=== PATIENT | male | born 1950 | race Caucasian/White ===

== ENCOUNTER → 2024-02-01 09:13 | Outpatient (REF) | payer MEDICARE, SELFPAY | LOC: HWRAD 09:13 | PROVIDERS: ATTENDING PHYSICIAN Family Medicine | DX: Z87.891 Personal history of nicotine dependence (principal) | CPT/HCPCS: 71271 ==

== ENCOUNTER → 2024-06-01 12:09 | Outpatient (REF) | payer MEDICARE, SELFPAY | LOC: HWRAD 12:09 | PROVIDERS: ATTENDING PHYSICIAN Family Medicine | DX: J44.1 Chronic obstructive pulmonary disease with (acute) exacerbation (principal) | CPT/HCPCS: 71046 ==

== ENCOUNTER 2024-06-11 03:51 | Inpatient (IN) | payer MEDICARE, SELFPAY ==
[2024-06-11] VITALS (13 sets, daily range): BP systolic 109–156; BP diastolic 60–97; BMI 32.6; BMI 30.9
--- NOTE | 2024-06-11 02:11 | ED.GENMED ---
History of Present Illness
<Aki Matthew, DO - Last Filed: 06/11/24 03:00>
General
Chief Complaint: Breathing Problem
Source: patient
Exam Limitations: none
Time Seen by Provider: 06/11/24 02:15
Nursing documentation reviewed up to this point in time: agreed with
History of Present Illness
History of Present Illness:
73-year-old male presents with dyspnea and swelling that has been present for the last week to week and a half. Patient states he has been very short of breath. Patient does have a history of COPD and emphysema. He is an everyday smoker though he
is trying to quit. He is down to 5 to 10 cigarettes/day. He also drinks alcohol having 3-6 beers per evening. Patient states that he is on Lasix. He has had leg swelling but reports that this leg swelling is more intense. Denies fever, chills,
chest pain, or shortness of breath..
Patient is not on home oxygen
Vital signs are stable. Patient was hypoxic on room air. O2 sats were 81 to 88%
Nursing note reviewed. I agree with nursing documentation up to this point in time.
Home Meds and allergies reviewed.
NUMBER AND COMPLEXITY OF PROBLEMS ADDRESSED AT THE ENCOUNTER
� Chronic conditions affecting care: Emphysema/COPD, hypertension, hyperlipidemia, CHF, chronic tobacco use, chronic alcohol use
� Acute Exacerbation and/or Progression of Chronic Illness: COPD/CHF
� Differential Diagnosis includes: COPD exacerbation, CHF exacerbation, pneumonia, bronchitis
AMOUNT AND/OR COMPLEXITY OF DATA TO BE REVIEWED AND ANALYZED
I performed an independent evaluation of the following and my interpretation is:
EKG: EKG shows sinus rhythm with PVCs present. Rate of 76. Normal intervals, normal axis. No evidence of acute ischemia present.
CT:
X-rays:
Ultrasound:
Laboratory Studies:
Other:
Review of other/old records: Discharge summary from 08/12/2023, primary care provider visit from January 14, 2023
Clinical information was obtained by an independent historian:
Prescriptions/Medications Considered but not given:
Further testing considered but not performed:
RISK OF COMPLICATIONS AND/OR MORBIDITY OR MORTALITY OF PATIENT MANAGEMENT
Social determinants of health affecting care: Good Social Support
Discussion with other providers: Hospitalist for admission
Escalation of care including admission/observation vs risk of discharge considered: Patient is hypoxic on room air. He will be brought into the hospital
CRITICAL CARE NOTE:
Critical care statement: A total of 30 minutes of critical care time was provided for this patient. This time is separate from time utilized to perform the aforementioned documented procedures. Aggregate critical care time includes only time
during which I was engaged in work directly related to the patient's care, as described above, whether at the bedside or elsewhere in the Emergency Department.
Total Time (exclusive of procedures): 30
Update:
Past History
<Margarette Triana MD, Resident - Last Filed: >
Past History
ED Past Medical History: COPD, HTN, Hypercholesterolemia, NIDDM, IL, Other (agre with documented pmhx and add: COPD.) and Other (TIA, diabetes mellitus type 2, hyperlipidemia, COPD, CAD, IL with CABG, hypertension, sleep apnea, hepatitis C)
ED Past Surgical History: Appendectomy, Cardiac (stents. Has had several stents. Last heart surgery 1997.), Orthopedic and Tonsilectomy
Social History
Tobacco: Smoker
Alcohol: Occasional
Drug: Marijuana
Personal:
Living: with family
Employment: Disabled
Family History
Family History: CAD
Review of Systems
<DO Leyla Floyd Last Filed: 06/11/24 03:00>
Review of Systems
Allergies reviewed?: Yes
All Other Systems: ROS reviewed and negative except as documented in HPI and ROS
Musculoskeletal: Reports edema
Psychiatric: Reports anxiety
Phy Exam
<DO Leyla Floyd Filed: 06/11/24 03:00>
General Physical Exam
General Presentation: moderate distress
General age: appears older than age
General Skin: warm and cyanotic
General Habitus: debilitated
General Mental: alert
General Hydration: appears well hydrated
ENT Exam
ENT Exam: EOMI, pharynx normal, neck supple and normocephalic
Eye Exam
Eye Exam: PERRL, cornea clear and conjunctiva normal
Cardiovascular Exam
Cardiovascular Exam: regular rate/rhythm
Pulmonary Exam
Pulmonary Exam: generalized wheezing
Respirations: mild increase in effort
Breath Sounds: Wheeze: generalized
Gastrointestinal Exam
Gastrointestinal Exam: normal bowel sounds, non tender, soft, no organomegaly, no pulsatile mass and non distended
Neurological Exam
Neurological Exam: alert and oriented x3
Musculoskeletal Exam
Musculoskeletal Exam: full ROM and no edema
Skin Exam
Skin Exam: cyanosis and mottled
Psychiatric Exam
Psychiatric Exam: normal mood/affect
Scores
<Aki Matthew, DO - Last Filed: 06/11/24 03:00>
Heart Failure Risk
Heart Failure Risk Score: Yes
History of Stroke or TIA: Yes
History of intubation for respiratory distress: No
Heart rate on ED arrival >/= 110: No
SaO2 <90% on arrival on room air: Yes
HR >/=110 during 3min walk test (or too ill to perform test): Yes
ECG has acute ischemic changes: Yes
Urea >/=12mmol/L (BUN 33.6mg/dL): No
Serum CO2>/=35mmol/L: Yes
Troponin I or T elevated to [place] Level (0.4mg/dL): No
NT-proBNP >/=5,000ng/L (5,000pg/ml): Yes
HF Risk Score: 9
Admission Status: VERY HIGH RISK 89% Consider admission to hospital
Course
<Aki Matthew, DO - Last Filed: 06/11/24 03:00>
Orders/Labs/Results
Orders:
Orders
06/11/24 02:13
ECG [Electrocardiogram (*1)] Urgent
Reason for Study: Shortness of Breath
EKG- Treatment ONCE
06/11/24 02:15
Furosemide [Lasix] 80 mg IV NOW STA
Pulse Ox/cont/shift [RESP] Stat
Quantity: 4
06/11/24 02:16
CR Chest - 2 Views Urgent
Comment:
Reason For Exam: dyspnea
06/11/24 02:19
Complete Blood Count/With Diff Urgent
Comprehensive Metabolic Panel Urgent
Magnesium Urgent
NT-proBNP Urgent
PTT Urgent
Prothrombin Time Urgent
TSH Urgent
Troponin I Urgent
Abnormal Lab Results
06/11/24
02:19
WBC 11.8 H 10^3/uL
(4.8-10.8)
RBC 6.22 H 10^6/uL
(4.70-6.10)
Hct 54.1 H %
(39.0-52.0)
MCHC 31.1 L g/dL
(33.0-37.0)
RDW 17.7 H %
(11.5-14.5)
Potassium 5.2 H mmol/L
(3.5-5.1)
Carbon Dioxide 37 H mmol/L
(22-30)
BUN 23 H mg/dl
(9-20)
Glucose 141 H mg/dl
(70-99)
Troponin I 0.073 H* ng/ml
06/11/24 02:19
06/11/24 02:19
Vital Signs
Initial and Last Documented VS:
Initial Vital Signs
Temp Pulse Resp BP Pulse Ox
97.8 F 84 30 154/88 86
06/11/24 02:06 06/11/24 02:06 06/11/24 02:06 06/11/24 02:06 06/11/24 02:06
Last Documented Vital Signs
Temp Pulse Resp BP Pulse Ox
97.8 F 77 30 156/87 95
06/11/24 02:06 06/11/24 02:20 06/11/24 02:06 06/11/24 02:20 06/11/24 02:17
<Margarette Triana MD, Resident - Last Filed: >
Orders/Labs/Results
Orders:
Orders
06/11/24 02:13
ECG [Electrocardiogram (*1)] Urgent
Reason for Study: Shortness of Breath
EKG- Treatment ONCE
06/11/24 02:15
Furosemide [Lasix] 80 mg IV NOW STA
Pulse Ox/cont/shift [RESP] Stat
Quantity: 4
06/11/24 02:16
CR Chest - 2 Views Urgent
Comment:
Reason For Exam: dyspnea
06/11/24 02:19
Complete Blood Count/With Diff Urgent
Comprehensive Metabolic Panel Urgent
Magnesium Urgent
NT-proBNP Urgent
PTT Urgent
Prothrombin Time Urgent
TSH Urgent
Troponin I Urgent
Abnormal Lab Results
06/11/24
02:19
WBC 11.8 H 10^3/uL
(4.8-10.8)
RBC 6.22 H 10^6/uL
(4.70-6.10)
Hct 54.1 H %
(39.0-52.0)
MCHC 31.1 L g/dL
(33.0-37.0)
RDW 17.7 H %
(11.5-14.5)
Potassium 5.2 H mmol/L
(3.5-5.1)
Carbon Dioxide 37 H mmol/L
(22-30)
BUN 23 H mg/dl
(9-20)
Glucose 141 H mg/dl
(70-99)
Troponin I 0.073 H* ng/ml
06/11/24 02:19
06/11/24 02:19
Vital Signs
Initial and Last Documented VS:
Initial Vital Signs
Temp Pulse Resp BP Pulse Ox
97.8 F 84 30 154/88 86
06/11/24 02:06 06/11/24 02:06 06/11/24 02:06 06/11/24 02:06 06/11/24 02:06
Last Documented Vital Signs
Temp Pulse Resp BP Pulse Ox
97.8 F 77 30 156/87 95
06/11/24 02:06 06/11/24 02:20 06/11/24 02:06 06/11/24 02:20 06/11/24 02:17
<Aki Matthew DO - Last Filed: 06/11/24 03:00>
*Critical Care Note
Total Time (30-74mins, 75-104mins- exclusive of procedures): 30
comment:
Critical care statement: A total of 30 minutes of critical care time was provided for this patient. This time is separate from time utilized to perform the aforementioned documented procedures. Aggregate critical care time includes only time
during which I was engaged in work directly related to the patient's care, as described above, whether at the bedside or elsewhere in the Emergency Department.
ED Attending Note
<Margarette Triana MD, Resident - Last Filed: >
-
Portions of this chart may have been created with voice recognition software.� Occasional wrong word or��sound alike� substitutions may have occurred due to the inherent limitations of voice recognition software.
Discharge Plan
Departure
Patient Disposition: Admit
Date of Disposition: 06/11/24
Time of Disposition: 02:59
Admit to: Telemetry
Presentation/result/management discussed w/ accepting MD/DO: Hospitalist
Discharge Problem:
Acute exacerbation of CHF (congestive heart failure), Smoker, COPD with exacerbation
Prescriptions:
No Action
isosorbide mononitrate 60 mg Tablet Extended Release 24 Hr
60 mg PO DAILY
nitroglycerin 0.4 MG tablet, sublingual
0.4 mg sublingual [id number] PRN (Reason: chest pain)
albuterol sulfate [ProAir HFA] 90 mcg/actuation Hfa Aerosol Inhaler
2 puff INHALATION R QIDPRN PRN (Reason: sob)
metoprolol tartrate 25 MG tablet
50 mg PO BID
clopidogrel [Plavix] 75 mg Tablet
75 mg PO DAILY
aspirin 81 mg Tablet,Delayed Release (Dr/Ec)
81 mg PO DAILY
furosemide [Lasix] 20 mg Tablet
20 mg PO DAILY
Trelegy Ellipta 100-62.5-25 mcg Blister With Device
1 inh INHALATION R DAILY@1999
atorvastatin 80 mg Tablet
80 mg PO HS
acetaminophen 325 mg Tablet
650 mg PO Q4HPRN PRN (Reason: mild pain or temp > 100.4 F) Qty: 1 0RF
metformin 500 mg Tablet
500 mg PO DAILY@0800 Qty: 0 0RF
Rx Instructions:
Hold after Wednesday dose
lisinopril 40 mg Tablet
40 mg PO DAILY Qty: 0 0RF
Rx Instructions:
hold on the day of surgery
Referrals:
Modesta Turner DO [Family Provider] -
Interventions
Interventions:
*Risk Screen - Suicide Last Done: 06/11/24 02:06
*General Assessment Last Done: 06/11/24 02:15
*Neglect/Abuse Screening Last Done: 06/11/24 02:06
ED- Fall Risk Assessment Last Done: 06/11/24 02:17
ED- Cardiac Assessment Last Done: 06/11/24 02:17
ED- Pulmonary Assessment Last Done: 06/11/24 02:17
Discharge Date and Time
Print Language: PASHTO
[2024-06-11] MEDS: LASIX 80 MG IV (02:20)
[2024-06-11 02:33] LABS: Hematocrit 54.1 % (39.0-52.0); Hemoglobin 16.8 g/dL (13.0-18.0); Mean Corp Hgb Conc. 31.1 g/dL (33.0-37.0); Mean Platelet Volume 10.3 fL (7.4-10.4); Platelet Count 331 10^3/uL (130-400); Red Blood Cell Count 6.22 10^6/uL (4.70-6.10); Red Cell Dist. Width 17.7 % (11.5-14.5); White Blood Cell Count 11.8 10^3/uL (4.8-10.8)
[2024-06-11 02:38] LABS: INR 0.98; PT 12.8 Sec (11.4-14.6)
[2024-06-11 02:45] LABS: ALT (SGPT) 30 U/L (0-50); AST (SGOT) 42 U/L (17-59); Alkaline Phosphatase 95 U/L (38-126); Blood Urea Nitrogen 23 mg/dl (9-20); Calcium 9.8 mg/dl (8.4-10.2); Carbon Dioxide 37 mmol/L (22-30); Chloride 98 mmol/L (98-107); Estimated Creatinine Clearance 88 ml/min; Glucose 141 mg/dl (70-99); Potassium 5.2 mmol/L (3.5-5.1); Sodium 140 mmol/L (135-145); Total Bilirubin 0.9 mg/dl (0.2-1.3); Total Protein 6.7 g/dl (6.3-8.2); eGFR > 60.00
[2024-06-11 02:57] LABS: NT-proBNP 12300 pg/ml; Troponin I 0.073 ng/ml
[2024-06-11 03:00] LABS: % Basophils 0.3 % (0-2); % Eosinophils 1.1 % (0-6); % Immature Granulocytes 0.3 % (0-0.5); % Lymphocytes 14.6 % (20.5-51.1); % Neutrophils 73.7 % (42.2-75.2); Absolute Eosinophils 0.1 10^3/uL (0-0.7); Absolute Lymphocytes 1.7 10^3/uL (1.2-3.4); Absolute Monocytes 1.2 10^3/uL (0.1-0.6); Absolute Neutrophils 8.7 10^3/uL (1.4-6.5); Anisocytosis 1+; Hypersegmented Neutrophil Occasional; Normal RBC Morphology No; Nucleated Red Blood Cells % 0.2 % (-); Target Cells 1+
[2024-06-11 03:01] LABS: Ovalocytes Occasional; Stomatocytes 1+
[2024-06-11 03:18] LABS: TSH 3.43 uIU/ml (0.47-4.68)
--- NOTE | 2024-06-11 03:21 | HPS.HSE ---
Family Physician
-
Family Physician: Modesta Turner
Chief Complaint
-
SoB , Leg and abdomen swelling
History of Present Illness
72M current smoker, ETOH use disorder HX COPD, HTN, HLD, GERD, hep C, diabetes on metformin seen at ER for evalaution of abdominal swelling and Leg sweeling assocaied with Dyspnic at rest.
- noted 20 lbs wt gain over 10 months
- associated with Dyspneic at rest and tachypneic at ER
- denied CP and plapitation
Medical History
Past Medical History
Past Medical History: Reports Other
Additional Past Medical History:
COPD
Hypertension
Hyperlipidemia
Diabetes
MRI
TIA
Coronary artery disease
Sleep apnea
Hepatitis C
Past Surgical History: Reports Other
Additional Past Surgical History:
Appendectomy
cardiac stent
Tonsillectomy
Social History
Tobacco: Smoker (1 pack a day)
Alcohol: Occasional
Drug: Other (Occasional pot smoker)
Family History
Family History: Not pertinent
Allergies / Home Medications
Allergies reflects when Allergies were last updated in [facility].
Home Medications with original date entered in [facility]
Allergy/Medication List:
Allergies
Allergy/AdvReac Type Severity Reaction Status Date / Time
Sulfa (Sulfonamide Allergy hives,itchi Verified 07/26/23 16:07
Antibiotics) ng
Home Medications
albuterol sulfate 90 mcg/actuation aerosol inhaler (ProAir HFA) 2 puff inhalation R QIDPRN PRN sob 02/26/11
isosorbide mononitrate 60 mg tablet,extended release 24 hr 60 mg PO DAILY 02/26/11
lisinopril 40 mg tablet 40 mg PO DAILY 02/26/11
metformin 500 mg tablet 500 mg PO DAILY@0800 02/26/11
metoprolol tartrate 25 mg tablet 25 mg PO BID 02/26/11
nitroglycerin 0.4 mg sublingual tablet 0.4 mg sublingual [id number] PRN chest pain 02/26/11
aspirin 81 mg tablet,delayed release 81 mg PO DAILY 07/25/23
cephalexin 500 mg capsule 500 mg PO QID 10 days #40 caps 07/25/23
clopidogrel 75 mg tablet (Plavix) 75 mg PO DAILY 07/25/23
fluticasone fur. 100 mcg-umeclid 62.5 mcg-vilant 25 mcg inhalat.powder (Trelegy Ellipta) 1 inh inhalation R DAILY 07/25/23
furosemide 20 mg tablet (Lasix) 20 mg PO DAILY 07/25/23
amoxicillin 875 mg-potassium clavulanate 125 mg tablet 1 tab PO BID #20 tabs 07/26/23
Review of Systems
-
Constitutional: Reports No Symptoms
EENT: Reports No Symptoms
Respiratory: Reports See HPI and Trouble Breathing
Cardiac: Reports See HPI
Abdomen/GI: Reports Other (ant abdo wall edema )
: Reports No Symptoms
Musculoskeletal: Reports Edema (both legs )
Skin: Reports No Symptoms
Neurological: Reports No Symptoms
Endocrine: Reports No Symptoms
Hematologic/Lymphatic: Reports No Symptoms
Psych: Reports No Symptoms
Physical Exam
Vital Signs
Vital Signs
Temp Pulse Resp BP Pulse Ox
97.8 F 79 16 137/97 98
06/11/24 02:06 06/11/24 03:00 06/11/24 03:00 06/11/24 03:00 06/11/24 02:21
Physical Exam
General: No Apparent Distress, Comfortable and Conversant
HEENT: NormoCephalic and Anicteric
Respiratory: Wheezes (exp wheeze )
Cardiac: S1/S2 and Regular Rhythm; No Murmur
GI: Soft, Non Tender and Distended
Skin: Warm and Dry
Neuro: AO x 3
Laboratory Results
-
06/11/24 02:19
06/11/24 02:19
Laboratory Results
PT 12.8 Sec (11.4-14.6) 06/11/24 02:19
INR 0.98 06/11/24 02:19
APTT 24.0 Sec (23.4-35.0) 06/11/24 02:19
Total Bilirubin 0.9 mg/dl (0.2-1.3) 06/11/24 02:19
AST 42 U/L (17-59) 06/11/24 02:19
ALT 30 U/L (0-50) 06/11/24 02:19
Alkaline Phosphatase 95 U/L (38-126) 06/11/24 02:19
Troponin I 0.073 ng/ml H* 06/11/24 02:19
Data Reviewed
-
Diagnostic Radiology: Image Personally Visualized and interpreted
Medical Tests (Nuc Med, Echo, EKG etc): Report Reviewed by me
Lab Data: Labs Reviewed by me
Old Records: Reviewed
Impression/Plan
-
WT 90.8 kg(08/05/23 ) ---> 100 kg ( 06/11/24 ): Gained 9.2 kg = 20.2 lb
Data
WCC 11.8
K 5.2
CO2 37
BUN 23
nl Cr nl eGFR
TPNI 0.073
pro BNP 10342 - 687 on 07/29/23
EKG
SINUS RHYTHM WITH OCCASIONAL PREMATURE VENTRICULAR COMPLEXES
NONSPECIFIC T WAVE ABNORMALITY
ABNORMAL ECG
WHEN COMPARED WITH ECG OF 04-AUG-2023 07:03,
PREMATURE VENTRICULAR COMPLEXES ARE NOW PRESENT
CRITERIA FOR INFERIOR INFARCT ARE NO LONGER PRESENT
NONSPECIFIC T WAVE ABNORMALITY NOW EVIDENT IN INFERIOR LEADS
T WAVE INVERSION NOW EVIDENT IN ANTERIOR LEADS
NONSPECIFIC T WAVE ABNORMALITY, IMPROVED IN LATERAL LEADS
CXR pending report
07/28/23 TTE
LVEF 51%
Stage I diastolic dysfunction
Basal to mid inferior wall severe hypokinesis
Normal right ventricular size and function.
No significant valvular disease.
Last hospitalist admission: 07/26/23 - 07/30/23
Primary diagnosis:
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
Bilateral peripheral arterial disease
Mild exacerbation of chronic obstructive pulmonary disease
ASSESSMENT & PLAN
Pending Rx reconciliation
Acute on chr CHF suspect underlying Chr HFmEF
Significant volume overload ( Gained 20 lbs over last 10 months) ? ETOH related liver dz
- cont. IV Lasix 40 BID
- cont> Lisinopril , IMN and Metoprolol
- held Metformin due to acute on chr CHF
- To consider GDMT
- O2 support to keep Pox > 94
- ECHO
- Daily Wt and IOs
- daily BMP
- DCA card consult
Elevated TPNI suspect NIMI
- Trend TPNI till peak
- on ASA and Plavix, BB and Imdur
Distended abdomen ? Free fluid
- US complete abdomen to eval for ascites
Daily ETOH reports 2 -3 cans of Beer only use disorder
- MSAS low risk protocol
HX COPD
- DuoNeb PRN
-Trelegy continued
HX CAD
-Status post cardiac stent
- cont. ASA, Plavix and
Essential hypertension
-BP stable
- on lisinopril, metoprolol and Imdur, Lasix continued
Hyperlipidemia
- cont. statin
T2DM
- add ISS low
- hold metformin due to acute CHF
DVT Px: LMWH
Code: Full
IMU
[2024-06-11] MEDS: ProAIR HFA INHALER 2 PUFF INH ×2 (05:50→19:53)
--- NOTE | 2024-06-11 06:32 | PTCARENOTE ---
Pt arrived from ED to IMU approx 0500. Transferred self from stretcher to room bed without incidence. Complete CHG bath provided. Pt is AAO3, poor historian with medical hx. Pt denies pain. Lung sounds are decreased/crackles throughout w exp wheeze,
+tachypneic, +SCHULTE, pt reports oc moist productive cough w sung/brown sputum, pox 97% on 4L O2 nasal cannula. Telemetry rhythm reveals SR w oc PVCs, HR 70's, +2 lower extremity edema noted, palpable peripheral pulses present. +BS, abdomen round
distended. Pt received IV Lasix in ED, frequent urinal use upon arrival to unit. R AC int flushed and patent, capped. Call liu within reach, safe environment maintained. Will monitor.
[2024-06-11 06:42] LABS: Blood Urea Nitrogen 21 mg/dl (9-20); Chloride 94 mmol/L (98-107); Estimated Creatinine Clearance 96 ml/min; GGTP 18 U/L (15-73); Glucose 119 mg/dl (70-99); INR 0.98; PT 12.8 Sec (11.4-14.6); Potassium 4.3 mmol/L (3.5-5.1); Sodium 140 mmol/L (135-145); eGFR > 60.00
[2024-06-11 06:53] LABS: Carbon Dioxide 36 mmol/L (22-30)
[2024-06-11 06:54] LABS: Troponin I 0.071 ng/ml
[2024-06-11] MEDS: NOVOLOG FLEXPEN-LOW RESISTANCE SC ×2 (07:39→17:30)
[2024-06-11] MEDS: PLAVIX 75 MG PO (07:39)
[2024-06-11] MEDS: ASPIR LOW (ENTERIC COATED) 81 MG PO (07:39)
[2024-06-11] MEDS: ZESTRIL 40 MG PO (07:39)
[2024-06-11] MEDS: FOLVITE 1 MG PO (07:40)
[2024-06-11] MEDS: THIAMINE INJECTION 200 MG IV ×2 (07:40→19:27)
[2024-06-11] MEDS: LASIX 40 MG PO (07:40)
[2024-06-11 07:51] LABS: Glucose - Point of Care 120 mg/dl (70-99)
[2024-06-11] MEDS: SPIRIVA RESPIMAT 2.5 MCG 2 PUFF INH (08:00)
[2024-06-11] MEDS: SYMBICORT 80/4.5 MCG INHALER 2 PUFF INH ×2 (08:01→19:53)
[2024-06-11 08:59] LABS: Glycohemoglobin (HgbA1c) 7.9 % (4.0-5.6)
--- NOTE | 2024-06-11 09:31 | W.PN.HOSP.TC ---
Today's Communication/Plan
-
IV Lasix.
Assessment / Plan
Assessment / Plan
Physical exam:
General: Acutely ill
HEENT: Normocephalic, Atraumatic and Moist Mucous Membranes
Respiratory: Bilateral coarse crackles at the bases; Negative Wheezes, Rales or Rhonchi
Cardiac: Regular Rhythm and S1/S2
GI: Soft, Nontender and Distended
Musculoskeletal: Bilateral lower extremity edema. No Clubbing, No Cyanosis
Neuro: Awake, Alert and Oriented
Psych: Calm
A/P:
Acute on chronic systolic CHF:
IV diuretics, Lasix 40 mg twice a day (switched oral to IV when I saw him)
BNP upon admission, 12,300
Monitor strict I/O
Monitor daily weight
Monitor renal function and electrolytes
Reviewed latest echocardiogram on our system
Continue guideline-directed medical therapy for heart failure (GDMT)
Fluid restriction
Salt restriction
Heart failure education
Follow up clinical response
Cardiology consult
Plan to repeat echocardiogram
Elevated troponin- elevated troponin due to non-ischemic myocardial injury:
Continue to trend troponin
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
Cardiology on board
CAD/peripheral vascular disease:
Continue dual antiplatelet therapy
Continue high-dose statin
COPD:
Continue Spiriva
Continue Symbicort
Add bronchodilators as needed
Hypertension:
Continue SANTIAGO inhibitor
Monitor blood pressure and adjust medications according
Hyperlipidemia:
Continue high-dose statin, atorvastatin 80 mg nightly
Diabetes mellitus type 2:
Insulin sliding scale
Agree holding metformin
Hemoglobin A1c 7.9
Alcohol use disorder:
On MSA protocol
Continue to monitor closely
DVT prophylaxis:
Lovenox
CODE STATUS:
Full code
Anticipated Discharge: > 48 hours
Subjective/Interval History
-
Date of Service: June 11, 2024
Patient continues to have significant peripheral edema. He also has shortness of breath. He denies chest pain. Afebrile
Objective Data
-
Labs:
Laboratory Results
06/11/24 06/11/24
02:19 05:55
WBC 11.8 H
Hgb 16.8
Hct 54.1 H
Plt Count 331
PT 12.8 12.8
INR 0.98 0.98
APTT 24.0
Sodium 140 140
Potassium 5.2 H 4.3
Chloride 98 94 L
Carbon Dioxide 37 H 36 H
BUN 23 H 21 H
Creatinine 0.9 0.8
Glucose 141 H 119 H
Calcium 9.8 9.0
Total Bilirubin 0.9
AST 42
ALT 30
Alkaline Phosphatase 95
Vital Signs:
Vital Signs
Temp Pulse Resp BP Pulse Ox
98.1 F 84 22 156/83 94
06/11/24 07:15 06/11/24 08:00 06/11/24 08:00 06/11/24 07:39 06/11/24 08:31
I&O
06/10/24 06/11/24 06/12/24
06:59 06:59 06:59
Intake Total 480 / 480 40 / 40
Output Total 2800 / 2800 1365 / 1365
Balance -2320 / -2320 -1325 / -1325
--- NOTE | 2024-06-11 09:58 | CON.CAR ---
Consultation
Consultation Request
Date/Time Consultation Requested: June 11, 2024
Date/Time Consultation Performed: June 11, 2024
Requesting Provider: Hospitalist service
Performing Provider: Dr. Ross Rice
Reason for Consultation: Acute congestive heart failure
Medical History
-
Chief Complaint: Shortness of breath and significant weight gain
History of Present Illness:
He presents to [facility] emergency department on June 11, 2024 with increasing dyspnea on exertion and 20 pound weight gain over the course of several months. Accelerated SCHULTE X 2 1 week.
No chest pain.
He is found to be in acute congestive heart failure with marked volume overload.
- proBNP is 12,300
- Chest x-ray with prominent vascular markings consistent with vascular congestion
- Troponin is 0.073 and 0.071
- Electrocardiogram finds sinus rhythm with PVCs, T wave inversions in the anterior leads and nonspecific ST and T wave abnormalities in the inferior leads (T wave abnormalities and ST and T wave abnormalities are new compared to EKG August 04
2022).
Recent cardiac testing:
- Echocardiogram July 28, 2023 finds normal LV size and function with LVEF in the low normal range estimated at 51% with basal to mid inferior wall severe hypokinesis. No significant valvular disease.
- Dobutamine nuclear stress test July 29, 2023 finds large inferior and basal inferior septal infarct without stephanie-infarct ischemia. Baseline LVEF 43%
PMH:
Poor medical compliance
CAD s/p remote CABG at [facility] and PCI at [facility]
History of CVA 2010
PVD, right femoral endarterectomy with saphenous vein angioplasty and right femoral to PT bypass August 04, 2023, Dr. Riley
Osteomyelitis toe
COPD
HTN
HLD
DM2
Ongoing tobacco use
Social History
Tobacco: Smoker
Alcohol: Occasional
Drug: None
Personal: Single
Living: With Family (nephew)
Employment: Retired
Family History
Family History: Reviewed & Not Pertinent
Allergies / Home Medications
Allergy/AdvReac Type Severity Reaction Status Date / Time
Sulfa (Sulfonamide Allergy hives,itchi Verified 06/11/24 02:08
Antibiotics) ng
�Medication �Instructions �Recorded �Confirmed �Type
albuterol sulfate 90 mcg/actuation 2 puff inhalation R QIDPRN PRN sob 02/26/11 06/11/24 History
aerosol inhaler (ProAir HFA)
isosorbide mononitrate 60 mg 60 mg PO DAILY Arrhythmia 02/26/11 06/11/24 History
tablet,extended release 24 hr
metoprolol tartrate 25 mg tablet 50 mg PO BID Heart 02/26/11 06/11/24 History
Disease/Condition
nitroglycerin 0.4 mg sublingual 0.4 mg sublingual [id number] PRN 02/26/11 06/11/24 History
tablet chest pain
aspirin 81 mg tablet,delayed 81 mg PO DAILY Blood Clot 07/25/23 06/11/24 History
release Prevention/Tx
clopidogrel 75 mg tablet (Plavix) 75 mg PO DAILY Blood Clot 07/25/23 06/11/24 History
Prevention/Tx
fluticasone fur. 100 mcg-umeclid 1 inh inhalation R DAILY@199907/25/23 06/11/24 History
62.5 mcg-vilant 25 mcg Lung/Breathing Issues
inhalat.powder (Trelegy Ellipta)
furosemide 20 mg tablet (Lasix) 20 mg PO DAILY Fluid 07/25/23 06/11/24 History
Retention/Swelling
atorvastatin 80 mg tablet 80 mg PO HS High Cholesterol 07/26/23 06/11/24 History
acetaminophen 325 mg tablet 650 mg (2 x 325 mg) PO Q4HPRN PRN 07/30/23 06/11/24 Rx
mild pain or temp > 100.4 F #1 tab
lisinopril 40 mg tablet 40 mg PO DAILY #0 tabs 07/30/23 06/11/24 Rx
metformin 500 mg tablet 500 mg PO DAILY@0800 #0 tabs 07/30/23 06/11/24 Rx
Review of Systems
-
History Source: Patient
All other systems: Negative unless noted
Constitutional: Weight Gain and Fatigue
EENT: No Symptoms
Respiratory: Trouble Breathing
Cardiac: Other (Dyspnea on exertion, orthopnea, lower extremity edema)
Abdomen/GI: Other (Increased abdominal girth)
: No Symptoms
Skin: No Symptoms
Neurological: No Symptoms
Endocrine: No Symptoms
Hematologic/Lymphatic: No Symptoms
Physical Exam
Vital Signs
Temp Pulse Resp BP Pulse Ox
98.1 F 84 22 156/83 94
06/11/24 07:15 06/11/24 08:00 06/11/24 08:00 06/11/24 07:39 06/11/24 08:31
Lab Results
06/11/24 02:19
06/11/24 05:55
Troponin I 0.071 ng/ml H* 06/11/24 05:55
Tdh-T-Smvzcpmiilu Pept 79496 pg/ml 06/11/24 02:19
Physical Exam
General: Well Developed, Well Nourished and Comfortable
HEENT: Normocephalic, Anicteric and Moist Mucous Membranes
Respiratory: Wheezes (Clear to auscultation except for wheezes at the left base, currently without crackles)
Cardiac: S1/S2, Regular Rhythm and Other (Normal S1 and S2, no S3 no S4 degree 1/6 apical holosystolic murmur and 1/6 basal systolic ejection murmur, there are no rubs. PMI is laterally and inferiorly displaced)
Breast: Deferred by me
GI: Soft, Non Tender and Normal Bowel Sounds
Rectal: Deferred by Provider
Musculoskeletal: No Clubbing, No Cyanosis and Edema (There is +2 pitting edema bilateral lower extremities to the knees)
Skin: Warm and Dry
Neuro: Awake, Alert and Oriented
Psych: Calm
Impression / Plan
-
Assessment:
Acute congestive heart failure likely heart failure with reduced ejection fraction
Abnormal EKG and mildly elevated troponin
Poor medical compliance
CAD s/p remote CABG at [facility] and PCI at [facility]
History of CVA 2010
PVD, right femoral endarterectomy with saphenous vein angioplasty and right femoral to PT bypass August 04, 2023, Dr. Riley
Osteomyelitis toe
COPD
HTN
HLD
DM2
Ongoing tobacco use
Recent cardiac testing:
- Echocardiogram July 28, 2023 finds normal LV size and function with LVEF in the low normal range estimated at 51% with basal to mid inferior wall severe hypokinesis. No significant valvular disease.
- Dobutamine nuclear stress test July 29, 2023 finds large inferior and basal inferior septal infarct without stephanie-infarct ischemia. Baseline LVEF 43%
Recommendations:
- Continue IV Lasix diuresis with 40 mg of Lasix IV twice daily and reassess diuretic response, renal function and electrolytes in the morning
- Continue to trend troponin
- Echocardiogram
- Aggressive treatment of his COPD, diabetes and peripheral arterial disease
- Continue high dose statin for dyslipidemia
- Heart failure teaching
Total time spent today was 75 minutes in preparing to see the patient, seeing the patient and coordination of care. This included review of recent laboratory evaluations, testing, imaging studies, hospital records, as well as personally interviewing
and examining the patient, which included discussion of their tests, review/ordering medications and also treatment planning as well as counseling.
Data Reviewed
-
EKG: Tracing Personally Visualized and interpreted and Discussed with Patient
Radiology: Image Personally Visualized and interpreted and Discussed with Patient
Medical Tests (Nuc Med, Echo etc): Report Reviewed by me and Discussed with Patient
Labs: Discussed with Patient
Old Records: Reviewed
--- NOTE | 2024-06-11 10:51 | PTCARENOTE ---
Pt received from architectural representative RN. States his breathing is still somewhat labored but much improved from last night. Ox3 and forgetful. Started to go over heart failure education, pt is stubborn and will require a lot of follow up. NSR with BBB. +
pulses, + 2 pitting LE edema. Dyspneic on exertion, 93% on 2L NC. Breath sounds with crackles at the bases and some ex wheezing throughout. Pt with a smokers cough bringing up the occasional brown sputum. Pt stands at bedside to use urinal. + BS, pt
does not complain of any nausea or ABD pain. Complains of some pain in his legs that began when he noticed the swelling getting worse. Call liu within reach.
[2024-06-11 12:11] LABS: Glucose - Point of Care 160 mg/dl (70-99)
[2024-06-11 12:23] LABS: Troponin I 0.065 ng/ml
--- NOTE | 2024-06-11 12:43 | CM ---
Patient with Hx Etoh Use DO with Dx CHF. O2 2L. Receiving IV Lasix. MSAS 0.
Met with patient who resides with his nephew Thaddeus Hurley in a 2nd floor apartment with 6 + 6 outside stairs.
The patient has been independent in ADLs and ambulation without using an assistive device.
Patient denies any insecurities re; food/housing/utilities/transportation.
His only DME is a [employer].
He had prior VN and is unsure which agency.
Prior [facility].
PCP - Modesta Turner
Pharmacy - [facility]
CM Consult: Advanced Directive
Explained and offered - patient declined.
CM Consult: Substance Abuse
Patient states he no longer drinks hard alcohol and drinks 2-3 beers/week.
He does not feel he needs to speak with [facility] or needs any outpatient Etoh resources/programs.
Offered VN for heart failure education and patient declined, saying he did that years ago. CM suggested need for ongoing HF Education however patient still declined.
Plan watch for any home O2 needs.
Plan home.
[2024-06-11 13:15] LABS: Hepatitis C Antibody Reactive (Negative)
[2024-06-11] MEDS: NOVOLOG FLEXPEN-LOW RESISTANCE 1 UNITS SC (13:26)
[2024-06-11] MEDS: LASIX 40 MG IV (15:57)
[2024-06-11 17:30] LABS: Glucose - Point of Care 134 mg/dl (70-99)
[2024-06-11] MEDS: LOVENOX 40 MG SC (18:35)
[2024-06-11] MEDS: FLUSH (NSS) 2 FLUSH IV (19:27)
[2024-06-11 20:16] LABS: Troponin I 0.069 ng/ml
[2024-06-11] MEDS: LIPITOR 80 MG PO (21:52)
[2024-06-11 22:17] LABS: Glucose - Point of Care 80 mg/dl (70-99)
--- NOTE | 2024-06-11 22:19 | PTCARENOTE ---
Report received from previous shift RN [id number]. Pt in chair, AAO3, denies pain. Lung sounds with exp wheeze throughout and fine crackles in b/l base, +tachypnea, +SCHULTE, oc moist productive cough (pt reports sung sputum). Pox 93-96% on 2L O2 nasal
cannula. Telemetry rhythm reveals SR w BBB, HR 70's, +2 pitting edema noted in b/l lower extremities, palpable peripheral pulses present. +BS, abdomen distended and round, nontender, tolerating ordered diet, reports good appetite, denies abdominal
pain/nausea. Pt assist x1 to stand/walk into bathroom for voiding. Skin dry, intact. R AC int flushed and patent, capped. Safe environment maintained, call liu within reach. Will monitor closely.
[2024-06-12] VITALS (11 sets, daily range): BP systolic 123–156; BP diastolic 60–93; PULSE 85–87; O2SAT 92; BMI 29.6
[2024-06-12 04:29] LABS: Hematocrit 50.5 % (39.0-52.0); Hemoglobin 15.7 g/dL (13.0-18.0); Mean Corp Hgb Conc. 31.1 g/dL (33.0-37.0); Mean Corpuscular Hgb 27.1 pg (27.0-31.0); Mean Corpuscular Volume 87.1 fL (80.0-94.0); Mean Platelet Volume 10.4 fL (7.4-10.4); Platelet Count 310 10^3/uL (130-400); Red Cell Dist. Width 16.5 % (11.5-14.5); White Blood Cell Count 11.8 10^3/uL (4.8-10.8)
[2024-06-12 04:48] LABS: Blood Urea Nitrogen 18 mg/dl (9-20); Calcium 9.2 mg/dl (8.4-10.2); Chloride 89 mmol/L (98-107); Estimated Creatinine Clearance 110 ml/min; Glucose 116 mg/dl (70-99); Magnesium 1.6 mg/dl (1.6-2.3); Potassium 4.2 mmol/L (3.5-5.1); Sodium 137 mmol/L (135-145); eGFR > 60.00
[2024-06-12 05:01] LABS: Carbon Dioxide 42 mmol/L (22-30)
[2024-06-12] MEDS: SYMBICORT 80/4.5 MCG INHALER 2 PUFF INH ×2 (08:03→19:45)
[2024-06-12] MEDS: SPIRIVA RESPIMAT 2.5 MCG 2 PUFF INH (08:03)
--- NOTE | 2024-06-12 08:16 | W.PN.HOSP.TC ---
Addendum entered and electronically signed by Bacilio Bell MD 06/12/24 15:17:
Updated daughter. Will have vascular surgery eval
Original Note:
Today's Communication/Plan
-
IV Lasix. Echocardiogram.
Assessment / Plan
Assessment / Plan
Physical exam:
General: Acutely ill
HEENT: Normocephalic, Atraumatic and Moist Mucous Membranes
Respiratory: Bilateral coarse crackles at the bases; Few scattered wheezes, No Rales or Rhonchi
Cardiac: Regular Rhythm and S1/S2
GI: Soft, Nontender and Distended
Musculoskeletal: Bilateral lower extremity edema. No Clubbing, No Cyanosis
Neuro: Awake, Alert and Oriented
Psych: Calm
A/P:
Acute on chronic systolic CHF:
IV diuretics, Lasix 40 mg twice a day
Weight coming down 100kg-->95-->91 kg today
BNP upon admission, 12,300
Monitor strict I/O
Monitor daily weight
Monitor renal function and electrolytes
Reviewed latest echocardiogram on our system
Continue guideline-directed medical therapy for heart failure (GDMT)
Fluid restriction
Salt restriction
Heart failure education
Follow up clinical response
Cardiology consult
Plan to repeat echocardiogram during this hospital stay
Transfer to telemetry
PT OT eval
Elevated troponin- elevated troponin due to non-ischemic myocardial injury:
Continue to trend troponin
residential monitor
Cardiology on board
CAD/peripheral vascular disease:
Continue dual antiplatelet therapy
Continue high-dose statin
COPD:
Continue Spiriva
Continue Symbicort
Add bronchodilators as needed
Hypertension:
Continue SANTIAGO inhibitor
Monitor blood pressure and adjust medications according
Hyperlipidemia:
Continue high-dose statin, atorvastatin 80 mg nightly
Diabetes mellitus type 2:
Insulin sliding scale
Agree holding metformin
Hemoglobin A1c 7.9
Alcohol use disorder:
On MSA protocol
Continue to monitor closely
Active smoker/nicotine use disorder:
Strongly advised quit smoking
Start nicotine patch
DVT prophylaxis:
Lovenox
CODE STATUS:
Full code
Total time spent on today's encounter was 52 minutes which included time spent in counseling the patient/family regarding diagnosis and treatment plan as listed above, goals of care, and symptom management. Case was discussed with nursing staff,
specialists, and care coordinators/case management. All labs and imaging personally reviewed by me. Remainder the time spent in detailed review of previous records, lab data, imaging, and other medical provider documentation.
Anticipated Discharge: 24 - 48 hours
Subjective/Interval History
-
Date of Service: June 12, 2024
Patient feels less short of breath overall. Less peripheral edema. No chest pain. Afebrile
Objective Data
-
Labs:
Laboratory Results
06/12/24
04:03
WBC 11.8 H
Hgb 15.7
Hct 50.5
Plt Count 310
Sodium 137
Potassium 4.2
Chloride 89 L
Carbon Dioxide 42 H
BUN 18
Creatinine 0.7
Glucose 116 H
Calcium 9.2
Vital Signs:
Vital Signs
Temp Pulse Resp BP Pulse Ox
98.5 F 84 22 147/66 93
06/12/24 03:20 06/12/24 08:06 06/12/24 08:06 06/12/24 06:00 06/12/24 08:06
I&O
06/11/24 06/12/24 06/13/24
06:59 06:59 06:59
Intake Total 480 / 480 1000 / 1000
Output Total 2800 / 2800 4060 / 4060 275 / 275
Balance -2320 / -2320 -3060 / -3060 -275 / -275
[2024-06-12] MEDS: THIAMINE INJECTION 200 MG IV ×2 (08:19→20:29)
[2024-06-12] MEDS: ASPIR LOW (ENTERIC COATED) 81 MG PO (08:20)
[2024-06-12] MEDS: ZESTRIL 40 MG PO (08:20)
[2024-06-12] MEDS: NOVOLOG FLEXPEN-LOW RESISTANCE SC (08:20)
[2024-06-12] MEDS: FOLVITE 1 MG PO (08:20)
[2024-06-12] MEDS: PLAVIX 75 MG PO (08:20)
[2024-06-12] MEDS: LASIX 40 MG IV ×2 (08:30→16:40)
[2024-06-12 08:34] LABS: Glucose - Point of Care 129 mg/dl (70-99)
[2024-06-12] MEDS: NICODERM TRANSDERMAL 14 MG TRANSDERM (10:14)
--- NOTE | 2024-06-12 11:31 | W.PN.CARDCBS ---
Today's Communication / Plan
-
Continue IV Lasix
Check echo
Impression / Plan
-
Assessment:
Acute congestive heart failure likely heart failure with reduced ejection fraction
Abnormal EKG and mildly elevated troponin
Poor medical compliance
CAD s/p remote CABG at [facility] [place] and PCI at [place]
History of CVA 2010
PVD, right femoral endarterectomy with saphenous vein angioplasty and right femoral to PT bypass August 04, 2023, Dr. Riley
Osteomyelitis toe
COPD
HTN
HLD
DM2
Ongoing tobacco use
Recent cardiac testing:
- Echocardiogram July 28, 2023 finds normal LV size and function with LVEF in the low normal range estimated at 51% with basal to mid inferior wall severe hypokinesis. No significant valvular disease.
- Dobutamine nuclear stress test July 29, 2023 finds large inferior and basal inferior septal infarct without stephanie-infarct ischemia. Baseline LVEF 43%
Recommendations:
He continues with signs of CHF with edema and hypoxia.
He remains on 2 L of oxygen
Weights may not be accurate. He was 220 pounds on admission then 209 pounds 3 hours later and likely first week was a bed scale. Weight is down 9 pounds in the past 24 hours but unclear if that is accurate as well as first standing scale weight
was 200 pounds. Other weights were on bed scale
Will continue IV Lasix
Check echocardiogram
Progress Note - Building Construction Estimator
Subjective
Date of Service: June 12, 2024
He feels okay. No chest pain or shortness of breath
Objective
Labs:
06/12/24 04:03
06/12/24 04:03
Labs
Hgb 15.7 g/dL (13.0-18.0) 06/12/24 04:03
Hct 50.5 % (39.0-52.0) 06/12/24 04:03
Plt Count 310 10^3/uL (130-400) 06/12/24 04:03
PT 12.8 Sec (11.4-14.6) 06/11/24 05:55
INR 0.98 06/11/24 05:55
APTT 24.0 Sec (23.4-35.0) 06/11/24 02:19
Sodium 137 mmol/L (135-145) 06/12/24 04:03
Potassium 4.2 mmol/L (3.5-5.1) 06/12/24 04:03
BUN 18 mg/dl (9-20) 06/12/24 04:03
Creatinine 0.7 mg/dL (0.7-1.3) 06/12/24 04:03
Glucose 116 mg/dl (70-99) H 06/12/24 04:03
Troponins
06/11/24 06/11/24 06/11/24
02:19 05:55 11:47
Troponin I 0.073 H* 0.071 H* 0.065 H*
06/11/24
19:32
Troponin I 0.069 H*
Vital Signs and I&O:
Vital Signs
Temp Pulse Resp BP Pulse Ox
98.2 F 84 18 123/73 93
06/12/24 11:15 06/12/24 11:15 06/12/24 11:15 06/12/24 11:15 06/12/24 11:15
Vital Signs
Temp Pulse Resp BP Pulse Ox
98.2 F 84 18 123/73 93
06/12/24 11:15 06/12/24 11:15 06/12/24 11:15 06/12/24 11:15 06/12/24 11:15
Intake & Output
06/10/24 06/11/24 06/12/24 06/13/24
06:59 06:59 06:59 06:59
Intake Total 480 / 480 1000 / 1000 240 / 240
Output Total 2800 / 2800 4060 / 4060 1575 / 1575
Balance -2320 / -2320 -3060 / -3060 -1335 / -1335
Physical Exam
Physical Exam
General: Well developed, well nourished in NAD.
Neck: Supple, no JVD, HJR, carotids +2 B/L, no bruits bilaterally.
Heart: Non displaced PMI, RRR, no murmurs, No S3, S4, no rubs.
Lungs: Crackles at the bases bilaterally
Abdomen: Normal bowel sounds, soft, non-tender, non-distended.
Extremities: Mild edema bilaterally.
Neuro: Grossly nonfocal, awake, alert and oriented x3.
[2024-06-12] MEDS: MAG-TAB SR 84 MG PO ×2 (12:14→20:29)
[2024-06-12 12:18] LABS: Glucose - Point of Care 151 mg/dl (70-99)
[2024-06-12] MEDS: NOVOLOG FLEXPEN-LOW RESISTANCE 1 UNITS SC ×2 (12:22→17:02)
[2024-06-12 16:53] LABS: Glucose - Point of Care 175 mg/dl (70-99)
[2024-06-12] MEDS: LOVENOX 40 MG SC (17:01)
[2024-06-12 19:09] LABS: Phosphorus 3.3 mg/dl (2.5-4.5)
[2024-06-12] MEDS: DUONEB 3 ML INH (19:45)
[2024-06-12] MEDS: LIPITOR 80 MG PO (20:29)
[2024-06-12 21:48] LABS: Glucose - Point of Care 120 mg/dl (70-99)
[2024-06-13] MEDS: DUONEB 3 ML INH ×2 (03:21→20:50)
[2024-06-13 03:38] VITALS: BP 131/72
[2024-06-13 06:00] VITALS: BMI 28.6
[2024-06-13 07:00] VITALS: BP 145/83
[2024-06-13 07:13] LABS: Blood Urea Nitrogen 15 mg/dl (9-20); Calcium 9.7 mg/dl (8.4-10.2); Chloride 85 mmol/L (98-107); Estimated Creatinine Clearance 97 ml/min; Glucose 127 mg/dl (70-99); Phosphorus 2.9 mg/dl (2.5-4.5); Potassium 4.2 mmol/L (3.5-5.1); Sodium 135 mmol/L (135-145); eGFR > 60.00
[2024-06-13 07:24] LABS: Carbon Dioxide 41 mmol/L (22-30)
[2024-06-13] MEDS: SYMBICORT 80/4.5 MCG INHALER INH (08:01)
[2024-06-13] MEDS: SPIRIVA RESPIMAT 2.5 MCG INH (08:01)
--- NOTE | 2024-06-13 08:23 | CON.VAS ---
Addendum entered and electronically signed by Cl Riley MD 06/13/24 09:10:
Seen and examined with BRITTNEY Pitts. Agree with findings as noted below. 73-year-old male known to me status post right lower extremity femoral endarterectomy and femoral to posterior tibial artery bypass 08/04/2023. Was due for follow-up in the
office however had not followed up. Here with exacerbation of CHF. Weight gain. Swelling in the legs. No wounds or complaints of pain in the legs. On exam his prior right lower extremity incisions are fully healed. There is no isolated
hematoma in the thigh or calf. Bilateral calf moderate edema noted. His feet are both pink and warm with no rubor, no ulcerations bilaterally. Right sided 2+ PT pulse palpable on the foot. Plan/as discussed and noted below. Based on exam, he
has good graft function. Would obtain lower extremity arterial duplex imaging since he is due for follow-up while he is here.
Original Note:
Medical History
-
Chief Complaint: SOB, weight gain
History of Present Illness:
73M current smoker, ETOH use disorder HX COPD, HTN, HLD, GERD, hep C, diabetes on metformin seen at ER for evalaution of abdominal swelling and Leg sweeling assocaied with Dyspnic at rest.
- noted 20 lbs wt gain over 10 months
- associated with Dyspneic at rest and tachypneic at ER
- denied CP and plapitation
Vascular procedures:
08/04/2023: right femoral endarterectomy with saphenous vein angioplasty with right femoral to PT bypass
Past Medical History
Past Medical History: Other (PAD, CAD, COPD, hypertension, hypercholesterolemia, diabetes, TIA, sleep apnea, hepatitis C, appendectomy, CABG, cardiac catheterizations with PCI and tonsillectomy, current smoker.)
Past Surgical History: Other
Social History
Tobacco: Smoker
Alcohol: Occasional
Drug: Marijuana
Family History
Family History: Reviewed & Not Pertinent
Allergies / Home Medications
Allergy/AdvReac Type Severity Reaction Status Date / Time
Sulfa (Sulfonamide Allergy hives,itchi Verified 06/11/24 02:08
Antibiotics) ng
�Medication �Instructions �Recorded �Confirmed �Type
albuterol sulfate 90 mcg/actuation 2 puff inhalation R QIDPRN PRN sob 02/26/11 06/11/24 History
aerosol inhaler (ProAir HFA)
isosorbide mononitrate 60 mg 60 mg PO DAILY Arrhythmia 02/26/11 06/11/24 History
tablet,extended release 24 hr
metoprolol tartrate 25 mg tablet 50 mg PO BID Heart 02/26/11 06/11/24 History
Disease/Condition
nitroglycerin 0.4 mg sublingual 0.4 mg sublingual [id number] PRN 02/26/11 06/11/24 History
tablet chest pain
aspirin 81 mg tablet,delayed 81 mg PO DAILY Blood Clot 07/25/23 06/11/24 History
release Prevention/Tx
clopidogrel 75 mg tablet (Plavix) 75 mg PO DAILY Blood Clot 07/25/23 06/11/24 History
Prevention/Tx
fluticasone fur. 100 mcg-umeclid 1 inh inhalation R DAILY@199907/25/23 06/11/24 History
62.5 mcg-vilant 25 mcg Lung/Breathing Issues
inhalat.powder (Trelegy Ellipta)
furosemide 20 mg tablet (Lasix) 20 mg PO DAILY Fluid 07/25/23 06/11/24 History
Retention/Swelling
atorvastatin 80 mg tablet 80 mg PO HS High Cholesterol 07/26/23 06/11/24 History
acetaminophen 325 mg tablet 650 mg (2 x 325 mg) PO Q4HPRN PRN 07/30/23 06/11/24 Rx
mild pain or temp > 100.4 F #1 tab
lisinopril 40 mg tablet 40 mg PO DAILY #0 tabs 07/30/23 06/11/24 Rx
metformin 500 mg tablet 500 mg PO DAILY@0800 #0 tabs 07/30/23 06/11/24 Rx
Review of Systems
-
History Source: Patient
Constitutional: Reports Weight Gain and Fatigue
EENT: Reports No Symptoms
Respiratory: Reports Trouble Breathing
Cardiac: Reports No Symptoms
Vascular: Denies Leg Pain / Claudication, Numbness or Tingling
Abdomen/GI: Reports No Symptoms
: Reports No Symptoms
Musculoskeletal: Reports Edema
Skin: Reports No Symptoms
Neurological: Reports No Symptoms
Endocrine: Reports No Symptoms
Physical Exam
Vital Signs
Temp Pulse Resp BP Pulse Ox
98.4 F 92 18 145/83 94
06/13/24 07:00 06/13/24 07:00 06/13/24 07:00 06/13/24 07:00 06/13/24 07:00
Lab Results
06/12/24 04:03
06/13/24 05:33
Troponin I 0.069 ng/ml H* 06/11/24 19:32
Wup-X-Poekrmajuzz Pept 23332 pg/ml 06/11/24 02:19
Physical Exam
General: No Apparent Distress
HEENT: Normocephalic and Atraumatic
Respiratory: Non Labored Respirations
Cardiac: Negative JVD
GI: Soft and Non Tender
Musculoskeletal: No Clubbing, No Cyanosis and Edema (Bilateral lower extremities)
Skin: Warm and Dry
Neuro: Awake, Alert and Oriented
Psych: Calm
Pulses: Bilateral Femoral: +2 and Right Posterior Tibial: +1
Assessment / Plan
-
73-year-old male admitted for CHF workup, swelling
Plan:
-New arterial ultrasounds today
-Venous ultrasound to rule out DVT
-Palpable right PT pulse
-No open wounds, swelling likely due to CHF
-Seen and assessed with Dr. Riley
Data Reviewed
-
Labs: Labs Reviewed by me
--- NOTE | 2024-06-13 08:27 | W.PN.HOSP.TC ---
Today's Communication/Plan
-
IV Lasix. Doppler LE
Assessment / Plan
Assessment / Plan
Physical exam:
General: Acutely ill
HEENT: Normocephalic, Atraumatic and Moist Mucous Membranes
Respiratory: Bilateral coarse crackles at the bases; Few scattered wheezes, No Rales or Rhonchi
Cardiac: Regular Rhythm and S1/S2
GI: Soft, Nontender and Distended
Musculoskeletal: Bilateral lower extremity edema. No Clubbing, No Cyanosis
Neuro: Awake, Alert and Oriented
Psych: Calm
A/P:
Acute on chronic systolic CHF:
IV diuretics, Lasix 40 mg twice a day
Weight coming down 100kg-->95-->91-->87.6 kg today
BNP upon admission, 12,300
Monitor strict I/O
Monitor daily weight
Monitor renal function and electrolytes
Reviewed latest echocardiogram on our system
Continue guideline-directed medical therapy for heart failure (GDMT)
Fluid restriction
Salt restriction
Heart failure education
Follow up clinical response
Cardiology consult appreciated
Plan to repeat echocardiogram during this hospital stay--> EF 50% and no significant changes from prior echo
Updated daughter yesterday
PT OT eval
Hypoxia:
Wean oxygen
Home oxygen needs assessment tomorrow
Elevated troponin- elevated troponin due to non-ischemic myocardial injury:
Continue to trend troponin
vehicle monitor technician
Cardiology on board
CAD:
Continue dual antiplatelet therapy
Continue high-dose statin
PVD:
Continue antiplatelets and statin
status post right lower extremity femoral endarterectomy and femoral to posterior tibial artery bypass 08/04/2023
Vascular surgery evaluation for bilateral lower extremity- patient and family request
Plan for arterial duplex of lower extremities today
Bedbug:
Implement sanitary measures and infection control.
COPD:
Continue Spiriva
Continue Symbicort
Bronchodilators as needed
Hypertension:
Continue SANTIAGO inhibitor
Monitor blood pressure and adjust medications according
Hyperlipidemia:
Continue high-dose statin, atorvastatin 80 mg nightly
Diabetes mellitus type 2:
Insulin sliding scale
Agree holding metformin-can either restart or check for SGLT-2 inhibitor upon discharge
Hemoglobin A1c 7.9
Alcohol use disorder:
On MSA protocol
Continue to monitor closely
Active smoker/nicotine use disorder:
Strongly advised quit smoking
Start nicotine patch
DVT prophylaxis:
Lovenox
CODE STATUS:
Full code
Anticipated Discharge: 24 - 48 hours
Subjective/Interval History
-
Date of Service: June 13, 2024
Patient feels less short of breath. No chest pain. Less swelling in his legs. Still requiring oxygen.
Objective Data
-
Labs:
Laboratory Results
06/13/24
05:33
Sodium 135
Potassium 4.2
Chloride 85 L
Carbon Dioxide 41 H
BUN 15
Creatinine 0.7
Glucose 127 H
Calcium 9.7
Vital Signs:
Vital Signs
Temp Pulse Resp BP Pulse Ox
98.4 F 92 18 145/83 94
06/13/24 07:00 06/13/24 07:00 06/13/24 07:00 06/13/24 07:00 06/13/24 07:00
I&O
06/12/24 06/13/24 06/14/24
06:59 06:59 06:59
Intake Total 1000 / 1000 960 / 960
Output Total 4060 / 4060 1575 / 1575
Balance -3060 / -3060 -615 / -615
[2024-06-13] MEDS: FOLVITE 1 MG PO (09:42)
[2024-06-13] MEDS: PLAVIX 75 MG PO (09:42)
[2024-06-13] MEDS: NICODERM TRANSDERMAL 14 MG TRANSDERM (09:42)
[2024-06-13] MEDS: THIAMINE INJECTION 200 MG IV ×2 (09:42→20:54)
[2024-06-13] MEDS: NOVOLOG FLEXPEN-LOW RESISTANCE 1 UNITS SC ×2 (09:42→12:35)
[2024-06-13] MEDS: ZESTRIL 40 MG PO (09:42)
[2024-06-13] MEDS: LASIX 40 MG IV ×2 (09:42→16:07)
[2024-06-13] MEDS: MAG-TAB SR 84 MG PO ×2 (09:42→20:53)
[2024-06-13] MEDS: ASPIR LOW (ENTERIC COATED) 81 MG PO (09:42)
[2024-06-13 09:44] LABS: Glucose - Point of Care 185 mg/dl (70-99)
--- NOTE | 2024-06-13 10:30 | PTCARENOTE ---
Pt down to ultrasound this morning, staff there reported finding a bed bug on pt during testing. Questionable bite abreu on b/l LE - pt reports abreu are from legs weeping upon admission to hospital. Pt showered and linens changed upon return to
room.
[2024-06-13 11:00] VITALS: BP 119/69
[2024-06-13 11:50] LABS: Glucose - Point of Care 157 mg/dl (70-99)
--- NOTE | 2024-06-13 12:07 | W.PN.CARDCBS ---
Addendum entered and electronically signed by Shadi Riggs MD 06/13/24 12:39:
I saw and examined the patient.
The BATTERY PLATE REMOVER or PA's note was reviewed and I agree with the note.
Comment: General: Well developed, well nourished in NAD.
Neck: Supple, no JVD, HJR, carotids +2 B/L, no bruits bilaterally.
Heart: Non displaced PMI, RRR, no murmurs, No S3, S4, no rubs.
Lungs: Scattered rhonchi
Extremities: No clubbing, cyanosis or edema bilaterally.
Neuro: Grossly nonfocal, awake, alert and oriented x3.
Seems to be improving. Continue IV Lasix. Consider changing to oral Lasix in next 24 to 48 hours. Resume Lopressor at lower dose. Consider outpatient stress test.
Original Note:
Today's Communication / Plan
-
continue IV lasix diuresis
resume OP lopressor at lower dose
Impression / Plan
-
Assessment:
Acute congestive heart failure likely heart failure with reduced ejection fraction
Abnormal EKG and mildly elevated troponin
Poor medical compliance
CAD s/p remote CABG at [facility] and PCI at [place]
History of CVA 2010
PVD, right femoral endarterectomy with saphenous vein angioplasty and right femoral to PT bypass August 04, 2023, Dr. Riley
Osteomyelitis toe
COPD
HTN
HLD
DM2
Ongoing tobacco use
Recent cardiac testing:
- Echocardiogram July 28, 2023 finds normal LV size and function with LVEF in the low normal range estimated at 51% with basal to mid inferior wall severe hypokinesis. No significant valvular disease.
- Dobutamine nuclear stress test July 29, 2023 finds large inferior and basal inferior septal infarct without stephanie-infarct ischemia. Baseline LVEF 43%
Echo 06/12/2024: EF 50%, basal inferior wall hypokinetic on parasternal short axis views, RV mildly dilated, mildly dilated RA, no significant valvular disease noted
Recommendations:
-He continues to improve and weight trending down if accurate
-Continue IV Lasix. Wean supplemental oxygen as able
-Creatinine stable
-CHF education
-Echo with results as above, EF preserved
-Given history of PVD and osteomyelitis, not good candidate for SGLT2 inhibitor
-Outpatient Lopressor and Imdur currently on hold. in SR with 1 brief Atach episode overnight by review of tele. Will resume Lopressor at lower dose of 25 mg twice daily. Continue lisinopril.
-Continue aspirin, Plavix, statin
-trop peaked at 0.073. no CP. consider for OP ischemic evaluation
-Continue precautions for suspected bedbugs
-smoking cessation
Progress Note - Broadband Engineer
Subjective
Date of Service: June 13, 2024
reports breathing improving
Objective
Labs:
06/12/24 04:03
06/13/24 05:33
Labs
Hgb 15.7 g/dL (13.0-18.0) 06/12/24 04:03
Hct 50.5 % (39.0-52.0) 06/12/24 04:03
Plt Count 310 10^3/uL (130-400) 06/12/24 04:03
PT 12.8 Sec (11.4-14.6) 06/11/24 05:55
INR 0.98 06/11/24 05:55
APTT 24.0 Sec (23.4-35.0) 06/11/24 02:19
Sodium 135 mmol/L (135-145) 06/13/24 05:33
Potassium 4.2 mmol/L (3.5-5.1) 06/13/24 05:33
BUN 15 mg/dl (9-20) 06/13/24 05:33
Creatinine 0.7 mg/dL (0.7-1.3) 06/13/24 05:33
Glucose 127 mg/dl (70-99) H 06/13/24 05:33
Troponins
06/11/24 06/11/24 06/11/24
02:19 05:55 11:47
Troponin I 0.073 H* 0.071 H* 0.065 H*
06/11/24
19:32
Troponin I 0.069 H*
Vital Signs and I&O:
Vital Signs
Temp Pulse Resp BP Pulse Ox
98.2 F 88 18 119/69 94
06/13/24 11:00 06/13/24 11:00 06/13/24 11:00 06/13/24 11:00 06/13/24 11:00
Vital Signs
Temp Pulse Resp BP Pulse Ox
98.2 F 88 18 119/69 94
06/13/24 11:00 06/13/24 11:00 06/13/24 11:00 06/13/24 11:00 06/13/24 11:00
Intake & Output
06/11/24 06/12/24 06/13/24 06/14/24
07:59 07:59 07:59 07:59
Intake Total 480 / 480 1000 / 1000 960 / 960
Output Total 3250 / 3250 3885 / 3885 1300 / 1300
Balance -2770 / -2770 -2885 / -2885 -340 / -340
[2024-06-13 15:00] VITALS: BP 136/78
--- NOTE | 2024-06-13 16:21 | CM ---
Case management following for discharge planning
Chart reviewed
Diuresing, Doppler LE
Found to have bed bugs
Remains on oxygen - weaning
Home oxygen eval tomorrow - watch for needs
Plan - anticipate home - monitor O2 needs
[2024-06-13 16:44] LABS: Glucose - Point of Care 123 mg/dl (70-99)
[2024-06-13] MEDS: NOVOLOG FLEXPEN-LOW RESISTANCE SC (17:00)
[2024-06-13] MEDS: LOVENOX 40 MG SC (17:18)
[2024-06-13] MEDS: AYR SALINE NASAL GEL 1 APPLIC NASAL (18:12)
[2024-06-13 19:46] VITALS: BP 155/85
[2024-06-13] MEDS: SYMBICORT 80/4.5 MCG INHALER 2 PUFF INH (20:45)
[2024-06-13] MEDS: LOPRESSOR 25 MG PO (20:54)
[2024-06-13] MEDS: LIPITOR 80 MG PO (20:54)
[2024-06-13 21:35] LABS: Glucose - Point of Care 292 mg/dl (70-99)
[2024-06-13 23:49] VITALS: BP 136/79
[2024-06-14 04:01] VITALS: BP 140/79
--- NOTE | 2024-06-14 05:07 | DOWNTIME ---
There was a [employer] Client [employer] Manager Downtime on 06/14/2024 from 0100 to 06/14/2024 at 0252. Downtime documentation of patient's care, including medication administrations, has been reconciled in the electronic record per guidelines. Refer to the
patient's paper chart under the miscellaneous tab to see printed paper medication records and downtime forms.
[2024-06-14] MEDS: MAG-TAB SR 84 MG PO (07:27)
[2024-06-14] MEDS: FOLVITE 1 MG PO (07:27)
[2024-06-14] MEDS: PLAVIX 75 MG PO (07:27)
[2024-06-14] MEDS: ASPIR LOW (ENTERIC COATED) 81 MG PO (07:27)
[2024-06-14] MEDS: NICODERM TRANSDERMAL 14 MG TRANSDERM (07:27)
[2024-06-14] MEDS: VITAMIN B1 100 MG PO (07:27)
[2024-06-14 07:36] LABS: Glucose - Point of Care 132 mg/dl (70-99)
[2024-06-14] MEDS: LOPRESSOR 25 MG PO (07:39)
[2024-06-14] MEDS: ZESTRIL 40 MG PO (07:40)
[2024-06-14] MEDS: NOVOLOG FLEXPEN-LOW RESISTANCE SC ×2 (07:40→11:59)
[2024-06-14] MEDS: LASIX 40 MG IV (07:40)
[2024-06-14 07:49] VITALS: BP 125/66
[2024-06-14] MEDS: SYMBICORT 80/4.5 MCG INHALER 2 PUFF INH (07:51)
[2024-06-14 08:07] LABS: Blood Urea Nitrogen 17 mg/dl (9-20); Calcium 9.8 mg/dl (8.4-10.2); Chloride 89 mmol/L (98-107); Estimated Creatinine Clearance 97 ml/min; Glucose 133 mg/dl (70-99); Potassium 4.4 mmol/L (3.5-5.1); Sodium 134 mmol/L (135-145); eGFR > 60.00
[2024-06-14 08:30] LABS: Carbon Dioxide 36 mmol/L (22-30)
--- NOTE | 2024-06-14 09:26 | W.PN.CARDCBS ---
Addendum entered and electronically signed by Cesar Hopkins DO 06/14/24 13:28:
.
General: No acute distress, AAOX3
Neck: Negative JVD
Heart: Regular, Negative S3 positive S1/S2, Negative S4, No murmur
Lungs: CTA b/l, negative wheezes/rales/rhonchi
Abd: Positive BS, NT/ND, neg rebound/rigidity/guarding
Ext: Negative cyanosis/clubbing/edema
Neuro: nonfocal
Addendum entered and electronically signed by Cesar Hopkins DO 06/14/24 12:40:
I saw and examined the patient.
The Catalyst Recovery Operator's note was reviewed and I agree with the note.
Comment:
Plan:
Transtion to PO lasix.
Increase Lopressor back to 50 mg BID
Resume Imdur
Echo stable.
BMP in 1 week.
Consider outpt monitoring at time of follow up visit.
Will arrange outpt cardiac follow up.
Original Note:
Today's Communication / Plan
-
Consider transition to p.o. Lasix
Increase Lopressor back to 50 mg twice daily
Resume outpatient Imdur
Will arrange outpatient cardiac follow-up
BMP in 1 week upon discharge
Consider for outpatient cardiac monitoring
Impression / Plan
-
Assessment:
Acute congestive heart failure likely heart failure with reduced ejection fraction
Abnormal EKG and mildly elevated troponin
Poor medical compliance
CAD s/p remote CABG at [facility] and PCI at [place]
History of CVA 2010
PVD, right femoral endarterectomy with saphenous vein angioplasty and right femoral to PT bypass August 04, 2023, Dr. Riley
Osteomyelitis toe
COPD
HTN
HLD
DM2
Ongoing tobacco use
Recent cardiac testing:
- Echocardiogram July 28, 2023 finds normal LV size and function with LVEF in the low normal range estimated at 51% with basal to mid inferior wall severe hypokinesis. No significant valvular disease.
- Dobutamine nuclear stress test July 29, 2023 finds large inferior and basal inferior septal infarct without stephanie-infarct ischemia. Baseline LVEF 43%
Echo 06/12/2024: EF 50%, basal inferior wall hypokinetic on parasternal short axis views, RV mildly dilated, mildly dilated RA, no significant valvular disease noted
Recommendations:
-He reports he is feeling well and is eager for discharge. Reports continued good urine output with IV Lasix
-Consider transition to p.o. Is listed as taking 20 mg p.o. Lasix daily prior to admission. Would plan for at least 40 mg daily upon discharge, but perhaps even twice daily
-Will need BMP in 1 week
-CHF education
-Echo with results as above, EF stable at 50% with known basal inferior hypokinesis
-Remains in sinus rhythm with 1 brief episode of A. tach overnight as well as with PVCs and possible 9 beat run of NSVT versus aberrant conduction. K/mag stable. Will increase Lopressor dose back to outpatient dosing of 50 mg twice daily. Consider
outpatient cardiac monitoring
-continue outpatient lisinopril. Will resume outpatient Imdur
-Given history of PVD and osteomyelitis, not good candidate for SGLT2 inhibitor
-Continue aspirin, Plavix, statin
-trop peaked at 0.073. no CP. consider for OP ischemic evaluation
-Continue precautions for suspected bedbugs
-smoking cessation
-Will arrange outpatient cardiac follow-up
-for possible DC in next 24 hours
Progress Note - Delivery Driver Assistant
Subjective
Date of Service: June 14, 2024
Feeling well. Eager for discharge. Denies shortness of breath. Reports good urine output
Objective
Labs:
06/12/24 04:03
06/14/24 07:33
Labs
Hgb 15.7 g/dL (13.0-18.0) 06/12/24 04:03
Hct 50.5 % (39.0-52.0) 06/12/24 04:03
Plt Count 310 10^3/uL (130-400) 06/12/24 04:03
PT 12.8 Sec (11.4-14.6) 06/11/24 05:55
INR 0.98 06/11/24 05:55
APTT 24.0 Sec (23.4-35.0) 06/11/24 02:19
Sodium 134 mmol/L (135-145) L 06/14/24 07:33
Potassium 4.4 mmol/L (3.5-5.1) 06/14/24 07:33
BUN 17 mg/dl (9-20) 06/14/24 07:33
Creatinine 0.7 mg/dL (0.7-1.3) 06/14/24 07:33
Glucose 133 mg/dl (70-99) H 06/14/24 07:33
Troponins
06/11/24 06/11/24
11:47 19:32
Troponin I 0.065 H* 0.069 H*
Vital Signs and I&O:
Vital Signs
Temp Pulse Resp BP Pulse Ox
98 F 88 16 125/66 93
06/14/24 07:49 06/14/24 08:01 06/14/24 08:01 06/14/24 07:49 06/14/24 08:57
Vital Signs
Temp Pulse Resp BP Pulse Ox
98 F 88 16 125/66 93
06/14/24 07:49 06/14/24 08:01 06/14/24 08:01 06/14/24 07:49 06/14/24 08:57
Intake & Output
06/12/24 06/13/24 06/14/24 06/15/24
07:59 07:59 07:59 07:59
Intake Total 1000 / 1000 960 / 960 480 / 480
Output Total 3885 / 3885 1300 / 1300
Balance -2885 / -2885 -340 / -340 480 / 480
[2024-06-14 09:51] VITALS: O2SAT 85; O2SAT 93
--- NOTE | 2024-06-14 09:54 | RESPNOTE ---
Respiratory: Pulse oximetery done to for home oxygen: SpO2 86% on room air, 85% walking. Maintained SpO2 93 on 3 LPM nasal cannula with walk. Tolerated well.
[2024-06-14] MEDS: IMDUR (EXTENDED RELEASE) 60 MG PO (11:45)
[2024-06-14 11:51] LABS: Glucose - Point of Care 130 mg/dl (70-99)
[2024-06-14 12:01] VITALS: BP 105/88
--- NOTE | 2024-06-14 13:03 | W.PN.HOSP.TC ---
Addendum entered and electronically signed by Oscar Hutchins DO 06/14/24 14:14:
COPD without exacerbation
Original Note:
Today's Communication/Plan
-
Discharge
Assessment / Plan
Assessment / Plan
General: Acutely ill
HEENT: Normocephalic, Atraumatic and Moist Mucous Membranes
Respiratory: Bilateral coarse crackles at the bases; Few scattered wheezes, No Rales or Rhonchi
Cardiac: Regular Rhythm and S1/S2
GI: Soft, Nontender and Distended
Musculoskeletal: Bilateral lower extremity edema. No Clubbing, No Cyanosis
Neuro: Awake, Alert and Oriented
Psych: Calm
Acute on chronic systolic CHF: Clinically improving on IV Lasix. Can change to oral today as per cardiology. Outpatient follow-up.
Weight coming down 100kg-->95-->91-->87.6 kg today
BNP upon admission, 12,300
Monitor strict I/O
Monitor daily weight
Monitor renal function and electrolytes
Reviewed latest echocardiogram on our system
Continue guideline-directed medical therapy for heart failure (GDMT)
Fluid restriction
Salt restriction
Heart failure education
Follow up clinical response
Cardiology consult appreciated
Plan to repeat echocardiogram during this hospital stay--> EF 50% and no significant changes from prior echo
Updated daughter yesterday
PT OT eval
Acute hypoxic respiratory insufficiency -arrange for home oxygen. Case management aware.
Patient is in need of oxygen at 3 liters/minute via nasal cannula continuously due to pulse oximetry of 86% on room air at rest. Oxygen will help to improve hypoxemia. Patient is mobile within the home. DuoNeb therapy has been tried and is
ineffective in treating hypoxemia related symptoms. Oxygen is needed to improve symptoms.
Elevated troponin- elevated troponin due to non-ischemic myocardial injury:
Continue to trend troponin
case monitor
Cardiology on board
CAD:
Continue dual antiplatelet therapy
Continue high-dose statin
PVD:
Continue antiplatelets and statin
status post right lower extremity femoral endarterectomy and femoral to posterior tibial artery bypass 08/04/2023
Vascular surgery evaluation for bilateral lower extremity- patient and family request
Plan for arterial duplex of lower extremities today
Bedbug:
Implement sanitary measures and infection control.
COPD:
Continue Spiriva
Continue Symbicort
Bronchodilators as needed
Hypertension:
Continue SANTIAGO inhibitor
Monitor blood pressure and adjust medications according
Hyperlipidemia:
Continue high-dose statin, atorvastatin 80 mg nightly
Diabetes mellitus type 2:
Insulin sliding scale
Agree holding metformin-can either restart or check for SGLT-2 inhibitor upon discharge
Hemoglobin A1c 7.9
Alcohol use disorder:
On MSA protocol
Continue to monitor closely
Active smoker/nicotine use disorder:
Strongly advised quit smoking
Start nicotine patch
DVT prophylaxis:
Lovenox
Full code
Dispo - medically stable for discharge. Outpatient follow-up.
33 minutes spent in discharge process.
Anticipated Discharge: Today
Subjective/Interval History
-
Date of Service: June 14, 2024
Patient seen and examined. Denies shortness of breath. Feels better. No complaints. Eager to go home.
Objective Data
-
Labs:
Laboratory Results
06/14/24
07:33
Sodium 134 L
Potassium 4.4
Chloride 89 L
Carbon Dioxide 36 H
BUN 17
Creatinine 0.7
Glucose 133 H
Calcium 9.8
Vital Signs:
Vital Signs
Temp Pulse Resp BP Pulse Ox
98.5 F 77 18 105/88 93
06/14/24 12:01 06/14/24 12:01 06/14/24 12:01 06/14/24 12:01 06/14/24 12:01
I&O
06/13/24 06/14/24 06/15/24
06:59 06:59 06:59
Intake Total 960 / 960 480 / 480
Output Total 1575 / 1575
Balance -615 / -615 480 / 480
Review of Systems
-
History Source: Patient
All other systems: Reviewed and negative
--- NOTE | 2024-06-14 13:12 | PN.CDI ---
CDI
- -
CDI:
Physician Documentation Request
Admit Date: 06/11/24 03:51
Dear Doctor Cuong,
Please review the following and provide your response in the progress notes.
Clinical Indicators:
The diagnosis of COPD with exacerbation was documented on 06/11 in ED note but is not consistently noted in subsequent documentation.
Please clarify the following:
____ - COPD exacerbation was present on admission.
____ - COPD was ruled out
____ - Other
Use of terms such as suspected, likely, concern for, or probable (associated with a specific diagnosis that is being evaluated, monitored, or treated as if it exists) are acceptable and can be coded in the inpatient setting, when documented at the
time of discharge.
Thank you,
Kelli Whitley RN, BSN
CDI Specialist
tiger text
Please use your independent medical judgment in providing your response.
--- NOTE | 2024-06-14 13:25 | W.DS.TRANS ---
DC Summary - Admissions Assistant
-
Discharge Instructions:
Sleep Apnea Risk High
Discharge Diagnosis/Procedures Acute heart failure exacerbation
Diet 2 Gram Sodium,Restrict fluids to 48 oz
Activity As tolerated
Driving Restrictions As prior to admission
Bathing Restrictions None
Blood Work BMP in 1 week
Specialty Instructions Weigh Daily
Instructions: *PCP/Other Vacuum Pan Operator Heart Failure Instructions
Stand-Alone Forms:
Changes to Home Medications: No
Discharge Medications:
DC Medications w/original date entered in [employer]
albuterol sulfate 90 mcg/actuation aerosol inhaler (ProAir HFA) 2 puff inhalation R [id number] PRN sob 02/26/11
isosorbide mononitrate 60 mg tablet,extended release 24 hr 60 mg PO DAILY Heart Disease/Condition 02/26/11
nitroglycerin 0.4 mg sublingual tablet 0.4 mg sublingual [id number] PRN chest pain 02/26/11
aspirin 81 mg tablet,delayed release 81 mg PO DAILY Blood Clot Prevention/Tx 07/25/23
clopidogrel 75 mg tablet (Plavix) 75 mg PO DAILY Blood Clot Prevention/Tx 07/25/23
fluticasone fur. 100 mcg-umeclid 62.5 mcg-vilant 25 mcg inhalat.powder (Trelegy Ellipta) 1 inh inhalation R DAILY@2000 Lung/Breathing Issues 07/25/23
atorvastatin 80 mg tablet 80 mg PO HS High Cholesterol 07/26/23
lisinopril 40 mg tablet 40 mg PO DAILY #0 tabs 07/30/23
folic acid 1 mg tablet 1 mg PO DAILY #30 tabs 06/14/24
furosemide 40 mg tablet 40 mg PO DAILY #30 tabs 06/14/24
metoprolol tartrate 50 mg tablet 50 mg PO BID #60 tabs 06/14/24
nicotine 14 mg/24 hr daily transdermal patch 14 mg transdermal DAILY #0 ea 06/14/24
thiamine HCl (vitamin B1) 100 mg tablet 100 mg PO BID #60 tabs 06/14/24
Home Medication Changes
Pending Results: No
--- NOTE | 2024-06-14 13:30 | CM ---
Addendum entered by Magui Flores 06/14/24 16:28:
Received massage from Nano at [facility]
Pt refused delivery of Home O2 at his home. Informed delivery architect he wants to speak to his own doctor.
[facility] rep reports will reach out to patient in AM
DR Hutchins made aware
Called pt to discuss need for oxygen - pt reported he did not need oxygen and does not want it
Reviewed home oxygen assessment with pt - continued to state he does not need oxygen
Instructed to call [facility] if he changes his mind or to return O2 tank - pt acknowledged he would contact [facility]
Original Note:
Pt requiring Home O2 - home O2 assessment completed
Spoke with Nano at [facility] [phone]
Clinicals faxed to [phone]
[place] O2 brought to bedside - Pt will be contacted for home delivery
Discussed poss bed bugs at home - need to have home assessed and cleaned - pt insisting there are no bed bugs at home. Pt lives with his nephew - he is aware.
Pt reports he has transport home
Discussed IMM
Plan - home with Oxygen - delivered to bedside
== END 2024-06-14 14:53 | disposition home or self-care (01) | DRG 291 ==
LOC: 3 WEST ACU 03:51
PROVIDERS: Hospitalist; ADMITTING PHYSICIAN Internal Medicine; ATTENDING PHYSICIAN Hospitalist; CONSULT PHYSICIAN Internal Medicine Cardiovascular Disease; CONSULT PHYSICIAN Surgery Vascular Surgery; EMERGENCY PHYSICIAN Student in an Organized Health Care Education/Training Program; FAMILY PHYSICIAN Family Medicine
DX: I11.0 Hypertensive heart disease with heart failure (principal); I50.23 Acute on chronic systolic (congestive) heart failure; J44.9 Chronic obstructive pulmonary disease, unspecified; J43.9 Emphysema, unspecified; I5A Non-ischemic myocardial injury (non-traumatic); E11.51 Type 2 diabetes mellitus with diabetic peripheral angiopathy without gangrene; E78.00 Pure hypercholesterolemia, unspecified; K21.9 Gastro-esophageal reflux disease without esophagitis; G47.30 Sleep apnea, unspecified; I25.10 Atherosclerotic heart disease of native coronary artery without angina pectoris; R09.02 Hypoxemia; B88.8 Other specified infestations; F17.210 Nicotine dependence, cigarettes, uncomplicated; I25.2 Old myocardial infarction; Z86.73 Personal history of transient ischemic attack (TIA), and cerebral infarction without residual deficits; Z95.820 Peripheral vascular angioplasty status with implants and grafts; Z95.5 Presence of coronary angioplasty implant and graft; Z88.2 Allergy status to sulfonamides; Z95.1 Presence of aortocoronary bypass graft; Z79.899 Other long term (current) drug therapy; Z79.84 Long term (current) use of oral hypoglycemic drugs; Z79.02 Long term (current) use of antithrombotics/antiplatelets; Z79.82 Long term (current) use of aspirin
CPT/HCPCS: 71046; 76705; 80048; 80053; 82962; 82977; 83036; 83735; 83880; 84100; 84443; 84484; 85025; 85027; 85610; 85730; 86803; 93005; 93306; 93922; 93925; 94640; 94761; 96374; 97163; 97166; 99291; 99406

== ENCOUNTER 2024-07-16 13:16 | Inpatient (IN) | payer MEDICARE, SELFPAY ==
[2024-07-16] VITALS (10 sets, daily range): BP systolic 121–160; BP diastolic 60–131; BMI 32.6; BMI 33.0
[2024-07-16 10:15] LABS: % Basophils 0.6 % (0-2); % Eosinophils 0.7 % (0-6); % Immature Granulocytes 0.3 % (0-0.5); % Lymphocytes 7.7 % (20.5-51.1); % Monocytes 8.8 % (1.7-9.3); % Neutrophils 81.9 % (42.2-75.2); Absolute Basophils 0.1 10^3/uL (0-0.2); Absolute Eosinophils 0.1 10^3/uL (0-0.7); Absolute Lymphocytes 0.8 10^3/uL (1.2-3.4); Absolute Neutrophils 8.9 10^3/uL (1.4-6.5); Hematocrit 49.6 % (39.0-52.0); Hemoglobin 14.9 g/dL (13.0-18.0); Mean Corpuscular Hgb 26.2 pg (27.0-31.0); Mean Corpuscular Volume 87.3 fL (80.0-94.0); Mean Platelet Volume 9.6 fL (7.4-10.4); Nucleated Red Blood Cells % 0.2 % (-); Platelet Count 350 10^3/uL (130-400); Red Blood Cell Count 5.68 10^6/uL (4.70-6.10); Red Cell Dist. Width 18.6 % (11.5-14.5); White Blood Cell Count 10.9 10^3/uL (4.8-10.8)
[2024-07-16 10:32] LABS: ALT (SGPT) 20 U/L (0-50); AST (SGOT) 31 U/L (17-59); Albumin 3.6 g/dl (3.5-5.0); Alkaline Phosphatase 98 U/L (38-126); Blood Urea Nitrogen 23 mg/dl (9-20); Calcium 9.7 mg/dl (8.4-10.2); Carbon Dioxide 33 mmol/L (22-30); Chloride 95 mmol/L (98-107); Glucose 108 mg/dl (70-99); Potassium 5.2 mmol/L (3.5-5.1); Sodium 138 mmol/L (135-145); Total Bilirubin 0.7 mg/dl (0.2-1.3); Total Protein 6.1 g/dl (6.3-8.2); eGFR > 60.00
[2024-07-16 10:40] LABS: NT-proBNP 12000 pg/ml
--- NOTE | 2024-07-16 11:24 | ED.GENMED ---
History of Present Illness
General
Chief Complaint: Skin Problem
Source: patient
Exam Limitations: none
Time Seen by Provider: 07/16/24 09:04
History of Present Illness
History of Present Illness:
73-year-old male with history of CHF, hepatitis C, peripheral vascular disease, coronary disease who presents with concerns about his skin on his lower extremities. He states they are flaking off left. Of note, patient does still smoke. He does
have a history of right femoral bypass. Patient notes that he was sent oxygen last time he was here but when it arrived to his home he felt he did not need it and declined. The patient admits that he made a mistake and he should have brought it.
He does feel short of breath. No fevers.
Past History
Past History
ED Past Medical History: COPD, HTN, Hypercholesterolemia, NIDDM, MO, Other (agre with documented pmhx and add: COPD.) and Other (TIA, diabetes mellitus type 2, hyperlipidemia, COPD, CAD, MO with CABG, hypertension, sleep apnea, hepatitis C)
ED Past Surgical History: Appendectomy, Cardiac (stents. Has had several stents. Last heart surgery 1997.), Orthopedic and Tonsilectomy
Social History
Tobacco: Smoker
Alcohol: Occasional
Drug: Marijuana
Personal:
Living: with family
Employment: Disabled
Family History
Family History: CAD
Phy Exam
Physical Exam
Physical Exam:
CONSTITUTIONAL Patient alert and oriented to person, place and time. Vital signs reviewed.
HEAD atraumatic, normocephalic.
EYES eyelids normal to inspection, Extraocular muscles intact, Conjunctiva normal, Sclera normal.
NECK normal range of motion, Trachea midline, no jugular venous distention.
RESPIRATORY CHEST No respiratory distress noted, Chest expansion equal, poor air movement, diminished at bilateral bases
CARDIOVASCULAR regular rate and rhythm, Heart sounds normal.
BACK normal inspection, no obvious deformities
UPPER EXTREMITY range of motion normal, Motor strength normal, no cyanosis, no edema.
LOWER EXTREMITY marked edema to bilateral lower extremities to his hips. Pulses are difficult to feel the right lower extremity. Does have history of bypass in that area. Denies any pain. He does have some scaling of the skin to bilateral lower
extremities. He has tense edema with weeping left greater than right.
NEURO Speech normal, No focal motor deficits, Sahra coma scale 15, Memory normal, Cranial Nerves intact to screening exam.
SKIN skin warm, dry, and normal in color.
PSYCHIATRIC patient oriented to person place and time, Normal affect.
Course
Orders/Labs/Results
Orders:
Orders
07/16/24 09:37
CR Chest - 2 Views Urgent
Comment:
Reason For Exam: LE edema, sob
07/16/24 10:00
Complete Blood Count/With Diff Urgent
Comprehensive Metabolic Panel Urgent
NT-proBNP Urgent
07/16/24 11:23
Furosemide [Lasix] 40 mg IV NOW STA
07/16/24 11:52
Electrocardiogram (*1) Urgent
Reason for Study: Shortness of Breath
EKG- Treatment ONCE
07/16/24 12:27
Admit/Transfer Patient As Directed
Co-Sign Provider:
Level of Care: Inpatient admission
Assign to:: Telemetry
Physician / Group: charly
Diagnosis: chf exacerbation
Reason for Telemetry: Arrhythmia
Date to Stop Telemetry: 07/19/24
Time to Stop Telemetry: 11:00
Reason for Hospitalization: chf exacerbation
Expected length of stay greater than two midnights?: Yes
ELOS- Estimated Length of Stay in days: 2
I certify the patient meets the requirements for IP care: Yes
Code Status As Directed
Resuscitation Status: Do not resuscitate
Reached after discussion with pt or family/Healthcare POA: Yes
DNR Bracelet Application ONCE
PRN Pain Medication Management As Directed
May give lesser potent ordered pain med per pt: Yes
preference::
Protocol:: Medication orders for pain may be administered in a
manner that supports deferring to patient preference
when the pt is:
- Requesting an ordered lesser potent pain medication.
Least to most potent pain medications are defined
as: acetaminophen < NSAID < tramadol < opioids
(morphine, oxycodone, hydromorphone).
- Requesting a lesser dose of the same medication IF
ORDERED.
- Requesting a less intrusive route of administration
if both routes are prescribed by the provider (PO <
IV).
07/19/24 11:00
DC Protocol for Telemetry ONCE
Abnormal Lab Results
07/16/24
10:00
WBC 10.9 H 10^3/uL
(4.8-10.8)
MCH 26.2 L pg
(27.0-31.0)
MCHC 30.0 L g/dL
(33.0-37.0)
RDW 18.6 H %
(11.5-14.5)
Absolute Neuts (auto) 8.9 H 10^3/uL
(1.4-6.5)
Absolute Lymphs (auto) 0.8 L 10^3/uL
(1.2-3.4)
Absolute Monos (auto) 1.0 H 10^3/uL
(0.1-0.6)
Neutrophils % 81.9 H %
(42.2-75.2)
Lymphocytes % 7.7 L %
(20.5-51.1)
Potassium 5.2 H mmol/L
(3.5-5.1)
Chloride 95 L mmol/L
(98-107)
Carbon Dioxide 33 H mmol/L
(22-30)
BUN 23 H mg/dl
(9-20)
Glucose 108 H mg/dl
(70-99)
Total Protein 6.1 L g/dl
(6.3-8.2)
07/16/24 10:00
07/16/24 10:00
Vital Signs
Initial and Last Documented VS:
Initial Vital Signs
Temp Pulse Resp BP Pulse Ox
97.7 F 71 18 159/131 92
07/16/24 08:41 07/16/24 08:41 07/16/24 08:41 07/16/24 08:41 07/16/24 08:41
Last Documented Vital Signs
Temp Pulse Resp BP Pulse Ox
97.7 F 73 27 125/60 98
07/16/24 08:41 07/16/24 12:15 07/16/24 12:15 07/16/24 12:00 07/16/24 12:15
MDM/Problems Addressed
MDM/Problems Addressed:
Chronic tobacco abuse, congestive heart failure, cor pulmonale, RV failure, peripheral vascular disease
*Radiology
Radiology exam reviewed: radiology read reviewed and all reviewed NAD by ED Provider
*Pulse Oximetry
Patient hypoxic: yes
*Critical Care Note
Total Time (30-74mins, 75-104mins- exclusive of procedures): Not Applicable
Data Reviewed
Review of Other/Old Records Reveals: Progress Notes (Vascular surgery notes reviewed from July 2023) and Discharge Summary (Discharge summary from May reviewed)
Prescriptions/Medications Considered But Not Given:
Consider antibiotics but do not suspect cellulitis.
Patient Management
Discussion with other providers: Hospitalist and Piper Helper (Case discussed with Dr. Riley. Recommends ultrasound evaluation versus CT with runoff. Will discuss with hospitalist)
Escalation/DeEscalation of care consider admission/obs:
73-year-old male who again is at 100 kg clearly volume overloaded. on recent discharge, his weight was down to 87.6 kg. He does have concerning findings on his exam his lower extremities worrying about perfusion that I suspect is somewhat
chronic. Likely could benefit from vascular evaluation. For now we will add diuresis and admit. Do not suspect cellulitis. Patient canceled his home oxygen. Presented with 86% on room air.
ED Attending Note
-
Portions of this chart may have been created with voice recognition software.� Occasional wrong word or��sound alike� substitutions may have occurred due to the inherent limitations of voice recognition software.
Discharge Plan
Departure
Patient Disposition: Admit
Date of Disposition: 07/16/24
Time of Disposition: 11:29
Admit to: Telemetry
Presentation/result/management discussed w/ accepting MD/DO: Hospitalist
Discharge Problem:
RVF (right ventricular failure), CHF (congestive heart failure), Peripheral vascular disease
Prescriptions:
No Action
isosorbide mononitrate 60 mg Tablet Extended Release 24 Hr
60 mg PO DAILY
clopidogrel [Plavix] 75 mg Tablet
75 mg PO DAILY
aspirin 81 mg Tablet,Delayed Release (Dr/Ec)
81 mg PO DAILY
Trelegy Ellipta 100-62.5-25 mcg Blister With Device
1 inh INHALATION R DAILY@1999
atorvastatin 80 mg Tablet
80 mg PO HS
lisinopril 40 mg Tablet
40 mg PO DAILY Qty: 0 0RF
Rx Instructions:
hold on the day of surgery
folic acid 1 mg Tablet
1 mg PO DAILY Qty: 30 0RF
metoprolol tartrate 50 mg Tablet
50 mg PO BID Qty: 60 0RF
furosemide 40 mg tablet
40 mg PO DAILY Qty: 30 0RF
albuterol sulfate 90 mcg/actuation HFA aerosol inhaler
2 puff INHALATION R QIDPRN PRN (Reason: sob)
Referrals:
Modesta Turner DO [Family Provider] -
Interventions
Interventions:
*Risk Screen - Suicide Last Done: 07/16/24 08:41
*General Assessment Last Done: 07/16/24 08:41
*Neglect/Abuse Screening Last Done: 07/16/24 08:41
*ED COVID-19 Vaccine History Last Done: 07/16/24 08:41
Discharge Date and Time
Print Language: DANISH
--- NOTE | 2024-07-16 12:32 | HPS.HSE ---
Family Physician
-
Family Physician: Modesta Turner
Chief Complaint
-
swelling legs
History of Present Illness
73-year-old male past medical history of PAD status post right femoral bypass last year, hepatitis C, CAD status post CABG, CHF, COPD, hypertension, diabetes, obstructive sleep apnea, hyperlipidemia, presenting with increased swelling of his left
lower extremity over the past few weeks. He has swelling of his left lower extremity with redness. He has pain of the left heel. He also reports soreness and cramping of the left calf with ambulation.
He reports that his right leg where he previously had bypass feels okay.
He reports increasing shortness of breath with exertion. He has chronic cough which is at baseline. He denies fevers or chills. He has increased abdominal distention and thinks he has gained a lot of weight although he does not check.
Patient was recently admitted last month for CHF exacerbation. He refused home oxygen at that time which he regrets at this time.
When asked about his hepatitis C history patient is not sure if he has had a history of this.
He smokes less than a half a pack of cigarettes a day. Drinks a beer occasionally.
Medical History
Past Medical History
Past Medical History: Reports Other (PAD status post right femoral bypass last year, hepatitis C, CAD status post CABG, CHF, COPD, hypertension, diabetes, obstructive sleep apnea, hyperlipidemia)
Past Surgical History: Reports Other (Appendectomy, Cardiac (stents. Has had several stents. Last heart surgery 1997.), Orthopedic and Tonsilectomy)
Social History
Tobacco: Smoker
Alcohol: Occasional
Drug: None
Family History
Family History: Not pertinent
Allergies / Home Medications
Allergies reflects when Allergies were last updated in [facility] [employer].
Home Medications with original date entered in [facility] [employer]
Allergy/Medication List:
Allergies
Allergy/AdvReac Type Severity Reaction Status Date / Time
Sulfa (Sulfonamide Allergy hives,itchi Verified 07/16/24 08:45
Antibiotics) ng
Home Medications
isosorbide mononitrate 60 mg tablet,extended release 24 hr 60 mg PO DAILY Heart Disease/Condition 02/26/11
aspirin 81 mg tablet,delayed release 81 mg PO DAILY Blood Clot Prevention/Tx 07/25/23
clopidogrel 75 mg tablet (Plavix) 75 mg PO DAILY Blood Clot Prevention/Tx 07/25/23
fluticasone fur. 100 mcg-umeclid 62.5 mcg-vilant 25 mcg inhalat.powder (Trelegy Ellipta) 1 inh inhalation R DAILY@2000 Lung/Breathing Issues 07/25/23
atorvastatin 80 mg tablet 80 mg PO HS High Cholesterol 07/26/23
lisinopril 40 mg tablet 40 mg PO DAILY #0 tabs 07/30/23
folic acid 1 mg tablet 1 mg PO DAILY #30 tabs 06/14/24
furosemide 40 mg tablet 40 mg PO DAILY #30 tabs 06/14/24
metoprolol tartrate 50 mg tablet 50 mg PO BID #60 tabs 06/14/24
albuterol sulfate 90 mcg/actuation aerosol inhaler 2 puff inhalation R QIDPRN PRN sob 07/16/24
Review of Systems
-
History Source: Patient
A 12 point ROS was completed and negative except as noted: Yes
Constitutional: Reports No Symptoms
EENT: Reports No Symptoms
Respiratory: Reports See HPI
Cardiac: Reports See HPI
Abdomen/GI: Reports See HPI
: Reports No Symptoms
Musculoskeletal: Reports No Symptoms
Skin: Reports See HPI
Neurological: Reports No Symptoms
Endocrine: Reports No Symptoms
Hematologic/Lymphatic: Reports No Symptoms
Psych: Reports No Symptoms
Physical Exam
Vital Signs
Vital Signs
Temp Pulse Resp BP Pulse Ox
97.7 F 71 18 128/64 92
07/16/24 08:41 07/16/24 08:41 07/16/24 08:41 07/16/24 11:00 07/16/24 08:41
Physical Exam
General: Well Developed, Well Nourished and No Apparent Distress
HEENT: NormoCephalic, Moist mucous membranes and Atraumatic
Respiratory: Clear
Cardiac: S1/S2, Regular Rhythm and Peripheral Edema; No Murmur or Rub
GI: Soft, Non Tender, Non Distended and Normal Bowel Sounds; No Organomegaly
Rectal: Deferred by Provider
Musculoskeletal: No Clubbing, No Cyanosis and No Edema
Skin: Other (left lower extremity erythema, swelling ); No Rash
Neuro: Nonfocal/grossly intact
Laboratory Results
-
07/16/24 10:00
07/16/24 10:00
Laboratory Results
Total Bilirubin 0.7 mg/dl (0.2-1.3) 07/16/24 10:00
AST 31 U/L (17-59) 07/16/24 10:00
ALT 20 U/L (0-50) 07/16/24 10:00
Alkaline Phosphatase 98 U/L (38-126) 07/16/24 10:00
Data Reviewed
-
Lab Data: Labs Reviewed by me
Old Records: Reviewed
Impression/Plan
-
IMPRESSION:
PLAN:
# Acute on chronic HFrEF exacerbation
-Cardiac BNP of 12,000
-Chest x-ray clear
-Check I's and O's, daily weights
-40 IV Lasix twice daily
-Echo from last month shows EF of 50%, hypokinetic inferior wall
-Cardiology consulted
# Likely chronic ischemia of left lower extremity
# PAD status post right femoral bypass
-Diminished Doppler pulses of right lower extremity although there is edema
-No concern for acute ischemia
-Vascular surgery consulted and recommended CTA of aorta with runoff
# Mild hyperkalemia secondary to lisinopril
-Monitor with diuresis
CAD status post CABG
-Continue aspirin, Plavix and statin
-Continue metoprolol
-Continue isosorbide mononitrate
COPD
-Continue albuterol
-Continue Trelegy Ellipta
Active smoker
-Nicotine patch
Obstructive sleep apnea
-Does not use CPAP
Essential hypertension
-Continue lisinopril
History of hepatitis C
-Patient unsure about history
-Check hepatitis C antibody to confirm presence/eradication
Type 2 diabetes
Hyperlipidemia
DNR/DNI
DVT prophylaxis�heparin
Cardiac diet
[2024-07-16] MEDS: LASIX 40 MG IV ×2 (13:56→17:32)
--- NOTE | 2024-07-16 17:25 | PTCARENOTE ---
Admitted to room 415-1. AOx3. NSR w/ BBBC and prolonged QT on telemetry, HR 70s. Plan of care discussed. Encouraged to make needs known.
[2024-07-16] MEDS: SYMBICORT 80/4.5 MCG INHALER 2 PUFF INH (20:10)
[2024-07-16] MEDS: DESENEX/MITRAZOL/ZEASORB 1 APPLIC TOPICAL (20:22)
[2024-07-16] MEDS: HEPARIN 5000 UNITS SC (20:23)
[2024-07-16] MEDS: LOPRESSOR 50 MG PO (20:28)
[2024-07-16] MEDS: LIPITOR 80 MG PO (20:29)
[2024-07-17 03:20] VITALS: BP 110/69
[2024-07-17 06:00] VITALS: BMI 32.4
--- NOTE | 2024-07-17 07:17 | CON.CAR ---
Addendum entered and electronically signed by Cesar Hopkins DO 07/17/24 12:29:
I saw and examined the patient.
The Door Attendant's note was reviewed and I agree with the note.
Comment:
Plan:
Acute heart failure likely heart failure with mildly reduced ejection fraction
CAD s/p remote CABG at [facility] and PCI at [place]
History of CVA 2010
NSVT
PAD, right femoral endarterectomy with saphenous vein angioplasty and right femoral to PT bypass August 04, 2023, Dr. Riley
Poor medical compliance
Osteomyelitis toe
COPD
HTN
HLD
DM2
Ongoing tobacco use
h/o bedbugs 06/17 admission
Recent cardiac testing:
- Echo 06/12/2024: EF 50%, basal inferior wall hypokinetic on parasternal short axis views, RV mildly dilated, mildly dilated RA, no significant valvular disease noted
- Echocardiogram July 28, 2023 finds normal LV size and function with LVEF in the low normal range estimated at 51% with basal to mid inferior wall severe hypokinesis. No significant valvular disease.
- Dobutamine nuclear stress test July 29, 2023 finds large inferior and basal inferior septal infarct without stephanie-infarct ischemia. Baseline LVEF 43%
LE ABIs 07/16/24:
L KEREN 0.54
R KEREN 0.91
Left common femoral artery is occluded, as is the proximal and midportion of the left SFA.
Abd CTA 07/16/24
1. Patent right femoral to posterior tibial arterial bypass graft.
2. Chronic complete occlusion of the entire right superficial femoral artery with reconstitution at the level of the popliteal artery.
3. Chronic occlusion of the left superficial femoral artery at its origin with some reconstitution of flow at the level of the severely stenotic distal left SFA and popliteal artery.
4. Patent stent in the left common femoral artery/profunda femoris.
5. Severe aortobiiliac calcified atherosclerosis.
6. Infrarenal abdominal aortic aneurysm measuring 3.6 cm diameter.
7. Mild abdominopelvic ascites.
8. Chronic findings.
Plan:
Cont IV diuresis. Wt is over 20 lbs up from last admit. Dry weight 193 lbs 06/13/24. Wt 07/16/24 223 lbs.
Monitor Is and Os and daily wts
HF teaching
He has little insight into the gravity of his disease processess
Discussed fluid and sodium restriction and alcohol cessation.
NSVT on monitor, check and trend troponin, may consider limited repeat echo to eval EF pending troponin.
Dobutamine stress test 08/16: large inferior and basal inferior septal infarct without ischemia, EF 43%
Agree with vascular eval
Skin/wound care as per primary service
Would consider own room given hx of bedbugs
Smoking cessation is a must, with COPD needs pulm followup
Discussed with nursing.
Original Note:
Consultation
Consultation Request
Date/Time Consultation Requested: 07/16/2024, 2314
Date/Time Consultation Performed: 07/17/2024, 07 35
Requesting Provider: Dr Brittni Lopes
Performing Provider: JUAN Barber for Dr Olivarez
Reason for Consultation: heart failure
Medical History
-
Chief Complaint: Shortness of breath and significant weight gain
History of Present Illness:
Ross Nelson is a 73 year old male with chronic HFrEF, CAD s/p CABG and PCI, PAD s/p R femoral endarterectomy with saphenous vein angioplasty and R femoral to PT bypass 08/16, COPD, DM, HTN, hyperlipidemia, remote CVA who presented to [facility] emergency department on 07/16/2024 with increasing dyspnea on exertion, abdominal distention, LE edema, weight gain (weight up 27 pounds from discharge weight from previous admission for heart failure 06/13/2024, does not weigh himself at
home) and L heel pain, found to be in acute decompensated HF with reduced EF. BNP was 12,000, chest x-ray was clear. He was started on Lasix 40 mg IV twice daily. Weight is down to 4 pounds overnight.
He had a previous admission to 06/11/24-06/14/24 for acute heart failure exacerbation. An echocardiogram on 06/12/2024 showed an EF of 50%,, basal inferior wall hypokinesis, mildly dilated RV. There was no significant change compared to prior
echocardiogram from 08/16. He was discharged on Lasix and continued on his usual lisinopril, metoprolol tartrate, isosorbide. He was not considered a good candidate for an SGLT2 inhibitor given his history of PAD and osteomyelitis. His troponin
peaked at 0.073. He had no chest pain. There is consideration for outpatient ischemic evaluation.
The patient reports worsening LE edema and L heel pain over the past week. No PND, orthopnea, no fevers, chills, cough. Denies missing med doses.
Reports drinking two 20 oz coffees daily and 2 beers daily.
PMH:
heart failure mildly reduced EF
Poor medical compliance
CAD s/p remote CABG at [facility] and PCI at [place]
History of CVA 2010
PAD, right femoral endarterectomy with saphenous vein angioplasty and right femoral to PT bypass August 04, 2023, Dr. Riley
Osteomyelitis toe
COPD
HTN
HLD
DM2
Ongoing tobacco use
Past Medical History
Past Medical History: Other
Social History
Tobacco: Smoker
Alcohol: Occasional
Drug: None
Personal: Single
Living: With Family (nephew)
Employment: Retired
Family History
Family History: Reviewed & Not Pertinent
Allergies / Home Medications
Allergy/AdvReac Type Severity Reaction Status Date / Time
Sulfa (Sulfonamide Allergy hives,itchi Verified 07/16/24 08:45
Antibiotics) ng
�Medication �Instructions �Recorded �Confirmed �Type
isosorbide mononitrate 60 mg 60 mg PO DAILY Heart 02/26/11 07/16/24 History
tablet,extended release 24 hr Disease/Condition
aspirin 81 mg tablet,delayed 81 mg PO DAILY Blood Clot 07/25/23 07/16/24 History
release Prevention/Tx
clopidogrel 75 mg tablet (Plavix) 75 mg PO DAILY Blood Clot 07/25/23 07/16/24 History
Prevention/Tx
fluticasone fur. 100 mcg-umeclid 1 inh inhalation R DAILY@199907/25/23 07/16/24 History
62.5 mcg-vilant 25 mcg Lung/Breathing Issues
inhalat.powder (Trelegy Ellipta)
atorvastatin 80 mg tablet 80 mg PO HS High Cholesterol 07/26/23 07/16/24 History
albuterol sulfate 90 mcg/actuation 2 puff inhalation R QIDPRN PRN sob 07/16/24 07/16/24 History
aerosol inhaler
folic acid 1 mg tablet 1 mg PO DAILY Supplement 07/16/24 07/16/24 History
furosemide 40 mg tablet 40 mg PO DAILY Fluid 07/16/24 07/16/24 History
Retention/Swelling
lisinopril 40 mg tablet 40 mg PO DAILY Blood Pressure 07/16/24 07/16/24 History
metoprolol tartrate 50 mg tablet 50 mg PO BID Blood Pressure 07/16/24 07/16/24 History
Review of Systems
-
History Source: Patient
All other systems: Negative unless noted
Physical Exam
Vital Signs
Temp Pulse Resp BP Pulse Ox
97.7 F 71 18 110/69 96
07/17/24 03:20 07/17/24 03:20 07/17/24 03:20 07/17/24 03:20 07/17/24 03:20
Lab Results
Exj-J-Mgjasnrmayp Pept [id number] pg/ml 07/16/24 10:00
GEN: No distress, awake, Ox3
HEENT: supple, anicteric, mmm
LUNGS: scattered rhonchi throughout all lung patton, exp wheezing
CV: Reg, S1/S2, no murmur
ABD: + distended, BS+, nontender
EXT: +2 pitting edema B/L to thighs, LEs erythematous
NEURO: Gross non-focal
SKIN: warm, dry, LEs erythematous and flaky
Impression / Plan
-
Assessment:
Acute heart failure likely heart failure with mildly reduced ejection fraction
CAD s/p remote CABG at [facility] and PCI at [place]
History of CVA 2010
NSVT
PAD, right femoral endarterectomy with saphenous vein angioplasty and right femoral to PT bypass August 04, 2023, Dr. Riley
Poor medical compliance
Osteomyelitis toe
COPD
HTN
HLD
DM2
Ongoing tobacco use
h/o bedbugs 06/17 admission
Recent cardiac testing:
- Echo 06/12/2024: EF 50%, basal inferior wall hypokinetic on parasternal short axis views, RV mildly dilated, mildly dilated RA, no significant valvular disease noted
- Echocardiogram July 28, 2023 finds normal LV size and function with LVEF in the low normal range estimated at 51% with basal to mid inferior wall severe hypokinesis. No significant valvular disease.
- Dobutamine nuclear stress test July 29, 2023 finds large inferior and basal inferior septal infarct without stephanie-infarct ischemia. Baseline LVEF 43%
LE ABIs 07/16/24:
L KEREN 0.54
R KEREN 0.91
Left common femoral artery is occluded, as is the proximal and midportion of the left SFA.
Abd CTA 07/16/24
1. Patent right femoral to posterior tibial arterial bypass graft.
2. Chronic complete occlusion of the entire right superficial femoral artery with reconstitution at the level of the popliteal artery.
3. Chronic occlusion of the left superficial femoral artery at its origin with some reconstitution of flow at the level of the severely stenotic distal left SFA and popliteal artery.
4. Patent stent in the left common femoral artery/profunda femoris.
5. Severe aortobiiliac calcified atherosclerosis.
6. Infrarenal abdominal aortic aneurysm measuring 3.6 cm diameter.
7. Mild abdominopelvic ascites.
8. Chronic findings.
Recommendations:
1. decompensated HFmrEF:
-continue IV diuresis with Lasix 40 mg IV BID as weight >20 lbs over baseline dry weight from previous admission. Dry weight 193 lbs 06/13/24. Wt 07/16/24 223 lbs.
-renal function and electrolytes daily
-I/O, daily wts
-heart failure teaching
-Given history of PAD and osteomyelitis, not good candidate for SGLT2 inhibitor
2. 18 beat NSVT on telemetry
-adding on Magnesium level
-adding on troponin
-daily K and Mag
-consider ischemic eval with nuclear stress test if continued ventricular ectopy.
-cont Metoprolol 50 mg bid
3. h/o PAD with LE edema/erythema-
-vascular has been consulted
-consider treating for cellulitis - care per primary team
4. h/o CAD
-DAPT, high intensity statin, beta du,nitrate for h/o CAD
-no anginal symptoms but checking troponin in setting of NSVT
-EKG personally reviewed: NSR nonspecific T wave abnormality, no change compared to 06/11/24 EKGs
-smoking cessation
-Dobutamine stress test 08/16: large inferior and basal inferior septal infarct without ischemia, EF 43%
5. h/o COPD
-previously followed with pulmonary at [place] but hasn't been seen in years. Uses daily inhalers- trelegy and albuterol
-continue aggressive treatment
6. h/o bed bugs - move to private room
Data Reviewed
-
EKG: Tracing Personally Visualized and interpreted
Radiology: Report Reviewed by me
CT Scan: Report Reviewed by me
Medical Tests (Nuc Med, Echo etc): Report Reviewed by me
Labs: Labs Reviewed by me
[2024-07-17 07:30] VITALS: BP 121/61
[2024-07-17] MEDS: SYMBICORT 80/4.5 MCG INHALER 2 PUFF INH ×2 (07:57→20:15)
[2024-07-17] MEDS: SPIRIVA RESPIMAT 2.5 MCG 2 PUFF INH (07:57)
[2024-07-17 08:08] LABS: % Basophils 0.7 % (0-2); % Eosinophils 0.7 % (0-6); % Immature Granulocytes 0.6 % (0-0.5); % Lymphocytes 10.4 % (20.5-51.1); % Monocytes 8.6 % (1.7-9.3); Absolute Basophils 0.1 10^3/uL (0-0.2); Absolute Eosinophils 0.1 10^3/uL (0-0.7); Absolute Immature Granulocytes 0.1 10^3/uL (0-0.05); Absolute Lymphocytes 1.1 10^3/uL (1.2-3.4); Absolute Monocytes 0.9 10^3/uL (0.1-0.6); Absolute Neutrophils 8.3 10^3/uL (1.4-6.5); Hematocrit 52.6 % (39.0-52.0); Hemoglobin 15.5 g/dL (13.0-18.0); Mean Corp Hgb Conc. 29.5 g/dL (33.0-37.0); Mean Corpuscular Volume 88.3 fL (80.0-94.0); Mean Platelet Volume 9.9 fL (7.4-10.4); Nucleated Red Blood Cells % 0.3 % (-); Platelet Count 363 10^3/uL (130-400); Red Blood Cell Count 5.96 10^6/uL (4.70-6.10); Red Cell Dist. Width 18.7 % (11.5-14.5); White Blood Cell Count 10.5 10^3/uL (4.8-10.8)
--- NOTE | 2024-07-17 08:18 | CON.VAS ---
Consultation
Consultation Request
Performing Provider: JUAN Pitts
Reason for Consultation: Lower extremity skin itching
Medical History
-
Chief Complaint: Shortness of breath
History of Present Illness:
73-year-old male with with past medical history of DM, CAD (status post CABG), active smoker status post right FEA and femoral to PT artery bypass in July 2023. Presented to the ER overnight for CHF exacerbation. Patient was recently admitted
last month for the same diagnosis. At discharge patient was prescribed home oxygen therapy which he refused upon delivery. Patient is still smoking. He complains that his legs are peeling and itchy at this time. Vascular consult for difficulty
finding distal pulses.
Patient seen at bedside this a.m. He reports some itching to his bilateral lower extremities. His legs appear pink, +3 edema, very dry. Excellent doppler signals at bilateral PT and DP's. Bilateral feet warm, skin is intact. Patient educated to
not scratch legs, could introduce infection. Patient is having a hard time moving around due to his edema.
Vascular procedure history:
08/04/2023: Right femoral endarterectomy (common femoral artery, profunda femoris artery) with saphenous vein patch angioplasty and profundoplasty. Right femoral to posterior tibial artery bypass with ipsilateral non-reversed greater saphenous vein
conduit.
Past Medical History
Past Medical History: CAD, COPD, HTN, Hypercholesterolemia, NIDDM and Other (TIA, sleep apnea, hepatitis C)
Past Surgical History: Appendectomy, Cardiac (CABG, cardiac catheterization with PCI) and Tonsilectomy
Social History
Tobacco: Smoker
Alcohol: Occasional
Personal: Single
Family History
Family History: Reviewed & Not Pertinent
Allergies / Home Medications
Allergy/AdvReac Type Severity Reaction Status Date / Time
Sulfa (Sulfonamide Allergy hives,itchi Verified 07/16/24 08:45
Antibiotics) ng
�Medication �Instructions �Recorded �Confirmed �Type
isosorbide mononitrate 60 mg 60 mg PO DAILY Heart 02/26/11 07/16/24 History
tablet,extended release 24 hr Disease/Condition
aspirin 81 mg tablet,delayed 81 mg PO DAILY Blood Clot 07/25/23 07/16/24 History
release Prevention/Tx
clopidogrel 75 mg tablet (Plavix) 75 mg PO DAILY Blood Clot 07/25/23 07/16/24 History
Prevention/Tx
fluticasone fur. 100 mcg-umeclid 1 inh inhalation R DAILY@199907/25/23 07/16/24 History
62.5 mcg-vilant 25 mcg Lung/Breathing Issues
inhalat.powder (Trelegy Ellipta)
atorvastatin 80 mg tablet 80 mg PO HS High Cholesterol 07/26/23 07/16/24 History
albuterol sulfate 90 mcg/actuation 2 puff inhalation R QIDPRN PRN sob 07/16/24 07/16/24 History
aerosol inhaler
folic acid 1 mg tablet 1 mg PO DAILY Supplement 07/16/24 07/16/24 History
furosemide 40 mg tablet 40 mg PO DAILY Fluid 07/16/24 07/16/24 History
Retention/Swelling
lisinopril 40 mg tablet 40 mg PO DAILY Blood Pressure 07/16/24 07/16/24 History
metoprolol tartrate 50 mg tablet 50 mg PO BID Blood Pressure 07/16/24 07/16/24 History
Review of Systems
-
History Source: Patient
All other systems: Negative unless noted
Constitutional: Reports Fatigue
EENT: Reports No Symptoms
Respiratory: Reports Trouble Breathing
Cardiac: Reports No Symptoms
Vascular: Reports Leg Pain / Claudication
Abdomen/GI: Reports No Symptoms
: Reports No Symptoms
Musculoskeletal: Reports Edema
Skin: Reports Other (Dry)
Neurological: Reports No Symptoms
Endocrine: Reports No Symptoms
Physical Exam
Vital Signs
Temp Pulse Resp BP Pulse Ox
97.7 F 65 14 110/69 89
07/17/24 03:20 07/17/24 08:04 07/17/24 08:04 07/17/24 03:20 07/17/24 08:04
Lab Results
07/17/24 07:35
Iae-Y-Qzeqxkitgwf Pept 13282 pg/ml 07/16/24 10:00
Physical Exam
General: No Apparent Distress
HEENT: Normocephalic and Atraumatic
Respiratory: Non Labored Respirations
Cardiac: Negative JVD
GI: Soft and Non Tender
Musculoskeletal: No Clubbing, No Cyanosis and Edema (+3 bilateral lower extremities)
Skin: Warm, Dry and Other (Intact)
Neuro: Awake, Alert and Oriented
Psych: Calm
Pulses: Bilateral Dorsalis Pedis: Doppler and Bilateral Posterior Tibial: Doppler
Assessment / Plan
-
73-year-old male with extensive past medical history here for CHF exacerbation
Plan:
-CTA suggests patent right lower extremity bypass, patent left common/profunda stent, chronically occluded bilateral SFA (unchanged)-excellent doppler signals
-Patient appears volume overloaded, his skin itching to the lower extremities is likely due to to the stretch of the skin from his volume status. Skin is intact at this time, no wounds noted.
-Recommend smoking cessation, diuresis, adherence to diet/prescribed medications/O2
Data Reviewed
-
CT Scan: Discussed with Physician
Labs: Labs Reviewed by me
[2024-07-17] MEDS: PLAVIX 75 MG PO (08:41)
[2024-07-17] MEDS: LOPRESSOR 50 MG PO ×2 (08:41→21:56)
[2024-07-17] MEDS: NICODERM TRANSDERMAL 7 MG TRANSDERM ×2 (08:41→22:57)
[2024-07-17] MEDS: ZESTRIL 40 MG PO (08:41)
[2024-07-17] MEDS: HEPARIN 5000 UNITS SC ×2 (08:42→21:57)
[2024-07-17] MEDS: ASPIR LOW (ENTERIC COATED) 81 MG PO (08:42)
[2024-07-17] MEDS: FOLVITE 1 MG PO (08:42)
[2024-07-17] MEDS: LASIX 40 MG IV ×2 (08:42→16:51)
[2024-07-17] MEDS: DESENEX/MITRAZOL/ZEASORB 1 APPLIC TOPICAL ×2 (08:42→21:58)
[2024-07-17] MEDS: IMDUR (EXTENDED RELEASE) 60 MG PO (08:42)
[2024-07-17 09:04] LABS: ALT (SGPT) 21 U/L (0-50); AST (SGOT) 31 U/L (17-59); Albumin 3.8 g/dl (3.5-5.0); Alkaline Phosphatase 92 U/L (38-126); Blood Urea Nitrogen 21 mg/dl (9-20); Calcium 9.8 mg/dl (8.4-10.2); Carbon Dioxide 34 mmol/L (22-30); Chloride 94 mmol/L (98-107); Estimated Creatinine Clearance 87 ml/min; Glucose 117 mg/dl (70-99); Magnesium 1.8 mg/dl (1.6-2.3); Potassium 5.1 mmol/L (3.5-5.1); Sodium 140 mmol/L (135-145); Total Bilirubin 0.8 mg/dl (0.2-1.3); Total Protein 6.5 g/dl (6.3-8.2); eGFR > 60.00
--- NOTE | 2024-07-17 10:44 | CM ---
Addendum entered by Araceli Bustos 07/17/24 10:58:
Per patient, current address is [address], [place] [address].
Original Note:
Patient seen bedside.
IA completed.
Patient lives with nephew in a 1 floor apartment with 1 flight to enter.
Patient reports no difficulty with stairs.
Patient agreeable to home oxygen, [employer]. (had been ordered last admission and he refused on delivery)
Patient will require a home oxygen assessment.
patient is a smoker and stated he could go outside to smoke.
Patient reports no assistive devices.
Had [facility] in the past.
Patient agreeable to VN in the home. Referral to [facility] via [facility].
Patient can drive.
PCP:Dr Turner
Pharmacy: [facility]
Plan: home with probable Vn and Oxyegn needs.
[2024-07-17 10:49] LABS: Troponin I 0.106 ng/ml
[2024-07-17 11:30] VITALS: BP 101/54
--- NOTE | 2024-07-17 11:37 | VNURNOTE ---
Home Health Liaison met with patient at bedside to discuss [facility] nurse/therapy, visits, schedule and homebound status. Patient is agreeable and understands that visits at home will be 2-3 x per week to assess and teach medical management. Watch for
home 02 needs. Patient confirms he has a scale at home. [facility] brochure provided with contact information. Patient is aware that [facility] will contact them for start of care in 1-2 days after discharge from . [facility] referral completed in [facility].
--- NOTE | 2024-07-17 15:03 | WOUNDNOTE ---
L LATERAL LOWER LEG AND HEEL
--- NOTE | 2024-07-17 15:05 | WOUNDNOTE ---
ALEJANDRO RN note: Patient admitted with CHF.
See H&P for complete history.
PMH: CHF,HEP C, PVD,CAD, NIDDM, CABG, R femoral bypass 2022, cardiac stents,current smoker, obesity.
Wound Location and type/assessment: Patient admitted with: L leg cellulitis, lateral lower leg with old venous ulcer now dry and scabbed. L lateral heel fissure, skin very dry on both legs. R heel intact. Reviewed TECHNICAL INSTRUCTOR COURSE DEVELOPER Hong's note- stents are
patent, chronic occluded b/l SFA, + pp with Doppler, 3+ edema. Sacrum is intact.
Appetite: Good.
Pressure redistribution devices in place: Accumax, is ad carmel, legs elevated.
Plan: applied A&D ointment today, will order mineral oil to start tomorrow. Skin prep and adhesive foam to L heel. Recommend leg elevation, weight loss and smoking cessation.
Will confirm orders with hospitalist and update nurse.
Updated care plan and will follow as needed.
Note to case management of equipment requested for discharge: None.
Recommend follow up at wound care center upon discharge.
--- NOTE | 2024-07-17 15:23 | W.PN.UPDATE ---
Update Note
Progress Note Update
Seen and examined. Did not understand how heart failure could cause swelling and pain in his legs. This was explained to them. States worse left leg than right leg. Rest at the heel.
NAD, resting comfortably in bed
Scleral anicteric
Moist mucous membranes
HJR noted
Bibasilar cracklesl
Normal S1-S2 no murmurs
Soft nontender nondistended bowel sounds active
2+ pitting edema bilateral lower extremities, left lower extremity with some erythema when compared to right. Left foot heel tenderness over the setting area with noted black area. Unsure if this is necrotic tissue. Will have podiatry evaluate
Moves extremities spontaneously
AAOx3
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
-IV diuretics
-Daily weights
-Follow renal function
-Monitor urinary output
-Keep K greater than 4
-Keep magnesium greater than 2
-SGLT2 inhibitor
-Cardiology following
PAD being followed by vascular surgery Doppler pulses
CAD s/p CABG continue DAPT statin and beta-du isosorbide mononitrate
COPD continue MDIs, without evidence of acute bronchospasm, maintain SpO2 greater than 88%
Active smoker NRT
MARIJA noncompliant CPAP
[2024-07-17 15:30] VITALS: BP 125/62
--- NOTE | 2024-07-17 16:01 | W.PN.HOSP.TC ---
Addendum entered and electronically signed by Roman Tolbert MD 07/17/24 17:23:
Seen and examined. Did not understand how heart failure could cause swelling and pain in his legs. This was explained to them. States worse left leg than right leg. Rest at the heel.
NAD, resting comfortably in bed
Scleral anicteric
Moist mucous membranes
HJR noted
Bibasilar cracklesl
Normal S1-S2 no murmurs
Soft nontender nondistended bowel sounds active
2+ pitting edema bilateral lower extremities, left lower extremity with some erythema when compared to right. Left foot heel tenderness over the setting area with noted black area. Unsure if this is necrotic tissue. Will have podiatry evaluate
Moves extremities spontaneously
AAOx3
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
-IV diuretics
-Daily weights
-Follow renal function
-Monitor urinary output
-Keep K greater than 4
-Keep magnesium greater than 2
-SGLT2 inhibitor
-Cardiology following
PAD being followed by vascular surgery Doppler pulses
CAD s/p CABG continue DAPT statin and beta-du isosorbide mononitrate
COPD continue MDIs, without evidence of acute bronchospasm, maintain SpO2 greater than 88%
Active smoker NRT
MARIJA noncompliant CPAP
Original Note:
Today's Communication/Plan
-
Patient continues to appear to be volume overloaded. We will continue to diurese the patient in hopes of his edematous state reducing. Continue to follow renal function and ensure that potassium remains greater than 4 and magnesium remains greater
than 2. X-ray of the left heel ordered due to uncertain black maximo on posterior aspect of left heel. Wound consult and podiatry consulted as well in regards to the black maximo on the patient's heel.
Assessment / Plan
Assessment / Plan
HPI: Patient is a 73-year-old male with a past medical history of peripheral artery disease s/p right femoral bypass last year, hepatitis C, CAD s/p CABG, CHF, COPD, hypertension, diabetes, obstructive sleep apnea, hyperlipidemia who presented with
increased swelling of his left lower extremity for the past few weeks. He has had swelling of his left lower extremity with redness. He had marked pain of the left heel and a black marking/wound seen on the posterior aspect of his left heel. He
also reported soreness and cramping of the left calf with ambulation. He also reported that he was having increased shortness of breath with exertion. He has a chronic cough which was at baseline on his arrival. He has increased abdominal
distention and thinks that he gained a lot of weight although he did not weigh himself recently. He was recently admitted last month for CHF exacerbation. He smokes less than a half a pack of cigarettes a day and drinks beer occasionally.
-Acute on chronic HFmrEF exacerbation, NYHA class III-IV
Ejection fraction at 50% on echo from last month. Hypokinetic inferior wall
Cardiology consulted -continues to follow
Continue IV diuretics as the patient appears to be volume overloaded resulting in excessive stretching of his skin -patient's weight is over 20 pounds increased when compared to his last admission. Dry weight was 193 pounds on 06/13/2024. Weight
on 07/16/2024 was 223 pounds.
Check and I's and O's with daily weights
Most recent chest x-ray had no pertinent findings
Cardiac BNP at 12,000 on admission
Troponin 0.106 on admission, continue to trend until it starts to go downwards
Monitor BUN and creatinine
Keep potassium >4
Keep magnesium >2
Due to the patient's past history of peripheral artery disease and osteomyelitis, the patient is not a good candidate for an SGLT2 inhibitor
-Chronic ischemia of the left lower extremity
-Left heel pain with noted black area
-Peripheral artery disease s/p right femoral bypass
Wound care consult ordered
X-ray of left heel ordered
Continue statin and beta-du with isosorbide mononitrate
Podiatry consult appreciated. By their assessment they believe the patient is appropriate to be followed in the outpatient setting.
Prior bilateral arterial study conducted on 06/13/2024 showed left common femoral artery occlusion, profunda femoris artery was patent, heavily calcified plaque within the left popliteal artery, and low velocity flow measuring 13 cm/s.
Infrapopliteal disease may also have been present.
-History of COPD:
Patient used to be followed by pulmonology at [facility] but he has not been seen in many years.
He continues to use Trelegy and albuterol
Continue current treatment
- Obstructive sleep apnea:
Patient noncompliant with CPAP
-Nicotine dependence:
Patient is an active smoker, but he admits to greatly reducing the amount he smokes over the years
-History of bedbugs:
No tracking bite abreu noted
Moved to private room to ensure therapeutic milieu for all
DVT prophylaxis: Heparin subcu
DNR status
Anticipated Discharge: 24 - 48 hours
Subjective/Interval History
-
Date of Service: July 17, 2024
Met with patient at the bedside. He continues to complain of left leg swelling, itchiness, heel pain, and a difficulty in putting pressure on his heel. Patient does not understand why his leg swelling has anything to do with his heart and he is
hoping that the designer writer can call his daughter and explain his ongoing condition. He offers no other complaints aside from his lower limb discomfort.
Objective Data
-
Labs:
Laboratory Results
07/17/24
07:35
WBC 10.5
Hgb 15.5
Hct 52.6 H
Plt Count 363
Sodium 140
Potassium 5.1
Chloride 94 L
Carbon Dioxide 34 H
BUN 21 H
Creatinine 0.9
Glucose 117 H
Calcium 9.8
Total Bilirubin 0.8
AST 31
ALT 21
Alkaline Phosphatase 92
Vital Signs:
Vital Signs
Temp Pulse Resp BP Pulse Ox
97.6 F 77 18 101/54 95
07/17/24 11:30 07/17/24 11:30 07/17/24 11:30 07/17/24 11:30 07/17/24 11:35
I&O
07/16/24 07/17/24 07/18/24
06:59 06:59 06:59
Intake Total 360 / 360
Output Total 1725 / 1725 1950 / 1950
Balance -1725 / -1725 -1590 / -1590
Review of Systems
-
History Source: Patient
Constitutional: Reports Other (Bilateral lower limb itchiness)
EENT: Reports No Symptoms Reported
Respiratory: Reports No Symptoms
Cardiac: Reports No Symptoms
Abdomen/GI: Reports No Symptoms
Breast: Reports No Symptoms
Genitourinary: Reports No Symptoms
Musculoskeletal: Reports Edema (Swelling and itchiness bilaterally) and Other
Skin: Reports Itching and Other
Neuro: Reports No Symptoms
Endocrine: Reports No Symptoms
Hematologic / Lymphatic: Reports No Symptoms
Allergy / Immunology: Reports No Symptoms
Physical Exam
-
General: Well Developed, Well Nourished and No Apparent Distress
HEENT: Normocephalic, Atraumatic and Moist Mucous Membranes
Respiratory: Decreased Breath Sounds (Decreased breath sounds at the bases bilaterally)
Cardiac: Regular Rhythm and S1/S2
GI: Soft, Nontender, Nondistended and Normal Bowel Sounds
Musculoskeletal: Edema, Right Lower Extrem, Edema, Left Lower Extrem and Other (Bilateral 2+ pitting edema, Left lower extremity has marginally more erythema when compared to the right side, marked left heel tenderness with a black marking/wound on
the posterior aspect of the heel.)
Skin: Other (marked left heel tenderness with a black marking/wound on the posterior aspect of the heel, yellowish dry and flaky skin bilaterally, serous fluid expressed during palpation)
Neuro: Awake, Alert, Oriented and AO x 3
Psych: Calm
[2024-07-17 17:43] LABS: Troponin I 0.093 ng/ml
[2024-07-17 19:30] VITALS: BP 116/62
[2024-07-17 20:31] LABS: Hepatitis C Antibody Reactive (Negative)
[2024-07-17 21:46] LABS: Troponin I 0.098 ng/ml
[2024-07-17] MEDS: LIPITOR 80 MG PO (21:56)
[2024-07-17 23:47] VITALS: BP 121/74
[2024-07-18] MEDS: ProAIR HFA INHALER 2 PUFF INH (01:37)
[2024-07-18 03:42] VITALS: BP 110/72
[2024-07-18 06:00] VITALS: BMI 31.5
[2024-07-18 07:00] VITALS: BP 148/83
[2024-07-18 07:16] LABS: Hematocrit 48.9 % (39.0-52.0); Hemoglobin 14.4 g/dL (13.0-18.0); Mean Corp Hgb Conc. 29.4 g/dL (33.0-37.0); Mean Corpuscular Hgb 26.9 pg (27.0-31.0); Mean Corpuscular Volume 91.2 fL (80.0-94.0); Mean Platelet Volume 9.8 fL (7.4-10.4); Platelet Count 319 10^3/uL (130-400); Red Blood Cell Count 5.36 10^6/uL (4.70-6.10); Red Cell Dist. Width 18.1 % (11.5-14.5); White Blood Cell Count 10.2 10^3/uL (4.8-10.8)
[2024-07-18] MEDS: SPIRIVA RESPIMAT 2.5 MCG 2 PUFF INH (07:18)
[2024-07-18] MEDS: SYMBICORT 80/4.5 MCG INHALER 2 PUFF INH ×2 (07:18→20:09)
--- NOTE | 2024-07-18 07:40 | W.PN.HOSP.TC ---
Addendum entered and electronically signed by Roman Tolbert MD 07/18/24 13:44:
Seen and examined. Did not understand how heart failure could cause swelling and pain in his legs. This was explained to them. States worse left leg than right leg. Rest at the heel.
NAD, resting comfortably in bed
Scleral anicteric
Moist mucous membranes
HJR noted
Bibasilar cracklesl
Normal S1-S2 no murmurs
Soft nontender nondistended bowel sounds active
2+ pitting edema bilateral lower extremities, both lower extremity with some erythema when compared to right. Left foot heel tenderness over the setting area with noted black area. Unsure if this is necrotic tissue. Will have podiatry evaluate
Moves extremities spontaneously
AAOx3
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
-IV diuretics
-Daily weights
-Follow renal function
-Monitor urinary output
-Keep K greater than 4
-Keep magnesium greater than 2
-SGLT2 inhibitor unable to provide due to PAD
-Cardiology following
Low clinical suspicion for cellulitis, strange to be in both LE, also, without white count and afebrile. SUspect this is from HF. WIll continue to monitor.
PAD being followed by vascular surgery Doppler pulses
CAD s/p CABG continue DAPT statin and beta-du isosorbide mononitrate
COPD continue MDIs, without evidence of acute bronchospasm, maintain SpO2 greater than 88%
Active smoker NRT
MARIJA noncompliant CPAP
Original Note:
Today's Communication/Plan
-
Continue diuresis as the patient remains volume overloaded. Will discontinue diuretics as patient approaches euvolemia. Continue to monitor I's and O's. Repleted magnesium as it was 1.6 this morning.
Assessment / Plan
Assessment / Plan
HPI: Patient is a 73-year-old male with a past medical history of peripheral artery disease s/p right femoral bypass last year, hepatitis C, CAD s/p CABG, CHF, COPD, hypertension, diabetes, obstructive sleep apnea, hyperlipidemia who presented with
increased swelling of his left lower extremity for the past few weeks. He has had swelling of his left lower extremity with redness. He had marked pain of the left heel and a black marking/wound seen on the posterior aspect of his left heel. He
also reported soreness and cramping of the left calf with ambulation. He also reported that he was having increased shortness of breath with exertion. He has a chronic cough which was at baseline on his arrival. He has increased abdominal
distention and thinks that he gained a lot of weight although he did not weigh himself recently. He was recently admitted last month for CHF exacerbation. He smokes less than a half a pack of cigarettes a day and drinks beer occasionally.
Assessment/Plan:
-Acute on chronic HFmrEF exacerbation, NYHA class III-IV
Ejection fraction at 50% on echo from last month. Hypokinetic inferior wall
Cardiology consulted -continues to follow
Continue IV diuretics as the patient appears to be volume overloaded resulting in excessive stretching of his skin -patient's weight is over 20 pounds increased when compared to his last admission. Dry weight was 193 pounds on 06/13/2024. Weight
on 07/16/2024 was 223 pounds. Weight on 07/18/2024 is 213.25 pounds
May consider switching to acetazolamide if serum bicarbonate exceeds 40-42 for additional diuresis.
Check and I's and O's with daily weights
Most recent chest x-ray had no pertinent findings
Cardiac BNP at 12,000 on admission
Troponin 0.106 on admission -troponins currently at 0.090 trending downwards on 07/18/2024
Monitor BUN and creatinine
Keep potassium >4
Keep magnesium >2, magnesium found to be 1.6 on 07/18/2024 -repleted
Due to the patient's past history of peripheral artery disease and osteomyelitis, the patient is not a good candidate for an SGLT2 inhibitor
-Chronic ischemia of the left lower extremity
-Left heel pain with noted black area
-Peripheral artery disease s/p right femoral bypass
Wound care consult ordered
X-ray of left heel ordered
Continue statin and beta-du with isosorbide mononitrate
Podiatry consult appreciated. By their assessment they believe the patient is appropriate to be followed in the outpatient setting.
Prior bilateral arterial study conducted on 06/13/2024 showed left common femoral artery occlusion, profunda femoris artery was patent, heavily calcified plaque within the left popliteal artery, and low velocity flow measuring 13 cm/s.
Infrapopliteal disease may also have been present.
-History of COPD:
Patient used to be followed by pulmonology at [facility] but he has not been seen in many years.
He continues to use Trelegy and albuterol
Continue current treatment
- Obstructive sleep apnea:
Patient noncompliant with CPAP
-Nicotine dependence:
Patient is an active smoker, but he admits to greatly reducing the amount he smokes over the years
-History of bedbugs:
No tracking bite abreu noted
Moved to private room to ensure therapeutic milieu for all
DVT prophylaxis: Heparin subcu
DNR status
Data:
- Chest x-ray conducted on 07/16/2024:
The lungs appear clear. Cardiac silhouette size is top normal with no evidence for pulmonary edema or pleural effusion.
- Abdominal CT conducted on 07/16/2024:
1. Patent right femoral to posterior tibial arterial bypass graft.
2. Chronic complete occlusion of the entire right superficial femoral artery with reconstitution at the level of the popliteal artery.
3. Chronic occlusion of the left superficial femoral artery at its origin with some reconstitution of flow at the level of the severely stenotic distal left SFA and popliteal artery.
4. Patent stent in the left common femoral artery/profunda femoris.
5. Severe aortobiiliac calcified atherosclerosis.
6. Infrarenal abdominal aortic aneurysm measuring 3.6 cm diameter.
7. Mild abdominopelvic ascites.
8. Chronic findings, as detailed above.
-Left heel x-ray conducted on 07/17/2024:
No plain film evidence of osteomyelitis. Small calcaneal osteophytes.
Anticipated Discharge: 24 - 48 hours
Subjective/Interval History
-
Date of Service: July 18, 2024
Met with patient at the bedside. He continues to complain of left heel pain and left leg itchiness. He states that it is marginally improved compared to yesterday.
Objective Data
-
Labs:
Laboratory Results
07/18/24
06:24
WBC 10.2
Hgb 14.4
Hct 48.9
Plt Count 319
Sodium Pending
Potassium Pending
Chloride Pending
Carbon Dioxide Pending
BUN Pending
Creatinine Pending
Glucose Pending
Calcium Pending
Total Bilirubin Pending
AST Pending
ALT Pending
Alkaline Phosphatase Pending
Vital Signs:
Vital Signs
Temp Pulse Resp BP Pulse Ox
98.1 F 77 14 110/72 95
07/18/24 03:42 07/18/24 07:23 07/18/24 07:23 07/18/24 03:42 07/18/24 07:23
I&O
07/17/24 07/18/24 07/19/24
06:59 06:59 06:59
Intake Total 1540 / 1540
Output Total 1725 / 1725 3850 / 3850
Balance -1725 / -1725 -2310 / -2310
Review of Systems
-
History Source: Patient
Constitutional: Reports No Symptoms
EENT: Reports No Symptoms Reported
Respiratory: Reports No Symptoms
Cardiac: Reports No Symptoms
Abdomen/GI: Reports No Symptoms
Breast: Reports No Symptoms
Genitourinary: Reports No Symptoms
Musculoskeletal: Reports No Symptoms
Skin: Reports Itching
Neuro: Reports No Symptoms
Endocrine: Reports No Symptoms
Hematologic / Lymphatic: Reports No Symptoms
Allergy / Immunology: Reports No Symptoms
Physical Exam
-
General: Well Developed, Well Nourished and No Apparent Distress
HEENT: Normocephalic, Atraumatic and Moist Mucous Membranes
Respiratory: Decreased Breath Sounds (Decreased breath sounds at the bases bilaterally)
Cardiac: Regular Rhythm and S1/S2
GI: Soft, Nontender and Nondistended
Rectal: Deferred by Provider
Genito-urinary: Deferred by me
Musculoskeletal: Edema, Right Lower Extrem and Edema, Left Lower Extrem
Skin: Other (marked left heel tenderness with a black marking/wound on the posterior aspect of the heel, yellowish dry and flaky skin bilaterally, serous fluid expressed during palpation on left leg)
Neuro: Awake, Alert, Oriented and AO x 3
Psych: Calm
[2024-07-18 07:43] LABS: ALT (SGPT) 20 U/L (0-50); AST (SGOT) 31 U/L (17-59); Albumin 3.3 g/dl (3.5-5.0); Alkaline Phosphatase 89 U/L (38-126); Blood Urea Nitrogen 19 mg/dl (9-20); Chloride 91 mmol/L (98-107); Estimated Creatinine Clearance 97 ml/min; Glucose 125 mg/dl (70-99); Magnesium 1.6 mg/dl (1.6-2.3); Potassium 4.3 mmol/L (3.5-5.1); Sodium 141 mmol/L (135-145); Total Bilirubin 0.7 mg/dl (0.2-1.3); Total Protein 5.8 g/dl (6.3-8.2); eGFR > 60.00
[2024-07-18] MEDS: HEPARIN 5000 UNITS SC ×2 (07:52→20:53)
[2024-07-18] MEDS: FOLVITE 1 MG PO (07:52)
[2024-07-18] MEDS: LOPRESSOR 50 MG PO ×2 (07:52→20:54)
[2024-07-18] MEDS: ASPIR LOW (ENTERIC COATED) 81 MG PO (07:52)
[2024-07-18] MEDS: PLAVIX 75 MG PO (07:52)
[2024-07-18] MEDS: LASIX 40 MG IV ×2 (07:52→16:36)
[2024-07-18] MEDS: ZESTRIL 40 MG PO (07:52)
[2024-07-18] MEDS: IMDUR (EXTENDED RELEASE) 60 MG PO (07:52)
[2024-07-18] MEDS: NICODERM TRANSDERMAL 7 MG TRANSDERM (07:53)
[2024-07-18] MEDS: HYDROPHOR 1 APPLIC TOPICAL (07:53)
[2024-07-18] MEDS: DESENEX/MITRAZOL/ZEASORB 1 APPLIC TOPICAL ×2 (07:54→20:53)
[2024-07-18 08:10] LABS: Carbon Dioxide 36 mmol/L (22-30)
[2024-07-18] MEDS: MAGONATE 86 MG PO (08:12)
[2024-07-18 11:00] VITALS: BP 120/60
--- NOTE | 2024-07-18 12:09 | W.PN.CARDCBS ---
Addendum entered and electronically signed by Mariel Lucas PA-C 07/18/24 15:11:
called and discussed with patient's daughter, Patricia via telephone for 9:09.
Addendum entered and electronically signed by Shadi Riggs MD 07/18/24 13:18:
I saw and examined the patient.
The BLACKSMITH HAMMER OPERATOR or PA's note was reviewed and I agree with the note.
Comment: General: Well developed, well nourished in NAD.
Neck: Supple, no JVD, HJR, carotids +2 B/L, no bruits bilaterally.
Heart: Non displaced PMI, RRR, no murmurs, No S3, S4, no rubs.
Lungs: Scattered rhonchi
Extremities: Severe edema with erythema over lower extremities bilaterally
Neuro: Grossly nonfocal, awake, alert and oriented x3.
He continues with CHF. Will continue IV Lasix. Eventually transition Lopressor to Toprol. May need antibiotics for possible cellulitis of lower extremities.
Original Note:
Today's Communication / Plan
-
continue IV lasix
wean supp O2
CHF education
consider transition lopressor to toprol
Impression / Plan
-
Assessment:
Acute heart failure likely heart failure with mildly reduced ejection fraction
CAD s/p remote CABG at [facility] and PCI at [place]
History of CVA 2010
NSVT
PAD, right femoral endarterectomy with saphenous vein angioplasty and right femoral to PT bypass August 04, 2023, Dr. Riley
Poor medical compliance
Osteomyelitis toe
COPD
HTN
HLD
DM2
Ongoing tobacco use
h/o bedbugs 06/17 admission
Recent cardiac testing:
- Echo 06/12/2024: EF 50%, basal inferior wall hypokinetic on parasternal short axis views, RV mildly dilated, mildly dilated RA, no significant valvular disease noted
- Echocardiogram July 28, 2023 finds normal LV size and function with LVEF in the low normal range estimated at 51% with basal to mid inferior wall severe hypokinesis. No significant valvular disease.
- Dobutamine nuclear stress test July 29, 2023 finds large inferior and basal inferior septal infarct without stephanie-infarct ischemia. Baseline LVEF 43%
Recommendations:
-He presented with 25 pound weight gain and evidence of acute on chronic heart failure
-Continue IV Lasix diuresis. Creatinine stable. Dry weight last admission 193 pounds
-Wean supplemental oxygen as able
-CHF education. Discussed 48 ounce fluid restriction and 2 g sodium restriction with patient today
-Will consider transition from Lopressor to Toprol given low normal EF. Continue lisinopril, Imdur.
-Not felt to be candidate for SGLT2 inhibitor given history of PAD and osteomyelitis
-No further VT noted on telemetry overnight, in SR with PVCs
-continue LE wound care. vascular following. consider for treatment of cellulitis.
-recent echo 05/2024 with results as above
-trops flat at 0.09 range, suspected nonischemic myocardial injury. no CP. consider eventual ischemic evaluation - last was dobutamine stress test 08/16: large inferior and basal inferior septal infarct without ischemia, EF 43%. continue asa,
plavix, statin
-smoking cessation
-consider moving to private room given history of bed bugs
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
Subjective
Date of Service: July 18, 2024
denies SOB, CP.
Objective
Labs:
07/18/24 06:24
07/18/24 06:24
Labs
Hgb 14.4 g/dL (13.0-18.0) 07/18/24 06:24
Hct 48.9 % (39.0-52.0) 07/18/24 06:24
Plt Count 319 10^3/uL (130-400) 07/18/24 06:24
Sodium 141 mmol/L (135-145) 07/18/24 06:24
Potassium 4.3 mmol/L (3.5-5.1) 07/18/24 06:24
BUN 19 mg/dl (9-20) 07/18/24 06:24
Creatinine 0.8 mg/dL (0.7-1.3) 07/18/24 06:24
Glucose 125 mg/dl (70-99) H 07/18/24 06:24
Troponins
07/17/24 07/17/24 07/17/24
09:42 10:09 16:59
Troponin I Cancelled 0.106 H* 0.093 H*
07/17/24 07/18/24
20:56 06:24
Troponin I 0.098 H* 0.090 H*
Vital Signs and I&O:
Vital Signs
Temp Pulse Resp BP Pulse Ox
98.2 F 71 18 120/60 96
07/18/24 11:00 07/18/24 11:00 07/18/24 11:00 07/18/24 11:00 07/18/24 11:00
Vital Signs
Temp Pulse Resp BP Pulse Ox
98.2 F 71 18 120/60 96
07/18/24 11:00 07/18/24 11:00 07/18/24 11:00 07/18/24 11:00 07/18/24 11:00
Intake & Output
07/16/24 07/17/24 07/18/24 07/19/24
07:59 07:59 07:59 07:59
Intake Total 360 / 360 1180 / 1180
Output Total 3675 / 3675 1900 / 1900
Balance -3315 / -3315 -720 / -720
Physical Exam
Physical Exam
GEN: No distress, awake, alert, oriented x3. on supp O2
HEENT: supple, anicteric, mmm, eomi
LUNGS: no audible wheezes
CV: Reg rhythm on tele
ABD: distended
EXT: No cyanosis, clubbing. 4+ edema of B/L LE with erythema B/L
NEURO: Gross non-focal
SKIN: Warm, pink, dry. No rash
[2024-07-18 15:00] VITALS: BP 115/63
--- NOTE | 2024-07-18 15:12 | CM ---
Patient seen bedside.
Patient continues with LE redness and swelling.
Patient will need home oxygen assessment prior to d/c.
PLan home with [facility] and home oxygen.
[2024-07-18 19:22] VITALS: BP 138/72
[2024-07-18] MEDS: LIPITOR 80 MG PO (20:54)
[2024-07-18 23:04] VITALS: BP 138/71
[2024-07-19] VITALS (7 sets, daily range): BP systolic 115–144; BP diastolic 58–79; BMI 31.7
--- NOTE | 2024-07-19 01:30 | PTCARENOTE ---
Pt tele alarming tachy. Pt rhythm Atrial Flutter, which is new. Pt appears comfortable, no chest pain. [facility] Del [facility]en [facility] notified. EKG done, labs drawn. Will continue with current plan.
[2024-07-19 02:00] LABS: Hematocrit 46.8 % (39.0-52.0); Mean Corp Hgb Conc. 29.9 g/dL (33.0-37.0); Mean Corpuscular Hgb 26.4 pg (27.0-31.0); Mean Corpuscular Volume 88.1 fL (80.0-94.0); Mean Platelet Volume 9.3 fL (7.4-10.4); Platelet Count 295 10^3/uL (130-400); Red Blood Cell Count 5.31 10^6/uL (4.70-6.10); Red Cell Dist. Width 17.6 % (11.5-14.5); White Blood Cell Count 10.4 10^3/uL (4.8-10.8)
[2024-07-19 02:13] LABS: Blood Urea Nitrogen 17 mg/dl (9-20); Calcium 8.8 mg/dl (8.4-10.2); Chloride 88 mmol/L (98-107); Estimated Creatinine Clearance 111 ml/min; Glucose 123 mg/dl (70-99); Magnesium 1.6 mg/dl (1.6-2.3); Potassium 4.2 mmol/L (3.5-5.1); Sodium 140 mmol/L (135-145); eGFR > 60.00
[2024-07-19 02:34] LABS: Carbon Dioxide 41 mmol/L (22-30)
[2024-07-19] MEDS: MAGNESIUM SULFATE 102 GRAMS IV (03:18)
--- NOTE | 2024-07-19 05:12 | W.PN.UPDATE ---
Update Note
Progress Note Update
RN notified FINISHED CARPET INSPECTOR, noted rhythm change, EKG advised, EKG Aflutter with variable AV block. labs ordered K 4.2, Troponin 0.080, Mag 1.5, mag rider 2g IV order. Advise to give AM cardiac meds early. Patient is not in any apparent distress.
Repeat EKG AM
--- NOTE | 2024-07-19 07:06 | W.PN.HOSP.TC ---
Addendum entered and electronically signed by Roman Tolbert MD 07/19/24 15:01:
Seen and examined. Did not understand how heart failure could cause swelling and pain in his legs. This was explained to them. States worse left leg than right leg. Rest at the heel.
NAD, resting comfortably in bed
Scleral anicteric
Moist mucous membranes
HJR noted
Bibasilar cracklesl
Normal S1-S2 no murmurs
Soft nontender nondistended bowel sounds active
2+ pitting edema bilateral lower extremities, both lower extremity with some erythema when compared to right. Left foot heel tenderness over the setting area with noted black area. Unsure if this is necrotic tissue. Will have podiatry evaluate
Moves extremities spontaneously
AAOx3
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
-IV diuretics, increase dose 80mg BID, if poor output then will trial bumex followed by metalozone
-Daily weights
-Follow renal function
-Monitor urinary output
-Keep K greater than 4
-Keep magnesium greater than 2
-SGLT2 inhibitor unable to provide due to PAD
-Cardiology following
Low clinical suspicion for cellulitis, strange to be in both LE, also, without white count and afebrile. SUspect this is from HF. WIll continue to monitor.
PAD being followed by vascular surgery Doppler pulses
CAD s/p CABG continue DAPT statin and beta-du isosorbide mononitrate
COPD continue MDIs, without evidence of acute bronchospasm, maintain SpO2 greater than 88%
Active smoker NRT
MARIJA noncompliant CPAP
Original Note:
Today's Communication/Plan
-
IV Lasix increased to 80 mg twice daily. Continue to try to wean oxygen as able. CHF education with education on the importance of fluid restriction. Continue lower extremity wound care. Continue to follow I's and O's.
Assessment / Plan
Assessment / Plan
HPI: Patient is a 73-year-old male with a past medical history of peripheral artery disease s/p right femoral bypass last year, hepatitis C, CAD s/p CABG, CHF, COPD, hypertension, diabetes, obstructive sleep apnea, hyperlipidemia who presented with
increased swelling of his left lower extremity for the past few weeks. He has had swelling of his left lower extremity with redness. He had marked pain of the left heel and a black marking/wound seen on the posterior aspect of his left heel. He
also reported soreness and cramping of the left calf with ambulation. He also reported that he was having increased shortness of breath with exertion. He has a chronic cough which was at baseline on his arrival. He has increased abdominal
distention and thinks that he gained a lot of weight although he did not weigh himself recently. He was recently admitted last month for CHF exacerbation. He smokes less than a half a pack of cigarettes a day and drinks beer occasionally.
Assessment/Plan:
-Acute on chronic HFmrEF exacerbation, NYHA class III-IV, [id number] score of 8
Ejection fraction at 50% on echo from last month. Hypokinetic inferior wall
Cardiology consulted -continues to follow
IV Lasix increased to mid 80 mg twice daily as the patient appears to be volume overloaded -patient's weight is over 20 pounds increased when compared to his last admission. Dry weight was 193 pounds on 06/13/2024. Weight on 07/16/2024 was 223
pounds. Weight on 07/18/2024 is 213.25 pounds. Weight on 07/19/2024 is 214.19 pounds.
May consider switching to acetazolamide if serum bicarbonate exceeds 40-42 for additional diuresis.
Check and I's and O's with daily weights
Most recent chest x-ray had no pertinent findings
Cardiac BNP at 12,000 on admission
Troponin 0.106 on admission -troponins currently at 0.090 trending downwards on 07/18/2024 - stable
Monitor BUN and creatinine
Keep potassium >4
Keep magnesium >2, magnesium found to be 1.6 on 07/18/2024 -repleted -given another additional IV dose of magnesium
Due to the patient's past history of peripheral artery disease and osteomyelitis, the patient is not a good candidate for an SGLT2 inhibitor
On 5 AM of 07/19/2024 the patient was noted to have a rhythm change -an EKG was conducted showing atrial flutter with variable AV block. Repeat EKG in the morning showed that the patient converted back to sinus rhythm.
Cardiology has transitioned from Lopressor to Toprol at a higher dose given PAF/NSVT
Eliquis 5 mg twice daily started and aspirin discontinued. Lovenox continued.
Tubigrip or Mayur wrap for compression of legs to assist pushing fluid back into the intravascular space for diuresis
Recommend outpatient follow-up for chronic limb ischemia after discharge.
-Chronic ischemia of the left lower extremity
-Left heel pain with noted black area
-Peripheral artery disease s/p right femoral bypass
Wound care consult ordered
X-ray of left heel ordered
Continue statin and beta-du with isosorbide mononitrate
Podiatry consult appreciated. By their assessment they believe the patient is appropriate to be followed in the outpatient setting.
Prior bilateral arterial study conducted on 06/13/2024 showed left common femoral artery occlusion, profunda femoris artery was patent, heavily calcified plaque within the left popliteal artery, and low velocity flow measuring 13 cm/s.
Infrapopliteal disease may also have been present.
-History of COPD:
Patient used to be followed by pulmonology at [facility] but he has not been seen in many years.
He continues to use Trelegy and albuterol
Continue current treatment
Patient currently saturating at 93% on 4 L of oxygen
- Obstructive sleep apnea:
Patient noncompliant with CPAP
-Nicotine dependence:
Patient is an active smoker, but he admits to greatly reducing the amount he smokes over the years
-History of bedbugs:
No tracking bite abreu noted
Considering moving to private room to ensure therapeutic milieu for all
DVT prophylaxis: Eliquis
DNR status
Data:
- Chest x-ray conducted on 07/16/2024:
The lungs appear clear. Cardiac silhouette size is top normal with no evidence for pulmonary edema or pleural effusion.
- Abdominal CT conducted on 07/16/2024:
1. Patent right femoral to posterior tibial arterial bypass graft.
2. Chronic complete occlusion of the entire right superficial femoral artery with reconstitution at the level of the popliteal artery.
3. Chronic occlusion of the left superficial femoral artery at its origin with some reconstitution of flow at the level of the severely stenotic distal left SFA and popliteal artery.
4. Patent stent in the left common femoral artery/profunda femoris.
5. Severe aortobiiliac calcified atherosclerosis.
6. Infrarenal abdominal aortic aneurysm measuring 3.6 cm diameter.
7. Mild abdominopelvic ascites.
8. Chronic findings, as detailed above.
-Left heel x-ray conducted on 07/17/2024:
No plain film evidence of osteomyelitis. Small calcaneal osteophytes.
Anticipated Discharge: > 48 hours
Subjective/Interval History
-
Date of Service: July 19, 2024
Met with patient at the bedside. He states that the swelling has slightly improved but still complains about left heel pain. He hopes that the remainder of the fluid in his legs will be able to be reduced.
Objective Data
-
Labs:
Laboratory Results
07/19/24 07/19/24 07/19/24
01:49 01:50 06:00
WBC 10.4 Pending
Hgb 14.0 Pending
Hct 46.8 Pending
Plt Count 295 Pending
Sodium 140 Pending
Potassium 4.2 Pending
Chloride 88 L Pending
Carbon Dioxide 41 H Pending
BUN 17 Pending
Creatinine 0.7 Pending
Glucose 123 H Pending
Calcium 8.8 Pending
Vital Signs:
Vital Signs
Temp Pulse Resp BP Pulse Ox
98.7 F 80 16 144/77 97
07/19/24 03:12 07/19/24 03:12 07/19/24 03:12 07/19/24 03:12 07/19/24 03:12
I&O
07/18/24 07/19/24 07/20/24
06:59 06:59 06:59
Intake Total 1540 / 1540 1302 / 1302
Output Total 3850 / 3850 1400 / 1400
Balance -2310 / -2310 -98 / -98
Review of Systems
-
History Source: Patient
Constitutional: Reports No Symptoms
EENT: Reports No Symptoms Reported
Respiratory: Reports No Symptoms
Cardiac: Reports No Symptoms
Abdomen/GI: Reports No Symptoms
Breast: Reports No Symptoms
Genitourinary: Reports No Symptoms
Musculoskeletal: Reports Other (Left leg pain)
Skin: Reports Itching
Neuro: Reports No Symptoms
Endocrine: Reports No Symptoms
Hematologic / Lymphatic: Reports No Symptoms
Physical Exam
-
General: Well Developed, Well Nourished and No Apparent Distress
HEENT: Normocephalic, Atraumatic and Moist Mucous Membranes
Respiratory: Decreased Breath Sounds (Diminished breath sounds bilaterally at the bases)
Cardiac: Regular Rhythm and S1/S2
Breast: Deferred by me
GI: Soft, Nontender and Nondistended
Musculoskeletal: No Clubbing, No Cyanosis and No Edema
Skin: Warm and Dry
Neuro: Awake, Alert, Oriented and AO x 3
[2024-07-19] MEDS: ASPIR LOW (ENTERIC COATED) 81 MG PO (07:58)
[2024-07-19] MEDS: FOLVITE 1 MG PO (07:58)
[2024-07-19] MEDS: PLAVIX 75 MG PO (07:59)
[2024-07-19] MEDS: IMDUR (EXTENDED RELEASE) 60 MG PO (07:59)
[2024-07-19] MEDS: HEPARIN 5000 UNITS SC (07:59)
[2024-07-19] MEDS: DESENEX/MITRAZOL/ZEASORB 1 APPLIC TOPICAL ×2 (07:59→19:36)
[2024-07-19] MEDS: HYDROPHOR 1 APPLIC TOPICAL (08:00)
[2024-07-19 08:11] LABS: Hematocrit 47.8 % (39.0-52.0); Mean Corp Hgb Conc. 29.3 g/dL (33.0-37.0); Mean Corpuscular Volume 88.8 fL (80.0-94.0); Mean Platelet Volume 9.5 fL (7.4-10.4); Platelet Count 326 10^3/uL (130-400); Red Blood Cell Count 5.38 10^6/uL (4.70-6.10); Red Cell Dist. Width 18.1 % (11.5-14.5); White Blood Cell Count 11.1 10^3/uL (4.8-10.8)
[2024-07-19] MEDS: SPIRIVA RESPIMAT 2.5 MCG 2 PUFF INH (08:24)
[2024-07-19] MEDS: SYMBICORT 80/4.5 MCG INHALER 2 PUFF INH ×2 (08:24→19:47)
[2024-07-19 08:43] LABS: Blood Urea Nitrogen 15 mg/dl (9-20); Calcium 9.2 mg/dl (8.4-10.2); Chloride 87 mmol/L (98-107); Estimated Creatinine Clearance 111 ml/min; Glucose 132 mg/dl (70-99); Magnesium 1.9 mg/dl (1.6-2.3); Potassium 4.3 mmol/L (3.5-5.1); Sodium 138 mmol/L (135-145); eGFR > 60.00
[2024-07-19] MEDS: ZESTRIL 40 MG PO (08:43)
[2024-07-19] MEDS: NICODERM TRANSDERMAL 7 MG TRANSDERM (08:43)
[2024-07-19] MEDS: LASIX 40 MG IV (08:44)
[2024-07-19] MEDS: LOPRESSOR 50 MG PO (08:44)
[2024-07-19 09:16] LABS: Carbon Dioxide 36 mmol/L (22-30)
--- NOTE | 2024-07-19 11:44 | CM ---
Addendum entered by Araceli Bustos 07/19/24 13:39:
TC to [facility], spoke with Gayatri re medication costs.
Eliquis 5 mg PO BID is a covered medication with a copay of $11.20, coupon placed on patients chart.
Original Note:
Pt seen ay bedside, states he still has some pain. He is agreeing to oxygen @ d/c via [employer].
Pt states he lives with nephew who will assist him at home. Declines transportation needs. Nephew will transport pt home.
Smoking was discussed, pt wants to stop smoking, currently has patch.
Plan: D/c home with VN and oxygen
--- NOTE | 2024-07-19 12:06 | W.PN.CARDCBS ---
Addendum entered and electronically signed by Donnell Faye MD 07/19/24 19:04:
I saw and examined the patient.
The Tire Maker's note was reviewed and I agree with the note.
Comment: Briefly, 73-year-old man past medical history of heart failure with mildly reduced ejection fraction, CAD with prior CABG and PCI, remote CVA who presented in decompensated heart failure
He is significantly volume overloaded on exam
Will need to continue aggressive IV diuresis
Wean oxygen as able
Counseled on daily weights and salt restriction
May need to involve wound care for erythema and blistering of lower extremities related to his edema
Episode of atrial flutter overnight recorded on twelve-lead ECG
Recommend oral anticoagulation for cardioembolic prophylaxis common given prior history of stroke [id number] score is significantly elevated
Rest per Mariel Lucas
Original Note:
Today's Communication / Plan
-
IV lasix increased
lopressor transitioned to toprol at higher dose given PAF/NSVT
start eliquis. stop asa
tubigrips
eventual ischemic evaluation needed
Impression / Plan
-
Assessment:
Acute heart failure likely heart failure with mildly reduced ejection fraction
CAD s/p remote CABG at [facility] and PCI at [place]
History of CVA 2010
NSVT
Paroxysmal atrial fibrillation/flutter
PAD, right femoral endarterectomy with saphenous vein angioplasty and right femoral to PT bypass August 04, 2023, Dr. Riley
Poor medical compliance
Osteomyelitis toe
COPD
HTN
HLD
DM2
Ongoing tobacco use
h/o bedbugs 06/17 admission
Recent cardiac testing:
- Echo 06/12/2024: EF 50%, basal inferior wall hypokinetic on parasternal short axis views, RV mildly dilated, mildly dilated RA, no significant valvular disease noted
- Echocardiogram July 28, 2023 finds normal LV size and function with LVEF in the low normal range estimated at 51% with basal to mid inferior wall severe hypokinesis. No significant valvular disease.
- Dobutamine nuclear stress test July 29, 2023 finds large inferior and basal inferior septal infarct without stephanie-infarct ischemia. Baseline LVEF 43%
Recommendations:
-He presented with 25 pound weight gain and evidence of acute on chronic heart failure. It is unclear he was taking the Lasix prescribed last admission, appears forgetful? CM consult for assistance at home upon DC
-Continue IV Lasix diuresis, agree with dose increase to 80mg BID today. Creatinine stable. Dry weight last admission 193 pounds
-Wean supplemental oxygen as able
-CHF education. Discussed 48 ounce fluid restriction and 2 g sodium restriction with patient
-noted to have paroxysmal afib/aflutter as well as NSVT up to 9 beats on review of tele overnight. will transition lopressor to toprol. K/mag stable. if continues with paroxysms, consider for AAD therapy
-[id number] score of 8. will initiate eliquis 5mg BID, continue plavix, and stop asa. hgb stable at 14.
-EF 50%. Continue lisinopril, Imdur.
-Not felt to be candidate for SGLT2 inhibitor given history of PAD and osteomyelitis
-continue LE wound care. vascular following. consider for treatment of cellulitis. tubigrips ordered
-recent echo 05/2024 with results as above
-trops flat at 0.09 range, suspected nonischemic myocardial injury. no CP. consider eventual ischemic evaluation prior to DC vs as OP - last was dobutamine stress test 08/16: large inferior and basal inferior septal infarct without ischemia, EF 43%.
continue asa, plavix, statin
-smoking cessation
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
Subjective
Date of Service: July 19, 2024
continued LE edema, abd bloating. no CP
Objective
Labs:
07/19/24 07:39
07/19/24 07:39
Labs
Hgb 14.0 g/dL (13.0-18.0) 07/19/24 07:39
Hct 47.8 % (39.0-52.0) 07/19/24 07:39
Plt Count 326 10^3/uL (130-400) 07/19/24 07:39
Sodium 138 mmol/L (135-145) 07/19/24 07:39
Potassium 4.3 mmol/L (3.5-5.1) 07/19/24 07:39
BUN 15 mg/dl (9-20) 07/19/24 07:39
Creatinine 0.7 mg/dL (0.7-1.3) 07/19/24 07:39
Glucose 132 mg/dl (70-99) H 07/19/24 07:39
Troponins
07/17/24 07/17/24 07/17/24
09:42 10:09 16:59
Troponin I Cancelled 0.106 H* 0.093 H*
07/17/24 07/18/24 07/19/24
20:56 06:24 01:50
Troponin I 0.098 H* 0.090 H* 0.080 H*
Vital Signs and I&O:
Vital Signs
Temp Pulse Resp BP Pulse Ox
98.8 F 74 24 115/58 93
07/19/24 11:42 07/19/24 11:42 07/19/24 11:42 07/19/24 11:42 07/19/24 11:42
Vital Signs
Temp Pulse Resp BP Pulse Ox
98.8 F 74 24 115/58 93
07/19/24 11:42 07/19/24 11:42 07/19/24 11:42 07/19/24 11:42 07/19/24 11:42
Intake & Output
07/17/24 07/18/24 07/19/24 07/20/24
07:59 07:59 07:59 07:59
Intake Total 360 / 360 1180 / 1180 1302 / 1302
Output Total 3675 / 3675 1900 / 1900 1400 / 1400
Balance -3315 / -3315 -720 / -720 -98 / -98
Physical Exam
Physical Exam
GEN: No distress, awake, alert, oriented x3. on supp O2
HEENT: supple, anicteric, mmm, eomi
LUNGS: CTA anterolaterally, no wheezes
CV: Reg rhythm, S1/S2
ABD: distended, +BS
EXT: No cyanosis, clubbing. 4+ edema of B/L LE with erythema B/L to thigh
NEURO: Gross non-focal
SKIN: Warm, pink, dry. No rash
[2024-07-19] MEDS: LASIX 80 MG IV (16:27)
[2024-07-19] MEDS: ELIQUIS 5 MG PO (19:36)
[2024-07-19] MEDS: TOPROL XL 50 MG PO (19:36)
[2024-07-19] MEDS: LIPITOR 80 MG PO (19:48)
[2024-07-19] MEDS: ProAIR HFA INHALER 2 PUFF INH (19:49)
[2024-07-20] VITALS (7 sets, daily range): BP systolic 103–155; BP diastolic 55–81; BMI 30.9
--- NOTE | 2024-07-20 07:10 | W.PN.HOSP.TC ---
Addendum entered and electronically signed by Roman Tolbert MD 07/20/24 13:22:
Seen and examined. Did not understand how heart failure could cause swelling and pain in his legs. This was explained to them. States worse left leg than right leg. Rest at the heel.
NAD, resting comfortably in bed
Scleral anicteric
Moist mucous membranes
HJR noted
Bibasilar cracklesl
Normal S1-S2 no murmurs
Soft nontender nondistended bowel sounds active
2+ pitting edema bilateral lower extremities, both lower extremity with some erythema when compared to right. Left foot heel tenderness over the setting area with noted black area. Unsure if this is necrotic tissue. Will have podiatry evaluate
Moves extremities spontaneously
AAOx3
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
-IV increase dose 80mg BID,
-Daily weights
-Follow renal function
-Monitor urinary output
-Keep K greater than 4
-Keep magnesium greater than 2
-SGLT2 inhibitor unable to provide due to PAD
-Cardiology following
Metabolic alkalosis likely contraction developing, will give dose of diamox. Repeat BMP in the AM. If HCO3 still increasing then will stop diuretics and provide 250mg-500mg bicarb BID
Low clinical suspicion for cellulitis, strange to be in both LE, also, without white count and afebrile. SUspect this is from HF. WIll continue to monitor.
PAD being followed by vascular surgery Doppler pulses
CAD s/p CABG continue DAPT statin and beta-du isosorbide mononitrate
COPD continue MDIs, without evidence of acute bronchospasm, maintain SpO2 greater than 88%
Active smoker NRT
MARIJA noncompliant CPAP
Original Note:
Today's Communication/Plan
-
Patient continues to be diuresed and is now down to 209.19 pounds. His prior discharge showed that he was around 200 pounds at time of discharge. He is slowly approaching his baseline. 500 mg acetazolamide added for avoidance of possible
metabolic alkalosis and rising serum bicarbonate levels.
Assessment / Plan
Assessment / Plan
HPI: Patient is a 73-year-old male with a past medical history of peripheral artery disease s/p right femoral bypass last year, hepatitis C, CAD s/p CABG, CHF, COPD, hypertension, diabetes, obstructive sleep apnea, hyperlipidemia who presented with
increased swelling of his left lower extremity for the past few weeks. He has had swelling of his left lower extremity with redness. He had marked pain of the left heel and a black marking/wound seen on the posterior aspect of his left heel. He
also reported soreness and cramping of the left calf with ambulation. He also reported that he was having increased shortness of breath with exertion. He has a chronic cough which was at baseline on his arrival. He has increased abdominal
distention and thinks that he gained a lot of weight although he did not weigh himself recently. He was recently admitted last month for CHF exacerbation. He smokes less than a half a pack of cigarettes a day and drinks beer occasionally.
Assessment/Plan:
-Acute on chronic HFmrEF exacerbation, NYHA class III-IV, [id number] score of 8
Ejection fraction at 50% on echo from last month. Hypokinetic inferior wall
Cardiology consulted -continues to follow
IV Lasix increased to mid 80 mg twice daily as the patient appears to be volume overloaded -patient's weight is over 20 pounds increased when compared to his last admission. Dry weight was 193 pounds on 06/13/2024. Weight on 07/16/2024 was 223
pounds. Weight on 07/18/2024 is 213.25 pounds. Weight on 07/19/2024 is 214.19 pounds. Weight on 07/20/2024 is 209.19 pounds.
500 mg p.o. acetazolamide added for patient diuresis and to ensure the patient does not become metabolically alkalotic
Check and I's and O's with daily weights
Most recent chest x-ray had no pertinent findings
Cardiac BNP at 12,000 on admission
Troponin 0.106 on admission -troponins currently at 0.090 trending downwards on 07/18/2024 - stable
Monitor BUN and creatinine
Keep potassium >4
Keep magnesium >2, magnesium found to be 1.6 on 07/18/2024 -repleted -given another additional IV dose of magnesium
Due to the patient's past history of peripheral artery disease and osteomyelitis, the patient is not a good candidate for an SGLT2 inhibitor
On 5 AM of 07/19/2024 the patient was noted to have a rhythm change -an EKG was conducted showing atrial flutter with variable AV block. Repeat EKG in the morning showed that the patient converted back to sinus rhythm.
Cardiology has transitioned from Lopressor to Toprol at a higher dose given PAF/NSVT
Eliquis 5 mg twice daily started and aspirin discontinued. Lovenox continued.
Tubigrip or Mayur wrap for compression of legs to assist pushing fluid back into the intravascular space for diuresis
Recommend outpatient follow-up for chronic limb ischemia after discharge.
-Chronic ischemia of the left lower extremity
-Left heel pain with noted black area
-Peripheral artery disease s/p right femoral bypass
Wound care consult ordered
X-ray of left heel ordered
Continue statin and beta-du with isosorbide mononitrate
Podiatry consult appreciated. By their assessment they believe the patient is appropriate to be followed in the outpatient setting.
Prior bilateral arterial study conducted on 06/13/2024 showed left common femoral artery occlusion, profunda femoris artery was patent, heavily calcified plaque within the left popliteal artery, and low velocity flow measuring 13 cm/s.
Infrapopliteal disease may also have been present.
-History of COPD:
Patient used to be followed by pulmonology at [facility] but he has not been seen in many years.
He continues to use Trelegy and albuterol
Continue current treatment
Patient currently saturating at 93% on 4 L of oxygen
- Obstructive sleep apnea:
Patient noncompliant with CPAP
-Nicotine dependence:
Patient is an active smoker, but he admits to greatly reducing the amount he smokes over the years
-History of bedbugs:
No tracking bite abreu noted
Considering moving to private room to ensure therapeutic milieu for all
DVT prophylaxis: Eliquis
DNR status
Data:
- Chest x-ray conducted on 07/16/2024:
The lungs appear clear. Cardiac silhouette size is top normal with no evidence for pulmonary edema or pleural effusion.
- Abdominal CT conducted on 07/16/2024:
1. Patent right femoral to posterior tibial arterial bypass graft.
2. Chronic complete occlusion of the entire right superficial femoral artery with reconstitution at the level of the popliteal artery.
3. Chronic occlusion of the left superficial femoral artery at its origin with some reconstitution of flow at the level of the severely stenotic distal left SFA and popliteal artery.
4. Patent stent in the left common femoral artery/profunda femoris.
5. Severe aortobiiliac calcified atherosclerosis.
6. Infrarenal abdominal aortic aneurysm measuring 3.6 cm diameter.
7. Mild abdominopelvic ascites.
8. Chronic findings, as detailed above.
-Left heel x-ray conducted on 07/17/2024:
No plain film evidence of osteomyelitis. Small calcaneal osteophytes.
Anticipated Discharge: 24 - 48 hours
Subjective/Interval History
-
Date of Service: July 20, 2024
Met with patient at the bedside. Overall he is doing much better and states that his leg pain is almost completely gone. His right leg is back to normal from what he says and his only complaints about his left leg is ongoing itchiness near a
venous stasis ulcer located near the heel. He states that he has been going to the bathroom quite often but understands why he is going to the bathroom.
Objective Data
-
Labs:
Laboratory Results
07/20/24
07:07
WBC Pending
Hgb Pending
Hct Pending
Plt Count Pending
Sodium Pending
Potassium Pending
Chloride Pending
Carbon Dioxide Pending
BUN Pending
Creatinine Pending
Glucose Pending
Calcium Pending
Total Bilirubin Pending
AST Pending
ALT Pending
Alkaline Phosphatase Pending
Vital Signs:
Vital Signs
Temp Pulse Resp BP Pulse Ox
98.5 F 82 20 129/62 94
07/20/24 02:56 07/20/24 02:56 07/20/24 02:56 07/20/24 02:56 07/20/24 02:56
I&O
07/19/24 07/20/24 07/21/24
06:59 06:59 06:59
Intake Total 1302 / 1302 720 / 720
Output Total 1400 / 1400 1650 / 1650
Balance -98 / -98 -930 / -930
Review of Systems
-
History Source: Patient
All other systems: Reviewed and negative
Constitutional: Reports No Symptoms
EENT: Reports No Symptoms Reported
Respiratory: Reports No Symptoms
Cardiac: Reports No Symptoms
Abdomen/GI: Reports No Symptoms
Breast: Reports No Symptoms
Genitourinary: Reports No Symptoms
Musculoskeletal: Reports Edema (Edema on his left leg)
Skin: Reports Itching (Itchy skin predominantly on his lower left leg.)
Neuro: Reports No Symptoms
Endocrine: Reports No Symptoms
Hematologic / Lymphatic: Reports No Symptoms
Physical Exam
-
General: Well Developed, Well Nourished, No Apparent Distress and Comfortable
HEENT: Normocephalic, Atraumatic and Moist Mucous Membranes
Respiratory: Crackles (Bibasilar crackles noted) and Decreased Breath Sounds (Decreased breath sounds bilaterally throughout)
Cardiac: Regular Rhythm and S1/S2
Breast: Deferred by me
GI: Soft, Nontender, Nondistended and Normal Bowel Sounds
Rectal: Deferred by Provider
Genito-urinary: Clear Urine and Deferred by me
Musculoskeletal: No Clubbing, No Cyanosis and No Edema
Neuro: Awake, Alert, Oriented and AO x 3
[2024-07-20] MEDS: SPIRIVA RESPIMAT 2.5 MCG 2 PUFF INH (07:21)
[2024-07-20] MEDS: SYMBICORT 80/4.5 MCG INHALER 2 PUFF INH ×2 (07:21→19:50)
[2024-07-20] MEDS: ProAIR HFA INHALER 2 PUFF INH (07:28)
[2024-07-20] MEDS: HYDROPHOR 1 APPLIC TOPICAL (07:58)
[2024-07-20] MEDS: DESENEX/MITRAZOL/ZEASORB 1 APPLIC TOPICAL ×2 (07:58→20:06)
[2024-07-20] MEDS: IMDUR (EXTENDED RELEASE) 60 MG PO (07:59)
[2024-07-20] MEDS: PLAVIX 75 MG PO (07:59)
[2024-07-20] MEDS: TOPROL XL 50 MG PO ×2 (08:00→20:05)
[2024-07-20] MEDS: ELIQUIS 5 MG PO ×2 (08:00→20:05)
[2024-07-20] MEDS: ZESTRIL 40 MG PO (08:00)
[2024-07-20] MEDS: LASIX 80 MG IV ×2 (08:00→15:58)
[2024-07-20] MEDS: NICODERM TRANSDERMAL 7 MG TRANSDERM (08:00)
[2024-07-20] MEDS: FOLVITE 1 MG PO (08:00)
[2024-07-20 08:03] LABS: Hemoglobin 14.6 g/dL (13.0-18.0); Mean Corp Hgb Conc. 29.8 g/dL (33.0-37.0); Mean Corpuscular Hgb 26.7 pg (27.0-31.0); Mean Corpuscular Volume 89.7 fL (80.0-94.0); Mean Platelet Volume 9.7 fL (7.4-10.4); Platelet Count 325 10^3/uL (130-400); Red Blood Cell Count 5.46 10^6/uL (4.70-6.10); Red Cell Dist. Width 17.9 % (11.5-14.5); White Blood Cell Count 10.9 10^3/uL (4.8-10.8)
--- NOTE | 2024-07-20 08:25 | PTCARENOTE ---
07/20- Patient rhythm sustaining in AFlutter with HR in 120s-150s. Patient AAOX3, denies any CP/SOB/Lightheadedness or any other S/S at this time. Notified Cardiology. AM meds including PO Metoprolol, Eliquis, Plavix and Lisinopril administered as
ordered ~20minutes ago. Will continue to monitor.
[2024-07-20 08:46] LABS: ALT (SGPT) 20 U/L (0-50); AST (SGOT) 34 U/L (17-59); Albumin 3.5 g/dl (3.5-5.0); Alkaline Phosphatase 79 U/L (38-126); Blood Urea Nitrogen 15 mg/dl (9-20); Calcium 9.3 mg/dl (8.4-10.2); Chloride 85 mmol/L (98-107); Estimated Creatinine Clearance 110 ml/min; Glucose 117 mg/dl (70-99); Magnesium 1.8 mg/dl (1.6-2.3); Potassium 4.3 mmol/L (3.5-5.1); Sodium 137 mmol/L (135-145); Total Bilirubin 0.8 mg/dl (0.2-1.3); Total Protein 6.2 g/dl (6.3-8.2); eGFR > 60.00
[2024-07-20 09:14] LABS: Carbon Dioxide 42 mmol/L (22-30)
[2024-07-20 09:42] LABS: Venous Blood Gas B.E. 22.7 mmol/L (-4 to +4); Venous Blood Gas HCO3 52.4 mmol/L (22-27); Venous Blood Gas O2 Sat % 91.5 %; Venous Blood Gas pH 7.43 (7.32-7.43); Venous Blood Gas pO2 59 mmHg (30-50)
[2024-07-20 09:48] LABS: Venous Blood Gas pCO2 79 mmHg (35-48)
[2024-07-20] MEDS: DIAMOX 500 MG PO (12:23)
--- NOTE | 2024-07-20 15:05 | CM ---
Patient seen bedside.
Remains on oxygen 3 liters.
patient with compression stockings.
Per patient legs still red and swollen.
Will need home oxygen assessment prior to d/c.
Plan: remains home with [facility] and home oxygen.
--- NOTE | 2024-07-20 15:26 | W.PN.CARDCBS ---
Addendum entered and electronically signed by Edward Moya MD 07/20/24 16:21:
I saw and examined the patient.
The Secretary To Board Of Commissioners's note was reviewed and I agree with the note.
Comment:
GEN: No distress, awake, Ox3
HEENT: supple, anicteric, mmm
LUNGS: Bilateral rhonchi
CV: Irreg, S1/S2, 1/6 syst LSB, no gallop
ABD: soft, BS+, NT/ND
EXT: No edema
NEURO: Gross non-focal
SKIN: No rash
Plan:
Back in A-fib today. Will try adding amiodarone 200 mg p.o. 3 times daily to try to maintain sinus rhythm. Continue Eliquis and Plavix.
Remains somewhat volume overloaded with elevated bicarb. Agree with plan to try Diamox.
Continue Lasix 80 mg IV twice daily.
Continue amiodarone, lisinopril, isosorbide, and atorvastatin for CAD.
Echo from May 2024 has EF of 50%.
Continue Spiriva and Symbicort
Original Note:
Today's Communication / Plan
-
continue diuresis
start diamox
wean supp O2
consider aad therapy
continue eliquis, plavix
Impression / Plan
-
Assessment:
Acute heart failure likely heart failure with mildly reduced ejection fraction
CAD s/p remote CABG at [facility] and PCI at [place]
History of CVA 2010
NSVT
Paroxysmal atrial fibrillation/flutter
PAD, right femoral endarterectomy with saphenous vein angioplasty and right femoral to PT bypass August 04, 2023, Dr. Riley
Poor medical compliance
Osteomyelitis toe
COPD
HTN
HLD
DM2
Ongoing tobacco use
h/o bedbugs 06/17 admission
Recent cardiac testing:
- Echo 06/12/2024: EF 50%, basal inferior wall hypokinetic on parasternal short axis views, RV mildly dilated, mildly dilated RA, no significant valvular disease noted
- Echocardiogram July 28, 2023 finds normal LV size and function with LVEF in the low normal range estimated at 51% with basal to mid inferior wall severe hypokinesis. No significant valvular disease.
- Dobutamine nuclear stress test July 29, 2023 finds large inferior and basal inferior septal infarct without stephanie-infarct ischemia. Baseline LVEF 43%
Recommendations:
-appears to be improving from volume standpoint, however still with overload on exam today. continue IV lasix 80mg BID. Cr stable. dry weight 193 pounds
-due to worsening CO2, diamox added
-Wean supplemental oxygen as able
-CHF education. Discussed 48 ounce fluid restriction and 2 g sodium restriction with patient
-lopressor transitioned to toprol. remains with paroxysms of afib/aflutter with RVR, patient asymptomatic. consider addition of AAD therapy
-[id number] score of 7. continue plavix, eliquis. hgb 14.6
-EF 50%. Continue lisinopril, Imdur.
-Not felt to be candidate for SGLT2 inhibitor given history of PAD and osteomyelitis
-continue LE wound care. vascular following. tubigrips ordered
-recent echo 05/2024 with results as above
-trops flat at 0.09 range, suspected nonischemic myocardial injury. no CP. consider eventual ischemic evaluation prior to DC vs as OP - last was dobutamine stress test 08/16: large inferior and basal inferior septal infarct without ischemia, EF 43%.
continue plavix, statin
-smoking cessation
Progress Note - Firer Kiln
Subjective
Date of Service: July 20, 2024
reports LE edema improving
Objective
Labs:
07/20/24 07:16
07/20/24 07:16
Labs
Hgb 14.6 g/dL (13.0-18.0) 07/20/24 07:16
Hct 49.0 % (39.0-52.0) 07/20/24 07:16
Plt Count 325 10^3/uL (130-400) 07/20/24 07:16
Sodium 137 mmol/L (135-145) 07/20/24 07:16
Potassium 4.3 mmol/L (3.5-5.1) 07/20/24 07:16
BUN 15 mg/dl (9-20) 07/20/24 07:16
Creatinine 0.7 mg/dL (0.7-1.3) 07/20/24 07:16
Glucose 117 mg/dl (70-99) H 07/20/24 07:16
Troponins
07/17/24 07/17/24 07/18/24
16:59 20:56 06:24
Troponin I 0.093 H* 0.098 H* 0.090 H*
07/19/24
01:50
Troponin I 0.080 H*
Vital Signs and I&O:
Vital Signs
Temp Pulse Resp BP Pulse Ox
98.3 F 79 24 117/55 86
07/20/24 11:00 07/20/24 11:00 07/20/24 11:00 07/20/24 11:00 07/20/24 11:23
Vital Signs
Temp Pulse Resp BP Pulse Ox
98.3 F 79 24 117/55 86
07/20/24 11:00 07/20/24 11:00 07/20/24 11:00 07/20/24 11:00 07/20/24 11:23
Intake & Output
07/18/24 07/19/24 07/20/24 07/21/24
07:59 07:59 07:59 07:59
Intake Total 1180 / 1180 1302 / 1302 720 / 720
Output Total 1900 / 1900 1400 / 1400 1650 / 1650
Balance -720 / -720 -98 / -98 -930 / -930
Physical Exam
Physical Exam
GEN: No distress, awake, alert, oriented x3. on supp O2
HEENT: supple, anicteric, mmm, eomi
LUNGS: CTA B/L, no wheezes/rales
CV: Irreg, S1/S2, no murmur
ABD: soft, BS+, NT/ND
EXT: No cyanosis, clubbing. 2+ edema with tubigrips in place
NEURO: Gross non-focal
SKIN: Warm, pink, dry. No rash
[2024-07-20] MEDS: PACERONE 200 MG PO ×2 (15:57→21:57)
[2024-07-20] MEDS: LIPITOR 80 MG PO (21:57)
[2024-07-21] VITALS (8 sets, daily range): BP systolic 97–136; BP diastolic 54–72; O2SAT 85–94; BMI 29.8
[2024-07-21] MEDS: AFRIN NASAL SPRAY 2 SPRAYS NASAL (04:46)
--- NOTE | 2024-07-21 05:00 | PTCARENOTE ---
Pt reports having a nosebleed from his right nostril for the past several hours without stopping. 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 Afrin nasal spray and
ice pack provided to pt, will monitor for further signs of bleeding.
--- NOTE | 2024-07-21 06:33 | W.PN.UPDATE ---
Addendum entered and electronically signed by JUAN Melgar 07/21/24 06:51:
discussed with ENT about packing nostril due to epistaxis. Updated by nursing that bleeding has all but stopped so will cancel consult to ENT.
Original Note:
Update Note
Progress Note Update
Epistaxis overnight. Afrin, ice pack, manual pressure. Eliquis held and ENT consult for packing placed.
[2024-07-21 06:39] LABS: Hematocrit 46.4 % (39.0-52.0); Mean Corp Hgb Conc. 30.2 g/dL (33.0-37.0); Mean Corpuscular Hgb 26.4 pg (27.0-31.0); Mean Corpuscular Volume 87.5 fL (80.0-94.0); Mean Platelet Volume 9.5 fL (7.4-10.4); Platelet Count 310 10^3/uL (130-400); Red Cell Dist. Width 17.9 % (11.5-14.5); White Blood Cell Count 10.7 10^3/uL (4.8-10.8)
[2024-07-21 07:01] LABS: ALT (SGPT) 22 U/L (0-50); AST (SGOT) 37 U/L (17-59); Albumin 3.6 g/dl (3.5-5.0); Alkaline Phosphatase 93 U/L (38-126); Blood Urea Nitrogen 19 mg/dl (9-20); Calcium 9.5 mg/dl (8.4-10.2); Chloride 87 mmol/L (98-107); Estimated Creatinine Clearance 68 ml/min; Glucose 135 mg/dl (70-99); Potassium 3.9 mmol/L (3.5-5.1); Sodium 137 mmol/L (135-145); Total Bilirubin 0.8 mg/dl (0.2-1.3); Total Protein 6.2 g/dl (6.3-8.2); eGFR > 60.00
[2024-07-21 07:12] LABS: Carbon Dioxide 34 mmol/L (22-30)
[2024-07-21] MEDS: SYMBICORT 80/4.5 MCG INHALER 2 PUFF INH ×2 (07:51→19:57)
[2024-07-21] MEDS: SPIRIVA RESPIMAT 2.5 MCG 2 PUFF INH (07:51)
[2024-07-21] MEDS: LASIX 80 MG IV ×2 (08:50→15:59)
[2024-07-21] MEDS: DESENEX/MITRAZOL/ZEASORB 1 APPLIC TOPICAL ×2 (08:50→20:23)
[2024-07-21] MEDS: IMDUR (EXTENDED RELEASE) 60 MG PO (08:50)
[2024-07-21] MEDS: PACERONE 200 MG PO ×3 (08:50→22:27)
[2024-07-21] MEDS: PLAVIX 75 MG PO (08:50)
[2024-07-21] MEDS: ZESTRIL 40 MG PO (08:50)
[2024-07-21] MEDS: FOLVITE 1 MG PO (08:50)
[2024-07-21] MEDS: NICODERM TRANSDERMAL 7 MG TRANSDERM (08:50)
[2024-07-21] MEDS: HYDROPHOR 1 APPLIC TOPICAL (08:50)
[2024-07-21] MEDS: TOPROL XL 50 MG PO ×2 (08:50→20:18)
--- NOTE | 2024-07-21 08:50 | PTCARENOTE ---
07/21- Patient's Epistaxis is intermittent but persistent. Educated patient on applying pressure to nasal bridge consistently for at least 10minutes to achieve coagulation, and educated patient on applying ice packs to achieve coagulation as well.
He verbalized understanding. Also applied Humidifier to O2 to avoid Oxygen further drying out nares. Notified Physician. Will continue to monitor.
--- NOTE | 2024-07-21 09:30 | PTCARENOTE ---
07/21- Patient continues to have epistaxis. This RN came into room with ice pack and towel to the side of his bed and not applying pressure to nasal bridge or wearing nasal cannula. Advised he must comply with self-care to resolve this epistaxis.
He verbalized understanding but states, 'I'm not just going to sit here gripping my nose all day. I can't breathe, and I have COPD.' Validated his feelings but educated on self-care and resolving epistaxis so that he will comply with wearing his O2
since he cannot be optimally saturated on RA. POX on RA=87%, HR=83; but POX=94% on 2L and HR=85. Will continue to monitor.
--- NOTE | 2024-07-21 10:00 | PTCARENOTE ---
07/21- Patient continues epistaxis and continues to not comply with self-care or wearing O2. Applied petroleum-covered gauze into BL nares as 2nd attempt to resolve Epistaxis in the absence of self-care compliance. Will continue to monitor.
--- NOTE | 2024-07-21 10:49 | W.PN.CARDCBS ---
Today's Communication / Plan
-
Cont Amio/Toprol/Eliquis
Having nosebleeds. Hold Plavix. Consider ENT eval.
Cont IV Lasix for another 24 hours. Weight is down
Did respond well to Diamox
Creat normal. PCO2 improving
Impression / Plan
-
Assessment:
Acute heart failure likely heart failure with mildly reduced ejection fraction
CAD s/p remote CABG at [facility] and PCI at [place]
History of CVA 2010
NSVT
Paroxysmal atrial fibrillation/flutter
PAD, right femoral endarterectomy with saphenous vein angioplasty and right femoral to PT bypass August 04, 2023, Dr. Riley
Poor medical compliance
Osteomyelitis toe
COPD
HTN
HLD
DM2
Ongoing tobacco use
h/o bedbugs 06/17 admission
Recent cardiac testing:
- Echo 06/12/2024: EF 50%, basal inferior wall hypokinetic on parasternal short axis views, RV mildly dilated, mildly dilated RA, no significant valvular disease noted
- Echocardiogram July 28, 2023 finds normal LV size and function with LVEF in the low normal range estimated at 51% with basal to mid inferior wall severe hypokinesis. No significant valvular disease.
- Dobutamine nuclear stress test July 29, 2023 finds large inferior and basal inferior septal infarct without stephanie-infarct ischemia. Baseline LVEF 43%
Recommendations:
-weight down to 201. Cont IV lasix. did respond nicely to Diamox. Creat normal. PCO2 now 34.
-Wean supplemental oxygen as able
-CHF education. Discussed 48 ounce fluid restriction and 2 g sodium restriction with patient
-Back in sinus rhythm. Cont Amio 200mg po tid and Toprol
-[id number] score of 7.
-having nosebleeds. Cont Eliquis. Hold Plavix for now. Hg stable. Consider ENT eval
-EF 50%. Continue lisinopril, Imdur.
-Not felt to be candidate for SGLT2 inhibitor given history of PAD and osteomyelitis
-continue LE wound care. vascular following. tubigrips ordered
-recent echo 05/2024 with results as above
-trops flat at 0.09 range, suspected nonischemic myocardial injury. no CP. consider eventual ischemic evaluation prior to DC vs as OP - last was dobutamine stress test 08/16: large inferior and basal inferior septal infarct without ischemia, EF 43%.
continue plavix, statin
-smoking cessation
Progress Note - [employer] Oven Tender
Subjective
Date of Service: July 21, 2024
weight is down and back in sinus. having nosebleeds.
Objective
Labs:
07/21/24 06:10
07/21/24 06:10
Labs
Hgb 14.0 g/dL (13.0-18.0) 07/21/24 06:10
Hct 46.4 % (39.0-52.0) 07/21/24 06:10
Plt Count 310 10^3/uL (130-400) 07/21/24 06:10
Sodium 137 mmol/L (135-145) 07/21/24 06:10
Potassium 3.9 mmol/L (3.5-5.1) 07/21/24 06:10
BUN 19 mg/dl (9-20) 07/21/24 06:10
Creatinine 1.0 mg/dL (0.7-1.3) 07/21/24 06:10
Glucose 135 mg/dl (70-99) H 07/21/24 06:10
Troponins
07/19/24
01:50
Troponin I 0.080 H*
Vital Signs and I&O:
Vital Signs
Temp Pulse Resp BP Pulse Ox
98.3 F 76 20 121/72 94
07/21/24 07:00 07/21/24 07:00 07/21/24 07:00 07/21/24 07:00 07/21/24 08:50
Vital Signs
Temp Pulse Resp BP Pulse Ox
98.3 F 76 20 121/72 94
07/21/24 07:00 07/21/24 07:00 07/21/24 07:00 07/21/24 07:00 07/21/24 08:50
Intake & Output
07/19/24 07/20/24 07/21/24 07/22/24
06:59 06:59 06:59 06:59
Intake Total 1302 / 1302 720 / 720 1560 / 1560
Output Total 1400 / 1400 1650 / 1650 4025 / 4025
Balance -98 / -98 -930 / -930 -2465 / -2465
Physical Exam
Physical Exam
GEN: No distress, awake, Ox3
HEENT: supple, anicteric, mmm, nosebleed
LUNGS: scatt rhonchi
CV: Reg, S1/S2, 1/6 syst LSB, no gallop
ABD: soft, BS+, NT/ND
EXT: No edema
NEURO: Gross non-focal
SKIN: No rash
--- NOTE | 2024-07-21 10:57 | W.PN.HOSP.TC ---
Addendum entered and electronically signed by Roman Tolbert MD 07/21/24 16:42:
epistaxis due to o2, humidify air, bleedign exacterbated by eliquis and plavix being on aboard.
Addendum entered and electronically signed by Roman Tolbert MD 07/21/24 15:14:
Seen and examined. Did not understand how heart failure could cause swelling and pain in his legs. This was explained to them. States worse left leg than right leg. Rest at the heel.
NAD, resting comfortably in bed
Scleral anicteric
Moist mucous membranes
HJR noted
Bibasilar cracklesl
Normal S1-S2 no murmurs
Soft nontender nondistended bowel sounds active
2+ pitting edema bilateral lower extremities, both lower extremity with some erythema when compared to right. Left foot heel tenderness over the setting area with noted black area. Unsure if this is necrotic tissue. Will have podiatry evaluate
Moves extremities spontaneously
AAOx3
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
-IV increase dose 80mg BID,
-Daily weights
-Follow renal function
-Monitor urinary output
-Keep K greater than 4
-Keep magnesium greater than 2
-SGLT2 inhibitor unable to provide due to PAD
-Cardiology following
Metabolic alkalosis likely contraction developing, will give dose of diamox. Repeat BMP in the AM. If HCO3 still increasing then will stop diuretics and provide 250mg-500mg bicarb BID
-Improved after Diamox
-Will continue to monitor nicola as still needing IV diuretics
-Repeat VBG in the AM
Epistaxis
-Due to o2, ask nursing to humidifiy air
-Hold rpressure
-Cotton ball iwth vaseline
-Consult ENT for NPL to r/o posterior bleed and place rhinorocket
Low clinical suspicion for cellulitis, strange to be in both LE, also, without white count and afebrile. SUspect this is from HF. WIll continue to monitor.
PAD being followed by vascular surgery Doppler pulses
CAD s/p CABG continue DAPT statin and beta-du isosorbide mononitrate
COPD continue MDIs, without evidence of acute bronchospasm, maintain SpO2 greater than 88%
Active smoker NRT
MARIJA noncompliant CPAP
Original Note:
Today's Communication/Plan
-
Patient had an episode of epistaxis this morning likely due to the nasal cannula oxygen drying his mucous membranes of the nose. Humidified oxygen given. Patient's left lower extremity continues to show steady improvement. He continues to have a
high urine output and we will continue to diurese him as his creatinine is only 1 and has more fluid to shed. Continue to monitor bicarb. VBG ordered for tomorrow.
Assessment / Plan
Assessment / Plan
HPI: Patient is a 73-year-old male with a past medical history of peripheral artery disease s/p right femoral bypass last year, hepatitis C, CAD s/p CABG, CHF, COPD, hypertension, diabetes, obstructive sleep apnea, hyperlipidemia who presented with
increased swelling of his left lower extremity for the past few weeks. He has had swelling of his left lower extremity with redness. He had marked pain of the left heel and a black marking/wound seen on the posterior aspect of his left heel. He
also reported soreness and cramping of the left calf with ambulation. He also reported that he was having increased shortness of breath with exertion. He has a chronic cough which was at baseline on his arrival. He has increased abdominal
distention and thinks that he gained a lot of weight although he did not weigh himself recently. He was recently admitted last month for CHF exacerbation. He smokes less than a half a pack of cigarettes a day and drinks beer occasionally.
Assessment/Plan:
-Acute on chronic HFmrEF exacerbation, NYHA class III-IV, [id number] score of 8
Ejection fraction at 50% on echo from last month. Hypokinetic inferior wall
Cardiology consulted -continues to follow
IV Lasix increased to mid 80 mg twice daily as the patient appears to be volume overloaded -patient's weight is over 20 pounds increased when compared to his last admission. Dry weight was 193 pounds on 06/13/2024. Weight on 07/16/2024 was 223
pounds. Weight on 07/18/2024 is 213.25 pounds. Weight on 07/19/2024 is 214.19 pounds. Weight on 07/20/2024 is 209.19 pounds.
500 mg p.o. acetazolamide continued for patient diuresis and to ensure the patient does not become metabolically alkalotic. If bicarb continues to increase then we will stop diuretics and provide 250 mg to 500 mg of bicarb twice daily.
Check and I's and O's with daily weights
Most recent chest x-ray had no pertinent findings
Cardiac BNP at 12,000 on admission
Troponin 0.106 on admission -troponins currently at 0.090 trending downwards on 07/18/2024 - stable
Monitor BUN and creatinine
Keep potassium >4 -potassium found to be 3.9 on 07/21/2024�repleted
Keep magnesium >2, magnesium found to be 1.6 on 07/18/2024 -repleted -given another additional IV dose of magnesium
Due to the patient's past history of peripheral artery disease and osteomyelitis, the patient is not a good candidate for an SGLT2 inhibitor
On 5 AM of 07/19/2024 the patient was noted to have a rhythm change -an EKG was conducted showing atrial flutter with variable AV block. Repeat EKG in the morning showed that the patient converted back to sinus rhythm.
Cardiology has transitioned from Lopressor to Toprol at a higher dose given PAF/NSVT
Eliquis 5 mg twice daily started and aspirin discontinued. Lovenox continued.
Tubigrip or Mayur wrap for compression of legs to assist pushing fluid back into the intravascular space for diuresis
Recommend outpatient follow-up for chronic limb ischemia after discharge.
-Epistaxis:
Patient had an episode of epistaxis early in the morning on 07/21/2024 likely due to mucous drying from nasal cannula oxygen
Humidified oxygen started
Eliquis and Plavix held
-Chronic ischemia of the left lower extremity
-Left heel pain with noted black area
-Peripheral artery disease s/p right femoral bypass
Wound care consult ordered
X-ray of left heel ordered
Continue statin and beta-du with isosorbide mononitrate
Podiatry consult appreciated. By their assessment they believe the patient is appropriate to be followed in the outpatient setting.
Prior bilateral arterial study conducted on 06/13/2024 showed left common femoral artery occlusion, profunda femoris artery was patent, heavily calcified plaque within the left popliteal artery, and low velocity flow measuring 13 cm/s.
Infrapopliteal disease may also have been present.
-History of COPD:
Patient used to be followed by pulmonology at [place] but he has not been seen in many years.
He continues to use Trelegy and albuterol
Continue current treatment
Patient currently saturating at 93% on 2 L of oxygen
VBG ordered
- Obstructive sleep apnea:
Patient noncompliant with CPAP
-Nicotine dependence:
Patient is an active smoker, but he admits to greatly reducing the amount he smokes over the years
-History of bedbugs:
No tracking bite abreu noted
Considering moving to private room to ensure therapeutic milieu for all
DVT prophylaxis: Eliquis
DNR status
Data:
- Chest x-ray conducted on 07/16/2024:
The lungs appear clear. Cardiac silhouette size is top normal with no evidence for pulmonary edema or pleural effusion.
- Abdominal CT conducted on 07/16/2024:
1. Patent right femoral to posterior tibial arterial bypass graft.
2. Chronic complete occlusion of the entire right superficial femoral artery with reconstitution at the level of the popliteal artery.
3. Chronic occlusion of the left superficial femoral artery at its origin with some reconstitution of flow at the level of the severely stenotic distal left SFA and popliteal artery.
4. Patent stent in the left common femoral artery/profunda femoris.
5. Severe aortobiiliac calcified atherosclerosis.
6. Infrarenal abdominal aortic aneurysm measuring 3.6 cm diameter.
7. Mild abdominopelvic ascites.
8. Chronic findings, as detailed above.
-Left heel x-ray conducted on 07/17/2024:
No plain film evidence of osteomyelitis. Small calcaneal osteophytes.
Anticipated Discharge: > 48 hours
Subjective/Interval History
-
Date of Service: July 21, 2024
Met with patient at the bedside. He states that he is happy that he is losing the extra fluid but is bothered by his large epistaxis that recently started today. Patient mostly wiping away the blood from his nose instead of applying pressure.
Patient advised to apply pressure to stop the bleed. Humidified oxygen started.
Objective Data
-
Labs:
Laboratory Results
07/21/24
06:10
WBC 10.7
Hgb 14.0
Hct 46.4
Plt Count 310
Sodium 137
Potassium 3.9
Chloride 87 L
Carbon Dioxide 34 H
BUN 19
Creatinine 1.0
Glucose 135 H
Calcium 9.5
Total Bilirubin 0.8
AST 37
ALT 22
Alkaline Phosphatase 93
Vital Signs:
Vital Signs
Temp Pulse Resp BP Pulse Ox
98.3 F 76 20 121/72 94
07/21/24 07:00 07/21/24 07:00 07/21/24 07:00 07/21/24 07:00 07/21/24 08:50
I&O
07/20/24 07/21/24 07/22/24
06:59 06:59 06:59
Intake Total 720 / 720 1560 / 1560
Output Total 1650 / 1650 4025 / 4025
Balance -930 / -930 -2465 / -2465
Review of Systems
-
History Source: Patient
Constitutional: Reports No Symptoms
EENT: Reports Bloody Nose (Epistaxis)
Respiratory: Reports No Symptoms
Cardiac: Reports No Symptoms
Abdomen/GI: Reports No Symptoms
Breast: Reports No Symptoms
Genitourinary: Reports No Symptoms
Musculoskeletal: Reports Other (Left leg itching)
Skin: Reports Itching (Itchiness of the skin on the left lower limb)
Neuro: Reports No Symptoms
Endocrine: Reports No Symptoms
Hematologic / Lymphatic: Reports Bleeding (Epistaxis)
Physical Exam
-
General: Well Developed, Well Nourished and No Apparent Distress
HEENT: Normocephalic, Oxygen (2 L nasal cannula) and Other (Epistaxis)
Respiratory: Crackles (Bibasilar crackles) and Decreased Breath Sounds (Diminished breath sounds in the lower lung patton bilaterally)
Cardiac: Regular Rhythm and S1/S2
Breast: Deferred by me
GI: Soft, Nontender, Nondistended and Normal Bowel Sounds
Genito-urinary: Deferred by me
Musculoskeletal: Edema, Right Lower Extrem (1+) and Edema, Left Lower Extrem (2+ edema)
Skin: Warm, Dry and Other (Flaky skin bilaterally of the lower limbs)
Neuro: Awake, Alert, Oriented and AO x 3
Psych: Calm
[2024-07-21] MEDS: KCL 20 MEQ PO (12:04)
--- NOTE | 2024-07-21 14:29 | CM ---
Pt seen at bedside. IMM reviewed and signed.
Pt will need home oxygen assessment prior to d/c. Set up through [facility], will need new referral.
Plan: Home with oxygen and [facility]
--- NOTE | 2024-07-21 15:31 | PN.CDI ---
CDI
- -
CDI:
Physician Documentation Request
Admit Date: 07/16/24 13:16
Dear Vinicio Lanier,
Clinical Indicators:
07/21 (08:50) RN note, '07/21- Patient's Epistaxis is intermittent but persistent'
07/21 Cardiology PN, 'Having nosebleeds. Hold Plavix. Consider ENT eval.'
07/21 PN,'-Epistaxis: Patient had an episode of epistaxis early in the morning on 07/21/2024 likely due to mucous drying from nasal cannula oxygen...Eliquis and Plavix held.'
Please clarify the likely relationship between the epistaxis and Eliquis/Plavix use:
Yes, epistaxis is related to/associated with/exacerbated by Eliquis/Plavix use
No, epistaxis is not related to/associated with/exacerbated by Eliquis/Plavix use but it is due to mucous drying from nasal cannula only.
Unable to determine
Use of terms such as suspected, likely, concern for, or probable (associated with a specific diagnosis that is being evaluated, monitored, or treated as if it exists) are acceptable and can be coded in the inpatient setting, when documented at the
time of discharge.
Thank you,
Kimmy Urbina RN BSN
CDI Specialist
available via tiger text
Please use your independent medical judgment in providing your response.
[2024-07-21 16:58] LABS: Glucose - Point of Care 225 mg/dl (70-99)
[2024-07-21] MEDS: AFRIN NASAL SPRAY NASAL (20:23)
--- NOTE | 2024-07-21 22:18 | PTCARENOTE ---
Pt's nicotine patch fell off; pt refused to have patch placed back on, stating 'it doesn't look like there's anything left'. Will pass along to day shift RN.
[2024-07-21] MEDS: LIPITOR 80 MG PO (22:27)
[2024-07-22 03:36] VITALS: BP 126/64
[2024-07-22 05:56] LABS: Venous Blood Gas B.E. 15.3 mmol/L (-4 to +4); Venous Blood Gas HCO3 44.2 mmol/L (22-27); Venous Blood Gas O2 Sat % 99.9 %; Venous Blood Gas pH 7.39 (7.32-7.43); Venous Blood Gas pO2 114 mmHg (30-50)
[2024-07-22 06:00] VITALS: BMI 28.7
[2024-07-22 06:00] LABS: Venous Blood Gas pCO2 73 mmHg (35-48)
[2024-07-22 06:11] LABS: Hematocrit 45.9 % (39.0-52.0); Mean Corp Hgb Conc. 30.5 g/dL (33.0-37.0); Mean Corpuscular Hgb 26.7 pg (27.0-31.0); Mean Corpuscular Volume 87.6 fL (80.0-94.0); Platelet Count 304 10^3/uL (130-400); Red Blood Cell Count 5.24 10^6/uL (4.70-6.10); Red Cell Dist. Width 17.9 % (11.5-14.5); White Blood Cell Count 9.4 10^3/uL (4.8-10.8)
[2024-07-22 06:38] LABS: ALT (SGPT) 24 U/L (0-50); AST (SGOT) 37 U/L (17-59); Albumin 3.5 g/dl (3.5-5.0); Alkaline Phosphatase 92 U/L (38-126); Blood Urea Nitrogen 21 mg/dl (9-20); Calcium 9.6 mg/dl (8.4-10.2); Carbon Dioxide 38 mmol/L (22-30); Chloride 93 mmol/L (98-107); Estimated Creatinine Clearance 75 ml/min; Glucose 139 mg/dl (70-99); Potassium 3.9 mmol/L (3.5-5.1); Sodium 138 mmol/L (135-145); Total Bilirubin 0.7 mg/dl (0.2-1.3); Total Protein 6.1 g/dl (6.3-8.2); eGFR > 60.00
[2024-07-22 07:02] VITALS: BP 133/75
[2024-07-22] MEDS: SYMBICORT 80/4.5 MCG INHALER INH (07:58)
[2024-07-22] MEDS: SPIRIVA RESPIMAT 2.5 MCG INH (07:58)
--- NOTE | 2024-07-22 08:28 | W.PN.HOSP.TC ---
Addendum entered and electronically signed by Roman Tolbert MD 07/22/24 14:27:
Seen and examined. Did not understand how heart failure could cause swelling and pain in his legs. This was explained to them. States worse left leg than right leg. Rest at the heel.
NAD, resting comfortably in bed
Scleral anicteric
Moist mucous membranes, dried blood in nares
no jvd
mild b/l wheezing
Normal S1-S2 no murmurs
Soft nontender nondistended bowel sounds active
trace tp 1+
Moves extremities spontaneously
AAOx3
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
-IV increase dose 80mg BID, likely able to transition to PO in the next 24-48hrs unless cardiology recs to transition today
-Daily weights
-Follow renal function
-Monitor urinary output
-Keep K greater than 4
-Keep magnesium greater than 2
-SGLT2 inhibitor unable to provide due to PAD
-Cardiology following
Metabolic alkalosis likely contraction developing, will give dose of diamox. Repeat BMP in the AM. If HCO3 still increasing then will stop diuretics and provide 250mg-500mg bicarb BID
-s/p Diamox 500mg IV x1
-continue to monitor with repeat bmp tomorrow
Epistaxis
-Due to o2, ask nursing to humidifiy air, augmented blow related to OAC and antiplt
-Resolved
-Resume eliquis today, then resume plavix tomorrow if no further occurance
Low clinical suspicion for cellulitis, strange to be in both LE, also, without white count and afebrile. SUspect this is from HF. WIll continue to monitor.
PAD being followed by vascular surgery Doppler pulses
CAD s/p CABG continue DAPT statin and beta-du isosorbide mononitrate
COPD continue MDIs, without evidence of acute bronchospasm, maintain SpO2 greater than 88%
Active smoker NRT
MARIJA noncompliant CPAP
Consult PT/OT to assess ambulation as he has been deconditioned and critically ill.
Likely will need SNF
If PT/OT rec home then will check/assess for home o2 needs
Original Note:
Today's Communication/Plan
-
We will continue to diurese the patient as there is more fluid to get off of him. We will continue to monitor his kidney function for rising creatinine. Ensure that potassium stays greater than 4 and magnesium greater than 2. Patient education
provided about home oxygen.
Assessment / Plan
Assessment / Plan
HPI: Patient is a 73-year-old male with a past medical history of peripheral artery disease s/p right femoral bypass last year, hepatitis C, CAD s/p CABG, CHF, COPD, hypertension, diabetes, obstructive sleep apnea, hyperlipidemia who presented with
increased swelling of his left lower extremity for the past few weeks. He has had swelling of his left lower extremity with redness. He had marked pain of the left heel and a black marking/wound seen on the posterior aspect of his left heel. He
also reported soreness and cramping of the left calf with ambulation. He also reported that he was having increased shortness of breath with exertion. He has a chronic cough which was at baseline on his arrival. He has increased abdominal
distention and thinks that he gained a lot of weight although he did not weigh himself recently. He was recently admitted last month for CHF exacerbation. He smokes less than a half a pack of cigarettes a day and drinks beer occasionally.
Assessment/Plan:
-Acute on chronic HFmrEF exacerbation, NYHA class III-IV, [id number] score of 8
Ejection fraction at 50% on echo from last month. Hypokinetic inferior wall
Cardiology consulted -continues to follow
IV Lasix increased to mid 80 mg twice daily as the patient appears to be volume overloaded -patient's weight is over 20 pounds increased when compared to his last admission. Dry weight was 193 pounds on 06/13/2024. Weight on 07/16/2024 was 223
pounds. Weight on 07/18/2024 is 213.25 pounds. Weight on 07/19/2024 is 214.19 pounds. Weight on 07/20/2024 is 209.19 pounds.
Check and I's and O's with daily weights
Most recent chest x-ray had no pertinent findings
Cardiac BNP at 12,000 on admission
Troponin 0.106 on admission -troponins currently at 0.090 trending downwards on 07/18/2024 - stable
Monitor BUN and creatinine
Keep potassium >4 -potassium found to be 3.9 on 07/22/2024�repleted
Keep magnesium >2, magnesium found to be 1.6 on 07/18/2024 -repleted -given another additional IV dose of magnesium
Due to the patient's past history of peripheral artery disease and osteomyelitis, the patient is not a good candidate for an SGLT2 inhibitor
On 5 AM of 07/19/2024 the patient was noted to have a rhythm change -an EKG was conducted showing atrial flutter with variable AV block. Repeat EKG in the morning showed that the patient converted back to sinus rhythm.
Cardiology has transitioned from Lopressor to Toprol at a higher dose given PAF/NSVT
Eliquis 5 mg twice daily started and aspirin discontinued. Lovenox continued.
Tubigrip or Mayur wrap for compression of legs to assist pushing fluid back into the intravascular space for diuresis
Recommend outpatient follow-up for chronic limb ischemia after discharge.
-Epistaxis: Resolved
Patient had an episode of epistaxis early in the morning on 07/21/2024 likely due to mucous drying from nasal cannula oxygen
Humidified oxygen started
Plavix continues to be held
Eliquis restarted
-Chronic ischemia of the left lower extremity
-Left heel pain with noted black area
-Peripheral artery disease s/p right femoral bypass
Wound care consult ordered
X-ray of left heel ordered
Continue statin and beta-du with isosorbide mononitrate
Podiatry consult appreciated. By their assessment they believe the patient is appropriate to be followed in the outpatient setting.
Prior bilateral arterial study conducted on 06/13/2024 showed left common femoral artery occlusion, profunda femoris artery was patent, heavily calcified plaque within the left popliteal artery, and low velocity flow measuring 13 cm/s.
Infrapopliteal disease may also have been present.
-History of COPD:
Patient used to be followed by pulmonology at [place] but he has not been seen in many years.
He continues to use Trelegy and albuterol
Continue current treatment
Patient currently saturating at 93% on 2 L of oxygen -will possibly need home O2
VBG ordered -results from 07/22/2024 show a VBG pH of 7.39, VBG pCO2 73, VBG pO2 of 114, VBG bicarb of 44.2, VBG O2 saturation of 99.9, and VBG base excess of 15.3
- Obstructive sleep apnea:
Patient noncompliant with CPAP
-Nicotine dependence:
Patient is an active smoker, but he admits to greatly reducing the amount he smokes over the years
-History of bedbugs:
No tracking bite abreu noted
Considering moving to private room to ensure therapeutic milieu for all
DVT prophylaxis: Eliquis
DNR status
Data:
- Chest x-ray conducted on 07/16/2024:
The lungs appear clear. Cardiac silhouette size is top normal with no evidence for pulmonary edema or pleural effusion.
- Abdominal CT conducted on 07/16/2024:
1. Patent right femoral to posterior tibial arterial bypass graft.
2. Chronic complete occlusion of the entire right superficial femoral artery with reconstitution at the level of the popliteal artery.
3. Chronic occlusion of the left superficial femoral artery at its origin with some reconstitution of flow at the level of the severely stenotic distal left SFA and popliteal artery.
4. Patent stent in the left common femoral artery/profunda femoris.
5. Severe aortobiiliac calcified atherosclerosis.
6. Infrarenal abdominal aortic aneurysm measuring 3.6 cm diameter.
7. Mild abdominopelvic ascites.
8. Chronic findings, as detailed above.
-Left heel x-ray conducted on 07/17/2024:
No plain film evidence of osteomyelitis. Small calcaneal osteophytes.
Anticipated Discharge: > 48 hours
Subjective/Interval History
-
Date of Service: July 22, 2024
Met with patient at the bedside. He believes that he is doing better and was seen in his room standing without difficulty. The swelling in his left leg is greatly reduced and the skin is not nearly as tense. Had a discussion with the patient
about the need for home oxygen following discharge and safety measures he must take if he is unable to quit smoking while using his oxygen. Patient appears unhappy that he may need home oxygen but appears to understand that for the time being it is
for the best.
Objective Data
-
Labs:
Laboratory Results
07/22/24
05:46
WBC 9.4
Hgb 14.0
Hct 45.9
Plt Count 304
Sodium 138
Potassium 3.9
Chloride 93 L
Carbon Dioxide 38 H
BUN 21 H
Creatinine 0.9
Glucose 139 H
Calcium 9.6
Total Bilirubin 0.7
AST 37
ALT 24
Alkaline Phosphatase 92
Vital Signs:
Vital Signs
Temp Pulse Resp BP Pulse Ox
98.8 F 63 18 133/75 98
07/22/24 07:02 07/22/24 07:02 07/22/24 07:02 07/22/24 07:02 07/22/24 07:02
I&O
07/21/24 07/22/24 07/23/24
06:59 06:59 06:59
Intake Total 1560 / 1560 1440 / 1440
Output Total 4025 / 4025 2825 / 2825
Balance -2465 / -2465 -1385 / -1385
Review of Systems
-
History Source: Patient
All other systems: Reviewed and negative
Constitutional: Reports No Symptoms
Respiratory: Reports Cough and Wheezing
Cardiac: Reports No Symptoms
Abdomen/GI: Reports No Symptoms
Breast: Reports No Symptoms
Genitourinary: Reports No Symptoms
Musculoskeletal: Reports Edema (Left lower leg edema)
Skin: Reports No Symptoms
Neuro: Reports Other (Mentioned ongoing issues with forgetfulness and short attention span)
Endocrine: Reports No Symptoms
Hematologic / Lymphatic: Reports No Symptoms
Psych: Reports Other (Patient was briefly sad after explaining the need for home oxygen upon discharge. Upon further counseling he returned to his calm baseline.)
Physical Exam
-
General: Well Developed, Well Nourished, No Apparent Distress and Comfortable
HEENT: Normocephalic, Atraumatic and Moist Mucous Membranes
Respiratory: Crackles and Decreased Breath Sounds (Decreased breath sounds in the lower lung patton bilaterally.)
Cardiac: Regular Rhythm and S1/S2
Breast: Deferred by me
GI: Soft, Nontender, Nondistended and Normal Bowel Sounds
Rectal: Deferred by Provider
Genito-urinary: Deferred by me
Musculoskeletal: Edema, Left Lower Extrem (1.5+)
Skin: Warm, Dry and Ulcers (Venous stasis ulcer of the left lower limb near the heel posteriorly.)
Neuro: Awake, Alert, Oriented and AO x 3
Psych: Other (Forgetful)
[2024-07-22] MEDS: DESENEX/MITRAZOL/ZEASORB 1 APPLIC TOPICAL ×2 (09:51→20:25)
[2024-07-22] MEDS: HYDROPHOR 1 APPLIC TOPICAL (09:52)
[2024-07-22] MEDS: FOLVITE 1 MG PO (09:53)
[2024-07-22] MEDS: PACERONE 200 MG PO ×3 (09:53→21:48)
[2024-07-22] MEDS: IMDUR (EXTENDED RELEASE) 60 MG PO (09:53)
[2024-07-22] MEDS: ZESTRIL 40 MG PO (09:53)
[2024-07-22] MEDS: NICODERM TRANSDERMAL 7 MG TRANSDERM (09:54)
[2024-07-22] MEDS: TOPROL XL 50 MG PO ×2 (09:54→20:27)
[2024-07-22] MEDS: LASIX 80 MG IV (09:56)
[2024-07-22] MEDS: AFRIN NASAL SPRAY NASAL ×2 (10:02→20:26)
[2024-07-22 11:42] VITALS: BP 128/61
--- NOTE | 2024-07-22 13:54 | W.PN.CARDCBS ---
Today's Communication / Plan
-
Remains in sinus rhythm. Continue amiodarone. Will decrease to 200 mg p.o. twice daily.
Continue Toprol. Continue Eliquis.
Nosebleeds have resolved. If no further nosebleeds in a.m. would restart Plavix. Continue Eliquis.
He has diuresed very well. Would switch over to Lasix 40 mg p.o. twice daily.
Impression / Plan
-
Assessment:
Acute heart failure likely heart failure with mildly reduced ejection fraction
CAD s/p remote CABG at [facility] and PCI at [place]
History of CVA 2010
NSVT
Paroxysmal atrial fibrillation/flutter
PAD, right femoral endarterectomy with saphenous vein angioplasty and right femoral to PT bypass August 04, 2023, Dr. Riley
Poor medical compliance
Osteomyelitis toe
COPD
HTN
HLD
DM2
Ongoing tobacco use
h/o bedbugs 06/17 admission
Recent cardiac testing:
- Echo 06/12/2024: EF 50%, basal inferior wall hypokinetic on parasternal short axis views, RV mildly dilated, mildly dilated RA, no significant valvular disease noted
- Echocardiogram July 28, 2023 finds normal LV size and function with LVEF in the low normal range estimated at 51% with basal to mid inferior wall severe hypokinesis. No significant valvular disease.
- Dobutamine nuclear stress test July 29, 2023 finds large inferior and basal inferior septal infarct without stephanie-infarct ischemia. Baseline LVEF 43%
Recommendations:
-weight down to 194. Would switch IV Lasix to 40 mg p.o. twice daily. Creatinine remained stable at 0.9.
-CHF education. Discussed 48 ounce fluid restriction and 2 g sodium restriction with patient
-Remains in sinus rhythm. Cont Amio 200mg po tid and Toprol
-[id number] score of 7.
-Nosebleeds have resolved. Continue Eliquis. Okay to restart Plavix in the next 24 to 48 hours if no further nosebleeds.
-EF 50%. Continue lisinopril, Imdur.
-Not felt to be candidate for SGLT2 inhibitor given history of PAD and osteomyelitis
-continue LE wound care. vascular following. tubigrips ordered
-recent echo 05/2024 with results as above
-trops flat at 0.09 range, suspected nonischemic myocardial injury. no CP. consider eventual ischemic evaluation prior to DC vs as OP - last was dobutamine stress test 08/16: large inferior and basal inferior septal infarct without ischemia, EF 43%.
continue statin
-smoking cessation
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
Subjective
Date of Service: July 22, 2024
no new nosebleeds. Breathing has improved. He has diuresed well.
Objective
Labs:
07/22/24 05:46
07/22/24 05:46
Labs
Hgb 14.0 g/dL (13.0-18.0) 07/22/24 05:46
Hct 45.9 % (39.0-52.0) 07/22/24 05:46
Plt Count 304 10^3/uL (130-400) 07/22/24 05:46
Sodium 138 mmol/L (135-145) 07/22/24 05:46
Potassium 3.9 mmol/L (3.5-5.1) 07/22/24 05:46
BUN 21 mg/dl (9-20) H 07/22/24 05:46
Creatinine 0.9 mg/dL (0.7-1.3) 07/22/24 05:46
Glucose 139 mg/dl (70-99) H 07/22/24 05:46
Vital Signs and I&O:
Vital Signs
Temp Pulse Resp BP Pulse Ox
97.6 F 63 18 128/61 94
07/22/24 11:42 07/22/24 11:42 07/22/24 11:42 07/22/24 11:42 07/22/24 11:42
Vital Signs
Temp Pulse Resp BP Pulse Ox
97.6 F 63 18 128/61 94
07/22/24 11:42 07/22/24 11:42 07/22/24 11:42 07/22/24 11:42 07/22/24 11:42
Intake & Output
07/20/24 07/21/24 07/22/24 07/23/24
06:59 06:59 06:59 06:59
Intake Total 720 / 720 1560 / 1560 1440 / 1440
Output Total 1650 / 1650 4025 / 4025 2825 / 2825
Balance -930 / -930 -2465 / -2465 -1385 / -1385
Physical Exam
Physical Exam
GEN: No distress, awake, Ox3
HEENT: supple, anicteric, mmm
LUNGS: Scattered rhonchi
CV: Reg, S1/S2, 1/6 syst LSB, no gallop
ABD: soft, BS+, NT/ND
EXT: No edema
NEURO: Gross non-focal
SKIN: No rash
[2024-07-22] MEDS: KLOR-CON 20 MEQ PO (14:02)
[2024-07-22 15:47] VITALS: BP 109/52
[2024-07-22] MEDS: LASIX 40 MG PO (17:11)
[2024-07-22 17:35] LABS: Magnesium 1.8 mg/dl (1.6-2.3)
--- NOTE | 2024-07-22 18:00 | PTCARENOTE ---
1600 Noted on heart monitor, pt had brief episode increase heart rhythm. Checked pt, pt alert watching T.V., denies chest pain.
[place]el[place] text Dr Kurtz and Dr Diya Tolbert. Mag level ordered, continue to monitor pt closely.
[2024-07-22] MEDS: MAGNESIUM SULFATE 50 IV (18:33)
[2024-07-22 19:00] VITALS: BP 108/56
[2024-07-22] MEDS: SYMBICORT 80/4.5 MCG INHALER 2 PUFF INH (19:42)
[2024-07-22] MEDS: ELIQUIS 5 MG PO (20:26)
[2024-07-22] MEDS: LIPITOR 80 MG PO (21:52)
[2024-07-22 23:11] VITALS: BP 128/61
[2024-07-23 03:13] VITALS: BP 120/53
--- NOTE | 2024-07-23 07:06 | W.PN.HOSP.TC ---
Addendum entered and electronically signed by Roman Tolbert MD 07/23/24 13:10:
Seen and examined. No new complaints. no acute overnight events
NAD, resting comfortably in bed
Scleral anicteric
Moist mucous membranes, dried blood in nares
no jvd
mild b/l wheezing
Normal S1-S2 no murmurs
Soft nontender nondistended bowel sounds active
No pitting edema, LLE over healing ulcer red, without tenderness nor warmth
Moves extremities spontaneously
AAOx3
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
-IV increase dose 80mg BID, likely able to transition to PO in the next 24-48hrs unless cardiology recs to transition today
-Daily weights
-Follow renal function
-Monitor urinary output
-Keep K greater than 4
-Keep magnesium greater than 2
-SGLT2 inhibitor unable to provide due to PAD
-Cardiology following
Metabolic alkalosis likely contraction developing, will give dose of diamox. Repeat BMP in the AM. If HCO3 still increasing then will stop diuretics and provide 250mg-500mg bicarb BID
-s/p Diamox 500mg IV x1
-continue to monitor with repeat bmp tomorrow
Epistaxis
-Due to o2, ask nursing to humidifiy air, augmented blow related to OAC and antiplt
-Resolved
-Resume eliquis today, then resume plavix tomorrow if no further occurance
Chronic venous stasis
-Compression stocking
-Local wound care
Low clinical suspicion for cellulitis, strange to be in both LE, also, without white count and afebrile. SUspect this is from HF. WIll continue to monitor.
PAD being followed by vascular surgery Doppler pulses
CAD s/p CABG continue DAPT statin and beta-du isosorbide mononitrate
COPD continue MDIs, without evidence of acute bronchospasm, maintain SpO2 greater than 88%
Active smoker NRT
MARIJA noncompliant CPAP
Consult PT/OT to assess ambulation as he has been deconditioned and critically ill.
Likely will need SNF
If PT/OT rec home then will check/assess for home o2 needs
Original Note:
Today's Communication/Plan
-
Patient has remained in sinus rhythm all day. Patient is approaching his normal dry weight. Continue to monitor creatinine as we are likely approaching the end of diuresis. Patient will likely be sent home on home O2 and will need a referral for
his supply. PT OT eval will be prepared prior to discharge.
Assessment / Plan
Assessment / Plan
HPI: Patient is a 73-year-old male with a past medical history of peripheral artery disease s/p right femoral bypass last year, hepatitis C, CAD s/p CABG, CHF, COPD, hypertension, diabetes, obstructive sleep apnea, hyperlipidemia who presented with
increased swelling of his left lower extremity for the past few weeks. He has had swelling of his left lower extremity with redness. He had marked pain of the left heel and a black marking/wound seen on the posterior aspect of his left heel. He
also reported soreness and cramping of the left calf with ambulation. He also reported that he was having increased shortness of breath with exertion. He has a chronic cough which was at baseline on his arrival. He has increased abdominal
distention and thinks that he gained a lot of weight although he did not weigh himself recently. He was recently admitted last month for CHF exacerbation. He smokes less than a half a pack of cigarettes a day and drinks beer occasionally.
Assessment/Plan:
-Acute on chronic HFmrEF exacerbation, NYHA class III-IV, [id number] score of 8
Ejection fraction at 50% on echo from last month. Hypokinetic inferior wall
Cardiology consulted -continues to follow
Cardiology has reduced the patient's amiodarone to 200 mg
IV Lasix has been replaced with 40 mg Lasix p.o. twice daily. -patient's weight was over 20 pounds increased when compared to his last admission. Dry weight was 193 pounds on 06/13/2024. Weight on 07/16/2024 was 223 pounds. Weight on 07/18/2024 is
213.25 pounds. Weight on 07/19/2024 is 214.19 pounds. Weight on 07/20/2024 is 209.19 pounds. Weight on 07/23/2024 is 194.3 pounds. Patient appears to be nearing his baseline dry weight.
Check and I's and O's with daily weights
Most recent chest x-ray had no pertinent findings
Cardiac BNP at 12,000 on admission
Troponin 0.106 on admission -troponins currently at 0.090 trending downwards on 07/18/2024 - stable
Monitor BUN and creatinine
Keep potassium >4 -potassium found to be 3.9 on 07/22/2024epleted -potassium is 4.3 on 07/23/2024 within normal limits
Keep magnesium >2, magnesium found to be 1.6 on 07/18/2024 -repleted -given another additional IV dose of magnesium -magnesium is 2 on 07/23/2024 returning it back within normal limits
Due to the patient's past history of peripheral artery disease and osteomyelitis, the patient is not a good candidate for an SGLT2 inhibitor
On 5 AM of 07/19/2024 the patient was noted to have a rhythm change -an EKG was conducted showing atrial flutter with variable AV block. Repeat EKG in the morning showed that the patient converted back to sinus rhythm.
Cardiology has transitioned from Lopressor to Toprol at a higher dose given PAF/NSVT
Eliquis 5 mg twice daily started and aspirin discontinued. Lovenox continued.
Tubigrip or Mayur wrap for compression of legs to assist pushing fluid back into the intravascular space for diuresis
Recommend outpatient follow-up for chronic limb ischemia after discharge.
-Epistaxis: Resolved
Patient had an episode of epistaxis early in the morning on 07/21/2024 likely due to mucous drying from nasal cannula oxygen
Humidified oxygen started
Plavix Plavix restarted
Continue Eliquis
-Chronic ischemia of the left lower extremity
-Left heel pain with noted black area
-Peripheral artery disease s/p right femoral bypass
Wound care consult ordered
X-ray of left heel ordered
Continue statin and beta-du with isosorbide mononitrate
Podiatry consult appreciated. By their assessment they believe the patient is appropriate to be followed in the outpatient setting.
Prior bilateral arterial study conducted on 06/13/2024 showed left common femoral artery occlusion, profunda femoris artery was patent, heavily calcified plaque within the left popliteal artery, and low velocity flow measuring 13 cm/s.
Infrapopliteal disease may also have been present.
-History of COPD:
Patient used to be followed by pulmonology at [place] but he has not been seen in many years.
He continues to use Trelegy and albuterol
Continue current treatment
Patient currently saturating at 93% on 2 L of oxygen -will possibly need home O2
VBG ordered -results from 07/22/2024 show a VBG pH of 7.39, VBG pCO2 73, VBG pO2 of 114, VBG bicarb of 44.2, VBG O2 saturation of 99.9, and VBG base excess of 15.3
- Obstructive sleep apnea:
Patient noncompliant with CPAP
-Nicotine dependence:
Patient is an active smoker, but he admits to greatly reducing the amount he smokes over the years
-History of bedbugs:
No tracking bite abreu noted
Considering moving to private room to ensure therapeutic milieu for all
DVT prophylaxis: Eliquis
DNR status
Data:
- Chest x-ray conducted on 07/16/2024:
The lungs appear clear. Cardiac silhouette size is top normal with no evidence for pulmonary edema or pleural effusion.
- Abdominal CT conducted on 07/16/2024:
1. Patent right femoral to posterior tibial arterial bypass graft.
2. Chronic complete occlusion of the entire right superficial femoral artery with reconstitution at the level of the popliteal artery.
3. Chronic occlusion of the left superficial femoral artery at its origin with some reconstitution of flow at the level of the severely stenotic distal left SFA and popliteal artery.
4. Patent stent in the left common femoral artery/profunda femoris.
5. Severe aortobiiliac calcified atherosclerosis.
6. Infrarenal abdominal aortic aneurysm measuring 3.6 cm diameter.
7. Mild abdominopelvic ascites.
8. Chronic findings, as detailed above.
-Left heel x-ray conducted on 07/17/2024:
No plain film evidence of osteomyelitis. Small calcaneal osteophytes.
Anticipated Discharge: 24 - 48 hours
Subjective/Interval History
-
Date of Service: July 23, 2024
Met with patient at the bedside. He continues to make steady progress. He complains of additional itching near the venous stasis ulcer on his left lower limb. Markedly reduced swelling and can walk on his feet. Had a discussion with the patient
about the possible need for discharge to custodial facility for rehab. He did not have any nosebleeds today.
Objective Data
-
Labs:
Laboratory Results
07/23/24
05:33
WBC Pending
Hgb Pending
Hct Pending
Plt Count Pending
Sodium Pending
Potassium Pending
Chloride Pending
Carbon Dioxide Pending
BUN Pending
Creatinine Pending
Glucose Pending
Calcium Pending
Total Bilirubin Pending
AST Pending
ALT Pending
Alkaline Phosphatase Pending
Vital Signs:
Vital Signs
Temp Pulse Resp BP Pulse Ox
97.9 F 66 16 120/53 98
07/23/24 03:13 07/23/24 03:13 07/23/24 03:13 07/23/24 03:13 07/23/24 03:13
I&O
07/22/24 07/23/24 07/24/24
06:59 06:59 06:59
Intake Total 1440 / 1440 1130 / 1130
Output Total 2825 / 2825 3450 / 3450
Balance -1385 / -1385 -2320 / -2320
Review of Systems
-
History Source: Patient
Constitutional: Reports No Symptoms
EENT: Reports No Symptoms Reported
Respiratory: Reports Cough
Cardiac: Reports No Symptoms
Abdomen/GI: Reports No Symptoms
Breast: Reports No Symptoms
Genitourinary: Reports No Symptoms
Skin: Reports Itching (Itching and soreness on the left lower limb near a venous stasis ulcer on the posterior side of his foot near the heel.)
Psych: Reports Other (Forgetful)
Physical Exam
-
General: Well Developed, Well Nourished, No Apparent Distress and Comfortable
HEENT: Normocephalic, Atraumatic and Moist Mucous Membranes
Respiratory: Crackles (Bilaterally in the mid to lower lung field) and Decreased Breath Sounds (Decreased breath sounds near the lung bases.)
Cardiac: Regular Rhythm and S1/S2
Breast: Deferred by me
GI: Soft, Nontender, Nondistended and Normal Bowel Sounds
Skin: Warm, Dry and Ulcers (Venous stasis ulcer located on the left lower limb near the posterior side of the foot posterior and lateral to the heel.)
Neuro: Awake, Alert, Oriented and AO x 3
Psych: Calm and Other (Often needs reminders and appears to be forgetful)
[2024-07-23 07:23] LABS: Hematocrit 47.4 % (39.0-52.0); Hemoglobin 14.2 g/dL (13.0-18.0); Mean Corpuscular Hgb 26.1 pg (27.0-31.0); Mean Platelet Volume 10.3 fL (7.4-10.4); Platelet Count 348 10^3/uL (130-400); Red Blood Cell Count 5.45 10^6/uL (4.70-6.10); Red Cell Dist. Width 18.4 % (11.5-14.5); White Blood Cell Count 9.3 10^3/uL (4.8-10.8)
[2024-07-23] MEDS: SPIRIVA RESPIMAT 2.5 MCG INH (07:37)
[2024-07-23] MEDS: SYMBICORT 80/4.5 MCG INHALER INH ×2 (07:37→19:53)
[2024-07-23 07:57] VITALS: BP 126/60
[2024-07-23 08:01] LABS: ALT (SGPT) 27 U/L (0-50); AST (SGOT) 36 U/L (17-59); Albumin 3.8 g/dl (3.5-5.0); Alkaline Phosphatase 96 U/L (38-126); Blood Urea Nitrogen 21 mg/dl (9-20); Calcium 9.7 mg/dl (8.4-10.2); Carbon Dioxide 37 mmol/L (22-30); Chloride 93 mmol/L (98-107); Estimated Creatinine Clearance 68 ml/min; Glucose 146 mg/dl (70-99); Potassium 4.3 mmol/L (3.5-5.1); Sodium 139 mmol/L (135-145); Total Bilirubin 0.6 mg/dl (0.2-1.3); Total Protein 6.4 g/dl (6.3-8.2); eGFR > 60.00
[2024-07-23] MEDS: IMDUR (EXTENDED RELEASE) 60 MG PO (08:13)
[2024-07-23] MEDS: ZESTRIL 40 MG PO (08:13)
[2024-07-23] MEDS: TOPROL XL 50 MG PO ×2 (08:14→19:55)
[2024-07-23] MEDS: ELIQUIS 5 MG PO ×2 (08:14→19:55)
[2024-07-23] MEDS: FOLVITE 1 MG PO (08:14)
[2024-07-23] MEDS: NICODERM TRANSDERMAL 7 MG TRANSDERM (08:14)
[2024-07-23] MEDS: PACERONE 200 MG PO (08:14)
[2024-07-23] MEDS: LASIX 40 MG PO ×2 (08:14→16:27)
[2024-07-23] MEDS: HYDROPHOR 1 APPLIC TOPICAL (08:15)
[2024-07-23] MEDS: DESENEX/MITRAZOL/ZEASORB 1 APPLIC TOPICAL ×2 (08:15→19:54)
[2024-07-23] MEDS: AFRIN NASAL SPRAY 30 SPRAYS NASAL (08:15)
--- NOTE | 2024-07-23 08:47 | W.PN.CARDCBS ---
Today's Communication / Plan
-
Appears euvolemic and wt is stable and down to 194 on Jul 22
Cont oral lasix 40 mg BID. Cr has been stable
Cont HF education. We have again discussed 48 ounce fluid restriction and 2 g sodium restriction with patient
-Compliance is a very big issue
Remains sinus.
-Cont Amiodarone but reduce to 200 mg po daily after having received TID starting Jul 20.
-Cont Toprol.
-Cont Eliquis for [id number] score of 7.
Nosebleeds have resolved. Continue Eliquis and resume Plavix in the next 24 hours if no further nosebleeds.
Outpt cardiac follow up
Please recall if needed
Impression / Plan
-
.
Parts Person: Dr Riggs
Impression:
Acute heart failure likely heart failure with mildly reduced ejection fraction
CAD s/p remote CABG at [facility] and PCI at [place]
History of CVA 2010
NSVT
Paroxysmal atrial fibrillation/flutter
PAD, right femoral endarterectomy with saphenous vein angioplasty and right femoral to PT bypass August 04, 2023, Dr. Riley
Poor medical compliance
Osteomyelitis toe
COPD
HTN
HLD
DM2
Ongoing tobacco use
Hx [facility] 06/17 admission
Recent cardiac testing:
- Echo 06/12/2024: EF 50%, basal inferior wall hypokinetic on parasternal short axis views, RV mildly dilated, mildly dilated RA, no significant valvular disease noted
- Echocardiogram July 28, 2023 finds normal LV size and function with LVEF in the low normal range estimated at 51% with basal to mid inferior wall severe hypokinesis. No significant valvular disease.
- Dobutamine nuclear stress test July 29, 2023 finds large inferior and basal inferior septal infarct without stephanie-infarct ischemia. Baseline LVEF 43%
Plan:
Appears euvolemic and wt is stable and down to 194 on Jul 22
Cont oral lasix 40 mg BID. Cr has been stable
Cont HF education. We have again discussed 48 ounce fluid restriction and 2 g sodium restriction with patient
-Compliance is a very big issue
Remains sinus.
-Cont Amiodarone but reduce to 200 mg po daily after having received TID starting Jul 20.
-Cont Toprol.
-Cont Eliquis for [id number] score of 7.
Nosebleeds have resolved. Continue Eliquis and resume Plavix in the next 24 hours if no further nosebleeds.
EF is preserved at 50%.
-Continue lisinopril, Imdur.
-Not felt to be candidate for SGLT2 inhibitor given history of PAD and osteomyelitis
Continue LE wound care.
-Vascular evaluated.
-tubigrips as tolerated
Cont medical therapy for nonischemic myocardial injury. no CP. Could consider eventual ischemic evaluation as oupt,
-last was dobutamine stress test 08/16: large inferior and basal inferior septal infarct without ischemia, EF 43%.
-cont statin
Smoking cessation is a must
Will arrange outpt cardiac follow up Please recall if needed.
Progress Note - Parts Person
Subjective
Date of Service: July 23, 2024
Pt seen and examined. No complaints. No chest pain or shortness of breath.
Objective
Labs:
07/23/24 05:33
07/23/24 05:33
Labs
Hgb 14.2 g/dL (13.0-18.0) 07/23/24 05:33
Hct 47.4 % (39.0-52.0) 07/23/24 05:33
Plt Count 348 10^3/uL (130-400) 07/23/24 05:33
Sodium 139 mmol/L (135-145) 07/23/24 05:33
Potassium 4.3 mmol/L (3.5-5.1) 07/23/24 05:33
BUN 21 mg/dl (9-20) H 07/23/24 05:33
Creatinine 1.0 mg/dL (0.7-1.3) 07/23/24 05:33
Glucose 146 mg/dl (70-99) H 07/23/24 05:33
Vital Signs and I&O:
Vital Signs
Temp Pulse Resp BP Pulse Ox
98.5 F 68 18 126/60 99
07/23/24 07:57 07/23/24 07:57 07/23/24 07:57 07/23/24 07:57 07/23/24 07:57
Vital Signs
Temp Pulse Resp BP Pulse Ox
98.5 F 68 18 126/60 99
07/23/24 07:57 07/23/24 07:57 07/23/24 07:57 07/23/24 07:57 07/23/24 07:57
Intake & Output
07/21/24 07/22/24 07/23/24 07/24/24
06:59 06:59 06:59 06:59
Intake Total 1560 / 1560 1440 / 1440 1130 / 1130
Output Total 4025 / 4025 2825 / 2825 3450 / 3450
Balance -2465 / -2465 -1385 / -1385 -2320 / -2320
Physical Exam
Physical Exam
General: No acute distress, AAOX3
Neck: Negative JVD
Heart: Regular, Negative S3 positive S1/S2, Negative S4, No murmur
Lungs: CTA b/l, negative wheezes/rales/rhonchi
Abd: Positive BS, NT/ND, neg rebound/rigidity/guarding
Ext: Negative cyanosis/clubbing/edema
Skin: venous stasis skin changes with some erthemia
Neuro: nonfocal
[2024-07-23 11:12] VITALS: BP 122/61
[2024-07-23 15:05] VITALS: BP 105/55
[2024-07-23 19:10] VITALS: BP 109/66
[2024-07-23] MEDS: AFRIN NASAL SPRAY 2 SPRAYS NASAL (19:54)
[2024-07-23] MEDS: LIPITOR 80 MG PO (19:55)
[2024-07-23 22:47] VITALS: BP 138/73
[2024-07-24 06:00] VITALS: BMI 27.4
--- NOTE | 2024-07-24 07:26 | W.PN.HOSP.TC ---
Addendum entered and electronically signed by Rachid Shea MD 07/25/24 00:55:
Attending Addendum:
I saw and evaluated the patient. I reviewed the resident�s note and agree with findings and plan as documented in the resident�s note. Sub: 'I dont need to wear this o2 all the time. I jut want to go home and do what i want.' Full 12 point ROS
reviewed and negative except as documented Exam: Vitals reviewed in chart GEN-nad heart RRR lungs clear abd soft LE no edema
AE HFprEF
-Daily weights
-Follow renal function
-Monitor urinary output
-Keep K greater than 4
-Keep magnesium greater than 2
-SGLT2 inhibitor unable to provide due to PAD
-Cardiology rec continue lasix PO BID on DC - stable for DC
Chronic Hypoxemic Respiratory Failure-
- home code
- home o2 ordered
H/O Non compliance
- poor prognosis
- high risk readmission
- counseled re compliance
Atrial Fibrillation
- cont amiodarone at tapered dose
- cont eliquis metoprolol
Metabolic alkalosis/Respiratory Acidosis
-multifactorial
-s/p Diamox 500mg IV x1
-stable
- wean o2 for sats 88-92
- f/u as OP
Epistaxis
resolved
-Due to o2, ask nursing to humidifiy air, augmented blow related to OAC and antiplt
-Resolved
-Resume eliquis resume plavix tomorrow
Chronic venous stasis
-Compression stocking
-Local wound care
PAD- right fem bypass
CAD s/p CABG continue plavix statin and beta-du isosorbide mononitrate
COPD continue MDIs, without evidence of acute bronchospasm, maintain SpO2 88-92%
tobacco abuse- advised to quit NRT
MARIJA noncompliant CPAP
Dispo- DC home with HC refusing to go to facility
Time spent coordinating care, DC planning, review of DC plan of care with resident, transition of care, review of records, med rec/scripts sent electronically, consults, notes, d/w consultants, nursing, and CM� 36 mins
Original Note:
Today's Communication/Plan
-
Patient appears to be at his baseline and is euvolemic. Lungs sound much clearer with diminished sounds at the lung bases consistent with COPD. Plan to discharge home with O2 following home O2 evaluation and clearance from cardiology. Patient
should be provided education on the importance of fluid restriction, salt reduction, and smoking cessation. He will continue cardiology medications that were recommended by cardiology.
Assessment / Plan
Assessment / Plan
HPI: Patient is a 73-year-old male with a past medical history of peripheral artery disease s/p right femoral bypass last year, hepatitis C, CAD s/p CABG, CHF, COPD, hypertension, diabetes, obstructive sleep apnea, hyperlipidemia who presented with
increased swelling of his left lower extremity for the past few weeks. He has had swelling of his left lower extremity with redness. He had marked pain of the left heel and a black marking/wound seen on the posterior aspect of his left heel. He
also reported soreness and cramping of the left calf with ambulation. He also reported that he was having increased shortness of breath with exertion. He has a chronic cough which was at baseline on his arrival. He has increased abdominal
distention and thinks that he gained a lot of weight although he did not weigh himself recently. He was recently admitted last month for CHF exacerbation. He smokes less than a half a pack of cigarettes a day and drinks beer occasionally.
Assessment/Plan:
-Acute on chronic HFmrEF exacerbation, NYHA class III-IV, [id number] score of 8:
Ejection fraction at 50% on echo from last month. Hypokinetic inferior wall
Cardiology consulted -continues to follow
Continue amiodarone 200 mg
IV Lasix has been replaced with 40 mg Lasix p.o. twice daily. -patient's weight was over 20 pounds increased when compared to his last admission. Dry weight was 193 pounds on 06/13/2024. Weight on 07/16/2024 was 223 pounds. Weight on 07/18/2024 is
213.25 pounds. Weight on 07/19/2024 is 214.19 pounds. Weight on 07/20/2024 is 209.19 pounds. Weight on 07/23/2024 is 194.3 pounds. Weight on 07/24/2024 is 185.19lbs. Patient appears to be euvolemic.
Continue to check and I's and O's with daily weights
Most recent chest x-ray had no pertinent findings
Cardiac BNP at 12,000 on admission
Troponin 0.106 on admission -troponins currently at 0.090 trending downwards on 07/18/2024 - stable
Monitor BUN and creatinine
Keep potassium >4 -potassium found to be 3.9 on 07/22/2024epleted -potassium is 4.4 on 07/24/2024 within normal limits
Keep magnesium >2, magnesium found to be 1.6 on 07/18/2024 -repleted -given another additional IV dose of magnesium -magnesium is 1.8 on 07/24/2024 and was repleted with magonate
Due to the patient's past history of peripheral artery disease and osteomyelitis, the patient is not a good candidate for an SGLT2 inhibitor
On 5 AM of 07/19/2024 the patient was noted to have a rhythm change -an EKG was conducted showing atrial flutter with variable AV block. Repeat EKG in the morning showed that the patient converted back to sinus rhythm.
Continue Toprol at a higher dose given PAF/NSVT
Eliquis 5 mg twice daily started and aspirin discontinued. Lovenox continued.
Tubigrip or Mayur wrap for compression of legs to assist pushing fluid back into the intravascular space for diuresis
Recommend outpatient follow-up for chronic limb ischemia after discharge.
-Epistaxis: Resolved
Patient had an episode of epistaxis early in the morning on 07/21/2024 likely due to mucous drying from nasal cannula oxygen
Humidified oxygen started
Continue Plavix
Continue Eliquis
-Chronic ischemia of the left lower extremity
-Left heel pain with noted black area
-Peripheral artery disease s/p right femoral bypass
Wound care consult ordered
X-ray of left heel ordered
Continue statin and beta-du with isosorbide mononitrate
Podiatry consult appreciated. By their assessment they believe the patient is appropriate to be followed in the outpatient setting.
Prior bilateral arterial study conducted on 06/13/2024 showed left common femoral artery occlusion, profunda femoris artery was patent, heavily calcified plaque within the left popliteal artery, and low velocity flow measuring 13 cm/s.
Infrapopliteal disease may also have been present.
Lower limb swelling has greatly reduced bilaterally. The patient appears to be at his baseline on 07/24/2024
-History of COPD:
Patient used to be followed by pulmonology at [facility] but he has not been seen in many years.
He continues to use Trelegy and albuterol
Continue home medications
Patient currently saturating at 96% on 2 L of oxygen -will possibly need home O2 -Home O2 eval order put in on 07/24/2024
VBG ordered -results from 07/22/2024 show a VBG pH of 7.39, VBG pCO2 73, VBG pO2 of 114, VBG bicarb of 44.2, VBG O2 saturation of 99.9, and VBG base excess of 15.3
- Obstructive sleep apnea:
Patient noncompliant with CPAP
-Nicotine dependence:
Patient is an active smoker, but he admits to greatly reducing the amount he smokes over the years
-History of bedbugs:
No tracking bite abreu noted
Considering moving to private room to ensure therapeutic milieu for all
DVT prophylaxis: Eliquis
DNR status
Data:
- Chest x-ray conducted on 07/16/2024:
The lungs appear clear. Cardiac silhouette size is top normal with no evidence for pulmonary edema or pleural effusion.
- Abdominal CT conducted on 07/16/2024:
1. Patent right femoral to posterior tibial arterial bypass graft.
2. Chronic complete occlusion of the entire right superficial femoral artery with reconstitution at the level of the popliteal artery.
3. Chronic occlusion of the left superficial femoral artery at its origin with some reconstitution of flow at the level of the severely stenotic distal left SFA and popliteal artery.
4. Patent stent in the left common femoral artery/profunda femoris.
5. Severe aortobiiliac calcified atherosclerosis.
6. Infrarenal abdominal aortic aneurysm measuring 3.6 cm diameter.
7. Mild abdominopelvic ascites.
8. Chronic findings, as detailed above.
-Left heel x-ray conducted on 07/17/2024:
No plain film evidence of osteomyelitis. Small calcaneal osteophytes.
Anticipated Discharge: Within 24 hours
Subjective/Interval History
-
Date of Service: July 24, 2024
Met with patient at the bedside. He states that he is doing great and anticipates being discharged soon. He believes that he is at his baseline and is very happy with how his leg swelling has reduced. Patient given education on the importance of
fluid restriction with salt reduction. Patient also counseled on the importance of cessation of smoking.
Objective Data
-
Labs:
Laboratory Results
07/24/24
06:00
WBC Pending
Hgb Pending
Hct Pending
Plt Count Pending
Sodium Pending
Potassium Pending
Chloride Pending
Carbon Dioxide Pending
BUN Pending
Creatinine Pending
Glucose Pending
Calcium Pending
Total Bilirubin Pending
AST Pending
ALT Pending
Alkaline Phosphatase Pending
Vital Signs:
Vital Signs
Temp Pulse Resp BP Pulse Ox
98.0 F 69 18 138/73 93
07/23/24 22:47 07/23/24 22:47 07/23/24 22:47 07/23/24 22:47 07/23/24 22:47
I&O
07/23/24 07/24/24 07/25/24
06:59 06:59 06:59
Intake Total 1130 / 1130 1919 / 1919
Output Total 3450 / 3450 3725 / 3725
Balance -2320 / -2320 -1805 / -1805
Review of Systems
-
History Source: Patient
All other systems: Reviewed and negative
Physical Exam
-
General: Well Developed, Well Nourished, No Apparent Distress and Comfortable
HEENT: Normocephalic, Atraumatic and Moist Mucous Membranes
Respiratory: Clear to Auscultation and Decreased Breath Sounds (Bilaterally at the lung bases)
Cardiac: Regular Rhythm and S1/S2
Breast: Deferred by me
GI: Soft, Nontender, Nondistended and Normal Bowel Sounds
Musculoskeletal: No Clubbing, No Cyanosis and No Edema
Skin: Warm, Dry, Ulcers (Venous stasis ulcer located on the left lower extremity near the posterior lateral aspect above the heel) and Other (Skin of the foot is red and markedly improved from prior presentations. )
Neuro: Awake, Alert, Oriented and AO x 3
Psych: Calm and Other (Forgetful)
[2024-07-24 07:27] VITALS: BP 143/82
[2024-07-24] MEDS: SPIRIVA RESPIMAT 2.5 MCG 2 PUFF INH (07:48)
[2024-07-24] MEDS: SYMBICORT 80/4.5 MCG INHALER 2 PUFF INH (07:48)
[2024-07-24 07:58] LABS: Hematocrit 46.7 % (39.0-52.0); Hemoglobin 13.8 g/dL (13.0-18.0); Mean Corp Hgb Conc. 29.6 g/dL (33.0-37.0); Mean Corpuscular Hgb 25.7 pg (27.0-31.0); Mean Corpuscular Volume 86.8 fL (80.0-94.0); Mean Platelet Volume 9.8 fL (7.4-10.4); Platelet Count 358 10^3/uL (130-400); Red Blood Cell Count 5.38 10^6/uL (4.70-6.10); Red Cell Dist. Width 18.5 % (11.5-14.5); White Blood Cell Count 9.9 10^3/uL (4.8-10.8)
[2024-07-24 08:27] LABS: ALT (SGPT) 29 U/L (0-50); AST (SGOT) 38 U/L (17-59); Albumin 3.7 g/dl (3.5-5.0); Alkaline Phosphatase 77 U/L (38-126); Blood Urea Nitrogen 18 mg/dl (9-20); Calcium 9.9 mg/dl (8.4-10.2); Carbon Dioxide 39 mmol/L (22-30); Chloride 93 mmol/L (98-107); Estimated Creatinine Clearance 85 ml/min; Glucose 139 mg/dl (70-99); Magnesium 1.8 mg/dl (1.6-2.3); Potassium 4.4 mmol/L (3.5-5.1); Sodium 138 mmol/L (135-145); Total Bilirubin 0.7 mg/dl (0.2-1.3); Total Protein 6.4 g/dl (6.3-8.2); eGFR > 60.00
[2024-07-24] MEDS: IMDUR (EXTENDED RELEASE) 60 MG PO (09:00)
[2024-07-24] MEDS: NICODERM TRANSDERMAL 7 MG TRANSDERM (09:00)
[2024-07-24] MEDS: PACERONE 200 MG PO (09:00)
[2024-07-24] MEDS: ZESTRIL 40 MG PO (09:00)
[2024-07-24] MEDS: LASIX 40 MG PO ×2 (09:00→15:07)
[2024-07-24] MEDS: FOLVITE 1 MG PO (09:00)
[2024-07-24] MEDS: ELIQUIS 5 MG PO (09:00)
[2024-07-24] MEDS: DESENEX/MITRAZOL/ZEASORB 1 APPLIC TOPICAL (09:00)
[2024-07-24] MEDS: AFRIN NASAL SPRAY 30 SPRAYS NASAL (09:00)
[2024-07-24] MEDS: PLAVIX 75 MG PO (09:00)
[2024-07-24] MEDS: TOPROL XL 50 MG PO (09:00)
[2024-07-24] MEDS: HYDROPHOR 1 APPLIC TOPICAL (09:00)
--- NOTE | 2024-07-24 10:58 | CM ---
Patient seen bedside.
Possible d/c later today.
Oxygen via [facility].
Home oxygen assessment pending.
IMM completed.
Plan home with [facility], possible home oxygen needs.
[2024-07-24] MEDS: MAGONATE 86 MG PO (12:02)
[2024-07-24 12:55] VITALS: O2SAT 97
--- NOTE | 2024-07-24 15:07 | VNURNOTE ---
Patient qualified for home 02, reviewed with patient no smoking with 02. Patient verbalized understanding and seems motivated to continue to wear nicotine patch. Clinicals sent to [facility] at [facility]. Nano confirmed she delivered portable tank to
bedside. Patient aware to call DME co when DC home.
[2024-07-24 15:31] VITALS: BP 106/55
--- NOTE | 2024-07-24 17:22 | W.DCSUMMARY ---
Addendum entered and electronically signed by Rachid Shea MD 07/25/24 00:58:
Read, reviewed, and agree. See same day progress note for additional details. Patient was to DC aspirin on DC. Eliquis and Lovenox were not continued together.
Jas Shea MD
Original Note:
Documented by User: Leonie Lanier MD, Resident 07/24/24 17:52
Discharge Summary
Discharge Data
Date of Admission: 07/16/24
Date of Discharge: 07/24/24
-
Pending Results: No
Hospital Course
Patient is a 73-year-old male with a past medical history of peripheral artery disease s/p right femoral bypass last year, hepatitis C, CAD s/p CABG, CHF, COPD, hypertension, diabetes, obstructive sleep apnea, hyperlipidemia who presented with
increased swelling of his left lower extremity for the past few weeks. He has had swelling of his left lower extremity with redness. He had marked pain of the left heel and a black marking/wound seen on the posterior aspect of his left heel. He
also reported soreness and cramping of the left calf with ambulation. He also reported that he was having increased shortness of breath with exertion. He has a chronic cough which was at baseline on his arrival. He has increased abdominal
distention and thinks that he gained a lot of weight although he did not weigh himself recently. He was recently admitted last month for CHF exacerbation. He smokes less than a half a pack of cigarettes a day and drinks beer occasionally. Patient
was admitted to [facility] for acute on chronic HFpEF exacerbation with an ejection fraction of 50% and NYHA class III-IV categorization.
Upon determination that the patient was suffering from acute on chronic HFpEF exacerbation due to fluid overload, we immediately started IV Lasix in order to diurese the patient and shed fluid. Cardiology was consulted. During diuresis compression
stockings were used to help assist pushing fluid from the legs back into the intravascular space. As the patient was diuresed labs were drawn every day in order to ensure potassium levels were greater than 4 and magnesium levels were greater than
2. If potassium was less than 4 magnesium was less than 2 they were immediately repleted. There was a venous stasis ulcer seen on the left lower limb near the posterior lateral aspect of the foot above the heel. Wound care assessed the wound and
treated it during the patient's admission. The patient's weight on admission was greater than 20 pounds when compared to the discharge weight of the patient on his last hospital admission. His weight on the date of admission was 223 pounds. His
weight rapidly reduced over the course of course of a week and the patient upon completion of diuresis was weighed at 185.19 pounds. This weight appears to be his euvolemic weight. As the patient approaches euvolemia his bilateral lower limb
swelling improved and his left lower limb stopped hurting and itching. Both legs return to equal size with no edema. Due to the patient's past history of peripheral artery disease and osteomyelitis this patient was not a good candidate for an
SGLT2 inhibitor and medications of this class should be avoided. Cardiology recommended switching the patient over from metoprolol succinate to metoprolol tartrate. Patient was started on 5 mg Eliquis twice daily and continued on Lovenox. He had
1 day where he had an episode of epistaxis likely due to dry mucous membranes in the nose from his oxygen cannula. His apixaban and Lovenox was held and humidified air through the nasal cannula was added. After resolution of epistaxis the patient
resumed his Eliquis and Lovenox with no further issues. There was a brief episode of atrial flutter but this quickly resolved and the patient remained in sinus rhythm. Cardiology recommended following up in the outpatient setting. The patient
required 2 L of oxygen nasal cannula in order to maintain proper oxygenation during his hospital stay. Multiple attempts were made to wean the patient down to room air but each time he would desaturate. On ambulation test the patient desaturated
to 88%. Patient is in need of oxygen on exertion due to a pulse oximetry of 95% at rest on room air and 88% during ambulation on room air. Patient continues to smoke half a pack of cigarettes a day and states that he will find it hard to quit and
is unsure if he will be able to do so. Education provided on the importance of nicotine cessation and that he may need home oxygen. He has been specifically instructed to avoid having fire near his oxygen canister. Patient was also advised to
utilize CPAP therapy as he suffers from obstructive sleep apnea. Unfortunately he is not compliant with CPAP therapy.
The patient has reached maximal benefit from this hospital admission and is appropriate for discharge at the present time. He is medically stable and there are no barriers that would impede him from being safely discharged. The patient believes
that he is at baseline and would like to be discharged. It is recommended that the patient follow-up with outpatient cardiology for his chronic HFpEF. Patient is appropriate for follow-up in the outpatient setting with his primary care provider 1
to 2 weeks following discharge.
Discharge Plan
-
Patient Disposition: Home (Routine Discharge)
Discharge Diagnosis/Procedures: Acute CHF Exacerbation
Condition: Good
Diet: Low Sodium and Restrict fluids to 48 oz
Activity: No restrictions
Driving Restrictions: As prior to admission
Bathing Restrictions: None
Activity Restrictions/Additional Instructions:
Wound Care Instructions
moisturize legs with mineral oil daily after bathing.
*If leg starts to drain apply dry dressing, change daily and prn drainage.
leg elevation when sitting
smoking cessation and weight management plan
Follow up at wound care center call for an appointment.
Instructions: *[facility] Heart Failure Instructions
Referrals:
Hanna Zavaleta PA-C [Specified Professional Personl] - 08/08/24 1:30 pm (Vascular follow up)
Heriberto Olivarez MD [Active] - in two to three weeks
Modesta Turner DO [Family Provider] - in one to two weeks
Prescriptions:
New
Eliquis 5 mg Tablet
5 mg PO BID 30 Days Qty: 60 0RF
furosemide 40 mg Tablet
40 mg PO BID AT 0800,1600 30 Days Qty: 60 0RF
amiodarone 200 mg Tablet
200 mg PO DAILY 30 Days Qty: 30 0RF
aspirin 81 mg tablet,delayed release (DR/EC)
81 mg PO DAILY 30 Days Qty: 30 0RF
Continued
isosorbide mononitrate 60 mg Tablet Extended Release 24 Hr
60 mg PO DAILY
clopidogrel [Plavix] 75 mg Tablet
75 mg PO DAILY
Trelegy Ellipta 100-62.5-25 mcg Blister With Device
1 inh INHALATION R DAILY@1999
atorvastatin 80 mg Tablet
80 mg PO HS
albuterol sulfate 90 mcg/actuation HFA aerosol inhaler
2 puff INHALATION R QIDPRN PRN (Reason: sob)
folic acid 1 mg tablet
1 mg PO DAILY
lisinopril 40 mg tablet
40 mg PO DAILY
Rx Instructions:
hold on the day of surgery
metoprolol tartrate 50 mg tablet
50 mg PO BID 30 Days Qty: 60 0RF
Discontinued
aspirin 81 mg Tablet,Delayed Release (Dr/Ec)
81 mg PO DAILY
furosemide 40 mg tablet
40 mg PO DAILY
Discharge Orders:
Discharge Patient (As Directed); Ordered 07/24/24
Ordered By: Leonie Lanier
Discharge Date and Time
Discharge Date/Time: 07/24/24 18:26
Print Language: PERSIAN

Documented by User: Rachid Shea MD 07/25/24 00:45
Discharge Summary
Discharge Data
Date of Admission: 07/16/24
Date of Discharge: 07/25/24
Discharge Plan
-
Patient Disposition: Home (Routine Discharge)
Discharge Diagnosis/Procedures: Acute CHF Exacerbation
Condition: Good
Diet: Low Sodium and Restrict fluids to 48 oz
Activity: No restrictions
Driving Restrictions: As prior to admission
Bathing Restrictions: None
Activity Restrictions/Additional Instructions:
Wound Care Instructions
moisturize legs with mineral oil daily after bathing.
*If leg starts to drain apply dry dressing, change daily and prn drainage.
leg elevation when sitting
smoking cessation and weight management plan
Follow up at wound care center call for an appointment.
Instructions: *[facility] Heart Failure Instructions
Referrals:
Hanna Zavaleta PA-C [Specified Professional Personl] - 08/08/24 1:30 pm (Vascular follow up)
Heriberto Olivarez MD [Active] - in two to three weeks
Modesta Turner DO [Family Provider] - in one to two weeks
Prescriptions:
New
Eliquis 5 mg Tablet
5 mg PO BID 30 Days Qty: 60 0RF
furosemide 40 mg Tablet
40 mg PO BID AT 0800,1600 30 Days Qty: 60 0RF
amiodarone 200 mg Tablet
200 mg PO DAILY 30 Days Qty: 30 0RF
aspirin 81 mg tablet,delayed release (DR/EC)
81 mg PO DAILY 30 Days Qty: 30 0RF
Continued
isosorbide mononitrate 60 mg Tablet Extended Release 24 Hr
60 mg PO DAILY
clopidogrel [Plavix] 75 mg Tablet
75 mg PO DAILY
Trelegy Ellipta 100-62.5-25 mcg Blister With Device
1 inh INHALATION R DAILY@1999
atorvastatin 80 mg Tablet
80 mg PO HS
albuterol sulfate 90 mcg/actuation HFA aerosol inhaler
2 puff INHALATION R QIDPRN PRN (Reason: sob)
folic acid 1 mg tablet
1 mg PO DAILY
lisinopril 40 mg tablet
40 mg PO DAILY
Rx Instructions:
hold on the day of surgery
metoprolol tartrate 50 mg tablet
50 mg PO BID 30 Days Qty: 60 0RF
Discontinued
aspirin 81 mg Tablet,Delayed Release (Dr/Ec)
81 mg PO DAILY
furosemide 40 mg tablet
40 mg PO DAILY
Discharge Orders:
Discharge Patient (As Directed); Ordered 07/24/24
Ordered By: Leonie Lanier
Discharge Date and Time
Discharge Date/Time: 07/24/24 18:26
Print Language: PERSIAN
== END 2024-07-24 18:26 | disposition home health service (06) | DRG 291 ==
LOC: 4 WEST ACU 13:16
PROVIDERS: Hospitalist; Nurse Practitioner; Nurse Practitioner Gerontology; ADMITTING PHYSICIAN Hospitalist; ATTENDING PHYSICIAN Family Medicine; EMERGENCY PHYSICIAN Emergency Medicine; FAMILY PHYSICIAN Family Medicine; OTHER PHYSICIAN Nuclear Medicine Nuclear Cardiology
DX: I11.0 Hypertensive heart disease with heart failure (principal); I50.23 Acute on chronic systolic (congestive) heart failure; D68.32 Hemorrhagic disorder due to extrinsic circulating anticoagulants; I47.20 Ventricular tachycardia, unspecified; I48.92 Unspecified atrial flutter; E87.3 Alkalosis; M86.9 Osteomyelitis, unspecified; Z66 Do not resuscitate; I5A Non-ischemic myocardial injury (non-traumatic); J44.9 Chronic obstructive pulmonary disease, unspecified; E11.51 Type 2 diabetes mellitus with diabetic peripheral angiopathy without gangrene; E11.69 Type 2 diabetes mellitus with other specified complication; E78.00 Pure hypercholesterolemia, unspecified; I25.10 Atherosclerotic heart disease of native coronary artery without angina pectoris; G47.33 Obstructive sleep apnea (adult) (pediatric); Z95.820 Peripheral vascular angioplasty status with implants and grafts; B19.20 Unspecified viral hepatitis C without hepatic coma; F17.210 Nicotine dependence, cigarettes, uncomplicated; E87.5 Hyperkalemia; T46.4X5A Adverse effect of angiotensin-converting-enzyme inhibitors, initial encounter; T45.515A Adverse effect of anticoagulants, initial encounter; I71.43 Infrarenal abdominal aortic aneurysm, without rupture; I70.203 Unspecified atherosclerosis of native arteries of extremities, bilateral legs; R04.0 Epistaxis; I48.0 Paroxysmal atrial fibrillation; I87.8 Other specified disorders of veins; I25.2 Old myocardial infarction; Z86.73 Personal history of transient ischemic attack (TIA), and cerebral infarction without residual deficits; Z95.1 Presence of aortocoronary bypass graft; Z91.199 Patient's noncompliance with other medical treatment and regimen due to unspecified reason; Z95.5 Presence of coronary angioplasty implant and graft; Z88.2 Allergy status to sulfonamides; Z79.82 Long term (current) use of aspirin; Z79.02 Long term (current) use of antithrombotics/antiplatelets; Z79.51 Long term (current) use of inhaled steroids; Z79.899 Other long term (current) drug therapy
CPT/HCPCS: 71046; 73650; 75635; 80048; 80053; 82805; 82962; 83735; 83880; 84484; 85025; 85027; 86803; 93005; 94640; 97161; 99285; 99406; Q9967

== ENCOUNTER 2024-08-18 16:42 | Inpatient (IN) | payer MEDICARE, SELFPAY ==
[2024-08-18] VITALS (10 sets, daily range): BP systolic 138–172; BP diastolic 71–97; BMI 33.3
--- NOTE | 2024-08-18 13:18 | ED.GENMED ---
History of Present Illness
General
Chief Complaint: Swelling
Source: patient
Exam Limitations: none
Time Seen by Provider: 08/18/24 12:54
History of Present Illness
History of Present Illness:
See MDM
Past History
Past History
ED Past Medical History: COPD, HTN, Hypercholesterolemia, NIDDM, NH, Other (agre with documented pmhx and add: COPD.) and Other (TIA, diabetes mellitus type 2, hyperlipidemia, COPD, CAD, NH with CABG, hypertension, sleep apnea, hepatitis C)
ED Past Surgical History: Appendectomy, Cardiac (stents. Has had several stents. Last heart surgery 1997.), Orthopedic and Tonsilectomy
Social History
Tobacco: Smoker
Alcohol: Occasional
Drug: Marijuana
Personal:
Living: with family
Employment: Disabled
Family History
Family History: CAD
Phy Exam
Physical Exam
Physical Exam:
See MDM
Scores
Heart Failure Risk
Heart Failure Risk Score: Yes
History of Stroke or TIA: No
History of intubation for respiratory distress: No
Heart rate on ED arrival >/= 110: No
SaO2 <90% on arrival on room air: Yes
HR >/=110 during 3min walk test (or too ill to perform test): Yes
ECG has acute ischemic changes: No
Urea >/=12mmol/L (BUN 33.6mg/dL): No
Serum CO2>/=35mmol/L: Yes
Troponin I or T elevated to NH Level (0.4mg/dL): No
NT-proBNP >/=5,000ng/L (5,000pg/ml): Yes
HF Risk Score: 6
Admission Status: VERY HIGH RISK 55.3% Consider admission to hospital
Course
Orders/Labs/Results
Orders:
Orders
08/18/24 13:15
Electrocardiogram (*1) Urgent
Reason for Study: Shortness of Breath
EKG- Treatment ONCE
US Abdomen Limited Urgent
Comment:
Reason For Exam: ascites evaluation, abd distention
08/18/24 13:16
CR Chest - 2 Views Urgent
Comment:
Reason For Exam: SOB, hx CHF
08/18/24 13:30
Complete Blood Count/With Diff Urgent
Comprehensive Metabolic Panel Urgent
NT-proBNP Urgent
PTT Urgent
Prothrombin Time Urgent
Troponin I Urgent
08/18/24 13:52
Case Management Consult ONCE
Case Management Consult: Discharge Planning
Abnormal Lab Results
08/18/24
13:30
WBC 12.0 H 10^3/uL
(4.8-10.8)
RBC 4.66 L 10^6/uL
(4.70-6.10)
Hgb 12.4 L g/dL
(13.0-18.0)
MCH 26.6 L pg
(27.0-31.0)
MCHC 30.2 L g/dL
(33.0-37.0)
RDW 18.8 H %
(11.5-14.5)
Abs Immat Gran (auto) 0.1 H 10^3/uL
(0-0.05)
Absolute Neuts (auto) 10.0 H 10^3/uL
(1.4-6.5)
Absolute Lymphs (auto) 0.8 L 10^3/uL
(1.2-3.4)
Absolute Monos (auto) 1.0 H 10^3/uL
(0.1-0.6)
Neutrophils % 82.9 H %
(42.2-75.2)
Lymphocytes % 7.0 L %
(20.5-51.1)
PT 15.4 H Sec
(11.4-14.6)
Chloride 92 L mmol/L
(98-107)
Carbon Dioxide 37 H mmol/L
(22-30)
BUN 23 H mg/dl
(9-20)
Glucose 129 H mg/dl
(70-99)
Troponin I 0.054 H* ng/ml
08/18/24 13:30
08/18/24 13:30
Vital Signs
Initial and Last Documented VS:
Initial Vital Signs
Temp Pulse Resp BP Pulse Ox
98.1 F 95 22 166/88 86
08/18/24 12:05 08/18/24 12:05 08/18/24 12:05 08/18/24 12:05 08/18/24 12:05
Last Documented Vital Signs
Temp Pulse Resp BP Pulse Ox
98.1 F 83 28 157/82 95
08/18/24 12:05 08/18/24 13:30 08/18/24 13:30 08/18/24 13:26 08/18/24 13:31
MDM/Problems Addressed
Differential Diagnosis Includes:
HPI and MDM Narrative:
73-year-old male presenting for worsening shortness of breath and leg swelling. Patient was admitted last month for CHF exacerbation with preserved ejection fraction. He was started on oxygen for hypoxia. However, patient states he lives with his
nephew and his nephew does not like oxygen in the house because the nephew smokes. Because of this, patient has not been using his oxygen. His daughter at bedside noticed that his abdomen is more distended and fluid-filled. Patient claims
compliance with his medications.
Patient found to be expectedly hypoxic on room air and requiring 2 L nasal cannula. Given the concern for ascites, will obtain abdominal ultrasound. Will obtain chest x-ray and ultimately start IV Lasix and admit. Will hold off on IV Lasix until
potassium returns
Physical exam
General: Well appearing and non-toxic
HEENT: protecting airway
Neck: appears supple
CV: No evidence of cyanosis. Regular rate and rhythm
Resp: No accessory muscle use. Mild crackles at bases
Abd: Distended and fluid-filled but nontender
Extremities: +3 pitting edema bilateral lower extremities with erythema noted to left leg. Patient states this is somewhat chronic
Neuro: alert
Psych: Normal affect
Skin: Intact
Problems Addressed including Acute and Chronic Conditions affecting care:
1. [CHF exacerbation
Acuity: acute
Prognosis: stable
Details: Will start IV Lasix after potassium level returns
2. Abdominal ascites
Acuity: acute
Prognosis: stable
Details: Will obtain abdominal ultrasound and patient will likely require drainage at some point during this admission
Updates
Chest x-ray confirms pleural effusions and edema. BNP and troponin are elevated. Patient likely has heart strain. He is already on Eliquis. Will start IV Lasix and admit
Differential Diagnosis (but not limited to): Ascites, congestive heart failure, pneumonia
Testing considered: D-dimer but he is on blood thinners
Drug therapy (if applicable): OTC meds, please see d/c instruction regarding Rx drugs
Amount and/or Complexity of Data Reviewed
Clinical info obtained from: Patient
External data reviewed: Recent admission for congestive heart failure where he was started on oxygen and Eliquis
Labs I independently reviewed (but not limited to): BNP and troponin elevated
Radiology: X-ray independently reviewed: Chest x-ray consistent with pleural effusions
Pulse Ox: hypoxic
EKG independently reviewed: Sinus rhythm, normal axis, no STEMI
Dental Equipment Repairer: Sinus rhythm
Critical Care: The high probability of a clinically significant, sudden or life threatening deterioration of the cardiopulmonary system(s) required my full and direct attention, intervention and personal management. The aggregate critical care time
was 33 minutes. This time is in addition to time spent performing reported procedures but includes the following:
[x] Data Review and interpretation
[x] Patient assessment and monitoring of vital signs
[x] Documentation
[x] Medication orders and management
Risk of Complication:
Social Determinants of health: Good social support
Discussed with other providers: Hospitalist
Escalation of Care includes Admit/Obs: Given the worsening congestive failure requiring IV Lasix, will admit
Occasional wrong word or 'sound a like' substitutions may have occurred due to the inherent limitations of voice recognition software. Read the chart carefully and recognize, using context, where substitutions have occurred.
*Critical Care Note
Total Time (30-74mins, 75-104mins- exclusive of procedures): 33 min
ED Attending Note
-
Portions of this chart may have been created with voice recognition software.� Occasional wrong word or��sound alike� substitutions may have occurred due to the inherent limitations of voice recognition software.
Discharge Plan
Departure
Patient Disposition: Admit
Date of Disposition: 08/18/24
Time of Disposition: 14:52
Admit to: Telemetry
Presentation/result/management discussed w/ accepting MD/DO: Hospitalist
Discharge Problem:
Pleural effusion, Hypoxia, Acute exacerbation of CHF (congestive heart failure)
Prescriptions:
No Action
isosorbide mononitrate 60 mg Tablet Extended Release 24 Hr
60 mg PO DAILY
clopidogrel [Plavix] 75 mg Tablet
75 mg PO DAILY
Trelegy Ellipta 100-62.5-25 mcg Blister With Device
1 inh INHALATION R QPM
atorvastatin 80 mg Tablet
80 mg PO HS
albuterol sulfate 90 mcg/actuation HFA aerosol inhaler
2 puff INHALATION R QIDPRN PRN (Reason: sob)
folic acid 1 mg tablet
1 mg PO DAILY
lisinopril 40 mg tablet
40 mg PO DAILY
Eliquis 5 mg Tablet
5 mg PO BID 30 Days Qty: 60 0RF
furosemide 40 mg Tablet
40 mg PO BID AT 0800,1600 30 Days Qty: 60 0RF
amiodarone 200 mg Tablet
200 mg PO DAILY 30 Days Qty: 30 0RF
metoprolol tartrate 50 mg tablet
50 mg PO BID 30 Days Qty: 60 0RF
aspirin 81 mg tablet,delayed release (DR/EC)
81 mg PO DAILY 30 Days Qty: 30 0RF
metformin 500 mg Tablet
500 mg PO DAILY
thiamine HCl (vitamin B1) 100 mg Tablet
100 mg PO DAILY
Referrals:
Modesta Turner DO [Family Provider] -
Interventions
Interventions:
*Risk Screen - Suicide Last Done: 08/18/24 12:05
*General Assessment Last Done: 08/18/24 12:05
*Neglect/Abuse Screening Last Done: 08/18/24 12:05
*ED COVID-19 Vaccine History Last Done: 08/18/24 13:31
ED- Cardiac Assessment Last Done: 08/18/24 13:31
ED- Pulmonary Assessment Last Done: 08/18/24 13:31
ED-Skin Assessment Last Done: 08/18/24 13:37
Discharge Date and Time
Print Language: KISWAHILI
[2024-08-18 13:52] LABS: % Basophils 0.7 % (0-2); % Eosinophils 0.2 % (0-6); % Immature Granulocytes 0.5 % (0-0.5); % Monocytes 8.7 % (1.7-9.3); % Neutrophils 82.9 % (42.2-75.2); Absolute Basophils 0.1 10^3/uL (0-0.2); Absolute Immature Granulocytes 0.1 10^3/uL (0-0.05); Absolute Lymphocytes 0.8 10^3/uL (1.2-3.4); Hematocrit 41.1 % (39.0-52.0); Hemoglobin 12.4 g/dL (13.0-18.0); Mean Corp Hgb Conc. 30.2 g/dL (33.0-37.0); Mean Corpuscular Hgb 26.6 pg (27.0-31.0); Mean Corpuscular Volume 88.2 fL (80.0-94.0); Mean Platelet Volume 10.1 fL (7.4-10.4); Nucleated Red Blood Cells % 0.3 % (-); Platelet Count 389 10^3/uL (130-400); Red Blood Cell Count 4.66 10^6/uL (4.70-6.10); Red Cell Dist. Width 18.8 % (11.5-14.5)
[2024-08-18 13:55] LABS: ALT (SGPT) 18 U/L (0-50); AST (SGOT) 25 U/L (17-59); Albumin 3.6 g/dl (3.5-5.0); Alkaline Phosphatase 92 U/L (38-126); Blood Urea Nitrogen 23 mg/dl (9-20); Calcium 9.6 mg/dl (8.4-10.2); Chloride 92 mmol/L (98-107); Estimated Creatinine Clearance 89 ml/min; Glucose 129 mg/dl (70-99); Potassium 4.4 mmol/L (3.5-5.1); Sodium 139 mmol/L (135-145); Total Bilirubin 0.7 mg/dl (0.2-1.3); Total Protein 6.4 g/dl (6.3-8.2); eGFR > 60.00
[2024-08-18 14:00] LABS: INR 1.24; PT 15.4 Sec (11.4-14.6)
[2024-08-18 14:09] LABS: NT-proBNP 12300 pg/ml; Troponin I 0.054 ng/ml
[2024-08-18 14:17] LABS: Carbon Dioxide 37 mmol/L (22-30)
--- NOTE | 2024-08-18 15:05 | HPS.HSE ---
Family Physician
-
Family Physician: Modesta Turner
Chief Complaint
-
Swelling
History of Present Illness
Patient is a 73-year-old male with past medical history significant for HFpEF, peripheral artery disease s/p right femoral bypass (2022), hepatitis C, CAD s/p CABG, CHF, COPD, hypertension, diabetes, obstructive sleep apnea, hyperlipidemia who
presented to [facility] ED today for evaluation of persistent swelling in abdomen an bilateral lower extremities for at least a week. On arrival to emergency room patient was hypoxic on room air and placed on O2 via NC with 3 liters and now
maintaining g>95%. Patient denies having home oxygen, states he wishes he did and will often buy canned air at [facility] and use when having shortness of breath. Patient states he has chronic moist cough and is no worse than his baseline at home. He
denies fever, chills, nausea, vomiting, chest pain, constipation, diarrhea, and any urinary symptoms.
Medical History
Past Medical History
Past Medical History: Reports Other
Additional Past Medical History:
CHF
peripheral artery disease s/p right femoral bypass (2022)
hepatitis C
CAD s/p CABG
COPD
hypertension
diabetes
obstructive sleep apnea
hyperlipidemia
Past Surgical History: Reports Other
Additional Past Surgical History:
peripheral artery disease s/p right femoral bypass (2022)
CAD s/p CABG
Social History
Tobacco: Smoker (0.25 pack per day/13 pack year history)
Alcohol: Occasional (last beer last night)
Drug: Marijuana (smokes daily)
Personal: Single
Living: With Family (lives with nephew)
Employment: Not Employed
Family History
Family History: Not pertinent
Allergies / Home Medications
Allergies reflects when Allergies were last updated in [employer].
Home Medications with original date entered in [employer]
Allergy/Medication List:
Allergies
Allergy/AdvReac Type Severity Reaction Status Date / Time
Sulfa (Sulfonamide Allergy hives,itchi Verified 07/16/24 08:45
Antibiotics) ng
Home Medications
isosorbide mononitrate 60 mg tablet,extended release 24 hr 60 mg PO DAILY Heart Disease/Condition 02/26/11
clopidogrel 75 mg tablet (Plavix) 75 mg PO DAILY Blood Clot Prevention/Tx 07/25/23
fluticasone fur. 100 mcg-umeclid 62.5 mcg-vilant 25 mcg inhalat.powder (Trelegy Ellipta) 1 inh inhalation R QPM Lung/Breathing Issues 07/25/23
atorvastatin 80 mg tablet 80 mg PO HS High Cholesterol 07/26/23
albuterol sulfate 90 mcg/actuation aerosol inhaler 2 puff inhalation R QIDPRN PRN sob 07/16/24
folic acid 1 mg tablet 1 mg PO DAILY Supplement 07/16/24
lisinopril 40 mg tablet 40 mg PO DAILY Blood Pressure 07/16/24
amiodarone 200 mg tablet 200 mg PO DAILY Arrhythmia 30 days #30 tabs 07/24/24
apixaban 5 mg tablet (Eliquis) 5 mg PO BID Blood clot prevention/tx 30 days #60 tabs 07/24/24
aspirin 81 mg tablet,delayed release 81 mg PO DAILY 30 days #30 tabs 07/24/24
furosemide 40 mg tablet 40 mg PO BID AT 0800,1600 30 days #60 tabs 07/24/24
metoprolol tartrate 50 mg tablet 50 mg PO BID Blood Pressure 30 days #60 tabs 07/24/24
metformin 500 mg tablet 500 mg PO DAILY 08/18/24
thiamine HCl (vitamin B1) 100 mg tablet 100 mg PO DAILY 08/18/24
Review of Systems
-
History Source: Patient
Constitutional: Reports No Symptoms
EENT: Reports No Symptoms
Respiratory: Reports Cough and Trouble Breathing (dyspnea with exertion)
Cardiac: Reports No Symptoms
Abdomen/GI: Reports Other (abdomen distended)
: Reports No Symptoms
Musculoskeletal: Reports Edema (bilateral lower extremity )
Skin: Reports No Symptoms
Neurological: Reports No Symptoms
Endocrine: Reports No Symptoms
Hematologic/Lymphatic: Reports No Symptoms
Psych: Reports No Symptoms
Physical Exam
Vital Signs
Vital Signs
Temp Pulse Resp BP Pulse Ox
98.1 F 83 28 157/82 95
08/18/24 12:05 08/18/24 13:30 08/18/24 13:30 08/18/24 13:26 08/18/24 13:31
Physical Exam
General: Well Developed, No Apparent Distress and Conversant
HEENT: NormoCephalic, Moist mucous membranes, Atraumatic, PERRLA, [place] Conjunctivae, Nose Appears Normal and Ears Appear Normal
Respiratory: Clear, Wheezes, Rhonchi and Crackles
Cardiac: S1/S2 and Regular Rhythm; No Murmur, Rub or Gallop
Breast: Deferred by me
GI: Soft, Non Tender and Normal Bowel Sounds; No Organomegaly
Rectal: Deferred by Provider
Genito-urinary: Deferred by me
Musculoskeletal: No Clubbing, No Cyanosis, Edema, Left Lower Extremity and Edema, Right Lower Extremity
Skin: Warm, IV/Catheter Site and Other (healed wound to Left lateral ankle, wound to left heel); No Rash
Neuro: Awake, Alert, AO x 3, Nonfocal/grossly intact and Cranial Nerves Intact
Hematologic/Lymphatic: No Lymphadenopathy
Psych: Calm
Laboratory Results
-
08/18/24 13:30
08/18/24 13:30
Laboratory Results
PT 15.4 Sec (11.4-14.6) H 08/18/24 13:30
INR 1.24 08/18/24 13:30
APTT 29.0 Sec (23.4-35.0) 08/18/24 13:30
Total Bilirubin 0.7 mg/dl (0.2-1.3) 08/18/24 13:30
AST 25 U/L (17-59) 08/18/24 13:30
ALT 18 U/L (0-50) 08/18/24 13:30
Alkaline Phosphatase 92 U/L (38-126) 08/18/24 13:30
Troponin I 0.054 ng/ml H* 08/18/24 13:30
Data Reviewed
-
Diagnostic Radiology: Report Reviewed by me (CXR: 1.Mod acute interstitial & alveolar cardiogenic pulmonary edema. 2.New small to mod-sized right pleural effusion w/ adjacent compressive atelectasis in the right lower and middle lobes. 3.Mild to
mode cardiomegaly. 4.Previous CABG surgery. 5.Multiple chronic healed bilateral lower rib fractures)
Medical Tests (Nuc Med, Echo, EKG etc): Report Reviewed by me (EKG: NORMAL SINUS RHYTHM, POSSIBLE LEFT ATRIAL ENLARGEMENT T WAVE ABNORMALITY, CONSIDER ANTERIOR ISCHEMIA)
Lab Data: Labs Reviewed by me (WBC 12.0, Neut 82.9, BNP 63235, Trop 0.054)
Impression/Plan
-
IMPRESSION/PLAN:
#Acute on Chronic HFrEF
- Echo: (05/2024) Normal left ventricular chamber size. The visually estimated ejection fraction is 50%. The basal inferior wall is hypokinetic in the parasternal short axis.
- BNP 15072
- CXR: 1. Moderate acute interstitial and alveolar cardiogenic pulmonary edema.
2. New small to moderate-sized right pleural effusion with adjacent compressive atelectasis in the right lower and middle lobes.
3. Mild to moderate cardiomegaly.
4. Previous CABG surgery.
5. Multiple chronic healed bilateral lower rib fractures.
- IV Lasix 40mg BID
- Consult Cardiology
- Monitor I&Os and Daily weights
#CAD s/p CABG
#peripheral artery disease s/p right femoral bypass (2022)
#Hyperlipidemia
- continue aspirin, plavix and atorvastatin
- continue metoprolol, isosorbide
#COPD
- continue albuterol, and trelegy
#Hypertension
- continue lisinopril
#DM2
- hold metformin
- accuchecks AC & HS with SSI
#Obstructive sleep apnea
- does not use CPAP
#Nicotine dependency
- Nicotine patch
- encourage cessation
Full Code
DVT Prophylaxis: Eliquis
--- NOTE | 2024-08-18 15:05 | CM ---
Addendum entered by Nano Garcia RN 08/18/24 16:07:
DANIKA spoke with Tawanna at [facility] with concerns regarding patient not having oxygen in the home.
Addendum entered by Nano Garcia RN 08/18/24 15:10:
Patient's physical address:
[address]
[facility] [address]
Original Note:
CM reviewed medical records. CM met with patient and daughter in room. Patient stated that he lives with his nephew who at this time is preventing any oxygen to be in the home. Patient was ordered oxygen on last admission from [facility]. Patient states
that the tank is still in the home. There is no concentrator in the home as well.
CM expressed concern that patient will have to find an environment that is friendly to patient having oxygen. CM provided daughter with resources for housing and aging services in [facility] and [facility]. Daughter understands that
patient will have to be discharged to another home where he can have oxygen in the home. She will work with family to come up with a solution.
CM will call protective services as patient has not have oxygen for several weeks due to nephew's resistance to having oxygen in the home.
--- NOTE | 2024-08-18 16:00 | W.PN.UPDATE ---
Update Note
Progress Note Update
This note serves as an addendum to the H&P by senior electrical engineer LYNDON Mikayla Munoz
HPI
73M current smoker, HX PAD status post right femoral bypass last year, hepatitis C, CAD status post CABG, CHF, COPD, hypertension, diabetes, obstructive sleep apnea, hyperlipidemia, presenting with increased swelling of his left lower extremity
over the past few weeks, wt gain and SoB
Not on PO2 at home
Reports wt gain about 5 lbs since last admission
Vital Signs
Temp Pulse Resp BP Pulse Ox
98.1 F 85 20 144/76 96
08/18/24 12:05 08/18/24 15:45 08/18/24 15:45 08/18/24 15:29 08/18/24 15:45
PE
Gen: wearing NC O2 3 L
HEENT: anicteric
Neck: supple
Lungs: symmetric AE. Ronchi and both lower filed.
Cor: RRR S1 S2
Abdomen: distended and soft
PET TECHNOLOGIST: AAO3
MS: b/l 3 plus Lyubov pitting edema
Psych: nl affect and nl mood
Laboratory Tests
07/16/24 07/19/24 07/24/24
10:00 01:50 07:36
WBC 9.9
Hgb 13.8
Potassium
Chloride
Carbon Dioxide
BUN
Creatinine
eGFR
Troponin I 0.080 H*
Zno-T-Tspscjdeuls Pept [id number]
08/18/24
13:30
WBC 12.0 H
Hgb 12.4 L
Potassium 4.4
Chloride 92 L
Carbon Dioxide 37 H
BUN 23 H
Creatinine 0.9
eGFR > 60.00
Troponin I 0.054 H*
Ofd-X-Vfsxxrayjly Pept [id number]
CXR
1. Moderate acute interstitial and alveolar cardiogenic pulmonary edema.
2. New small to moderate-sized right pleural effusion with adjacent compressive atelectasis in the right lower and middle lobes.
3. Mild to moderate cardiomegaly.
4. Previous CABG surgery.
5. Multiple chronic healed bilateral lower rib fractur
06/12/24 TTE
1. Left ventricle: Normal size. Low normal to mildly reduced LVEF visually estimated at 50%. The basal inferior wall is hypokinetic on the parasternal short axis views.
2. Right ventricle: Mildly dilated
3. Atria: Normal left atrial size with mildly dilated right atrium
4. Mitral valve: No mitral regurgitation
5. Aortic valve: Trileaflet. No aortic stenosis or aortic insufficiency
6. Tricuspid valve: No tricuspid regurgitation
7. When compared to the prior echocardiogram from 07/28/2023 there has been no significant change.
Last hospitalist admission:
Date of Admission: 07/16/24 - Date of Discharge: 07/24/24
Discharge Diagnosis/Procedures: Acute CHF Exacerbation
ASSESSMENT & PLAN
Acute on chronic HFrEF flare plus or minus decompensated RHF
- -Echo from last month shows EF of 50%, hypokinetic inferior wall
-Cardiac BNP of 12,300
- POS CXR for Moderate acute interstitial and alveolar cardiogenic pulmonary edema.
- IV lasix 40 BID
- f/i I's and O's, daily weights
- 40 IV Lasix twice daily
- DCA Cardiology consulted
HX chronic ischemia of left lower extremity
PAD status post right femoral bypass HX
- No concern for acute ischemia
- Vascular surgery consulted on last amission
CAD status post CABG
- c/w aspirin, Plavix and statin
- c/w metoprolol
- c/w isosorbide mononitrate
COPD HX
- c/w albuterol
- c/w Trelegy Ellipta
Current smoker
- Nicotine patch
MARIJA
- non compliance with CPAP
Essential hypertension
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
Type 2 diabetes
- add ISS low
Hyperlipidemia
HX hepatitis C
DVT prophylaxis�SQH
Full code
IP TLM
--- NOTE | 2024-08-18 16:23 | CON.CAR ---
Addendum entered and electronically signed by Edward Moya MD 08/18/24 18:34:
I saw and examined the patient.
The Sports Commentator's note was reviewed and I agree with the note.
Comment:
GEN: No distress, awake, Ox3
HEENT: supple, anicteric, mmm
LUNGS: dec Bs at bases
CV: Reg, S1/S2, / syst LSB, S4+
ABD: soft, BS+, NT/+ distended
EXT: ++ edema
NEURO: Gross non-focal
SKIN: No rash
Plan:
He has a past medical history of chronic heart failure with mildly reduced ejection fraction, CAD status post CABG/PCI, PAD, COPD, diabetes, hypertension, CVA and hyperlipidemia who presents with another acute on chronic heart failure with mild
reduced ejection fraction exacerbation. Compliance continues to be an issue with him. He has had several hospitalizations 1 in May and 1 in June. He mitts to being noncompliant with his medication, follow-up, low-sodium diet, and fluid
restriction. His weight is up 40 pounds from his last discharge.
CHF education. Start Lasix 60 mg IV twice daily. Follow creatinine.
Switch Lopressor to long-acting Toprol with heart failure and mildly reduced ejection fraction. Continue lisinopril.
Will need to evaluate for Jardiance/Farxiga.
His troponin is mildly abnormal. EKG is overall stable with sinus rhythm with nonspecific T wave abnormalities. Would strongly encourage compliance before pursuing another ischemic evaluation.
Continue amiodarone, Eliquis/Plavix.
Original Note:
Consultation
Consultation Request
Date/Time Consultation Requested: 08/18/241619
Date/Time Consultation Performed: 08/18/241623
Requesting Provider: JUAN Munoz
Performing Provider: JUAN Barber for Dr Moya
Reason for Consultation: heart failure
Medical History
-
Chief Complaint: Shortness of breath and significant weight gain
History of Present Illness:
Ross Nelson is a 73 year old male with chronic HFrEF, CAD s/p CABG and PCI, PAD s/p R femoral endarterectomy with saphenous vein angioplasty and R femoral to PT bypass 08/16, COPD, DM, HTN, hyperlipidemia, remote CVA who presented to [facility] emergency department on 08/18/2024 with shortness of breath, abdominal distension and worsening LE edema over 2 weeks duration. Had 2 prior admissions for CHF in last 2 months, one in 05/2024, and one in 06/2024. He has not been seen in
office since last hospitalization. Compliance felt to be significant issue. Noted to be hypoxic in ER today, improved on 3L NC. Not on home O2. ProBNP 99288. CXR with evidence of pulm edema and small to mod R effusion. Cardiology consulted for
evaluation.
Weight up 40 lbs from discharge wt of last admission (wt 185 lbs on 07/24/24).
poor compliance with low sodium diet
PMH:
heart failure mildly reduced EF
Poor medical compliance
CAD s/p remote CABG at [facility] and PCI at [facility]
History of CVA 2010
PAD, right femoral endarterectomy with saphenous vein angioplasty and right femoral to PT bypass August 04, 2023, Dr. Riley
Osteomyelitis toe
COPD
HTN
HLD
DM2
Ongoing tobacco use
Past Medical History
Past Medical History: Other
Social History
Tobacco: Smoker
Alcohol: Occasional
Drug: None
Personal: Single
Living: With Family (nephew)
Employment: Retired
Family History
Family History: Reviewed & Not Pertinent
Allergies / Home Medications
Allergy/AdvReac Type Severity Reaction Status Date / Time
Sulfa (Sulfonamide Allergy hives,itchi Verified 07/16/24 08:45
Antibiotics) ng
�Medication �Instructions �Recorded �Confirmed �Type
isosorbide mononitrate 60 mg 60 mg PO DAILY Heart 02/26/11 08/18/24 History
tablet,extended release 24 hr Disease/Condition
clopidogrel 75 mg tablet (Plavix) 75 mg PO DAILY Blood Clot 07/25/23 08/18/24 History
Prevention/Tx
fluticasone fur. 100 mcg-umeclid 1 inh inhalation R QPM 07/25/23 08/18/24 History
62.5 mcg-vilant 25 mcg Lung/Breathing Issues
inhalat.powder (Trelegy Ellipta)
atorvastatin 80 mg tablet 80 mg PO HS High Cholesterol 07/26/23 08/18/24 History
albuterol sulfate 90 mcg/actuation 2 puff inhalation R QIDPRN PRN sob 07/16/24 08/18/24 History
aerosol inhaler
folic acid 1 mg tablet 1 mg PO DAILY Supplement 07/16/24 08/18/24 History
lisinopril 40 mg tablet 40 mg PO DAILY Blood Pressure 07/16/24 08/18/24 History
amiodarone 200 mg tablet 200 mg PO DAILY Arrhythmia 30 days 07/24/24 08/18/24 Rx
#30 tabs
apixaban 5 mg tablet (Eliquis) 5 mg PO BID Blood clot 07/24/24 08/18/24 Rx
prevention/tx 30 days #60 tabs
aspirin 81 mg tablet,delayed 81 mg PO DAILY 30 days #30 tabs 07/24/24 08/18/24 Rx
release
furosemide 40 mg tablet 40 mg PO BID AT 0800,1600 30 days 07/24/24 08/18/24 Rx
#60 tabs
metoprolol tartrate 50 mg tablet 50 mg PO BID Blood Pressure 30 07/24/24 08/18/24 Rx
days #60 tabs
metformin 500 mg tablet 500 mg PO DAILY 08/18/24 08/18/24 History
thiamine HCl (vitamin B1) 100 mg 100 mg PO DAILY 08/18/24 08/18/24 History
tablet
Review of Systems
-
History Source: Patient
All other systems: Negative unless noted
Physical Exam
Vital Signs
GEN: No distress, awake, Ox3
HEENT: supple, anicteric, mmm
LUNGS: rhonchorous BS t/o, rales L 1/3 up
CV: Reg, S1/S2, 1/6 syst LSB, no murmur
ABD: +ascites
EXT: 3+ B/L LE edema to thighs
NEURO: Gross non-focal
SKIN: dry skin, flaky
Temp Pulse Resp BP Pulse Ox
98.1 F 85 20 144/76 96
08/18/24 12:05 08/18/24 15:45 08/18/24 15:45 08/18/24 15:29 08/18/24 15:45
Lab Results
08/18/24 13:30
08/18/24 13:30
Troponin I 0.054 ng/ml H* 08/18/24 13:30
Pqv-O-Ccwafdklalh Pept 79506 pg/ml 08/18/24 13:30
Impression / Plan
-
.
Support Service Tech: Dr Riggs
Impression:
Presentation with abd and LE edema
Acute hypoxic respiratory insufficiency
Acute heart failure likely heart failure with mildly reduced ejection fraction
Small to mod R pleural effusion by CXR
Elevated troponin, suspected nonischemic myocardial injury
CAD s/p remote CABG at [facility] and PCI at [facility]
History of CVA 2010
NSVT
Paroxysmal atrial fibrillation/flutter
PAD, right femoral endarterectomy with saphenous vein angioplasty and right femoral to PT bypass August 04, 2023, Dr. Riley
Poor medical compliance
Osteomyelitis toe
COPD
HTN
HLD
DM2
Ongoing tobacco use
Hx bedbugs 06/17 admission
Recent cardiac testing:
- Echo 06/12/2024: EF 50%, basal inferior wall hypokinetic on parasternal short axis views, RV mildly dilated, mildly dilated RA, no significant valvular disease noted
- Echocardiogram July 28, 2023 finds normal LV size and function with LVEF in the low normal range estimated at 51% with basal to mid inferior wall severe hypokinesis. No significant valvular disease.
- Dobutamine nuclear stress test July 29, 2023 finds large inferior and basal inferior septal infarct without stephanie-infarct ischemia. Baseline LVEF 43%
Plan:
-Ross Nelson is a 73 year old male with chronic HFrEF, CAD s/p CABG and PCI, PAD s/p R femoral endarterectomy with saphenous vein angioplasty and R femoral to PT bypass 08/16, COPD, DM, HTN, hyperlipidemia, remote CVA who presented to [place] [facility] emergency department on 08/18/2024 with abdominal and LE edema. Had 2 prior admissions for CHF in last 2 months, one in 05/2024, and one in 06/2024. He has not been seen in office since last hospitalization. Compliance felt to be significant
issue. Noted to be hypoxic in ER today, improved on 3L NC. Not on home O2. ProBNP 27452. CXR with evidence of pulm edema and small to mod R effusion. Cardiology consulted for evaluation.
-diuresis with IV lasix. Cr stable at 0.9
-continue supp O2. wean as able. will need eval for home O2 prior to DC
-CHF education
-trop 0.054. EKG appears stable compared to prior. suspected nonischemic myocardial injury. trend trops to peak
-in SR. continue amiodarone. he had been on toprol last admission however appears to currently be listed on lopressor. with mild EF reduction would favor toprol
-continue eliquis. also on plavix for history of CVA and PAD with prior RLE bypass in 07/2023
-continue lisinopril, imdur. not felt to be candidate for SGLT2 inhibitor due to noncompliance and PAD/osteomyelitis
Data Reviewed
-
EKG: Tracing Personally Visualized and interpreted
Radiology: Report Reviewed by me
Medical Tests (Nuc Med, Echo etc): Report Reviewed by me
Labs: Labs Reviewed by me
Old Records: Reviewed
[2024-08-18] MEDS: NOVOLOG FLEXPEN-LOW RESISTANCE SC (17:57)
[2024-08-18] MEDS: LASIX 40 MG IV (17:59)
[2024-08-18] MEDS: NICODERM TRANSDERMAL 14 MG TRANSDERM (18:00)
[2024-08-18 18:03] LABS: Glucose - Point of Care 100 mg/dl (70-99)
--- NOTE | 2024-08-18 19:16 | PTCARENOTE ---
Arrived to unit From ED and ambulated to bed with stand by assistance. Oriented to room. Call liu and urinal within reach.
[2024-08-18] MEDS: SYMBICORT 80/4.5 MCG INHALER 2 PUFF INH (19:36)
[2024-08-18] MEDS: LIPITOR 80 MG PO (20:43)
[2024-08-18] MEDS: LOPRESSOR 50 MG PO (20:43)
[2024-08-18] MEDS: ELIQUIS 5 MG PO (20:43)
[2024-08-18 21:13] LABS: Glucose - Point of Care 166 mg/dl (70-99)
[2024-08-18] MEDS: TYLENOL 1000 MG PO (21:23)
[2024-08-19] VITALS (9 sets, daily range): BP systolic 98–149; BP diastolic 50–79; PULSE 61–63; O2SAT 95; BMI 30.9
[2024-08-19 02:01] LABS: Troponin I 0.066 ng/ml
[2024-08-19 06:43] LABS: Hematocrit 39.9 % (39.0-52.0); Hemoglobin 12.1 g/dL (13.0-18.0); Mean Corp Hgb Conc. 30.3 g/dL (33.0-37.0); Mean Corpuscular Hgb 25.8 pg (27.0-31.0); Mean Corpuscular Volume 85.1 fL (80.0-94.0); Mean Platelet Volume 9.6 fL (7.4-10.4); Platelet Count 393 10^3/uL (130-400); Red Blood Cell Count 4.69 10^6/uL (4.70-6.10); Red Cell Dist. Width 18.6 % (11.5-14.5); White Blood Cell Count 10.6 10^3/uL (4.8-10.8)
[2024-08-19 07:02] LABS: Blood Urea Nitrogen 21 mg/dl (9-20); Calcium 9.3 mg/dl (8.4-10.2); Carbon Dioxide 39 mmol/L (22-30); Chloride 93 mmol/L (98-107); Estimated Creatinine Clearance 96 ml/min; Glucose 114 mg/dl (70-99); Magnesium 1.8 mg/dl (1.6-2.3); Potassium 4.5 mmol/L (3.5-5.1); Sodium 138 mmol/L (135-145); eGFR > 60.00
[2024-08-19 07:04] LABS: Troponin I 0.055 ng/ml
[2024-08-19 08:04] LABS: Glucose - Point of Care 102 mg/dl (70-99)
[2024-08-19] MEDS: NOVOLOG FLEXPEN-LOW RESISTANCE SC ×2 (08:11→16:48)
[2024-08-19] MEDS: LOPRESSOR 50 MG PO ×2 (08:14→20:00)
[2024-08-19] MEDS: IMDUR (EXTENDED RELEASE) 60 MG PO (08:14)
[2024-08-19] MEDS: PACERONE 200 MG PO (08:15)
[2024-08-19] MEDS: FOLVITE 1 MG PO (08:15)
[2024-08-19] MEDS: ZESTRIL 40 MG PO (08:15)
[2024-08-19] MEDS: ASPIR LOW (ENTERIC COATED) 81 MG PO (08:15)
[2024-08-19] MEDS: VITAMIN B1 100 MG PO (08:15)
[2024-08-19] MEDS: ELIQUIS 5 MG PO ×2 (08:19→20:00)
[2024-08-19] MEDS: LASIX 40 MG IV ×2 (08:19→17:01)
[2024-08-19] MEDS: PLAVIX 75 MG PO (08:19)
[2024-08-19] MEDS: NICODERM TRANSDERMAL 14 MG TRANSDERM (08:20)
[2024-08-19] MEDS: SPIRIVA RESPIMAT 2.5 MCG 2 PUFF INH (08:28)
[2024-08-19] MEDS: SYMBICORT 80/4.5 MCG INHALER 2 PUFF INH ×2 (08:28→19:32)
--- NOTE | 2024-08-19 09:01 | W.PN.HOSP.TC ---
Today's Communication/Plan
-
IV Lasix. Oxygen. GDMT.
Assessment / Plan
Assessment / Plan
Physical exam:
General: Acutely ill
HEENT: Normocephalic, Atraumatic and Moist Mucous Membranes
Respiratory: Coarse crackles in the bases; Negative Wheezes, or Rhonchi
Cardiac: Regular Rhythm and S1/S2, systolic murmur, S4 gallop
GI: Soft, Nontender and Nondistended
Musculoskeletal: No Clubbing, No Cyanosis and bilateral edema
Neuro: Awake, Alert and Oriented
Psych: Calm
A/P:
Acute hypoxic respiratory insufficiency:
Related to heart failure and unclear if COPD contributing
Oxygen supplementation as needed
Will need to assess home oxygen needs
Acute on chronic HFrEF:
IV diuretics, IV Lasix 40 mg twice a day
BNP upon admission 12,300
Monitor strict I/O
Monitor daily weight
Monitor renal function and electrolytes
Reviewed latest echocardiogram on our system
Continue guideline-directed medical therapy for heart failure (GDMT)--> continue current regimen but defer to cardiology for changes. Continue SANTIAGO inhibitor and consider change to Entresto, continue metoprolol tartrate but consider change to to
metoprolol succinate. Poor candidate for SGLT2 inhibitor in the past.
Fluid restriction
Salt restriction
Heart failure education
Follow up clinical response
Cardiology consult appreciated
Elevated troponin:
Elevated troponin due to non-ischemic myocardial injury
CAD:
Continue dual antiplatelet therapy, Eliquis, nitrates, beta-blockers, SANTIAGO inhibitor.
Paroxysmal A-fib:
Continue rate control agents, B-Blockers
Continue antiarrhythmic agents, amiodarone
Continue anticoagulation, DOAC
Continue cardiac monitoring
PVD:
Continue Plavix and Eliquis and statins
Hypertension:
Continue home antihypertensives.
Monitor blood pressure and adjust medications accordingly.
Hyperlipidemia:
Continue home statins, atorvastatin 80 mg p.o. nightly
Diabetes mellitus type 2:
Continue insulin sliding scale
Hemoglobin A1c 7.5
Monitor blood sugar adjust medications according
COPD:
Continue Spiriva
Continue Symbicort
Albuterol as needed
Nicotine addiction:
Continue nicotine patch
DVT prophylaxis:
Continue Eliquis
CODE STATUS:
Full code
Total time spent on today's encounter was 52 minutes which included time spent in counseling the patient/family regarding diagnosis and treatment plan as listed above, goals of care, and symptom management. Case was discussed with nursing staff,
specialists, and care coordinators/case management. All labs and imaging personally reviewed by me. Remainder the time spent in detailed review of previous records, lab data, imaging, and other medical provider documentation.
Anticipated Discharge: > 48 hours
Subjective/Interval History
-
Date of Service: August 19, 2024
Objective Data
-
Labs:
Laboratory Results
08/19/24
06:32
WBC 10.6
Hgb 12.1 L
Hct 39.9
Plt Count 393
Sodium 138
Potassium 4.5
Chloride 93 L
Carbon Dioxide 39 H
BUN 21 H
Creatinine 0.8
Glucose 114 H
Calcium 9.3
Vital Signs:
Vital Signs
Temp Pulse Resp BP Pulse Ox
98.2 F 89 20 147/78 97
08/19/24 07:41 08/19/24 08:33 08/19/24 08:33 08/19/24 08:14 08/19/24 08:33
I&O
08/18/24 08/19/24 08/20/24
06:59 06:59 06:59
Output Total 2200 / 2200
Balance -2200 / -2200
[2024-08-19 10:22] LABS: Glycohemoglobin (HgbA1c) 7.5 % (4.0-5.6)
--- NOTE | 2024-08-19 10:38 | W.PN.CARDCBS ---
Today's Communication / Plan
-
Continue diuresis
Needs to continuing heart failure education
Impression / Plan
-
.
Dermatology Nurse: Dr Riggs
Impression:
Presentation with abd and LE edema
Acute hypoxic respiratory insufficiency
Acute heart failure likely heart failure with mildly reduced ejection fraction
Small to mod R pleural effusion by CXR
Elevated troponin, suspected nonischemic myocardial injury
CAD s/p remote CABG at [facility] and PCI at [place]
History of CVA 2010
NSVT
Paroxysmal atrial fibrillation/flutter
PAD, right femoral endarterectomy with saphenous vein angioplasty and right femoral to PT bypass August 04, 2023, Dr. Riley
Poor medical compliance
Osteomyelitis toe
COPD
HTN
HLD
DM2
Ongoing tobacco use
[facility] 06/17 admission
Recent cardiac testing:
- Echo 06/12/2024: EF 50%, basal inferior wall hypokinetic on parasternal short axis views, RV mildly dilated, mildly dilated RA, no significant valvular disease noted
- Echocardiogram July 28, 2023 finds normal LV size and function with LVEF in the low normal range estimated at 51% with basal to mid inferior wall severe hypokinesis. No significant valvular disease.
- Dobutamine nuclear stress test July 29, 2023 finds large inferior and basal inferior septal infarct without stephanie-infarct ischemia. Baseline LVEF 43%
Plan:
Ross Nelson is a 73 year old male with chronic HFrEF, CAD s/p CABG and PCI, PAD s/p R femoral endarterectomy with saphenous vein angioplasty and R femoral to PT bypass 08/16, COPD, DM, HTN, hyperlipidemia, remote CVA who presented to [place]
[facility] emergency department on 08/18/2024 with abdominal and LE edema. Had 2 prior admissions for CHF in last 2 months, one in 05/2024, and one in 06/2024. He has not been seen in office since last hospitalization. Compliance felt to be significant
issue. Noted to be hypoxic in ER today, improved on 3L NC. Not on home O2. ProBNP 07881. CXR with evidence of pulm edema and small to mod R effusion. Cardiology consulted for evaluation.
He presents with decompensated heart failure with mildly reduced ejection fraction. There is been no significant change in troponin (0.054, 0.066, 0.055)
- With IV Lasix weight is down (16 lbs? not accurate) and fluid balance is -2 L, renal function stable
Continue IV Lasix 40 mg IV twice daily (was on 40 mg orally once daily as an outpatient)
Keep potassium between 4 and 5 and magnesium between 2 and 3
- Continue SANTIAGO inhibitor, metoprolol tartrate has been changed to metoprolol succinate
- He has been felt to be a poor candidate for SGLT2 inhibitor (noncompliance, peripheral vascular disease)
- Continue with heart failure education, managing compliance issues will be critical. He reports to me that it will be very difficult for him to maintain dietary compliance.
Has history of atrial fibrillation and has been on amiodarone as an outpatient, currently maintaining sinus rhythm.
- Maintain amiodarone
- Continue Eliquis for atrial fibrillation related thromboembolic risk reduction
Has known severe peripheral vascular disease and underwent prior right lower extremity bypass July 2023
- He has been maintained on Plavix (also on Eliquis for AF related thromboembolic risk reduction)
Total time 55 min
Progress Note - Dermatology Nurse
Subjective
Date of Service: August 19, 2024
He reports that he does feel slightly less short of breath today. No chest pain palpitations or dizziness
Objective
Labs:
08/19/24 06:32
08/19/24 06:32
Labs
Hgb 12.1 g/dL (13.0-18.0) L 08/19/24 06:32
Hct 39.9 % (39.0-52.0) 08/19/24 06:32
Plt Count 393 10^3/uL (130-400) 08/19/24 06:32
PT 15.4 Sec (11.4-14.6) H 08/18/24 13:30
INR 1.24 08/18/24 13:30
APTT 29.0 Sec (23.4-35.0) 08/18/24 13:30
Sodium 138 mmol/L (135-145) 08/19/24 06:32
Potassium 4.5 mmol/L (3.5-5.1) 08/19/24 06:32
BUN 21 mg/dl (9-20) H 08/19/24 06:32
Creatinine 0.8 mg/dL (0.7-1.3) 08/19/24 06:32
Glucose 114 mg/dl (70-99) H 08/19/24 06:32
Troponins
08/18/24 08/19/24 08/19/24
13:30 01:06 06:32
Troponin I 0.054 H* 0.066 H* 0.055 H*
Vital Signs and I&O:
Vital Signs
Temp Pulse Resp BP Pulse Ox
98.2 F 89 20 147/78 97
08/19/24 07:41 08/19/24 08:33 08/19/24 08:33 08/19/24 08:14 08/19/24 08:33
Vital Signs
Temp Pulse Resp BP Pulse Ox
98.2 F 89 20 147/78 97
08/19/24 07:41 08/19/24 08:33 08/19/24 08:33 08/19/24 08:14 08/19/24 08:33
Intake & Output
08/17/24 08/18/24 08/19/24 08/20/24
06:59 06:59 06:59 06:59
Output Total 2200 / 2200
Balance -2200 / -2200
Physical Exam
Physical Exam
Appears mildly short of breath standing.
Elevated JVD
Regular rate and rhythm with normal S1 and S2, no S3, there is an S4, grade 2/6 apical holosystolic murmur and no rubs.
Lungs decreased breath sounds at both bases, poor inspiratory effort no wheezes or rales or rhonchi
Abdomen distended soft nontender, positive bowel sounds
Extremities +2 pitting edema bilateral lower extremities from the foot to the knees
[2024-08-19 12:18] LABS: Glucose - Point of Care 159 mg/dl (70-99)
[2024-08-19] MEDS: NOVOLOG FLEXPEN-LOW RESISTANCE 1 UNITS SC (13:49)
[2024-08-19 14:37] LABS: Troponin I 0.045 ng/ml
[2024-08-19 16:40] LABS: Glucose - Point of Care 126 mg/dl (70-99)
--- NOTE | 2024-08-19 17:12 | CM ---
Patient seen at bedside
IA completed
DX: heart failure
Patient lives with nephew in a 1 floor apartment with 1 flight to enter.
PLOF: Independent, no AD
DME: [employer]
States he was ordered home 02 last hospitalization and states nephew does not want 02 in apt.
Discussed the need for 02.
Had [facility] in past, [facility] in past.
PT recommends HH
Will discuss options with patient
PLAN: home, with visiting nurse
[2024-08-19] MEDS: LIPITOR 80 MG PO (20:00)
[2024-08-19 21:30] LABS: Glucose - Point of Care 142 mg/dl (70-99)
[2024-08-20 03:47] VITALS: BP 118/58
[2024-08-20 06:00] VITALS: BMI 30.5
[2024-08-20 07:36] LABS: Hematocrit 42.7 % (39.0-52.0); Hemoglobin 12.6 g/dL (13.0-18.0); Mean Corp Hgb Conc. 29.5 g/dL (33.0-37.0); Mean Corpuscular Hgb 26.1 pg (27.0-31.0); Mean Corpuscular Volume 88.4 fL (80.0-94.0); Mean Platelet Volume 9.9 fL (7.4-10.4); Platelet Count 373 10^3/uL (130-400); Red Blood Cell Count 4.83 10^6/uL (4.70-6.10); Red Cell Dist. Width 18.3 % (11.5-14.5); White Blood Cell Count 10.8 10^3/uL (4.8-10.8)
[2024-08-20 07:45] VITALS: BP 135/69
[2024-08-20 07:53] LABS: Glucose - Point of Care 121 mg/dl (70-99)
[2024-08-20 08:02] LABS: Blood Urea Nitrogen 24 mg/dl (9-20); Calcium 9.4 mg/dl (8.4-10.2); Chloride 89 mmol/L (98-107); Estimated Creatinine Clearance 85 ml/min; Glucose 111 mg/dl (70-99); Potassium 4.4 mmol/L (3.5-5.1); Sodium 138 mmol/L (135-145); eGFR > 60.00
[2024-08-20 08:21] LABS: Carbon Dioxide 35 mmol/L (22-30)
[2024-08-20] MEDS: SPIRIVA RESPIMAT 2.5 MCG 2 PUFF INH (08:26)
[2024-08-20] MEDS: SYMBICORT 80/4.5 MCG INHALER 2 PUFF INH ×2 (08:27→19:35)
[2024-08-20] MEDS: NOVOLOG FLEXPEN-LOW RESISTANCE SC ×2 (08:29→16:50)
[2024-08-20] MEDS: PACERONE 200 MG PO (08:31)
[2024-08-20] MEDS: FOLVITE 1 MG PO (08:31)
[2024-08-20] MEDS: ASPIR LOW (ENTERIC COATED) 81 MG PO (08:31)
[2024-08-20] MEDS: LOPRESSOR 50 MG PO ×2 (08:31→19:55)
[2024-08-20] MEDS: VITAMIN B1 100 MG PO (08:31)
[2024-08-20] MEDS: PLAVIX 75 MG PO (08:32)
[2024-08-20] MEDS: ELIQUIS 5 MG PO ×2 (08:32→19:55)
[2024-08-20] MEDS: ZESTRIL 40 MG PO (08:32)
[2024-08-20] MEDS: LASIX 40 MG IV ×2 (08:33→16:54)
[2024-08-20] MEDS: IMDUR (EXTENDED RELEASE) 60 MG PO (08:33)
[2024-08-20] MEDS: NICODERM TRANSDERMAL 14 MG TRANSDERM (08:33)
[2024-08-20] MEDS: ProAIR HFA INHALER 2 PUFF INH ×2 (08:49→19:34)
--- NOTE | 2024-08-20 09:23 | W.PN.HOSP.TC ---
Today's Communication/Plan
-
IV Lasix. IV antibiotic. Pulmonary eval
Assessment / Plan
Assessment / Plan
Physical exam:
General: Acutely ill
HEENT: Normocephalic, Atraumatic and Moist Mucous Membranes
Respiratory: Coarse crackles in the bases; bilateral wheezes, no Rhonchi
Cardiac: Regular Rhythm and S1/S2, systolic murmur, S4 gallop
GI: Soft, Nontender and Nondistended
Musculoskeletal: No Clubbing, No Cyanosis and bilateral edema. He also has prior scars from pvd in the right lower extremity. He also has erythema warmth and tenderness in the left lower extremity.
Neuro: Awake, Alert and Oriented
Psych: Calm
A/P:
Acute hypoxic respiratory insufficiency:
Related to heart failure and probably COPD contributing
Remains on 3 to 4 L of oxygen
Oxygen supplementation as needed
Will need to assess home oxygen needs
Discussed with cardiology who recommends to have pulmonary on board
Pulmonary consulted-discussed with pulmonary via [place] text today.
Acute on chronic HFrEF:
IV diuretics, IV Lasix 40 mg twice a day
BNP upon admission 12,300
Monitor strict I/O
Monitor daily weight
Monitor renal function and electrolytes
Reviewed latest echocardiogram on our system
Continue guideline-directed medical therapy for heart failure (GDMT)--> continue current regimen but defer to cardiology for changes. Continue SANTIAGO inhibitor and consider change to Entresto, continue metoprolol tartrate but consider change to to
metoprolol succinate. Poor candidate for SGLT2 inhibitor in the past.
Fluid restriction
Salt restriction
Heart failure education
Follow up clinical response
Cardiology consult appreciated
Left lower extremity cellulitis:
Start IV cefazolin today
Monitor for improvement
Elevated troponin:
Elevated troponin due to non-ischemic myocardial injury
CAD:
Continue dual antiplatelet therapy, Eliquis, nitrates, beta-blockers, SANTIAGO inhibitor.
Paroxysmal A-fib:
Continue rate control agents, B-Blockers
Continue antiarrhythmic agents, amiodarone
Continue anticoagulation, DOAC
Continue cardiac monitoring
PVD:
Continue Plavix and Eliquis and statins
Hypertension:
Continue home antihypertensives.
Monitor blood pressure and adjust medications accordingly.
Hyperlipidemia:
Continue home statins, atorvastatin 80 mg p.o. nightly
Diabetes mellitus type 2:
Continue insulin sliding scale
Hemoglobin A1c 7.5
Monitor blood sugar adjust medications according
COPD:
Continue Spiriva
Continue Symbicort
Albuterol as needed
Nicotine addiction:
Continue nicotine patch
DVT prophylaxis:
Continue Eliquis
CODE STATUS:
Full code
Total time spent on today's encounter was 52 minutes which included time spent in counseling the patient/family regarding diagnosis and treatment plan as listed above, goals of care, and symptom management. Case was discussed with nursing staff,
specialists, and care coordinators/case management. All labs and imaging personally reviewed by me. Remainder the time spent in detailed review of previous records, lab data, imaging, and other medical provider documentation.
Anticipated Discharge: > 48 hours
Subjective/Interval History
-
Date of Service: August 20, 2024
Patient still having shortness of breath and now having wheezing as well. He also has erythema left lower extremity and small ulceration on the back of his leg. Afebrile. No chest pain
Objective Data
-
Labs:
Laboratory Results
08/20/24 08/20/24
06:11 06:12
WBC 10.8
Hgb 12.6 L
Hct 42.7
Plt Count 373
Sodium 138
Potassium 4.4
Chloride 89 L
Carbon Dioxide 35 H
BUN 24 H
Creatinine 0.9
Glucose 111 H
Calcium 9.4
Vital Signs:
Vital Signs
Temp Pulse Resp BP Pulse Ox
98.2 F 101 18 135/69 94
08/20/24 07:45 08/20/24 09:02 08/20/24 09:02 08/20/24 08:31 08/20/24 09:02
I&O
08/19/24 08/20/24 08/21/24
06:59 06:59 06:59
Intake Total 620 / 620
Output Total 2200 / 2200 250 / 250
Balance -2200 / -2200 370 / 370
[2024-08-20 11:22] VITALS: BP 105/56
[2024-08-20 11:41] LABS: Glucose - Point of Care 233 mg/dl (70-99)
--- NOTE | 2024-08-20 11:45 | W.PN.CARDCBS ---
Today's Communication / Plan
-
Continue IV Lasix
Eval/treat concerning COPD
Impression / Plan
-
.
Crowning Inspector: Dr Riggs
Impression:
Presentation with abd and LE edema
Acute hypoxic respiratory insufficiency
Acute heart failure likely heart failure with mildly reduced ejection fraction
Small to mod R pleural effusion by CXR
Elevated troponin, suspected nonischemic myocardial injury
CAD s/p remote CABG at [facility] and PCI at [place]
History of CVA 2010
NSVT
Paroxysmal atrial fibrillation/flutter
PAD, right femoral endarterectomy with saphenous vein angioplasty and right femoral to PT bypass August 04, 2023, Dr. Riley
Poor medical compliance
Osteomyelitis toe
COPD
HTN
HLD
DM2
Ongoing tobacco use
[facility] 06/17 admission
Recent cardiac testing:
- Echo 06/12/2024: EF 50%, basal inferior wall hypokinetic on parasternal short axis views, RV mildly dilated, mildly dilated RA, no significant valvular disease noted
- Echocardiogram July 28, 2023 finds normal LV size and function with LVEF in the low normal range estimated at 51% with basal to mid inferior wall severe hypokinesis. No significant valvular disease.
- Dobutamine nuclear stress test July 29, 2023 finds large inferior and basal inferior septal infarct without stephanie-infarct ischemia. Baseline LVEF 43%
Plan:
Ross Nelson is a 73 year old male with chronic HFrEF, CAD s/p CABG and PCI, PAD s/p R femoral endarterectomy with saphenous vein angioplasty and R femoral to PT bypass 08/16, COPD, DM, HTN, hyperlipidemia, remote CVA who presented to [place]
[facility] emergency department on 08/18/2024 with abdominal and LE edema. Had 2 prior admissions for CHF in last 2 months, one in 05/2024, and one in 06/2024. He has not been seen in office since last hospitalization. Compliance felt to be significant
issue. Noted to be hypoxic in ER today, improved on 3L NC. Not on home O2. ProBNP 80107. CXR with evidence of pulm edema and small to mod R effusion. Cardiology consulted for evaluation.
He presents with decompensated heart failure with mildly reduced ejection fraction. There is been no significant change in troponin (0.054, 0.066, 0.055, 0.045)
- With IV Lasix weight is down 3 additional lbs overnight but fluid bal + (? accuracy), BUN/Creat rising
Clinically still volume overloaded, Continue IV lasix , follow renal function/lytes, keep potassium between 4 and 5 and magnesium between 2 and 3
- Continue SANTIAGO inhibitor, metoprolol tartrate has been changed to metoprolol succinate
- He has been felt to be a poor candidate for SGLT2 inhibitor (noncompliance, peripheral vascular disease)
- Continue with heart failure education, managing compliance issues will be critical. He reports to me that it will be very difficult for him to maintain dietary compliance.
He is wheezing this AM. He has h/o COPD
- Consider more aggressive eval/treatment of his underlying lung disease (communicated to primary service)
Has history of atrial fibrillation and has been on amiodarone as an outpatient, currently maintaining sinus rhythm.
- Maintain amiodarone
- Continue Eliquis for atrial fibrillation related thromboembolic risk reduction
Has known severe peripheral vascular disease and underwent prior right lower extremity bypass July 2023
- He has been maintained on Plavix (also on Eliquis for AF related thromboembolic risk reduction)
Total time 52 min
Progress Note - Crowning Inspector
Subjective
Date of Service: August 20, 2024
No CP, feels his breathing 'is tight'
Objective
Labs:
08/20/24 06:11
08/20/24 06:12
Labs
Hgb 12.6 g/dL (13.0-18.0) L 08/20/24 06:11
Hct 42.7 % (39.0-52.0) 08/20/24 06:11
Plt Count 373 10^3/uL (130-400) 08/20/24 06:11
PT 15.4 Sec (11.4-14.6) H 08/18/24 13:30
INR 1.24 08/18/24 13:30
APTT 29.0 Sec (23.4-35.0) 08/18/24 13:30
Sodium 138 mmol/L (135-145) 08/20/24 06:12
Potassium 4.4 mmol/L (3.5-5.1) 08/20/24 06:12
BUN 24 mg/dl (9-20) H 08/20/24 06:12
Creatinine 0.9 mg/dL (0.7-1.3) 08/20/24 06:12
Glucose 111 mg/dl (70-99) H 08/20/24 06:12
Troponins
08/18/24 08/19/24 08/19/24
13:30 01:06 06:32
Troponin I 0.054 H* 0.066 H* 0.055 H*
08/19/24
13:49
Troponin I 0.045 H*
Vital Signs and I&O:
Vital Signs
Temp Pulse Resp BP Pulse Ox
98.4 F 64 20 105/56 99
08/20/24 11:22 08/20/24 11:22 08/20/24 11:22 08/20/24 11:22 08/20/24 11:22
Vital Signs
Temp Pulse Resp BP Pulse Ox
98.4 F 64 20 105/56 99
08/20/24 11:22 08/20/24 11:22 08/20/24 11:22 08/20/24 11:22 08/20/24 11:22
Intake & Output
08/18/24 08/19/24 08/20/24 08/21/24
06:59 06:59 06:59 06:59
Intake Total 620 / 620
Output Total 2199 / 2199 250 / 250
Balance -0 / -2199 370 / 370
Physical Exam
Physical Exam
Appears mildly short of breath standing.
Elevated JVD
Regular rate and rhythm with normal S1 and S2, no S3, there is an S4, grade 2/6 apical holosystolic murmur and no rubs.
Lungs decreased breath sounds at both bases, poor inspiratory effort + wheezes today
Abdomen distended soft nontender, positive bowel sounds
Extremities +2 pitting edema bilateral lower extremities from the foot to the knees
--- NOTE | 2024-08-20 12:33 | CON.PUL ---
Consultation
Consultation Request
Date/Time Consultation Requested: 08/20/20241157
Date/Time Consultation Performed: 08/20/2024 - 1231
Requesting Provider: Dr. Bell
Performing Provider: Dr. Sheets
Reason for Consultation: Suspected COPD
Medical History
-
Chief Complaint: Worsening SOB + lower extremity/abdominal swelling
History of Present Illness:
73-year-old male active tobacco smoker with a past medical history of hyperlipidemia, hypertension, CAD, PAD s/p right femoral endarterectomy with femoral bypass and chronic HFpEF who presents with worsening SOB X 2 weeks with lower
extremity/abdominal swelling. In the ER he was afebrile to 98.1 �F, pulse rate 95, breathing at 22 breaths/min, BP 166/88 and saturating 86% on room air. Saturations improved to 95% with 3 L/min. Labs showed mild leukocytosis to 12, Hb 12.4, BUN
23, serum bicarbonate level 37, troponin 0.054, and proBNP 12,300. CXR showed moderate acute interstitial/alveolar cardiogenic pulmonary edema with a small left moderate size right-sided pleural effusion. He was started on IV diuretics, as well as
Symbicort/Spiriva (takes Trelegy at home), nicotine patch ordered and he was admitted to telemetry for further management. He has been wheezing and due to him having history of COPD, pulmonary service now consulted for additional
management/recommendations.
When I saw the patient he was resting in bed on 4 L/min breathing hallway. He does not use home O2. He carries a history of COPD but does not follow with a medical officer. He is prescribed Trelegy 100mcg and albuterol MDI prn. He uses albuterol
daily multiple times a day which helps him minimally feel better with his breathing. He reports being compliant with his inhalers. He normally brings up phlegm every day throughout the day and it is yellow in color and not worse during the morning
or any other time. He says that he is normally short of breath with intermittent wheezing and that he has been like that for months�years. He currently denies chest pain, KENNY, abdominal pain, nausea, fevers or chills.
PMHx: Hyperlipidemia, hypertension, CAD s/p CABG, history of hepatitis C, MARIJA, angina pectoris, PAD with history of right femoral endarterectomy with femoral bypass, chronic HFpEF, A-fib, reported history of COPD, NSVT, DM type II, history of
bedbugs (05/2024 admission), history of CVA (2010)
PSHx: Right femoral endarterectomy with femoral bypass, right greater toe debridement, CABG
Past Medical History
Past Medical History: Other (Above as per HPI)
Past Surgical History: Other (Above as per HPI)
Social History
Tobacco: Smoker (Hx of 1-1.5 PPD, now smoking <0.25PPD, and has been smoking since 20 years old)
Alcohol: Occasional
Drug: None
Personal: Single
Living: With Family (nephew)
Employment: Retired
Family History
Family History: CAD (Father: of a heart attack)
Allergies / Home Medications
Allergies
Allergy/AdvReac Type Severity Reaction Status Date / Time
Sulfa (Sulfonamide Allergy hives,itchi Verified 07/16/24 08:45
Antibiotics) ng
Home Medications
�Medication �Instructions �Recorded �Confirmed �Last Taken �Type
isosorbide mononitrate 60 mg 60 mg PO DAILY Heart 02/26/11 08/18/24 08/18/24 History
tablet,extended release 24 hr Disease/Condition
clopidogrel 75 mg tablet (Plavix) 75 mg PO DAILY Blood Clot 07/25/23 08/18/24 08/18/24 History
Prevention/Tx
fluticasone fur. 100 mcg-umeclid 1 inh inhalation R QPM 07/25/23 08/18/24 08/17/24 History
62.5 mcg-vilant 25 mcg Lung/Breathing Issues
inhalat.powder (Trelegy Ellipta)
atorvastatin 80 mg tablet 80 mg PO HS High Cholesterol 07/26/23 08/18/24 08/17/24 History
albuterol sulfate 90 mcg/actuation 2 puff inhalation R QIDPRN PRN sob 07/16/24 08/18/24 08/18/24 History
aerosol inhaler
folic acid 1 mg tablet 1 mg PO DAILY Supplement 07/16/24 08/18/24 08/18/24 History
lisinopril 40 mg tablet 40 mg PO DAILY Blood Pressure 07/16/24 08/18/24 08/18/24 History
amiodarone 200 mg tablet 200 mg PO DAILY Arrhythmia 30 days 07/24/24 08/18/24 08/18/24 Rx
#30 tabs
apixaban 5 mg tablet (Eliquis) 5 mg PO BID Blood clot 07/24/24 08/18/24 08/18/24 Rx
prevention/tx 30 days #60 tabs
aspirin 81 mg tablet,delayed 81 mg PO DAILY 30 days #30 tabs 07/24/24 08/18/24 08/18/24 Rx
release
furosemide 40 mg tablet 40 mg PO BID AT 0800,1600 30 days 07/24/24 08/18/24 08/18/24 Rx
#60 tabs
metoprolol tartrate 50 mg tablet 50 mg PO BID Blood Pressure 30 07/24/24 08/18/24 08/18/24 Rx
days #60 tabs
metformin 500 mg tablet 500 mg PO DAILY Diabetes 08/18/24 08/18/24 08/18/24 History
thiamine HCl (vitamin B1) 100 mg 100 mg PO DAILY Supplement 08/18/24 08/18/24 08/18/24 History
tablet
Review of Systems
-
History Source: Patient
All other systems: Negative unless noted
Vitals / Labs / Diagnostic Testing
Vital Signs
Temp Pulse Resp BP Pulse Ox
98 F 76 16 115/64 94
08/20/24 15:04 08/20/24 19:39 08/20/24 19:39 08/20/24 16:54 08/20/24 19:39
Lab Data
08/20/24 06:11
08/20/24 06:12
Diagnostic Testing:
Physical Exam
-
HEENT: Normocephalic and Anicteric
Cardiovascular: S1/S2, Rub (negative) and Peripheral Edema (+2 left lower extremity pitting edema; trace on RLE)
Respiratory: Wheeze (heard bilaterally upon expiration), Rales (bibasilar), Rhonchi (posterior RUL) and Non-Labored Respirations
GI: Soft, Non Distended, Non Tender and Normal Bowel Sounds
Neurology: AO x 3 and Tremors (negative)
Skin: Warm, Dry and Other (Left lower extremity distal erythema, warmth, tenderness to palpation)
General: Respiratory Distress (negative), Comfortable, Fever (negative), Chills (negative) and Sweats (negative)
Assessment
-
Assessment: 73-year-old male active tobacco smoker with a past medical history of hyperlipidemia, hypertension, CAD, PAD s/p right femoral endarterectomy with femoral bypass and chronic HFpEF who presents with worsening SOB X 2 weeks with lower
extremity/abdominal swelling. In the ER he was afebrile to 98.1 �F, pulse rate 95, breathing at 22 breaths/min, BP 166/88 and saturating 86% on room air. Saturations improved to 95% with 3 L/min. Labs showed mild leukocytosis to 12, Hb 12.4, BUN
23, serum bicarbonate level 37, troponin 0.054, and proBNP 12,300. CXR showed moderate acute interstitial/alveolar cardiogenic pulmonary edema with a small left moderate size right-sided pleural effusion. He was started on IV diuretics, as well as
Symbicort/Spiriva (takes Trelegy at home), nicotine patch ordered and he was admitted to telemetry for further management. He has been wheezing and due to him having history of COPD, pulmonary service now consulted for additional
management/recommendations.
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
history of bedbugs (05/2024 admission), history of CVA (2010)
Impression:
#Acute decompensated heart failure/acute on chronic HFpEF with interstitial/alveolar edema + small�moderate right-sided pleural effusion
#Acute respiratory failure with hypoxia on supplemental oxygen due to above
#Acute anemia (baseline Hb 14�15.5g/dL)
#Elevated serum bicarbonate level due to metabolic alkalosis likely due to chronic hypercapnia (blood gas from June 2024 showed compensated hypercapnia with pH 7.39, pCO2 73)
#Elevated troponin (0.066 on 08/19/2024)
#Left lower extremity distal erythema with warmth, edema and pain consistent with nonpurulent cellulitis
#Active tobacco smoker
#Suspected COPD due to tobacco use not in an acute exacerbation - of note, I do not see much emphysema on last LDCT Chest from 02/01/2024
#Paroxysmal A-fib/flutter on Eliquis
#CAD s/p CABG
#PAD with Hx of right femoral endarterectomy and femoral bypass
#DM type II (HbA1C: 7.5 on 08/19/2024)
Plan:
- Although patient has a history of COPD, I have no spirometry/PFTs to review to confirm this. He does not use oxygen at home and is currently on 4 L/min. Also he has a chronic cough and is chronically short of breath, both of which are at baseline
- Outpatient follow-up is recommended for full PFTs to confirm presence of COPD
- He reportedly takes Trelegy as an outpatient with prn albuterol, and these should be continued during current hospitalization
- Maintain SpO2 88-95% with supplemental O2 and wean down as tolerated
- Check ambulatory pulse oximetry prior to discharge
- Incentive spirometer encouraged
- Nicotine patch --> strongly urged him to stop smoking cigarettes immediately given risk of cancer, heart disease, cerebrovascular disease, AAA, heart failure and
- Although he is wheezing, this is likely a cardiac wheeze from acute pulmonary edema. He says that his phlegm production is at baseline and his degree of shortness of breath is also where it usually is. He says that wheezing is common for him.
- Continue with Symbicort + Spiriva with prn nebulized albuterol as stated above
- If hypoxia does not improve with diuresis then will start systemic steroids
- Continue with IV lasix to maintain net negative fluid balance
- Consider repeating echo
- Cardiology on board
- For his PAD, continue plavix + ASA; high intensity statin; follow up with vascular surgery in office
- His serum HCO3 level is elevated and he has a Hx of chronic hypercapnea. Check VBG tomorrow AM to assess stability of pH and pCO2
- His sHCO3 level is around his baseline, hence I do not expect him to have much of an acute component of hypercapnia currently
- Would start antibiotics to cover left lower extremity cellulitis
- Ancef started - would complete 5-7 days worth assuming erythema is improving
- Check LLE duplex to rule out DVT
- Continue amiodarone + Eliquis
- Replete electrolytes with K>4, Mg>2
- Maintain euglycemia with goal BG >100 and <180
- DVT ppx: Eliquis
Pulmonary service will continue to follow along. Of note, he already has an appointment with our pulmonary office on 08/30/2024 at 9:15 AM with Shirley MARTINEZ. I advised him to keep this appointment. If for some reason he is still
hospitalized at that time then we will reschedule.
Data:
CXR 08/18/2024:
1. Moderate acute interstitial and alveolar cardiogenic pulmonary edema.
2. New small to moderate-sized right pleural effusion with adjacent compressive atelectasis in the right lower and middle lobes.
3. Mild to moderate cardiomegaly.
4. Previous CABG surgery.
5. Multiple chronic healed bilateral lower rib fractures.
Prior cardiac studies:
Transthoracic echocardiogram 06/12/2024:
1. Left ventricle: Normal size. Low normal to mildly reduced LVEF visually
estimated at 50%. The basal inferior wall is hypokinetic on the parasternal
short axis views.
2. Right ventricle: Mildly dilated
3. Atria: Normal left atrial size with mildly dilated right atrium
4. Mitral valve: No mitral regurgitation
5. Aortic valve: Trileaflet. No aortic stenosis or aortic insufficiency
6. Tricuspid valve: No tricuspid regurgitation
7. When compared to the prior echocardiogram from 07/28/2023 there has been no
significant change.
Total time spent today was 59 minutes for this encounter. Time includes reviewing laboratory test/imaging results, reviewing pertinent medical records, obtaining and reviewing medical history, performing an appropriate exam, ordering medications,
tests and procedures. Time also includes documentation of this encounter, coordinating patient care and communicating with other healthcare professionals. Total time does not include separately billed tests performed on this date of service.
[2024-08-20] MEDS: NOVOLOG FLEXPEN-LOW RESISTANCE 2 UNITS SC (13:42)
[2024-08-20 15:04] VITALS: BP 106/52
[2024-08-20 16:41] LABS: Glucose - Point of Care 128 mg/dl (70-99)
[2024-08-20] MEDS: ANCEF 10 IV ×2 (16:54→23:52)
[2024-08-20 19:51] VITALS: BP 115/68
[2024-08-20] MEDS: LIPITOR 80 MG PO (19:55)
[2024-08-20 21:30] LABS: Glucose - Point of Care 136 mg/dl (70-99)
[2024-08-20] MEDS: MELATONIN 5 MG PO (23:51)
[2024-08-20 23:52] VITALS: BP 125/69
[2024-08-20] MEDS: TYLENOL 650 MG PO (23:52)
[2024-08-20] MEDS: FLUSH (NSS) 1 FLUSH IV (23:53)
[2024-08-21] VITALS (7 sets, daily range): BP systolic 109–141; BP diastolic 54–70; O2SAT 94; BMI 30.2
[2024-08-21] MEDS: SPIRIVA RESPIMAT 2.5 MCG 2 PUFF INH (07:22)
[2024-08-21] MEDS: ProAIR HFA INHALER 2 PUFF INH (07:22)
[2024-08-21] MEDS: SYMBICORT 80/4.5 MCG INHALER 2 PUFF INH ×2 (07:22→19:29)
[2024-08-21 07:42] LABS: Venous Blood Gas HCO3 49.3 mmol/L (22-27); Venous Blood Gas O2 Sat % 54.1 %; Venous Blood Gas pH 7.31 (7.32-7.43); Venous Blood Gas pO2 34 mmHg (30-50)
[2024-08-21 07:50] LABS: Venous Blood Gas pCO2 98 mmHg (35-48)
[2024-08-21 08:07] LABS: Glucose - Point of Care 131 mg/dl (70-99)
[2024-08-21 08:13] LABS: NT-proBNP 5140 pg/ml
[2024-08-21 08:24] LABS: % Basophils 0.7 % (0-2); % Eosinophils 0.9 % (0-6); % Immature Granulocytes 0.3 % (0-0.5); % Lymphocytes 10.4 % (20.5-51.1); % Monocytes 10.7 % (1.7-9.3); Absolute Basophils 0.1 10^3/uL (0-0.2); Absolute Eosinophils 0.1 10^3/uL (0-0.7); Absolute Lymphocytes 1.1 10^3/uL (1.2-3.4); Absolute Monocytes 1.1 10^3/uL (0.1-0.6); Absolute Neutrophils 8.1 10^3/uL (1.4-6.5); Hematocrit 44.6 % (39.0-52.0); Hemoglobin 12.8 g/dL (13.0-18.0); Mean Corp Hgb Conc. 28.7 g/dL (33.0-37.0); Mean Corpuscular Hgb 26.1 pg (27.0-31.0); Mean Corpuscular Volume 90.8 fL (80.0-94.0); Mean Platelet Volume 9.7 fL (7.4-10.4); Nucleated Red Blood Cells % 0.4 % (-); Platelet Count 383 10^3/uL (130-400); Red Blood Cell Count 4.91 10^6/uL (4.70-6.10); Red Cell Dist. Width 18.3 % (11.5-14.5); White Blood Cell Count 10.5 10^3/uL (4.8-10.8)
[2024-08-21] MEDS: NOVOLOG FLEXPEN-LOW RESISTANCE SC ×2 (08:42→17:03)
[2024-08-21 08:44] LABS: Blood Urea Nitrogen 24 mg/dl (9-20); Calcium 9.4 mg/dl (8.4-10.2); Chloride 86 mmol/L (98-107); Estimated Creatinine Clearance 85 ml/min; Glucose 121 mg/dl (70-99); Magnesium 1.8 mg/dl (1.6-2.3); Phosphorus 3.7 mg/dl (2.5-4.5); Potassium 4.3 mmol/L (3.5-5.1); Sodium 139 mmol/L (135-145); eGFR > 60.00
[2024-08-21 09:14] LABS: Carbon Dioxide 37 mmol/L (22-30)
[2024-08-21] MEDS: ANCEF 10 IV ×3 (09:22→23:25)
[2024-08-21] MEDS: ZESTRIL 40 MG PO (09:23)
[2024-08-21] MEDS: VITAMIN B1 100 MG PO (09:23)
[2024-08-21] MEDS: PACERONE 200 MG PO (09:23)
[2024-08-21] MEDS: LOPRESSOR 50 MG PO ×2 (09:23→20:29)
[2024-08-21] MEDS: ELIQUIS 5 MG PO ×2 (09:23→20:30)
[2024-08-21] MEDS: ASPIR LOW (ENTERIC COATED) 81 MG PO (09:24)
[2024-08-21] MEDS: LASIX 40 MG IV ×2 (09:24→17:04)
[2024-08-21] MEDS: NICODERM TRANSDERMAL 14 MG TRANSDERM (09:24)
[2024-08-21] MEDS: IMDUR (EXTENDED RELEASE) 60 MG PO (09:24)
[2024-08-21] MEDS: FOLVITE 1 MG PO (09:24)
[2024-08-21] MEDS: PLAVIX 75 MG PO (09:25)
--- NOTE | 2024-08-21 09:33 | W.PN.PUL3 ---
Today's Communication / Plan
-
Slow progress on SOB, will add oral prednisone taper
Diuresis ongoing per cards, noncompliance an issue
O2 eval eventually, he notes that his nephew will 'not allow' O2 at home due to use of scented candles in the home
CM consult for set up if needed/social issues at home
Pulmonary OP FU already arranged
PT/OT evals ongoing
Assessment
-
73-year-old male active tobacco smoker with a past medical history of hyperlipidemia, hypertension, CAD, PAD s/p right femoral endarterectomy with femoral bypass and chronic HFpEF who presents with worsening SOB X 2 weeks with lower
extremity/abdominal swelling. In the ER he was afebrile to 98.1 �F, pulse rate 95, breathing at 22 breaths/min, BP 166/88 and saturating 86% on room air. Saturations improved to 95% with 3 L/min. Labs showed mild leukocytosis to 12, Hb 12.4, BUN
23, serum bicarbonate level 37, troponin 0.054, and proBNP 12,300. CXR showed moderate acute interstitial/alveolar cardiogenic pulmonary edema with a small left moderate size right-sided pleural effusion. He was started on IV diuretics, as well as
Symbicort/Spiriva (takes Trelegy at home), nicotine patch ordered and he was admitted to telemetry for further management. He has been wheezing and due to him having history of COPD, pulmonary service now consulted for additional
management/recommendations.
Impression:
#Acute decompensated heart failure/acute on chronic HFpEF with interstitial/alveolar edema + small�moderate right-sided pleural effusion
#Acute respiratory failure with hypoxia on supplemental oxygen due to above
#Acute anemia (baseline Hb 14�15.5g/dL)
#Elevated serum bicarbonate level due to metabolic alkalosis likely due to chronic hypercapnia (blood gas from June 2024 showed compensated hypercapnia with pH 7.39, pCO2 73)
#Elevated troponin (0.066 on 08/19/2024)
#Left lower extremity distal erythema with warmth, edema and pain consistent with nonpurulent cellulitis
#Active tobacco smoker
#Severe COPD due to tobacco use not in an acute exacerbation
PFT 2022 - 1.43L 46%
#Paroxysmal A-fib/flutter on Eliquis
#CAD s/p CABG
#PAD with Hx of right femoral endarterectomy and femoral bypass
#DM type II (HbA1C: 7.5 on 08/19/2024)
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
history of bedbugs (05/2024 admission), history of CVA (2010)
Plan:
Severe COPD history, FEV1 1.43L 46% on hazel 2022
He does not use oxygen at home and is currently on 4 L/min.
Also he has a chronic cough and is chronically short of breath, both of which are at baseline
Outpatient follow-up is recommended for full PFTs to follow COPD
He reportedly takes Trelegy as an outpatient with prn albuterol, and these should be continued during current hospitalization
Maintain SpO2 88-95% with supplemental O2 and wean down as tolerated
Check ambulatory pulse oximetry prior to discharge
Incentive spirometer encouraged
Current ongoing smoker
Smoking cessation discussed >10 mins
Nicotine patch --> strongly urged him to stop smoking cigarettes immediately given risk of cancer, heart disease, cerebrovascular disease, AAA, heart failure and
Although he is wheezing, this is likely a cardiac wheeze from acute pulmonary edema.
He says that his phlegm production is at baseline and his degree of shortness of breath is also where it usually is. He says that wheezing is common for him.
Continue with Symbicort + Spiriva with prn nebulized albuterol as stated above
Does not feel significantly better, will start prednisone taper
Continue with IV lasix to maintain net negative fluid balance
- Consider repeating echo
- Cardiology on board
For his PAD, continue plavix + ASA; high intensity statin; follow up with vascular surgery in office
His serum HCO3 level is elevated and he has a Hx of chronic hypercapnea.
Check VBG tomorrow AM to assess stability of pH and pCO2--7.31/98/34/49.3
Chronic hypercarbia/Co2 retention is noted
Would start antibiotics to cover left lower extremity cellulitis
Ancef started - would complete 5-7 days worth assuming erythema is improving
LLE duplex to rule out DVT--negative
Continue amiodarone + Eliquis
- Replete electrolytes with K>4, Mg>2
- Maintain euglycemia with goal BG >100 and <180
- DVT ppx: Eliquis
Pulmonary service will continue to follow along. Of note, he already has an appointment with our pulmonary office on 08/30/2024 at 9:15 AM with Shirley MARTINEZ. I advised him to keep this appointment. If for some reason he is still
hospitalized at that time then we will reschedule.
Diagnostic Data
CXR 08/18/2024:
1. Moderate acute interstitial and alveolar cardiogenic pulmonary edema.
2. New small to moderate-sized right pleural effusion with adjacent compressive atelectasis in the right lower and middle lobes.
3. Mild to moderate cardiomegaly.
4. Previous CABG surgery.
5. Multiple chronic healed bilateral lower rib fractures.
Prior cardiac studies:
Transthoracic echocardiogram 06/12/2024:
1. Left ventricle: Normal size. Low normal to mildly reduced LVEF visually estimated at 50%. The basal inferior wall is hypokinetic on the parasternal short axis views.
2. Right ventricle: Mildly dilated
3. Atria: Normal left atrial size with mildly dilated right atrium
4. Mitral valve: No mitral regurgitation
5. Aortic valve: Trileaflet. No aortic stenosis or aortic insufficiency
6. Tricuspid valve: No tricuspid regurgitation
7. When compared to the prior echocardiogram from 07/28/2023 there has been no significant change.
Duplex 08/21/24: No evidence of left lower extremity deep venous thrombosis from the common femoral through the upper calf veins.
PFT 07/30/23: [place] 1.43L 46%, FVC 2.8L 67%, ratio 51 (severe obstruction)
-----
Total time spent today was 52 minutes for this encounter. Time includes reviewing laboratory test/imaging results, reviewing pertinent medical records, obtaining and reviewing medical history, performing an appropriate exam, ordering medications,
tests and procedures. Time also includes documentation of this encounter, coordinating patient care and communicating with other healthcare professionals. Total time does not include separately billed tests performed on this date of service.
Subjective Data
-
Date of Service:
Date of Service: August 21, 2024
Chief Complaint: Pulmonary Follow Up
Subjective:
Remains on o2, feels his breathing is steadily improving
no new complaints
Objective Data
Data Reviewed
Vital Signs / I&O / Oxygen:
Vital Signs
Temp Pulse Resp BP Pulse Ox
97.7 F 72 20 135/69 93
08/21/24 06:58 08/21/24 09:23 08/21/24 07:30 08/21/24 09:23 08/21/24 08:34
Intake and Output
08/20/24 08/21/24 08/22/24
06:59 06:59 06:59
Intake Total 620 / 620 1380 / 1380
Output Total 250 / 250 1875 / 1875
Balance 370 / 370 -495 / -495
SaO2 93
Nasal Cannula flow liters per 3
minute
Physical Exam
General: Comfortable and Other (NAD)
HEENT: Normocephalic, Anicteric and Moist Mucous Membranes
Cardiovascular: S1-S2, Regular Rhythm and Peripheral Edema
Respiratory: Crackles and Non-Labored Respirations
GI: Soft, Non Distended and Non Tender
Neurology: Awake, Alert, Oriented and No Motor Deficits
Skin: Warm, Dry and Good Color
Labs/Micro/Reports
Lab Data
08/21/24 07:21
08/21/24 07:20
--- NOTE | 2024-08-21 09:35 | W.PN.CARDCBS ---
Addendum entered and electronically signed by Cesar Hopkins DO 08/21/24 12:23:
I saw and examined the patient.
The Cna Per Diem's note was reviewed and I agree with the note.
Comment:
Plan:
Cont IV diuresis
He has long hx of noncompliance with meds and recommendations and appears to have little insight into the gravity of his disease.
Wt continues to come down.
pBNP coming down.
Cont HF teaching
Remains in sinus on amiodarone and Eliquis.
Outpt cardiac follow up to be arranged.
Pt may benefit from SNF but defer to primary service
Discussed with nursing.
Original Note:
Today's Communication / Plan
-
-continue IV diuretics
Impression / Plan
-
.
Scrap Charger: Dr Riggs
Impression:
Presentation with abd and LE edema
Acute hypoxic respiratory insufficiency
Acute heart failure likely heart failure with mildly reduced ejection fraction
Small to mod R pleural effusion by CXR
Elevated troponin, suspected nonischemic myocardial injury
CAD s/p remote CABG at [facility] and PCI at [place]
History of CVA 2010
NSVT
Paroxysmal atrial fibrillation/flutter
PAD, right femoral endarterectomy with saphenous vein angioplasty and right femoral to PT bypass August 04, 2023, Dr. Riley
Poor medical compliance
Osteomyelitis toe
COPD
HTN
HLD
DM2
Ongoing tobacco use
Hx bedbugs 06/17 admission
Recent cardiac testing:
- Echo 06/12/2024: EF 50%, basal inferior wall hypokinetic on parasternal short axis views, RV mildly dilated, mildly dilated RA, no significant valvular disease noted
- Echocardiogram July 28, 2023 finds normal LV size and function with LVEF in the low normal range estimated at 51% with basal to mid inferior wall severe hypokinesis. No significant valvular disease.
- Dobutamine nuclear stress test July 29, 2023 finds large inferior and basal inferior septal infarct without stephanie-infarct ischemia. Baseline LVEF 43%
Plan:
Ross Nelson is a 73 year old male with chronic HFrEF, CAD s/p CABG and PCI, PAD s/p R femoral endarterectomy with saphenous vein angioplasty and R femoral to PT bypass 08/16, COPD, DM, HTN, hyperlipidemia, remote CVA who presented to [facility] emergency department on 08/18/2024 with abdominal and LE edema. Had 2 prior admissions for CHF in last 2 months, one in 05/2024, and one in 06/2024. He has not been seen in office since last hospitalization. Compliance felt to be significant
issue. Noted to be hypoxic in ER today, improved on 3L NC. Not on home O2. ProBNP 02804. CXR with evidence of pulm edema and small to mod R effusion. Cardiology consulted for evaluation.
1. HF mildly reduced EF
-There is been no significant change in troponin (0.054, 0.066, 0.055, 0.045)
- With IV Lasix weight is down 2 additional lbs overnight, wt down 21 lbs since admission. Dry wt 185 lbs at time of last discharge on 07/24/23 for acute on chronic HFmildlyreduced EF. BUN/Creat/K stable
Clinically still volume overloaded, Continue IV lasix , follow renal function/lytes, keep potassium between 4 and 5 and magnesium between 2 and 3
-BNP down from admission. 08/18/24 12,300, 08/21/24 5140
- Continue SANTIAGO inhibitor, metoprolol tartrate has been changed to metoprolol succinate
-t/c addition of Spironolactone
- He has been felt to be a poor candidate for SGLT2 inhibitor (noncompliance, peripheral vascular disease)
- Continue with heart failure education, managing compliance issues will be critical. He reports to me that it will be very difficult for him to maintain dietary compliance. This is his 3rd admission in 3 months for decompensated HF.
2. COPD
- pulmonary consulted: wheezing thought to be due to acute pulm edema. If hypoxia doesn't improve with diuresis, plan to start systemic steroids. Check outpt PFTs. He has f/u apptmt with pulmonary scheduled. Continue Symbicort and Spiriva.
-remains on 3L O2
3. Has history of atrial fibrillation and has been on amiodarone as an outpatient.
-telemetry reviewed: NSR HR 60-70s.
- Maintain amiodarone
- Continue Eliquis for atrial fibrillation related thromboembolic risk reduction
4. PAD s/p right lower extremity bypass July 2023
- He has been maintained on Plavix (also on Eliquis for AF related thromboembolic risk reduction)
-started abx for cellulitis
Total time 42 min
Progress Note - Scrap Charger
Subjective
Date of Service: August 21, 2024
-LE edema gradually improving
-wt down 2 lbs overnight
Objective
Labs:
08/21/24 07:21
08/21/24 07:20
Labs
Hgb 12.8 g/dL (13.0-18.0) L 08/21/24 07:21
Hct 44.6 % (39.0-52.0) 08/21/24 07:21
Plt Count 383 10^3/uL (130-400) 08/21/24 07:21
PT 15.4 Sec (11.4-14.6) H 08/18/24 13:30
INR 1.24 08/18/24 13:30
APTT 29.0 Sec (23.4-35.0) 08/18/24 13:30
Sodium 139 mmol/L (135-145) 08/21/24 07:20
Potassium 4.3 mmol/L (3.5-5.1) 08/21/24 07:20
BUN 24 mg/dl (9-20) H 08/21/24 07:20
Creatinine 0.9 mg/dL (0.7-1.3) 08/21/24 07:20
Glucose 121 mg/dl (70-99) H 08/21/24 07:20
Troponins
08/18/24 08/19/24 08/19/24
13:30 01:06 06:32
Troponin I 0.054 H* 0.066 H* 0.055 H*
08/19/24
13:49
Troponin I 0.045 H*
Vital Signs and I&O:
Vital Signs
Temp Pulse Resp BP Pulse Ox
97.7 F 72 20 135/69 93
08/21/24 06:58 08/21/24 09:23 08/21/24 07:30 08/21/24 09:23 08/21/24 08:34
Vital Signs
Temp Pulse Resp BP Pulse Ox
97.7 F 72 20 135/69 93
08/21/24 06:58 08/21/24 09:23 08/21/24 07:30 08/21/24 09:23 08/21/24 08:34
Intake & Output
08/19/24 08/20/24 08/21/24 08/22/24
06:59 06:59 06:59 06:59
Intake Total 620 / 620 1380 / 1380
Output Total 2200 / 2200 250 / 250 1875 / 1875
Balance -2200 / -2200 370 / 370 -495 / -495
Physical Exam
Physical Exam
GEN: No distress, awake, Ox3
HEENT: supple, anicteric, mmm
LUNGS: + exp wheezing
CV: Reg, S1/S2, no murmur
ABD: soft, BS+, NT/ND
EXT: 2+ LLE edema, 1+ RLE edema
NEURO: Gross non-focal
SKIN: No rash
--- NOTE | 2024-08-21 10:04 | W.PN.HOSP.TC ---
Today's Communication/Plan
-
c/w IV Lasix
Empiric IV ABx, change to oral
follow with pulmonary recommendations, home O2 evaluation, PFT
Assessment / Plan
Assessment / Plan
Physical exam:
General: Chronically ill looking, no respiratory distress.
HEENT: Normocephalic, Atraumatic and Moist Mucous Membranes
Respiratory: No loud wheezes, chronic rhonchi.
Cardiac: Regular Rhythm and S1/S2, systolic murmur, S4 gallop
GI: Soft, Nontender and Nondistended
Musculoskeletal: No Clubbing, No Cyanosis and bilateral edema. He also has prior scars from pvd in the right lower extremity. He also has erythema warmth and tenderness in the left lower extremity.
Neuro: Awake, Alert and Oriented
Psych: Calm
A/P:
Acute hypoxic respiratory failure, SaO2 at 86 % on RA with respiratory distress on admission.
Related to heart failure and COPD with continued smoking.
Remains on 3 to 4 L of oxygen
Oxygen supplementation as needed
Will need to assess home oxygen needs
Suspect underlying chronic hypoxia that is not treated as pt continues to smoke ( he reports his house setting not suitable for oxygen)
Pulmonary is following
Acute on chronic HFrEF:
IV diuretics, IV Lasix 40 mg twice a day
BNP upon admission 12,300
Monitor strict I/O
Monitor daily weight
Monitor renal function and electrolytes
Reviewed latest echocardiogram on our system
Continue guideline-directed medical therapy for heart failure (GDMT)--> continue current regimen but defer to cardiology for changes. Continue SANTIAGO inhibitor and consider change to Entresto, continue metoprolol tartrate but consider change to to
metoprolol succinate. Poor candidate for SGLT2 inhibitor in the past.
Fluid restriction
Salt restriction
Heart failure education
Follow up clinical response
Cardiology consult appreciated
Left lower extremity cellulitis:
Start IV cefazolin today
Monitor for improvement
Elevated troponin:
Elevated troponin due to non-ischemic myocardial injury
CAD:
Continue dual antiplatelet therapy, Eliquis, nitrates, beta-blockers, SANTIAGO inhibitor.
Paroxysmal A-fib:
Continue rate control agents, B-Blockers
Continue antiarrhythmic agents, amiodarone
Continue anticoagulation, DOAC
Continue cardiac monitoring
PVD:
Continue Plavix and Eliquis and statins
Hypertension:
Continue home antihypertensives.
Monitor blood pressure and adjust medications accordingly.
Hyperlipidemia:
Continue home statins, atorvastatin 80 mg p.o. nightly
Diabetes mellitus type 2:
Continue insulin sliding scale
Hemoglobin A1c 7.5
Monitor blood sugar adjust medications according
COPD:
Continue Spiriva
Continue Symbicort
Albuterol as needed
Nicotine addiction:
Continue nicotine patch
DVT prophylaxis:
Continue Eliquis
CODE STATUS:
Full code
Total time spent to see the patient, examine the patient, review data and lab results, discuss treatment plan with patient, records management manager, nursing staff around 55 minutes
Anticipated Discharge: 24 - 48 hours
Subjective/Interval History
-
Date of Service: August 21, 2024
No pain in chest or abdomen
Objective Data
-
Labs:
Laboratory Results
08/21/24 08/21/24
07:20 07:21
WBC 10.5
Hgb 12.8 L
Hct 44.6
Plt Count 383
Sodium 139
Potassium 4.3
Chloride 86 L
Carbon Dioxide 37 H
BUN 24 H
Creatinine 0.9
Glucose 121 H
Calcium 9.4
Vital Signs:
Vital Signs
Temp Pulse Resp BP Pulse Ox
97.7 F 72 20 135/69 93
08/21/24 06:58 08/21/24 09:23 08/21/24 07:30 08/21/24 09:23 08/21/24 08:34
I&O
08/20/24 08/21/24 08/22/24
06:59 06:59 06:59
Intake Total 620 / 620 1380 / 1380
Output Total 250 / 250 1875 / 1875
Balance 370 / 370 -495 / -495
[2024-08-21 10:11] LABS: Normal RBC Morphology No
[2024-08-21 10:12] LABS: Acanthocytes 1+; Anisocytosis 1+; Hypochromasia 2+; Ovalocytes 1+; Polychromasia 1+; Target Cells 1+
[2024-08-21 12:17] LABS: Glucose - Point of Care 175 mg/dl (70-99)
--- NOTE | 2024-08-21 13:10 | PN.CDI ---
Addendum entered and electronically signed by Rosy Rahman MD 08/21/24 13:27:
pt reportedly has hypoxia at home but never documented as he refuses home O2 evaluation or the idea of having oxygen at home because he still smokes. Let me know by john vargas if you recommend something different..
Julia
Original Note:
CDI
- -
CDI:
Physician Documentation Request
Admit Date: 08/18/24 16:42
Dear Doctor Lacey,
Please review the following and provide your response in the progress notes.
Clinical Indicators:
- 08/18 ER Physician COPD - patient started on O2 for hypoxia however not using oxygen due to smoking
- 86% on room on admission - placed on 3L O2, 95%
- 08/21 PN 'Acute hypoxic respiratory failure, SaO2 at 86 % on RA with respiratory distress on admission'
Please clarify a diagnosis associated with the need for continuous use of home O2:
Chronic hypoxic respiratory failure requiring continuous use home O2
Hypoxia requiring intermittent home O2 use
Other (please specify)
Additional information for Respiratory Failure:
Recognized criteria for Respiratory Failure (Source: [facility] Hospitalist Aug 2013)
ABGs: (1 or more) Symptoms Please indicate type if known
1. p)2 <60 or RA SPO2 <91% on RA 1. Tachypnea, SOB, dyspnea Hypoxic
2. pCO2 50 and pH <7.35 2. Use of accessory muscles Hypercapnic
3. pO2 decrease of pCO2 increase by 3. Pallor or cyanosis Hypoxic and Hypercapnic
10 mmHg from baseline if known 4. Anxiety or restlessness Unable to determine
5. Unable to speak in full sentences
Supplemental O2 of > 40% (5LPM) Intubation is not required
Use of terms such as suspected, likely, concern for, or probable (associated with a specific diagnosis that is being evaluated, monitored, or treated as if it exists) are acceptable and can be coded in the inpatient setting, when documented at the
time of discharge.
Thank you,
Ashley Bray RN
CDI Specialist
Please use your independent medical judgment in providing your response.
[2024-08-21] MEDS: NOVOLOG FLEXPEN-LOW RESISTANCE 1 UNITS SC (13:32)
[2024-08-21] MEDS: DELTASONE 40 MG PO (15:27)
--- NOTE | 2024-08-21 16:11 | WOUNDNOTE ---
WON RN note: Patient admitted with CHF, Pleural effusion and hypoxia.
See H&P for complete history. Lives with nephew.
PMH: CHF,HEP C, PVD,CAD, NIDDM, CABG, R femoral bypass 2022, cardiac stents,current smoker, obesity.
Wound Location and type/assessment: Patient known to service for same venous leg ulcer and cellulitis of L leg. admitted with: L leg cellulitis and posterior lateral venous ulcer, yellow slough at base, scant drainage. Heels very dry and cracked,
legs dry. + pp audible with Doppler, 1-2+ edema. Sacrum is intact per nurse Shivam.
Appetite: Good.
Pressure redistribution devices in place: Accumax, is ad carmel, legs elevated.
Plan: applied A&D ointment today, will order mineral oil to start tomorrow. L leg honey gel, adaptic, silicone foam change daily, edi wrap knee high. Recommend leg elevation, weight loss, diabetes management and smoking cessation. Teaching done with
patient and sister who lives in [place] via speaker phone as requested by patient. Discussed reason for wound and what needs to be done for healing.
Will confirm orders with hospitalist and updated nurse. Updated care plan and will follow as needed.
Note to case management of equipment requested for discharge: VN for wound care. Smoking cessation programs. Recommend follow up at wound care center upon discharge.
[2024-08-21 16:46] LABS: Glucose - Point of Care 121 mg/dl (70-99)
--- NOTE | 2024-08-21 16:55 | CM ---
CM following for discharge; Ross would benefit from oxygen therapy at home and it is in the home already, however his nephew, with whom he lives is not agreeable to pt using it since there are candles and smoking in the home. Pt's daughter to
determine a plan for discharge to a safe environment where Ross will be able to utilize the O2. VM left for daughter requesting a call to discuss further.
CM to follow for discharge plan, await response from Ross's daughter.
[2024-08-21] MEDS: LIPITOR 80 MG PO (20:34)
[2024-08-21 21:45] LABS: Glucose - Point of Care 248 mg/dl (70-99)
[2024-08-21] MEDS: MELATONIN 5 MG PO (22:37)
[2024-08-22] VITALS (7 sets, daily range): BP systolic 118–151; BP diastolic 61–78; PULSE 72; O2SAT 98; BMI 30.4
[2024-08-22] MEDS: SYMBICORT 80/4.5 MCG INHALER 2 PUFF INH ×2 (07:29→19:41)
[2024-08-22] MEDS: SPIRIVA RESPIMAT 2.5 MCG 2 PUFF INH (07:29)
[2024-08-22 07:50] LABS: Glucose - Point of Care 136 mg/dl (70-99)
[2024-08-22] MEDS: NOVOLOG FLEXPEN-LOW RESISTANCE SC ×2 (08:12→12:15)
[2024-08-22] MEDS: NICODERM TRANSDERMAL 14 MG TRANSDERM (08:50)
[2024-08-22] MEDS: ANCEF 10 IV (08:51)
[2024-08-22] MEDS: LASIX 40 MG IV (08:51)
[2024-08-22] MEDS: FOLVITE 1 MG PO (08:52)
[2024-08-22] MEDS: ZESTRIL 40 MG PO (08:52)
[2024-08-22] MEDS: DELTASONE 40 MG PO (08:52)
[2024-08-22] MEDS: VITAMIN B1 100 MG PO (08:52)
[2024-08-22] MEDS: ASPIR LOW (ENTERIC COATED) 81 MG PO (08:52)
[2024-08-22] MEDS: PACERONE 200 MG PO (08:52)
[2024-08-22] MEDS: IMDUR (EXTENDED RELEASE) 60 MG PO (08:52)
[2024-08-22] MEDS: PLAVIX 75 MG PO (08:52)
[2024-08-22] MEDS: LOPRESSOR 50 MG PO (08:53)
[2024-08-22] MEDS: HYDROPHOR 1 APPLIC TOPICAL (09:03)
[2024-08-22] MEDS: ELIQUIS 5 MG PO ×2 (09:03→20:26)
--- NOTE | 2024-08-22 09:31 | W.PN.PUL3 ---
Today's Communication / Plan
-
Doing well, can continue taper at discharge
Home O2 eval
On IV diuresis per cards
Will arrange outpatient sleep study
Outpatient FU to be kept if can make it
Assessment
-
73-year-old male active tobacco smoker with a past medical history of hyperlipidemia, hypertension, CAD, PAD s/p right femoral endarterectomy with femoral bypass and chronic HFpEF who presents with worsening SOB X 2 weeks with lower
extremity/abdominal swelling. In the ER he was afebrile to 98.1 �F, pulse rate 95, breathing at 22 breaths/min, BP 166/88 and saturating 86% on room air. Saturations improved to 95% with 3 L/min. Labs showed mild leukocytosis to 12, Hb 12.4, BUN
23, serum bicarbonate level 37, troponin 0.054, and proBNP 12,300. CXR showed moderate acute interstitial/alveolar cardiogenic pulmonary edema with a small left moderate size right-sided pleural effusion. He was started on IV diuretics, as well as
Symbicort/Spiriva (takes Trelegy at home), nicotine patch ordered and he was admitted to telemetry for further management. He has been wheezing and due to him having history of COPD, pulmonary service now consulted for additional
management/recommendations.
Impression:
#Acute decompensated heart failure/acute on chronic HFpEF with interstitial/alveolar edema + small�moderate right-sided pleural effusion
#Acute respiratory failure with hypoxia on supplemental oxygen due to above
#Acute anemia (baseline Hb 14�15.5g/dL)
#Elevated serum bicarbonate level due to metabolic alkalosis likely due to chronic hypercapnia (blood gas from June 2024 showed compensated hypercapnia with pH 7.39, pCO2 73)
#Elevated troponin (0.066 on 08/19/2024)
#Left lower extremity distal erythema with warmth, edema and pain consistent with nonpurulent cellulitis
#Active tobacco smoker
#Severe COPD due to tobacco use not in an acute exacerbation
PFT 2022 - 1.43L 46%
#Paroxysmal A-fib/flutter on Eliquis
#CAD s/p CABG
#PAD with Hx of right femoral endarterectomy and femoral bypass
#DM type II (HbA1C: 7.5 on 08/19/2024)
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
history of bedbugs (05/2024 admission), history of CVA (2010)
Plan:
Severe COPD history, FEV1 1.43L 46% on 2022
He does not use oxygen at home and is currently on 3 L/min, 98%
Also he has a chronic cough and is chronically short of breath, both of which are at baseline
Outpatient follow-up is recommended for full PFTs to follow COPD
He reportedly takes Trelegy as an outpatient with prn albuterol, and these should be continued during current hospitalization
Maintain SpO2 88-95% with supplemental O2 and wean down as tolerated
Check ambulatory pulse oximetry prior to discharge
Incentive spirometer encouraged
Current ongoing smoker
Smoking cessation discussed >10 mins
Nicotine patch --> strongly urged him to stop smoking cigarettes immediately given risk of cancer, heart disease, cerebrovascular disease, AAA, heart failure and
Although he is wheezing, this is likely a cardiac wheeze from acute pulmonary edema.
He says that his phlegm production is at baseline and his degree of shortness of breath is also where it usually is. He says that wheezing is common for him.
Continue with Symbicort + Spiriva with prn nebulized albuterol as stated above
Does not feel significantly better, will start prednisone taper
Continue with IV lasix to maintain net negative fluid balance
Consider repeating echo
Cardiology on board
For his PAD, continue plavix + ASA; high intensity statin; follow up with vascular surgery in office
His serum HCO3 level is elevated and he has a Hx of chronic hypercapnea.
VBG reviewed--7.31/98/34/49.3
Chronic hypercarbia/Co2 retention is noted
Will need outpatient sleep study, we will arrange while inpatient
Would start antibiotics to cover left lower extremity cellulitis
Ancef started - would complete 5-7 days worth assuming erythema is improving
LLE duplex to rule out DVT--negative
Continue amiodarone + Eliquis
- Replete electrolytes with K>4, Mg>2
- Maintain euglycemia with goal BG >100 and <180
- DVT ppx: Eliquis
Pulmonary service will continue to follow along. Of note, he already has an appointment with our pulmonary office on 08/30/2024 at 9:15 AM with Shirley MARTINEZ. I advised him to keep this appointment. If for some reason he is still
hospitalized at that time then we will reschedule.
Diagnostic Data
CXR 08/18/2024:
1. Moderate acute interstitial and alveolar cardiogenic pulmonary edema.
2. New small to moderate-sized right pleural effusion with adjacent compressive atelectasis in the right lower and middle lobes.
3. Mild to moderate cardiomegaly.
4. Previous CABG surgery.
5. Multiple chronic healed bilateral lower rib fractures.
Prior cardiac studies:
Transthoracic echocardiogram 06/12/2024:
1. Left ventricle: Normal size. Low normal to mildly reduced LVEF visually estimated at 50%. The basal inferior wall is hypokinetic on the parasternal short axis views.
2. Right ventricle: Mildly dilated
3. Atria: Normal left atrial size with mildly dilated right atrium
4. Mitral valve: No mitral regurgitation
5. Aortic valve: Trileaflet. No aortic stenosis or aortic insufficiency
6. Tricuspid valve: No tricuspid regurgitation
7. When compared to the prior echocardiogram from 07/28/2023 there has been no significant change.
Duplex 08/21/24: No evidence of left lower extremity deep venous thrombosis from the common femoral through the upper calf veins.
PFT 07/30/23: Asher 1.43L 46%, FVC 2.8L 67%, ratio 51 (severe obstruction)
-----
Total time spent today was 52 minutes for this encounter. Time includes reviewing laboratory test/imaging results, reviewing pertinent medical records, obtaining and reviewing medical history, performing an appropriate exam, ordering medications,
tests and procedures. Time also includes documentation of this encounter, coordinating patient care and communicating with other healthcare professionals. Total time does not include separately billed tests performed on this date of service.
Subjective Data
-
Date of Service:
Date of Service: August 22, 2024
Chief Complaint: Pulmonary Follow Up
Subjective:
Better today, in better spirits as well
Not out of bed much, sparingly
Feels he did not sleep well overnight
Objective Data
Data Reviewed
Vital Signs / I&O / Oxygen:
Vital Signs
Temp Pulse Resp BP Pulse Ox
97.6 F 69 18 151/78 89
08/22/24 06:53 08/22/24 08:51 08/22/24 07:34 08/22/24 08:51 08/22/24 07:34
Intake and Output
08/21/24 08/22/24 08/23/24
06:59 06:59 06:59
Intake Total 1380 / 1380 1080 / 1080
Output Total 1875 / 1875 600 / 600
Balance -495 / -495 480 / 480
SaO2 89
Nasal Cannula flow liters per 3
minute
Physical Exam
General: Comfortable and Other (NAD)
HEENT: Normocephalic, Anicteric and Moist Mucous Membranes
Cardiovascular: S1-S2, Regular Rhythm and Peripheral Edema
Respiratory: Crackles and Non-Labored Respirations
GI: Soft, Non Distended and Non Tender
Neurology: Awake, Alert, Oriented and No Motor Deficits
Skin: Warm, Dry and Good Color
Labs/Micro/Reports
Lab Data
08/21/24 07:21
08/21/24 07:20
--- NOTE | 2024-08-22 10:30 | W.PN.HOSP.TC ---
Today's Communication/Plan
-
Treat restless leg syndrome, check ferritin and low dose ropinirole
taper oral prednisone slowly
Home O2, will need it at home
Change to oral Keflex
Change to oral Diuretics
DC likely in am
Assessment / Plan
Assessment / Plan
Physical exam:
General: Chronically ill looking, no respiratory distress.
HEENT: Normocephalic, Atraumatic and Moist Mucous Membranes
Respiratory: No loud wheezes, chronic rhonchi.
Cardiac: Regular Rhythm and S1/S2, systolic murmur, S4 gallop
GI: Soft, Nontender and Nondistended
Musculoskeletal: No Clubbing, No Cyanosis and bilateral edema. He also has prior scars from pvd in the right lower extremity. He also has erythema warmth and tenderness in the left lower extremity.
Neuro: Awake, Alert and Oriented
Psych: Calm
A/P:
# Restless leg syndrome
He can not sleep at night due to urge to move legs
Check iron/ ferritin level
Mg at 1.8
will do low dose ropinirole
# Acute on chronic hypoxic and hypercapnic respiratory failure, SaO2 at 70 % on RA today while sitting w/o nasal O2.
Related to heart failure and COPD with continued smoking.
Remains on 3 to 4 L of oxygen
Oxygen supplementation as needed
Will need to assess home oxygen needs
Suspect underlying chronic hypoxia that is not treated as pt continues to smoke ( he reports his house setting not suitable for oxygen)
Pulmonary is following
# Acute on chronic HFrEF:
IV diuretics, IV Lasix 40 mg twice a day
BNP upon admission 12,300
Monitor strict I/O
Monitor daily weight
Monitor renal function and electrolytes
Reviewed latest echocardiogram on our system
Continue guideline-directed medical therapy for heart failure (GDMT)--> continue current regimen. Continue SANTIAGO inhibitor and consider change to Entresto, continue metoprolol tartrate but consider change to to metoprolol succinate. Poor candidate
for SGLT2 inhibitor in the past.
Fluid restriction
Salt restriction
Heart failure education
Follow up clinical response
Cardiology consult appreciated
# Acute on Chronic hypercarbia/Co2 retention
c/w Trelegy
#Left lower extremity cellulitis:
Started IV cefazolin, change to oral Keflex.
Monitored for improvement
Elevated troponin:
Elevated troponin due to non-ischemic myocardial injury
CAD:
No chest pain
Continue dual antiplatelet therapy, Eliquis, nitrates, beta-blockers, SANTIAGO inhibitor.
Paroxysmal A-fib:
Continue rate control agents, B-Blockers
Continue antiarrhythmic agents, amiodarone
Continue anticoagulation, DOAC
Continue cardiac monitoring
PVD:
Continue Plavix and Eliquis and statins
Hypertension:
Continue home antihypertensives.
Monitor blood pressure and adjust medications accordingly.
Hyperlipidemia:
Continue home statins, atorvastatin 80 mg p.o. nightly
Diabetes mellitus type 2:
Continue insulin sliding scale
Hemoglobin A1c 7.5
Monitor blood sugar adjust medications according
COPD:
Continue Spiriva
Continue Symbicort
Albuterol as needed
Nicotine addiction:
Continue nicotine patch
DVT prophylaxis:
Continue Eliquis
CODE STATUS:
Full code
Total time spent to see the patient, examine the patient, review data and lab results, discuss treatment plan with patient, housing case manager, nursing staff around 57 minutes
Anticipated Discharge: Within 24 hours
Subjective/Interval History
-
Date of Service: August 22, 2024
Less sob
Could not sleep due to restless leg syndrome
Objective Data
-
Vital Signs:
Vital Signs
Temp Pulse Resp BP Pulse Ox
97.6 F 69 18 151/78 98
08/22/24 06:53 08/22/24 08:51 08/22/24 07:34 08/22/24 08:51 08/22/24 08:35
I&O
08/21/24 08/22/24 08/23/24
06:59 06:59 06:59
Intake Total 1380 / 1380 1080 / 1080
Output Total 1875 / 1875 600 / 600
Balance -495 / -495 480 / 480
--- NOTE | 2024-08-22 11:19 | W.PN.CARDCBS ---
Addendum entered and electronically signed by Shadi Riggs MD 08/22/24 11:50:
I saw and examined the patient.
The CLASSIFICATION CLERK or PA's note was reviewed and I agree with the note.
Comment: General: Well developed, well nourished in NAD.
Neck: Supple, no JVD, HJR, carotids +2 B/L, no bruits bilaterally.
Heart: Non displaced PMI, RRR, no murmurs, No S3, S4, no rubs.
Lungs: Scattered rhonchi and wheezes
Extremities: No clubbing, cyanosis or edema bilaterally.
Neuro: Grossly nonfocal, awake, alert and oriented x3.
Remains with CHF. Will increase Lasix 80 mg IV twice daily. Lopressor transition to Toprol. Will add Aldactone. Unfortunate compliance has been an issue as an outpatient. May need long-term placement
Original Note:
Today's Communication / Plan
-
increase IV lasix to 80mg BID
transitioned lopressor to toprol
add aldactone 12.5mg daily
BMPs ordered
wean supp O2
CM following. compliance necessary, unclear if able to live independently given recurrent admissions
Impression / Plan
-
.
Stem Roller Operator: Dr Riggs
Impression:
Presentation with abd and LE edema
Acute hypoxic respiratory insufficiency
Acute heart failure likely heart failure with mildly reduced ejection fraction
Small to mod R pleural effusion by CXR
Elevated troponin, suspected nonischemic myocardial injury
CAD s/p remote CABG at [facility] and PCI at [facility]
History of CVA 2010
NSVT
Paroxysmal atrial fibrillation/flutter
PAD, right femoral endarterectomy with saphenous vein angioplasty and right femoral to PT bypass August 04, 2023, Dr. Riley
Poor medical compliance
Osteomyelitis toe
COPD
HTN
HLD
DM2
Ongoing tobacco use
Hx bedbugs 06/17 admission
Recent cardiac testing:
- Echo 06/12/2024: EF 50%, basal inferior wall hypokinetic on parasternal short axis views, RV mildly dilated, mildly dilated RA, no significant valvular disease noted
- Echocardiogram July 28, 2023 finds normal LV size and function with LVEF in the low normal range estimated at 51% with basal to mid inferior wall severe hypokinesis. No significant valvular disease.
- Dobutamine nuclear stress test July 29, 2023 finds large inferior and basal inferior septal infarct without stephanie-infarct ischemia. Baseline LVEF 43%
Plan:
-3rd admission in 3 months for acute CHF. suspected medication and diet noncompliance
-remains grossly volume overloaded on exam. increase IV lasix to 80mg BID. Cr stable as of 08/21. ordered BMP
-transition lopressor to toprol given mild EF reduction. continue lisinopril. add aldactone 12.5mg daily. He has been felt to be a poor candidate for SGLT2 inhibitor (noncompliance, peripheral vascular disease)
-CHF education
-wean supp O2 as able. also with COPD, treatment per primary service
-trops mildly elevated and flat. no CP. suspected nonischemic myocardial injury
-remains in SR with PVCs upon review of tele. continue amiodarone, eliquis
-also on plavix given history of RLE bypass 07/2023
-CM following. suspect may need SNF upon DC if qualifies. unclear if able to take care of himself at home. compliance necessary
PREADMIT DATA:
Ross Nelson is a 73 year old male with chronic HFrEF, CAD s/p CABG and PCI, PAD s/p R femoral endarterectomy with saphenous vein angioplasty and R femoral to PT bypass 08/16, COPD, DM, HTN, hyperlipidemia, remote CVA who presented to [facility] emergency department on 08/18/2024 with abdominal and LE edema. Had 2 prior admissions for CHF in last 2 months, one in 05/2024, and one in 06/2024. He has not been seen in office since last hospitalization. Compliance felt to be significant
issue. Noted to be hypoxic in ER today, improved on 3L NC. Not on home O2. ProBNP [id number]. CXR with evidence of pulm edema and small to mod R effusion. Cardiology consulted for evaluation.
Progress Note - Stem Roller Operator
Subjective
Date of Service: August 22, 2024
resting comfortably
Objective
Labs:
08/21/24 07:21
08/21/24 07:20
Labs
Hgb 12.8 g/dL (13.0-18.0) L 08/21/24 07:21
Hct 44.6 % (39.0-52.0) 08/21/24 07:21
Plt Count 383 10^3/uL (130-400) 08/21/24 07:21
PT 15.4 Sec (11.4-14.6) H 08/18/24 13:30
INR 1.24 08/18/24 13:30
APTT 29.0 Sec (23.4-35.0) 08/18/24 13:30
Sodium 139 mmol/L (135-145) 08/21/24 07:20
Potassium 4.3 mmol/L (3.5-5.1) 08/21/24 07:20
BUN 24 mg/dl (9-20) H 08/21/24 07:20
Creatinine 0.9 mg/dL (0.7-1.3) 08/21/24 07:20
Glucose 121 mg/dl (70-99) H 08/21/24 07:20
Troponins
08/19/24
13:49
Troponin I 0.045 H*
Vital Signs and I&O:
Vital Signs
Temp Pulse Resp BP Pulse Ox
97.6 F 69 18 151/78 98
08/22/24 06:53 08/22/24 08:51 08/22/24 07:34 08/22/24 08:51 08/22/24 08:35
Vital Signs
Temp Pulse Resp BP Pulse Ox
97.6 F 69 18 151/78 98
08/22/24 06:53 08/22/24 08:51 08/22/24 07:34 08/22/24 08:51 08/22/24 08:35
Intake & Output
08/20/24 08/21/24 08/22/24 08/23/24
07:59 07:59 07:59 07:59
Intake Total 620 / 620 1380 / 1380 1080 / 1080
Output Total 250 / 250 1875 / 1875 600 / 600
Balance 370 / 370 -495 / -495 480 / 480
Physical Exam
Physical Exam
GEN: No distress, resting comfortably
HEENT: supple, mmm
LUNGS: mild exp wheezes B/L
CV: Reg, S1/S2, no murmur
ABD: soft, BS+, NT/ND
EXT: No cyanosis, clubbing. 4+ edema to level of thigh B/L
NEURO: Gross non-focal
SKIN: Warm, pink, dry. No rash. bypass scars of RLE
[2024-08-22] MEDS: KEFLEX 500 MG PO ×3 (12:00→22:23)
[2024-08-22 12:11] LABS: Blood Urea Nitrogen 24 mg/dl (9-20); Calcium 9.9 mg/dl (8.4-10.2); Chloride 84 mmol/L (98-107); Estimated Creatinine Clearance 95 ml/min; Glucose 169 mg/dl (70-99); Iron 32 ug/dl (49-181); Potassium 4.1 mmol/L (3.5-5.1); Sodium 138 mmol/L (135-145); eGFR > 60.00
[2024-08-22 12:12] LABS: Glucose - Point of Care 134 mg/dl (70-99)
[2024-08-22 12:47] LABS: Ferritin 47.3 ng/ml (17.9-464.0)
[2024-08-22 13:09] LABS: Carbon Dioxide 42 mmol/L (22-30)
[2024-08-22 17:11] LABS: Glucose - Point of Care 191 mg/dl (70-99)
[2024-08-22] MEDS: LASIX 80 MG IV (17:17)
[2024-08-22] MEDS: NOVOLOG FLEXPEN-LOW RESISTANCE 1 UNITS SC (17:20)
[2024-08-22] MEDS: TOPROL XL 50 MG PO (20:26)
[2024-08-22 21:25] LABS: Glucose - Point of Care 220 mg/dl (70-99)
[2024-08-22] MEDS: MELATONIN 5 MG PO (22:23)
[2024-08-22] MEDS: REQUIP 0.25 MG PO (22:23)
[2024-08-22] MEDS: LIPITOR 80 MG PO (22:23)
[2024-08-22] MEDS: TYLENOL 650 MG PO (23:13)
[2024-08-23] MEDS: MELATONIN 3 MG PO (02:31)
[2024-08-23 03:38] VITALS: BP 149/82
[2024-08-23] MEDS: TYLENOL 650 MG PO (05:19)
[2024-08-23 06:00] VITALS: BMI 29.6
[2024-08-23] MEDS: SPIRIVA RESPIMAT 2.5 MCG 2 PUFF INH (07:26)
[2024-08-23] MEDS: SYMBICORT 80/4.5 MCG INHALER 2 PUFF INH (07:26)
[2024-08-23 08:00] VITALS: BP 121/70
[2024-08-23 08:05] LABS: Glucose - Point of Care 186 mg/dl (70-99)
[2024-08-23] MEDS: NICODERM TRANSDERMAL 14 MG TRANSDERM (09:01)
[2024-08-23] MEDS: PACERONE 200 MG PO (09:02)
[2024-08-23] MEDS: TOPROL XL 50 MG PO (09:02)
[2024-08-23] MEDS: DELTASONE 40 MG PO (09:02)
[2024-08-23] MEDS: ASPIR LOW (ENTERIC COATED) 81 MG PO (09:02)
[2024-08-23] MEDS: KEFLEX 500 MG PO ×2 (09:03→12:37)
[2024-08-23] MEDS: FOLVITE 1 MG PO (09:03)
[2024-08-23] MEDS: VITAMIN B1 100 MG PO (09:03)
[2024-08-23] MEDS: LASIX 80 MG IV (09:03)
[2024-08-23] MEDS: PLAVIX 75 MG PO (09:03)
[2024-08-23] MEDS: IMDUR (EXTENDED RELEASE) 60 MG PO (09:03)
[2024-08-23] MEDS: ELIQUIS 5 MG PO (09:03)
[2024-08-23] MEDS: ZESTRIL 40 MG PO (09:03)
[2024-08-23] MEDS: HYDROPHOR 1 APPLIC TOPICAL (09:04)
[2024-08-23] MEDS: NOVOLOG FLEXPEN-LOW RESISTANCE 1 UNITS SC ×2 (09:04→12:36)
[2024-08-23 09:10] LABS: Blood Urea Nitrogen 29 mg/dl (9-20); Chloride 82 mmol/L (98-107); Estimated Creatinine Clearance 85 ml/min; Glucose 109 mg/dl (70-99); Potassium 4.3 mmol/L (3.5-5.1); Sodium 141 mmol/L (135-145); eGFR > 60.00
[2024-08-23 09:32] LABS: Carbon Dioxide 42 mmol/L (22-30)
--- NOTE | 2024-08-23 09:45 | W.PN.HOSP.TC ---
Today's Communication/Plan
-
Discharge
Assessment / Plan
Assessment / Plan
Physical exam:
General: Chronically ill looking, no respiratory distress.
HEENT: Normocephalic, Atraumatic and Moist Mucous Membranes
Respiratory: No loud wheezes, chronic rhonchi.
Cardiac: Regular Rhythm and S1/S2, systolic murmur, S4 gallop
GI: Soft, Nontender and Nondistended
Musculoskeletal: No Clubbing, No Cyanosis and bilateral edema. He also has prior scars from pvd in the right lower extremity. He also has erythema warmth and tenderness in the left lower extremity.
Neuro: Awake, Alert and Oriented
Psych: Calm
A/P:
# Restless leg syndrome
He can not sleep at night due to urge to move legs
low iron/ ferritin level less than 75ng/ml, will do oral iron.
Mg at 1.8
He would like to c/w ropinirole but try higher dose
# Acute on chronic hypoxic and hypercapnic respiratory failure, seems to resolve
Related to heart failure and COPD with continued smoking.
Will need to assess home oxygen before discharge
Suspect underlying chronic hypoxia that is not treated as pt continues to smoke ( he reports his house setting not suitable for oxygen)
Pulmonary is following
# Acute on chronic HFrEF:
IV diuretics, IV Lasix 40 mg twice a day
BNP upon admission 12,300
Monitored daily weight
Monitored renal function and electrolytes
Reviewed latest echocardiogram on our system
Continue guideline-directed medical therapy for heart failure (GDMT)--> continue current regimen. Continue SANTIAGO inhibitor and consider change to Entresto, continue metoprolol tartrate but consider change to to metoprolol succinate. Poor candidate
for SGLT2 inhibitor in the past.
Heart failure education was provided.
Cardiology consult appreciated
# Acute on Chronic hypercarbia/Co2 retention
c/w Trelegy
#Left lower extremity cellulitis:
Started IV cefazolin, changed to oral Keflex for total 7 days course.
Monitored for improvement
Elevated troponin:
Elevated troponin due to non-ischemic myocardial injury
CAD:
No chest pain
Continue dual antiplatelet therapy, Eliquis, nitrates, beta-blockers, SANTIAGO inhibitor.
Paroxysmal A-fib:
Continue rate control agents, B-Blockers
Continue antiarrhythmic agents, amiodarone
Continue anticoagulation, DOAC
Continue cardiac monitoring
PVD:
Continue Plavix, Eliquis and statins
Essential Hypertension:
Continue home antihypertensives.
Monitor blood pressure and adjust medications accordingly.
Hyperlipidemia:
Continue home statins, atorvastatin 80 mg p.o. nightly
Diabetes mellitus type 2:
Continue insulin sliding scale
Hemoglobin A1c 7.5
Monitor blood sugar adjust medications according
COPD:
Continue Spiriva
Continue Symbicort
Albuterol as needed
Nicotine addiction:
Continue nicotine patch
DVT prophylaxis:
Continue Eliquis
CODE STATUS:
Full code
Total discharge time spent to see the patient, examine the patient, review data and lab results, discuss discharge plan with patient, correctional counselor/case manager, nursing staff around 67 minutes
Anticipated Discharge: Today
Subjective/Interval History
-
Date of Service: August 23, 2024
Doing well
Would like to go home
testing for home O2
Objective Data
-
Labs:
Laboratory Results
08/23/24
07:02
Sodium 141
Potassium 4.3
Chloride 82 L
Carbon Dioxide 42 H
BUN 29 H
Creatinine 0.8
Glucose 109 H
Calcium 10.0
Vital Signs:
Vital Signs
Temp Pulse Resp BP Pulse Ox
98.4 F 86 22 121/70 93
08/23/24 08:00 08/23/24 09:02 08/23/24 08:00 08/23/24 09:02 08/23/24 08:00
I&O
08/22/24 08/23/24 08/24/24
06:59 06:59 06:59
Intake Total 1080 / 1080 720 / 720
Output Total 600 / 600
Balance 480 / 480 720 / 720
[2024-08-23 11:37] LABS: Glucose - Point of Care 162 mg/dl (70-99)
[2024-08-23 11:50] VITALS: BP 133/60
--- NOTE | 2024-08-23 11:52 | W.PN.PUL3 ---
Today's Communication / Plan
-
Home O2 eval showing need for o2 with ambulation, will likely need home O2 set up
IV diuresis per cards ongoing
Otherwise, can eval for discharge once cleared by cards
We discussed OP follow up, set up for sleep study
Encouraged otherwise OOB/ambulation
Assessment
-
73-year-old male active tobacco smoker with a past medical history of hyperlipidemia, hypertension, CAD, PAD s/p right femoral endarterectomy with femoral bypass and chronic HFpEF who presents with worsening SOB X 2 weeks with lower
extremity/abdominal swelling. In the ER he was afebrile to 98.1 �F, pulse rate 95, breathing at 22 breaths/min, BP 166/88 and saturating 86% on room air. Saturations improved to 95% with 3 L/min. Labs showed mild leukocytosis to 12, Hb 12.4, BUN
23, serum bicarbonate level 37, troponin 0.054, and proBNP 12,300. CXR showed moderate acute interstitial/alveolar cardiogenic pulmonary edema with a small left moderate size right-sided pleural effusion. He was started on IV diuretics, as well as
Symbicort/Spiriva (takes Trelegy at home), nicotine patch ordered and he was admitted to telemetry for further management. He has been wheezing and due to him having history of COPD, pulmonary service now consulted for additional
management/recommendations.
Impression:
#Acute decompensated heart failure/acute on chronic HFpEF with interstitial/alveolar edema + small�moderate right-sided pleural effusion
#Acute respiratory failure with hypoxia on supplemental oxygen due to above
#Acute anemia (baseline Hb 14�15.5g/dL)
#Elevated serum bicarbonate level due to metabolic alkalosis likely due to chronic hypercapnia (blood gas from June 2024 showed compensated hypercapnia with pH 7.39, pCO2 73)
#Elevated troponin (0.066 on 08/19/2024)
#Left lower extremity distal erythema with warmth, edema and pain consistent with nonpurulent cellulitis
#Active tobacco smoker
#Severe COPD due to tobacco use not in an acute exacerbation
PFT 2023 - 1.43L 46%
#Paroxysmal A-fib/flutter on Eliquis
#CAD s/p CABG
#PAD with Hx of right femoral endarterectomy and femoral bypass
#DM type II (HbA1C: 7.5 on 08/19/2024)
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
history of bedbugs (05/2024 admission), history of CVA (2010)
Plan:
Severe COPD history, FEV1 1.43L 46% on hazel 2022
Also he has a chronic cough and is chronically short of breath, both of which are at baseline
Outpatient follow-up is recommended for full PFTs to follow COPD
He reportedly takes Trelegy as an outpatient with prn albuterol, and these should be continued during current hospitalization
He does not use oxygen at home and is currently on 2 L/min, 98%
Maintain SpO2 88-95% with supplemental O2 and wean down as tolerated
Check ambulatory pulse oximetry prior to discharge--needs 2L with ambulation, no O2 needed at rest
Incentive spirometer encouraged
Current ongoing smoker
Smoking cessation discussed >10 mins
Nicotine patch --> strongly urged him to stop smoking cigarettes immediately given risk of cancer, heart disease, cerebrovascular disease, AAA, heart failure and
Although he is wheezing, this is likely a cardiac wheeze from acute pulmonary edema.
He says that his phlegm production is at baseline and his degree of shortness of breath is also where it usually is. He says that wheezing is common for him.
Continue with Symbicort + Spiriva with prn nebulized albuterol as stated above
Does not feel significantly better, will start prednisone taper
Continue with IV lasix to maintain net negative fluid balance
Consider repeating echo
Cardiology on board
For his PAD, continue plavix + ASA; high intensity statin; follow up with vascular surgery in office
His serum HCO3 level is elevated and he has a Hx of chronic hypercapnea.
VBG reviewed--7.31/98/34/49.3
Chronic hypercarbia/Co2 retention is noted
Will need outpatient sleep study, we will arrange while inpatient
Would start antibiotics to cover left lower extremity cellulitis
Ancef started - would complete 5-7 days worth assuming erythema is improving
LLE duplex to rule out DVT--negative
Continue amiodarone + Eliquis
- Replete electrolytes with K>4, Mg>2
- Maintain euglycemia with goal BG >100 and <180
- DVT ppx: Eliquis
Pulmonary service will continue to follow along. Of note, he already has an appointment with our pulmonary office on 08/30/2024 at 9:15 AM with Shirley MARTINEZ. I advised him to keep this appointment. If for some reason he is still
hospitalized at that time then we will reschedule.
Diagnostic Data
CXR 08/18/2024:
1. Moderate acute interstitial and alveolar cardiogenic pulmonary edema.
2. New small to moderate-sized right pleural effusion with adjacent compressive atelectasis in the right lower and middle lobes.
3. Mild to moderate cardiomegaly.
4. Previous CABG surgery.
5. Multiple chronic healed bilateral lower rib fractures.
Prior cardiac studies:
Transthoracic echocardiogram 06/12/2024:
1. Left ventricle: Normal size. Low normal to mildly reduced LVEF visually estimated at 50%. The basal inferior wall is hypokinetic on the parasternal short axis views.
2. Right ventricle: Mildly dilated
3. Atria: Normal left atrial size with mildly dilated right atrium
4. Mitral valve: No mitral regurgitation
5. Aortic valve: Trileaflet. No aortic stenosis or aortic insufficiency
6. Tricuspid valve: No tricuspid regurgitation
7. When compared to the prior echocardiogram from 07/28/2023 there has been no significant change.
Duplex 08/21/24: No evidence of left lower extremity deep venous thrombosis from the common femoral through the upper calf veins.
PFT 07/30/23: Hazel 1.43L 46%, FVC 2.8L 67%, ratio 51 (severe obstruction)
-----
Total time spent today was 52 minutes for this encounter. Time includes reviewing laboratory test/imaging results, reviewing pertinent medical records, obtaining and reviewing medical history, performing an appropriate exam, ordering medications,
tests and procedures. Time also includes documentation of this encounter, coordinating patient care and communicating with other healthcare professionals. Total time does not include separately billed tests performed on this date of service.
Subjective Data
-
Date of Service:
Date of Service: August 23, 2024
Chief Complaint: Pulmonary Follow Up
Subjective:
no new events ON, remains on 2L NC
no new complaints
Objective Data
Data Reviewed
Vital Signs / I&O / Oxygen:
Vital Signs
Temp Pulse Resp BP Pulse Ox
97.9 F 70 20 133/60 93
08/23/24 11:50 08/23/24 11:50 08/23/24 11:50 08/23/24 11:50 08/23/24 08:50
Intake and Output
08/22/24 08/23/24 08/24/24
06:59 06:59 06:59
Intake Total 1080 / 1080 720 / 720
Output Total 600 / 600
Balance 480 / 480 720 / 720
SaO2 93
Nasal Cannula flow liters per 2
minute
Physical Exam
General: Comfortable and Other (NAD)
HEENT: Normocephalic, Anicteric and Moist Mucous Membranes
Cardiovascular: S1-S2, Regular Rhythm and Peripheral Edema
Respiratory: Crackles and Non-Labored Respirations
GI: Soft, Non Distended and Non Tender
Neurology: Awake, Alert, Oriented and No Motor Deficits
Skin: Warm, Dry and Good Color
Labs/Micro/Reports
Lab Data
08/21/24 07:21
08/23/24 07:02
--- NOTE | 2024-08-23 12:58 | CM ---
Addendum entered by Shaina Virgen 08/23/24 14:05:
DANIKA met with Ross and RN to discuss discharge. Ross is agreeable to discharge with [facility] and home O2. [facility] has provided previously and I contacted them to arrange for O2 delivery to the hospital and concentrator delivery to the home.
DANIKA and RN discussed asking his nephew to go outside to smoke which Ross felt was a good plan, but later stated that his nephew may not be willing to do so. They are both on the lease and share the rent cost; Ross advised that his nephew
wouldn't be able to afford to pay for rent on his onw, so he is hopeful that his nephew will go outside to smoke.
Original Note:
DANIKA met with Lakihsa Lan, [employer] Protective Service Appeals Referee, this afternoon. She met with Ross prior to meeting with me. She did not provide information about her plan, but was advised that he was being discharged today.
Call placed to Lakisha Castro and left requesting return call, as Ross is stating that he is not being discharged today.
Await return call and will speak further with Ross.
--- NOTE | 2024-08-23 13:49 | VNURNOTE ---
Home Health Liaison met with patient at bedside to discuss [facility] nurse/therapy, visits, schedule and homebound status. Earlier in month, patient signed onto to [facility] for one visit and then refused further visits. Discussed expectations of visits at
home 2-3 x per week to assess and teach medical management and wound care. Patient now agreeable to visits throughout the week and states he will not refuse after one. He confirms he has a scale at home. Home 02 set up through DANIKA Saavedra
arranging. [facility] brochure provided with contact information. Patient is aware that [facility] will contact them for start of care in 1-2 days after discharge from . [facility] referral completed in [facility].
--- NOTE | 2024-08-23 14:36 | CM ---
Addendum entered by Shaina Virgen 08/23/24 15:16:
DANIKA spoke with Ross's nephew, Thaddeus, to determine transport plans. Thaddeus was going to wait at home for the O2 delivery, however when he realized the O2 would not be delivered until Ross is home, he advised that he would come to pick Ross up
between 4pm/4:30pm.
Original Note:
DANIKA met with Ross along with RNMD and [facility] Track Mechanic to discuss discharge to home with O2 concentrator and portable O2. Ross is agreeable to discharge; is aware that candles and smoking are not safe with the O2 in the home.
DANIKA spoke with Ross earlier regarding asking his nephew to only smoke outside. At that time he felt that his nephew would be willing to agree to this.
Plan: Pt has agreed to [facility] to deliver O2 concentrator to home today. Portable O2 is in Ross's room at this time for him to go home. His nephew is to provide transport home.
--- NOTE | 2024-08-23 14:37 | W.PN.CARDCBS ---
Addendum entered and electronically signed by Donnell Faye MD 08/23/24 15:48:
I saw and examined the patient.
The Correction Officer Head's note was reviewed and I agree with the note.
Comment: Briefly, 73-year-old man presenting with worsening lower extremity edema found to be hypoxic concerning for combination of decompensated heart failure with reduced ejection fraction as well as COPD exacerbation
Still requiring supplemental oxygen today, tentative plan for him to be discharged on home O2
Plan to increase Lasix dose to 60 mg p.o. twice daily
Continue prior cardiac meds�Eliquis/Plavix, amiodarone, metoprolol, lisinopril
Would likely benefit from addition of Aldactone in the future
Outpatient cardiology follow-up arranged
Original Note:
Today's Communication / Plan
-
po lasix 60mg BID
home O2
eliquis, plavix, amiodarone, toprol, lisinopril. consider addition of aldactone as OP if compliant with follow up
OP cardiac follow up arranged
Impression / Plan
-
.
Executive Meeting Manager: Dr Riggs
Impression:
Presentation with abd and LE edema
Acute hypoxic respiratory insufficiency
Acute heart failure likely heart failure with mildly reduced ejection fraction
Small to mod R pleural effusion by CXR
Elevated troponin, suspected nonischemic myocardial injury
CAD s/p remote CABG at [facility] and PCI at [place]
History of CVA 2010
NSVT
Paroxysmal atrial fibrillation/flutter
PAD, right femoral endarterectomy with saphenous vein angioplasty and right femoral to PT bypass August 04, 2023, Dr. Riley
Poor medical compliance
Osteomyelitis toe
COPD
HTN
HLD
DM2
Ongoing tobacco use
Hx bedbugs 06/17 admission
Recent cardiac testing:
- Echo 06/12/2024: EF 50%, basal inferior wall hypokinetic on parasternal short axis views, RV mildly dilated, mildly dilated RA, no significant valvular disease noted
- Echocardiogram July 28, 2023 finds normal LV size and function with LVEF in the low normal range estimated at 51% with basal to mid inferior wall severe hypokinesis. No significant valvular disease.
- Dobutamine nuclear stress test July 29, 2023 finds large inferior and basal inferior septal infarct without stephanie-infarct ischemia. Baseline LVEF 43%
Plan:
-3rd admission in 3 months for acute CHF. suspected medication and diet noncompliance
-d/w hospitalist. plan for DC. would discharge on higher dose po lasix 60mg BID (was on po lasix 40mg BID)
-continue toprol, lisinopril. consider addition of aldactone. He has been felt to be a poor candidate for SGLT2 inhibitor (noncompliance, peripheral vascular disease)
-CHF education, compliance remains major issue to his care
-wean supp O2 as able. for home O2. also with COPD, treatment per primary service
-trops mildly elevated and flat. no CP. suspected nonischemic myocardial injury
-continue amiodarone, eliquis. also on plavix given history of RLE bypass 07/2023. no asa
-CM following. plan for home with VN
-OP cardiac follow up arranged
PREADMIT DATA:
Ross Nelson is a 73 year old male with chronic HFrEF, CAD s/p CABG and PCI, PAD s/p R femoral endarterectomy with saphenous vein angioplasty and R femoral to PT bypass 08/16, COPD, DM, HTN, hyperlipidemia, remote CVA who presented to [facility] emergency department on 08/18/2024 with abdominal and LE edema. Had 2 prior admissions for CHF in last 2 months, one in 05/2024, and one in 06/2024. He has not been seen in office since last hospitalization. Compliance felt to be significant
issue. Noted to be hypoxic in ER today, improved on 3L NC. Not on home O2. ProBNP 72467. CXR with evidence of pulm edema and small to mod R effusion. Cardiology consulted for evaluation.
Progress Note - Executive Meeting Manager
Subjective
Date of Service: August 23, 2024
for DC today
Objective
Labs:
08/21/24 07:21
08/23/24 07:02
Labs
Hgb 12.8 g/dL (13.0-18.0) L 08/21/24 07:21
Hct 44.6 % (39.0-52.0) 08/21/24 07:21
Plt Count 383 10^3/uL (130-400) 08/21/24 07:21
PT 15.4 Sec (11.4-14.6) H 08/18/24 13:30
INR 1.24 08/18/24 13:30
APTT 29.0 Sec (23.4-35.0) 08/18/24 13:30
Sodium 141 mmol/L (135-145) 08/23/24 07:02
Potassium 4.3 mmol/L (3.5-5.1) 08/23/24 07:02
BUN 29 mg/dl (9-20) H 08/23/24 07:02
Creatinine 0.8 mg/dL (0.7-1.3) 08/23/24 07:02
Glucose 109 mg/dl (70-99) H 08/23/24 07:02
Vital Signs and I&O:
Vital Signs
Temp Pulse Resp BP Pulse Ox
97.9 F 70 20 133/60 93
08/23/24 11:50 08/23/24 11:50 08/23/24 11:50 08/23/24 11:50 08/23/24 08:50
Vital Signs
Temp Pulse Resp BP Pulse Ox
97.9 F 70 20 133/60 93
08/23/24 11:50 08/23/24 11:50 08/23/24 11:50 08/23/24 11:50 08/23/24 08:50
Intake & Output
08/21/24 08/22/24 08/23/24/31/24
07:59 07:59 07:59 07:59
Intake Total 1380 / 1380 1080 / 1080 720 / 720
Output Total 1874 / 187 600 / 600
Balance -495 / -495 480 / 480 720 / 720
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
[2024-08-23 15:00] VITALS: BP 139/67
--- NOTE | 2024-08-24 06:33 | W.DCSUMMARY ---
Discharge Summary
Discharge Data
Date of Admission: 08/18/24
Date of Discharge: 08/23/24
-
Pending Results: No
Hospital Course
73 years old male With history of recurrent CHF and respiratory failure admitted to the hospital with shortness of breath and worsening peripheral edema. Patient has history of heart failure and advanced COPD. He was not using home oxygen.
Patient did not have fever, he had mild leukocytosis with sodium bicarbonate level 37, proBNP 37076, troponin 0.054. Patient needed 4 to 6 L of oxygen on arrival to stabilize his oxygenation. Patient has history of advanced COPD but was not
following with fire pilot. He was using Trelegy with albuterol as needed. Patient was diagnosed with acute on chronic hypoxic respiratory failure with acute on chronic heart failure with a preserved ejection fraction. Patient received
treatment for heart failure with intravenous diuretics. Patient was given nicotine patch. Smoking cessation counseling was provided and patient verbalized understanding. He had mild left lower leg cellulitis was given antibiotic. Patient was
followed by sorting grapple operator and pulmonary doctors. He started to improve with no respiratory distress. He ambulated independently. He complained of restless leg syndrome was given low-dose of ropinirole. His ferritin was around 40 and was started
on oral iron. Patient was advised to follow-up with his a primary care doctor for further treatment of restless leg syndrome. Patient was given instructions to follow-up with sorting grapple operator and fire pilot in the outpatient setting. Home oxygen
set up was ordered for the patient and he was counseled strongly to use oxygen at home, avoid smoking and to take his medications as instructed. manager language was involved in discharge planning in order to provide a safe discharge planning. Case
supply chain project manager arrange for follow-up by [facility]. Patient remained hemodynamically stable. He was discharged with home oxygen in a stable condition.
Discharge Plan
-
Patient Disposition: Home with Home Care
Discharge Diagnosis/Procedures: Acute decompensated heart failure/acute on chronic HFpEF with interstitial/alveolar edema, small�moderate right-sided pleural effusion
Severe COPD history
Acute respiratory failure with hypoxia on supplemental oxygen due to above
Diet: As tolerated
Specialty Instructions: Weigh Daily- Call MD for wt gain/loss 3 lbs overnight/5 lbs in 1 week
Activity Restrictions/Additional Instructions:
Wound Care Instructions
Can shower wash with soap and water
moisturize Legs and feet daily- Aquaphor or equivalent
L leg: clean with soap and water, smear of honey gel, adaptic and dry dressing change q other day.
edi wrap(until can obtain compression stockings) knee high during the day remove at bedtime.
Compression stockings 20-30mmhg ([facility]) can get appropriate size. *Activa brand recommended.
Leg elevation when sitting
control blood sugars, weight and smoking cessation
Follow up at wound care center if wound not healing, call for an appointment.
Instructions: *[facility] Heart Failure Instructions
Referrals:
Paige Mendes PA-C [Specified Professional Personl] - 08/29/24 1:20 pm (You have a cardiology follow-up appointment at the [place] office, [address]. Please call with questions)
Shirley Bush CRNP [Specified Professional Personl] - in one to two weeks (Appointment for 08/30/2024 at 9:15 AM with Shirley MARTINEZ)
Modesta Turner DO [Family Provider] -
Prescriptions:
New
nicotine 14 mg/24 hr Patch 24 Hour
14 mg transdermal DAILY Qty: 28 0RF
metoprolol succinate 50 mg Tablet Extended Release 24 Hr
50 mg PO BID Qty: 60 0RF
cephalexin 500 mg Capsule
500 mg PO QID Qty: 6 0RF
prednisone 10 mg tablet
40 mg PO DAILY Qty: 20 0RF
Rx Instructions:
40 mg X 2 days then 30 mg X 2 days then 20 mg X 2 days then 10 mg X 2 days.
furosemide [Lasix] 20 mg tablet
60 mg PO BID Qty: 180 0RF
ferrous sulfate 325 mg (65 mg iron) tablet
325 mg PO DAILY Qty: 30 0RF
ropinirole 0.5 mg tablet
0.5 mg PO HS Qty: 30 0RF
Continued
isosorbide mononitrate 60 mg Tablet Extended Release 24 Hr
60 mg PO DAILY
clopidogrel [Plavix] 75 mg Tablet
75 mg PO DAILY
Trelegy Ellipta 100-62.5-25 mcg Blister With Device
1 inh INHALATION R QPM
atorvastatin 80 mg Tablet
80 mg PO HS
albuterol sulfate 90 mcg/actuation HFA aerosol inhaler
2 puff INHALATION R QIDPRN PRN (Reason: sob)
folic acid 1 mg tablet
1 mg PO DAILY
lisinopril 40 mg tablet
40 mg PO DAILY
Eliquis 5 mg Tablet
5 mg PO BID 30 Days Qty: 60 0RF
amiodarone 200 mg Tablet
200 mg PO DAILY 30 Days Qty: 30 0RF
metformin 500 mg Tablet
500 mg PO DAILY
thiamine HCl (vitamin B1) 100 mg Tablet
100 mg PO DAILY
Discontinued
furosemide 40 mg Tablet
40 mg PO BID AT 0800,1600 30 Days Qty: 60 0RF
metoprolol tartrate 50 mg tablet
50 mg PO BID 30 Days Qty: 60 0RF
aspirin 81 mg tablet,delayed release (DR/EC)
81 mg PO DAILY 30 Days Qty: 30 0RF
Discharge Orders:
Discharge Patient (As Directed); Ordered 08/23/24
Ordered By: Rosy Rahman
Discharge Date and Time
Discharge Date/Time: 08/23/24 17:05
Print Language: KHMER
== END 2024-08-23 17:05 | disposition home health service (06) | DRG 291 ==
LOC: 4 EAST ACU 16:42
PROVIDERS: Hospitalist; Nurse Practitioner Family; Physician Assistant; ADMITTING PHYSICIAN Internal Medicine; ATTENDING PHYSICIAN Internal Medicine; CONSULT PHYSICIAN Internal Medicine Cardiovascular Disease; CONSULT PHYSICIAN Internal Medicine Critical Care Medicine; EMERGENCY PHYSICIAN Student in an Organized Health Care Education/Training Program; FAMILY PHYSICIAN Family Medicine
DX: I11.0 Hypertensive heart disease with heart failure (principal); I50.33 Acute on chronic diastolic (congestive) heart failure; J96.21 Acute and chronic respiratory failure with hypoxia; J96.22 Acute and chronic respiratory failure with hypercapnia; I48.92 Unspecified atrial flutter; R18.8 Other ascites; L03.116 Cellulitis of left lower limb; J44.1 Chronic obstructive pulmonary disease with (acute) exacerbation; I48.0 Paroxysmal atrial fibrillation; I25.10 Atherosclerotic heart disease of native coronary artery without angina pectoris; G47.33 Obstructive sleep apnea (adult) (pediatric); E11.51 Type 2 diabetes mellitus with diabetic peripheral angiopathy without gangrene; I5A Non-ischemic myocardial injury (non-traumatic); F17.210 Nicotine dependence, cigarettes, uncomplicated; G25.81 Restless legs syndrome; E78.00 Pure hypercholesterolemia, unspecified; Z79.51 Long term (current) use of inhaled steroids; Z95.820 Peripheral vascular angioplasty status with implants and grafts; Z95.1 Presence of aortocoronary bypass graft; Z95.5 Presence of coronary angioplasty implant and graft; Z91.148 Patient's other noncompliance with medication regimen for other reason; Z88.2 Allergy status to sulfonamides; Z86.73 Personal history of transient ischemic attack (TIA), and cerebral infarction without residual deficits; Z82.49 Family history of ischemic heart disease and other diseases of the circulatory system; Z79.899 Other long term (current) drug therapy; Z79.84 Long term (current) use of oral hypoglycemic drugs; Z79.82 Long term (current) use of aspirin; Z79.02 Long term (current) use of antithrombotics/antiplatelets; Z79.01 Long term (current) use of anticoagulants
CPT/HCPCS: 71046; 76705; 80048; 80053; 82728; 82805; 82962; 83036; 83540; 83735; 83880; 84100; 84484; 85025; 85027; 85610; 85730; 93005; 93971; 94640; 97116; 97162; 97166; 99291; 99406

== ENCOUNTER 2024-08-24 09:06 | Emergency (ER) | payer MEDICARE, SELFPAY ==
--- NOTE | 2024-08-24 09:33 | EDRN ---
Ember NUNEZ in room w/ pt
[2024-08-24 09:37] VITALS: BP 140/73
--- NOTE | 2024-08-24 09:39 | ED.GENMED ---
History of Present Illness
General
Chief Complaint: Nose Bleed
Source: patient
Exam Limitations: none
Time Seen by Provider: 08/24/24 09:22
History of Present Illness
History of Present Illness:
73-year-old male presents with complaints of a left-sided nosebleed started shortly after being discharged yesterday. He was here for CHF and COPD. He is chronically on oxygen. He is on Eliquis. He has not been able to get his nose to stop
bleeding since yesterday. He has no other complaints
Past History
Past History
ED Past Medical History: COPD, HTN, Hypercholesterolemia, NIDDM, MD, Other (agre with documented pmhx and add: COPD.) and Other (TIA, diabetes mellitus type 2, hyperlipidemia, COPD, CAD, MD with CABG, hypertension, sleep apnea, hepatitis C)
ED Past Surgical History: Appendectomy, Cardiac (stents. Has had several stents. Last heart surgery 1997.), Orthopedic and Tonsilectomy
Social History
Tobacco: Smoker
Alcohol: Occasional
Drug: Marijuana
Personal:
Living: with family
Employment: Disabled
Family History
Family History: CAD
Phy Exam
Physical Exam
Physical Exam:
General: Well-appearing male no acute respiratory distress
HEENT: Normal cephalic atraumatic left nasal cavity blood. Right nasal cavity patent. Posterior pharynx patent
Extremities: Edema bilateral lower extremities.
Skin: Warm, no rash or lesions
Course
Orders/Labs/Results
Orders:
Orders
08/24/24 11:38
Case Management Consult ONCE
Case Management Consult: Discharge Planning
Vital Signs
Initial and Last Documented VS:
Initial Vital Signs
Pulse Resp Pulse Ox
82 20 93
08/24/24 09:24 08/24/24 09:24 08/24/24 09:24
Last Documented Vital Signs
Pulse Resp BP Pulse Ox
66 33 147/84 96
08/24/24 13:00 08/24/24 13:00 08/24/24 13:00 08/24/24 13:00
MDM/Problems Addressed
Differential Diagnosis Includes:
Appears to be the source of left nasal bleeding is an anterior epistaxis. He is anticoagulated which complicates today's care. I reviewed prior hospital records including his most recent discharge summary. Patient is chronically on oxygen which
is contributing towards nosebleed. Piece of cotton was applied into the left nasal cavity soaked with lidocaine and epinephrine. Will attempt cautery
*Critical Care Note
Total Time (30-74mins, 75-104mins- exclusive of procedures): Not Applicable
Update Note
Update Note:
Hemostasis of the left side of nose was obtained with silver nitrate cautery after the nose was packed with cotton and lidocaine and epinephrine. This cotton was removed the nose was cauterized and he was observed for several hours after this.
There was no further bleeding. Patient concerned about his wellbeing at home. Got case management involved and they be reviewed his care plan at home he is visiting nurses. He was just discharged from the hospital yesterday. He is stable for
discharge again at this time.
ED Attending Note
-
Portions of this chart may have been created with voice recognition software.� Occasional wrong word or��sound alike� substitutions may have occurred due to the inherent limitations of voice recognition software.
Discharge Plan
Departure
Patient Disposition: Home (Routine Discharge)
Date of Disposition: 08/24/24
Time of Disposition: 13:10
Patient with high blood pressure during this ER visit?: No
Discharge Problem:
Acute anterior epistaxis
Prescriptions:
No Action
isosorbide mononitrate 60 mg Tablet Extended Release 24 Hr
60 mg PO DAILY
clopidogrel [Plavix] 75 mg Tablet
75 mg PO DAILY
Trelegy Ellipta 100-62.5-25 mcg Blister With Device
1 inh INHALATION R QPM
atorvastatin 80 mg Tablet
80 mg PO HS
albuterol sulfate 90 mcg/actuation HFA aerosol inhaler
2 puff INHALATION R QIDPRN PRN (Reason: sob)
folic acid 1 mg tablet
1 mg PO DAILY
lisinopril 40 mg tablet
40 mg PO DAILY
Eliquis 5 mg Tablet
5 mg PO BID 30 Days Qty: 60 0RF
amiodarone 200 mg Tablet
200 mg PO DAILY 30 Days Qty: 30 0RF
metformin 500 mg Tablet
500 mg PO DAILY
thiamine HCl (vitamin B1) 100 mg Tablet
100 mg PO DAILY
nicotine 14 mg/24 hr Patch 24 Hour
14 mg transdermal DAILY Qty: 28 0RF
metoprolol succinate 50 mg Tablet Extended Release 24 Hr
50 mg PO BID Qty: 60 0RF
cephalexin 500 mg Capsule
500 mg PO QID Qty: 6 0RF
prednisone 10 mg tablet
40 mg PO DAILY Qty: 20 0RF
Rx Instructions:
40 mg X 2 days then 30 mg X 2 days then 20 mg X 2 days then 10 mg X 2 days.
furosemide [Lasix] 20 mg tablet
60 mg PO BID Qty: 180 0RF
ferrous sulfate 325 mg (65 mg iron) tablet
325 mg PO DAILY Qty: 30 0RF
ropinirole 0.5 mg tablet
0.5 mg PO HS Qty: 30 0RF
Referrals:
Magno Ochoa MD [Family Provider] -
Activity Restrictions/Additional Instructions:
Keep nasal mucosa moist with Vaseline. Continue to use oxygen. Return here for worsening symptoms otherwise
Interventions
Interventions:
*Risk Screen - Suicide Last Done: 08/24/24 09:16
*General Assessment Last Done: 08/24/24 09:38
*Neglect/Abuse Screening Last Done: 08/24/24 09:16
ED- Fall Risk Assessment Last Done: 08/24/24 09:39
*ED COVID-19 Vaccine History Last Done: 08/24/24 09:38
ED-EENT Assessment Last Done: 08/24/24 09:40
Discharge Date and Time
Print Language: GEORGIAN
[2024-08-24 10:00] VITALS: BP 139/78
--- NOTE | 2024-08-24 10:03 | EDRN ---
Ember NUNEZ in room w/ pt. Pt has no bleeding from packed L nose.
--- NOTE | 2024-08-24 10:20 | EDRN ---
Pt has been complaining about his L lower leg being in pain. Pt has a loose edi wrap around ankle. Pt does not seem aware of wound care instructions and says he has difficulty ambulating due to pain in his L lower leg. Pt was sleeping when I entered
his room. Pt had POX 95% w/ NC in place at 4lpm while sleeping w/ head on his chest. Pt on awakening and lifting his head had POX 98%.
[2024-08-24 11:00] VITALS: BP 171/80
--- NOTE | 2024-08-24 11:55 | EDRN ---
This RN spoke to Food Processor in ED about pt and home wound care. Case Management will check w/ pt's manager in home to see what they will be doing for pt. Pt states he has not picked up his prescriptions as he was going to this am and the episode
of epistaxis. pt lives w/ his nephew and states is comfortable w/his oxygen.
[2024-08-24 12:15] VITALS: BP 153/79
--- NOTE | 2024-08-24 12:30 | EDRN ---
Portable CXR at stretcher side at this time.
--- NOTE | 2024-08-24 12:43 | CM ---
CM reviewed chart. CM consult placed because patient has not been able to apple picking supervisor his daily meds and treatments for his wound. Daughter was called and stated she will be picking up meds. [facility] hospital liaison made aware. Bedside RN and attending
provider also made aware.
--- NOTE | 2024-08-24 12:58 | EDRN ---
Daughter will be picking up patient's meds from pharmacy. VN will visit and perform wound care on Wednesday. Pt is set up at home for his oxygen. Per CM.
[2024-08-24 13:00] VITALS: BP 147/84
--- NOTE | 2024-08-24 13:26 | EDRN ---
L lower leg wound dressing checked. Dressing is CDI w/ no drainage noted. Pt has a heel foam in place at this time. Mayur wrap was taken off and reapplied. Pt called his nephew who will pick him up and will get meds on way home from ED. Pt has VN
coming on Wed for wound care.
--- NOTE | 2024-08-24 13:41 | EDRN ---
Pt in w/c w/ oxygen to ED entrance at this time to await his nephew. Pt was also administered vasoline.
== END 2024-08-24 13:44 | disposition home or self-care (01) ==
LOC: EMR 09:06
PROVIDERS: EMERGENCY PHYSICIAN Emergency Medicine; FAMILY PHYSICIAN Family Medicine
DX: R04.0 Epistaxis (principal); I11.0 Hypertensive heart disease with heart failure; I50.9 Heart failure, unspecified; J44.9 Chronic obstructive pulmonary disease, unspecified; Z79.01 Long term (current) use of anticoagulants; F17.200 Nicotine dependence, unspecified, uncomplicated
CPT/HCPCS: 99283; 30901

== ENCOUNTER → 2024-09-26 12:55 | Outpatient (REF) | payer MEDICARE, SELFPAY | LOC: WOUND 12:55 | PROVIDERS: ATTENDING PHYSICIAN Surgery; FAMILY PHYSICIAN Family Medicine | DX: I70.243 Atherosclerosis of native arteries of left leg with ulceration of ankle (principal); L97.322 Non-pressure chronic ulcer of left ankle with fat layer exposed; I73.9 Peripheral vascular disease, unspecified; J44.9 Chronic obstructive pulmonary disease, unspecified; E11.9 Type 2 diabetes mellitus without complications; I25.10 Atherosclerotic heart disease of native coronary artery without angina pectoris; F17.210 Nicotine dependence, cigarettes, uncomplicated | CPT/HCPCS: 11042; 99204 ==

== ENCOUNTER → 2024-10-27 09:08 | Outpatient (REF) | payer MEDICARE, SELFPAY | LOC: RAD 09:08 | PROVIDERS: ATTENDING PHYSICIAN Surgery Vascular Surgery; FAMILY PHYSICIAN Family Medicine | DX: I73.9 Peripheral vascular disease, unspecified (principal) | CPT/HCPCS: 93922; 93925 ==

== ENCOUNTER → 2024-11-02 11:31 | Outpatient (REF) | payer MEDICARE, SELFPAY | LOC: WOUND 11:31 | PROVIDERS: ATTENDING PHYSICIAN Surgery; FAMILY PHYSICIAN Family Medicine | DX: I70.243 Atherosclerosis of native arteries of left leg with ulceration of ankle (principal); L97.322 Non-pressure chronic ulcer of left ankle with fat layer exposed; L97.822 Non-pressure chronic ulcer of other part of left lower leg with fat layer exposed; J44.9 Chronic obstructive pulmonary disease, unspecified; E11.9 Type 2 diabetes mellitus without complications; I25.10 Atherosclerotic heart disease of native coronary artery without angina pectoris | CPT/HCPCS: 99213 ==

== ENCOUNTER → 2024-11-10 13:49 | Outpatient (REF) | payer MEDICARE, SELFPAY | LOC: WOUND 13:49 | PROVIDERS: ATTENDING PHYSICIAN Surgery; FAMILY PHYSICIAN Family Medicine | DX: I70.243 Atherosclerosis of native arteries of left leg with ulceration of ankle (principal); L97.322 Non-pressure chronic ulcer of left ankle with fat layer exposed; L97.822 Non-pressure chronic ulcer of other part of left lower leg with fat layer exposed; I73.9 Peripheral vascular disease, unspecified; F17.210 Nicotine dependence, cigarettes, uncomplicated; J44.9 Chronic obstructive pulmonary disease, unspecified; E11.9 Type 2 diabetes mellitus without complications; I25.10 Atherosclerotic heart disease of native coronary artery without angina pectoris | CPT/HCPCS: 99213 ==

== ENCOUNTER 2024-11-21 03:18 | Inpatient (IN) | payer MEDICARE, SELFPAY ==
[2024-11-21] VITALS (34 sets, daily range): BP systolic 66–116; BP diastolic 41–68; BMI 25.3; BMI 25.9
[2024-11-21 01:40] LABS: Glucose - Point of Care 188 mg/dl (70-99)
[2024-11-21 01:48] LABS: % Basophils 0.2 % (0-2); % Eosinophils 0.4 % (0-6); % Immature Granulocytes 0.4 % (0-0.5); % Lymphocytes 7.1 % (20.5-51.1); % Monocytes 6.3 % (1.7-9.3); % Neutrophils 85.6 % (42.2-75.2); Absolute Lymphocytes 0.6 10^3/uL (1.2-3.4); Absolute Monocytes 0.5 10^3/uL (0.1-0.6); Absolute Neutrophils 6.9 10^3/uL (1.4-6.5); Hematocrit 25.6 % (39.0-52.0); Mean Corpuscular Hgb 28.4 pg (27.0-31.0); Mean Corpuscular Volume 105.3 fL (80.0-94.0); Mean Platelet Volume 9.9 fL (7.4-10.4); Nucleated Red Blood Cells % 1.7 % (-); Platelet Count 408 10^3/uL (130-400); Red Blood Cell Count 2.43 10^6/uL (4.70-6.10); White Blood Cell Count 8.1 10^3/uL (4.8-10.8)
[2024-11-21 01:49] LABS: Hemoglobin 7.1 g/dL (13.0-18.0)
[2024-11-21 01:53] LABS: APTT 25.1 Sec (23.4-35.0)
[2024-11-21 01:59] LABS: ALT (SGPT) 20 U/L (0-50); AST (SGOT) 33 U/L (17-59); Albumin 3.5 g/dl (3.5-5.0); Alkaline Phosphatase 75 U/L (38-126); Blood Urea Nitrogen 28 mg/dl (9-20); Calcium 9.1 mg/dl (8.4-10.2); Chloride 80 mmol/L (98-107); Estimated Creatinine Clearance 86 ml/min; Glucose 165 mg/dl (70-99); Potassium 3.8 mmol/L (3.5-5.1); Sodium 136 mmol/L (135-145); Total Bilirubin 0.7 mg/dl (0.2-1.3); Total Protein 5.9 g/dl (6.3-8.2); eGFR > 60.00
--- NOTE | 2024-11-21 02:10 | EDRN ---
Patient came in, incontinent to stool, cleaned and report to slab polisher and transported upstairs.
[2024-11-21 02:14] LABS: Troponin I 0.073 ng/ml
--- NOTE | 2024-11-21 02:15 | ED.GENMED ---
History of Present Illness
General
Chief Complaint: Chest Pain
Source: patient and ambulance crew
Exam Limitations: clinical condition
Time Seen by Provider: 11/21/24 01:29
Nursing documentation reviewed up to this point in time: agreed with
History of Present Illness
History of Present Illness:
Late entry seen immediately upon presentation 74-year-old male CAD bypass surgery diabetes apparently passed out family did painful stimuli woke him up EMS was called EKG showed high lateral ST segment elevation, prehospital STEMI alert called, will
evaluate the patient. Chronically ill requiring more oxygen did have a bowel movement in the bed no chest pain no abdominal pain
Past History
Past History
ED Past Medical History: COPD, HTN, Hypercholesterolemia, NIDDM, LA, Other (agre with documented pmhx and add: COPD.) and Other (TIA, diabetes mellitus type 2, hyperlipidemia, COPD, CAD, LA with CABG, hypertension, sleep apnea, hepatitis C)
ED Past Surgical History: Appendectomy, Cardiac (stents. Has had several stents. Last heart surgery 1997.), Orthopedic and Tonsilectomy
Social History
Tobacco: Smoker
Alcohol: Occasional
Drug: Marijuana
Personal:
Living: with family
Employment: Disabled
Family History
Family History: CAD
Review of Systems
Review of Systems
All Other Systems: Not applicable
Constitutional: Reports fatigue
Respiratory: Reports trouble breathing; Denies cough
Phy Exam
Physical Exam
Physical Exam:
Physical Exam
General: 74 male chronically
Neck: No JVD
Heart: s1/s2 regular rate and rhythm, no murmur. equal radial pulses.
Lungs: no acute respiratory distress. Crackles at the right base
Neuro: alert and oriented. no focal neurological deficits
Skin: no rash
Psychiatric: well kept. interactive and cooperative
Extremities: no edema.
Scores
Heart Score for Chest Pain Patients
STEMI patient?: Yes
Course
Orders/Labs/Results
Orders:
Orders
11/21/24 01:28
Electrocardiogram (*1) Urgent
Reason for Study: Chest Pain
Cardiac Monitoring- Treatment ONCE
EKG- Treatment ONCE
11/21/24 01:30
CR Chest Portable - 1 View Urgent
Comment:
Reason For Exam: sob
Reason Study Needs to be Portable: Unable to Transport
11/21/24 01:32
CMP [Comprehensive Metabolic Panel] Urgent
Complete Blood Count/With Diff Urgent
Ferritin Urgent
Comment: ADD
Folate Urgent
Comment: ADD
Iron Urgent
PTT Urgent
Total Iron Binding Urgent
Troponin I Urgent
Vitamin B12 Urgent
Comment: ADD
11/21/24 01:33
Aspirin 325 mg PO NOW STA
Heparin 4,000 units IV NOW STA
Ticagrelor [Brilinta] 180 mg PO ONCE ONE
11/21/24 01:52
Heparin 10,000 units .ROUTE .STK-MED ONE
Heparin 1000 Units/500 ml [Heparin] 1,000 units in 500 ml .ROUTE .STK-MED
Heparin Sodium,Porcine/Ns/Pf [Heparin 2000 Units/1000 ml] 2,000 unit in 1,000 ml .ROUTE .STK-MED
Lidocaine HCl/Pf [Xylocaine-Mpf 1% Vial] 100 mg .ROUTE .STK-MED ONE
Nitroglycerin [Tridil] 1,500 mcg .ROUTE .STK-MED ONE
Verapamil Injectable [Isoptin/Verapamil Injection] 5 mg .ROUTE .STK-MED ONE
11/21/24 01:53
Midazolam HCl [Versed] 2 mg .ROUTE .STK-MED ONE
11/21/24 01:54
Fentanyl Citrate/Pf [Sublimaze] 100 mcg .ROUTE .STK-MED ONE
11/21/24 02:17
Complete Blood Count/No Diff Urgent
Comment: MEDICAL LIAISON
11/21/24 02:25
ABG [Arterial Blood Gas] Stat
%Oxygen/Room Air: 4
11/21/24 02:32
Blood Bank Products [* Blood Bank Products] Routine
Blood Bank Products: *Packed RBC Leuko(PRBC's)
Quantity: 2
Transfuse Today: Yes
Reason: Anemia
11/21/24 02:48
Type+Screen Urgent
11/21/24 03:11
Code Status As Directed
Resuscitation Status: Full Code
11/21/24 03:15
Admit Patient As Directed
Co-Sign Provider:
Level of Care: Inpatient admission
Assign to:: IVU
Physician / Group: hospitalist
Diagnosis: syncope
Reason for Hospitalization: syncope
Expected length of stay greater than two midnights?: Yes
ELOS- Estimated Length of Stay in days: 3
I certify the patient meets the requirements for IP care: Yes
0.9% Sodium Chloride 1000 ml [Nss] 1,000 ml IV PER PROTOCOL
Infusion rate in mL/kg/hr:: 1.5
Infusion rate in mL/hr:: 120
Duration of infusion (hours):: 3
Activity As Directed
Activity Level: Out of Bed- Ad Lena
Activity Frequency: Ad Lena
Local Tanker Truck Driver Procedure As Directed
Cardiac Cath Procedure: cardiac catheterization
Notify MD As Directed
Notify physician if: immediately for chest pain or bleeding from access site(s)
Radial Artery Hemostasis Method As Directed
Instructions:: 3 mL out at 1 hour post placement of band
3 mL out at 1 1/2 hours post placement of band
3 mL out at 2 hours post placement of band
Off at 2 1/2 hours post placement of band
If any oozing or hemotoma occurs:: re-inflate band and call provider
Site Checks As Directed
Check access site for bleeding/hematoma: Yes
Comment: on arrival, Q15min x4, Q30min x2, Q1 hr x2, Q2 hr x2, Q4 hr or per
protocol
Vascular Checks As Directed
Location: distal to access site - pulse check
Frequency: Other
Comment: on arrival, Q15min x4, Q30min x2, Q1 hr x2, Q2 hr x2, Q4 hr or per protocol
Vital Signs As Directed
Frequency: Other
Additional Instructions:: on arrival, Q15min x4, Q30min x2, Q1 hr x2, Q2 hr x2, then Q4 hr or per unit
protocol
PRN Pain Medication Management As Directed
May give lesser potent ordered pain med per pt: Yes
preference::
Protocol:: Medication orders for pain may be administered in a
manner that supports deferring to patient preference
when the pt is:
- Requesting an ordered lesser potent pain medication.
Least to most potent pain medications are defined
as: acetaminophen < NSAID < tramadol < opioids
(morphine, oxycodone, hydromorphone).
- Requesting a lesser dose of the same medication IF
ORDERED.
- Requesting a less intrusive route of administration
if both routes are prescribed by the provider (PO <
IV).
Abnormal Lab Results
11/21/24 11/21/24 11/21/24
01:32 01:38 02:17
RBC 2.43 L 10^6/uL 2.17 L 10^6/uL
(4.70-6.10) (4.70-6.10)
Hgb 7.1 L g/dL 6.1 L* g/dL
(13.0-18.0) (13.0-18.0)
Hct 25.6 L % 22.2 L %
(39.0-52.0) (39.0-52.0)
MCV 105.3 H fL 102.3 H fL
(80.0-94.0) (80.0-94.0)
MCHC 27.0 L g/dL 27.5 L g/dL
(33.0-37.0) (33.0-37.0)
RDW 16.0 H % 16.1 H %
(11.5-14.5) (11.5-14.5)
Plt Count 408 H 10^3/uL
(130-400)
Absolute Neuts (auto) 6.9 H 10^3/uL
(1.4-6.5)
Absolute Lymphs (auto) 0.6 L 10^3/uL
(1.2-3.4)
Neutrophils % 85.6 H %
(42.2-75.2)
Lymphocytes % 7.1 L %
(20.5-51.1)
pCO2
pO2
HCO3
ABG O2 Sat (Measured)
Chloride 80 L mmol/L
(98-107)
Carbon Dioxide 39 H mmol/L
(22-30)
BUN 28 H mg/dl
(9-20)
Glucose 165 H mg/dl
(70-99)
% Saturation 12 L %
(20-50)
Troponin I 0.073 H* ng/ml
Total Protein 5.9 L g/dl
(6.3-8.2)
Folate > 20.0 H ng/ml
(2.76-20)
POC Glucose 188 H mg/dl
(70-99)
Crossmatch IS Only
11/21/24 11/21/24
02:25 02:48
RBC
Hgb
Hct
MCV
MCHC
RDW
Plt Count
Absolute Neuts (auto)
Absolute Lymphs (auto)
Neutrophils %
Lymphocytes %
pCO2 86 H* mmHg
(35-48)
pO2 142 H mmHg
(83-108)
HCO3 49.7 H* mmol/L
(21-28)
ABG O2 Sat (Measured) 100.0 H %
(94-98)
Chloride
Carbon Dioxide
BUN
Glucose
% Saturation
Troponin I
Total Protein
Folate
POC Glucose
Crossmatch IS Only See Detail
11/21/24 02:17
11/21/24 01:32
Vital Signs
Initial and Last Documented VS:
Initial Vital Signs
Temp Pulse Resp BP Pulse Ox
97.7 F 69 30 109/55 96
11/21/24 01:30 11/21/24 01:30 11/21/24 01:30 11/21/24 01:30 11/21/24 01:30
Last Documented Vital Signs
Temp Pulse Resp BP Pulse Ox
97.9 F 69 16 98/65 92
11/28/24 03:50 11/28/24 07:25 11/28/24 07:25 11/28/24 03:44 11/28/24 07:25
MDM/Problems Addressed
Differential Diagnosis Includes:
STEMI arrhythmia toxic metabolic neurologic
MDM/Problems Addressed:
Syncope ST segment elevation
*Radiology
Radiology exam reviewed: preliminary read by ED provider
*Pulse Oximetry
Patient hypoxic: yes
*EKG
Interpreted by ED Provider?: Yes
Interpretation: normal
Comparison EKG: no comparison EKG present
Heart Rate: 78
Rate: normal
Ischemia: ST elevation
*Mopper Interpretation
Rate: normal
Interpretation: normal
Heart Rate: 78
Rhythm: sinus
*Critical Care Note
Total Time (30-74mins, 75-104mins- exclusive of procedures): 32
Update Note
Update Note:
Update EKG concerning for ST segment elevation history less so reviewed with cardiology will go for cath
Labs returned is anemic will send type and screen
ED Attending Note
-
Portions of this chart may have been created with voice recognition software.� Occasional wrong word or��sound alike� substitutions may have occurred due to the inherent limitations of voice recognition software.
Discharge Plan
Departure
Patient Disposition: Admit
Admit to: laboratory engineer
Presentation/result/management discussed w/ accepting MD/DO: brandon
Patient with high blood pressure during this ER visit?: No
Condition: Serious
Covid-19: Not Applicable
Discharge Problem:
Diabetes mellitus, type II, Peripheral artery disease, History of COPD, Peripheral vascular disease, Acute on chronic heart failure with mildly reduced ejection fraction (HFmrEF, 41-49%), Non-ischemic myocardial injury (non-traumatic), Hypoxia, CAD
(coronary artery disease), ST elevation (STEMI) myocardial infarction
Interventions
Interventions:
*Risk Screen - Suicide Last Done: 11/21/24 01:30
*General Assessment Last Done: 11/21/24 01:30
*Neglect/Abuse Screening Last Done: 11/21/24 01:30
*ED COVID-19 Vaccine History Last Done: 11/21/24 01:30
*Nursing Disposition Last Done: 11/21/24 02:10
Discharge Date and Time
Discharge Date/Time: 11/21/24 02:11
[2024-11-21 02:25] LABS: Carbon Dioxide 39 mmol/L (22-30)
[2024-11-21 02:39] LABS: B.E. 22.1 mmol/L; PO2 142 mmHg (83-108); pH 7.37 (7.35-7.45)
[2024-11-21 02:42] LABS: O2 Therapy 4L NC
[2024-11-21 02:43] LABS: HCO3 49.7 mmol/L (21-28); PCO2 86 mmHg (35-48)
[2024-11-21 02:48] LABS: Hematocrit 22.2 % (39.0-52.0); Hemoglobin 6.1 g/dL (13.0-18.0); Mean Corp Hgb Conc. 27.5 g/dL (33.0-37.0); Mean Corpuscular Hgb 28.1 pg (27.0-31.0); Mean Corpuscular Volume 102.3 fL (80.0-94.0); Mean Platelet Volume 9.7 fL (7.4-10.4); Platelet Count 360 10^3/uL (130-400); Red Blood Cell Count 2.17 10^6/uL (4.70-6.10); Red Cell Dist. Width 16.1 % (11.5-14.5); White Blood Cell Count 8.4 10^3/uL (4.8-10.8)
--- NOTE | 2024-11-21 03:16 | CON.CAR ---
Consultation
Consultation Request
Date/Time Consultation Requested: 130
Date/Time Consultation Performed: 130
Requesting Provider: Dr. Cecil Narayanan
Performing Provider: Dr. Amos Campbell
Reason for Consultation: syncope, concern for STEMI
Medical History
-
Chief Complaint: syncope
History of Present Illness:
Mr. Nelson is a 73-year-old man with past medical history significant for CAD status post distant CABG, diastolic heart failure, NSVT, atrial tachycardia, COPD, alcohol abuse, peripheral vascular disease, prior CVA, hypertension, active smoking,
diabetes, and hyperlipidemia, who was brought in by EMS emergently after being found down at home with initial EKG concerning for lateral STEMI.
He lives at home with a family member and typically watches TV late at night at the kitchen table. At around 1 AM he was found slumped over at the kitchen table nonresponsive by family and required aggressive stimulation in order to wake up. EMS
was called and initial EKG demonstrated a lateral pattern of ST elevation new from prior with reciprocal changes. The patient was at times hypotensive and nonresponsive en route to the hospital. Upon reaching he was found to be incontinent of
stool. He was awake alert and able to answer questions appropriately. He was not complaining of chest pain, but noted some mild shortness of breath. EKG changes had partially resolved to baseline with resolution of initial ST elevations. Chest
x-ray demonstrated a new right pleural effusion. Given history of syncope, prior history of NSVT and known coronary disease, and initial EKG with STEMI pattern, the Station Superintendent was activated for emergent angiography. This demonstrated a patent SHEEHAN
to LAD nonocclusive disease in his circumflex and RCA territories and no evidence of additional conduits on aortogram. He was found to have new anemia with a hemoglobin of 6 and 2 units of blood were ordered. LVEDP was mildly elevated at 19.
During the procedure he remained hemodynamically stable and comfortable throughout.
Per history obtained from family after cardiac catheterization, his family notes a several month history of decline with progressive confusion, worsening respiratory status, nonhealing wounds. He has been seen by pulmonary who has augmented his
COPD regimen. They believe he had lab work done 2 months ago and there was no mention of anemia at that time. The patient and family deny any history of bleeding. He is on Eliquis and Plavix, although he is unable to recall what medications he
takes (he has a home health aide that assists with medication administration).
Past Medical History
Past Medical History: CAD, CHF, COPD, CVA, HTN, Hypercholesterolemia and NIDDM
Social History
Tobacco: Smoker
Alcohol: Chronic Alcoholic
Personal: Single
Living: With Family
Allergies / Home Medications
Allergy/AdvReac Type Severity Reaction Status Date / Time
Sulfa (Sulfonamide Allergy hives,itchi Verified 11/21/24 01:55
Antibiotics) ng
�Medication �Instructions �Recorded �Confirmed �Type
isosorbide mononitrate 60 mg 60 mg PO DAILY Heart 02/26/11 08/18/24 History
tablet,extended release 24 hr Disease/Condition
clopidogrel 75 mg tablet (Plavix) 75 mg PO DAILY Blood Clot 07/25/23 08/18/24 History
Prevention/Tx
fluticasone fur. 100 mcg-umeclid 1 inh inhalation R QPM 07/25/23 08/18/24 History
62.5 mcg-vilant 25 mcg Lung/Breathing Issues
inhalat.powder (Trelegy Ellipta)
atorvastatin 80 mg tablet 80 mg PO HS High Cholesterol 07/26/23 08/18/24 History
albuterol sulfate 90 mcg/actuation 2 puff inhalation R QIDPRN PRN sob 07/16/24 08/18/24 History
aerosol inhaler
folic acid 1 mg tablet 1 mg PO DAILY Supplement 07/16/24 08/18/24 History
lisinopril 40 mg tablet 40 mg PO DAILY Blood Pressure 07/16/24 08/18/24 History
amiodarone 200 mg tablet 200 mg PO DAILY Arrhythmia 30 days 07/24/24 08/18/24 Rx
#30 tabs
apixaban 5 mg tablet (Eliquis) 5 mg PO BID Blood clot 07/24/24 08/18/24 Rx
prevention/tx 30 days #60 tabs
metformin 500 mg tablet 500 mg PO DAILY Diabetes 08/18/24 08/18/24 History
thiamine HCl (vitamin B1) 100 mg 100 mg PO DAILY Supplement 08/18/24 08/18/24 History
tablet
cephalexin 500 mg capsule 500 mg PO QID #6 caps 08/23/24 Rx
ferrous sulfate 325 mg (65 mg 325 mg PO DAILY #30 tabs 08/23/24 Rx
iron) tablet
furosemide 20 mg tablet (Lasix) 60 mg (3 x 20 mg) PO BID #180 tabs 08/23/24 Rx
metoprolol succinate 50 mg 50 mg PO BID #60 tabs 08/23/24 Rx
tablet,extended release 24 hr
nicotine 14 mg/24 hr daily 14 mg transdermal DAILY #28 ea 08/23/24 Rx
transdermal patch
prednisone 10 mg tablet 40 mg (4 x 10 mg) PO DAILY #20 tabs 08/23/24 Rx
ropinirole 0.5 mg tablet 0.5 mg PO HS #30 tabs 08/23/24 Rx
Review of Systems
-
History Source: Patient and Family
Respiratory: Trouble Breathing
Physical Exam
Vital Signs
Temp Pulse Resp BP Pulse Ox
36.5 C 69 30 109/55 96
11/21/24 01:30 11/21/24 01:30 11/21/24 01:30 11/21/24 01:30 11/21/24 01:30
Lab Results
11/21/24 02:17
11/21/24 01:32
Troponin I 0.073 ng/ml H* 11/21/24 01:32
Physical Exam
General: No Apparent Distress
Respiratory: Other (diminished on R)
Cardiac: Regular Rhythm
Neuro: Nonfocal/Grossly Intact
Impression / Plan
-
This is a 74-year-old man with multiple medical conditions including coronary artery disease status post distant CABG, who presents with loss of consciousness and lateral ST elevations on initial EKG. Given his history and findings the Station Superintendent was
activated for emergent coronary angiography which did not reveal a culprit to explain his presentation. Relevant findings include a new large right pleural effusion and new severe anemia with hemoglobin of 6 from prior baseline of 12. 2 units of
blood were ordered. The patient will be admitted to the hospitalist service for further workup and management with cardiology following.
Administered 2 units of blood and trend hemoglobin. Further workup to determine cause of anemia.
For now, would hold Eliquis and Plavix while working up cause of anemia.
Resume patient's home diuretic regimen, but hold additional GDMT for now given mild hypotension until hemodynamics allow restart.
TTE in AM.
Will follow.
Data Reviewed
-
EKG: Tracing Personally Visualized and interpreted
Radiology: Image Personally Visualized and interpreted
Labs: Labs Reviewed by me
--- NOTE | 2024-11-21 03:38 | ITS.CL.PN ---
Generation Manager - Procedure Note
Procedure
Procedure Note:
CARDIAC CATHETERIZATION REPORT
Date of Procedure: 11-21-2024
Referring: Dr. Cecil Narayanan
Indication: Syncope, concern for STEMI
PROCEDURE(S)
1. left heart catheterization
2. coronary angiography
3. bypass graft angiography
ACCESS: 6F right radial artery (closure: radial band)
CATHETERS
1. 6F SANDY
2. 6F JL4
3. 6F JR4
4. 6F MPA
5. 6F pigtail
ULTRASOUND GUIDED VASCULAR ACCESS (left radial): Ultrasound was utilized for vascular access. The vessel was visualized under ultrasound and noted to be patent. An image of the vessel was stored permanently in the patient's medical record. Under
direct ultrasound guidance, vascular access was obtained using a modified Seldinger technique and a 6 Thai sheath was placed.
HEMODYNAMIC DATA
LV 88/11 (EDP 19) mmHg
AO 89/39 (mean 60) mmHg
CORONARY ANGIOGRAPHY
Dominance: Right
LM: Large with mild disease
LAD: Large vessel that is proximally occluded within stent just after the takeoff of a large septal with the mid to distal vessel filled by patent SHEEHAN to LAD.
LCx: Large vessel giving rise to small OM1, large OM2, and small OM3. There is diffuse mild to moderate nonobstructive disease including a 50% stenosis in the mid body of the OM2
RCA: Large vessel giving rise to a large caliber RPDA, medium caliber RPL1, and small RPL2. The proximal to distal vessel contains overlapping stents with mild ISR. There is a small region of haziness in the distal vessel as well as in the
bifurcation of the distal RCA and RPDA/RPAV. This like represents eccentric atherosclerotic plaque. There is DIMITRI-3 flow distally.
BYPASS GRAFT ANGIOGRAPHY:
SHEEHAN-LAD: the SHEEHAN is taken as a pedicle and forms an anastomosis with the mid-LAD.
There are clips on the right side of the aorta possible suggestive of an additional bypass graft. Non selective aortogram was performed and did not demonstrate presence of additional patent grafts.
RADIATION: dose 664 mGy; DAP 52 Gy*cm2; fluoroscopy time 9.1 min
CONCLUSIONS
1. Coronary artery disease status post CABG as described with no culprit lesion to explain patient's presentation
2. Mildly elevated LVEDP with no aortic stenosis on hemodynamic pullback
RECOMMENDATIONS
1. expectant management after cardiac catheterization via left radial approach
2. further workup and management of patient's syncopal episode, new pleural effusion, and new severe anemia
3. hold Eliquis and Plavix for now in setting of anemia
4. hold home GDMT given borderline hypotension, continue home diuretic regimen
5. obtain prior cath reports and CABG operative report
Copy to: Barbara Carbajal MD (soap drier tender); Modesta Pretty DO (PCP)
Signed: Addison Campbell MD, PhD
--- NOTE | 2024-11-21 05:39 | PTCARENOTE ---
Addendum entered by Carmenza Fisher RN 11/21/24 06:37:
1URBC given. No adverse reaction noted during or post transfusion.
Original Note:
Pt admitted to room 2248 post cath. Pt AAOx3, NSR on monitor. Left wrist with RV band, weak pulses, denies pain or numbness. Left leg with wounds, unable to found dorsal pedal pulses with Doppler. Rt dorsal pedis pulses positive with Doppler.
Francis at the bedside and made aware. First unit of blood started.
--- NOTE | 2024-11-21 07:15 | HPS.HSE ---
Family Physician
-
Family Physician: NOT KNOW UNKNOWN - PT DOES
Chief Complaint
-
Unresponsive
History of Present Illness
Patient is a 74y M with PMH significant for severe COPD with chronic hypoxemic and hypercapnic respiratory failure, ASCVD and PA-Fib who presents to ED as STEMI alert after being found unresponsive at home.
Patient states that he was watching TV last PM and he fell asleep at the table - as he will occasionally do. He was discovered in the middle of the night by family and was reportedly unresponsive. He required aggressive stimulation to awaken. 911
was called and patient was brought to the ED for further evaluation. He was incontinent of stool at some point. EKG was done which showed changes concerning for lateral STEMI and patient was taken urgently to the [facility].
Cardiac cath revealed non-obstructive coronary disease, patent bypass grafts / stents. No culprit lesion to explain symptoms / confirm STEMI.
Patient had LVEDP of 19.
He was admitted to Medicine service in the IVU post-procedure.
Patient seen and examined in the IVU. He is awake and alert. He complains of 'heaviness' and some difficulty breathing.
His primary complaint at present is dry mouth / thirst.
Patient states that he was feeling well last PM. He denies any recent illness, cough, fevers / chills, etc.
He continues to smoke. He is on home O2 typically between 2-4 lpm.
On review of data / labs, patient does admit to having black stools fairly consistently for the past week or so.
No other evidence of bleeding, hematuria, BRBPR, etc.
Medical History
Past Medical History
Past Medical History: Reports Other
Additional Past Medical History:
ASCVD (CAD, PAD, CVA)
Chronic HFpEF
Hypertension
Paroxysmal Atrial Fibrillation
COPD
Chronic Hypoxemic and Hypercapnic Respiratory Failure
Hepatitis C
MARIJA
DM-II
Past Surgical History: Reports Other
Additional Past Surgical History:
CABG
PTCA with Stent
R Femoral Endarterectomy / Bypass
Social History
Tobacco: Smoker (Current every day smoker. > 50 pack years total use.)
Alcohol: Occasional
Drug: Marijuana (frequently)
Living: With Family
Family History
Family History: Not pertinent
Allergies / Home Medications
Allergies reflects when Allergies were last updated in [facility].
Home Medications with original date entered in [facility]
Allergy/Medication List:
Allergies
Allergy/AdvReac Type Severity Reaction Status Date / Time
Sulfa (Sulfonamide Allergy hives,itchi Verified 11/21/24 01:55
Antibiotics) ng
Home Medications
isosorbide mononitrate 60 mg tablet,extended release 24 hr 60 mg PO DAILY Heart Disease/Condition 02/26/11
clopidogrel 75 mg tablet (Plavix) 75 mg PO DAILY Blood Clot Prevention/Tx 07/25/23
fluticasone fur. 100 mcg-umeclid 62.5 mcg-vilant 25 mcg inhalat.powder (Trelegy Ellipta) 1 inh inhalation R QPM Lung/Breathing Issues 07/25/23
atorvastatin 80 mg tablet 80 mg PO HS High Cholesterol 07/26/23
albuterol sulfate 90 mcg/actuation aerosol inhaler 2 puff inhalation R QIDPRN PRN sob 07/16/24
folic acid 1 mg tablet 1 mg PO DAILY Supplement 07/16/24
lisinopril 40 mg tablet 40 mg PO DAILY Blood Pressure 07/16/24
amiodarone 200 mg tablet 200 mg PO DAILY Arrhythmia 30 days #30 tabs 07/24/24
apixaban 5 mg tablet (Eliquis) 5 mg PO BID Blood clot prevention/tx 30 days #60 tabs 07/24/24
metformin 500 mg tablet 500 mg PO DAILY Diabetes 08/18/24
thiamine HCl (vitamin B1) 100 mg tablet 100 mg PO DAILY Supplement 08/18/24
ferrous sulfate 325 mg (65 mg iron) tablet 325 mg PO DAILY #30 tabs 08/23/24
furosemide 20 mg tablet (Lasix) 60 mg (3 x 20 mg) PO BID #180 tabs 08/23/24
metoprolol succinate 50 mg tablet,extended release 24 hr 50 mg PO BID #60 tabs 08/23/24
ropinirole 0.5 mg tablet 0.5 mg PO HS #30 tabs 08/23/24
Review of Systems
-
History Source: Patient
A 12 point ROS was completed and negative except as noted: Yes
Constitutional: Denies Fever or Chills
Respiratory: Reports Trouble Breathing; Denies Cough
Cardiac: Reports Chest Pain; Denies Diaphoresis or Palpitations
Abdomen/GI: Reports Black Stools; Denies Abdominal Pain, Nausea, Vomiting or Diarrhea
: Denies Dysuria or Frequency
Musculoskeletal: Denies Edema
Neurological: Denies Dizzy or Headache
Psych: Denies Depression or Anxiety
Physical Exam
Vital Signs
Vital Signs
Temp Pulse Resp BP Pulse Ox
97.4 F 68 21 92/57 97
11/21/24 06:21 11/21/24 06:21 11/21/24 06:21 11/21/24 06:21 11/21/24 03:19
Physical Exam
General: Other (74y M in no acute distress.)
HEENT: Moist mucous membranes, PERRLA and Other (Pos JVD /HJR.)
Respiratory: Other (Decreased BS at the R base. Few rales at the L base. No wheeze / rhonchi.)
Cardiac: S1/S2, Regular Rhythm and Murmur (II/ FABRICIO)
GI: Soft, Non Tender, Non Distended and Normal Bowel Sounds
Musculoskeletal: No Clubbing, No Cyanosis and No Edema
Neuro: AO x 3 and Nonfocal/grossly intact
Laboratory Results
-
Laboratory Results
APTT 25.1 Sec (23.4-35.0) 11/21/24 01:32
pH 7.37 (7.35-7.45) 11/21/24 02:25
pCO2 86 mmHg (35-48) H* 11/21/24 02:25
pO2 142 mmHg (83-108) H 11/21/24 02:25
HCO3 49.7 mmol/L (21-28) H* 11/21/24 02:25
Total Bilirubin 0.7 mg/dl (0.2-1.3) 11/21/24 01:32
AST 33 U/L (17-59) 11/21/24 01:32
ALT 20 U/L (0-50) 11/21/24 01:32
Alkaline Phosphatase 75 U/L (38-126) 11/21/24 01:32
Troponin I 0.073 ng/ml H* 11/21/24 01:32
Impression/Plan
-
A/P: Patient is a 74y M with PMH significant for ASCVD, combined respiratory failure, COPD and PA-Fib who presents to ED after unresponsive episode at home.
Unresponsive Episode
- Admit for further evaluation and treatment.
- Not at all clear regarding events leading to his stay - fell asleep watching TV but family unable to wake him.
- He did wake when slapped but had low BP for EMS and concerning EKG changes prompting STEMI alert activation.
- Currently awake, alert and oriented.
- No evidence of culprit lesion / STEMI on cath findings.
- Follow for any new / recurrent episodes. Follow hemodynamics.
- ? transient unresponsiveness due to acute on chronic respiratory failure issues as noted below.
Acute Macrocytic Anemia
- Hgb today is 6.1 compared to prior baseline of 12.
- Patient does admit to recently noting consistently black / tarry stools.
- Suspect upper GI bleeding.
- IV PPI BID.
- GI evaluation for additional recommendations / endoscopic examination.
- Transfused 2 units so far - follow H&H and provide additional transfusion if needed.
- Hold Eliquis and clopidogrel acutely.
- Check iron studies, B12. folate, etc.
Acute on Chronic HFrEF
Right Pleural Effusion / Atelectasis
- Mildly elevated LVEDP on cath c/w hypervolemia.
- CXR / exam with probable R effusion - though ? volume loss component with some mediastinal shift to the R.
- Continue usual Lasix per Cardiology recs.
- Follow I/Os, daily weights, etc.
- IR evaluation for possible dx / tx thoracentesis.
COPD
Chronic Hypoxemic and Hypercapnic Respiratory Failure
- Seems stable / at baseline at present.
- Oxygenation adequate on supplemental O2.
- ABG shows chronic / compensated respiratory acidosis.
- ? acute hypoxemia or hypercapnia at home that led to unresponsive episode?
- Continue current inhaled medications.
- Pulmonary evaluation for additional recommendations.
- Encourage smoking cessation though patient does not seem interested.
ASCVD
Non-Ischemic Myocardial Injury
- Cath results as noted without acute / culprit lesion identified.
- Cardiology evaluation for ongoing recommendations.
- Eliquis and Plavix on hold acutely.
- Would give ASA 81mg daily for now given h/o stents, etc.
- Continue statin.
Paroxysmal Atrial Fibrillation
- Stable. Continue metoprolol with holding parameters.
- Holding Eliquis acutely as noted above.
Benign Hypertension
- Currently relatively hypotensive - despite evidence of elevated LVEDP on cath.
- Hold most antihypertensive medications acutely.
- Holding parameters for metoprolol.
DM-II
- Stable. Hold PO medications.
- Follow glucose and cover with SSI as needed.
- Update A1C.
DVT Prophylaxis: SCDs
Code Status: Full
[2024-11-21 07:28] LABS: Lactic Acid 0.8 mmol/L (0.7-2.0)
--- NOTE | 2024-11-21 07:37 | CON.GI ---
Addendum entered and electronically signed by Torey Henry DO 11/21/24 18:13:
I saw and examined the patient.
The ASSISTANT MANAGER PT's note was reviewed and I agree with the note.
Comment: Mr. Nelson is a 74 y.o male with past medical history as outlined below who presented after being found down from home and found to have EKG changes concerning for a STEMI. Cath did not reveal any culprit lesion, however noted a new large
R pleural effusion and labs significant for macrocytic anemia with a Hgb 6s w/ MCV 100s (from prior baseline 12s 07/2024). He does endorse having 'jet black stools' 1-2 weeks prior to his presentation and concern for potential UGIB based on this. No
prior EGD or colonoscopy in the past or previous history of GI bleeding. Last dose of plavix/eliquis on 11/20. Would continue to hold pending his ongoing transfusions and severe anemia. Check anemia w/u and start IV iron if iron deficient. Will
consider pursing an EGD later this week pending his clinical course, likely on , 11/23/2024. If EGD is unremarkable would consider a colonoscopy later this admission. See rest of care as outlined below.
GI will continue to follow.
Addendum entered and electronically signed by JUAN Wray 11/21/24 09:39:
reviewed with nursing staff no stools this am will allow low residue/low cholesterol diet for now
Original Note:
Consultation
-
Date/Time Consultation Requested: 11/21/24 0600
Date/Time Consultation Performed: 11/21/24 0730
Requesting Provider: David Blanco DO
Performing Provider: JUAN Deluca, Torey Henry DO
Reason for Consultation: anemia
Medical History
Chief Complaint / HPI
Chief Complaint: unresponsiveness prior to admission
History of Present Illness:
Pt is a 74yo with hx CAD, CHF, prior CABG/stent, IA, PVD, NSVT, atrial tach, PAF/aflutter on Eliquis, COPD, TIA, HTN, hypercholesterolemia, NIDDM, sleep apnea, hep C, ETOH/tobacco abuse brought to ER after found down at home with EKG changes with
concern for STEMI. He was taken to cath labs which did not reveal culprit but noted with new large right pleural effusion and severe anemia. On admission noted with hbg 7.1 with drop to 6.1 after admission with prior hbg 12 range in July 2024.
MCV 105.3 on admission. Pt was noted with several recent admission last few months with CHF and in June also noted with aflutter and Eliquis was added.
At this time patient denies hx EGD or colonoscopy in past. He denies odynophagia, dysphagia, GERD, nausea, vomiting, abdominal pain, diarrhea, constipation or rectal bleeding.
Past Medical History
Past Medical History: Arrhythmias (NSVT, Atach, PAF/aflutter ), CAD, CHF, COPD, CVA (TIA), HTN, Hypercholesterolemia, NIDDM, IA and Other (sleep apnea, hep C, PVD, ETOH/tobacco abuse, non healing wounds, bedbugs 05/2024 admission)
Past Surgical History: Appendectomy, Cardiac (stents, CABG), Orthopedic, Tonsilectomy and Other (right femeroal endarterectomy with saphenous vein angioplasty and right femoral to PT bypass 2022 )
Social History
Tobacco: Smoker
Alcohol: Occasional (beer)
Drug: Marijuana
Living: With Family (nephew )
Employment: Retired
Family History
Family History: Other (denies family hx GI issues )
Allergies / Home Medications
Allergy/AdvReac Type Severity Reaction Status Date / Time
Sulfa (Sulfonamide Allergy hives,itchi Verified 11/21/24 01:55
Antibiotics) ng
�Medication �Instructions �Recorded
isosorbide mononitrate 60 mg 60 mg PO DAILY Heart 02/26/11
tablet,extended release 24 hr Disease/Condition
clopidogrel 75 mg tablet (Plavix) 75 mg PO DAILY Blood Clot 07/25/23
Prevention/Tx
fluticasone fur. 100 mcg-umeclid 1 inh inhalation R QPM 07/25/23
62.5 mcg-vilant 25 mcg Lung/Breathing Issues
inhalat.powder (Trelegy Ellipta)
atorvastatin 80 mg tablet 80 mg PO HS High Cholesterol 07/26/23
albuterol sulfate 90 mcg/actuation 2 puff inhalation R QIDPRN PRN sob 07/16/24
aerosol inhaler
folic acid 1 mg tablet 1 mg PO DAILY Supplement 07/16/24
lisinopril 40 mg tablet 40 mg PO DAILY Blood Pressure 07/16/24
amiodarone 200 mg tablet 200 mg PO DAILY Arrhythmia 30 days 07/24/24
#30 tabs
apixaban 5 mg tablet (Eliquis) 5 mg PO BID Blood clot 07/24/24
prevention/tx 30 days #60 tabs
metformin 500 mg tablet 500 mg PO DAILY Diabetes 08/18/24
thiamine HCl (vitamin B1) 100 mg 100 mg PO DAILY Supplement 08/18/24
tablet
ferrous sulfate 325 mg (65 mg 325 mg PO DAILY #30 tabs 08/23/24
iron) tablet
furosemide 20 mg tablet (Lasix) 60 mg (3 x 20 mg) PO BID #180 tabs 08/23/24
metoprolol succinate 50 mg 50 mg PO BID #60 tabs 08/23/24
tablet,extended release 24 hr
ropinirole 0.5 mg tablet 0.5 mg PO HS #30 tabs 08/23/24
Review of Systems
-
History Source: Patient
Constitutional: Reports Other (weight up and down with heart issues )
EENT: Reports Other (dry mouth )
Respiratory: Reports Trouble Breathing (minimal but admits to minimal activity )
Cardiac: Reports No Symptoms
Abdomen/GI: Reports No Symptoms
: Reports No Symptoms
Musculoskeletal: Reports Other (difficulty with walking uses cane for mobility )
Skin: Reports Other (LE rash follows with wound center )
Neurological: Reports Weakness
Endocrine: Reports No Symptoms
Hematologic/Lymphatic: Reports No Symptoms
Vital Signs
Temp Pulse Resp BP Pulse Ox
98.2 F 68 20 92/57 98
11/21/24 07:22 11/21/24 06:21 11/21/24 07:22 11/21/24 06:21 11/21/24 07:22
Physical Exam
Exam
General: Other (awake and alert forgetful to some questions.)
HEENT: Normocephalic and Anicteric
Respiratory: Clear
Cardiac: Regular Rhythm and Peripheral Edema
GI: Soft, Non Tender and Non Distended
Musculoskeletal: No Clubbing and No Cyanosis
Skin: Warm and Dry
Neuro: Awake, Alert and Other (forgetful to some questions)
Psych: Calm
Results
WBC 8.4 10^3/uL (4.8-10.8) 11/21/24 02:17
Hgb 6.1 g/dL (13.0-18.0) L* 11/21/24 02:17
Hct 22.2 % (39.0-52.0) L 11/21/24 02:17
MCV 102.3 fL (80.0-94.0) H 11/21/24 02:17
Plt Count 360 10^3/uL (130-400) 11/21/24 02:17
Absolute Neuts (auto) 6.9 10^3/uL (1.4-6.5) H 11/21/24 01:32
APTT 25.1 Sec (23.4-35.0) 11/21/24 01:32
Sodium 136 mmol/L (135-145) 11/21/24 01:32
Potassium 3.8 mmol/L (3.5-5.1) 11/21/24 01:32
Chloride 80 mmol/L (98-107) L 11/21/24 01:32
Carbon Dioxide 39 mmol/L (22-30) H 11/21/24 01:32
BUN 28 mg/dl (9-20) H 11/21/24 01:32
Creatinine 0.8 mg/dL (0.7-1.3) 11/21/24 01:32
Calcium 9.1 mg/dl (8.4-10.2) 11/21/24 01:32
Total Bilirubin 0.7 mg/dl (0.2-1.3) 11/21/24 01:32
AST 33 U/L (17-59) 11/21/24 01:32
ALT 20 U/L (0-50) 11/21/24 01:32
Alkaline Phosphatase 75 U/L (38-126) 11/21/24 01:32
Diagnostic Image Results:
11/21/24 US Abdomen Limited
1. Small volume of ascites.
2. 1.2 cm calcification in the fundus of the gallbladder which appears be located in the gallbladder wall surrounded by intramural cystic changes or septations. Diagnostic possibilities are (1) cholelithiasis or (2) adenomyomatosis.
07/16/24 CT Abd Aorta Angio W/ Run Off
1. Patent right femoral to posterior tibial arterial bypass graft.
2. Chronic complete occlusion of the entire right superficial femoral artery with reconstitution at the level of the popliteal artery.
3. Chronic occlusion of the left superficial femoral artery at its origin with some reconstitution of flow at the level of the severely stenotic distal left SFA and popliteal artery.
4. Patent stent in the left common femoral artery/profunda femoris.
5. Severe aortobiiliac calcified atherosclerosis.
6. Infrarenal abdominal aortic aneurysm measuring 3.6 cm diameter.
7. Mild abdominopelvic ascites.
8. Chronic findings, as detailed abo
Prior GI Procedures:
EGD: none
Colonoscopy: none
Assessment / Plan
-
Pt is a 74yo with hx CAD, CHF, prior CABG/stent, IA, PVD, NSVT, atrial tach, PAF/aflutter on Eliquis, COPD, TIA, HTN, hypercholesterolemia, NIDDM, sleep apnea, hep C, ETOH/tobacco abuse brought to ER after found down at home with EKG changes with
concern for STEMI. He was taken to cath labs which did not reveal culprit but noted with new large right pleural effusion and severe anemia. On admission noted with hbg 7.1 with drop to 6.1 after admission with prior hbg 12 range in July 2024.
MCV 105.3 on admission. Pt was noted with several recent [facility] admission last few months with CHF and in June also noted with aflutter and Eliquis was added.
-anemia- macrocytic
-large right pleural effusion
-elevated troponin on admission with EKG change s/p cath
-hep C ab +
-PAF with start of Eliquis in June
-PAD/TIA on Plavix
-prior noted abdominal ascites
-hepatic steatosis
-
other med problems:
-CAD
-CHF
-COPD
-prior CABG/stent/IA
-PVD with prior bypass
-HTN
-hypercholesterolemia
-NIDDM
-sleep apnea
-ETOH/tobacco abuse
-hx bedbugs
PLAN:
Etiology of anemia unclear-- newly noted after start of Eliquis several months ago but macrocytic
add iron studies, B12, folate
agree with transfusion
cont to trend hbg
cont PPI
heme check stools
no hx EGD or colon in past-- can consider but will review with Dr. Henry with multiple other medical issues
cont to hold Eliquis and Plavix- last dose 11/20
for thoracentesis today will add para if able to hx ascites on prior imaging but does not appear to have primary liver issues with normal platelets and albumin (INR not reliable with Eliquis use)
add hep C RNA to confirm if any active infection as noted + hep C ab
will follow
-
-
Thank you for consultation and allowing me to participate in the patient's care. Please call the litigation services manager GI physician during the after hours with any questions or concerns.
[2024-11-21] MEDS: VENTOLIN NEBULES 2.5 MG INH (07:49)
[2024-11-21] MEDS: SYMBICORT 80/4.5 MCG INHALER INH ×2 (07:49→07:53)
[2024-11-21] MEDS: SPIRIVA RESPIMAT 2.5 MCG INH ×2 (07:49→07:53)
[2024-11-21 07:59] LABS: Iron 65 ug/dl (49-181); LDH 135 U/L (120-246); Total Protein 5.1 g/dl (6.3-8.2)
[2024-11-21 08:08] LABS: Percent Saturation 18 % (20-50); Total Iron Binding Capacity 359 ug/dl (261-462)
[2024-11-21 08:27] LABS: TSH Reflex To Free T4 0.93 uIU/ml (0.47-4.68)
--- NOTE | 2024-11-21 08:30 | PTCARENOTE ---
pt received from previous RN, oriented but forgetful at times. pt attempted to go to bathroom by himself, pt placed back to bed and bed alarm in place. SR on the monitor. DP pulses verified by Doppler. 6LNC. NPO. pt abdomen round. denies n/v. voids.
L leg wound dressing intact. L wrist ENEDINA. PIV x2. see worklist for VS, I&O, and assessment.
[2024-11-21] MEDS: NOVOLOG FLEXPEN-LOW RESISTANCE SC ×2 (08:48→12:39)
[2024-11-21 09:03] LABS: Folate 17.8 ng/ml (2.76-20); Vitamin B12 670 pg/ml (239-931)
[2024-11-21 09:07] LABS: Iron 50 ug/dl (49-181)
[2024-11-21 09:12] LABS: Glucose - Point of Care 164 mg/dl (70-99)
[2024-11-21 09:17] LABS: Percent Saturation 12 % (20-50); Total Iron Binding Capacity 403 ug/dl (261-462)
[2024-11-21 09:40] LABS: INR 1.37; PT 17.1 Sec (11.4-14.6)
[2024-11-21 09:55] LABS: Blood Urea Nitrogen 34 mg/dl (9-20); Calcium 8.3 mg/dl (8.4-10.2); Chloride 81 mmol/L (98-107); Estimated Creatinine Clearance 74 ml/min; Glucose 148 mg/dl (70-99); Magnesium 1.5 mg/dl (1.6-2.3); Potassium 3.3 mmol/L (3.5-5.1); Sodium 136 mmol/L (135-145); eGFR > 60.00
[2024-11-21 09:58] LABS: Hematocrit 24.6 % (39.0-52.0); Mean Corp Hgb Conc. 28.5 g/dL (33.0-37.0); Mean Corpuscular Hgb 28.6 pg (27.0-31.0); Mean Corpuscular Volume 100.4 fL (80.0-94.0); Mean Platelet Volume 9.8 fL (7.4-10.4); Platelet Count 330 10^3/uL (130-400); Red Blood Cell Count 2.45 10^6/uL (4.70-6.10); Red Cell Dist. Width 17.2 % (11.5-14.5); White Blood Cell Count 8.7 10^3/uL (4.8-10.8)
[2024-11-21 10:15] LABS: Folate > 20.0 ng/ml (2.76-20); Vitamin B12 649 pg/ml (239-931)
--- NOTE | 2024-11-21 10:15 | PTCARENOTE ---
ECHO completed, labs drawn. MD aware of results. 2nd unit of PRBC transfusing, pt transported to [facility] via bed.
[2024-11-21 10:47] LABS: Carbon Dioxide 48 mmol/L (22-30)
--- NOTE | 2024-11-21 11:18 | PTCARENOTE ---
report received from IR, PRBC finished transfusing in IR @1035, VS completed @1037.
[2024-11-21 11:32] LABS: Glycohemoglobin (HgbA1c) 5.1 % (4.0-5.6)
[2024-11-21 11:37] LABS: Body Fluid pH 7.61
--- NOTE | 2024-11-21 11:38 | CON.PUL ---
Consultation
Consultation Request
Date/Time Consultation Requested: 11/21/2024
Date/Time Consultation Performed: 11/21/2024
Requesting Provider: Dr. Blanco
Performing Provider: Dr. Irwin Mckeon
Reason for Consultation: Hypercapnic respiratory failure
Medical History
-
Chief Complaint: Worsening SOB + lower extremity/abdominal swelling
History of Present Illness:
74-year-old male active tobacco smoker with a past medical history of hyperlipidemia, hypertension, CAD, PAD s/p right femoral endarterectomy with femoral bypass and chronic HFpEF, recently seen in my office for advanced COPD at that time symptoms
were stable. He was transition to nebulized therapy, a sleep study was ordered as well. His mental status was baseline and he was accompanied by his daughter at that time.
-
Admitted to the hospital 11/21/2024 after being found unresponsive at home. [facility].
Apparently patient was watching TV and fell asleep at the table. Family found him reportedly unresponsive. After aggressive stimulation he woke up. 911 was called in. Apparently incontinent of stool.
EKG showed changes concerning for lateral ST elevation myocardial infarction underwent cardiac catheterization emergently. Revealed nonobstructive coronary artery disease with patent bypass and stents.
LVEDP of 19.
-
We were consulted 11/21/2024 to evaluate his chronic pulmonary issues.
PMHx: Hyperlipidemia, hypertension, CAD s/p CABG, history of hepatitis C, MARIJA, angina pectoris, PAD with history of right femoral endarterectomy with femoral bypass, chronic HFpEF, A-fib, history of COPD, NSVT, DM type II, history of bedbugs (05/2024
admission), history of CVA (2010)
PSHx: Right femoral endarterectomy with femoral bypass, right greater toe debridement, CABG
Past Medical History
Past Medical History: Other (Above as per HPI)
Past Surgical History: Other (Above as per HPI)
Social History
Tobacco: Smoker (Hx of 1-1.5 PPD, now smoking <0.25PPD, and has been smoking since 20 years old)
Alcohol: Occasional
Drug: None
Personal: Single
Living: With Family (nephew)
Employment: Retired
Family History
Family History: CAD (Father: of a heart attack)
Allergies / Home Medications
Allergies
Allergy/AdvReac Type Severity Reaction Status Date / Time
Sulfa (Sulfonamide Allergy hives,itchi Verified 11/21/24 01:55
Antibiotics) ng
Home Medications
�Medication �Instructions �Recorded �Confirmed �Last Taken �Type
isosorbide mononitrate 60 mg 60 mg PO DAILY Heart 02/26/11 11/21/24 08/18/24 History
tablet,extended release 24 hr Disease/Condition
clopidogrel 75 mg tablet (Plavix) 75 mg PO DAILY Blood Clot 07/25/23 11/21/24 08/18/24 History
Prevention/Tx
fluticasone fur. 100 mcg-umeclid 1 inh inhalation R QPM 07/25/23 11/21/24 08/17/24 History
62.5 mcg-vilant 25 mcg Lung/Breathing Issues
inhalat.powder (Trelegy Ellipta)
atorvastatin 80 mg tablet 80 mg PO HS High Cholesterol 07/26/23 11/21/24 08/17/24 History
albuterol sulfate 90 mcg/actuation 2 puff inhalation R QIDPRN PRN sob 07/16/24 11/21/24 08/18/24 History
aerosol inhaler
folic acid 1 mg tablet 1 mg PO DAILY Supplement 07/16/24 11/21/24 08/18/24 History
lisinopril 40 mg tablet 40 mg PO DAILY Blood Pressure 07/16/24 11/21/24 08/18/24 History
amiodarone 200 mg tablet 200 mg PO DAILY Arrhythmia 30 days 07/24/24 11/21/24 08/18/24 Rx
#30 tabs
apixaban 5 mg tablet (Eliquis) 5 mg PO BID Blood clot 09/11/21/24 08/18/24 Rx
prevention/tx 30 days #60 tabs
metformin 500 mg tablet 500 mg PO DAILY Diabetes 08/18/24 11/21/24 08/18/24 History
thiamine HCl (vitamin B1) 100 mg 100 mg PO DAILY Supplement 08/18/24 11/21/24 08/18/24 History
tablet
ferrous sulfate 325 mg (65 mg 325 mg PO DAILY #30 tabs 08/23/24 11/21/24 Unknown Rx
iron) tablet
furosemide 20 mg tablet (Lasix) 60 mg (3 x 20 mg) PO BID #180 tabs 08/23/24 11/21/24 Unknown Rx
metoprolol succinate 50 mg 50 mg PO BID #60 tabs 08/23/24 11/21/24 Unknown Rx
tablet,extended release 24 hr
ropinirole 0.5 mg tablet 0.5 mg PO HS #30 tabs 08/23/24 11/21/24 Unknown Rx
Review of Systems
-
History Source: Patient
All other systems: Negative unless noted
Vitals / Labs / Diagnostic Testing
Vital Signs
Temp Pulse Resp BP Pulse Ox
97.8 F 68 22 98/68 98
11/21/24 10:50 11/21/24 11:10 11/21/24 11:10 11/21/24 11:10 11/21/24 11:10
Lab Data
11/21/24 09:17
11/21/24 09:17
Laboratory Results
11/21/24 11/21/24 11/21/24
01:32 02:25 09:17
PT 17.1 H
INR 1.37
APTT 25.1
pH 7.37
pCO2 86 H*
pO2 142 H
HCO3 49.7 H*
O2 Delivery Level 4l nc
Diagnostic Testing:
Physical Exam
-
HEENT: Normocephalic
Cardiovascular: S1/S2
Respiratory: Clear, Wheeze (n), Non-Labored Respirations and Other (Decreased breath sounds on the right)
GI: Soft and Non Distended
Neurology: Awake, Alert, Oriented and No Motor Deficits
Skin: Warm
General: Comfortable
Assessment
-
74-year-old man with multiple medical problems. Advanced COPD. Chronic hypercapnic and hypoxemic respiratory failure. Coronary artery disease post bypass, peripheral vascular disease, ongoing smoking, alcohol abuse disorder. Admitted through the
emergency room with change in mental status. Alert for possible ST myocardial infarction. Underwent cardiac catheterization that showed nonobstructive coronary artery disease. We were consulted on 11/21/2024 for evaluation of his chronic medical
problems.
Chronic hypercapnic respiratory failure-due to advanced COPD. Not on acute exacerbation.
ABG 11/21/2024: 7.37/86/142
Acute abrupt onset of mental status change-back to baseline
Right pleural effusion: 11/21/2024 status post thoracentesis 1900 cc of clear pleural fluid.
Present since July 2024 based on chest x-ray.
EKG changes initially admitted as ST elevation myocardial infraction alert
Cardiac catheterization 11/21/2024: Nonobstructive coronary artery disease. Elevated LVEDP at 19.
-
# Lung nodule 7.4 mm on CAT scan January 2024-due for repeat CT. Request given 11/16/2024.
#Active tobacco smoker-ongoing
# Advanced COPD due to tobacco use not in an acute exacerbation
Chronic hypoxemic respiratory failure 2-3 L of supplemental oxygen.
On Trelegy
Last seen by Dr. Mckeon 11/16/2024
PFT 2022 - 1.43L 46%
#Paroxysmal A-fib/flutter on Eliquis
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
#CAD s/p CABG
#PAD with Hx of right femoral endarterectomy and femoral bypass
#DM type II (HbA1C: 7.5 on 08/19/2024)
Assessment and plan:
From the pulmonary perspective he does not appear to be in acute exacerbation.
Patient does have chronic bronchitic symptoms/smoker's cough.
His ABG is compensated but with significantly increased pCO2. Baseline.
-
On his recent outpatient follow-up with me 11/16/2024: The plan was to transition him to nebulized therapy with Brovana/Pulmicort and Yupelri.
He has been using Trelegy. Currently on Spiriva and Symbicort while in the hospital.
The plan also was to get a split-night study to start noninvasive mechanical ventilation. It is unclear whether this patient can undergo a polysomnogram with mobility issues, transportation issues etc. I discussed this with the daughter.
Will attempt to get a noninvasive mechanical ventilation prior to discharge, he is at high risk for readmission.
Start BiPAP 15 with naps and at bedtime.
-
Avoid sedatives
His mental status is back to baseline
TSH was normal
Will check UDS
Alcohol level
-
Right pleural effusion: It has been present since at least July 2024.
Will wait for chemistry
Ultrasound of the abdomen 11/21/2024:Does not mention cirrhosis.
Prior CT chest January 2024 showed no evidence for any pulmonary mass on the right. He has a groundglass pulmonary nodule that needs to be followed. He has a request for repeat CT chest given by me to him on 11/16/2024.
Doubt malignant or infectious in etiology-we wait for culture and cytology.
With increased LVEDP suspect volume overload. Check proBNP.
Unable to tolerate Diamox due to sulfa allergy.
Continue Lasix
Follow renal function electrolytes-check BMP and magnesium at 3 PM.
-
Macrocytic anemia-possibly related to alcohol. Hemoglobin of 6.1. New development since late last year.
Patient is on Eliquis/Plavix. Currently on hold
Patient to get transfused, will need diuretics post likely.
May need EGD
GI following
-
DVT prophylaxis: SCDs for now.
-
Given multiple comorbidities, advanced COPD Dr. Mckeon discussed with daughter on 11/16/2024 about advanced directives. She was close discussed further.
[2024-11-21 12:00] LABS: B.E. 22.6 mmol/L; O2 Saturation % 99.3 % (94-98); PO2 109 mmHg (83-108); pH 7.41 (7.35-7.45)
[2024-11-21 12:03] LABS: HCO3 50.1 mmol/L (21-28); PCO2 79 mmHg (35-48)
[2024-11-21 12:08] LABS: Glucose - Point of Care 146 mg/dl (70-99)
[2024-11-21] MEDS: PACERONE 200 MG PO (12:13)
[2024-11-21] MEDS: PROTONIX IV 40 MG IV ×2 (12:13→19:25)
[2024-11-21] MEDS: KCL 40 MEQ PO (12:13)
[2024-11-21] MEDS: LOW STRENGTH ASPIRIN 81 MG PO (12:13)
[2024-11-21] MEDS: NSS (PRESERVATIVE FREE) 10 ML IV ×3 (12:13→19:25)
[2024-11-21] MEDS: MAGNESIUM SULFATE 100 IV (12:14)
[2024-11-21 12:16] LABS: Body Fluid LDH 98 U/L
[2024-11-21 12:35] LABS: Body Fluid Mononuclear 88.2 %; Body Fluid Polymorphonuclear 11.8 %; Body Fluid WBC 178 /CUMM
--- NOTE | 2024-11-21 12:40 | PTCARENOTE ---
aware of lab results. mag and K repleted as ordered. Dr. Mckeon aware of ABG results. bed alarm in place. R back bandaid in place.
[2024-11-21 12:42] LABS: Body Fluid Second Tech AMA
[2024-11-21] MEDS: TOPROL XL 50 MG PO (13:03)
--- NOTE | 2024-11-21 13:13 | W.PN.CARDCBS ---
Addendum entered and electronically signed by Shadi Riggs MD 11/21/24 14:28:
I saw and examined the patient.
The BEEF SELECTOR or PA's note was reviewed and I agree with the note.
Comment: General: Well developed, well nourished in NAD.
Neck: Supple, no JVD, HJR, carotids +2 B/L, no bruits bilaterally.
Heart: Non displaced PMI, RRR, no murmurs, No S3, S4, no rubs.
Lungs: Scattered rhonchi
Extremities: No clubbing, cyanosis or edema bilaterally.
Neuro: Grossly nonfocal, awake, alert and oriented x3.
Presumably syncope was due to volume depletion. Eliquis on hold with severe anemia and is getting transfusion. Remains in sinus rhythm. Will change Lasix to IV.
Original Note:
Today's Communication / Plan
-
Change Lasix to IV and follow BMP
Eliquis on hold, but in SR
51 min in coordination of care and face to face
Impression / Plan
-
Housekeeper/Custodian/Laundry Worker: Dr Riggs
Impression:
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
Out of hospital STEMI alert 11/21/2024
no evidence of culprit lesion by cardiac cath to explain patient's presentation 11/13/2024
Elevated Troponin
CAD
s/p remote CABG at [facility] with SHEEHAN to LAD
PCI with unclear details at [facility]
Acute macrocytic anemia, Hgb on admission 6.1
Melena
Acute on chronic HFpEF
History of CVA 2010
Paroxysmal atrial fibrillation/flutter
Chronic Eliquis OAC
Chronic amiodarone therapy
PAD
s/p right femoral endarterectomy with saphenous vein angioplasty and right femoral to PT bypass 07/1123
chronic Plavix therapy
Poor medical compliance
Osteomyelitis toe
COPD
HTN
HLD
DM2
Ongoing tobacco use
h/o bedbugs 06/17 admission
Pleural effusion
s/p right sided thora for 1.9 L 11/21/24
Dobutamine nuclear stress test 07/29/23 finds large inferior and basal inferior septal infarct without stephanie-infarct ischemia. Baseline LVEF 43%
Echo 07/28/23 finds normal LV size and function with LVEF in the low normal range estimated at 51% with basal to mid inferior wall severe hypokinesis. No significant valvular disease.
Echo 06/12/2024: EF 50%, basal inferior wall hypokinetic on parasternal short axis views, RV mildly dilated, mildly dilated RA, no significant valvular disease noted
Echo 11/13/2024: EF 50%, stage II diastolic dysfunction, trace MR, mild TR with PAP 44 mmHg no
Plan:
-Patient came to ER early this morning as a prehospital STEMI alert and was taken to the [facility] by Dr. Campbell where he was found to have no evidence of culprit lesion to explain presentation or ECG changes.
-Initial troponin 0.073, will trend and additional troponin ordered by me now.
-ECG on admission reviewed by me with SR and inferior and anterolateral ST changes. Recheck ECG now, ordered by me.
-proBNP pending. Patient has a history of recurrent admissions for acute on chronic HFpEF and has a history of medication noncompliance. Patient was supposed to be taking Lasix 60 mg BID prior to admission, but unclear if he was actually doing
this. Currently ordered Lasix 60 mg PO BID, but will change to Lasix 60 mg IV BID given need for transfusions. Follow renal function
-EF preserved by echo without new WMA and no significant valve disease.
-Outpatient dose of Toprol XL 50 mg BID has been continued
-Outpatient dose of lisinopril 40 mg daily is on hold due to hypotension
-Patient with 1.9 L out by right sided thoracentesis 11/13/2024.
-Hgb 6.1 on admission and patient has received 2 units of PRBCs. Patient is macrocytic. GI is now following. Patient with history of abdominal ascites and so plan is for possible paracentesis 11/21/2024
-Outpatient dose of Eliquis 5 mg BID is on hold
-Patient with known paroxysmal Afib. ECG looks like SR. Cont amiodarone 200 mg daily. QTc 427 ms
-Outpatient dose of Plavix is for h/o RLE bypass 07/2023
HPI: This is a 74-year-old man with multiple medical conditions including coronary artery disease status post distant CABG, who presents with loss of consciousness and lateral ST elevations on initial EKG. Given his history and findings the Cath
Lab was activated for emergent coronary angiography which did not reveal a culprit to explain his presentation. Relevant findings include a new large right pleural effusion and new severe anemia with hemoglobin of 6 from prior baseline of 12. 2
units of blood were ordered. The patient will be admitted to the hospitalist service for further workup and management with cardiology following. Administered 2 units of blood and trend hemoglobin. Further workup to determine cause of anemia.
For now, would hold Eliquis and Plavix while working up cause of anemia.
Resume patient's home diuretic regimen, but hold additional GDMT for now given mild hypotension until hemodynamics allow restart.
Progress Note - Housekeeper/Custodian/Laundry Worker
Subjective
Date of Service: November 21, 2024
He is tired, no CP
Objective
Labs:
11/21/24 09:17
Labs
Hgb 7.0 g/dL (13.0-18.0) L 11/21/24 09:17
Hct 24.6 % (39.0-52.0) L 11/21/24 09:17
Plt Count 330 10^3/uL (130-400) 11/21/24 09:17
PT 17.1 Sec (11.4-14.6) H 11/21/24 09:17
INR 1.37 11/21/24 09:17
APTT 25.1 Sec (23.4-35.0) 11/21/24 01:32
Sodium 136 mmol/L (135-145) 11/21/24 09:17
Potassium 3.3 mmol/L (3.5-5.1) L 11/21/24 09:17
BUN 34 mg/dl (9-20) H 11/21/24 09:17
Creatinine 0.9 mg/dL (0.7-1.3) 11/21/24 09:17
Glucose 148 mg/dl (70-99) H 11/21/24 09:17
Troponins
11/21/24
01:32
Troponin I 0.073 H*
Vital Signs and I&O:
Vital Signs
Temp Pulse Resp BP Pulse Ox
98.0 F 66 18 109/61 93
11/21/24 11:47 11/21/24 12:30 11/21/24 11:47 11/21/24 12:14 11/21/24 11:47
Vital Signs
Temp Pulse Resp BP Pulse Ox
98.0 F 66 18 109/61 93
11/21/24 11:47 11/21/24 12:30 11/21/24 11:47 11/21/24 12:14 11/21/24 11:47
Intake & Output
11/19/24 11/20/24 11/21/24 11/22/24
06:59 06:59 06:59 06:59
Intake Total 250 / 250 500 / 500
Output Total 525 / 525
Balance -275 / -275 500 / 500
Physical Exam
Physical Exam
GEN: NAD
HEENT: mmm
LUNGS: 6 L NC. No audible wheeze
CV: SR on tele
ABD: distended
EXT: Trace B/L LE edema
NEURO: Gross non-focal
SKIN: No rash
--- NOTE | 2024-11-21 14:20 | CM ---
Reviewed chart. Met with Mr. Alvarez to review discharge plans. He states prior to admission he resides with his nephew in a second floor codo with twelve steps to enter. He states prior to admission he ambulates independently most of the time
but does at times use a hurricane cane. He states he has a single point cane, Nebulizer, and home 02 from [facility]. He states he is current with [facility]. He states he has been in [facility] in the past for SNF/Rehab. He
states he has a prescription plan and uses [facility]. Will need to see his current functional level to see if he will have any skilled care needs. Medical work-up in progress. The discharge plan is to go home with his nephew and
resumption of [facility] if indicated when medically stable.
[2024-11-21 14:22] LABS: Amphetamines Negative (Negative); Barbiturates Negative (Negative); Benzodiazepines Negative (Negative); Buprenorphine Negative (Negative); Cocaine Negative (Negative); Marijuana Positive (Negative); Methadone Negative (Negative); Methamphetamines Negative (Negative); Opiates Negative (Negative); Phencyclidine Negative (Negative); Tricyclic Antidepressants Negative (Negative)
--- NOTE | 2024-11-21 14:45 | W.PN.HOSP.TC ---
Today's Communication/Plan
-
Assessment / Plan
Assessment / Plan
Gen-AA, NAD
HEENT-NC, AT, anicteric, clear oral mm
Neck-supple
CV-reg, no M, +S1/S2
Lungs-clear B/L
Abd-soft, NT, ND
Musculoskeletal-no edema, no deformity
Skin-warm and dry
Neuro-grossly non-focal, slightly confused
Psych-anxious, cooperative
Mr. Nelson is a 74y M with PMH significant for severe COPD with chronic hypoxemic and hypercapnic respiratory failure, ASCVD and PA-Fib who presents to ED as STEMI alert after being found unresponsive at home.
Anemia requiring transfusion:
-Baseline hemoglobin appears to be around 12, but was 7.1 at time of admission and later dropped to 6.1 after admission
-Transfused total of 2 units PRBCs so far
-Report of dark stools
-On Eliquis and Plavix at home for A-fib and PAD/TIA, currently holding with last dose taken 11/20
-Continue high-dose PPI
-Will check Hemoccult
-GI following, will follow-up regarding further recommendations
Encephalopathy:
-Likely metabolic due to acute on chronic respiratory failure with hypercarbia, also contributed to by acute anemia requiring transfusions
-Attempt NIPPV as tolerated
-Pulmonology following, recommendations appreciated
-Treat anemia as above
Chronic HFrEF with acute exacerbation:
-History of ischemic cardiomyopathy
-Most recent echo 11/13/2024 showed improved ejection fraction of 50% with stage II diastolic dysfunction
-Unclear if patient was adherent with his outpatient medication regimen
-Now has large right pleural effusion
-Continue aggressive diuresis with Lasix 60 mg IV twice daily, monitor I's and O's and daily weights
-Beta-blockade with metoprolol succinate 50 mg twice daily
-Holding home Imdur and lisinopril due to hypotension
Acute on chronic respiratory failure with hypercapnia and hypoxia:
-History of COPD
-Currently appears to be retaining CO2 based on ABG
-Pulmonology following, plan for NIPPV as tolerated
-Patient has sulfa allergy and so not able to tolerate Diamox
Right pleural effusion:
-Large right pleural effusion noted on chest imaging
-Status post right thoracentesis today 11/20 with 1.9 L taken off, clear appearing pleural fluid
-Continue aggressive diuresis
Abnormal EKG:
-Emergent cardiac cath overnight 11/20-11/21 revealed no obstructive disease
-Continue aspirin and statin
NIDDM:
-Holding home metformin
-Accu-Cheks with sliding scale as needed
CODE STATUS: Full code
Anticipated Discharge: > 48 hours
Subjective/Interval History
-
Date of Service: November 21, 2024
Mr. Nelson was seen and examined this morning. He has been transfused 1 unit PRBCs overnight and is pending transfusion of 1 more unit. He underwent emergency cardiac catheterization for EKG concerning for STEMI, however no acute obstructive
disease was noted.
Objective Data
-
Labs:
Laboratory Results
11/21/24 11/21/24 11/21/24
02:17 09:17 11:50
WBC 8.4 8.7
Hgb 6.1 L* 7.0 L
Hct 22.2 L 24.6 L
Plt Count 360 330
PT 17.1 H
INR 1.37
HCO3 50.1 H*
Sodium 136
Potassium 3.3 L
Chloride 81 L
Carbon Dioxide 48 H
BUN 34 H
Creatinine 0.9
Glucose 148 H
Calcium 8.3 L
11/21/24
15:00
WBC
Hgb
Hct
Plt Count
PT
INR
HCO3
Sodium Pending
Potassium Pending
Chloride Pending
Carbon Dioxide Pending
BUN Pending
Creatinine Pending
Glucose Pending
Calcium Pending
Vital Signs:
Vital Signs
Temp Pulse Resp BP Pulse Ox
98.0 F 67 18 109/50 93
11/21/24 11:47 11/21/24 14:15 11/21/24 11:47 11/21/24 12:57 11/21/24 11:47
I&O
11/20/24 11/21/24 11/22/24
06:59 06:59 06:59
Intake Total 250 / 250 600 / 600
Output Total 525 / 525 150 / 150
Balance -275 / -275 450 / 450
Review of Systems
-
History Source: Patient
All other systems: Reviewed and negative
Physical Exam
-
General: No Apparent Distress
--- NOTE | 2024-11-21 16:00 | PTCARENOTE ---
pt VSS, pt ambulated to bathroom despite bed alarm going off. pt reminded needs to wait for RN or PCT to help patient to bathroom. pt also aware we have to heme test stools. lab work drawn.
[2024-11-21 16:03] LABS: Alcohol None Detected
[2024-11-21 16:07] LABS: Blood Urea Nitrogen 48 mg/dl (9-20); Calcium 8.5 mg/dl (8.4-10.2); Chloride 82 mmol/L (98-107); Estimated Creatinine Clearance 74 ml/min; Glucose 162 mg/dl (70-99); Magnesium 1.7 mg/dl (1.6-2.3); Potassium 3.7 mmol/L (3.5-5.1); Sodium 134 mmol/L (135-145); eGFR > 60.00
[2024-11-21 16:12] LABS: NT-proBNP 7630 pg/ml
[2024-11-21 16:18] LABS: Troponin I 0.084 ng/ml
--- NOTE | 2024-11-21 17:10 | PTCARENOTE ---
report given to IMU RN, updates given. Nupur Doll HADOOP ADMIN aware of heme +stool. RAC IV dc'd d/t bleeding, pressure held, dressing intact.
[2024-11-21 17:26] LABS: Carbon Dioxide 40 mmol/L (22-30)
[2024-11-21] MEDS: LIPITOR 80 MG PO (18:15)
[2024-11-21] MEDS: LASIX IV (18:35)
--- NOTE | 2024-11-21 18:35 | PTCARENOTE ---
Received patient by bed from IVU. Patient AAOx3 with some confusion and forgetfulness. Oriented to room and use of call liu. Bed alarm placed for impulsiveness. Patient c/o stuffiness. Sacrum foam placed for stage 2 sacral wound, LLE wound dressing
CDI. VSS, BPs soft, lasix held. Will closely monitor.
[2024-11-21 19:01] LABS: Glucose - Point of Care 165 mg/dl (70-99)
[2024-11-21] MEDS: NOVOLOG FLEXPEN-LOW RESISTANCE 1 UNITS SC (19:24)
[2024-11-21] MEDS: SYMBICORT 80/4.5 MCG INHALER 2 PUFF INH (19:37)
[2024-11-21] MEDS: MIRALAX PO (19:42)
[2024-11-21] MEDS: TOPROL XL PO (19:42)
--- NOTE | 2024-11-21 20:49 | PTCARENOTE ---
Rec'd pt at change of shift. Pt removed O2, dropped to 68% on RA. O2 replaced with slow improvement to 100% on 6L. O2 titrated to 4L at 98%. Pt able to stand/pivot to BSC with assistx1. Ate 100% of dinner without complication. Refuses miralax at
this time. Toprol held d/t SBP<100. Bed alarm in place d/t impulsitivity. Call liu within reach. Care ongoing.
[2024-11-21 23:42] LABS: Troponin I 0.086 ng/ml
[2024-11-22] VITALS (15 sets, daily range): BP systolic 79–118; BP diastolic 41–62; PULSE 2–67; BMI 25.2
--- NOTE | 2024-11-22 00:47 | PTCARENOTE ---
Pt attempted bipap, wore for few minutes then removed and stated he 'couldn't sleep with this'.
[2024-11-22 05:13] LABS: Hemoglobin 7.1 g/dL (13.0-18.0); Mean Corp Hgb Conc. 30.9 g/dL (33.0-37.0); Mean Corpuscular Hgb 28.3 pg (27.0-31.0); Mean Corpuscular Volume 91.6 fL (80.0-94.0); Mean Platelet Volume 9.7 fL (7.4-10.4); Platelet Count 315 10^3/uL (130-400); Red Blood Cell Count 2.51 10^6/uL (4.70-6.10); Red Cell Dist. Width 16.5 % (11.5-14.5); White Blood Cell Count 9.2 10^3/uL (4.8-10.8)
[2024-11-22 05:29] LABS: Blood Urea Nitrogen 49 mg/dl (9-20); Calcium 8.5 mg/dl (8.4-10.2); Chloride 82 mmol/L (98-107); Estimated Creatinine Clearance 83 ml/min; Glucose 130 mg/dl (70-99); Magnesium 1.7 mg/dl (1.6-2.3); Potassium 3.4 mmol/L (3.5-5.1); Sodium 133 mmol/L (135-145); eGFR > 60.00
[2024-11-22 05:48] LABS: Troponin I 0.076 ng/ml
[2024-11-22 07:21] LABS: Carbon Dioxide 46 mmol/L (22-30)
--- NOTE | 2024-11-22 07:49 | W.PN.GI.CBS2 ---
Addendum entered and electronically signed by Torey Henry DO 11/22/24 17:37:
I saw and examined the patient.
The REFINERY SUPERINTENDENT's note was reviewed and I agree with the note.
Comment: Agree with the detailed note as below and along with ongoing optimization prior to pursuing endoscopy. Given recent plavix and eliquis (last dose 11/20- ) and need to eventually restart both agents, he would benefit from both an EGD and
Colonoscopy rather than an EGD alone. No prior EGD or colonoscopy in the past or prior history of GI bleeding. Favor pursuing bi-directional endoscopy on 11/24/2024, for further evaluation of his heme (+) stools and component of iron
deficiency. Continue to trend serial H/h and transfuse for goal Hgb > 8.0. Rest of care as outlined below.
GI will continue to follow.
Original Note:
Today's Communication / Plan
-
Etiology of anemia unclear-- newly noted after start of Eliquis several months ago but macrocytic
PUD, ectasia, mass vs other
iron studies with some drop in ferritin and iron sat, B12/folate normal
s/p transfusion 2 units given and hbg 7.1 today
cont to trend hbg may need additional transfusion
cont PPI
stools brown and heme + but does report recent black stools
no hx EGD or colon in past- Pt now agreeable for GI work up will review timing with Dr. Henry with recent Plavix -- EGD in am vs double for Wednesday
I reviewed with cardiology with also noted acute on chronic HFrEF optimization prior to procedures
K 3.4 cont to correct per medical team
cont to hold Eliquis and Plavix- last dose 11/20, ok to continue ASA
s/p thora 1900ml with improvement in shortness of breath and not enough fluid for para
hep C RNA pending if any active infection as noted + hep C ab
remains on low residue/cardiac diet
Miralax BID with minimal stool since admission
will follow
Assessment / Plan
-
Pt is a 74yo with hx CAD, CHF, prior CABG/stent, NV, PVD, NSVT, atrial tach, PAF/aflutter on Eliquis, COPD, TIA, HTN, hypercholesterolemia, NIDDM, sleep apnea, hep C, ETOH/tobacco abuse brought to ER after found down at home with EKG changes with
concern for STEMI. He was taken to cath labs which did not reveal culprit but noted with new large right pleural effusion and severe anemia. On admission noted with hbg 7.1 with drop to 6.1 after admission with prior hbg 12 range in July 2024.
MCV 105.3 on admission. Pt was noted with several recent admission last few months with CHF and in June also noted with aflutter and Eliquis was added.
-anemia- macrocytic with recent black stools prior to admission
-large right pleural effusion s/p thoracentesis for 1900ml
-elevated troponin on admission with EKG change s/p cath
-hep C ab +
-acute on chronic HFrEF
-hypokalemia/hyponatremia
-PAF with start of Eliquis in June
-PAD/TIA on Plavix
-prior noted abdominal ascites
-hepatic steatosis
other med problems:
-CAD
-COPD
-prior CABG/stent/NV
-PVD with prior bypass
-HTN
-hypercholesterolemia
-NIDDM
-sleep apnea
-ETOH/tobacco abuse
-hx bedbugs
PLAN:
Etiology of anemia unclear-- newly noted after start of Eliquis several months ago but macrocytic
PUD, ectasia, mass vs other
iron studies with some drop in ferritin and iron sat, B12/folate normal
s/p transfusion 2 units given and hbg 7.1 today
cont to trend hbg may need additional transfusion
cont PPI
stools brown and heme + but does report recent black stools
no hx EGD or colon in past- Pt now agreeable for GI work up will review timing with Dr. Henry with recent Plavix -- EGD in am vs double for Wednesday
I reviewed with cardiology with also noted acute on chronic HFrEF optimization prior to procedures
cont to hold Eliquis and Plavix- last dose 11/20, ok to continue ASA
s/p thora 1900ml with improvement in shortness of breath and not enough fluid for para
hep C RNA pending if any active infection as noted + hep C ab
remains on low residue/cardiac diet
Miralax BID with minimal stool since admission
will follow
Subjective
Subjective
Date of Service: November 22, 2024
11/21 brown loose stool, on low residue diet
Objective
Data Reviewed
Laboratory Data:
Laboratory Results
11/22/24 04:34
11/22/24 04:34
Laboratory Results
PT 17.1 Sec (11.4-14.6) H 11/21/24 09:17
INR 1.37 11/21/24 09:17
APTT 25.1 Sec (23.4-35.0) 11/21/24 01:32
Magnesium 1.7 mg/dl (1.6-2.3) 11/22/24 04:34
Total Bilirubin 0.7 mg/dl (0.2-1.3) 11/21/24 01:32
AST 33 U/L (17-59) 11/21/24 01:32
ALT 20 U/L (0-50) 11/21/24 01:32
Alkaline Phosphatase 75 U/L (38-126) 11/21/24 01:32
Vital Signs and I&O:
Vital Signs
Temp Pulse Resp BP Pulse Ox
99.1 F 65 34 104/45 92
11/22/24 07:18 11/22/24 06:07 11/22/24 06:07 11/22/24 06:07 11/22/24 06:07
I&O
11/21/24 11/22/24 11/23/24
06:59 06:59 06:59
Intake Total 250 / 250 1200 / 1200
Output Total 525 / 525 1550 / 1550
Balance -275 / -275 -350 / -350
Physical Exam
Physical Exam
HEENT: Anicteric and Moist mucous membranes
Cardiology: Normal Sinus Rhythm
Pulmonary: Other (decreased bases )
GI: Soft, Non Distended and Non Tender
Extremities: Edema and Other (leg ulcers with dressing in place)
Neuro: Non Focal
--- NOTE | 2024-11-22 08:00 | PTCARENOTE ---
Assumed care of patient at 0645. Assessment completed and documented in shift assessment on worklist.
Patient is AAOx2-3. Impulsive, forgetful and uncooperative at times. Was on 2L NC, increased to 4L NC as patient's SpO2 was mid 80's. Lungs coarse, rhonchi throughout. Shallow, poor effort and tachypneic. Rounded abdomen, + BS with no BM this AM. No
obvious signs of bleeding. Good appetite. L AC IV patent, dressing slightly bloodied (old). Bed Alarm active, patient occasionally gets OOB without calling to void.
[2024-11-22 08:04] LABS: Glucose - Point of Care 135 mg/dl (70-99)
[2024-11-22] MEDS: NOVOLOG FLEXPEN-LOW RESISTANCE SC ×2 (08:15→17:06)
[2024-11-22] MEDS: LOW STRENGTH ASPIRIN 81 MG PO (08:16)
[2024-11-22] MEDS: PACERONE 200 MG PO (08:16)
[2024-11-22] MEDS: PROTONIX IV 40 MG IV ×2 (08:18→19:46)
[2024-11-22] MEDS: MIRALAX PO ×2 (08:18→19:45)
[2024-11-22] MEDS: NSS (PRESERVATIVE FREE) 10 ML IV ×2 (08:18→19:46)
[2024-11-22] MEDS: TOPROL XL PO ×2 (08:24→19:48)
[2024-11-22] MEDS: LASIX IV ×2 (08:24→16:31)
--- NOTE | 2024-11-22 08:34 | VNURNOTE ---
Chart reviewed. Patient is current with [facility] nursing. Will continue to follow hospital course and DC plans.
[2024-11-22] MEDS: KCL 40 MEQ PO (08:39)
[2024-11-22] MEDS: SYMBICORT 80/4.5 MCG INHALER 2 PUFF INH ×2 (08:45→19:39)
[2024-11-22] MEDS: SPIRIVA RESPIMAT 2.5 MCG 2 PUFF INH (08:45)
--- NOTE | 2024-11-22 09:26 | W.PN.CARDCBS ---
Today's Communication / Plan
-
Okay for GI procedure without further testing
Eliquis remains on hold due to bleeding
Continue IV Lasix for acute diastolic CHF
Impression / Plan
-
Lock Installer: Dr Riggs
Impression:
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
Out of hospital STEMI alert 11/21/2024
no evidence of culprit lesion by cardiac cath to explain patient's presentation 11/13/2024
Elevated Troponin
CAD
s/p remote CABG at [facility] with SHEEHAN to LAD
PCI with unclear details at [place]
Acute macrocytic anemia, Hgb on admission 6.1
Melena
Acute on chronic HFpEF
History of CVA 2010
Paroxysmal atrial fibrillation/flutter
Chronic Eliquis OAC
Chronic amiodarone therapy
PAD
s/p right femoral endarterectomy with saphenous vein angioplasty and right femoral to PT bypass 07/1123
chronic Plavix therapy
Poor medical compliance
Osteomyelitis toe
COPD
HTN
HLD
DM2
Ongoing tobacco use
h/o bedbugs 06/17 admission
Pleural effusion
s/p right sided thora for 1.9 L 11/21/24
Dobutamine nuclear stress test 07/29/23 finds large inferior and basal inferior septal infarct without stephanie-infarct ischemia. Baseline LVEF 43%
Echo 07/28/23 finds normal LV size and function with LVEF in the low normal range estimated at 51% with basal to mid inferior wall severe hypokinesis. No significant valvular disease.
Echo 06/12/2024: EF 50%, basal inferior wall hypokinetic on parasternal short axis views, RV mildly dilated, mildly dilated RA, no significant valvular disease noted
Echo 11/13/2024: EF 50%, stage II diastolic dysfunction, trace MR, mild TR with PAP 44 mmHg no
Echocardiogram 11/21/2024: Ejection fraction 50%, basal inferior akinesis, mild TR, PA systolic 44 mmHg, enlarged right ventricle with right ventricular hypokinesis
Plan:
GI continuing workup for cause of severe anemia
Okay for GI procedure without further testing
Remains in sinus rhythm
Continue amiodarone
Eliquis remains on hold with severe anemia
Will continue IV Lasix for acute diastolic CHF
Continue Toprol but lisinopril has been held due to hypotension
Outpatient dose of Plavix is for h/o RLE bypass 07/2023 and will likely discontinue Plavix permanently
HPI: This is a 74-year-old man with multiple medical conditions including coronary artery disease status post distant CABG, who presents with loss of consciousness and lateral ST elevations on initial EKG. Given his history and findings the Cath
Lab was activated for emergent coronary angiography which did not reveal a culprit to explain his presentation. Relevant findings include a new large right pleural effusion and new severe anemia with hemoglobin of 6 from prior baseline of 12. 2
units of blood were ordered. The patient will be admitted to the hospitalist service for further workup and management with cardiology following. Administered 2 units of blood and trend hemoglobin. Further workup to determine cause of anemia.
For now, would hold Eliquis and Plavix while working up cause of anemia.
Resume patient's home diuretic regimen, but hold additional GDMT for now given mild hypotension until hemodynamics allow restart.
Progress Note - Lock Installer
Subjective
Date of Service: November 22, 2024
No complaints
Objective
Labs:
11/22/24 04:34
11/22/24 04:34
Labs
Hgb 7.1 g/dL (13.0-18.0) L 11/22/24 04:34
Hct 23.0 % (39.0-52.0) L 11/22/24 04:34
Plt Count 315 10^3/uL (130-400) 11/22/24 04:34
PT 17.1 Sec (11.4-14.6) H 11/21/24 09:17
INR 1.37 11/21/24 09:17
APTT 25.1 Sec (23.4-35.0) 11/21/24 01:32
Sodium 133 mmol/L (135-145) L 11/22/24 04:34
Potassium 3.4 mmol/L (3.5-5.1) L 11/22/24 04:34
BUN 49 mg/dl (9-20) H 11/22/24 04:34
Creatinine 0.8 mg/dL (0.7-1.3) 11/22/24 04:34
Glucose 130 mg/dl (70-99) H 11/22/24 04:34
Troponins
11/21/24 11/21/24 11/21/24
01:32 15:40 23:07
Troponin I 0.073 H* 0.084 H* 0.086 H*
11/22/24
04:34
Troponin I 0.076 H*
Vital Signs and I&O:
Vital Signs
Temp Pulse Resp BP Pulse Ox
99.1 F 67 18 102/57 97
11/22/24 07:18 11/22/24 08:50 11/22/24 08:50 11/22/24 08:16 11/22/24 08:50
Vital Signs
Temp Pulse Resp BP Pulse Ox
99.1 F 67 18 102/57 97
11/22/24 07:18 11/22/24 08:50 11/22/24 08:50 11/22/24 08:16 11/22/24 08:50
Intake & Output
11/20/24 11/21/24 11/22/24 11/23/24
06:59 06:59 06:59 06:59
Intake Total 250 / 250 1200 / 1200
Output Total 525 / 525 1550 / 1550 250 / 250
Balance -275 / -275 -350 / -350 -250 / -250
Physical Exam
Physical Exam
General: Well developed, well nourished in NAD.
Neck: Supple, no JVD, HJR, carotids +2 B/L, no bruits bilaterally.
Heart: Non displaced PMI, RRR, no murmurs, No S3, S4, no rubs.
Lungs: Scattered rhonchi
Abdomen: Normal bowel sounds, soft, non-tender, non-distended.
Extremities: No clubbing, cyanosis or edema bilaterally.
Neuro: Grossly nonfocal, awake, alert and oriented x3.
--- NOTE | 2024-11-22 10:40 | W.PN.PUL3 ---
Today's Communication / Plan
-
Continue inhalers Symbicort/Spiriva
Nebulizers as needed
BiPAP if tolerated with naps and at bedtime-patient was only able to tolerate 1 hour last night.
IV diuretics
Monitor electrolytes and replete as necessary
Follow H&H
For GI procedure on Wednesday
Assessment
-
74-year-old man with multiple medical problems. Advanced COPD. Chronic hypercapnic and hypoxemic respiratory failure. Coronary artery disease post bypass, peripheral vascular disease, ongoing smoking, alcohol abuse disorder. Admitted through the
emergency room with change in mental status. Alert for possible ST myocardial infarction. Underwent cardiac catheterization that showed nonobstructive coronary artery disease. We were consulted on 11/21/2024 for evaluation of his chronic medical
problems.
Chronic hypercapnic respiratory failure-due to advanced COPD. Not on acute exacerbation.
ABG 11/21/2024: 7.37/86/142
Acute abrupt onset of mental status change-back to baseline
Right pleural effusion: 11/21/2024 status post thoracentesis 1900 cc of clear pleural fluid.
Present since July 2024 based on chest x-ray.
EKG changes initially admitted as ST elevation myocardial infraction alert
Cardiac catheterization 11/21/2024: Nonobstructive coronary artery disease. Elevated LVEDP at 19.
-
# Lung nodule 7.4 mm on CAT scan January 2024-due for repeat CT. Request given 11/16/2024.
#Active tobacco smoker-ongoing
# Advanced COPD due to tobacco use not in an acute exacerbation
Chronic hypoxemic respiratory failure 2-3 L of supplemental oxygen.
On Trelegy
Last seen by Dr. Mckeon 11/16/2024
PFT 2022 - 1.43L 46%
#Paroxysmal A-fib/flutter on Eliquis
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
#CAD s/p CABG
#PAD with Hx of right femoral endarterectomy and femoral bypass
#DM type II (HbA1C: 7.5 on 08/19/2024)
Assessment and plan:
From the pulmonary perspective he does not appear to be in acute exacerbation.
Patient does have chronic bronchitic symptoms/smoker's cough.
His ABG is compensated but with significantly increased pCO2. Baseline. Last ABG 11/21/2024 -7.41/79/109
-
On his recent outpatient follow-up with me 11/16/2024: The plan was to transition him to nebulized therapy with Brovana/Pulmicort and Yupelri.
He has been using Trelegy. Currently on Spiriva and Symbicort while in the hospital.
The plan also was to get a split-night study to start noninvasive mechanical ventilation. It is unclear whether this patient can undergo a polysomnogram with mobility issues, transportation issues etc. I discussed this with the daughter.
Will attempt to get a noninvasive mechanical ventilation prior to discharge, he is at high risk for readmission.
Start BiPAP 08/03 with naps and at bedtime. Patient is not sure whether he is going to tolerate this long-term. He understands that there is high risk of readmission and without noninvasive mechanical ventilation
-
Avoid sedatives
His mental status is back to baseline
TSH was normal
UDS only positive for marijuana.
Alcohol level not detected
-
Right pleural effusion: It has been present since at least July 2024.
7.60 /% mononuclears/total protein 3/LDH 98-suspect pseudo exudate. As the patient has been getting diuretics.
With elevated proBNP suspect volume overload.
Ultrasound of the abdomen 11/21/2024:Does not mention cirrhosis.
Prior CT chest January 2024 showed no evidence for any pulmonary mass on the right. He has a groundglass pulmonary nodule that needs to be followed. He has a request for repeat CT chest given by me to him on 11/16/2024.
Doubt malignant or infectious in etiology-pleural fluid culture negative. Cytology pending.
With increased LVEDP suspect volume overload. proBNP 7000's.
Unable to tolerate Diamox due to sulfa allergy.
Continue Lasix
Follow BMP and electrolytes. Replete as necessary.
-
Macrocytic anemia-possibly related to alcohol. Hemoglobin of 6.1. New development since late last year.
Patient is on Eliquis/Plavix. Currently on hold
Patient to get transfused, will need diuretics post likely.
For endoscopy on Wednesday per GI.
Okay to proceed with GI procedure from the pulmonary perspective. Should monitor mental status closely and BiPAP postprocedure should be used if there is concerns for worsening hypercapnia.
GI following
-
DVT prophylaxis: SCDs for now.
-
Given multiple comorbidities, advanced COPD Dr. Mckeon discussed with daughter on 11/16/2024 about advanced directives. She was close discussed further.
-
Will follow
Subjective Data
-
Date of Service:
Date of Service: November 22, 2024
Chief Complaint: Pulmonary Follow Up (Chronic hypercapnic respiratory failure. Shortness of breath.)
Review of Systems
Cardiopulmonary: Dyspnea, Dyspnea on Exertion, Cough (Chronic) and Sputum Production (Stable chronic)
Objective Data
Data Reviewed
Vital Signs / I&O / Oxygen:
Vital Signs
Temp Pulse Resp BP Pulse Ox
99.1 F 68 16 92/49 99
11/22/24 07:18 11/22/24 10:00 11/22/24 10:00 11/22/24 10:00 11/22/24 10:00
Intake and Output
11/21/24 11/22/24 11/23/24
06:59 06:59 06:59
Intake Total 250 / 250 1200 / 1200
Output Total 525 / 525 1550 / 1550 250 / 250
Balance -275 / -275 -350 / -350 -250 / -250
SaO2 99
Nasal Cannula flow liters per 5
minute
Physical Exam
General: Comfortable
HEENT: Normocephalic
Cardiovascular: S1-S2
Respiratory: Clear and Non-Labored Respirations
GI: Soft and Non Distended
Neurology: Awake, Alert and No Motor Deficits
Skin: Warm
Labs/Micro/Reports
Lab Data
11/22/24 04:34
11/22/24 04:34
Laboratory Results
11/21/24
11:50
pH 7.41
pCO2 79 H*
pO2 109 H
HCO3 50.1 H*
O2 Delivery Level
Microbiology
11/21/24 10:26 Pleural Fluid Gram Stain - Preliminary
--- NOTE | 2024-11-22 10:50 | PN.CDI ---
CDI
- -
CDI:
Physician Documentation Request
Admit Date: 11/21/24 03:18
Dear Doctor Jesse,
Please review the following and provide your response in the progress notes.
The purpose of this query is to ensure the accuracy of the conditions reported for your patient.
Clinical indicators:
PN, 11/21
#Chronic HFrEF with acute exacerbation:
#...-History of ischemic cardiomyopathy
#...-Most recent echo 11/13/2024 showed improved ejection fraction of 50%
#...with stage II diastolic dysfunction
Cardiology, PN, 11/22
#Continue IV Lasix for acute diastolic CHF
#Acute on chronic HFpEF
Please clarify the acuity and specificity of Heart Failure:
Acute on Chronic Diastolic Heart Failure
Acute on Chronic Systolic Heart Failure
Other (please specify)
Use of terms such as suspected, likely, concern for, or probable (associated with a specific diagnosis that is being evaluated, monitored, or treated as if it exists) are acceptable and can be coded in the inpatient setting, when documented at the
time of discharge.
Thank you,
Yoana López RN BSN CCDS
CDI Specialist
Please contact via tiger text
Please use your independent medical judgment in providing your response.
--- NOTE | 2024-11-22 10:58 | PN.CDI ---
CDI
- -
CDI:
Physician Documentation Request
Admit Date: 11/21/24 03:18
Dear Doctor Jesse,
Please review the following and provide your response in the progress notes.
Clinical Indicators:
H+P, 11/21
#ASCVD
#Non-Ischemic Myocardial Injury
#...- Cath results as noted without acute / culprit lesion identified.
PN, 11/21
#Abnormal EKG:
#...-Emergent cardiac cath overnight 11/20-11/21 revealed no obstructive disease
Cardiology PN, 11/22
#Out of hospital STEMI alert 11/21/2024
#...no evidence of culprit lesion by cardiac cath to explain
#...patient's presentation 11/13/2024
#Elevated Troponin
Laboratory Tests
11/21/24 11/21/24 11/21/24
01:32 15:40 23:07
Troponin I 0.073 H* 0.084 H* 0.086 H*
11/22/24
04:34
Troponin I 0.076 H*
Based on the above and your clinical assessment, please clarify in the progress notes, the etiology of the elevated troponin:
Non-Ischemic Myocardial Injury
STEMI
Abnormal lab value, clinically insignificant
Other(please specify)
Use of terms such as suspected, likely, concern for, or probable (associated with a specific diagnosis that is being evaluated, monitored, or treated as if it exists) are acceptable and can be coded in the inpatient setting, when documented at the
time of discharge.
Thank you,
Yoana López RN BSN CCDS
CDI Specialist
please contact via tiger text
Please use your independent medical judgment in providing your response.
[2024-11-22 13:46] LABS: Glucose - Point of Care 230 mg/dl (70-99)
[2024-11-22] MEDS: NOVOLOG FLEXPEN-LOW RESISTANCE 2 UNITS SC (13:54)
--- NOTE | 2024-11-22 15:27 | W.PN.HOSP.TC ---
Today's Communication/Plan
-
Assessment / Plan
Assessment / Plan
Gen-AA, NAD
HEENT-NC, AT, anicteric, clear oral mm
Neck-supple
CV-reg, no M, +S1/S2
Lungs-clear B/L
Abd-soft, NT, ND
Musculoskeletal-no edema, no deformity
Skin-warm and dry
Neuro-grossly non-focal, confused
Psych-anxious, cooperative
Mr. Nelson is a 74y M with PMH significant for severe COPD with chronic hypoxemic and hypercapnic respiratory failure, ASCVD and PA-Fib who presents to ED as STEMI alert after being found unresponsive at home.
Anemia requiring transfusion:
-Baseline hemoglobin appears to be around 12, but was 7.1 at time of admission and later dropped to 6.1 after admission
-Transfused total of 2 units PRBCs so far
-Report of dark stools
-On Eliquis and Plavix at home for A-fib and PAD/TIA, currently holding with last dose taken 11/20
-Continue high-dose PPI
-Hemoccult positive
-GI following, planning endoscopy on Friday 11/24, no further cardiac diagnostics indicated preoperatively
Encephalopathy:
-Likely metabolic due to acute on chronic respiratory failure with hypercarbia, also contributed to by acute anemia requiring transfusions
-Attempt NIPPV at night and with naps as tolerated, only tolerated 1 hour last night
-Continue scheduled inhalers and nebulizers as needed
-Pulmonology following, recommendations appreciated
-Treat anemia as above
Chronic combined systolic and diastolic heart failure with acute exacerbation:
-History of ischemic cardiomyopathy with reduced ejection fraction of 43%
-Most recent echo 11/13/2024 showed improved ejection fraction of 50% with stage II diastolic dysfunction
-Unclear if patient was adherent with his outpatient medication regimen
-Presented with large right pleural effusion
-Continue aggressive diuresis with Lasix 60 mg IV twice daily, monitor I's and O's and daily weights
-Beta-blockade with metoprolol succinate 50 mg twice daily
-Holding home Imdur and lisinopril due to hypotension
Acute on chronic respiratory failure with hypercapnia and hypoxia:
-History of COPD
-Currently appears to be retaining CO2 based on ABG
-Pulmonology following, continue NIPPV at night and with naps as tolerated
-Continue scheduled inhalers and as needed nebulizers
-Patient has sulfa allergy and so not able to tolerate Diamox
Right pleural effusion:
-Large right pleural effusion noted on chest imaging
-Status post right thoracentesis today 11/20 with 1.9 L taken off, clear appearing pleural fluid
-Continue aggressive diuresis
Abnormal EKG:
-Emergent cardiac cath overnight 11/20-11/21 revealed no obstructive disease
-Elevated troponin nonischemic myocardial injury
-Continue aspirin and statin
NIDDM:
-Holding home metformin
-Accu-Cheks with sliding scale as needed
CODE STATUS: Full code
Anticipated Discharge: > 48 hours
Subjective/Interval History
-
Date of Service: November 22, 2024
Patient was seen and examined at bedside this morning. He remains confused although alert and interactive. Appears to be easily redirectable.
Objective Data
-
Labs:
Laboratory Results
11/22/24
04:34
WBC 9.2
Hgb 7.1 L
Hct 23.0 L
Plt Count 315
Sodium 133 L
Potassium 3.4 L
Chloride 82 L
Carbon Dioxide 46 H
BUN 49 H
Creatinine 0.8
Glucose 130 H
Calcium 8.5
Vital Signs:
Vital Signs
Temp Pulse Resp BP Pulse Ox
98.4 F 65 27 96/52 99
11/22/24 12:01 11/22/24 14:00 11/22/24 14:00 11/22/24 14:00 11/22/24 14:00
I&O
11/21/24 11/22/24 11/23/24
06:59 06:59 06:59
Intake Total 250 / 250 1200 / 1200
Output Total 525 / 525 1550 / 1550 500 / 500
Balance -275 / -275 -350 / -350 -500 / -500
Review of Systems
-
History Source: Patient
All other systems: Reviewed and negative
Physical Exam
-
General: No Apparent Distress
--- NOTE | 2024-11-22 16:00 | PTCARENOTE ---
Diuretics held after speaking with covering provider, Jesse WILLIS.
--- NOTE | 2024-11-22 16:00 | WOUNDNOTE ---
LEFT LATERAL LOWER LEG
--- NOTE | 2024-11-22 16:01 | WOUNDNOTE ---
LEFT LATERAL LOWER LEG
--- NOTE | 2024-11-22 16:02 | WOUNDNOTE ---
LEFT LOWER LEG
--- NOTE | 2024-11-22 16:02 | WOUNDNOTE ---
LEFT LOWER LEG
--- NOTE | 2024-11-22 16:07 | WOUNDNOTE ---
[facility] RN note: Patient admitted with encephalopathy
See H&P for complete history.
PMH: ASCVD (CAD, PAD, CVA), HF, Afib, COPD, Hep C, DM-II
Wound Location and type/assessment: Patient admitted with left LE venous wound. Wound has scattered open areas with minimal drainage and white wound base. Patient follow at [facility] and last visit was 11/10. 10/27/2024 KEREN of left LE was
non-compressible. Patient has audible + pedal pulse. Heels and sacrum intact. Heels with callus bilaterally. Patient demonstrated good ability to turn in bed.
Appetite: States fair
Pressure redistribution devices in place: Centrella Max Air, heels off-loaded with pillows under calves.
Plan: Wound care ordered at [facility] continues to be appropriate. Patient agrees with plan. Daughter and RN Mónica updated on plan. Will confirm orders with hospitalist and update nurse. Updated care plan and will follow as needed.
Note to case management of equipment requested for discharge:
Recommend follow up at wound care center upon discharge.
[2024-11-22 17:06] LABS: Glucose - Point of Care 138 mg/dl (70-99)
[2024-11-22] MEDS: LIPITOR 80 MG PO (17:28)
[2024-11-22] MEDS: TYLENOL 650 MG PO (19:49)
[2024-11-22 21:37] LABS: Glucose - Point of Care 321 mg/dl (70-99)
--- NOTE | 2024-11-22 23:39 | PTCARENOTE ---
assumed care of patient. Patient is Aox3 but forgetful. NSR on monitor, 4L NC sating at 98%. Patient has moist cough. Patient using urinal to void. Bed alarm on. Assessment and VS as documented. call liu in reach, care ongoing.
[2024-11-23] VITALS (28 sets, daily range): BP systolic 83–127; BP diastolic 32–97; BMI 25.7
--- NOTE | 2024-11-23 01:49 | PTCARENOTE ---
Patient has low BPs of last three taken were 94/40 map of 57, 111/32 with map of 54 automatic, manual BP taken 92/40. 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 Continuing to monitor closely.
[2024-11-23] MEDS: TYLENOL 650 MG PO (03:43)
[2024-11-23 04:42] LABS: Blood Urea Nitrogen 25 mg/dl (9-20); Calcium 8.4 mg/dl (8.4-10.2); Chloride 91 mmol/L (98-107); Estimated Creatinine Clearance 111 ml/min; Glucose 134 mg/dl (70-99); Potassium 3.8 mmol/L (3.5-5.1); Sodium 133 mmol/L (135-145); eGFR > 60.00
[2024-11-23 05:18] LABS: Carbon Dioxide 45 mmol/L (22-30)
[2024-11-23 06:11] LABS: Hematocrit 21.2 % (39.0-52.0); Hemoglobin 6.1 g/dL (13.0-18.0); Mean Corp Hgb Conc. 28.8 g/dL (33.0-37.0); Mean Corpuscular Hgb 28.1 pg (27.0-31.0); Mean Corpuscular Volume 97.7 fL (80.0-94.0); Mean Platelet Volume 9.8 fL (7.4-10.4); Platelet Count 312 10^3/uL (130-400); Red Blood Cell Count 2.17 10^6/uL (4.70-6.10); Red Cell Dist. Width 16.5 % (11.5-14.5); White Blood Cell Count 10.7 10^3/uL (4.8-10.8)
[2024-11-23 07:52] LABS: Glucose - Point of Care 109 mg/dl (70-99)
[2024-11-23] MEDS: SYMBICORT 80/4.5 MCG INHALER 2 PUFF INH ×2 (07:54→19:20)
[2024-11-23] MEDS: SPIRIVA RESPIMAT 2.5 MCG 2 PUFF INH (07:54)
--- NOTE | 2024-11-23 08:38 | PN.CDI ---
CDI
- -
CDI:
Physician Documentation Request
Admit Date: 11/21/24 03:18
Dear Doctor Lloyd,
Please review the following and provide your response in the progress notes.
Clinical Indicators:
PN, 11/22
#Anemia requiring transfusion:
#...-Baseline hemoglobin appears to be around 12, but was 7.1 at time of admission
#...and later dropped to 6.1 after admission
#...-Transfused total of 2 units PRBCs so far
#...-Report of dark stools
#-On Eliquis and Plavix at home for A-fib and PAD/TIA,
#...currently holding with last dose taken 11/20
#-Hemoccult positive
Laboratory Tests
11/21/24
09:17
PT 17.1 H
Based on the above and your clinical assessment, please clarify the relationship, if any, between these conditions:
Yes, Anemia/Hemoccult positive is enhanced by/associated with/due to Eliquis and/or Plavix.
No, Anemia/Hemoccult positive is not enhanced by/associated with/due to Eliquis and/or Plavix but it is due to ___. (Please specify)
Other (please specify)
Use of terms such as suspected, likely, concern for, or probable (associated with a specific diagnosis that is being evaluated, monitored, or treated as if it exists) are acceptable and can be coded in the inpatient setting, when documented at the
time of discharge.
Thank you,
Yoana López RN BSN CCDS
CDI Specialist
please contact via tiger text
Please use your independent medical judgment in providing your response.
--- NOTE | 2024-11-23 08:46 | PN.CDI ---
CDI
- -
CDI:
Physician Documentation Request
Admit Date: 11/21/24 03:18
Dear Doctor Lloyd,
Please review the following and provide your response in the progress notes.
Clinical Indicators:
GI PN,
#Etiology of anemia unclear-- newly noted after start of Eliquis several months ago
#...but macrocytic
#iron studies with some drop in ferritin and iron sat, B12/folate normal
PN, 11/22
#Anemia requiring transfusion:
#...-Baseline hemoglobin appears to be around 12, but was 7.1 at time of admission
#...and later dropped to 6.1 after admission
#-Transfused total of 2 units PRBCs so far
Based on the above and your clinical assessment, please clarify the most likely type of anemia evaluated, monitored and/or treated?
Acute blood loss anemia
Acute blood loss anemia with baseline chronic anemia (Specify type)
Anemia of chronic disease - indicate if neoplastic disease, CKD or other
Chronic iron deficiency anemia due to blood loss
Other(please specify)
Use of terms such as suspected, likely, concern for, or probable (associated with a specific diagnosis that is being evaluated, monitored, or treated as if it exists) are acceptable and can be coded in the inpatient setting, when documented at the
time of discharge.
Thank you,
Yoana López RN BSN CCDS
CDI Specialist
please contact via tiger text
Please use your independent medical judgment in providing your response.
[2024-11-23] MEDS: NOVOLOG FLEXPEN-LOW RESISTANCE SC (08:55)
[2024-11-23] MEDS: MIRALAX 17 GRAMS PO (09:02)
[2024-11-23] MEDS: LASIX 60 MG IV (09:03)
[2024-11-23] MEDS: LOW STRENGTH ASPIRIN 81 MG PO (09:06)
[2024-11-23] MEDS: PACERONE 200 MG PO (09:06)
[2024-11-23] MEDS: NSS (PRESERVATIVE FREE) 10 ML IV ×2 (09:07→19:42)
[2024-11-23] MEDS: PROTONIX IV 40 MG IV ×2 (09:07→19:42)
[2024-11-23] MEDS: TOPROL XL 50 MG PO ×2 (09:07→19:42)
--- NOTE | 2024-11-23 09:18 | W.PN.GI.CBS2 ---
Addendum entered and electronically signed by Torey Henry DO 11/23/24 15:37:
I saw and examined the patient.
The OPERATIONS AND INTELLIGENCE ASSISTANT's note was reviewed and I agree with the note.
Comment: Agree with the clearly detailed note as below. Etiology of occult GI bleed is unclear. No prior hx of GI bleeding in the past and no prior EGD/colonoscopy. Found to have heme (+) stools on admission in the ED given his anemia without any
overt melena or maroon colored stools. Upon review of his prior Hgb, he has had a slight drift from baseline of 14s to 12s on 07/2024 where he was started on oral iron supplementation during a prior hospitalization back on 07/2024. He presented with
a Hgb 7.1 -> 6.1 with heme (+) brown stool. He does note previous concern for melena due to his 'jet black stools' a few weeks prior to his hospitalization but has not had any evidence of melena while he has been hospitalized. He is on
eliquis/plavix which have been currently held (last dose on 11/20- ). Doubt brisk UGIB (ie PUD) based on his presentation and hemoccult (+) brown stools. He is currently being transfused an additional 1 uPRBC this afternoon given Hgb 7s -> 6s (s/p 3
uPRBCs since his hospitalization). Concern for oozing gastroduodenal AVMs given his multiple risk factors versus malignancy given his marked AL (prior iron sat 12% and ferritin 21) and no prior EGD/Colon. Would benefit from bi-directional endoscopy
for further evaluation of his heme (+) stools and anemia. Plan for both an EGD/Colonoscopy tomorrow, 11/24/24, which would allow an additional day for washout of plavix if endoscopic therapy (ie APC and/or bicap) were to be needed. Keep NPOat MN. In
the meantime, would continue to trend serial Hgb with ongoing blood transfusions prior to endoscopy along with IV PPI BiD. Additionally, pending HCV RNA given previous concern for prior (+) HCV Ab. See rest of care as outlined below.
GI will continue to follow.
Original Note:
Today's Communication / Plan
-
Etiology of anemia unclear-- newly noted after start of Eliquis several months ago but macrocytic
PUD, ectasia, mass vs other
iron studies with some drop in ferritin and iron sat, B12/folate normal
s/p transfusion 2 units given and hbg still dropping to 6.1 today for additional transfusion today
cont to trend hbg and repeat in AM to see if further transfusion needed prior to GI procedures
cont PPI BID
Plan for EGD/colon -- appreciate cards and pulm input with hx cardiac and pulm chronic issues
will give additional Miralax today then colyte prep later with minimal stools since admission
cont to hold Eliquis and Plavix- last dose 11/20, ok to continue ASA
s/p thora 1900ml with improvement in shortness of breath and not enough fluid for para
hep C RNA pending if any active infection as noted + hep C ab
cont clear diet
will follow
Assessment / Plan
-
Pt is a 74yo with hx CAD, CHF, prior CABG/stent, ID, PVD, NSVT, atrial tach, PAF/aflutter on Eliquis, COPD, TIA, HTN, hypercholesterolemia, NIDDM, sleep apnea, hep C, ETOH/tobacco abuse brought to ER after found down at home with EKG changes with
concern for STEMI. He was taken to cath labs which did not reveal culprit but noted with new large right pleural effusion and severe anemia. On admission noted with hbg 7.1 with drop to 6.1 after admission with prior hbg 12 range in July 2024.
MCV 105.3 on admission. Pt was noted with several recent [facility] admission last few months with CHF and in June also noted with aflutter and Eliquis was added.
-anemia- macrocytic with recent black stools prior to admission
-large right pleural effusion s/p thoracentesis for 1900ml
-elevated troponin on admission with EKG change s/p cath
-hep C ab +
-acute on chronic HFrEF
-hypokalemia/hyponatremia
-PAF with start of Eliquis in June
-PAD/TIA on Plavix
-prior noted abdominal ascites
-hepatic steatosis
other med problems:
-CAD
-COPD
-prior CABG/stent/ID
-PVD with prior bypass
-HTN
-hypercholesterolemia
-NIDDM
-sleep apnea
-ETOH/tobacco abuse
-hx bedbugs
PLAN:
Etiology of anemia unclear-- newly noted after start of Eliquis several months ago but macrocytic
PUD, ectasia, mass vs other
iron studies with some drop in ferritin and iron sat, B12/folate normal
s/p transfusion 2 units given and hbg still dropping to 6.1 today for additional transfusion today
cont to trend hbg and repeat in AM to see if further transfusion needed prior to GI procedures
cont PPI BID
Plan for EGD/colon -- appreciate cards and pulm input with hx cardiac and pulm chronic issues
will give additional Miralax today then colyte prep later with minimal stools since admission
cont to hold Eliquis and Plavix- last dose 11/20, ok to continue ASA
s/p thora 1900ml with improvement in shortness of breath and not enough fluid for para
hep C RNA pending if any active infection as noted + hep C ab
cont clear diet
will follow
Subjective
Subjective
Date of Service: November 23, 2024
still drop in hbg 11/21 brown stool now on clear diet
Objective
Data Reviewed
Laboratory Data:
Laboratory Results
11/23/24 03:52
11/23/24 03:52
Laboratory Results
PT 17.1 Sec (11.4-14.6) H 11/21/24 09:17
INR 1.37 11/21/24 09:17
APTT 25.1 Sec (23.4-35.0) 11/21/24 01:32
Magnesium 1.7 mg/dl (1.6-2.3) 11/22/24 04:34
Total Bilirubin 0.7 mg/dl (0.2-1.3) 11/21/24 01:32
AST 33 U/L (17-59) 11/21/24 01:32
ALT 20 U/L (0-50) 11/21/24 01:32
Alkaline Phosphatase 75 U/L (38-126) 11/21/24 01:32
Vital Signs and I&O:
Vital Signs
Temp Pulse Resp BP Pulse Ox
97.9 F 82 27 103/46 93
11/23/24 09:02 11/23/24 09:02 11/23/24 09:02 11/23/24 09:02 11/23/24 09:02
I&O
11/22/24 11/23/24 11/24/24
06:59 06:59 06:59
Intake Total 1200 / 1200 0 / 0
Output Total 1550 / 1550 1275 / 1275
Balance -350 / -350 -1275 / -1275 0 / 0
Physical Exam
Physical Exam
HEENT: Anicteric and Moist mucous membranes
Cardiology: Normal Sinus Rhythm
Pulmonary: Other (decreased bases )
GI: Soft, Non Distended and Non Tender
Extremities: Edema (mild with some chronic LE wounds )
Neuro: Non Focal
--- NOTE | 2024-11-23 09:50 | W.PN.PUL3 ---
Today's Communication / Plan
-
BiPAP usage at night and with naps encourage.
Closer to discharge we will attempt to get noninvasive mechanical ventilation
Continue inhalers
No indication for systemic corticosteroids
Limit sedatives
Anemia workup ongoing
Continue IV diuresis
Will follow
Assessment
-
74-year-old man with multiple medical problems. Advanced COPD. Chronic hypercapnic and hypoxemic respiratory failure. Coronary artery disease post bypass, peripheral vascular disease, ongoing smoking, alcohol abuse disorder. Admitted through the
emergency room with change in mental status. Alert for possible ST myocardial infarction. Underwent cardiac catheterization that showed nonobstructive coronary artery disease. We were consulted on 11/21/2024 for evaluation of his chronic medical
problems.
Chronic hypercapnic respiratory failure-due to advanced COPD. Not on acute exacerbation.
ABG 11/21/2024: 7.37/86/142
Acute abrupt onset of mental status change-back to baseline
Right pleural effusion: 11/21/2024 status post thoracentesis 1900 cc of clear pleural fluid.
Present since July 2024 based on chest x-ray.
EKG changes initially admitted as ST elevation myocardial infraction alert
Cardiac catheterization 11/21/2024: Nonobstructive coronary artery disease. Elevated LVEDP at 19.
-
# Lung nodule 7.4 mm on CAT scan January 2024-due for repeat CT. Request given 11/16/2024.
#Active tobacco smoker-ongoing
# Advanced COPD due to tobacco use not in an acute exacerbation
Chronic hypoxemic respiratory failure 2-3 L of supplemental oxygen.
On Trelegy
Last seen by Dr. Mckeon 11/16/2024
PFT 2022 - 1.43L 46%
#Paroxysmal A-fib/flutter on Eliquis
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
#CAD s/p CABG
#PAD with Hx of right femoral endarterectomy and femoral bypass
#DM type II (HbA1C: 7.5 on 08/19/2024)
Assessment and plan:
From the pulmonary perspective no change from overnight: 4 L nasal cannula.
Not bronchospastic on exam. No evidence for COPD exacerbation
Patient has chronic bronchitic cough/smoker's cough.
-
ABG is compensated but with significantly increased pCO2. Baseline. Last ABG 11/21/2024 -7.41/79/109
-
On his recent outpatient follow-up with me 11/16/2024: The plan was to transition him to nebulized therapy with Brovana/Pulmicort and Yupelri.(This is pending)
He has been using Trelegy. Currently on Spiriva and Symbicort while in the hospital.
-
The plan also was to get a split-night study to start noninvasive mechanical ventilation.
It is unclear whether this patient can undergo a polysomnogram with mobility issues, transportation issues etc. I discussed this with the daughter.
Will attempt to get a noninvasive mechanical ventilation prior to discharge, he is at high risk for readmission.
Start continue BiPAP 15 with naps and at bedtime. Patient is not sure whether he is going to tolerate this long-term. He understands that there is high risk of readmission and without noninvasive mechanical ventilation.
Strongly advised to use as much as possible while asleep.
-
Avoid sedatives
His mental status is back to baseline
TSH was normal
UDS only positive for marijuana.
Alcohol level not detected
-
Right pleural effusion: It has been present since at least July 2024.
pH 7.61/white blood cells 178/88% mononuclears/total protein 3/LDH 98-suspect pseudo exudate. As the patient has been getting diuretics.
With elevated proBNP suspect volume overload.
Ultrasound of the abdomen 11/21/2024:Does not mention cirrhosis or portal hypertension.
-
Prior CT chest January 2024 showed no evidence for any pulmonary mass on the right. He has a groundglass pulmonary nodule that needs to be followed. He has a request for repeat CT chest given by me to him on 11/16/2024.
Doubt malignant or infectious in etiology-pleural fluid culture negative. Cytology pending.
With increased LVEDP suspect volume overload. proBNP 7000's.
Unable to tolerate Diamox due to sulfa allergy.
Continue Lasix
Follow BMP and electrolytes. Replete as necessary-per primary team.
-
Macrocytic anemia-possibly related to alcohol. Hemoglobin of 6.1. New development since late last year on anticoagulation.
Patient is on Eliquis/Plavix. Currently on hold
Transfuse as necessary.
For endoscopy on Wednesday per GI/colon.
Okay to proceed with GI procedure from the pulmonary perspective. Should monitor mental status closely and BiPAP postprocedure should be used if there is concerns for worsening hypercapnia.
GI following
-
DVT prophylaxis: SCDs for now.
-
Dr. Mckeon updated daughter Ariane over the phone 11/23/2024.
Given multiple comorbidities, advanced COPD Dr. Mckeon discussed with daughter on 11/16/2024 about advanced directives. She was close discussed further.
-
Will follow
Subjective Data
-
Date of Service:
Date of Service: November 23, 2024
Chief Complaint: Pulmonary Follow Up (Chronic hypercapnic respiratory failure. Shortness of breath.)
Subjective:
No new overnight events
Patient does not want BiPAP, trying his best
Denies abdominal pain, diarrhea nausea vomiting.
Review of Systems
Cardiopulmonary: Dyspnea on Exertion (Chronic)
GI: Abdominal Pain (n) and Nausea
Objective Data
Data Reviewed
Vital Signs / I&O / Oxygen:
Vital Signs
Temp Pulse Resp BP Pulse Ox
97.9 F 82 27 103/46 93
11/23/24 09:02 11/23/24 09:02 11/23/24 09:02 11/23/24 09:02 11/23/24 09:02
Intake and Output
11/22/24 11/23/24 11/24/24
06:59 06:59 06:59
Intake Total 1200 / 1200 720 / 720
Output Total 1550 / 1550 1275 / 1275
Balance -350 / -350 -1275 / -1275 720 / 720
SaO2 93
Nasal Cannula flow liters per 4
minute
Physical Exam
General: Comfortable
HEENT: Normocephalic
Cardiovascular: S1-S2
Respiratory: Clear and Non-Labored Respirations
GI: Soft and Non Distended
Neurology: Awake, Alert and No Motor Deficits
Skin: Warm
Labs/Micro/Reports
Lab Data
11/23/24 03:52
Microbiology
11/21/24 10:26 Pleural Fluid Body Fluid Culture - Preliminary
No Growth After 18-24 Hours
11/21/24 10:26 Pleural Fluid Gram Stain - Preliminary
[2024-11-23 12:04] LABS: Glucose - Point of Care 248 mg/dl (70-99)
[2024-11-23] MEDS: NOVOLOG FLEXPEN-LOW RESISTANCE 2 UNITS SC (12:16)
[2024-11-23] MEDS: MIRALAX 51 GRAMS PO (12:17)
--- NOTE | 2024-11-23 12:45 | PTCARENOTE ---
Assumed care of patient at 0700. VSS. NSR on telemetry. SaO2 stable on 4L. Frequently forgetful to detail, needs many reminders regarding plan of care. Wound care done as ordered. Currently appears comfortable, chatting w/ visitor.
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
--- NOTE | 2024-11-23 14:12 | W.PN.HOSP.TC ---
Addendum entered and electronically signed by Dhruv Molina DO 11/23/24 14:36:
Anemia is acute blood loss anemia secondary to GI bleeding, please worsened by Eliquis and Plavix use.
Original Note:
Today's Communication/Plan
-
Assessment / Plan
Assessment / Plan
Gen-AA, NAD
HEENT-NC, AT, anicteric, clear oral mm
Neck-supple
CV-reg, no M, +S1/S2
Lungs-clear B/L
Abd-soft, NT, ND
Musculoskeletal-no edema, no deformity
Skin-warm and dry
Neuro-grossly non-focal, confused
Psych-calm, cooperative
Mr. Nelson is a 74y M with PMH significant for severe COPD with chronic hypoxemic and hypercapnic respiratory failure, ASCVD and PA-Fib who presents to ED as STEMI alert after being found unresponsive at home. Emergently cath with no
identifiable obstructive disease identified. Was found to be severely anemic and started with blood transfusion. Admitted for further evaluation and management.
Anemia requiring transfusion:
-Baseline hemoglobin appears to be around 12, but was 7.1 at time of admission and later dropped to 6.1 after admission, transfused 2 units PRBCs initially
-Hemoglobin again 6.1 this morning and so transfusing another units PRBCs (3 units total this admission)
-Report of dark stools so suspect GI bleed
-On Eliquis and Plavix at home for A-fib and PAD/TIA, currently holding with last dose taken 11/20
-Continue high-dose PPI
-GI following, planning endoscopy on Friday 11/24, no further cardiac diagnostics indicated preoperatively
Encephalopathy:
-Improved, likely metabolic due to acute on chronic respiratory failure with hypercarbia, also contributed to by acute anemia requiring transfusions
-Continue NIPPV at night and with naps as tolerated
-Continue scheduled inhalers and nebulizers as needed
-Pulmonology following, recommendations appreciated
-Treat anemia as above
Chronic combined systolic and diastolic heart failure with acute exacerbation:
-History of ischemic cardiomyopathy with reduced ejection fraction of 43%
-Most recent echo 11/13/2024 showed improved ejection fraction of 50% with stage II diastolic dysfunction
-Unclear if patient was adherent with his outpatient medication regimen
-Presented with large right pleural effusion
-Continue aggressive diuresis with Lasix 60 mg IV twice daily, monitor I's and O's and daily weights
-Beta-blockade with metoprolol succinate 50 mg twice daily
-Holding home Imdur and lisinopril due to hypotension
Acute on chronic respiratory failure with hypercapnia and hypoxia:
-History of COPD
-Currently appears to be retaining CO2 based on ABG
-Pulmonology following, continue NIPPV at night and with naps as tolerated
-Continue scheduled inhalers and as needed nebulizers
-Patient has sulfa allergy and so not able to tolerate Diamox
Right pleural effusion:
-Large right pleural effusion noted on chest imaging
-Status post right thoracentesis today 11/20 with 1.9 L taken off, clear appearing pleural fluid
-Continue aggressive diuresis
Abnormal EKG:
-Emergent cardiac cath overnight 11/20-11/21 revealed no obstructive disease
-Elevated troponin nonischemic myocardial injury
-Continue aspirin and statin
NIDDM:
-Holding home metformin
-Accu-Cheks with sliding scale as needed
CODE STATUS: Full code
Anticipated Discharge: > 48 hours
Subjective/Interval History
-
Date of Service: November 23, 2024
Patient was seen and examined at bedside this morning. No acute distress. Receiving another blood transfusion. He is anxiously awaiting endoscopy to find the source of bleeding.
Objective Data
-
Labs:
Laboratory Results
11/23/24 11/23/24
03:52 16:00
WBC 10.7
Hgb 6.1 L* Pending
Hct 21.2 L Pending
Plt Count 312
Sodium 133 L
Potassium 3.8
Chloride 91 L
Carbon Dioxide 45 H
BUN 25 H
Creatinine 0.6 L
Glucose 134 H
Calcium 8.4
Vital Signs:
Vital Signs
Temp Pulse Resp BP Pulse Ox
98.1 F 69 32 96/49 93
11/23/24 12:06 11/23/24 12:06 11/23/24 12:06 11/23/24 12:06 11/23/24 09:02
I&O
11/22/24 11/23/24 11/24/24
06:59 06:59 06:59
Intake Total 1200 / 1200 970 / 970
Output Total 1550 / 1550 1275 / 1275 1500 / 1500
Balance -350 / -350 -1275 / -1275 -530 / -530
Review of Systems
-
History Source: Patient
All other systems: Reviewed and negative
Physical Exam
-
General: No Apparent Distress
--- NOTE | 2024-11-23 15:22 | W.PN.UPDATE ---
Update Note
Progress Note Update
daughter updated on GI plan
[2024-11-23 15:59] LABS: Hematocrit 23.9 % (39.0-52.0); Hemoglobin 7.1 g/dL (13.0-18.0)
--- NOTE | 2024-11-23 16:15 | PTCARENOTE ---
Dr. Molina aware BP 94/50(65), recommends holding scheduled lasix at this time.
[2024-11-23] MEDS: LASIX IV (16:17)
[2024-11-23] MEDS: NULYTELY SOLUTION 4 LITERS PO (17:26)
[2024-11-23] MEDS: NOVOLOG FLEXPEN-LOW RESISTANCE 1 UNITS SC (17:38)
[2024-11-23] MEDS: LIPITOR 80 MG PO (17:39)
[2024-11-23 17:47] LABS: Glucose - Point of Care 158 mg/dl (70-99)
--- NOTE | 2024-11-23 21:37 | PTCARENOTE ---
Patient is Aox3 but very forgetful. Patient currently doing bowl prep for procedure tomorrow. Multiple liquid black stools. NSR on monitor. 4L NC sating at 94%. Patient has been removing oxygen and desating into 70s. Educated patient on use of
oxygen and importance. Patient is anxious due to bowl prep but tolerating well. Assessment and VS as documented. Call liu in reach.
[2024-11-23 21:52] LABS: HCV Quant by NAAT IU/mL Not Detected; HCV Quant by NAAT Interp Not Detected (Not Detected); HCV Quant by NAAT Log IU/mL Not Detected log IU/mL
[2024-11-23 22:01] LABS: Glucose - Point of Care 98 mg/dl (70-99)
[2024-11-24] VITALS (21 sets, daily range): BP systolic 88–146; BP diastolic 37–113; PULSE 72–74; O2SAT 97–98; BMI 25.9
[2024-11-24] MEDS: TYLENOL 650 MG PO (00:12)
[2024-11-24 03:54] LABS: Mean Corp Hgb Conc. 29.6 g/dL (33.0-37.0); Mean Corpuscular Hgb 28.7 pg (27.0-31.0); Mean Corpuscular Volume 96.8 fL (80.0-94.0); Platelet Count 295 10^3/uL (130-400); Red Blood Cell Count 2.79 10^6/uL (4.70-6.10); Red Cell Dist. Width 17.1 % (11.5-14.5); White Blood Cell Count 9.7 10^3/uL (4.8-10.8)
[2024-11-24 04:20] LABS: Blood Urea Nitrogen 12 mg/dl (9-20); Calcium 7.8 mg/dl (8.4-10.2); Chloride 85 mmol/L (98-107); Estimated Creatinine Clearance 95 ml/min; Glucose 125 mg/dl (70-99); Potassium 4.2 mmol/L (3.5-5.1); Sodium 134 mmol/L (135-145); eGFR > 60.00
[2024-11-24 05:06] LABS: Carbon Dioxide 46 mmol/L (22-30)
[2024-11-24] MEDS: VENTOLIN NEBULES 2.5 MG INH ×2 (06:57→20:00)
[2024-11-24] MEDS: SPIRIVA RESPIMAT 2.5 MCG 2 PUFF INH (06:57)
[2024-11-24] MEDS: SYMBICORT 80/4.5 MCG INHALER 2 PUFF INH ×2 (06:57→19:58)
[2024-11-24] MEDS: PROTONIX IV 40 MG IV (08:10)
[2024-11-24] MEDS: LASIX 60 MG IV ×2 (08:11→17:51)
[2024-11-24] MEDS: PACERONE 200 MG PO (08:15)
[2024-11-24] MEDS: LOW STRENGTH ASPIRIN 81 MG PO (08:36)
[2024-11-24] MEDS: TOPROL XL PO (08:38)
[2024-11-24] MEDS: NSS (PRESERVATIVE FREE) 10 ML IV (08:39)
[2024-11-24] MEDS: NOVOLOG FLEXPEN-LOW RESISTANCE SC (09:20)
--- NOTE | 2024-11-24 09:46 | W.PN.PUL3 ---
Today's Communication / Plan
-
Continue BiPAP as the patient allows 15/5 with naps and at bedtime
Discussed with case management regarding possible set up as noninvasive mechanical ventilation either BiPAP or NIV. This will be set up prior to discharge
Diuretics
GI workup
Continue inhalers
Wean off oxygen
Home oxygen assessment prior addition.
Assessment
-
74-year-old man with multiple medical problems. Advanced COPD. Chronic hypercapnic and hypoxemic respiratory failure. Coronary artery disease post bypass, peripheral vascular disease, ongoing smoking, alcohol abuse disorder. Admitted through the
emergency room with change in mental status. Alert for possible ST myocardial infarction. Underwent cardiac catheterization that showed nonobstructive coronary artery disease. We were consulted on 11/21/2024 for evaluation of his chronic medical
problems.
Chronic hypercapnic respiratory failure-due to advanced COPD. Not on acute exacerbation.
ABG 11/21/2024: 7.37/86/142
Acute abrupt onset of mental status change-back to baseline
Right pleural effusion: 11/21/2024 status post thoracentesis 1900 cc of clear pleural fluid.
Present since July 2024 based on chest x-ray.
EKG changes initially admitted as ST elevation myocardial infraction alert
Cardiac catheterization 11/21/2024: Nonobstructive coronary artery disease. Elevated LVEDP at 19.
-
# Lung nodule 7.4 mm on CAT scan January 2024-due for repeat CT. Request given 11/16/2024.
#Active tobacco smoker-ongoing
# Advanced COPD due to tobacco use not in an acute exacerbation
Chronic hypoxemic respiratory failure 2-3 L of supplemental oxygen.
On Trelegy
Last seen by Dr. Mckeon 11/16/2024
PFT 2022 - 1.43L 46%
#Paroxysmal A-fib/flutter on Eliquis
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
#CAD s/p CABG
#PAD with Hx of right femoral endarterectomy and femoral bypass
#DM type II (HbA1C: 7.5 on 08/19/2024)
Assessment and plan:
Remains on low rate supplemental oxygen 4 L.( usually on 2-3L at home)
No change from overnight.
Not bronchospastic on exam. No evidence for COPD exacerbation
Patient has chronic bronchitic cough/smoker's cough.
ABG is compensated but with significantly increased pCO2. Baseline. Last ABG 11/21/2024 -7.41/79/109
-
On his recent outpatient follow-up with me 11/16/2024: The plan was to transition him to nebulized therapy with Brovana/Pulmicort and Yupelri.(This is pending)
He has been using Trelegy. Currently on Spiriva and Symbicort while in the hospital.
-
Chronic hypercapnic respiratory failure/possible obstructive sleep apnea:
Avoid sedatives
His mental status is back to baseline
TSH was normal
UDS only positive for marijuana.
Alcohol level not detected
-
The plan also was to get a split-night study to start noninvasive mechanical ventilation.
It is unclear whether this patient can undergo a polysomnogram with mobility issues, transportation issues etc. I discussed this with the daughter.
Will attempt to get a noninvasive mechanical ventilation prior to discharge, he is at high risk for readmission. Will discuss with porter sample case 11/24/2024 to start the process. Not ready for discharge yet
Continue BiPAP 15/5 with naps and at bedtime.
Patient is not sure whether he is going to tolerate this long-term. He understands that there is high risk of readmission and without noninvasive mechanical ventilation.
Strongly advised to use as much as possible while asleep.
Dr. Mckeon discussed with patient in detail and discussed again the risk of not using NIV on 11/24/2024. He was okay to set it up. Daughter Ariane who is the main caregiver also indicated that she is interested to set it up.
High risk for readmission without noninvasive mechanical ventilation.
Discussed with CM and will start process.
--
Right pleural effusion: It has been present since at least July 2024.
pH 7.61/white blood cells 178/88% mononuclears/total protein 3/LDH 98-suspect pseudo exudate. As the patient has been getting diuretics.
With increased LVEDP suspect volume overload. proBNP 7000's.
Ultrasound of the abdomen 11/21/2024:Does not mention cirrhosis or portal hypertension.
-
Prior CT chest January 2024 showed no evidence for any pulmonary mass on the right. He has a groundglass pulmonary nodule that needs to be followed. He has a request for repeat CT chest given by me to him on 11/16/2024.
Doubt malignant or infectious in etiology-pleural fluid culture negative. Cytology pending.
Unable to tolerate Diamox due to sulfa allergy.
Continue Lasix per cardiology and primary team.
Follow BMP and electrolytes. Replete as necessary-per primary team.
-
Macrocytic anemia-possibly related to alcohol. Hemoglobin of 6.1. New development since late last year on anticoagulation.
Patient is on Eliquis/Plavix. Currently on hold
Transfuse as necessary.
For endoscopy on Wednesday per GI/colon.
Okay to proceed with GI procedure from the pulmonary perspective. Should monitor mental status closely and BiPAP postprocedure should be used if there is concerns for worsening hypercapnia.
GI following
-
DVT prophylaxis: SCDs for now.
-
Dr. Mckeon updated daughter Ariane over the phone 11/23/2024.
Given multiple comorbidities, advanced COPD Dr. Mckeon discussed with daughter on 11/16/2024 about advanced directives. She was close discussed further.
Follow-up with Dr. Mckeon as previously scheduled after discharge.
-
Will follow
Subjective Data
-
Date of Service:
Date of Service: November 24, 2024
Chief Complaint: Pulmonary Follow Up (Chronic hypercapnic respiratory failure. Shortness of breath.)
Subjective:
He offers no new complaints.
For EGD today colonoscopy
Denies cough or phlegm production
Review of Systems
Cardiopulmonary: Dyspnea (none at rest), Cough (n) and Sputum Production (n)
GI: Abdominal Pain (n) and Nausea (n)
Objective Data
Data Reviewed
Vital Signs / I&O / Oxygen:
Vital Signs
Temp Pulse Resp BP Pulse Ox
98.2 F 70 20 98/59 99
11/24/24 07:38 11/24/24 08:38 11/24/24 07:02 11/24/24 08:38 11/24/24 07:02
Intake and Output
11/23/24 11/24/24 11/25/24
06:59 06:59 06:59
Intake Total 1220 / 1220
Output Total 1275 / 1275 1900 / 1900 400 / 400
Balance -1275 / -1275 -680 / -680 -400 / -400
SaO2 99
Nasal Cannula flow liters per 4
minute
Physical Exam
General: Comfortable
HEENT: Normocephalic
Cardiovascular: S1-S2
Respiratory: Clear and Non-Labored Respirations
GI: Soft and Non Distended
Neurology: Awake, Alert and No Motor Deficits
Skin: Warm
Labs/Micro/Reports
Lab Data
11/24/24 03:29
11/24/24 03:29
Microbiology
11/21/24 10:26 Pleural Fluid Body Fluid Culture - Preliminary
No Growth After 48 Hours
11/21/24 10:26 Pleural Fluid Gram Stain - Preliminary
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
--- NOTE | 2024-11-24 10:49 | W.PN.UPDATE ---
Update Note
Progress Note Update
This patient is 74-year-old man with end-stage COPD. Multiple admissions to the hospital with shortness of breath and respiratory failure. His most recent pCO2 is 63 on 3 L of oxygen. Patient has to use oxygen continuously.
Has minimal effort dyspnea. Patient is very limited due to his breathing and arthritis. Due to his COPD and hypoventilation, patient have risk of worsening chronic respiratory failure. I have considered bilevel, bilevel ST and bilevel VAPS
therapy and they all have been ruled out due to patient's worsening condition. The patient now requires a unique mode of ventilation not offered unless costly options. The patient requires a device that we will not fail in the event of a power
failure and is also portable for mobility within the home when needed. Due to the patient's worsening condition, I am prescribing noninvasive ventilation therapy to decrease the chance of continued unplanned expensive medical encounters including
physician office visits, emergency/urgent care treatment and hospital admissions.
--- NOTE | 2024-11-24 11:10 | PTCARENOTE ---
Nupur Doll INPATIENT PHARMACIST made aware that after 1st enema, patients BMs are clear/yellow. Per Nupur, do not complete 2nd enema. Care ongoing.
[2024-11-24 11:15] LABS: Glucose - Point of Care 135 mg/dl (70-99)
--- NOTE | 2024-11-24 12:28 | PTCARENOTE ---
Patient transferred to GI lab via stretcher by transport for endoscopy and colonoscopy.
[2024-11-24] MEDS: FERRLECIT 110 MG IV (14:49)
--- NOTE | 2024-11-24 14:56 | PTCARENOTE ---
Patient arrived back to IMU from GI lab. Patient stood and pivoted back to bed. Patient on 4L NC. Patients family at bedside.
--- NOTE | 2024-11-24 15:25 | PTCARENOTE ---
Patient AOx3. Patient is forgetful and agitated. MSAS completed per order. Bed alarm on and audible. Patient on 4L NC. NSR on monitor. Diarrhea due to bowel prep and enema prior to colonoscopy. Patient utilizes urinal with yellow urine. Patient
tolerating cholesterol lowering diet. Assist x1. L leg edi wrap. Call liu within reach, bed in lowest position, and bed of wheels locked. Patients family at bedside.
[2024-11-24] MEDS: NOVOLOG FLEXPEN-LOW RESISTANCE 1 UNITS SC (16:17)
[2024-11-24 16:28] LABS: Glucose - Point of Care 189 mg/dl (70-99)
--- NOTE | 2024-11-24 17:23 | W.PN.HOSP.TC ---
Today's Communication/Plan
-
Assessment / Plan
Assessment / Plan
Gen-AA, NAD
HEENT-NC, AT, anicteric, clear oral mm
Neck-supple
CV-reg, no M, +S1/S2
Lungs-clear B/L
Abd-soft, NT, ND
Musculoskeletal-no edema, no deformity
Skin-warm and dry
Neuro-grossly non-focal, confused
Psych-calm, cooperative
Mr. Nelson is a 74y M with PMH significant for severe COPD with chronic hypoxemic and hypercapnic respiratory failure, ASCVD and PA-Fib who presents to ED as STEMI alert after being found unresponsive at home. Emergently cath with no
identifiable obstructive disease identified. Was found to be severely anemic and started with blood transfusion. Admitted for further evaluation and management.
Anemia requiring transfusion:
-Transfused another unit PRBCs last night 11/23 for total of 4 units PRBCs transfused this admission
-Baseline hemoglobin appears to be around 12, but dropped to 6.1 after admission, transfused 2 units PRBCs initially
-Report of dark stools so suspect GI bleed
-On Eliquis and Plavix at home for A-fib and PAD/TIA, currently holding with last dose taken 11/20
-Continue high-dose PPI
-GI following, planning endoscopy on today 11/24, no further cardiac diagnostics indicated preoperatively
Encephalopathy:
-Resolved, likely metabolic due to acute on chronic respiratory failure with hypercarbia, also contributed to by acute anemia requiring transfusions
-Continue NIPPV at night and with naps as tolerated, will need to continue after discharge
-Continue scheduled inhalers and nebulizers as needed
-Pulmonology following, recommendations appreciated
-Treat anemia as above
Chronic combined systolic and diastolic heart failure with acute exacerbation:
-History of ischemic cardiomyopathy with reduced ejection fraction of 43%
-Most recent echo 11/13/2024 showed improved ejection fraction of 50% with stage II diastolic dysfunction
-Unclear if patient was adherent with his outpatient medication regimen
-Presented with large right pleural effusion
-Continue aggressive diuresis with Lasix 60 mg IV twice daily, as blood pressure tolerates monitor I's and O's and daily weights
-Beta-blockade with metoprolol succinate 50 mg twice daily as blood pressure tolerates
-Holding home Imdur and lisinopril due to hypotension
Acute on chronic respiratory failure with hypercapnia and hypoxia:
-History of COPD
-Initially appeared to be retaining CO2 based on ABG, now much improved
-Pulmonology following, continue NIPPV at night and with naps as tolerated, continue after discharge
-Continue scheduled inhalers and as needed nebulizers
-Patient has sulfa allergy and so not able to tolerate Diamox
Right pleural effusion:
-Large right pleural effusion noted on chest imaging
-Status post right thoracentesis 11/20 with 1.9 L taken off, clear appearing pleural fluid
-Continue aggressive diuresis
Abnormal EKG:
-Emergent cardiac cath overnight 11/20-11/21 revealed no obstructive disease
-Elevated troponin nonischemic myocardial injury
-Continue aspirin and statin
NIDDM:
-Holding home metformin
-Accu-Cheks with sliding scale as needed
CODE STATUS: Full code
Anticipated Discharge: > 48 hours
Subjective/Interval History
-
Date of Service: November 24, 2024
Patient was seen and examined at bedside this morning. Comfortable. Awaiting upper and lower endoscopy today.
Objective Data
-
Vital Signs:
Vital Signs
Temp Pulse Resp BP Pulse Ox
97.6 F 68 22 110/52 97
11/24/24 15:35 11/24/24 16:00 11/24/24 16:00 11/24/24 14:15 11/24/24 16:00
I&O
11/23/24 11/24/24 11/25/24
06:59 06:59 06:59
Intake Total 1220 / 1220 480 / 480
Output Total 1275 / 1275 1900 / 1900 1650 / 1650
Balance -1275 / -1275 -680 / -680 -1170 / -1170
Review of Systems
-
History Source: Patient
All other systems: Reviewed and negative
Physical Exam
-
General: No Apparent Distress
[2024-11-24] MEDS: LIPITOR 80 MG PO (17:24)
[2024-11-24 21:37] LABS: Glucose - Point of Care 179 mg/dl (70-99)
[2024-11-24] MEDS: TOPROL XL 50 MG PO (22:03)
[2024-11-25] VITALS (10 sets, daily range): BP systolic 91–152; BP diastolic 40–75; BMI 26.1
[2024-11-25] MEDS: MELATONIN 5 MG PO (00:58)
--- NOTE | 2024-11-25 02:21 | PTCARENOTE ---
Addendum entered by Stephanie Cervantes RN 11/25/24 03:11:
Pt sacrum is reddened but blanchable, with some skin breakdown. Placed a waffle air cushion under the buttocks and placed a sacral foam. Pt refusing wound care to the left lower leg, will give patient time and will attempt again in AM.
Original Note:
Assumed care for patient overnight, received report from niki GARCIA. Pt is AAOx3, but forgetful at times. Pt is on 4L NC refusing HS BiPAP, pt removing his oxygen multiple times and desats to the mid 70's. Pt becomes increasingly agitated when
re-educated on the importance of keeping his oxygen on. Held off on giving PM dose of metoprolol for an hour due to initial low BP's. NSR on tele. Voiding using the urinal. Assessment and vital signs charted. Call liu is within reach.
[2024-11-25] MEDS: VENTOLIN NEBULES 2.5 MG INH (04:24)
[2024-11-25 06:36] LABS: % Basophils 0.3 % (0-2); % Eosinophils 0.3 % (0-6); % Immature Granulocytes 0.5 % (0-0.5); % Lymphocytes 6.5 % (20.5-51.1); % Monocytes 11.7 % (1.7-9.3); % Neutrophils 80.7 % (42.2-75.2); Absolute Immature Granulocytes 0.1 10^3/uL (0-0.05); Absolute Lymphocytes 0.7 10^3/uL (1.2-3.4); Absolute Monocytes 1.3 10^3/uL (0.1-0.6); Absolute Neutrophils 8.6 10^3/uL (1.4-6.5); Hematocrit 27.6 % (39.0-52.0); Hemoglobin 8.3 g/dL (13.0-18.0); Mean Corp Hgb Conc. 30.1 g/dL (33.0-37.0); Mean Corpuscular Hgb 29.1 pg (27.0-31.0); Mean Corpuscular Volume 96.8 fL (80.0-94.0); Mean Platelet Volume 9.9 fL (7.4-10.4); Nucleated Red Blood Cells % 1.7 % (-); Platelet Count 357 10^3/uL (130-400); Red Blood Cell Count 2.85 10^6/uL (4.70-6.10); Red Cell Dist. Width 15.9 % (11.5-14.5); White Blood Cell Count 10.7 10^3/uL (4.8-10.8)
[2024-11-25 06:40] LABS: Blood Urea Nitrogen 14 mg/dl (9-20); Calcium 8.2 mg/dl (8.4-10.2); Chloride 81 mmol/L (98-107); Estimated Creatinine Clearance 95 ml/min; Glucose 120 mg/dl (70-99); Magnesium 1.5 mg/dl (1.6-2.3); Phosphorus 3.1 mg/dl (2.5-4.5); Potassium 3.5 mmol/L (3.5-5.1); Sodium 130 mmol/L (135-145); eGFR > 60.00
[2024-11-25 07:01] LABS: Carbon Dioxide 40 mmol/L (22-30)
[2024-11-25 07:44] LABS: Glucose - Point of Care 125 mg/dl (70-99)
[2024-11-25] MEDS: LASIX 60 MG IV ×2 (08:07→17:04)
[2024-11-25] MEDS: TOPROL XL 50 MG PO (08:09)
[2024-11-25] MEDS: LOW STRENGTH ASPIRIN 81 MG PO (08:09)
[2024-11-25] MEDS: PROTONIX 40 MG PO (08:09)
[2024-11-25] MEDS: PACERONE 200 MG PO (08:09)
--- NOTE | 2024-11-25 08:09 | W.PN.GI.CBS2 ---
Today's Communication / Plan
-
No additions today.
Will follow-up on his biopsies. GI will sign off please call me if he has any overt bleeding or if you have any questions
Assessment / Plan
-
Pt is a 74yo with hx CAD, CHF, prior CABG/stent, UT, PVD, NSVT, atrial tach, PAF/aflutter on Eliquis, COPD, TIA, HTN, hypercholesterolemia, NIDDM, sleep apnea, hep C, ETOH/tobacco abuse brought to ER after found down at home with EKG changes with
concern for STEMI. He was taken to cath labs which did not reveal culprit but noted with new large right pleural effusion and severe anemia. On admission noted with hbg 7.1 with drop to 6.1 after admission with prior hbg 12 range in July 2024.
MCV 105.3 on admission. Pt was noted with several recent admission last few months with CHF and in June also noted with aflutter and Eliquis was added.
-anemia- macrocytic with recent black stools prior to admission
-large right pleural effusion s/p thoracentesis for 1900ml
-elevated troponin on admission with EKG change s/p cath
-hep C ab +
-acute on chronic HFrEF
-hypokalemia/hyponatremia
-PAF with start of Eliquis in June
-PAD/TIA on Plavix
-prior noted abdominal ascites
-hepatic steatosis
other med problems:
-CAD
-COPD
-prior CABG/stent/UT
-PVD with prior bypass
-HTN
-hypercholesterolemia
-NIDDM
-sleep apnea
-ETOH/tobacco abuse
-hx bedbugs
EGD and colonoscopy with [facility] on 11/24/2024 -patient needed assist bag ventilation throughout the procedures. Would not recommend repeating unless absolutely necessary unless his pulmonary status changes/improves
--The EGD showed a small hiatal hernia and abnormal appearing granular mucosa throughout the stomach that was biopsied. Treated 1 angioectasia with APC in the stomach otherwise normal study -awaiting biopsies
--The colonoscopy showed no explanation for his anemia although 3 adenomatous appearing medium size polyps were removed in case they were the cause of mild oozing while on anticoagulation
PLAN:
Etiology of anemia unclear-- newly noted after start of Eliquis several months ago but macrocytic
iron studies with some drop in ferritin and iron sat, B12/folate normal
s/p transfusion 4 units total since admission 2 on 11/21 and 2 on 11/23. Hemoglobin has been stable since yesterday at 8.3
Started IV iron yesterday for 5 doses
Change to once daily PPI
Currently off anticoagulation and currently only on aspirin. No significant mass was found. More likely multifactorial with chronic disease plus potentially small bowel angioectasias
Will need to hold on anticoagulation for at least 1 more day since I took out 3 polyps then restart if necessary, then will need close monitoring of his blood levels outpatient
-- I discussed all this with his daughter yesterday over the phone -apparently she is just now getting back into his life and his medical issues
-- I also told him if his respiratory status improves or his life expectancy is 10 years plus he would need to repeat the colonoscopy to remove the remaining polyps. If that is the case would set him up with Dr. Bustamante since he had multiple larger
SSA's
s/p thora 1900ml with improvement in shortness of breath and not enough fluid for para
hep C RNA negative. hep C positive antibody indicating he cleared infection
will follow
Subjective
Subjective
Date of Service: November 25, 2024
Feels much better today but said he had a rough night overnight with his breathing. Eating well. No overt bleeding
Objective
Data Reviewed
Laboratory Data:
Laboratory Results
11/25/24 05:57
11/25/24 05:57
Laboratory Results
PT 17.1 Sec (11.4-14.6) H 11/21/24 09:17
INR 1.37 11/21/24 09:17
APTT 25.1 Sec (23.4-35.0) 11/21/24 01:32
Phosphorus 3.1 mg/dl (2.5-4.5) 11/25/24 05:57
Magnesium 1.5 mg/dl (1.6-2.3) L 11/25/24 05:57
Total Bilirubin 0.7 mg/dl (0.2-1.3) 11/21/24 01:32
AST 33 U/L (17-59) 11/21/24 01:32
ALT 20 U/L (0-50) 11/21/24 01:32
Alkaline Phosphatase 75 U/L (38-126) 11/21/24 01:32
Vital Signs and I&O:
Vital Signs
Temp Pulse Resp BP Pulse Ox
97.8 F 80 17 126/52 92
11/25/24 03:06 11/25/24 06:00 11/25/24 06:00 11/25/24 04:00 11/25/24 06:00
I&O
11/24/24 11/25/24 11/26/24
06:59 06:59 06:59
Intake Total 1220 / 1220 480 / 480
Output Total 1900 / 1900 3665 / 3665
Balance -680 / -680 -3185 / -3185
Physical Exam
Physical Exam
HEENT: Anicteric
GI: Soft, Non Distended and Non Tender
Extremities: No Edema
Neuro: Non Focal
[2024-11-25] MEDS: NOVOLOG FLEXPEN-LOW RESISTANCE SC (08:10)
[2024-11-25] MEDS: SPIRIVA RESPIMAT 2.5 MCG 2 PUFF INH (08:46)
[2024-11-25] MEDS: SYMBICORT 80/4.5 MCG INHALER 2 PUFF INH ×2 (08:46→19:30)
--- NOTE | 2024-11-25 12:44 | W.PN.CARDCBS ---
Addendum entered and electronically signed by Elma Rice MD 11/25/24 16:23:
proBNP level remains elevated at 7590. Will resume Lasix.
Original Note:
Today's Communication / Plan
-
Await proBNP
Hold Lasix until labs back
Telemetry with sinus rhythm. Remains on amiodarone. Await okay to resume oral anticoagulation but will need to monitor closely.
Continue GI and supportive care
Continue oxygen
Impression / Plan
-
Quilt Sewer: Dr Riggs
Impression:
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
Out of hospital STEMI alert 11/21/2024
no evidence of culprit lesion by cardiac cath to explain patient's presentation 11/13/2024
Elevated Troponin
CAD
s/p remote CABG at [facility] with SHEEHAN to LAD
PCI with unclear details at [place]
Acute macrocytic anemia, Hgb on admission 6.1
Melena
Acute on chronic HFpEF
History of CVA 2010
Paroxysmal atrial fibrillation/flutter
Chronic Eliquis OAC
Chronic amiodarone therapy
PAD
s/p right femoral endarterectomy with saphenous vein angioplasty and right femoral to PT bypass 07/1123
chronic Plavix therapy
Poor medical compliance
Osteomyelitis toe
COPD
HTN
HLD
DM2
Ongoing tobacco use
h/o bedbugs 06/17 admission
Pleural effusion
s/p right sided thora for 1.9 L 11/21/24
Dobutamine nuclear stress test 07/29/23 finds large inferior and basal inferior septal infarct without stephanie-infarct ischemia. Baseline LVEF 43%
Echo 07/28/23 finds normal LV size and function with LVEF in the low normal range estimated at 51% with basal to mid inferior wall severe hypokinesis. No significant valvular disease.
Echo 06/12/2024: EF 50%, basal inferior wall hypokinetic on parasternal short axis views, RV mildly dilated, mildly dilated RA, no significant valvular disease noted
Echo 11/13/2024: EF 50%, stage II diastolic dysfunction, trace MR, mild TR with PAP 44 mmHg no
Echocardiogram 11/21/2024: Ejection fraction 50%, basal inferior akinesis, mild TR, PA systolic 44 mmHg, enlarged right ventricle with right ventricular hypokinesis
Cardiac catheterization 11/21/2024
LM: Large with mild disease
LAD: Large vessel that is proximally occluded within stent just after the takeoff of a large septal with the mid to distal vessel filled by patent SHEEHAN to LAD.
LCx: Large vessel with mild to moderate nonobstructive disease including a 50% stenosis in the mid body of the OM2
RCA: The proximal to distal vessel contains overlapping stents with mild ISR. There is a small region of haziness in the distal vessel as well as in the bifurcation of the distal RCA and RPDA/RPAV. This like represents eccentric atherosclerotic
plaque. There is DIMITRI-3 flow distally.
BYPASS GRAFT ANGIOGRAPHY:
SHEEHAN-LAD: the SHEEHAN is taken as a pedicle and forms an anastomosis with the mid-LAD.
There are clips on the right side of the aorta possible suggestive of an additional bypass graft. Non selective aortogram was performed and did not demonstrate presence of additional patent grafts.
Plan:
Patient with paroxysmal atrial fibrillation with anticoagulation on hold because of severe GI bleeding requiring transfusion. In addition on presentation patient underwent cardiac catheterization given STEMI alert in the setting of known coronary
artery disease with nonobstructive disease requiring continued medical management.
He has advanced COPDand lung nodule in addition which is being followed by pulmonary.
GI bleed. GI status currently stable. Hemoglobin stable. EGD and colonoscopy 11/24/2024. He required assist bag ventilation throughout the procedures. EGD patient underwent treatment for angioectasia with APC in the stomach. Colonoscopy revealed
3 adenomatous appearing medium size polyps. Await GI instruction regarding anticoagulation according to note perhaps restarting tomorrow with close follow-up.
Remains in sinus rhythm with known paroxysmal atrial fibrillation.
Continue amiodarone.
Eliquis remains on hold with severe anemia and recent active bleeding. Plan as noted.
Telemetry reviewed.
Heart failure with preserved ejection fraction. Decreased sodium. Exam difficult to assess volume status. Will check proBNP. Hold Lasix for now.
Continue Toprol but lisinopril has been held due to hypotension
Blood pressure low but stable.
Outpatient dose of Plavix is for h/o RLE bypass 07/2023 and will likely discontinue Plavix permanently
I spoke with the patient's sister at the bedside. All questions answered.
HPI: This is a 74-year-old man with multiple medical conditions including coronary artery disease status post distant CABG, who presents with loss of consciousness and lateral ST elevations on initial EKG. Given his history and findings the Cath
Lab was activated for emergent coronary angiography which did not reveal a culprit to explain his presentation. Relevant findings include a new large right pleural effusion and new severe anemia with hemoglobin of 6 from prior baseline of 12. 2
units of blood were ordered. The patient will be admitted to the hospitalist service for further workup and management with cardiology following. Administered 2 units of blood and trend hemoglobin. Further workup to determine cause of anemia.
For now, would hold Eliquis and Plavix while working up cause of anemia.
Resume patient's home diuretic regimen, but hold additional GDMT for now given mild hypotension until hemodynamics allow restart.
Progress Note - Quilt Sewer
Subjective
Date of Service: November 25, 2024
He is very sleepy. His sister is at the bedside. He denies chest pain and palpitations
Objective
Labs:
11/25/24 05:57
11/25/24 05:57
Labs
Hgb 8.3 g/dL (13.0-18.0) L 11/25/24 05:57
Hct 27.6 % (39.0-52.0) L 11/25/24 05:57
Plt Count 357 10^3/uL (130-400) D 11/25/24 05:57
PT 17.1 Sec (11.4-14.6) H 11/21/24 09:17
INR 1.37 11/21/24 09:17
APTT 25.1 Sec (23.4-35.0) 11/21/24 01:32
Sodium 130 mmol/L (135-145) L 11/25/24 05:57
Potassium 3.5 mmol/L (3.5-5.1) 11/25/24 05:57
BUN 14 mg/dl (9-20) 11/25/24 05:57
Creatinine 0.7 mg/dL (0.7-1.3) 11/25/24 05:57
Glucose 120 mg/dl (70-99) H 11/25/24 05:57
Vital Signs and I&O:
Vital Signs
Temp Pulse Resp BP Pulse Ox
98.9 F 68 30 95/55 93
11/25/24 11:00 11/25/24 10:00 11/25/24 10:00 11/25/24 10:00 11/25/24 10:00
Vital Signs
Temp Pulse Resp BP Pulse Ox
98.9 F 68 30 95/55 93
11/25/24 11:00 11/25/24 10:00 11/25/24 10:00 11/25/24 10:00 11/25/24 10:00
Intake & Output
11/23/24 11/24/24 11/25/24 11/26/24
06:59 06:59 06:59 06:59
Intake Total 1220 / 1220 480 / 480
Output Total 1275 / 1275 1900 / 1900 3665 / 3665
Balance -1275 / -1275 -680 / -680 -3185 / -3185
Physical Exam
Physical Exam
Chronically ill-appearing man
Heart: Distant heart sounds but regular
Lungs: Coarse breath
Extremities: No clubbing, cyanosis or edema bilaterally.
Neuro: Grossly nonfocal, awake, alert however sleepy
[2024-11-25 13:04] LABS: Glucose - Point of Care 272 mg/dl (70-99)
[2024-11-25] MEDS: NOVOLOG FLEXPEN-LOW RESISTANCE 3 UNITS SC ×2 (13:22→17:07)
[2024-11-25] MEDS: FERRLECIT 110 MG IV (13:32)
[2024-11-25] MEDS: TYLENOL 650 MG PO (14:10)
--- NOTE | 2024-11-25 15:39 | W.PN.HOSP.TC ---
Today's Communication/Plan
-
Assessment / Plan
Assessment / Plan
Gen-AA, NAD
HEENT-NC, AT, anicteric, clear oral mm
Neck-supple
CV-reg, no M, +S1/S2
Lungs-clear B/L
Abd-soft, NT, ND
Musculoskeletal-no edema, no deformity
Skin-warm and dry
Neuro-grossly non-focal, alert and interacting appropriately
Psych-calm, cooperative
Mr. Nelson is a 74y M with PMH significant for severe COPD with chronic hypoxemic and hypercapnic respiratory failure, ASCVD and PA-Fib who presents to ED as STEMI alert after being found unresponsive at home. Emergently cath with no
identifiable obstructive disease identified. Was found to be severely anemic and started with blood transfusion. Admitted for further evaluation and management.
Anemia requiring transfusion:
-Transfused another unit PRBCs 11/23 for total of 4 units PRBCs transfused this admission
-Baseline hemoglobin appears to be around 12, but dropped to 6.1 after admission, transfused 2 units PRBCs initially
-Report of dark stools so suspect GI bleed
-On Eliquis and Plavix at home for A-fib and PAD/TIA, currently holding with last dose taken 11/20
-Continue high-dose PPI
-Status post upper and lower endoscopy 11/24 with finding of gastric angioectasia status post argon plasma coagulation, 3 colon polyps removed
-Continue holding anticoagulation for now, hemoglobin currently stable, can likely restart Eliquis tomorrow /
-Appreciate GI input
Encephalopathy:
-Resolved, likely metabolic due to acute on chronic respiratory failure with hypercarbia, also contributed to by acute anemia requiring transfusions
-Continue NIPPV at night and with naps as tolerated, will need to continue after discharge
-Continue scheduled inhalers and nebulizers as needed
-Pulmonology following, recommendations appreciated
-Treat anemia as above
Chronic combined systolic and diastolic heart failure with acute exacerbation:
-History of ischemic cardiomyopathy with reduced ejection fraction of 43%
-Most recent echo 11/13/2024 showed improved ejection fraction of 50% with stage II diastolic dysfunction
-Unclear if patient was adherent with his outpatient medication regimen
-Presented with large right pleural effusion
-Currently holding Lasix due to hypotension
-Beta-blockade with metoprolol succinate 50 mg twice daily as blood pressure tolerates
-Holding home Imdur and lisinopril due to hypotension
Acute on chronic respiratory failure with hypercapnia and hypoxia:
-History of COPD
-Initially appeared to be retaining CO2 based on ABG, now much improved
-Pulmonology following, continue NIPPV at night and with naps as tolerated, continue after discharge
-Continue scheduled inhalers and as needed nebulizers
-Patient has sulfa allergy and so not able to tolerate Diamox
Right pleural effusion:
-Large right pleural effusion noted on chest imaging
-Status post right thoracentesis 11/20 with 1.9 L taken off, clear appearing pleural fluid
-Continue aggressive diuresis
Abnormal EKG:
-Emergent cardiac cath overnight 11/20-11/21 revealed no obstructive disease
-Elevated troponin nonischemic myocardial injury
-Continue aspirin and statin
NIDDM:
-Holding home metformin
-Accu-Cheks with sliding scale as needed
PAD:
-Stable, history of right lower extremity bypass 08/16 for which he was started on Plavix
-Plavix currently held due to GI bleeding, can likely discontinue Plavix permanently
CODE STATUS: Full code
Anticipated Discharge: 24 - 48 hours
Subjective/Interval History
-
Date of Service: November 25, 2024
Patient was seen and examined at bedside's morning. Feeling well following upper and lower endoscopy yesterday. Hemoglobin stable and continuing to hold anticoagulation.
Objective Data
-
Labs:
Laboratory Results
11/25/24
05:57
WBC 10.7
Hgb 8.3 L
Hct 27.6 L
Plt Count 357 D
Sodium 130 L
Potassium 3.5
Chloride 81 L
Carbon Dioxide 40 H
BUN 14
Creatinine 0.7
Glucose 120 H
Calcium 8.2 L
Vital Signs:
Vital Signs
Temp Pulse Resp BP Pulse Ox
98.9 F 72 22 91/74 97
11/25/24 11:00 11/25/24 14:00 11/25/24 14:00 11/25/24 12:00 11/25/24 12:00
I&O
11/24/24 11/25/24 11/26/24
06:59 06:59 06:59
Intake Total 1220 / 1220 480 / 480
Output Total 1900 / 1900 3665 / 3665
Balance -680 / -680 -3185 / -3185
Review of Systems
-
History Source: Patient
All other systems: Reviewed and negative
Physical Exam
-
General: No Apparent Distress
--- NOTE | 2024-11-25 16:11 | W.PN.PUL3 ---
Today's Communication / Plan
-
Unfortunate, patient continues to refuse BiPAP
Ongoing efforts to set up NIV at home
Continue with airway clearance measures
Amiodarone therapy noted
Assessment
-
74-year-old man with multiple medical problems. Advanced COPD. Chronic hypercapnic and hypoxemic respiratory failure. Coronary artery disease post bypass, peripheral vascular disease, ongoing smoking, alcohol abuse disorder. Admitted through the
emergency room with change in mental status. Alert for possible ST myocardial infarction. Underwent cardiac catheterization that showed nonobstructive coronary artery disease. We were consulted on 11/21/2024 for evaluation of his chronic medical
problems.
Chronic hypercapnic respiratory failure-due to advanced COPD. Not on acute exacerbation.
ABG 11/21/2024: 7.37/86/142
Acute abrupt onset of mental status change-back to baseline
Right pleural effusion: 11/21/2024 status post thoracentesis 1900 cc of clear pleural fluid.
Present since July 2024 based on chest x-ray.
EKG changes initially admitted as ST elevation myocardial infraction alert
Cardiac catheterization 11/21/2024: Nonobstructive coronary artery disease. Elevated LVEDP at 19.
-
# Lung nodule 7.4 mm on CAT scan January 2024-due for repeat CT. Request given 11/16/2024.
#Active tobacco smoker-ongoing
# Advanced COPD due to tobacco use not in an acute exacerbation
Chronic hypoxemic respiratory failure 2-3 L of supplemental oxygen.
On Trelegy
Last seen by Dr. Mckeon 11/16/2024
PFT 2022 - 1.43L 46%
#Paroxysmal A-fib/flutter on Eliquis
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
#CAD s/p CABG
#PAD with Hx of right femoral endarterectomy and femoral bypass
#DM type II (HbA1C: 7.5 on 08/19/2024)
Assessment and plan:
Remains on low rate supplemental oxygen 4 L.( usually on 2-3L at home)
No change from overnight.
Not bronchospastic on exam. No evidence for COPD exacerbation
Patient has chronic bronchitic cough/smoker's cough.
ABG is compensated but with significantly increased pCO2. Baseline. Last ABG 11/21/2024 -7.41/79/109
-
On his recent outpatient follow-up with me 11/16/2024: The plan was to transition him to nebulized therapy with Brovana/Pulmicort and Yupelri.(This is pending)
He has been using Trelegy. Currently on Spiriva and Symbicort while in the hospital.
-
Chronic hypercapnic respiratory failure/possible obstructive sleep apnea:
Avoid sedatives
His mental status is back to baseline
TSH was normal
UDS only positive for marijuana.
Alcohol level not detected
-
The plan also was to get a split-night study to start noninvasive mechanical ventilation.
It is unclear whether this patient can undergo a polysomnogram with mobility issues, transportation issues etc. I discussed this with the daughter.
Will attempt to get a noninvasive mechanical ventilation prior to discharge, he is at high risk for readmission. Will discuss with case briefer 11/24/2024 to start the process. Not ready for discharge yet
Continue BiPAP 15/5 with naps and at bedtime. Unfortunately, patient is refusing this
Patient is not sure whether he is going to tolerate this long-term. He understands that there is high risk of readmission and without noninvasive mechanical ventilation.
Strongly advised to use as much as possible while asleep.
Dr. Mckeon discussed with patient in detail and discussed again the risk of not using NIV on 11/24/2024. He was okay to set it up. Daughter Ariane who is the main caregiver also indicated that she is interested to set it up.
High risk for readmission without noninvasive mechanical ventilation.
Discussed with CM and will start process.
--
Right pleural effusion: It has been present since at least July 2024.
pH 7.61/white blood cells 178/88% mononuclears/total protein 3/LDH 98-suspect pseudo exudate. As the patient has been getting diuretics.
With increased LVEDP suspect volume overload. proBNP 7000's.
Ultrasound of the abdomen 11/21/2024:Does not mention cirrhosis or portal hypertension.
-
Prior CT chest January 2024 showed no evidence for any pulmonary mass on the right. He has a groundglass pulmonary nodule that needs to be followed. He has a request for repeat CT chest given by me to him on 11/16/2024.
Doubt malignant or infectious in etiology-pleural fluid culture negative. Cytology pending.
Unable to tolerate Diamox due to sulfa allergy.
Continue Lasix per cardiology and primary team.
Follow BMP and electrolytes. Replete as necessary-per primary team.
-
Macrocytic anemia-possibly related to alcohol. Hemoglobin of 6.1. New development since late last year on anticoagulation.
Patient is on Eliquis/Plavix. Currently on hold
Transfuse as necessary.
For endoscopy on Wednesday per GI/colon.
Okay to proceed with GI procedure from the pulmonary perspective. Should monitor mental status closely and BiPAP postprocedure should be used if there is concerns for worsening hypercapnia.
GI following
-
DVT prophylaxis: SCDs for now.
-
Dr. Mckeon updated daughter Ariane over the phone 11/23/2024.
Given multiple comorbidities, advanced COPD Dr. Mckeon discussed with daughter on 11/16/2024 about advanced directives. She was close discussed further.
Follow-up with Dr. Mckeon as previously scheduled after discharge.
-
Will follow
Subjective Data
-
Date of Service:
Date of Service: November 25, 2024
Chief Complaint: Pulmonary Follow Up (Chronic hypercapnic respiratory failure. Shortness of breath.)
Subjective:
Patient presently is without complaints. He does have a mild cough, nonproductive, no blood. Denies chest pain, nausea, abdominal pain. He is sitting in the chair, talking on the phone upon my arrival
Objective Data
Data Reviewed
Vital Signs / I&O / Oxygen:
Vital Signs
Temp Pulse Resp BP Pulse Ox
96.4 F L 72 22 91/74 97
11/25/24 15:00 11/25/24 14:00 11/25/24 14:00 11/25/24 12:00 11/25/24 12:00
Intake and Output
11/24/24 11/25/24 11/26/24
06:59 06:59 06:59
Intake Total 1220 / 1220 480 / 480
Output Total 1900 / 1900 3665 / 3665
Balance -680 / -680 -3185 / -3185
SaO2 97
Nasal Cannula flow liters per 4
minute
Physical Exam
General: Comfortable
HEENT: Normocephalic
Cardiovascular: S1-S2
Respiratory: Clear, Rhonchi (Few with cough) and Non-Labored Respirations
GI: Soft and Non Distended
Neurology: Awake, Alert and No Motor Deficits
Skin: Warm
Labs/Micro/Reports
Lab Data
11/25/24 05:57
11/25/24 05:57
Microbiology
11/21/24 10:26 Pleural Fluid Body Fluid Culture - Final
No Growth After 72 Hours
11/21/24 10:26 Pleural Fluid Gram Stain - Final
[2024-11-25 16:18] LABS: NT-proBNP 7590 pg/ml
[2024-11-25 16:37] LABS: Glucose - Point of Care 277 mg/dl (70-99)
[2024-11-25] MEDS: MAGNESIUM SULFATE 100 IV (17:04)
[2024-11-25] MEDS: LIPITOR 80 MG PO (17:13)
--- NOTE | 2024-11-25 18:28 | PTCARENOTE ---
Convinced him oob to chair this pm after wound care and edi wraps placed. Complaining that he cannot sleep- as he is dozing all day in the bed. Remains on his 4L NC. IV Iron and Mag riders given as ordered. PRN Tylenol given x1 generalized achy
complaints. Attempted education with pt and sister- really unable to get education through to them in regards to diet. She is leaving back to [place] tomorrow.
[2024-11-25] MEDS: TOPROL XL PO (20:47)
[2024-11-25 21:34] LABS: Glucose - Point of Care 212 mg/dl (70-99)
--- NOTE | 2024-11-25 22:02 | PTCARENOTE ---
Rec'd pt from previous RN. Pt AAOx3, cooperative, but expresses discontentment with being hospitalized, noncompliant with ordered diet as sister brings food from home. HS sammy held d/t admin parameters. VSS, 94% on 4L. Denies new complaints at
this time. Call liu within reach.
[2024-11-26] VITALS (12 sets, daily range): BP systolic 94–121; BP diastolic 45–86; BMI 25.4
[2024-11-26] MEDS: TYLENOL 650 MG PO ×2 (02:32→22:40)
[2024-11-26 04:28] LABS: % Basophils 0.3 % (0-2); % Eosinophils 0.5 % (0-6); % Immature Granulocytes 0.6 % (0-0.5); % Monocytes 11.4 % (1.7-9.3); % Neutrophils 80.2 % (42.2-75.2); Absolute Eosinophils 0.1 10^3/uL (0-0.7); Absolute Immature Granulocytes 0.1 10^3/uL (0-0.05); Absolute Lymphocytes 0.7 10^3/uL (1.2-3.4); Absolute Monocytes 1.2 10^3/uL (0.1-0.6); Absolute Neutrophils 8.2 10^3/uL (1.4-6.5); Hematocrit 28.1 % (39.0-52.0); Hemoglobin 8.2 g/dL (13.0-18.0); Mean Corp Hgb Conc. 29.2 g/dL (33.0-37.0); Mean Corpuscular Hgb 28.2 pg (27.0-31.0); Mean Corpuscular Volume 96.6 fL (80.0-94.0); Nucleated Red Blood Cells % 1.7 % (-); Platelet Count 382 10^3/uL (130-400); Red Blood Cell Count 2.91 10^6/uL (4.70-6.10); Red Cell Dist. Width 15.3 % (11.5-14.5); White Blood Cell Count 10.2 10^3/uL (4.8-10.8)
[2024-11-26 04:55] LABS: Blood Urea Nitrogen 15 mg/dl (9-20); Calcium 7.6 mg/dl (8.4-10.2); Chloride 84 mmol/L (98-107); Estimated Creatinine Clearance 95 ml/min; Glucose 238 mg/dl (70-99); Magnesium 1.7 mg/dl (1.6-2.3); Phosphorus 3.1 mg/dl (2.5-4.5); Potassium 3.4 mmol/L (3.5-5.1); Sodium 133 mmol/L (135-145); eGFR > 60.00
[2024-11-26 05:15] LABS: Carbon Dioxide 40 mmol/L (22-30)
--- NOTE | 2024-11-26 05:25 | PTCARENOTE ---
Pt removes O2 frequently to 'clean his nose', drops to 75%. Pt has to be reminded to replace O2 cannula often. Does recover to 90s once cannula replaced.
[2024-11-26 07:55] LABS: Glucose - Point of Care 225 mg/dl (70-99)
[2024-11-26] MEDS: SYMBICORT 80/4.5 MCG INHALER 2 PUFF INH ×2 (07:56→20:55)
[2024-11-26] MEDS: SPIRIVA RESPIMAT 2.5 MCG 2 PUFF INH (07:56)
[2024-11-26] MEDS: PACERONE 200 MG PO (08:29)
[2024-11-26] MEDS: PROTONIX 40 MG PO (08:29)
[2024-11-26] MEDS: LOW STRENGTH ASPIRIN 81 MG PO (08:29)
[2024-11-26] MEDS: TOPROL XL PO (08:29)
[2024-11-26] MEDS: NOVOLOG FLEXPEN-LOW RESISTANCE 2 UNITS SC ×3 (08:30→17:18)
[2024-11-26] MEDS: LASIX 60 MG IV ×2 (08:30→17:17)
--- NOTE | 2024-11-26 10:49 | CM ---
data operations manager reviewed patient's chart and met with patient and patient states he has been getting out of bed, patient remains on 6 liters of oxygen.
Plan; Home when stable, and EULALIO with [facility].
--- NOTE | 2024-11-26 12:07 | W.PN.HOSP.TC ---
Today's Communication/Plan
-
Assessment / Plan
Assessment / Plan
Gen-AA, NAD
HEENT-NC, AT, anicteric, clear oral mm
Neck-supple
CV-reg, no M, +S1/S2
Lungs-clear B/L
Abd-soft, NT, ND
Musculoskeletal-no edema, no deformity
Skin-warm and dry
Neuro-grossly non-focal, alert and interacting appropriately
Psych-calm, cooperative
Mr. Nelson is a 74y M with PMH significant for severe COPD with chronic hypoxemic and hypercapnic respiratory failure, ASCVD and PA-Fib who presents to ED as STEMI alert after being found unresponsive at home. Emergently cath with no
identifiable obstructive disease identified. Was found to be severely anemic and started with blood transfusion. Admitted for further evaluation and management.
Anemia requiring transfusion:
-Secondary to GI bleeding, hemoglobin stable again this morning at 8.2
-Transfused a total of 4 units PRBCs transfused this admission
-Status post upper and lower endoscopy 11/24 with finding of gastric angioectasia status post argon plasma coagulation, 3 colon polyps removed
-On Eliquis and Plavix at home for A-fib and PAD/TIA, currently holding with last dose taken 11/20, plan to restart Eliquis tomorrow 2/3, will discontinue Plavix indefinitely
-Continue Protonix 40 mg p.o. daily and oral iron supplementation
-Appreciate GI input
Encephalopathy:
-Resolved, likely metabolic due to acute on chronic respiratory failure with hypercarbia, also contributed to by acute anemia requiring transfusions
-Continue NIPPV at night and with naps as tolerated, will need to continue after discharge
-Continue scheduled inhalers and nebulizers as needed
-Pulmonology following, recommendations appreciated
-Treat anemia as above
Chronic combined systolic and diastolic heart failure with acute exacerbation:
-History of ischemic cardiomyopathy with reduced ejection fraction of 43%
-Most recent echo 11/13/2024 showed improved ejection fraction of 50% with stage II diastolic dysfunction
-Unclear if patient was adherent with his outpatient medication regimen
-Presented with large right pleural effusion
-Continue Lasix 60 mg IV twice daily
-Beta-blockade with metoprolol succinate 50 mg twice daily as blood pressure tolerates
-Discontinued home Imdur and lisinopril due to hypotension
Acute on chronic respiratory failure with hypercapnia and hypoxia:
-History of COPD
-Initially appeared to be retaining CO2 based on ABG, now much improved
-Pulmonology following, continue NIPPV at night and with naps as tolerated, continue after discharge
-Continue scheduled inhalers and as needed nebulizers
-Patient has sulfa allergy and so not able to tolerate Diamox
Right pleural effusion:
-Large right pleural effusion noted on chest imaging
-Status post right thoracentesis 11/20 with 1.9 L taken off, clear appearing pleural fluid
-Continue aggressive diuresis
Abnormal EKG:
-Emergent cardiac cath overnight 11/20-11/21 revealed no obstructive disease
-Elevated troponin nonischemic myocardial injury
-Continue aspirin and statin
NIDDM:
-Holding home metformin due to GI bleeding, consider restarting as able
-Accu-Cheks with sliding scale as needed
-Consult to diabetes management nurse practitioner
PAD:
-Stable, history of right lower extremity bypass 08/16 for which he was started on Plavix
-Plavix currently held due to GI bleeding, can likely discontinue Plavix permanently
CODE STATUS: Full code
Anticipated Discharge: 24 - 48 hours
Subjective/Interval History
-
Date of Service: November 26, 2024
Patient was seen and examined at bedside this morning. Feeling well, hemoglobin stable. Still holding Eliquis.
Objective Data
-
Labs:
Laboratory Results
11/26/24
04:02
WBC 10.2
Hgb 8.2 L
Hct 28.1 L
Plt Count 382
Sodium 133 L
Potassium 3.4 L
Chloride 84 L
Carbon Dioxide 40 H
BUN 15
Creatinine 0.7
Glucose 238 H
Calcium 7.6 L
Vital Signs:
Vital Signs
Temp Pulse Resp BP Pulse Ox
98.1 F 74 15 112/49 98
11/26/24 11:00 11/26/24 10:00 11/26/24 10:00 11/26/24 10:00 11/26/24 10:00
I&O
11/25/24 11/26/24 11/27/24
06:59 06:59 06:59
Intake Total 480 / 480 1830 / 1830 720 / 720
Output Total 3665 / 3665 3080 / 3080 1950 / 1950
Balance -3185 / -3185 -1250 / -1250 -1230 / -1230
Review of Systems
-
History Source: Patient
All other systems: Reviewed and negative
Physical Exam
-
General: No Apparent Distress
[2024-11-26 12:33] LABS: Glucose - Point of Care 239 mg/dl (70-99)
--- NOTE | 2024-11-26 13:03 | W.PN.CARDCBS ---
Today's Communication / Plan
-
Still with some excess volume. proBNP 11/25/2023 remained elevated around 7600.
Lasix IV continued. Likely transition to oral diuretic in the next day or 2
Blood pressure low but stable.
GI is okay with resuming Eliquis with close follow-up. I have started
Impression / Plan
-
Can Cleaner: Dr Riggs
Impression:
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
Out of hospital STEMI alert 11/21/2024
no evidence of culprit lesion by cardiac cath to explain patient's presentation 11/13/2024
Elevated Troponin
CAD
s/p remote CABG at [facility] with SHEEHAN to LAD
PCI with unclear details at [place]
Acute macrocytic anemia, Hgb on admission 6.1
Melena
Acute on chronic HFpEF
History of CVA 2010
Paroxysmal atrial fibrillation/flutter
Chronic Eliquis OAC
Chronic amiodarone therapy
PAD
s/p right femoral endarterectomy with saphenous vein angioplasty and right femoral to PT bypass 07/1123
chronic Plavix therapy
Poor medical compliance
Osteomyelitis toe
COPD
HTN
HLD
DM2
Ongoing tobacco use
h/o bedbugs 06/17 admission
Pleural effusion
s/p right sided thora for 1.9 L 11/21/24
Dobutamine nuclear stress test 07/29/23 finds large inferior and basal inferior septal infarct without stephanie-infarct ischemia. Baseline LVEF 43%
Echo 07/28/23 finds normal LV size and function with LVEF in the low normal range estimated at 51% with basal to mid inferior wall severe hypokinesis. No significant valvular disease.
Echo 06/12/2024: EF 50%, basal inferior wall hypokinetic on parasternal short axis views, RV mildly dilated, mildly dilated RA, no significant valvular disease noted
Echo 11/13/2024: EF 50%, stage II diastolic dysfunction, trace MR, mild TR with PAP 44 mmHg no
Echocardiogram 11/21/2024: Ejection fraction 50%, basal inferior akinesis, mild TR, PA systolic 44 mmHg, enlarged right ventricle with right ventricular hypokinesis
Cardiac catheterization 11/21/2024
LM: Large with mild disease
LAD: Large vessel that is proximally occluded within stent just after the takeoff of a large septal with the mid to distal vessel filled by patent SHEEHAN to LAD.
LCx: Large vessel with mild to moderate nonobstructive disease including a 50% stenosis in the mid body of the OM2
RCA: The proximal to distal vessel contains overlapping stents with mild ISR. There is a small region of haziness in the distal vessel as well as in the bifurcation of the distal RCA and RPDA/RPAV. This like represents eccentric atherosclerotic
plaque. There is DIMITRI-3 flow distally.
BYPASS GRAFT ANGIOGRAPHY:
SHEEHAN-LAD: the SHEEHAN is taken as a pedicle and forms an anastomosis with the mid-LAD.
There are clips on the right side of the aorta possible suggestive of an additional bypass graft. Non selective aortogram was performed and did not demonstrate presence of additional patent grafts.
Plan:
He is feeling better today overall. He feels more energetic and got some sleep. No bleeding noted.
He has paroxysmal atrial fibrillation with anticoagulation previously on hold because of severe GI bleeding requiring transfusion. In addition on presentation patient underwent cardiac catheterization given STEMI alert in the setting of known
coronary artery disease with nonobstructive disease requiring continued medical management.
He has advanced COPD and lung nodule in addition which is being followed by pulmonary.
GI bleed. GI status currently stable. Hemoglobin stable. EGD and colonoscopy 11/24/2024. He required assist bag ventilation throughout the procedures. EGD patient underwent treatment for angioectasia with APC in the stomach. Colonoscopy revealed
3 adenomatous appearing medium size polyps. Discussed with GI and we may proceed to resume oral anticoagulation and follow closely.
Remains in sinus rhythm with known paroxysmal atrial fibrillation.
Continue amiodarone.
Resume Eliquis have discussed with GI.
Telemetry reviewed.
As an outpatient may want to keep a close eye on hemoglobin.
Heart failure with preserved ejection fraction. proBNP 11/25/2023 remained elevated around 7600.
Lasix IV continued. Likely transition to oral in the next day or 2
He is diuresing well but still requiring 4 L of oxygen. Weight has decreased once again.
Continue Toprol but previously lisinopril has been held due to hypotension. Reassess as an outpatient.
Blood pressure low but stable.
Outpatient dose of Plavix is for h/o RLE bypass 07/2023 and will likely discontinue Plavix permanently
HPI: This is a 74-year-old man with multiple medical conditions including coronary artery disease status post distant CABG, who presents with loss of consciousness and lateral ST elevations on initial EKG. Given his history and findings the Cath
Lab was activated for emergent coronary angiography which did not reveal a culprit to explain his presentation. Relevant findings include a new large right pleural effusion and new severe anemia with hemoglobin of 6 from prior baseline of 12. 2
units of blood were ordered. The patient will be admitted to the hospitalist service for further workup and management with cardiology following. Administered 2 units of blood and trend hemoglobin. Further workup to determine cause of anemia.
For now, would hold Eliquis and Plavix while working up cause of anemia.
Resume patient's home diuretic regimen, but hold additional GDMT for now given mild hypotension until hemodynamics allow restart.
Progress Note - Can Cleaner
Subjective
Date of Service: November 26, 2024
He denies chest pain, palpitations and dizziness.
Objective
Labs:
11/26/24 04:02
11/26/24 04:02
Labs
Hgb 8.2 g/dL (13.0-18.0) L 11/26/24 04:02
Hct 28.1 % (39.0-52.0) L 11/26/24 04:02
Plt Count 382 10^3/uL (130-400) 11/26/24 04:02
PT 17.1 Sec (11.4-14.6) H 11/21/24 09:17
INR 1.37 11/21/24 09:17
APTT 25.1 Sec (23.4-35.0) 11/21/24 01:32
Sodium 133 mmol/L (135-145) L 11/26/24 04:02
Potassium 3.4 mmol/L (3.5-5.1) L 11/26/24 04:02
BUN 15 mg/dl (9-20) 11/26/24 04:02
Creatinine 0.7 mg/dL (0.7-1.3) 11/26/24 04:02
Glucose 238 mg/dl (70-99) H 11/26/24 04:02
Vital Signs and I&O:
Vital Signs
Temp Pulse Resp BP Pulse Ox
98.1 F 69 21 94/51 94
11/26/24 11:00 11/26/24 12:00 11/26/24 12:00 11/26/24 12:00 11/26/24 12:00
Vital Signs
Temp Pulse Resp BP Pulse Ox
98.1 F 69 21 94/51 94
11/26/24 11:00 11/26/24 12:00 11/26/24 12:00 11/26/24 12:00 11/26/24 12:00
Intake & Output
11/24/24 11/25/24 11/26/24 11/27/24
06:59 06:59 06:59 06:59
Intake Total 1220 / 1220 480 / 480 1830 / 1830 720 / 720
Output Total 1900 / 1900 3665 / 3665 3080 / 3080 1950 / 1950
Balance -680 / -680 -3185 / -3185 -1250 / -1250 -1230 / -1230
Physical Exam
Physical Exam
General: Well developed, well nourished in NAD.
Heart: Non displaced PMI, RRR, no murmurs, No S3, S4, no rubs.
Lungs: Coarse breath sounds with few rhonchi decreased at the bases
Extremities: No clubbing, cyanosis and trace edema bilaterally.
Neuro: Grossly nonfocal, awake, alert
[2024-11-26] MEDS: KCL 40 MEQ PO (13:07)
[2024-11-26] MEDS: FERRLECIT 110 MG IV (13:08)
--- NOTE | 2024-11-26 15:00 | W.PN.PUL3 ---
Today's Communication / Plan
-
Case management to assess status of NIV at discharge
Patient appears to be at baseline oxygen requirement
Chest exam is clear
Disposition efforts
Assessment
-
74-year-old man with multiple medical problems. Advanced COPD. Chronic hypercapnic and hypoxemic respiratory failure. Coronary artery disease post bypass, peripheral vascular disease, ongoing smoking, alcohol abuse disorder. Admitted through the
emergency room with change in mental status. Alert for possible ST myocardial infarction. Underwent cardiac catheterization that showed nonobstructive coronary artery disease. We were consulted on 11/21/2024 for evaluation of his chronic medical
problems.
Chronic hypercapnic respiratory failure-due to advanced COPD. Not on acute exacerbation.
ABG 11/21/2024: 7.37/86/142
Acute abrupt onset of mental status change-back to baseline
Right pleural effusion: 11/21/2024 status post thoracentesis 1900 cc of clear pleural fluid.
Present since July 2024 based on chest x-ray.
EKG changes initially admitted as ST elevation myocardial infraction alert
Cardiac catheterization 11/21/2024: Nonobstructive coronary artery disease. Elevated LVEDP at 19.
-
# Lung nodule 7.4 mm on CAT scan January 2024-due for repeat CT. Request given 11/16/2024.
#Active tobacco smoker-ongoing
# Advanced COPD due to tobacco use not in an acute exacerbation
Chronic hypoxemic respiratory failure 2-3 L of supplemental oxygen.
On Trelegy
Last seen by Dr. Mckeon 11/16/2024
PFT 2022 - 1.43L 46%
#Paroxysmal A-fib/flutter on Eliquis
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
#CAD s/p CABG
#PAD with Hx of right femoral endarterectomy and femoral bypass
#DM type II (HbA1C: 7.5 on 08/19/2024)
Assessment and plan:
At this time, patient appears to be stable from pulmonary standpoint, oxygen weaned down to 3 L
Negative fluid status noted
This is close to his baseline
Chest exam is clear
Last ABG 11/21/2024 -7.41/79/109
serum bicarbonate 40
-
On his recent outpatient follow-up with me 11/16/2024: The plan was to transition him to nebulized therapy with Brovana/Pulmicort and Yupelri.(This is pending)
He has been using Trelegy. Currently on Spiriva and Symbicort while in the hospital.
-
Chronic hypercapnic respiratory failure/possible obstructive sleep apnea:
Avoid sedatives
His mental status is back to baseline
TSH was normal
UDS only positive for marijuana.
Alcohol level not detected
-
The plan also was to get a split-night study to start noninvasive mechanical ventilation.
It is unclear whether this patient can undergo a polysomnogram with mobility issues, transportation issues etc. I discussed this with the daughter.
Will attempt to get a noninvasive mechanical ventilation prior to discharge, he is at high risk for readmission. Will discuss with medical case manager 11/24/2024 to start the process. Not ready for discharge yet
Continue BiPAP 08/03 with naps and at bedtime. Unfortunately, patient is refusing this
Patient is not sure whether he is going to tolerate this long-term. He understands that there is high risk of readmission and without noninvasive mechanical ventilation.
Strongly advised to use as much as possible while asleep.
Dr. Mckeon discussed with patient in detail and discussed again the risk of not using NIV on 11/24/2024. He was okay to set it up. Daughter Ariane who is the main caregiver also indicated that she is interested to set it up.
High risk for readmission without noninvasive mechanical ventilation.
Discussed with CM and will start process.
Will assess status of this on 11/27 with case management
--
Right pleural effusion: It has been present since at least July 2024.
pH 7.61/white blood cells 178/88% mononuclears/total protein 3/LDH 98-suspect pseudo exudate. As the patient has been getting diuretics.
With increased LVEDP suspect volume overload. proBNP 7000's.
Ultrasound of the abdomen 11/21/2024:Does not mention cirrhosis or portal hypertension.
-
Prior CT chest January 2024 showed no evidence for any pulmonary mass on the right. He has a groundglass pulmonary nodule that needs to be followed. He has a request for repeat CT chest given by me to him on 11/16/2024.
Doubt malignant or infectious in etiology-pleural fluid culture negative. Cytology pending.
Unable to tolerate Diamox due to sulfa allergy.
Continue Lasix per cardiology and primary team.
Follow BMP and electrolytes. Replete as necessary-per primary team.
-
Macrocytic anemia-possibly related to alcohol. Hemoglobin of 6.1. New development since late last year on anticoagulation.
Patient is on Eliquis/Plavix. Currently on hold
Transfuse as necessary.
For endoscopy on Wednesday per GI/colon.
Okay to proceed with GI procedure from the pulmonary perspective. Should monitor mental status closely and BiPAP postprocedure should be used if there is concerns for worsening hypercapnia.
GI following
-
DVT prophylaxis: SCDs for now.
-
Dr. Mckeon updated daughter Ariane over the phone 11/23/2024.
Given multiple comorbidities, advanced COPD Dr. Mckeon discussed with daughter on 11/16/2024 about advanced directives. She was close discussed further.
Follow-up with Dr. Mckeon as previously scheduled after discharge.
-
Will follow
Subjective Data
-
Date of Service:
Date of Service: November 26, 2024
Chief Complaint: Pulmonary Follow Up (Chronic hypercapnic respiratory failure. Shortness of breath.)
Subjective:
Patient is feeling well. He denies significant shortness of breath. Has a dry cough but no hemoptysis, nausea, abdominal pain
Objective Data
Data Reviewed
Vital Signs / I&O / Oxygen:
Vital Signs
Temp Pulse Resp BP Pulse Ox
98.1 F 71 19 113/49 95
11/26/24 11:00 11/26/24 14:00 11/26/24 14:00 11/26/24 14:00 11/26/24 14:00
Intake and Output
11/25/24 11/26/24 11/27/24
06:59 06:59 06:59
Intake Total 480 / 480 1830 / 1830 1310 / 1310
Output Total 3665 / 3665 3080 / 3080 2350 / 2350
Balance -3185 / -3185 -1250 / -1250 -1040 / -1040
SaO2 95
Nasal Cannula flow liters per 6
minute
Physical Exam
General: Comfortable
HEENT: Normocephalic
Cardiovascular: S1-S2
Respiratory: Clear, Wheeze (n), Crackles (n), Rhonchi (n) and Non-Labored Respirations
GI: Soft, Non Distended and Normal Bowel Sounds
Neurology: Awake, Alert and No Motor Deficits
Skin: Cyanosis (n), Jaundice (n) and Rash (n)
Labs/Micro/Reports
Lab Data
11/26/24 04:02
11/26/24 04:02
Microbiology
11/21/24 10:26 Pleural Fluid Body Fluid Culture - Final
No Growth After 72 Hours
11/21/24 10:26 Pleural Fluid Gram Stain - Final
--- NOTE | 2024-11-26 15:24 | PTCARENOTE ---
Patient AOx3. Patient is forgetful. Bed alarm on and audible. Patient on 4L NC. NSR on monitor. Patient utilizes urinal with yellow urine. Patient tolerating cholesterol lowering diet. Assist x1. Call liu within reach, bed in lowest position, and
bed of wheels locked.
[2024-11-26 17:12] LABS: Glucose - Point of Care 228 mg/dl (70-99)
[2024-11-26] MEDS: LIPITOR 80 MG PO (17:17)
--- NOTE | 2024-11-26 17:49 | PTCARENOTE ---
Verbal report given to Ana Paula GARCIA in IVU. Patient transferred via wheelchair by PCT. Patient belongings sent with patient.
--- NOTE | 2024-11-26 18:15 | PTCARENOTE ---
patient arrived from IMU, monitor on, NSR, VSS. patient appears very weak, ashen in color. lung patton coarse throughout, on 3.5L NC, o2 sat 97%. INT in right forearm, flushes well. edi wraps on bilat legs, edema noted, weak pulses. ordered patients
dinner for him. patient voided 800cc of clear yellow urine. oriented patient to room , call liu and his surroundings.
[2024-11-26] MEDS: ELIQUIS 5 MG PO (20:05)
[2024-11-26] MEDS: TOPROL XL 50 MG PO (20:06)
[2024-11-26 21:05] LABS: Glucose - Point of Care 249 mg/dl (70-99)
--- NOTE | 2024-11-26 21:28 | PTCARENOTE ---
Patient received at change of shift resting in the bed. Patient initially agitated, upset that staff was not in his room, insisted his call liu was on when it was not. Patient oriented to call liu use and what button to press for the nurse.
Patient angry, verbally aggressive with staff at times but was able to be deescalated and agreeable to taking evening medications. Patient's only physical complaint was shortness of breath, assisted patient with repositioning, oxygen increased from
3L to 4L for patient comfort, oxygen saturation 93-94%. Extra pillows and fan provided for patient comfort. Bedside tables and various personal items adjusted so that they are within reach of the patient. Normal sinus rhythm on surveillance system monitor.
Plan of care was discussed. Call liu is within reach. Bed alarm armed as patient can be forgetful at times. Care ongoing.
[2024-11-27] VITALS (7 sets, daily range): BP systolic 99–141; BP diastolic 47–66; PULSE 75; O2SAT 97; BMI 25.6
[2024-11-27] MEDS: TYLENOL 650 MG PO ×4 (02:44→23:20)
[2024-11-27 07:18] LABS: Glucose - Point of Care 150 mg/dl (70-99)
[2024-11-27] MEDS: SYMBICORT 80/4.5 MCG INHALER 2 PUFF INH ×2 (08:33→20:43)
[2024-11-27] MEDS: SPIRIVA RESPIMAT 2.5 MCG 2 PUFF INH (08:33)
--- NOTE | 2024-11-27 08:42 | PN.DE.MGMTRT ---
Insulin Management
- -
11/27/2024: Diabetes Management Consult
74 year old male with PMH: CAD s/p remote CABG at [facility] , Acute on chronic HFpEF, severe COPD with chronic hypoxemic and hypercapnic respiratory failure, PA-Fib/flutter on OAC, HTN, HLD, h/o CVA 2010, PAD s/p right femoral endarterectomy with
saphenous vein angioplasty and right femoral to PT bypass 07/1123, Osteomyelitis toe, Acute macrocytic anemia, Hgb on admission 6.1, Ongoing tobacco use, h/o bedbugs 06/17 admission, Pleural effusion s/p right sided thora for 1.9 L 11/21/24, Melena
and T2DM. Pt presented to ED as Out of hospital STEMI alert 11/21/2024, after being found unresponsive at home.
He underwent cardiac cath that showed no obstructive disease. Was found to be severely anemic and treated with blood transfusion.
Current A1C 5.1%, was 7.6% on 08/19/2024. Cr 0.8, eGFR >60.
Pt awake, alert, oriented, sitting up in bed, offers no complaints, able to discuss diabetes plan of care. 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
2/2 premeal glucose elevated, 225 to 239. Current diabetes regimen is low corrective insulin only. FBG 150 this AM
Will resume Metformin 500mg BID and start Januvia 100mg daily both to be started this morning.
Pt states he has a working meter that he recently obtained through his PCP and is comfortable checking his blood sugars at home.
Diabetes History
- -
Type of Diabetes: 2
Pre-Admission Diabetes Regimen
Lab Results
Hemoglobin A1c 5.1 % (4.0-5.6) 11/21/24 09:17
Insulin Pump Settings
IP Diabetes Regimen
11/26/24 11/26/24 11/26/24
12:22 17:00 21:04
POC Glucose 239 H 228 H 249 H
11/27/24
07:16
POC Glucose 150 H
Meal type: Breakfast
Meal type: Dinner
Amount consumed: 100%
Amount consumed: 100%
Patient Education
--- NOTE | 2024-11-27 08:58 | W.PN.CARDCBS ---
Today's Communication / Plan
-
Continue IV Lasix
Morning labs pending
Impression / Plan
-
Material Controller: Dr Riggs
Impression:
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
Out of hospital STEMI alert 11/21/2024
no evidence of culprit lesion by cardiac cath to explain patient's presentation 11/13/2024
Elevated Troponin
CAD
s/p remote CABG at [facility] with SHEEHAN to LAD
PCI with unclear details at [place]
Acute macrocytic anemia, Hgb on admission 6.1
Melena
Acute on chronic HFpEF
History of CVA 2010
Paroxysmal atrial fibrillation/flutter
Chronic Eliquis OAC
Chronic amiodarone therapy
PAD
s/p right femoral endarterectomy with saphenous vein angioplasty and right femoral to PT bypass 07/1123
chronic Plavix therapy
Poor medical compliance
Osteomyelitis toe
COPD
HTN
HLD
DM2
Ongoing tobacco use
h/o bedbugs 06/17 admission
Pleural effusion
s/p right sided thora for 1.9 L 11/21/24
Dobutamine nuclear stress test 07/29/23 finds large inferior and basal inferior septal infarct without stephanie-infarct ischemia. Baseline LVEF 43%
Echo 07/28/23 finds normal LV size and function with LVEF in the low normal range estimated at 51% with basal to mid inferior wall severe hypokinesis. No significant valvular disease.
Echo 06/12/2024: EF 50%, basal inferior wall hypokinetic on parasternal short axis views, RV mildly dilated, mildly dilated RA, no significant valvular disease noted
Echo 11/13/2024: EF 50%, stage II diastolic dysfunction, trace MR, mild TR with PAP 44 mmHg no
Echocardiogram 11/21/2024: Ejection fraction 50%, basal inferior akinesis, mild TR, PA systolic 44 mmHg, enlarged right ventricle with right ventricular hypokinesis
Cardiac catheterization 11/21/2024
LM: Large with mild disease
LAD: Large vessel that is proximally occluded within stent just after the takeoff of a large septal with the mid to distal vessel filled by patent SHEEHAN to LAD.
LCx: Large vessel with mild to moderate nonobstructive disease including a 50% stenosis in the mid body of the OM2
RCA: The proximal to distal vessel contains overlapping stents with mild ISR. There is a small region of haziness in the distal vessel as well as in the bifurcation of the distal RCA and RPDA/RPAV. This like represents eccentric atherosclerotic
plaque. There is DIMITRI-3 flow distally.
BYPASS GRAFT ANGIOGRAPHY:
SHEEHAN-LAD: the SHEEHAN is taken as a pedicle and forms an anastomosis with the mid-LAD.
There are clips on the right side of the aorta possible suggestive of an additional bypass graft. Non selective aortogram was performed and did not demonstrate presence of additional patent grafts.
Plan:
Overnight no acute events; labs pending this am
He has paroxysmal atrial fibrillation with anticoagulation previously on hold because of severe GI bleeding requiring transfusion.
Remains in sinus rhythm with known paroxysmal atrial fibrillation.
Continue amiodarone.
Resumed Eliquis 11/26/24
Monitor H/H
CAD/ s/p underwent cardiac catheterization given STEMI alert 11/21/24
-No CP; in setting of GI bleed and Hb 6.1
-CTNI flat- 0.073, 0.084, 0.076
-LHC with stable disease and no obvious culprit
-continued medical management.
HFmEF
-Echo 11/21/24: Normal left ventricular size and function. Mild concentric left ventricular hypertrophy. Left ventricular ejection fraction is 50% by visual assessment. There is basal inferior akinesis. Stage II diastolic dysfunction suggestive of
abnormal relaxation and increased filling pressures. Mitral valve opens normally. Thickened mitral valve leaflets. Mitral annular calcification. Trace mitral regurgitation is seen. Mildly dilated left atrium. Tricuspid valve opens normally. Mild
tricuspid regurgitation. Estimated pulmonary artery pressure of 44 mmHg. Assuming a right atrial pressure of 8 mmHg. Dilated right atrium. Enlarged right ventricular size. Right ventricular hypokinesis.
-proBNP 7630-->7590
-Continuer Lasix
-Continue Toprol but previously lisinopril has been held due to hypotension. Reassess as an outpatient.
-Blood pressure low but stable.
He has advanced COPD and lung nodule in addition which is being followed by pulmonary.
GI bleed.
-status currently stable.
-Hemoglobin stable.
-EGD and colonoscopy 11/24/2024.
-He required assist bag ventilation throughout the procedures. EGD patient underwent treatment for angioectasia with APC in the stomach. Colonoscopy revealed 3 adenomatous appearing medium size polyps.
-Discussed with GI and we may proceed to resume oral anticoagulation and follow closely.
Outpatient dose of Plavix is for h/o RLE bypass 07/2023 and will likely discontinue Plavix permanently
HPI: This is a 74-year-old man with multiple medical conditions including coronary artery disease status post distant CABG, who presents with loss of consciousness and lateral ST elevations on initial EKG. Given his history and findings the Cath
Lab was activated for emergent coronary angiography which did not reveal a culprit to explain his presentation. Relevant findings include a new large right pleural effusion and new severe anemia with hemoglobin of 6 from prior baseline of 12. 2
units of blood were ordered. The patient will be admitted to the hospitalist service for further workup and management with cardiology following. Administered 2 units of blood and trend hemoglobin. Further workup to determine cause of anemia.
For now, would hold Eliquis and Plavix while working up cause of anemia.
Resume patient's home diuretic regimen, but hold additional GDMT for now given mild hypotension until hemodynamics allow restart.
Progress Note - Material Controller
Subjective
Date of Service: November 27, 2024
Seen and examined. Has no complaints this morning.
Objective
Labs:
Labs
Hgb 8.2 g/dL (13.0-18.0) L 11/26/24 04:02
Hct 28.1 % (39.0-52.0) L 11/26/24 04:02
Plt Count 382 10^3/uL (130-400) 11/26/24 04:02
PT 17.1 Sec (11.4-14.6) H 11/21/24 09:17
INR 1.37 11/21/24 09:17
APTT 25.1 Sec (23.4-35.0) 11/21/24 01:32
Sodium 133 mmol/L (135-145) L 11/26/24 04:02
Potassium 3.4 mmol/L (3.5-5.1) L 11/26/24 04:02
BUN 15 mg/dl (9-20) 11/26/24 04:02
Creatinine 0.7 mg/dL (0.7-1.3) 11/26/24 04:02
Glucose 238 mg/dl (70-99) H 11/26/24 04:02
Vital Signs and I&O:
Vital Signs
Temp Pulse Resp BP Pulse Ox
97.8 F 75 18 117/49 97
11/27/24 07:34 11/27/24 06:00 11/27/24 07:34 11/27/24 02:46 11/27/24 07:34
Vital Signs
Temp Pulse Resp BP Pulse Ox
97.8 F 75 18 117/49 97
11/27/24 07:34 11/27/24 06:00 11/27/24 07:34 11/27/24 02:46 11/27/24 07:34
Intake & Output
11/25/24 11/26/24 11/27/24 11/28/24
06:59 06:59 06:59 06:59
Intake Total 480 / 480 1830 / 1830 1310 / 1310
Output Total 3665 / 3665 3080 / 3080 4375 / 4375 600 / 600
Balance -3185 / -3185 -1250 / -1250 -3065 / -3065 -600 / -600
Physical Exam
Physical Exam
General: Well developed, well nourished in NAD.
Heart: Regular. Positive S1-S2. No murmurs.
Lungs: Coarse breath sounds with few rhonchi decreased at the bases
Extremities: +1 edema bilaterally. Mayur bandages bilaterally
--- NOTE | 2024-11-27 09:01 | W.PN.PUL3 ---
Today's Communication / Plan
-
Case management to assess status of NIV at discharge
Patient appears to be at baseline oxygen requirement
Goal SpO2 88-95%
Disposition efforts
Assessment
-
74-year-old man with multiple medical problems. Advanced COPD. Chronic hypercapnic and hypoxemic respiratory failure. Coronary artery disease post bypass, peripheral vascular disease, ongoing smoking, alcohol abuse disorder. Admitted through the
emergency room with change in mental status. Alert for possible ST myocardial infarction. Underwent cardiac catheterization that showed nonobstructive coronary artery disease. We were consulted on 11/21/2024 for evaluation of his chronic medical
problems.
Chronic hypercapnic respiratory failure-due to advanced COPD. Not on acute exacerbation.
ABG 11/21/2024: 7.37/86/142
Acute abrupt onset of mental status change-back to baseline
Right pleural effusion: 11/21/2024 status post thoracentesis 1900 cc of clear pleural fluid.
Present since July 2024 based on chest x-ray.
EKG changes initially admitted as ST elevation myocardial infraction alert
Cardiac catheterization 11/21/2024: Nonobstructive coronary artery disease. Elevated LVEDP at 19.
-
# Lung nodule 7.4 mm on CAT scan January 2024-due for repeat CT. Request given 11/16/2024.
#Active tobacco smoker-ongoing
# Advanced COPD due to tobacco use not in an acute exacerbation
Chronic hypoxemic respiratory failure 2-3 L of supplemental oxygen.
On Trelegy
Last seen by Dr. Mckeon 11/16/2024
PFT 2022 - 1.43L 46%
#Paroxysmal A-fib/flutter on Eliquis
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
#CAD s/p CABG
#PAD with Hx of right femoral endarterectomy and femoral bypass
#DM type II (HbA1C: 7.5 on 08/19/2024)
Assessment and plan:
At this time, patient appears to be stable from pulmonary standpoint, oxygen weaned down to 3 L
Negative fluid status noted
Chest exam is clear
Last ABG 11/21/2024 -7.41/79/109
serum bicarbonate 40
he has been refusing BiPAP at night
-
On his recent outpatient follow-up with me 11/16/2024: The plan was to transition him to nebulized therapy with Brovana/Pulmicort and Yupelri.(This is pending)
He has been using Trelegy. Currently on Spiriva and Symbicort while in the hospital.
-
Chronic hypercapnic respiratory failure/possible obstructive sleep apnea:
Avoid sedatives
His mental status is back to baseline
TSH was normal at 0.93 on 11/21/2024
UDS only positive for marijuana.
Alcohol level not detected
-
The plan also was to get a split-night study to start noninvasive mechanical ventilation.
It is unclear whether this patient can undergo a polysomnogram with mobility issues, transportation issues etc. This was discussed with the daughter.
Will attempt to get a noninvasive mechanical ventilation prior to discharge, he is at high risk for readmission. Will discuss with upper caser 11/24/2024 to start the process. Not ready for discharge yet
Continue BiPAP 15/5 with naps and at bedtime. Unfortunately, patient is refusing this
Patient is not sure whether he is going to tolerate this long-term. He understands that there is high risk of readmission and without noninvasive mechanical ventilation.
Strongly advised to use as much as possible while asleep.
Dr. Mckeon discussed with patient in detail and discussed again the risk of not using NIV on 11/24/2024. He was okay to set it up. Daughter Ariane who is the main caregiver also indicated that she is interested to set it up.
High risk for readmission without noninvasive mechanical ventilation.
Discussed with CM and will start process --> this will be an ongoing discussion while disposition efforts continue
--
Right pleural effusion: It has been present since at least July 2024.
pH 7.61/white blood cells 178/88% mononuclears/total protein 3/LDH 98-suspect pseudo exudate as the patient has been getting diuretics.
With increased LVEDP suspect volume overload. proBNP 7000's.
Ultrasound of the abdomen 11/21/2024:Does not mention cirrhosis or portal hypertension.
-
Prior CT chest January 2024 showed no evidence for any pulmonary mass on the right. He has a groundglass pulmonary nodule that needs to be followed. He has a request for repeat CT chest given by me to him on 11/16/2024.
Doubt malignant or infectious in etiology-pleural fluid culture negative. Cytology pending.
Unable to tolerate Diamox due to sulfa allergy.
Continue Lasix per cardiology and primary team (currently on 60 mg IV BID)
Follow BMP and electrolytes. Replete as necessary-per primary team.
-
Macrocytic anemia-possibly related to alcohol. Hemoglobin of 6.1 on 11/23/2024. New development since late last year on anticoagulation.
Patient is on Eliquis/Plavix. Currently on hold
Transfuse as necessary. --> Has received 4 units PRBCs since admission, last given on 11/23/2024
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
polyps throughout with 3 of them removed and diverticulosis in the left colon
GI following
-
DVT prophylaxis: Eliquis resumed on 11/26/2024
-
Dr. Mckeon updated daughter Ariane over the phone 11/23/2024.
Given multiple comorbidities including advanced COPD - Dr. Mckeon discussed with daughter on 11/16/2024 about advanced directives - he remains full code
Follow-up with Dr. Mckeon as previously scheduled after discharge.
-
Will follow
Total time spent today was 37 minutes for this encounter. Time includes reviewing laboratory test/imaging results, reviewing pertinent medical records, obtaining and reviewing medical history, performing an appropriate exam, ordering medications,
tests and procedures. Time also includes documentation of this encounter, coordinating patient care and communicating with other healthcare professionals. Total time does not include separately billed tests performed on this date of service.
Subjective Data
-
Date of Service:
Date of Service: November 27, 2024
Chief Complaint: Pulmonary Follow Up (Chronic hypercapnic respiratory failure. Shortness of breath.)
Subjective:
Patient seen and evaluated today at bedside. Sitting in chair in no acute distress on 3 L/min saturating 98%. Heart rate 66 and BP 107/55. Says that he is breathing okay although has some shortness of breath in the morning and at night with
occasional cough, but can bring up his phlegm okay. Not using BiPAP at night as he is refusing. Currently denies chest pain, KENNY, nausea, fevers or chills. He says he is not sleeping well as he is being interrupted at nighttime.
Review of Systems
General: Other (Negative unless mentioned above)
Objective Data
Data Reviewed
Vital Signs / I&O / Oxygen:
Vital Signs
Temp Pulse Resp BP Pulse Ox
97.8 F 82 18 106/58 97
11/27/24 07:34 11/27/24 08:00 11/27/24 07:34 11/27/24 07:38 11/27/24 07:34
Intake and Output
11/26/24 11/27/24 11/28/24
06:59 06:59 06:59
Intake Total 1830 / 1830 1310 / 1310
Output Total 3080 / 3080 4375 / 4375 600 / 600
Balance -1250 / -1250 -3065 / -3065 -600 / -600
SaO2 97
Nasal Cannula flow liters per 3
minute
Physical Exam
General: Respiratory Distress (n), Comfortable, Chills (n) and Sweats (n)
HEENT: Normocephalic and Anicteric
Cardiovascular: S1-S2 and Peripheral Edema (+1 lower extremity edema bilaterally)
Respiratory: Wheeze (n), Crackles (Bilateral), Rhonchi (n) and Non-Labored Respirations
GI: Soft, Non Distended and Normal Bowel Sounds
Neurology: AO x 3 and Tremors (n)
Skin: Warm, Dry, Cyanosis (n), Jaundice (n) and Rash (n)
Labs/Micro/Reports
Lab Data
11/27/24 09:05
11/27/24 09:05
Microbiology
11/21/24 10:26 Pleural Fluid Body Fluid Culture - Final
No Growth After 72 Hours
11/21/24 10:26 Pleural Fluid Gram Stain - Final
[2024-11-27] MEDS: TOPROL XL 50 MG PO ×2 (09:09→19:57)
[2024-11-27] MEDS: LOW STRENGTH ASPIRIN 81 MG PO (09:09)
[2024-11-27] MEDS: PACERONE 200 MG PO (09:09)
[2024-11-27] MEDS: PROTONIX 40 MG PO (09:09)
[2024-11-27] MEDS: ELIQUIS 5 MG PO ×2 (09:10→19:57)
[2024-11-27] MEDS: NOVOLOG FLEXPEN-LOW RESISTANCE 1 UNITS SC ×2 (09:11→18:26)
[2024-11-27 09:34] LABS: % Basophils 0.3 % (0-2); % Eosinophils 0.7 % (0-6); % Immature Granulocytes 0.6 % (0-0.5); % Lymphocytes 7.7 % (20.5-51.1); % Monocytes 11.5 % (1.7-9.3); % Neutrophils 79.2 % (42.2-75.2); Absolute Eosinophils 0.1 10^3/uL (0-0.7); Absolute Immature Granulocytes 0.1 10^3/uL (0-0.05); Absolute Lymphocytes 0.7 10^3/uL (1.2-3.4); Absolute Neutrophils 7.1 10^3/uL (1.4-6.5); Hematocrit 29.4 % (39.0-52.0); Hemoglobin 8.3 g/dL (13.0-18.0); Mean Corp Hgb Conc. 28.2 g/dL (33.0-37.0); Mean Corpuscular Hgb 28.4 pg (27.0-31.0); Mean Corpuscular Volume 100.7 fL (80.0-94.0); Mean Platelet Volume 9.8 fL (7.4-10.4); Nucleated Red Blood Cells % 1.2 % (-); Platelet Count 452 10^3/uL (130-400); Red Blood Cell Count 2.92 10^6/uL (4.70-6.10); Red Cell Dist. Width 15.5 % (11.5-14.5)
[2024-11-27 10:15] LABS: Blood Urea Nitrogen 11 mg/dl (9-20); Calcium 8.3 mg/dl (8.4-10.2); Chloride 83 mmol/L (98-107); Estimated Creatinine Clearance 95 ml/min; Glucose 264 mg/dl (70-99); Potassium 3.9 mmol/L (3.5-5.1); Sodium 133 mmol/L (135-145); eGFR > 60.00
[2024-11-27] MEDS: LASIX 60 MG IV ×2 (10:23→15:32)
[2024-11-27] MEDS: GLUCOPHAGE 500 MG PO ×2 (10:24→17:41)
[2024-11-27] MEDS: JANUVIA 100 MG PO (10:24)
[2024-11-27 10:39] LABS: Carbon Dioxide 42 mmol/L (22-30)
[2024-11-27 11:38] LABS: Glucose - Point of Care 218 mg/dl (70-99)
[2024-11-27] MEDS: NOVOLOG FLEXPEN-LOW RESISTANCE 2 UNITS SC (11:55)
--- NOTE | 2024-11-27 12:47 | W.PN.HOSP.TC ---
Today's Communication/Plan
-
Continue IV diuretics
Continue aspirin and Eliquis
Trend CBC and BMP
Nightly NIPPV
SpO2 goal 88 to 94%
Assessment / Plan
Assessment / Plan
Mr. Nelson is a 74y M with severe COPD with chronic hypoxemic and hypercapnic respiratory failure (baseline 2-3 L via NC), ASCVD and paroxysmal AF who present ed as STEMI alert after being found unresponsive at home. Emergently cath with no
identifiable obstructive disease identified. Was found to be severely anemic and started with blood transfusion. Admitted for further evaluation and management.
#Acute on chronic hypoxemic and hypercapnic respiratory failure
-Multifactorial with COPD, pleural effusion, and decompensated heart failure; hypercapnia driven by COPD
-Initially appeared to be retaining CO2 based on ABG, now much improved after NIPPV HS
-Patient has sulfa allergy and so not able to tolerate acetazolamide for contraction alkalosis/hypercapnia
-Hypoxemia improving with IV diuretics for decompensated heart failure
-As of this morning SpO2 100% on 4 L via nasal cannula
-Not grossly hypervolemic though renal function stable on IV Lasix
Plan
-Continue IV Lasix twice daily, trend I's/O's + weights + BMP
-Continue to hold ACEi, consider resuming if hemodynamics allow
-Continue with NIPPV nightly for ventilation
-Continue with as needed bronchodilators and home Trelegy
-Clinical exam/x-ray for monitoring recurrence of pleural effusion
-SpO2 goal 88 to 94%
#Acute blood loss anemia
#Upper GI bleed due to gastric angiectasia
-Transfused a total of 4 units PRBCs transfused this admission; EGD s/p APC, Colonoscopy s/p 3 colon polyps removed
-Home medications include Eliquis and Plavix for his paroxysmal AF and history of PAD respectively
-Plavix was discontinued as of 11/20; Eliquis initially held but resumed as of this morning
-Was started on IV Protonix 40 mg daily and oral iron supplementation after admission
-Hemoglobin this morning stable, will continue to trend CBC on Eliquis
Plan
-Continue Protonix 40 mg PO
-Continue oral iron supplementation
-Trend CBC on Eliquis and aspirin
-Discontinued Plavix
-Hemoglobin goal >7
#Acute metabolic encephalopathy
-likely metabolic due to acute on chronic respiratory failure with hypercarbia, also contributed to by acute anemia requiring transfusions
-Continue NIPPV at night and with naps as tolerated, will need to continue after discharge
-Resolved
#Acute on chronic HFrecEF
-History of ischemic cardiomyopathy with reduced ejection fraction of 43%; most recent TTE with LVEF 50% and stage II diastology
-GDMT includes ACEi, beta-du, high intensity statin, ASA; previously on Plavix as well which was DC'd due to UGIB
-Home medications also include Lasix 60 mg twice daily for diuresis
-Was transitioned to IV Lasix due to decompensated heart failure
-Home lisinopril currently held due to hypotension
-See above for more detail
#Right pleural effusion
-Large right pleural effusion noted on chest imaging; s/p 1.9 L And likely transudative fluid
-Started on IV diuresis as above for decompensated heart failure
-Continue aggressive diuresis as above
#Abnormal EKG
#Elevated troponin
-Initial concern for STEMI with ST elevations and elevated troponin
-Emergent cardiac cath overnight 11/20-11/21 revealed no obstructive disease
-Elevated troponin nonischemic myocardial injury
-Continue aspirin and statin
#NIDDM
-Home medication includes metformin; no known history of microvascular disease
-Suspected diabetes is associated with his macrovascular disease (PAD)
-Metformin held on arrival, started on ISS with Accu-Cheks
-Blood glucose goal 140-180
#CAD s/p CABG (SHEEHAN to LAD)
#PAD s/p RLE bypass
-Home medication regimen included Plavix, high intensity statin, Eliquis for AF history
-Plavix was discontinued due to GI bleeding; now on statin, Eliquis, and aspirin
-No signs of arterial insufficiency at this time
-Initial concern for STEMI though negative cath as above
CODE STATUS: Full code
Anticipated Discharge: 24 - 48 hours
Subjective/Interval History
-
Date of Service: November 27, 2024
Seen and examined at the bedside. No acute events reported overnight. AFVSS with SpO2 100% on 4 L this morning.
Labs with stable hemoglobin as well as stable creatinine.
He states he feels generally well, denies any acute complaints
Objective Data
-
Labs:
Laboratory Results
11/27/24
09:05
WBC 9.0
Hgb 8.3 L
Hct 29.4 L
Plt Count 452 H
Sodium 133 L
Potassium 3.9
Chloride 83 L
Carbon Dioxide 42 H
BUN 11
Creatinine 0.7
Glucose 264 H
Calcium 8.3 L
Vital Signs:
Vital Signs
Temp Pulse Resp BP Pulse Ox
98.0 F 82 18 106/58 95
11/27/24 11:41 11/27/24 08:00 11/27/24 11:41 11/27/24 07:38 11/27/24 11:41
I&O
11/26/24 11/27/24 11/28/24
06:59 06:59 06:59
Intake Total 1830 / 1830 1310 / 1310
Output Total 3080 / 3080 4375 / 4375 1750 / 1750
Balance -1250 / -1250 -3065 / -3065 -1750 / -1750
Review of Systems
-
History Source: Patient
All other systems: Reviewed and negative
Physical Exam
-
General: Well Developed, Well Nourished, No Apparent Distress and Comfortable
HEENT: Normocephalic, Atraumatic, Moist Mucous Membranes and Oxygen
Respiratory: Rales (Bibasilar), Rhonchi (Left upper lung field), Non Labored Respirations and Decreased Breath Sounds; Negative Accessory Resp Muscle Use
Cardiac: Regular Rhythm and S1/S2; Negative Murmur, Rub or Gallop
GI: Soft, Nontender, Nondistended and Normal Bowel Sounds
Musculoskeletal: No Clubbing, No Cyanosis and No Edema
Skin: Warm, Dry and Normal Turgor; Negative Rash
Neuro: AO x 3 and Nonfocal/Grossly Intact; Negative Tremors
Psych: Calm
Data Reviewed
-
Labs: Labs Reviewed by me and Discussed with Patient
[2024-11-27 13:55] LABS: Anisocytosis 1+; Hypochromasia 1+; Macrocytosis 1+; Normal RBC Morphology No
[2024-11-27 13:56] LABS: Acanthocytes 1+; Stomatocytes 1+
--- NOTE | 2024-11-27 14:06 | CM ---
Reviewed chart. Met with Mr. Nelson to review discharge plans. He states he is uncomfortable and not happy with the food. We reviewed [facility] and he states he is current with [facility]. Received telephone call from his daughter, Ariane. She
states she has been trying to get him to go reside with her. She states she would be able to assist with medications and wound care. Reviewed with the idea of going to stay with her daughter for awhile until he is feeling better. At this time he
was not agreeable to this idea. Will review with him again. Currently he resides with his nephew in a second floor condo with twelve steps to enter. He is current with [facility]. Medical work-up in progress. The discharge plan is
to return home with his nephew, resumption of [facility] and NIV when medically stable.
[2024-11-27] MEDS: FERRLECIT 110 MG IV (14:16)
[2024-11-27] MEDS: LIPITOR 80 MG PO (17:41)
--- NOTE | 2024-11-27 18:00 | PTCARENOTE ---
Pt received this am with no c/o of any chest pain or sob. O2 on at 3LNC, sat 95%. Pt encouraged oob to the chair but refused until PT got him up. Taking Tylenol with relief for c/o of left lower leg pain.
[2024-11-27 18:31] LABS: Glucose - Point of Care 187 mg/dl (70-99)
[2024-11-27 18:51] LABS: Glucose - Point of Care 165 mg/dl (70-99)
[2024-11-27 22:06] LABS: Glucose - Point of Care 150 mg/dl (70-99)
--- NOTE | 2024-11-28 01:03 | PTCARENOTE ---
Received patient at change of shift. SR on the monitor, HR in the 70s. 95% on chronic 3L nasal cannula. Doppler used for pedal pulses. Wound dressings CDI. Pt complains of lower leg pain, PRN Tylenol administered as per DEC. Call liu within reach.
[2024-11-28 03:44] VITALS: BP 98/65
[2024-11-28 04:03] VITALS: BMI 25.4
[2024-11-28 05:09] LABS: Blood Urea Nitrogen 16 mg/dl (9-20); Calcium 8.6 mg/dl (8.4-10.2); Chloride 80 mmol/L (98-107); Estimated Creatinine Clearance 83 ml/min; Glucose 108 mg/dl (70-99); Potassium 4.4 mmol/L (3.5-5.1); Sodium 132 mmol/L (135-145); eGFR > 60.00
[2024-11-28 05:10] LABS: % Basophils 0.6 % (0-2); % Eosinophils 1.1 % (0-6); % Immature Granulocytes 0.4 % (0-0.5); % Lymphocytes 11.4 % (20.5-51.1); % Monocytes 9.7 % (1.7-9.3); % Neutrophils 76.8 % (42.2-75.2); Absolute Basophils 0.1 10^3/uL (0-0.2); Absolute Eosinophils 0.1 10^3/uL (0-0.7); Absolute Lymphocytes 1.2 10^3/uL (1.2-3.4); Hematocrit 30.9 % (39.0-52.0); Hemoglobin 8.7 g/dL (13.0-18.0); Mean Corp Hgb Conc. 28.2 g/dL (33.0-37.0); Mean Corpuscular Hgb 28.3 pg (27.0-31.0); Mean Corpuscular Volume 100.7 fL (80.0-94.0); Nucleated Red Blood Cells % 0.6 % (-); Platelet Count 519 10^3/uL (130-400); Red Blood Cell Count 3.07 10^6/uL (4.70-6.10); Red Cell Dist. Width 15.7 % (11.5-14.5); White Blood Cell Count 10.4 10^3/uL (4.8-10.8)
[2024-11-28 05:42] LABS: Carbon Dioxide 45 mmol/L (22-30)
[2024-11-28] MEDS: SYMBICORT 80/4.5 MCG INHALER 2 PUFF INH ×2 (07:17→20:40)
[2024-11-28] MEDS: SPIRIVA RESPIMAT 2.5 MCG 2 PUFF INH (07:17)
[2024-11-28 07:39] VITALS: BP 97/61
[2024-11-28 07:42] LABS: Glucose - Point of Care 116 mg/dl (70-99)
[2024-11-28] MEDS: JANUVIA 100 MG PO (08:10)
[2024-11-28] MEDS: ELIQUIS 5 MG PO ×2 (08:10→19:44)
[2024-11-28] MEDS: PROTONIX 40 MG PO (08:10)
[2024-11-28] MEDS: LOW STRENGTH ASPIRIN 81 MG PO (08:10)
[2024-11-28] MEDS: GLUCOPHAGE 500 MG PO ×2 (08:11→17:46)
[2024-11-28] MEDS: LASIX 60 MG IV ×2 (08:11→16:01)
[2024-11-28] MEDS: TOPROL XL 50 MG PO ×2 (08:11→19:44)
[2024-11-28] MEDS: PACERONE 200 MG PO (08:11)
[2024-11-28] MEDS: FLUSH (NSS) 1 FLUSH IV (08:13)
[2024-11-28] MEDS: TYLENOL 650 MG PO ×2 (08:17→20:15)
--- NOTE | 2024-11-28 08:19 | W.PN.PUL3 ---
Today's Communication / Plan
-
Patient is refusing to be on BiPAP during this hospitalization and does not want to be on BiPAP or NIV upon discharge as he is vehemently opposed
He remains at high risk for readmission for CO2 narcosis, which was explained to him today in layman's terms but he still is adamant that he does not want to be discharged home on it
We will discuss this as an outpatient as we possibly could have him see ENT for the Inspire device
Patient appears to be at baseline oxygen requirement
Goal SpO2 88-95%
Disposition efforts
No additional recommendations at this time. Pulmonary service will now sign off. Please reconsult if there are any additional questions/concerns, or if patient's respiratory status deteriorates.
Assessment
-
74-year-old man with multiple medical problems. Advanced COPD. Chronic hypercapnic and hypoxemic respiratory failure. Coronary artery disease post bypass, peripheral vascular disease, ongoing smoking, alcohol abuse disorder. Admitted through the
emergency room with change in mental status. Alert for possible ST myocardial infarction. Underwent cardiac catheterization that showed nonobstructive coronary artery disease. We were consulted on 11/21/2024 for evaluation of his chronic medical
problems.
Chronic hypercapnic respiratory failure-due to advanced COPD. Not in an acute exacerbation.
ABG 11/21/2024: 7.37/86/142
Acute abrupt onset of mental status change-back to baseline
Right pleural effusion: 11/21/2024 status post thoracentesis 1900 cc of clear pleural fluid.
Present since July 2024 based on chest x-ray.
EKG changes initially admitted as ST elevation myocardial infraction alert
Cardiac catheterization 11/21/2024: Nonobstructive coronary artery disease. Elevated LVEDP at 19.
-
# Lung nodule 7.4 mm on CAT scan January 2024-due for repeat CT. Request given 11/16/2024.
#Active tobacco smoker-ongoing
# Advanced COPD due to tobacco use not in an acute exacerbation
Chronic hypoxemic respiratory failure 2-3 L of supplemental oxygen.
On Trelegy
Last seen by Dr. Mckeon 11/16/2024
PFT 2022 - 1.43L 46%
#Paroxysmal A-fib/flutter on Eliquis
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
#CAD s/p CABG
#PAD with Hx of right femoral endarterectomy and femoral bypass
#DM type II (HbA1C: 7.5 on 08/19/2024)
Assessment and plan:
At this time, patient appears to be stable from pulmonary standpoint, oxygen weaned down to 3 L
Negative fluid status noted
Chest exam is clear
Last ABG 11/21/2024 -7.41/79/109
serum bicarbonate 40
he has been refusing BiPAP at night and is not interested in starting now or upon discharge and he was very adamant about this today
-
On his recent outpatient follow-up with me 11/16/2024: The plan was to transition him to nebulized therapy with Brovana/Pulmicort and Yupelri.(This is pending)
He has been using Trelegy. Currently on Spiriva and Symbicort while in the hospital.
-
Chronic hypercapnic respiratory failure/possible obstructive sleep apnea:
Avoid sedatives
His mental status is back to baseline
TSH was normal at 0.93 on 11/21/2024
UDS only positive for marijuana.
Alcohol level not detected
-
The plan also was to get a split-night study to start noninvasive mechanical ventilation.
It is unclear whether this patient can undergo a polysomnogram with mobility issues, transportation issues etc. This was discussed with the daughter.
Plan was to get the patient a noninvasive ventilator prior to discharge however the patient is adamantly refusing this.
This to be discussed further in the outpatient setting despite him being a high readmission risk due to risk of acute on chronic hypercapnia with CO2 narcosis, which the patient is aware of
Not sure how much more we can help with this scenario in the inpatient setting; we possibly could have him be evaluated by ENT for the Inspire device but again this is an outpatient evaluation
--
Right pleural effusion: It has been present since at least July 2024.
pH 7.61/white blood cells 178/88% mononuclears/total protein 3/LDH 98-suspect pseudo exudate as the patient has been getting diuretics.
With increased LVEDP suspect volume overload. proBNP 7000's.
Ultrasound of the abdomen 11/21/2024:Does not mention cirrhosis or portal hypertension.
-
Prior CT chest January 2024 showed no evidence for any pulmonary mass on the right. He has a groundglass pulmonary nodule that needs to be followed. He has a request for repeat CT chest given by me to him on 11/16/2024.
Doubt malignant or infectious in etiology-pleural fluid culture negative. Cytology pending from 11/21/2024.
Unable to tolerate Diamox due to sulfa allergy.
Continue Lasix per cardiology and primary team (currently on 60 mg IV BID)
Follow BMP and electrolytes. Replete as necessary-per primary team.
-
Macrocytic anemia-possibly related to alcohol. Hemoglobin of 6.1 on 11/23/2024. New development since late last year on anticoagulation.
Patient is on Eliquis/Plavix--> Eliquis resumed as of 11/26/2024; Plavix currently on hold
Transfuse as necessary. --> Has received 4 units PRBCs since admission, last given on 11/23/2024
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
polyps throughout with 3 of them removed and diverticulosis in the left colon
GI following
-
DVT prophylaxis: Eliquis resumed on 11/26/2024
-
Dr. Mckeon updated daughter Ariane over the phone 11/23/2024.
Given multiple comorbidities including advanced COPD - Dr. Mckeon discussed with daughter on 11/16/2024 about advanced directives - he remains full code
Follow-up with Dr. Mckeon as previously scheduled after discharge -appointment scheduled for 01/05/2025 at 11:45 AM, and he was encouraged to keep this appointment
-
No additional recommendations at this time. Pulmonary service will now sign off. Thank you for allowing us to be involved in the care of this patient. Please reconsult if there are any additional questions/concerns, or if patient's respiratory
status deteriorates.
Total time spent today was 39 minutes for this encounter. Time includes reviewing laboratory test/imaging results, reviewing pertinent medical records, obtaining and reviewing medical history, performing an appropriate exam, ordering medications,
tests and procedures. Time also includes documentation of this encounter, coordinating patient care and communicating with other healthcare professionals. Total time does not include separately billed tests performed on this date of service.
Subjective Data
-
Date of Service:
Date of Service: November 28, 2024
Chief Complaint: Pulmonary Follow Up (Chronic hypercapnic respiratory failure. Shortness of breath.)
Subjective:
Patient was seen and evaluated today at bedside. He is refusing BiPAP and does not think that he will use it if we try to get it for him at home. Currently saturating 96% on 3 L/min with heart rate 71 and BP 97/61. He denies chest pain, KENNY,
nausea, fevers or chills. He is very eager to be leaving the hospital as soon as possible.
Review of Systems
General: Other (Negative unless mentioned above)
Objective Data
Data Reviewed
Vital Signs / I&O / Oxygen:
Vital Signs
Temp Pulse Resp BP Pulse Ox
97.9 F 69 16 98/65 92
11/28/24 03:50 11/28/24 07:25 11/28/24 07:25 11/28/24 03:44 11/28/24 07:25
Intake and Output
11/27/24 11/28/24 11/29/24
06:59 06:59 06:59
Intake Total 1310 / 1310 600 / 600
Output Total 4375 / 4375 3350 / 3350
Balance -3065 / -3065 -2750 / -2750
SaO2 92
Nasal Cannula flow liters per 3
minute
Physical Exam
General: Respiratory Distress (n), Comfortable, Chills (n) and Sweats (n)
HEENT: Normocephalic and Anicteric
Cardiovascular: S1-S2 and Peripheral Edema (negative)
Respiratory: Wheeze (n), Crackles (Bibasilar), Rhonchi (n) and Non-Labored Respirations
GI: Soft, Non Distended and Normal Bowel Sounds
Neurology: AO x 3 and Tremors (n)
Skin: Warm, Dry, Cyanosis (n), Jaundice (n) and Rash (n)
Labs/Micro/Reports
Lab Data
11/28/24 03:52
11/28/24 03:52
--- NOTE | 2024-11-28 08:30 | PN.DE.MGMTRT ---
Insulin Management
- -
11/28/2024: Diabetes Management Consult Follow up
Patient admitted 11/21 found unresponsive at home, out of hospital STEMI alert. PMH: CAD s/p remote CABG at [facility] , Acute on chronic HFpEF, severe COPD with chronic hypoxemic and hypercapnic respiratory failure, PA-Fib/flutter on OAC, HTN, HLD, h/o
CVA 2010, PAD s/p right femoral endarterectomy with saphenous vein angioplasty and right femoral to PT bypass 07/1123, Osteomyelitis toe, Acute macrocytic anemia, Hgb on admission 6.1, Ongoing tobacco use, h/o bedbugs 06/17 admission, Pleural
effusion s/p right sided thora for 1.9 L 11/21/24, Melena and T2DM.
He underwent cardiac cath that showed no obstructive disease. Was found to be severely anemic and treated with blood transfusion.
Prior to admission was taking metformin 500 mg BID. Current A1C 5.1%, was 7.6% on 08/19/2024. Cr 0.8, eGFR >60.
Pt awake, alert, oriented, sitting up in bed, offers no complaints, able to discuss diabetes plan of care.
2/3 Glucose range 150 to 218. Januvia 100 mg daily added to regimen. FBG 108 this AM.
Will make no change to current regimen.
Discussed with nurse.
Will follow.
Pt states he has a working meter that he recently obtained through his PCP and is comfortable checking his blood sugars at home.
Diabetes History
- -
Type of Diabetes: 2
Pre-Admission Diabetes Regimen
11/27/24 11/28/24
09:05 03:52
Creatinine 0.7 0.8
Lab Results
Hemoglobin A1c 5.1 % (4.0-5.6) 11/21/24 09:17
Insulin Pump Settings
IP Diabetes Regimen
11/27/24 11/27/24 11/27/24
09:05 11:37 18:25
Glucose 264 H
POC Glucose 218 H 187 H
11/27/24 11/27/24 11/28/24
18:50 22:04 03:52
Glucose 108 H
POC Glucose 165 H 150 H
11/28/24
07:41
Glucose
POC Glucose 116 H
Meal type: Dinner
Amount consumed: 100%
Patient Education
--- NOTE | 2024-11-28 08:34 | W.PN.CARDCBS ---
Addendum entered and electronically signed by Edward Moya MD 11/28/24 09:55:
I saw and examined the patient.
The Audio Visual Collections Coordinator's note was reviewed and I agree with the note.
Comment:
GEN: No distress, awake, Ox3
HEENT: supple, anicteric, mmm
LUNGS: bilat rhonchi
CV: Reg, S1/S2, 10/30 syst LSB, no gallop
ABD: soft, BS+, NT/ND
EXT: trace edema
NEURO: Gross non-focal
SKIN: No rash
Plan:
Hemoglobin stable at 8-9. Continue Eliquis alone. Stop antiplatelet therapy.
Will continue to diurese for another 24 hours with Lasix 60 IV twice daily. Creatinine overall stable.
Continue amiodarone. He remains in sinus rhythm.
Cardiac cath reviewed which revealed nonobstructive CAD and no clear culprit lesion. Continue medical therapy for CAD history of CABG.
Continue atorvastatin, metoprolol, and Eliquis.
Smoking cessation.
Original Note:
Today's Communication / Plan
-
Cont Lasix 60 mg IV BID, below previous dry weight, stable Cre, now on RA
Plavix stopped without plans to restart
Eliquis resumed and Hgb stable
Impression / Plan
-
Affiliate Marketing Specialist: Dr Riggs
Impression:
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
Out of hospital STEMI alert 11/21/2024
no evidence of culprit lesion by cardiac cath to explain patient's presentation 11/13/2024
Elevated Troponin
CAD
s/p remote CABG at [facility] with SHEEHAN to LAD
PCI with unclear details at [place]
Acute macrocytic anemia, Hgb on admission 6.1
Melena
Acute on chronic HFpEF
History of CVA 2010
Paroxysmal atrial fibrillation/flutter
Chronic Eliquis OAC
Chronic amiodarone therapy
PAD
s/p right femoral endarterectomy with saphenous vein angioplasty and right femoral to PT bypass 07/1123
chronic Plavix therapy
Poor medical compliance
Osteomyelitis toe
COPD
HTN
HLD
DM2
Hep C, treated and cleared infection
Ongoing tobacco use
h/o bedbugs 05/2024 admission
Pleural effusion
s/p right sided thora for 1.9 L 11/21/24
Dobutamine nuclear stress test 07/29/23 finds large inferior and basal inferior septal infarct without stephanie-infarct ischemia. Baseline LVEF 43%
Echo 07/28/23 finds normal LV size and function with LVEF in the low normal range estimated at 51% with basal to mid inferior wall severe hypokinesis. No significant valvular disease.
Echo 06/12/2024: EF 50%, basal inferior wall hypokinetic on parasternal short axis views, RV mildly dilated, mildly dilated RA, no significant valvular disease noted
Echo 11/13/2024: EF 50%, stage II diastolic dysfunction, trace MR, mild TR with PAP 44 mmHg no
Echo 11/21/2024: Ejection fraction 50%, basal inferior akinesis, mild TR, PA systolic 44 mmHg, enlarged right ventricle with right ventricular hypokinesis
Cardiac catheterization 11/21/2024
LM: Large with mild disease
LAD: Large vessel that is proximally occluded within stent just after the takeoff of a large septal with the mid to distal vessel filled by patent SHEEHAN to LAD.
LCx: Large vessel with mild to moderate nonobstructive disease including a 50% stenosis in the mid body of the OM2
RCA: The proximal to distal vessel contains overlapping stents with mild ISR. There is a small region of haziness in the distal vessel as well as in the bifurcation of the distal RCA and RPDA/RPAV. This like represents eccentric atherosclerotic
plaque. There is DIMITRI-3 flow distally.
BYPASS GRAFT ANGIOGRAPHY:
SHEEHAN-LAD: the SHEEHAN is taken as a pedicle and forms an anastomosis with the mid-LAD.
There are clips on the right side of the aorta possible suggestive of an additional bypass graft. Non selective aortogram was performed and did not demonstrate presence of additional patent grafts.
Plan:
-Patient came to ER on 11/21/24 as a prehospital STEMI alert and was taken to the chemical laboratory tester by Dr. Campbell where he was found to have no evidence of culprit lesion to explain presentation or ECG changes. Troponin peaked at 0.086.
-EF stable by echo at 50%.
-Weight is down 5 lbs from peak weight this admission. Patient weighs 171 lbs on 11/28/24 which is below any previous dry weight on record at . Patient diuresed with Lasix 60 mg IV BID this admission. Patient was supposed to be taking Lasix 60 mg
BID prior to admission, but unclear if he was actually doing this.
-Outpatient dose of Toprol XL 50 mg BID has been continued
-Outpatient dose of lisinopril 40 mg daily was stopped due to hypotension
-Patient also with 1.9 L out by right sided thoracentesis 11/13/2024.
-Hgb 6.1 on admission and patient received a total of 4 units of PRBCs. Patient is macrocytic. GI signed off after EGD and colonoscopy 11/24/24. He had 1 angioectasia and 3 polyps.
-Outpatient dose of Eliquis 5 mg BID (age 74, wt 77.9, Cre 0.8) was held during GIB work-up, but resumed since 11/26/24.
-Patient with known paroxysmal Afib. Tele looks like SR.
-Cont amiodarone 200 mg daily. QTc 437 ms by ECG 12/13/24
-Outpatient dose of Plavix is for h/o RLE bypass 07/2023 and this has been stopped without plans to restart due to GIB.
HPI: This is a 74-year-old man with multiple medical conditions including coronary artery disease status post distant CABG, who presents with loss of consciousness and lateral ST elevations on initial EKG. Given his history and findings the Cath
Lab was activated for emergent coronary angiography which did not reveal a culprit to explain his presentation. Relevant findings include a new large right pleural effusion and new severe anemia with hemoglobin of 6 from prior baseline of 12. 2
units of blood were ordered. The patient will be admitted to the hospitalist service for further workup and management with cardiology following. Administered 2 units of blood and trend hemoglobin. Further workup to determine cause of anemia.
For now, would hold Eliquis and Plavix while working up cause of anemia.
Resume patient's home diuretic regimen, but hold additional GDMT for now given mild hypotension until hemodynamics allow restart.
Progress Note - Affiliate Marketing Specialist
Subjective
Date of Service: November 28, 2024
He feels well, increased urinary urge after this morning's dose of Lasix 60 mg IV BID
Objective
Labs:
11/28/24 03:52
11/28/24 03:52
Labs
Hgb 8.7 g/dL (13.0-18.0) L 11/28/24 03:52
Hct 30.9 % (39.0-52.0) L 11/28/24 03:52
Plt Count 519 10^3/uL (130-400) H 11/28/24 03:52
PT 17.1 Sec (11.4-14.6) H 11/21/24 09:17
INR 1.37 11/21/24 09:17
APTT 25.1 Sec (23.4-35.0) 11/21/24 01:32
Sodium 132 mmol/L (135-145) L 11/28/24 03:52
Potassium 4.4 mmol/L (3.5-5.1) 11/28/24 03:52
BUN 16 mg/dl (9-20) 11/28/24 03:52
Creatinine 0.8 mg/dL (0.7-1.3) 11/28/24 03:52
Glucose 108 mg/dl (70-99) H 11/28/24 03:52
Vital Signs and I&O:
Vital Signs
Temp Pulse Resp BP Pulse Ox
97.9 F 69 16 98/65 92
11/28/24 03:50 11/28/24 07:25 11/28/24 07:25 11/28/24 03:44 11/28/24 07:25
Vital Signs
Temp Pulse Resp BP Pulse Ox
97.9 F 69 16 98/65 92
11/28/24 03:50 11/28/24 07:25 11/28/24 07:25 11/28/24 03:44 11/28/24 07:25
Intake & Output
11/26/24 11/27/24 11/28/24 11/29/24
06:59 06:59 06:59 06:59
Intake Total 1830 / 1830 1310 / 1310 600 / 600
Output Total 3080 / 3080 4375 / 4375 3350 / 3350
Balance -1250 / -1250 -3065 / -3065 -2750 / -2750
Physical Exam
Physical Exam
GEN: NAD
HEENT: mmm
LUNGS: RA. No audible wheeze
CV: SR on tele
ABD: ND
EXT: Trace B/L LE edema
NEURO: Gross non-focal
SKIN: No rash
[2024-11-28] MEDS: NOVOLOG FLEXPEN-LOW RESISTANCE SC ×2 (09:55→17:46)
[2024-11-28 12:09] VITALS: BP 97/60
[2024-11-28 12:11] LABS: Glucose - Point of Care 161 mg/dl (70-99)
[2024-11-28] MEDS: NOVOLOG FLEXPEN-LOW RESISTANCE 300 UNITS SC (12:15)
--- NOTE | 2024-11-28 13:16 | W.PN.HOSP.TC ---
Today's Communication/Plan
-
Discontinue aspirin
Trend CBC on Eliquis
Continue IV Lasix
Consider acetazolamide
Trend BMP
Assessment / Plan
Assessment / Plan
#Acute on chronic hypoxemic and hypercapnic respiratory failure
-Multifactorial with COPD, pleural effusion, and decompensated heart failure; hypercapnia driven by COPD
-Initially appeared to be retaining CO2 based on ABG, now much improved after NIPPV HS
-Patient has sulfa allergy and so not able to tolerate acetazolamide for contraction alkalosis/hypercapnia
-Hypoxemia improving with IV diuretics for decompensated heart failure
-As of this morning SpO2 100% on 3 L via nasal cannula
-Not grossly hypervolemic though renal function stable on IV Lasix
Plan
-Continue IV Lasix twice daily, trend I's/O's + weights + BMP
-Consider a dose of acetazolamide for additional diuresis with his hypercapnia
-Continue to hold ACEi; consider resuming or switching to SGLT2i
-Continue with NIPPV nightly for ventilation
-Continue with as needed bronchodilators and home Trelegy
-Clinical exam/x-ray for monitoring recurrence of pleural effusion
-SpO2 goal 88 to 94%
#Acute blood loss anemia
#Upper GI bleed due to gastric angiectasia
-Transfused a total of 4 units PRBCs transfused this admission; EGD s/p APC, Colonoscopy s/p 3 colon polyps removed
-Home medications include Eliquis and Plavix for his paroxysmal AF and history of PAD respectively
-Plavix was discontinued as of 11/20; Eliquis initially held but resumed as of this morning
-Was started on IV Protonix 40 mg daily and oral iron supplementation after admission
-Hemoglobin this morning stable
Plan
-Continue Protonix 40 mg PO
-Continue oral iron supplementation
-Trend CBC on Eliquis; no longer on Plavix or aspirin
-Hemoglobin goal >7
#Acute metabolic encephalopathy
-likely metabolic due to acute on chronic respiratory failure with hypercarbia, also contributed to by acute anemia requiring transfusions
-Continue NIPPV at night and with naps as tolerated, will need to continue after discharge
-Resolved
#Acute on chronic HFrecEF
-History of ischemic cardiomyopathy with reduced ejection fraction of 43%; most recent TTE with LVEF 50% and stage II diastology
-GDMT includes ACEi, beta-du, high intensity statin, ASA; previously on Plavix as well which was DC'd due to UGIB
-Home medications also include Lasix 60 mg twice daily for diuresis
-Was transitioned to IV Lasix due to decompensated heart failure
-Home lisinopril currently held due to hypotension
-See above for more detail
#Right pleural effusion
-Large right pleural effusion noted on chest imaging; s/p 1.9 L And likely transudative fluid
-Started on IV diuresis as above for decompensated heart failure
-Continue aggressive diuresis as above
#Abnormal EKG
#Elevated troponin
-Initial concern for STEMI with ST elevations and elevated troponin
-Emergent cardiac cath overnight 11/20-11/21 revealed no obstructive disease
-Elevated troponin nonischemic myocardial injury
-Continue aspirin and statin
#NIDDM
-Home medication includes metformin; no known history of microvascular disease
-Suspected diabetes is associated with his macrovascular disease (PAD)
-Metformin held on arrival, started on ISS with Accu-Cheks
-Blood glucose goal 140-180
#CAD s/p CABG (SHEEHAN to LAD)
#PAD s/p RLE bypass
-Home medication regimen included Plavix, high intensity statin, Eliquis for AF history
-Plavix was discontinued due to GI bleeding; now on statin, Eliquis, and aspirin
-No signs of arterial insufficiency at this time
-Initial concern for STEMI though negative cath as above
CODE STATUS: Full code
Anticipated Discharge: 24 - 48 hours
Subjective/Interval History
-
Date of Service: November 28, 2024
Seen and examined at the bedside. No acute events reported overnight. AFVSS on baseline oxygen
Hemoglobin stable. Renal function also stable.
He is frustrated at the fluid restriction though denies any new complaints.
Objective Data
-
Labs:
Laboratory Results
11/28/24
03:52
WBC 10.4
Hgb 8.7 L
Hct 30.9 L
Plt Count 519 H
Sodium 132 L
Potassium 4.4
Chloride 80 L
Carbon Dioxide 45 H
BUN 16
Creatinine 0.8
Glucose 108 H
Calcium 8.6
Vital Signs:
Vital Signs
Temp Pulse Resp BP Pulse Ox
97.7 F 69 18 98/65 94
11/28/24 12:18 11/28/24 07:25 11/28/24 12:18 11/28/24 03:44 11/28/24 12:18
I&O
11/27/24 11/28/24 11/29/24
06:59 06:59 06:59
Intake Total 1310 / 1310 600 / 600
Output Total 4375 / 4375 3350 / 3350 300 / 300
Balance -3065 / -3065 -2750 / -2750 -300 / -300
Review of Systems
-
History Source: Patient
All other systems: Reviewed and negative
Physical Exam
-
General: Well Developed, Well Nourished, No Apparent Distress, Comfortable and Appears Chronically Ill
HEENT: Normocephalic, Atraumatic, Moist Mucous Membranes and Oxygen
Respiratory: Rhonchi (Left upper lung field) and Non Labored Respirations; Negative Accessory Resp Muscle Use
Cardiac: Regular Rhythm and S1/S2; Negative Murmur, Rub, JVD or Gallop
GI: Soft, Nontender, Nondistended and Normal Bowel Sounds
Musculoskeletal: No Clubbing, No Cyanosis and No Edema
Skin: Warm, Dry and Normal Turgor; Negative Rash
Neuro: AO x 3 and Nonfocal/Grossly Intact
Psych: Calm
Data Reviewed
-
Labs: Labs Reviewed by me and Discussed with Patient
[2024-11-28] MEDS: FERRLECIT 110 MG IV (14:01)
--- NOTE | 2024-11-28 14:11 | CM ---
Reviewed chart. Met with Mr. Nelson to review discharge plans. He states he is feeling better. We reviewed again about going to stay with his daughter. He states he is not sure he wants to go stay with his daughter. He resides with his nephew
in a second floor condo.He has twelve steps to enter the condo. He has home 02 at 3 liters with [employer]. [facility] states they are ready to deliver Bi-pap Machine at his home when the discharge
date is known. He is current with [facility]. Medical work-up in progress. The discharge plan is to return home with his nephew and resumption of [facility] when medically stable.
[2024-11-28 16:13] VITALS: BP 124/71
[2024-11-28 17:39] LABS: Glucose - Point of Care 121 mg/dl (70-99)
[2024-11-28] MEDS: LIPITOR 80 MG PO (17:46)
--- NOTE | 2024-11-28 18:00 | PTCARENOTE ---
Pt received this am with no c/o of any sob. O2 on at 3LNC, sat 95%. Refused to get oob for breakfast but did get oob later and tolerated for 1 hr. Gait steady with assist to the BR.
[2024-11-28 19:37] VITALS: BP 109/64
[2024-11-28 23:29] VITALS: BP 106/56
[2024-11-28] MEDS: MELATONIN 5 MG PO (23:29)
[2024-11-28 23:46] LABS: Glucose - Point of Care 192 mg/dl (70-99)
--- NOTE | 2024-11-28 23:54 | PTCARENOTE ---
Received patient at change of shift. SR on the monitor, HR in the 60s. 94% on 3L chronic nasal cannula. Pedal pulses present with Doppler. Pt complains of pain in L heel. Heel placed on pillow and PRN Tylenol administered as per DEC. Empty full size
pack of M&M candy seen in the trash can in in pts room. Discussed the importance of following his 1800 layla diabetic diet. Pt reports 'I am a grown man and I can have M&Ms if I want to.' Pt requests melatonin to help him sleep, order obtained and
administered as per DEC. Call liu within reach.
[2024-11-29] VITALS (11 sets, daily range): BP systolic 58–110; BP diastolic 45–67; PULSE 58; O2SAT 100; BMI 25.1
[2024-11-29 02:31] LABS: % Basophils 0.4 % (0-2); % Eosinophils 0.7 % (0-6); % Immature Granulocytes 0.5 % (0-0.5); % Lymphocytes 10.2 % (20.5-51.1); % Monocytes 8.2 % (1.7-9.3); Absolute Eosinophils 0.1 10^3/uL (0-0.7); Absolute Immature Granulocytes 0.1 10^3/uL (0-0.05); Absolute Monocytes 0.8 10^3/uL (0.1-0.6); Absolute Neutrophils 7.8 10^3/uL (1.4-6.5); Hematocrit 31.3 % (39.0-52.0); Mean Corp Hgb Conc. 28.8 g/dL (33.0-37.0); Mean Corpuscular Hgb 28.8 pg (27.0-31.0); Mean Platelet Volume 9.9 fL (7.4-10.4); Nucleated Red Blood Cells % 0.3 % (-); Platelet Count 573 10^3/uL (130-400); Red Blood Cell Count 3.13 10^6/uL (4.70-6.10); Red Cell Dist. Width 15.7 % (11.5-14.5); White Blood Cell Count 9.8 10^3/uL (4.8-10.8)
[2024-11-29 02:58] LABS: Blood Urea Nitrogen 19 mg/dl (9-20); Calcium 8.9 mg/dl (8.4-10.2); Chloride 80 mmol/L (98-107); Estimated Creatinine Clearance 74 ml/min; Glucose 133 mg/dl (70-99); Potassium 4.4 mmol/L (3.5-5.1); Sodium 132 mmol/L (135-145); eGFR > 60.00
[2024-11-29 03:18] LABS: Carbon Dioxide 42 mmol/L (22-30)
[2024-11-29] MEDS: SPIRIVA RESPIMAT 2.5 MCG 2 PUFF INH (07:01)
[2024-11-29] MEDS: SYMBICORT 80/4.5 MCG INHALER 2 PUFF INH ×2 (07:01→20:17)
[2024-11-29 07:57] LABS: Glucose - Point of Care 155 mg/dl (70-99)
--- NOTE | 2024-11-29 08:09 | PN.DE.MGMTRT ---
Insulin Management
- -
11/29/2024: Diabetes Management Consult Follow up
Patient admitted 11/21 found unresponsive at home, out of hospital STEMI alert. PMH: CAD s/p remote CABG at [facility] , Acute on chronic HFpEF, severe COPD with chronic hypoxemic and hypercapnic respiratory failure, PA-Fib/flutter on OAC, HTN, HLD, h/o
CVA 2010, PAD s/p right femoral endarterectomy with saphenous vein angioplasty and right femoral to PT bypass 07/1123, Osteomyelitis toe, Acute macrocytic anemia, Hgb on admission 6.1, Ongoing tobacco use, h/o bedbugs 06/17 admission, Pleural
effusion s/p right sided thoracentesis for 1.9 L 11/21/24, Melena and T2DM.
He underwent cardiac cath that showed no obstructive disease. Was found to be severely anemic and treated with blood transfusion.
Prior to admission was taking metformin 500 mg BID. Current A1C 5.1%, was 7.6% on 08/19/2024. Cr 0.8, eGFR >60.
Pt awake, alert, oriented, sitting up in bed, offers no complaints, able to discuss diabetes plan of care. Nurse noted M&M empty package in patients room last evening. Today jumbo size peanut butter cups, M&Ms full size bag and regular coke.
Discussed with patient impact of candy and regular soda on glucose. Respectfully stated that he does have the right to have those but that his glucose was up to 192. He stated: 'I do like sweets now and then I guess I could cut back a little'.
Agreed with patient that would be best. Discussed with patient the addition of Farxiga and benefits of medication. Cost 0$ first month then $4.90 per month, he is agreeable.
11/29 Cr .9, eGFR > 60, HGB improved - 9, Glucose range 11/28: 108 to 192. Will continue metformin 500 mg BID with Januvia 100 mg daily and add Farxiga 10 mg to regimen. FBG 155 this AM.
Discussed with nurse.
Will follow.
Pt states he has a working meter that he recently obtained through his PCP and is comfortable checking his blood sugars at home.
Diabetes History
- -
Type of Diabetes: 2
Pre-Admission Diabetes Regimen
11/29/24
02:01
Creatinine 0.9
Lab Results
Hemoglobin A1c 5.1 % (4.0-5.6) 11/21/24 09:17
Insulin Pump Settings
IP Diabetes Regimen
11/28/24 11/28/24 11/28/24
12:10 17:37 23:45
Glucose
POC Glucose 161 H 121 H 192 H
11/29/24 11/29/24
02:01 07:57
Glucose 133 H
POC Glucose 155 H
Meal type: Lunch
Meal type: Breakfast
Amount consumed: 100%
Amount consumed: 100%
Patient Education
[2024-11-29] MEDS: PACERONE 200 MG PO (08:28)
[2024-11-29] MEDS: ELIQUIS 5 MG PO ×2 (08:28→20:24)
[2024-11-29] MEDS: PROTONIX 40 MG PO (08:28)
[2024-11-29] MEDS: JANUVIA 100 MG PO (08:29)
[2024-11-29] MEDS: LASIX 60 MG IV (08:29)
[2024-11-29] MEDS: FARXIGA 10 MG PO (08:32)
[2024-11-29] MEDS: TOPROL XL 50 MG PO ×2 (08:32→20:24)
[2024-11-29] MEDS: GLUCOPHAGE 500 MG PO ×2 (08:32→17:01)
[2024-11-29] MEDS: TYLENOL 650 MG PO ×2 (08:36→20:39)
[2024-11-29] MEDS: NOVOLOG FLEXPEN-LOW RESISTANCE 1 UNITS SC ×2 (08:40→17:02)
--- NOTE | 2024-11-29 09:13 | PTCARENOTE ---
rec'd pt this shift awake and alert in bed. Pt denies pain, denies sob. 3l n/c oxygen. Pulse ox 98%. AM meds given. See worklist for VS/I and O and assessments.
--- NOTE | 2024-11-29 09:29 | W.PN.CARDCBS ---
Addendum entered and electronically signed by Edward Moya MD 11/29/24 12:14:
I saw and examined the patient.
The Sanitary Landfill Operator's note was reviewed and I agree with the note.
Comment:
GEN: No distress, awake, Ox3
HEENT: supple, anicteric, mmm
LUNGS: scatt rhonchi
CV: Reg, S1/S2, 1/6 syst LSB, no gallop
ABD: soft, BS+, NT/ND
EXT: No edema
NEURO: Gross non-focal
SKIN: No rash
Plan:
Clinically he is improving. Plan for possible thoracentesis of right effusion.
Will increase Lasix to 80 mg p.o. twice daily.
Continue medical therapy for CAD. Continue Toprol, atorvastatin, and Eliquis.
Hemoglobin at 9.0. Would remain off antiplatelet therapy.
Addendum entered and electronically signed by Adina Tapia PA-C 11/29/24 11:55:
Recurrent at least moderate size right pleural effusion by CXR 11/29/2024. Plan is for repeat thoracentesis and so D/C is deferred. Will increase Lasix to 80 mg PO BID starting this evening
Original Note:
Today's Communication / Plan
-
Changing to Lasix 60 mg PO BID starting this afternoon
Impression / Plan
-
Dr. Modesta Pretty
Assistant Chief Nursing Officer: Dr Riggs
Impression:
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
Out of hospital STEMI alert 11/21/2024
no evidence of culprit lesion by cardiac cath to explain patient's presentation 11/13/2024
Elevated Troponin
CAD
s/p remote CABG at [facility] with SHEEHAN to LAD
PCI with unclear details at [place]
Acute macrocytic anemia, Hgb on admission 6.1
Melena
Acute on chronic HFpEF
History of CVA 2010
Paroxysmal atrial fibrillation/flutter
Chronic Eliquis OAC
Chronic amiodarone therapy
PAD
s/p right femoral endarterectomy with saphenous vein angioplasty and right femoral to PT bypass 07/1123
chronic Plavix therapy
Poor medical compliance
Osteomyelitis toe
COPD
HTN
HLD
DM2
Hep C, treated and cleared infection
Ongoing tobacco use
h/o bedbugs 05/2024 admission
Pleural effusion
s/p right sided thora for 1.9 L 11/21/24
Dobutamine nuclear stress test 07/29/23 finds large inferior and basal inferior septal infarct without stephanie-infarct ischemia. Baseline LVEF 43%
Echo 07/28/23 finds normal LV size and function with LVEF in the low normal range estimated at 51% with basal to mid inferior wall severe hypokinesis. No significant valvular disease.
Echo 06/12/2024: EF 50%, basal inferior wall hypokinetic on parasternal short axis views, RV mildly dilated, mildly dilated RA, no significant valvular disease noted
Echo 11/13/2024: EF 50%, stage II diastolic dysfunction, trace MR, mild TR with PAP 44 mmHg no
Echo 11/21/2024: Ejection fraction 50%, basal inferior akinesis, mild TR, PA systolic 44 mmHg, enlarged right ventricle with right ventricular hypokinesis
Cardiac catheterization 11/21/2024
LM: Large with mild disease
LAD: Large vessel that is proximally occluded within stent just after the takeoff of a large septal with the mid to distal vessel filled by patent SHEEHAN to LAD.
LCx: Large vessel with mild to moderate nonobstructive disease including a 50% stenosis in the mid body of the OM2
RCA: The proximal to distal vessel contains overlapping stents with mild ISR. There is a small region of haziness in the distal vessel as well as in the bifurcation of the distal RCA and RPDA/RPAV. This like represents eccentric atherosclerotic
plaque. There is DIMITRI-3 flow distally.
BYPASS GRAFT ANGIOGRAPHY:
SHEEHAN-LAD: the SHEEHAN is taken as a pedicle and forms an anastomosis with the mid-LAD.
There are clips on the right side of the aorta possible suggestive of an additional bypass graft. Non selective aortogram was performed and did not demonstrate presence of additional patent grafts.
Plan:
-Weight is down another 2 lbs overnight for a weight of 169 lbs on 11/29/2024 which is lower than any previous dry weight for patient. Cre stable. Intermittent hypotension. Will transition to Lasix 60 mg PO BID starting 11/29/24 PM. Patient was supposed
to be taking Lasix 60 mg BID prior to admission, but unclear if he was actually doing this.
-EF stable by echo at 50%.
-Outpatient dose of Toprol XL 50 mg BID has been continued
-Outpatient dose of lisinopril 40 mg daily was stopped due to hypotension
-Patient also with 1.9 L out by right sided thoracentesis 11/13/2024.
-Patient came to ER on 11/21/24 as a prehospital STEMI alert and was taken to the receiver/laborer by Dr. Campbell where he was found to have no evidence of culprit lesion to explain presentation or ECG changes. Troponin peaked at 0.086. Patient managed as
a nonischemic myocardial injury Troponin elevation based on receiver/laborer findings and clinical picture of acute anemia.
-Hgb 6.1 on admission and patient received a total of 4 units of PRBCs. Patient is macrocytic. GI signed off after EGD and colonoscopy 11/24/24. He had 1 angioectasia and 3 polyps.
-Outpatient dose of Eliquis 5 mg BID (age 74, wt 77.9, Cre 0.8) was held during GIB work-up, but resumed since 11/26/24.
-Patient with known paroxysmal Afib. Tele looks like SR.
-Cont amiodarone 200 mg daily. QTc 437 ms by ECG 12/13/24
-Outpatient dose of Plavix is for h/o RLE bypass 07/2023 and this has been stopped without plans to restart due to GIB.
-Cardiology follow up arranged. Agree with VN.
HPI: This is a 74-year-old man with multiple medical conditions including coronary artery disease status post distant CABG, who presents with loss of consciousness and lateral ST elevations on initial EKG. Given his history and findings the Cath
Lab was activated for emergent coronary angiography which did not reveal a culprit to explain his presentation. Relevant findings include a new large right pleural effusion and new severe anemia with hemoglobin of 6 from prior baseline of 12. 2
units of blood were ordered. The patient will be admitted to the hospitalist service for further workup and management with cardiology following. Administered 2 units of blood and trend hemoglobin. Further workup to determine cause of anemia.
For now, would hold Eliquis and Plavix while working up cause of anemia.
Resume patient's home diuretic regimen, but hold additional GDMT for now given mild hypotension until hemodynamics allow restart.
Progress Note - Assistant Chief Nursing Officer
Subjective
Date of Service: November 29, 2024
He is asking about going home, denies chest pain
Objective
Labs:
11/29/24 02:01
11/29/24 02:01
Labs
Hgb 9.0 g/dL (13.0-18.0) L 11/29/24 02:01
Hct 31.3 % (39.0-52.0) L 11/29/24 02:01
Plt Count 573 10^3/uL (130-400) H 11/29/24 02:01
PT 17.1 Sec (11.4-14.6) H 11/21/24 09:17
INR 1.37 11/21/24 09:17
APTT 25.1 Sec (23.4-35.0) 11/21/24 01:32
Sodium 132 mmol/L (135-145) L 11/29/24 02:01
Potassium 4.4 mmol/L (3.5-5.1) 11/29/24 02:01
BUN 19 mg/dl (9-20) 11/29/24 02:01
Creatinine 0.9 mg/dL (0.7-1.3) 11/29/24 02:01
Glucose 133 mg/dl (70-99) H 11/29/24 02:01
Vital Signs and I&O:
Vital Signs
Temp Pulse Resp BP Pulse Ox
98.2 F 60 20 109/67 98
11/29/24 07:16 11/29/24 08:32 11/29/24 07:16 11/29/24 08:32 11/29/24 08:30
Vital Signs
Temp Pulse Resp BP Pulse Ox
98.2 F 60 20 109/67 98
11/29/24 07:16 11/29/24 08:32 11/29/24 07:16 11/29/24 08:32 11/29/24 08:30
Intake & Output
11/27/24 11/28/24 11/29/24 11/30/24
06:59 06:59 06:59 06:59
Intake Total 1310 / 1310 600 / 600 1440 / 1440 500 / 500
Output Total 4375 / 4375 3350 / 3350 1700 / 1700
Balance -3065 / -3065 -2750 / -2750 -260 / -260 500 / 500
Physical Exam
Physical Exam
GEN: NAD
HEENT: mmm
LUNGS: RA. No audible wheeze
CV: SR on tele
ABD: ND
EXT: Trace B/L LE edema
NEURO: Gross non-focal
SKIN: No rash
--- NOTE | 2024-11-29 11:45 | W.PN.HOSP.TC ---
Today's Communication/Plan
-
IR for therapeutic thoracentesis
Continue nightly BiPAP
Oral diuretic regimen
Trend CBC and BMP
Assessment / Plan
Assessment / Plan
#Acute on chronic hypoxemic and hypercapnic respiratory failure
#CHF and Recurrent Right pleural effusion
#COPD
-Multifactorial with COPD, pleural effusion, and decompensated heart failure; hypercapnia driven by COPD
-Initially appeared to be retaining CO2 based on ABG, now much improved after NIPPV HS
-Patient has sulfa allergy and so not able to tolerate acetazolamide for contraction alkalosis/hypercapnia
-Was transition back to oral diuretics for his heart failure, seems euvolemic from my perspective
-Chest x-ray this morning shows reaccumulation of right pleural effusion
-Remains on baseline oxygen at this time, tolerating nightly BiPAP
Plan
-Consult IR for therapeutic thoracentesis, will check cytology
-Continue with oral diuretic regimen of Lasix 80 mg twice daily for heart failure
-Continue with NIPPV nightly for ventilation of hypercapnia
-Continue with as needed bronchodilators and home Trelegy
-SpO2 goal 88 to 94%
#Acute blood loss anemia
#Upper GI bleed due to gastric angiectasia
-Transfused a total of 4 units PRBCs transfused this admission; EGD s/p APC, Colonoscopy s/p 3 colon polyps removed
-Home medications include Eliquis and Plavix for his paroxysmal AF and history of PAD respectively
-Plavix was discontinued as of 11/20; Eliquis initially held but resumed as of this morning
-Was started on IV Protonix 40 mg daily and oral iron supplementation after admission
-Hemoglobin remained stable, plan to DC on PO PPI QD and PO Iron
#Acute metabolic encephalopathy
-likely metabolic due to acute on chronic respiratory failure with hypercarbia, also contributed to by acute anemia requiring transfusions
-Continue NIPPV at night and with naps as tolerated, will need to continue after discharge
-Resolved
#Acute on chronic HFrecEF
-History of ischemic cardiomyopathy with reduced ejection fraction of 43%; most recent TTE with LVEF 50% and stage II diastology
-GDMT includes ACEi, beta-du, high intensity statin, ASA; previously on Plavix as well which was DC'd due to UGIB
-Home medications also include Lasix 60 mg twice daily for diuresis
-Home lisinopril currently held due to hypotension
-Was transitioned back to diuretic regimen
#Abnormal EKG
#Elevated troponin
-Initial concern for STEMI with ST elevations and elevated troponin
-Emergent cardiac cath overnight 11/20-11/21 revealed no obstructive disease
-Elevated troponin nonischemic myocardial injury
-Continue aspirin and statin
#NIDDM
-Home medication includes metformin; no known history of microvascular disease
-Suspected diabetes is associated with his macrovascular disease (PAD)
-Metformin held on arrival, started on ISS with Accu-Cheks
-Blood glucose goal 140-180
#CAD s/p CABG (SHEEHAN to LAD)
#PAD s/p RLE bypass
-Home medication regimen included Plavix, high intensity statin, Eliquis for AF history
-Plavix was discontinued due to GI bleeding; now on statin, Eliquis, and aspirin
-No signs of arterial insufficiency at this time
-Initial concern for STEMI though negative cath as above
CODE STATUS: Full code
Diet: Low-cholesterol diet
DVT prophylaxis: Home Eliquis
Disposition: Home with home care
Anticipated Discharge: 24 - 48 hours
Subjective/Interval History
-
Date of Service: November 29, 2024
Seen and examined at the bedside. No acute events reported overnight. AFVSS on 2 L oxygen.
States he feels more short of breath today. Ordered a chest x-ray this morning which showed reaccumulation of right pleural effusion
He otherwise denies any new complaints. States he does not want to do SNF
Objective Data
-
Labs:
Laboratory Results
11/29/24
02:01
WBC 9.8
Hgb 9.0 L
Hct 31.3 L
Plt Count 573 H
Sodium 132 L
Potassium 4.4
Chloride 80 L
Carbon Dioxide 42 H
BUN 19
Creatinine 0.9
Glucose 133 H
Calcium 8.9
Vital Signs:
Vital Signs
Temp Pulse Resp BP Pulse Ox
96.7 F L 60 20 109/67 95
11/29/24 11:19 11/29/24 08:32 11/29/24 11:19 11/29/24 08:32 11/29/24 11:19
I&O
11/28/24 11/29/24 11/30/24
06:59 06:59 06:59
Intake Total 600 / 600 1440 / 1440 500 / 500
Output Total 3350 / 3350 1700 / 1700 1400 / 1400
Balance -2750 / -2750 -260 / -260 -900 / -900
Review of Systems
-
History Source: Patient
All other systems: Reviewed and negative
Physical Exam
-
General: Well Developed, Well Nourished, No Apparent Distress and Comfortable
HEENT: Normocephalic, Atraumatic, Moist Mucous Membranes and Anicteric
Respiratory: Non Labored Respirations and Decreased Breath Sounds (Right midlung to base); Negative Wheezes, Rales or Rhonchi
Cardiac: Regular Rhythm and S1/S2; Negative Murmur, Rub or Gallop
GI: Soft, Nontender, Nondistended and Normal Bowel Sounds
Musculoskeletal: No Clubbing, No Cyanosis and No Edema
Skin: Warm, Dry and Normal Turgor; Negative Rash
Neuro: AO x 3 and Nonfocal/Grossly Intact
Psych: Calm
Data Reviewed
-
Diagnostic Radiology: Report Reviewed by me and Discussed with Physician (IR, cardiology)
Labs: Labs Reviewed by me and Discussed with Patient
[2024-11-29 12:30] LABS: Glucose - Point of Care 141 mg/dl (70-99)
--- NOTE | 2024-11-29 12:39 | CM ---
Reviewed chart. Asked to check co-pay for Farxiga 10 mg po daily. Telephone call to Shannon Reyna,([phone]) to check on co-pay for Farxiga 10 mg po daily. His co-pay for a 30 day supply is $4.90 and for ninety day supply is also $4.90. Reviewed
co-pay with him. He is agreeable to the co-pay. Placed the one month free coupon in his red discharge folder. Reviewed with Mr. Nelson the his bi-pap machine has been approved and [employer] will be out to deliver it when he is discharged. We
reviewed resumption of [facility]. He states one of his family members will provide transportation home and will bring his portable home 02. Medical work-up in progress. The discharge plan is to return home with his nephew and
resumption of [facility] when medically stable.
--- NOTE | 2024-11-29 14:16 | PTCARENOTE ---
1400: Pt transported to IR on 3l n/c oxygen.
[2024-11-29] MEDS: NOVOLOG FLEXPEN-LOW RESISTANCE SC (14:20)
--- NOTE | 2024-11-29 15:32 | PTCARENOTE ---
Pt returned from IR With bandaid to Rt middle back. No fluid aspirated as per IR.
[2024-11-29] MEDS: LASIX 80 MG PO (15:58)
[2024-11-29 17:01] LABS: Glucose - Point of Care 193 mg/dl (70-99)
[2024-11-29] MEDS: LIPITOR 80 MG PO (17:01)
--- NOTE | 2024-11-29 20:53 | PTCARENOTE ---
Patient received at change of shift resting in the bed; Patient remains on 3L NC, oxygen saturation 91-93%. Normal sinus rhythm on media monitor. Wound care completed as ordered. Acetaminophen 650mg given for mild LLE pain, see DEC. Patient
denies chest pain. 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 Plan of care discussed with patient. Call liu within reach. Care ongoing.
[2024-11-29 22:46] LABS: Glucose - Point of Care 200 mg/dl (70-99)
[2024-11-30 01:50] VITALS: BMI 24.7
[2024-11-30 02:15] VITALS: BP 113/58
[2024-11-30 03:05] LABS: % Basophils 0.4 % (0-2); % Eosinophils 0.6 % (0-6); % Immature Granulocytes 0.4 % (0-0.5); % Monocytes 7.3 % (1.7-9.3); % Neutrophils 83.3 % (42.2-75.2); Absolute Eosinophils 0.1 10^3/uL (0-0.7); Absolute Lymphocytes 0.8 10^3/uL (1.2-3.4); Absolute Monocytes 0.7 10^3/uL (0.1-0.6); Absolute Neutrophils 8.1 10^3/uL (1.4-6.5); Hematocrit 30.9 % (39.0-52.0); Hemoglobin 8.8 g/dL (13.0-18.0); Mean Corp Hgb Conc. 28.5 g/dL (33.0-37.0); Mean Corpuscular Hgb 28.9 pg (27.0-31.0); Mean Corpuscular Volume 101.6 fL (80.0-94.0); Mean Platelet Volume 9.8 fL (7.4-10.4); Nucleated Red Blood Cells % 0.2 % (-); Platelet Count 615 10^3/uL (130-400); Red Blood Cell Count 3.04 10^6/uL (4.70-6.10); Red Cell Dist. Width 15.8 % (11.5-14.5); White Blood Cell Count 9.7 10^3/uL (4.8-10.8)
[2024-11-30 03:11] LABS: Blood Urea Nitrogen 22 mg/dl (9-20); Calcium 8.7 mg/dl (8.4-10.2); Chloride 82 mmol/L (98-107); Estimated Creatinine Clearance 74 ml/min; Glucose 157 mg/dl (70-99); Potassium 3.9 mmol/L (3.5-5.1); Sodium 133 mmol/L (135-145); eGFR > 60.00
[2024-11-30 03:31] LABS: Carbon Dioxide 46 mmol/L (22-30)
[2024-11-30 07:36] VITALS: BP 116/56
[2024-11-30] MEDS: SPIRIVA RESPIMAT 2.5 MCG 2 PUFF INH (07:52)
[2024-11-30] MEDS: SYMBICORT 80/4.5 MCG INHALER 2 PUFF INH (07:52)
--- NOTE | 2024-11-30 08:15 | PN.DE.MGMTRT ---
Insulin Management
- -
11/30/2024: Diabetes Management Consult Follow up
Patient admitted 11/21 found unresponsive at home, out of hospital STEMI alert. PMH: CAD s/p remote CABG at [facility] , Acute on chronic HFpEF, severe COPD with chronic hypoxemic and hypercapnic respiratory failure, PA-Fib/flutter on OAC, HTN, HLD, h/o
CVA 2010, PAD s/p right femoral endarterectomy with saphenous vein angioplasty and right femoral to PT bypass 07/1123, Osteomyelitis toe, Acute macrocytic anemia, Hgb on admission 6.1, Ongoing tobacco use,
h/o bedbugs 06/17 admission, Pleural effusion s/p right sided thoracentesis for 1.9 L 11/21/24, Melena and T2DM.
He underwent cardiac cath that showed no obstructive disease. Was found to be severely anemic and treated with blood transfusion.
Prior to admission was taking metformin 500 mg BID. Current A1C 5.1%, was 7.6% on 08/19/2024. Cr 0.8, eGFR >60.
Pt awake, alert, oriented, sitting up in bed, offers no complaints, able to discuss diabetes plan of care. Nurse noted M&M empty package in patients room 11/29. 11/29 jumbo size peanut butter cups, M&Ms full size bag and regular coke. Discussed with
patient impact of candy and regular soda on glucose. Respectfully stated that he does have the right to have those but that his glucose was up to 192. He stated: 'I do like sweets now and then I guess I could cut back a little'. Agreed with
patient that would be best. Nursing reports discussing removal of candy from room patient refused, using abusive language.
Farxiga was added to his diabetes regimen. Cost 0$ first month then $4.90 per month, he is agreeable.
11/30 Cr .9, eGFR > 60, HGB improved - 9, Glucose range 11/29 141 to 200. Will continue metformin 500 mg BID with Januvia 100 mg daily and Farxiga 10 mg. FBG 145 this AM.
Discussed with nurse.
Will follow.
Pt states he has a working meter that he recently obtained through his PCP and is comfortable checking his blood sugars at home.
Diabetes History
- -
Type of Diabetes: 2
Pre-Admission Diabetes Regimen
11/30/24
02:22
Creatinine 0.9
Lab Results
Hemoglobin A1c 5.1 % (4.0-5.6) 11/21/24 09:17
Insulin Pump Settings
IP Diabetes Regimen
11/29/24 11/29/24 11/29/24
12:29 17:00 22:44
Glucose
POC Glucose 141 H 193 H 200 H
11/30/24
02:22
Glucose 157 H
POC Glucose
Meal type: Breakfast
Amount consumed: 100%
Patient Education
[2024-11-30] MEDS: PROTONIX 40 MG PO (08:28)
[2024-11-30] MEDS: LASIX 80 MG PO (08:28)
[2024-11-30] MEDS: GLUCOPHAGE 500 MG PO (08:28)
[2024-11-30] MEDS: FARXIGA 10 MG PO (08:29)
[2024-11-30] MEDS: TOPROL XL 50 MG PO (08:29)
[2024-11-30] MEDS: PACERONE 200 MG PO (08:29)
[2024-11-30] MEDS: ELIQUIS 5 MG PO (08:30)
[2024-11-30] MEDS: JANUVIA 100 MG PO (08:30)
[2024-11-30 08:32] LABS: Glucose - Point of Care 145 mg/dl (70-99)
[2024-11-30] MEDS: NOVOLOG FLEXPEN-LOW RESISTANCE SC (08:40)
--- NOTE | 2024-11-30 08:51 | W.PN.CARDCBS ---
Addendum entered and electronically signed by Donnell Faye MD 11/30/24 15:54:
I saw and examined the patient.
The Convention Worker's note was reviewed and I agree with the note.
Comment: Briefly, 74-year-old man past medical history of ischemic cardiomyopathy with prior CABG and PCI who presented as STEMI alert and underwent left heart catheterization which did not reveal a culprit lesion. Subsequently found to have melena
and transfusion dependent GI bleed with Hgb as low as 6.1. Underwent GI evaluation and Hgb has subsequently stabilized. Eliquis has been resumed.
Underwent IV diuresis and now appears more euvolemic
Has been transitioned to oral Lasix
Would discharge on furosemide 80 mg twice daily
Stable cardiac status, we will sign off
Cardiology follow-up has been arranged
Original Note:
Today's Communication / Plan
-
Stable for d/c to home from cardiac standpoint
Cont Lasix 80 mg PO BID upon d/c to home
Impression / Plan
-
Dr. Modesta Pretty
Flat Sheet Maker: Dr Riggs
Impression:
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
Out of hospital STEMI alert 11/21/2024
no evidence of culprit lesion by cardiac cath to explain patient's presentation 11/13/2024
Elevated Troponin
CAD
s/p remote CABG at [facility] with SHEEHAN to LAD
PCI with unclear details at [place]
Acute macrocytic anemia, Hgb on admission 6.1
Melena
Acute on chronic HFpEF
History of CVA 2010
Paroxysmal atrial fibrillation/flutter
Chronic Eliquis OAC
Chronic amiodarone therapy
PAD
s/p right femoral endarterectomy with saphenous vein angioplasty and right femoral to PT bypass 07/1123
chronic Plavix therapy
Poor medical compliance
Osteomyelitis toe
COPD
HTN
HLD
DM2
Hep C, treated and cleared infection
Ongoing tobacco use
h/o bedbugs 05/2024 admission
Pleural effusion
s/p right sided thora for 1.9 L 11/21/24
Dobutamine nuclear stress test 07/29/23 finds large inferior and basal inferior septal infarct without stephanie-infarct ischemia. Baseline LVEF 43%
Echo 07/28/23 finds normal LV size and function with LVEF in the low normal range estimated at 51% with basal to mid inferior wall severe hypokinesis. No significant valvular disease.
Echo 06/12/24: EF 50%, basal inferior wall hypokinetic on parasternal short axis views, RV mildly dilated, mildly dilated RA, no significant valvular disease noted
Echo 11/13/24: EF 50%, stage II diastolic dysfunction, trace MR, mild TR with PAP 44 mmHg no
Echo 11/21/24: Ejection fraction 50%, basal inferior akinesis, mild TR, PA systolic 44 mmHg, enlarged right ventricle with right ventricular hypokinesis
Cardiac catheterization 11/21/2024
LM: Large with mild disease
LAD: Large vessel that is proximally occluded within stent just after the takeoff of a large septal with the mid to distal vessel filled by patent SHEEHAN to LAD.
LCx: Large vessel with mild to moderate nonobstructive disease including a 50% stenosis in the mid body of the OM2
RCA: The proximal to distal vessel contains overlapping stents with mild ISR. There is a small region of haziness in the distal vessel as well as in the bifurcation of the distal RCA and RPDA/RPAV. This like represents eccentric atherosclerotic
plaque. There is DIMITRI-3 flow distally.
BYPASS GRAFT ANGIOGRAPHY:
SHEEHAN-LAD: the SHEEHAN is taken as a pedicle and forms an anastomosis with the mid-LAD.
There are clips on the right side of the aorta possible suggestive of an additional bypass graft. Non selective aortogram was performed and did not demonstrate presence of additional patent grafts.
Plan:
-Weight is down another 2 lbs overnight for a weight of 167 lbs on 11/30/2024 which is lower than any previous dry weight for patient. Cre stable.
-Transitioned to Lasix 60 mg PO BID starting 11/29/24 PM. Patient was supposed to be taking Lasix 60 mg BID prior to admission, but unclear if he was actually doing this.
-Recurrent right-sided pleural effusion seen on CXR 11/29/2024 led to attempted repeat right-sided thoracentesis on 11/29/2024 but only 5 ml of fluid could be obtained and pleural effusion is thought to be loculated. IR is recommending a CT to better
define the pleural effusion
-EF stable by echo at 50%.
-Outpatient dose of Toprol XL 50 mg BID has been continued
-Outpatient dose of lisinopril 40 mg daily was stopped due to hypotension
-Patient does not plan on following any salt restriction at home and was upset at how little catch-up he was being given so he had his family bring him a whole bottle ketchup from home that he could use ad carmel
-Patient came to ER on 11/21/24 as a prehospital STEMI alert and was taken to the lift slab operator by Dr. Campbell where he was found to have no evidence of culprit lesion to explain presentation or ECG changes. Troponin peaked at 0.086. Patient managed as
a nonischemic myocardial injury Troponin elevation based on lift slab operator findings and clinical picture of acute anemia.
-Hgb 6.1 on admission and patient received a total of 4 units of PRBCs. Patient is macrocytic. GI signed off after EGD and colonoscopy 11/24/24. He had 1 angioectasia and 3 polyps.
-Outpatient dose of Eliquis 5 mg BID (age 74, wt 77.9, Cre 0.8) was held during GIB work-up, but resumed since 11/26/24.
-Patient with known paroxysmal Afib. Tele reviewed by me 11/30/24 SR.
-Cont amiodarone 200 mg daily. QTc 437 ms by ECG 11/22/24
-Outpatient dose of Plavix is for h/o RLE bypass 07/2023 and this has been stopped without plans to restart due to GIB.
-Cardiology follow up arranged. Agree with VN. Stable for d/c from a cardiac standpoint.
HPI: This is a 74-year-old man with multiple medical conditions including coronary artery disease status post distant CABG, who presents with loss of consciousness and lateral ST elevations on initial EKG. Given his history and findings the Cath
Lab was activated for emergent coronary angiography which did not reveal a culprit to explain his presentation. Relevant findings include a new large right pleural effusion and new severe anemia with hemoglobin of 6 from prior baseline of 12. 2
units of blood were ordered. The patient will be admitted to the hospitalist service for further workup and management with cardiology following. Administered 2 units of blood and trend hemoglobin. Further workup to determine cause of anemia.
For now, would hold Eliquis and Plavix while working up cause of anemia.
Resume patient's home diuretic regimen, but hold additional GDMT for now given mild hypotension until hemodynamics allow restart.
Progress Note - Flat Sheet Maker
Subjective
Date of Service: November 30, 2024
He says that he feels well, denies SOB
Objective
Labs:
11/30/24 02:22
11/30/24 02:22
Labs
Hgb 8.8 g/dL (13.0-18.0) L 11/30/24 02:22
Hct 30.9 % (39.0-52.0) L 11/30/24 02:22
Plt Count 615 10^3/uL (130-400) H 11/30/24 02:22
PT 17.1 Sec (11.4-14.6) H 11/21/24 09:17
INR 1.37 11/21/24 09:17
APTT 25.1 Sec (23.4-35.0) 11/21/24 01:32
Sodium 133 mmol/L (135-145) L 11/30/24 02:22
Potassium 3.9 mmol/L (3.5-5.1) 11/30/24 02:22
BUN 22 mg/dl (9-20) H 11/30/24 02:22
Creatinine 0.9 mg/dL (0.7-1.3) 11/30/24 02:22
Glucose 157 mg/dl (70-99) H 11/30/24 02:22
Vital Signs and I&O:
Vital Signs
Temp Pulse Resp BP Pulse Ox
96.8 F L 65 14 116/56 97
11/30/24 07:38 11/30/24 07:56 11/30/24 07:56 11/30/24 07:36 11/30/24 07:56
Vital Signs
Temp Pulse Resp BP Pulse Ox
96.8 F L 65 14 116/56 97
11/30/24 07:38 11/30/24 07:56 11/30/24 07:56 11/30/24 07:36 11/30/24 07:56
Intake & Output
11/28/24 11/29/24 11/30/24 12/01/24
06:59 06:59 06:59 06:59
Intake Total 600 / 600 1440 / 1440 1640 / 1640
Output Total 3350 / 3350 1700 / 1700 3650 / 3650
Balance -2750 / -2750 -260 / -260 -2009 /
Physical Exam
Physical Exam
GEN: NAD
HEENT: mmm
LUNGS: RA. No audible wheeze
CV: SR on tele
ABD: ND
EXT: Trace B/L LE edema
NEURO: Gross non-focal
SKIN: No rash
[2024-11-30 11:04] VITALS: BP 108/52
--- NOTE | 2024-11-30 11:39 | W.PN.HOSP.TC ---
Addendum entered and electronically signed by Shadi Velasquez DO 11/30/24 16:30:
>30 minutes were utilized for discharge planning and preparation as well as arranging outpatient follow-up and home resources
Original Note:
Today's Communication/Plan
-
Discharge
Labs in 1 week: BMP and CBC
Imaging in 1 week: Chest x-ray
Lasix 80 mg twice daily
SGLT2i
Assessment / Plan
Assessment / Plan
#Acute on chronic hypoxemic and hypercapnic respiratory failure
#CHF and Recurrent Right pleural effusion
#COPD
-Multifactorial with COPD, pleural effusion, and decompensated heart failure; hypercapnia driven by COPD
-Initially appeared to be retaining CO2 based on ABG, now much improved after NIPPV HS
-Patient has sulfa allergy and so not able to tolerate acetazolamide for contraction alkalosis/hypercapnia
-Was transition back to oral diuretics for his heart failure, seems euvolemic from my perspective
-Chest x-ray this morning shows reaccumulation of right pleural effusion
-Remains on baseline oxygen at this time, tolerating nightly BiPAP
-Status post thoracentesis on 11/29 clinical improvement
-Will utilize nightly BiPAP at discharge for ventilation
-Continue home Trelegy and as needed bronchodilator FVC
-SpO2 goal 88 to 94%
#Acute blood loss anemia
#Upper GI bleed due to gastric angiectasia
-Transfused a total of 4 units PRBCs transfused this admission; EGD s/p APC, Colonoscopy s/p 3 colon polyps removed
-Home medications include Eliquis and Plavix for his paroxysmal AF and history of PAD respectively
-Plavix was discontinued as of 11/20; Eliquis initially held but resumed as of this morning
-Was started on IV Protonix 40 mg daily and oral iron supplementation after admission
-Hemoglobin remained stable, plan to DC on PO PPI QD and PO Iron
#Acute metabolic encephalopathy
-likely metabolic due to acute on chronic respiratory failure with hypercarbia, also contributed to by acute anemia requiring transfusions
-Continue NIPPV at night and with naps as tolerated, will need to continue after discharge
-Resolved
#Acute on chronic HFrecEF
-History of ischemic cardiomyopathy with reduced ejection fraction of 43%; most recent TTE with LVEF 50% and stage II diastology
-GDMT includes ACEi, beta-du, high intensity statin, ASA; previously on Plavix as well which was DC'd due to UGIB
-Home medications also include Lasix 60 mg twice daily for diuresis
-Home lisinopril currently held due to hypotension
-Was transitioned back to diuretic regimen
#Abnormal EKG
#Elevated troponin
-Initial concern for STEMI with ST elevations and elevated troponin
-Emergent cardiac cath overnight 11/20-11/21 revealed no obstructive disease
-Elevated troponin nonischemic myocardial injury
-Continue aspirin and statin
#NIDDM
-Home medication includes metformin; no known history of microvascular disease
-Suspected diabetes is associated with his macrovascular disease (PAD)
-Metformin held on arrival, started on ISS with Accu-Cheks
-Blood glucose goal 140-180
#CAD s/p CABG (SHEEHAN to LAD)
#PAD s/p RLE bypass
-Home medication regimen included Plavix, high intensity statin, Eliquis for AF history
-Plavix was discontinued due to GI bleeding; now on statin, Eliquis, and aspirin
-No signs of arterial insufficiency at this time
-Initial concern for STEMI though negative cath as above
CODE STATUS: Full code
Diet: Low-cholesterol diet
DVT prophylaxis: Home Eliquis
Disposition: Home with home care
Anticipated Discharge: Today
Subjective/Interval History
-
Date of Service: November 30, 2024
Seen and examined at the bedside. No acute events reported overnight. AFVSS on baseline O2 this morning
He states that his breathing feels improved compared to yesterday. Hemoglobin and renal function stable
He denies any new complaints. Feels ready to go home, spoke with company who will supply BiPAP this morning
Objective Data
-
Labs:
Laboratory Results
11/30/24
02:22
WBC 9.7
Hgb 8.8 L
Hct 30.9 L
Plt Count 615 H
Sodium 133 L
Potassium 3.9
Chloride 82 L
Carbon Dioxide 46 H
BUN 22 H
Creatinine 0.9
Glucose 157 H
Calcium 8.7
Vital Signs:
Vital Signs
Temp Pulse Resp BP Pulse Ox
99 F 65 20 116/56 97
11/30/24 11:05 11/30/24 07:56 11/30/24 11:05 11/30/24 07:36 11/30/24 11:05
I&O
11/29/24 11/30/24 12/01/24
06:59 06:59 06:59
Intake Total 1440 / 1440 1640 / 1640
Output Total 1700 / 1700 3650 / 3650 275 / 275
Balance -260 / -260 -2009 / -2010 -275 / -275
Review of Systems
-
History Source: Patient
All other systems: Reviewed and negative
Physical Exam
-
General: Well Developed, Well Nourished, No Apparent Distress and Appears Chronically Ill
HEENT: Normocephalic, Atraumatic, Moist Mucous Membranes, Anicteric and Oxygen
Respiratory: Rhonchi and Non Labored Respirations; Negative Wheezes, Rales or Accessory Resp Muscle Use
Cardiac: Regular Rhythm and S1/S2; Negative Murmur, Rub, JVD or Gallop
GI: Soft, Nontender, Nondistended and Normal Bowel Sounds
Musculoskeletal: No Clubbing, No Cyanosis and No Edema
Skin: Warm, Dry and Ulcers (Bandaged ulcers of the LLE); Negative Rash
Neuro: AO x 3 and Nonfocal/Grossly Intact; Negative Tremors
Psych: Calm
Data Reviewed
-
Labs: Labs Reviewed by me, Discussed with Physician (Clinical Researcher) and Discussed with Patient
--- NOTE | 2024-11-30 12:17 | VNURNOTE ---
[facility] liaison spoke with patient at bedside. Discussed recent misuse of home oxygen, 02 use and safety awareness. Discussed history of non compliance with medications,. CM Akua Rangel met with patient at bedside as well. Per CM, SNF not an option d/t
insurance and performance w/inpt PT. CM aware of all info above and that patient's nephew does not help him medically. Discussed option of patient going home to daughter's. He declined. Reviewed with patient plan for new bipap. Patient stated
'we'll see how it goes.' CM provided number for [facility]/bipap. Patient aware to call when DC. VN catastrophe claims supervisor aware of plan. Resumption referral in [facility].
--- NOTE | 2024-11-30 12:38 | CM ---
Addendum entered by Rosa Maria Toledo 11/30/24 14:32:
Received message from Mr. Nelson. He states he has decided to stay with his daughter, Ariane for awhile. Her address is [address] [place] [address] [employer] Left message to [facility] to update them. TT [facility] Liaison. Telephone call to
[facility] to update them regarding deliver of Bi-pap machine. Daughter will be transporting him home today at 4:00 p.m. Medical work-up in progress. The discharge plan is to go to his daughters home with [facility] and [facility] when
medically stable.
Original Note:
Reviewed chart. Met with Mr. Nelson to review discharge plans. Reviewed Bi-pap machine deliver and to call when he is going home. Gave him the [employer] phone number. Reviewed home situation wit him. We reviewed [facility]. Telephone call to
daughterAriane left message. Reviewed with [facility]. Medical work-up in progress. The discharge plan is to return home with his nephew and resumption of [facility] when medically stable. .
[2024-11-30 12:45] LABS: Glucose - Point of Care 198 mg/dl (70-99)
[2024-11-30] MEDS: NOVOLOG FLEXPEN-LOW RESISTANCE 1 UNITS SC (14:22)
[2024-11-30 15:25] VITALS: BP 108/63
--- NOTE | 2024-11-30 15:27 | VNURNOTE ---
[facility] that patient will DC home with daughter who lives in [place]. Unfortunately, [facility] does not service [place]. DANIKA Fatima aware, Estefani [facility] aware.
--- NOTE | 2024-11-30 16:27 | W.DCSUMMARY ---
Discharge Summary
Discharge Data
Date of Admission: 11/21/24
Date of Discharge: 11/30/24
-
Pending Results: No
Hospital Course
74-year-old male with chronic respiratory failure (2 to 3 L baseline), COPD, heart failure with minimally reduced EF, CAD s/p CABG, PAD s/p RLE bypass, paroxysmal AF on Eliquis, NIDDM, MARIJA, HTN, HLD, Hx of CVA that presented to the hospital after
being found unresponsive in his home. Upon arrival had elevated troponin with EKG showing ST elevations. Was taken to Cafeteria Manager blood coronary angiography negative for obstructive CAD. Found to have significantly low hemoglobin near 5.0. Received
4 units of packed red blood cells. GI consulted for EGD that showed bleeding angioectasia, received APC therapy. Hemoglobin stable thereafter, was started on oral iron supplement. Continued on Eliquis, home antiplatelet therapy was discontinued.
Also had right pleural effusion during his hospitalization that required IR thoracentesis x 2. Transudative fluid properties likely secondary to heart failure and loculations in the right pleura. Received IV Lasix that was transition to oral Lasix
80 mg twice daily. Continued on beta-du and started on SGLT2 inhibitor for GDMT. Was started on BiPAP nightly for his chronic hypoxemic and hypercapnic respiratory failure from COPD. Home BiPAP was arranged prior to discharge. After
discharge showed have follow-up with family provider, referral for dynamometer tuner and caul dresser provided as well. Patient deferred against SNF placement, chose home with visiting nurse and home PT. Patient to stay with his daughter temporarily
after discharge from the hospital.
Discharge Plan
-
Patient Disposition: Home (Routine Discharge)
Discharge Diagnosis/Procedures: Decompensated heart failure with mildly reduced ejection fraction
Upper GI bleed from angioectasia requiring 4 units PRBC
Status post EGD with APC of angiectasia
Iron deficiency
Right-sided pleural effusion
Condition: Fair
Diet: 2 Gram Sodium, Diabetic, Carb Controlled and Restrict fluids to 64 oz
Activity: As tolerated
Additional Activity: Wear BiPAP every night as prescribed to prevent CO2 retention in your lungs
Driving Restrictions: Not until seen by your Dr
Bathing Restrictions: None
Blood Work: BMP and CBC 1 week after discharge
Others Tests: Chest x-ray, 2 view, 1 week after discharge
Other Services: VN and PT
Specialty Instructions: Weigh Daily- Call MD for wt gain/loss 3 lbs overnight/5 lbs in 1 week
Activity Restrictions/Additional Instructions:
Wound Care Instructions
Left LE wound- Clean with normal saline or soap and water. Cover with Hydrogel, adaptic, ABD and wrap with ten. Change daily and PRN if soiled.
Tubigrip to left LE
Follow up at wound care center call for an appointment.
Follow-up
Family physician: Within 2 weeks of discharge from hospital, call office to schedule
Nurse Orthopedic: Scheduled appointment on 01/05/2025 at 11:45 AM
Financial Services Rep: Scheduled appointment 12/11/2024 at 10 AM
Instructions: *[facility] Heart Failure Instructions
Referrals:
[facility] [Outside]
[facility] [Outside] (Please call [phone] to have them deliver the Bi-Pap Machine. )
Rossy Schreiber MD, Resident [Family Practice Resident Year2] - (IF PCP NEEDED)
Shadi Riggs MD [Active] - 12/11/24 10:00 am (You have an appointment to see Dr. Riggs at the [facility] office on 12/11/2024 at 10 AM.)
Irwin Posadas MD [Active] - 01/05/25 11:45 am
UNKNOWN - PT DOES,NOT KNOW [Family Provider] -
Additional Discharge Medication Instructions: Start dapagliflozin 10 mg daily for heart failure
Increased Lasix dose to 80 mg twice daily for heart failure
Start Januvia 100 mg daily and metformin 500 mg twice daily for diabetes
Start pantoprazole 40 mg daily to prevent recurrence of GI bleeding
Continue Eliquis 5 mg twice daily
Stop taking Plavix
Prescriptions:
New
furosemide 80 mg Tablet
80 mg PO BID@0800,1600 Qty: 60 11RF
dapagliflozin propanediol 10 mg Tablet
10 mg PO DAILY 30 Days Qty: 30 0RF
metformin 500 mg Tablet
500 mg PO BID@0800,1700 30 Days Qty: 60 0RF
pantoprazole 40 mg Tablet,Delayed Release (Dr/Ec)
40 mg PO DAILY 30 Days Qty: 30 0RF
Januvia 100 mg Tablet
100 mg PO DAILY 30 Days Qty: 30 0RF
Continued
isosorbide mononitrate 60 mg Tablet Extended Release 24 Hr
60 mg PO DAILY
Trelegy Ellipta 100-62.5-25 mcg Blister With Device
1 inh INHALATION R QPM
atorvastatin 80 mg Tablet
80 mg PO HS
albuterol sulfate 90 mcg/actuation HFA aerosol inhaler
2 puff INHALATION R QIDPRN PRN (Reason: sob)
folic acid 1 mg tablet
1 mg PO DAILY
lisinopril 40 mg tablet
40 mg PO DAILY
Eliquis 5 mg Tablet
5 mg PO BID 30 Days Qty: 60 0RF
amiodarone 200 mg Tablet
200 mg PO DAILY 30 Days Qty: 30 0RF
thiamine HCl (vitamin B1) 100 mg Tablet
100 mg PO DAILY
metoprolol succinate 50 mg Tablet Extended Release 24 Hr
50 mg PO BID Qty: 60 0RF
ferrous sulfate 325 mg (65 mg iron) tablet
325 mg PO DAILY Qty: 30 0RF
ropinirole 0.5 mg tablet
0.5 mg PO HS Qty: 30 0RF
Discontinued
clopidogrel [Plavix] 75 mg Tablet
75 mg PO DAILY
metformin 500 mg Tablet
500 mg PO DAILY
furosemide [Lasix] 20 mg tablet
60 mg PO BID Qty: 180 0RF
Discharge Orders:
Discharge Patient (As Directed); Ordered 11/30/24
Ordered By: Shadi Velasquez
Care Plan Goals
Care Plan Goals:
Problem: Readiness for enhanced knowledge related to diagnosis and treatment plan
Goal: Understand your diagnosis and treatment plan needs, including medications if applicable.
Instructions: Know your diagnosis, underlying causes and treatment plan options, including medications if applicable. Consult with your health care team to learn about your diagnosis and treatment plan, including medications if applicable.
Discharge Date and Time
Print Language: WOLOF
--- NOTE | 2024-11-30 16:43 | PTCARENOTE ---
Pt's meds retrieved from pharmacy. Pt d/c'd, reviewed d/c instructions with him, he needs reinforcement. He is going home with his daughter and visiting nurse.
--- NOTE | 2024-12-01 10:31 | CM ---
REceieved message from [facility] who states they can not accept the referral. Telephone call to [facility] to make the referral. Sent referral. [facility] can accept the referral. Faxed discharge instructions. Telephone
call to daughterAriane to update her and sent the discharge instructions via email. Medical work-up in progress. The discharge plan is to go home with his daughter and [facility].
--- NOTE | 2024-12-01 10:51 | W.HF.CON ---
Heart Failure
- LV Function
Left ventricular function study result: LV Ejection fraction >/= 50%
Ejection Fraction Percentage: 50
- ARNI
Patient already on ARNI: No
Heart Failure ARNI Not Indicated: LV Ejection Fraction >/= 40%
- ACEI/ARB
Patient already on ACEI/ARB: Yes
- Beta Andrea
Patient already on Evidence Based Beta Andrea: Yes
- Mineralocorticord Receptor Antagonist
Patient already on MRA: No
Heart Failure MRA Not Indicated: LV Ejection Fraction > 40%
- SGLT-2 Inhibitor
Patient already on SGLT-2 Inhibitor: Yes
- Afib Anticoagulation
Patient already on Anticoagulation for Afib: Yes
- NYHA CHF Classification
NYHA CHF Classification Level: Class III - Symptoms w/ min exertion, interferes w/ nml daily activity
- ACC/AHA Stage
ACC/AHA Stage: Stage C: Symptomatic Heart Failure
== END 2024-11-30 16:20 | disposition home health service (06) | DRG 286 ==
LOC: IVU 03:18
PROVIDERS: Hospitalist; Internal Medicine; Nurse Practitioner Adult Health; Physician Assistant Medical; Radiology Vascular & Interventional Radiology; ADMITTING PHYSICIAN Student in an Organized Health Care Education/Training Program; ATTENDING PHYSICIAN Internal Medicine; CONSULT PHYSICIAN Internal Medicine Critical Care Medicine; CONSULT PHYSICIAN Student in an Organized Health Care Education/Training Program; EMERGENCY PHYSICIAN Emergency Medicine
PROC: 5A09357 Assistance with Respiratory Ventilation, Less than 24 Consecutive Hours, Continuous Positive Airway Pressure (ICD-10-PCS; 2024-11-21)
PROC: 0W993ZZ Drainage of Right Pleural Cavity, Percutaneous Approach (ICD-10-PCS; 2024-11-21)
PROC: 4A023N7 Measurement of Cardiac Sampling and Pressure, Left Heart, Percutaneous Approach (ICD-10-PCS; 2024-11-21)
PROC: B211YZZ Fluoroscopy of Multiple Coronary Arteries using Other Contrast (ICD-10-PCS; 2024-11-21)
PROC: B212YZZ Fluoroscopy of Single Coronary Artery Bypass Graft using Other Contrast (ICD-10-PCS; 2024-11-21)
PROC: 30233N1 Transfusion of Nonautologous Red Blood Cells into Peripheral Vein, Percutaneous Approach (ICD-10-PCS; 2024-11-21)
PROC: 0DB68ZX Excision of Stomach, Via Natural or Artificial Opening Endoscopic, Diagnostic (ICD-10-PCS; 2024-11-24)
PROC: 0DBL8ZZ Excision of Transverse Colon, Via Natural or Artificial Opening Endoscopic (ICD-10-PCS; 2024-11-24)
PROC: 0DBN8ZZ Excision of Sigmoid Colon, Via Natural or Artificial Opening Endoscopic (ICD-10-PCS; 2024-11-24)
PROC: 0DBP8ZZ Excision of Rectum, Via Natural or Artificial Opening Endoscopic (ICD-10-PCS; 2024-11-24)
PROC: 0W3P8ZZ Control Bleeding in Gastrointestinal Tract, Via Natural or Artificial Opening Endoscopic (ICD-10-PCS; 2024-11-24)
DX: I11.0 Hypertensive heart disease with heart failure (principal); G93.41 Metabolic encephalopathy; J96.21 Acute and chronic respiratory failure with hypoxia; J96.22 Acute and chronic respiratory failure with hypercapnia; K31.811 Angiodysplasia of stomach and duodenum with bleeding; I50.43 Acute on chronic combined systolic (congestive) and diastolic (congestive) heart failure; R18.8 Other ascites; E87.29 Other acidosis; D62 Acute posthemorrhagic anemia; J91.8 Pleural effusion in other conditions classified elsewhere; D68.32 Hemorrhagic disorder due to extrinsic circulating anticoagulants; D12.3 Benign neoplasm of transverse colon; D12.5 Benign neoplasm of sigmoid colon; D12.8 Benign neoplasm of rectum; E78.00 Pure hypercholesterolemia, unspecified; F17.210 Nicotine dependence, cigarettes, uncomplicated; I25.10 Atherosclerotic heart disease of native coronary artery without angina pectoris; J44.9 Chronic obstructive pulmonary disease, unspecified; E11.51 Type 2 diabetes mellitus with diabetic peripheral angiopathy without gangrene; G47.33 Obstructive sleep apnea (adult) (pediatric); I48.0 Paroxysmal atrial fibrillation; I5A Non-ischemic myocardial injury (non-traumatic); T45.515A Adverse effect of anticoagulants, initial encounter; K44.9 Diaphragmatic hernia without obstruction or gangrene; K64.8 Other hemorrhoids; K57.30 Diverticulosis of large intestine without perforation or abscess without bleeding; Z95.5 Presence of coronary angioplasty implant and graft; Z95.1 Presence of aortocoronary bypass graft; Z88.2 Allergy status to sulfonamides; Z86.73 Personal history of transient ischemic attack (TIA), and cerebral infarction without residual deficits; Z82.49 Family history of ischemic heart disease and other diseases of the circulatory system; Z79.899 Other long term (current) drug therapy; Z79.02 Long term (current) use of antithrombotics/antiplatelets; Z79.01 Long term (current) use of anticoagulants; Z79.84 Long term (current) use of oral hypoglycemic drugs; Z95.820 Peripheral vascular angioplasty status with implants and grafts
CPT/HCPCS: 88305; 32555; 36600; 71045; 76705; 76937; 80048; 80053; 80306; 82077; 82607; 82728; 82746; 82805; 82962; 83036; 83540; 83550; 83605; 83615; 83735; 83880; 83986; 84100; 84155; 84157; 84443; 84484; 85014; 85018; 85025; 85027; 85610; 85730; 86850; 86900; 86901; 86920; 87015; 87070; 87205; 87522; 88112; 88342; 89051; 93005; 93306; 93459; 94640; 97116; 97163; 97166; 97530; 99291; 99406; C1894; J2916; P9016; Q9967

== ENCOUNTER 2024-12-02 02:14 | Inpatient (IN) | payer MEDICARE, SELFPAY ==
[2024-12-01 23:09] VITALS: BP 92/43
--- NOTE | 2024-12-01 23:11 | ED.GENMED ---
History of Present Illness
General
Chief Complaint: Breathing Problem
Source: patient and ambulance crew
Exam Limitations: none
Time Seen by Provider: 12/01/24 23:06
History of Present Illness
History of Present Illness:
See MDM
Past History
Past History
ED Past Medical History: COPD, HTN, Hypercholesterolemia, NIDDM, MA, Other (agre with documented pmhx and add: COPD.) and Other (TIA, diabetes mellitus type 2, hyperlipidemia, COPD, CAD, MA with CABG, hypertension, sleep apnea, hepatitis C)
ED Past Surgical History: Appendectomy, Cardiac (stents. Has had several stents. Last heart surgery 1997.), Orthopedic and Tonsilectomy
Social History
Tobacco: Smoker
Alcohol: Occasional
Drug: Marijuana
Personal:
Living: with family
Employment: Disabled
Family History
Family History: CAD
Phy Exam
Physical Exam
Physical Exam:
See MDM
Scores
Heart Failure Risk
Heart Failure Risk Score: Yes
History of Stroke or TIA: No
History of intubation for respiratory distress: No
Heart rate on ED arrival >/= 110: No
SaO2 <90% on arrival on room air: Yes
HR >/=110 during 3min walk test (or too ill to perform test): Yes
ECG has acute ischemic changes: No
Urea >/=12mmol/L (BUN 33.6mg/dL): No
Serum CO2>/=35mmol/L: Yes
Troponin I or T elevated to MA Level (0.4mg/dL): No
NT-proBNP >/=5,000ng/L (5,000pg/ml): Yes
HF Risk Score: 6
Admission Status: VERY HIGH RISK 55.3% Consider admission to hospital
Sepsis
Sepsis Screening
Sepsis Assessment: Sepsis
Sepsis Screen
Sepsis Screen: Sepsis
Date: 12/02/24
Time: 00:40
Course
Orders/Labs/Results
Orders:
Orders
12/01/24 23:06
EKG [Electrocardiogram (*1)] Urgent
Reason for Study: Shortness of Breath
12/01/24 23:07
EKG- Treatment ONCE
12/01/24 23:08
CR Chest Portable - 1 View Urgent
Comment:
Reason For Exam: SOB
Reason Study Needs to be Portable: Patient Unstable
12/01/24 23:18
Acetaminophen [Tylenol] 1,000 mg PO NOW STA
12/01/24 23:21
COVID-19 Antigen Urgent
Source: Nasal Swab
Complete Blood Count/With Diff Urgent
Manual Differential Urgent
Blood Culture Q30M
REUBEN Source: Blood/Venous
Specimen Description:
Blood Culture Q30M
REUBEN Source: Blood/Venous
Specimen Description:
Influenza A+B Rapid Molecular Urgent
REUBEN Source: Nasal Swab
Specimen Description:
12/01/24 23:22
Comprehensive Metabolic Panel Urgent
Lactic Acid Q4H
Comment: CANCEL 2nd LACTIC ACID IF 1st LACTIC ACID IS LESS THAN 2
NT-proBNP Urgent
PTT Urgent
Prothrombin Time Urgent
12/01/24 23:35
Urinalysis Reflex To Culture Urgent
Date Specimen was Collected: 12/01/24
Time Specimen was Collected: 23:33
Urine Microscopic Reflex Cult Urgent
Urine Culture Urgent
REUBEN Source: U
Specimen Description:
Date Specimen was Collected: 12/01/24
Time Specimen was Collected: 23:33
12/02/24 00:39
Cefepime HCl [Maxipime] 1,000 mg IV NOW STA
12/02/24 03:15
Lactic Acid Q4H
Comment: CANCEL 2nd LACTIC ACID IF 1st LACTIC ACID IS LESS THAN 2
Abnormal Lab Results
12/01/24 12/01/24 12/01/24
23:21 23:22 23:35
WBC 21.6 H 10^3/uL
(4.8-10.8)
RBC 2.80 L 10^6/uL
(4.70-6.10)
Hgb 8.2 L g/dL
(13.0-18.0)
Hct 27.5 L %
(39.0-52.0)
MCV 98.2 H fL
(80.0-94.0)
MCHC 29.8 L g/dL
(33.0-37.0)
RDW 16.4 H %
(11.5-14.5)
Plt Count 570 H 10^3/uL
(130-400)
Abs Neuts (Manual) 20.5 H 10^3/uL
(1.4-6.5)
Segmented Neutrophils 82 H %
(42-75)
Band Neutrophils 13 H %
(0-3)
Lymphocytes (Manual) 2 L %
(20-51)
Sodium 128 L mmol/L
(135-145)
Chloride 83 L mmol/L
(98-107)
Carbon Dioxide 43 H mmol/L
(22-30)
BUN 22 H mg/dl
(9-20)
Glucose 151 H mg/dl
(70-99)
Lactic Acid 2.4 H mmol/L
(0.7-2.0)
Total Protein 5.4 L g/dl
(6.3-8.2)
Albumin 2.7 L g/dl
(3.5-5.0)
Ur Occult Blood Reflex 4+ A
(Negative)
Leukocyte Esterase Rfl 3+ A
(Negative)
Urine RBC 21-25 A /HPF
(0-2)
Urine WBC (Reflex) 70-80 A /HPF
(0-5)
Urine Bacteria (Reflex) Many A
(Negative)
Urine Glucose 3+ A
(Negative)
12/01/24 23:21
12/01/24 23:22
Vital Signs
Initial and Last Documented VS:
Initial Vital Signs
Temp Pulse Resp BP Pulse Ox
100.2 F 96 26 92/43 75
12/01/24 23:09 12/01/24 23:09 12/01/24 23:09 12/01/24 23:09 12/01/24 23:09
Last Documented Vital Signs
Temp Pulse Resp BP Pulse Ox
100.2 F 95 27 93/56 96
12/01/24 23:09 12/01/24 23:36 12/01/24 23:36 12/01/24 23:36 12/02/24 00:07
MDM/Problems Addressed
Differential Diagnosis Includes:
HPI and MDM Narrative:
74-year-old male presenting with worsening shortness of breath. EMS stating that he was recently discharged from the hospital. Patient does have a history of COPD and is chronically on 2 to 3 L. On arrival, patient hypoxic to the 70s on room air.
Patient still hypoxic on his chronic 2 to 3 L. Patient requiring nonrebreather.
Patient has a very wet sounding cough. He has rhonchorous breath sounds throughout
Patient is pale. Prior records indicate that he was recently seen in the emergency department and admitted for GI bleed. He required 4 units of blood. Patient was found to have bleeding on EGD. He was found to have bleeding angioectasia and
received APC therapy.
During that admission, patient also required thoracentesis for pleural effusion
It was suggested that he go to SNF during his last admission but patient declined
Given his worsening shortness of breath and hypoxia, will obtain chest x-ray. Patient found to be febrile. Will obtain lactic acid and blood cultures. Will look for infectious etiology and will ultimately admit
Physical exam
General: Weak and fatigued
HEENT: protecting airway
Neck: appears supple
CV: No evidence of cyanosis. Regular rate and rhythm
Resp: No accessory muscle use. Rhonchorous breath sounds throughout. Decreased breath sounds to right base
Abd: Non-distended
Extremities: Bilateral leg edema noted
Neuro: alert
Psych: Normal affect
Skin: Intact
Problems Addressed including Acute and Chronic Conditions affecting care:
1. Shortness of breath with hypoxia
Acuity: acute
Prognosis: stable
Details: Will obtain chest x-ray. Given the significant hypoxia, patient requiring nonrebreather
2. Weakness and fatigue
Acuity: acute
Prognosis: stable
Details: Given his recent GI bleed, will obtain hemoglobin testing
Updates
Chest x-ray consistent with right-sided large pleural effusion
Patient would benefit from Lasix given his increasing oxygen demand. However, his blood pressure is labile. Potentially giving Lasix will significantly lower his blood pressure and cause worsening symptoms.
The other hand, patient has a low-grade fever and elevated lactic acid. Patient would benefit from IV fluids but IV fluids may cause significant respiratory distress. Patient already requiring high flow nasal cannula. But, the elevated lactic
acid could be related to hypoperfusion given his hypoxia rather than being elevated secondary to sepsis
Urine is concerning for UTI. Will start cefepime
Differential Diagnosis (but not limited to): Pleural effusion, pneumonia, influenza, symptomatic anemia
Testing considered: CT chest
Drug therapy (if applicable): OTC meds, please see d/c instruction regarding Rx drugs
Amount and/or Complexity of Data Reviewed
Clinical info obtained from: Patient
External data reviewed: Recent admission where he was found to have upper GI bleed and required blood transfusion
Labs I independently reviewed (but not limited to): Elevated BNP
Radiology: X-ray independently reviewed: Large right pleural effusion
Pulse Ox: not hypoxic
EKG independently reviewed: Sinus rhythm, left axis, no STEMI, ST depressions laterally which appears unchanged
Energy Conservation Engineer: Sinus rhythm
Critical Care: N/A
Risk of Complication:
Social Determinants of health: Good social support
Discussed with other providers: Hospitalist
Escalation of Care includes Admit/Obs: given his increasing oxygen demand, will admit
Occasional wrong word or 'sound a like' substitutions may have occurred due to the inherent limitations of voice recognition software. Read the chart carefully and recognize, using context, where substitutions have occurred.
*Critical Care Note
Total Time (30-74mins, 75-104mins- exclusive of procedures): Not Applicable
ED Attending Note
-
Portions of this chart may have been created with voice recognition software.� Occasional wrong word or��sound alike� substitutions may have occurred due to the inherent limitations of voice recognition software.
Discharge Plan
Departure
Patient Disposition: Admit
Date of Disposition: 12/02/24
Time of Disposition: 00:12
Presentation/result/management discussed w/ accepting MD/DO: Hospitalist
Discharge Problem:
Hypoxia, Pleural effusion, Acute UTI
Prescriptions:
No Action
isosorbide mononitrate 60 mg Tablet Extended Release 24 Hr
60 mg PO DAILY
Trelegy Ellipta 100-62.5-25 mcg Blister With Device
1 inh INHALATION R QPM
atorvastatin 80 mg Tablet
80 mg PO HS
albuterol sulfate 90 mcg/actuation HFA aerosol inhaler
2 puff INHALATION R QIDPRN PRN (Reason: sob)
folic acid 1 mg tablet
1 mg PO DAILY
lisinopril 40 mg tablet
40 mg PO DAILY
Eliquis 5 mg Tablet
5 mg PO BID 30 Days Qty: 60 0RF
amiodarone 200 mg Tablet
200 mg PO DAILY 30 Days Qty: 30 0RF
thiamine HCl (vitamin B1) 100 mg Tablet
100 mg PO DAILY
metoprolol succinate 50 mg Tablet Extended Release 24 Hr
50 mg PO BID Qty: 60 0RF
ferrous sulfate 325 mg (65 mg iron) tablet
325 mg PO DAILY Qty: 30 0RF
ropinirole 0.5 mg tablet
0.5 mg PO HS Qty: 30 0RF
dapagliflozin propanediol 10 mg Tablet
10 mg PO DAILY 30 Days Qty: 30 0RF
metformin 500 mg Tablet
500 mg PO BID@0800,1700 30 Days Qty: 60 0RF
pantoprazole 40 mg Tablet,Delayed Release (Dr/Ec)
40 mg PO DAILY 30 Days Qty: 30 0RF
Januvia 100 mg Tablet
100 mg PO DAILY 30 Days Qty: 30 0RF
donepezil 5 mg Tablet
5 mg PO DAILY
metoprolol tartrate 50 mg Tablet
50 mg PO BID
furosemide 80 mg tablet
20 mg PO BID@0800,1600
Referrals:
UNKNOWN - PT DOES,NOT KNOW [Family Provider] -
Interventions
Interventions:
*Risk Screen - Suicide Last Done: 12/01/24 23:09
*General Assessment Last Done: 12/01/24 23:09
*Neglect/Abuse Screening Last Done: 12/01/24 23:09
Discharge Date and Time
Print Language: ECUADOREAN
[2024-12-01 23:14] VITALS: BP 92/43
[2024-12-01 23:17] VITALS: BP 89/44
[2024-12-01 23:23] VITALS: BP 108/55
[2024-12-01] MEDS: TYLENOL 1000 MG PO (23:31)
[2024-12-01 23:36] VITALS: BP 93/56
[2024-12-01 23:45] VITALS: BP 113/54
[2024-12-01 23:45] LABS: Urine Albumin Negative (Neg - Trace); Urine Bilirubin Negative (Negative); Urine Character Clear (Clear); Urine Color Yellow; Urine Glucose 3+ (Negative); Urine Ketone Negative (Negative); Urine Leukocyte 3+ (Negative); Urine Nitrite Negative (Negative); Urine Occult Blood 4+ (Negative); Urine Urobilinogen Negative (Neg - 1+)
[2024-12-01 23:49] LABS: ALT (SGPT) 18 U/L (0-50); APTT 26.6 Sec (23.4-35.0); AST (SGOT) 27 U/L (17-59); Albumin 2.7 g/dl (3.5-5.0); Alkaline Phosphatase 126 U/L (38-126); Blood Urea Nitrogen 22 mg/dl (9-20); Calcium 8.8 mg/dl (8.4-10.2); Chloride 83 mmol/L (98-107); Estimated Creatinine Clearance 81 ml/min; Glucose 151 mg/dl (70-99); INR 1.06; PT 14.1 Sec (11.4-14.6); Sodium 128 mmol/L (135-145); Total Bilirubin 0.5 mg/dl (0.2-1.3); Total Protein 5.4 g/dl (6.3-8.2); eGFR > 60.00
[2024-12-01 23:50] LABS: Lactic Acid 2.4 mmol/L (0.7-2.0)
[2024-12-01 23:53] LABS: Hematocrit 27.5 % (39.0-52.0); Hemoglobin 8.2 g/dL (13.0-18.0); Mean Corp Hgb Conc. 29.8 g/dL (33.0-37.0); Mean Corpuscular Hgb 29.3 pg (27.0-31.0); Mean Corpuscular Volume 98.2 fL (80.0-94.0); Mean Platelet Volume 9.6 fL (7.4-10.4); Platelet Count 570 10^3/uL (130-400); Red Cell Dist. Width 16.4 % (11.5-14.5); White Blood Cell Count 21.6 10^3/uL (4.8-10.8)
[2024-12-01 23:57] LABS: NT-proBNP 6690 pg/ml
[2024-12-01 23:58] LABS: COVID-19 Antigen Negative (Negative)
[2024-12-01 23:59] LABS: Carbon Dioxide 43 mmol/L (22-30)
[2024-12-02] VITALS (54 sets, daily range): BP systolic 76–137; BP diastolic 35–76; PULSE 2–82; BMI 24.3
[2024-12-02 00:12] LABS: Absolute Neutrophils -Man Diff 20.5 10^3/uL (1.4-6.5); Anisocytosis 1+; Band Neutrophils 13 % (0-3); Lymphocytes 2 % (20-51); Monocytes 3 % (2-9); Normal RBC Morphology No; Platelets Checked Yes; Segmented Neutrophils 82 % (42-75); Total Cells Counted 100; Toxic Granulation 1+; Vacuolated Segs Occasional
[2024-12-02 00:19] LABS: Hypochromasia 2+; Target Cells 1+
[2024-12-02 00:20] LABS: Basophilic Stippling 1+
[2024-12-02 00:21] LABS: Ovalocytes Occasional; Polychromasia 1+; Stomatocytes 1+
[2024-12-02 00:34] LABS: Urine Amorphous Seen; Urine Squamous Cell >30 /LPF (Few)
[2024-12-02 00:36] LABS: Urine Bacteria Many (Negative); Urine White Cell 70-80 /HPF (0-5)
[2024-12-02 00:37] LABS: Urine Red Blood Cell 21-25 /HPF (0-2)
[2024-12-02] MEDS: MAXIPIME 1000 MG IV (00:57)
[2024-12-02] MEDS: ATIVAN 0.5 MG IV (00:57)
--- NOTE | 2024-12-02 02:04 | HPS.HSE ---
Family Physician
-
Family Physician: NOT KNOW UNKNOWN - PT DOES
Chief Complaint
-
SOB
History of Present Illness
Patient is a 74y M with PMH significant for severe COPD, ASCVD and CHF who presents to ED complaining of SOB. Patient was admitted to 11/21 - 11/30 after being found unresponsive at home. He was treated for CHF with IV Lasix which was
transitioned to PO dosing. He was treated for a time with NIPPV - though he refused this consistently prior to his discharge. Patient was also noted to have a moderate sized R pleural effusion. He underwent thoracentesis for 1.9 liters. A
subsequent thoracentesis on 11/29 yielded only 5cc of fluid.
Patient states that he has become progressive more SOB since his discharge.
He has been urinating frequently. Today he started with a harsh, hacking cough productive of yellow / brown mucus.
He began to become less responsive / more fatigued - as he had prior to his recent admission - and he was brought back to the ED for further valuation.
Family notes that they did obtain a BiPAP machine today. He used it sparingly throughout the day today.
In the ED, patient is uncomfortable / in evident distress. He was given Ativan prior to my examination and is currently asleep.
He does wake to stimuli and answers questions before falling back to sleep.
Medical History
Past Medical History
Past Medical History: Reports Other
Additional Past Medical History:
ASCVD (CAD, PAD, CVA)
Chronic HFpEF
Hypertension
Paroxysmal Atrial Fibrillation
COPD
Chronic Hypoxemic and Hypercapnic Respiratory Failure
Hepatitis C
MARIJA
DM-II
Past Surgical History: Reports Other
Additional Past Surgical History:
CABG
PTCA with Stent
R Femoral Endarterectomy / Bypass
Social History
Tobacco: Smoker (Current every day smoker. > 50 pack years total use.)
Alcohol: Occasional
Drug: Marijuana (frequently)
Living: With Family
Family History
Family History: Not pertinent
Allergies / Home Medications
Allergies reflects when Allergies were last updated in [facility].
Home Medications with original date entered in [facility]
Allergy/Medication List:
Allergies
Allergy/AdvReac Type Severity Reaction Status Date / Time
Sulfa (Sulfonamide Allergy hives,itchi Verified 12/01/24 23:08
Antibiotics) ng
Home Medications
isosorbide mononitrate 60 mg tablet,extended release 24 hr 60 mg PO DAILY Heart Disease/Condition 02/26/11
fluticasone fur. 100 mcg-umeclid 62.5 mcg-vilant 25 mcg inhalat.powder (Trelegy Ellipta) 1 inh inhalation R QPM Lung/Breathing Issues 07/25/23
atorvastatin 80 mg tablet 80 mg PO HS High Cholesterol 07/26/23
folic acid 1 mg tablet 1 mg PO DAILY Supplement 07/16/24
lisinopril 40 mg tablet 40 mg PO DAILY Blood Pressure 07/16/24
amiodarone 200 mg tablet 200 mg PO DAILY Arrhythmia 30 days #30 tabs 07/24/24
apixaban 5 mg tablet (Eliquis) 5 mg PO BID Blood clot prevention/tx 30 days #60 tabs 07/24/24
thiamine HCl (vitamin B1) 100 mg tablet 100 mg PO DAILY Supplement 08/18/24
ferrous sulfate 325 mg (65 mg iron) tablet 325 mg PO DAILY #30 tabs 08/23/24
ropinirole 0.5 mg tablet 0.5 mg PO HS #30 tabs 08/23/24
dapagliflozin propanediol 10 mg tablet 10 mg PO DAILY Heart Failure 1 month #30 tabs 11/30/24
pantoprazole 40 mg tablet,delayed release 40 mg PO DAILY Gastrointestinal issue 1 month #30 tabs 11/30/24
sitagliptin phosphate 100 mg tablet (Januvia) 100 mg PO DAILY Diabetes 1 month #30 tabs 11/30/24
donepezil 5 mg tablet 5 mg PO DAILY 12/02/24
furosemide 80 mg tablet 80 mg PO BID@0800,1600 Heart Failure 12/02/24
metformin 500 mg tablet 500 mg PO BID Diabetes 12/02/24
oxycodone-acetaminophen 5 mg-325 mg tablet 1 tab PO Q6H PRN pain 12/02/24
Review of Systems
-
History Source: Patient and Family
A 12 point ROS was completed and negative except as noted: Yes
Constitutional: Reports Fatigue; Denies Fever or Chills
EENT: Denies Sore Throat
Respiratory: Reports Cough and Trouble Breathing
Cardiac: Denies Chest Pain or Palpitations
Abdomen/GI: Denies Abdominal Pain, Nausea, Vomiting or Diarrhea
: Reports Frequency and Incontinence; Denies Dysuria or Bleeding
Musculoskeletal: Denies Joint Pain or Edema
Neurological: Denies Dizzy or Headache
Psych: Denies Depression or Anxiety
Physical Exam
Vital Signs
Vital Signs
Temp Pulse Resp BP Pulse Ox
100.2 F 95 27 93/56 99
12/01/24 23:09 12/01/24 23:36 12/01/24 23:36 12/01/24 23:36 12/02/24 01:18
Physical Exam
General: Other (74y M lethargic but arousable. High flow NC in place at present.)
HEENT: Other (Dry MM. Neck supple.)
Respiratory: Other (Decreased BS and dullness to percussion on the R about 1/2 up. Coarse breath sounds / rhonchi throughout other lung patton. No wheezing.)
Cardiac: S1/S2, Irregular Rhythm and Murmur (II/ FABRICIO)
GI: Other (Softly distended. Not tender.)
Musculoskeletal: No Clubbing, No Cyanosis, No Edema and Other (Dry skin.)
Neuro: Other (Lethargic. Wakes to verbal stimuli and answers questions / follows commands. Falls quickly back to sleep when undisturbed.)
Laboratory Results
-
12/01/24 23:21
12/01/24 23:22
Laboratory Results
PT 14.1 Sec (11.4-14.6) 12/01/24 23:22
INR 1.06 12/01/24 23:22
APTT 26.6 Sec (23.4-35.0) 12/01/24 23:22
Lactic Acid 2.4 mmol/L (0.7-2.0) H 12/01/24 23:22
Total Bilirubin 0.5 mg/dl (0.2-1.3) 12/01/24 23:22
AST 27 U/L (17-59) 12/01/24:
ALT 18 U/L (0-50) 12/01/24 23:22
Alkaline Phosphatase 126 U/L (38-126) 12/01/24 23:22
Impression/Plan
-
A/P: Patient is a 74y M with PMH significant for chronic combined respiratory failure, severe COPD, CHF and ASCVD who presents to ED complaining of increased SOB and new cough.
Acute on Chronic Hypoxemic and Hypercapnic Respiratory Failure
- Admit to ICU for further evaluation and treatment.
- Trial of NIPPV if patient will tolerate - concern that high-flow O2 will exacerbate his hypercapnia.
- Respiratory failure likely multifactorial and secondary to CHF, pleural effusion +/- respiratory infection / pneumonia.
- Continue supportive care including O2 supplementation, NIPPV as tolerated, etc.
- Treat individual issues as noted below.
Right Pleural Effusion
- R pleural effusion perhaps slightly increased from prior (2/).
- Note that most recent attempt at thoracentesis resulted in only 5cc of fluid being removed.
- Check CT chest for further evaluation of apparently loculated fluid.
- IR re-evaluation in the AM.
- Consider thoracic surgery evaluation if fluid cannot be removed via IR.
Acute on Chronic HFpEF
- Weight is increased about 3 kg from discharge about 24 hours ago.
- No significant edema and has dry skin diffusely - but does have abdominal distention and increased dyspnea.
- Change Lasix back to IV BID for now.
- Follow I/Os, daily weights, etc.
- BP was running low throughout his recent hospitalization as well - and remained stable despite diuresis and BP medications.
- Cardiology evaluation.
Leukocytosis
Bronchitis / Pneumonia
- Patient with temp = 100.2, new cough and worsened dyspnea.
- ? pneumonia unappreciated on CXR due to effusion / opacity.
- Check CT as noted above.
- COVID and flu negative in the ED.
- IV abx with Zosyn for now.
- Follow fever curve, leukocytosis and monitor for any new / focal symptoms.
Severe COPD
MARIJA
- No active wheezing appreciated.
- Continue current inhaler regimen.
- NIPPV as patient tolerates - family states that they did receive a machine at home today for outpatient use.
- Pulmonary evaluation for additional recommendations.
- Check VBG now.
Anemia
- Suspected recent blood loss s/p GI evaluation during recent stay.
- EGD and colonoscopy without obvious source of bleeding.
- Outpatient capsule study recommended.
- Hgb fairly stable compared to recent discharge.
- Continue iron supplementation
- Follow for any changes.
ASCVD
- Stable. Cath done during recent visit with non-obstructing coronary disease.
- Continue metoprolol, statin, etc.
- Off of antiplatelets given recent blood loss / suspected GI source.
Paroxysmal Atrial Fibrillation
- Stable. Continue metoprolol. Hold Eliquis acutely for any necessary procedures.
DM-II
- Stable. Hold PO medications including newly added SGLT2 inhibitor.
- Follow glucose and cover with SSI for now.
- A1C during recent visit was 5.1%.
Benign Hypertension
- Currently relatively hypotensive - similar to prior admission.
- Patient received no lisinopril or isosorbide for the entirety of his recent admission - and BP remained in the 90-100s.
- Would discontinue these mediations and likely not resume upon discharge unless BP significantly changes.
DVT Prophylaxis: SCDs
Code Status: DNR
[2024-12-02 03:39] LABS: Venous Blood Gas B.E. 19.1 mmol/L (-4 to +4); Venous Blood Gas HCO3 46.1 mmol/L (22-27); Venous Blood Gas O2 Sat % 88.2 %; Venous Blood Gas pH 7.42 (7.32-7.43); Venous Blood Gas pO2 54 mmHg (30-50)
[2024-12-02 03:40] LABS: Venous Blood Gas O2 Therapy 15L; Venous Blood Gas pCO2 71 mmHg (35-48)
[2024-12-02 04:07] LABS: Lactic Acid 0.9 mmol/L (0.7-2.0)
[2024-12-02 04:07] LABS: Glucose - Point of Care 171 mg/dl (70-99)
[2024-12-02 05:15] LABS: Hematocrit 26.5 % (39.0-52.0); Hemoglobin 8.1 g/dL (13.0-18.0); Mean Corp Hgb Conc. 30.6 g/dL (33.0-37.0); Mean Corpuscular Hgb 29.6 pg (27.0-31.0); Mean Corpuscular Volume 96.7 fL (80.0-94.0); Platelet Count 575 10^3/uL (130-400); Red Blood Cell Count 2.74 10^6/uL (4.70-6.10); Red Cell Dist. Width 16.5 % (11.5-14.5); White Blood Cell Count 25.4 10^3/uL (4.8-10.8)
--- NOTE | 2024-12-02 05:32 | PTCARENOTE ---
[id number]: Received Patient in room 3357 awake and on 6 liters oxygen via nasal cannula. Patient transferred to ICU bed and cleansed with CHG wipes. AAOx3 and able to verbalize his needs. MAEx4. Plan of care for the remainder of the shift, reviewed
with the patient. Sinus rhythm on the monitor with HR in the 80s. Afebrile. +2 edema to right foot. PIV without blood return. SpO2 at 96% on 6L/O2 nc. Pt's with harsh/wet cough that's nonproductive. rhonchi/crackles/coarse breath sounds. Abdomen is
round and soft. The patient voids via urinal and is incontinent of urine. Patient has a small unstageable DTI to his left buttock, left leg scattered diabetic wounds with yellow slough; left anterior foot scab, and right lateral leg scab. wound care
as documented on the flowsheet. Full documentation as noted on the flowsheet.Call liu is within reach.
[2024-12-02] MEDS: ZOSYN 50 IV ×3 (06:06→18:16)
[2024-12-02 06:32] LABS: Blood Urea Nitrogen 22 mg/dl (9-20); Chloride 87 mmol/L (98-107); Estimated Creatinine Clearance 83 ml/min; Glucose 160 mg/dl (70-99); Magnesium 1.8 mg/dl (1.6-2.3); Phosphorus 4.4 mg/dl (2.5-4.5); Potassium 4.2 mmol/L (3.5-5.1); Sodium 134 mmol/L (135-145); eGFR > 60.00
[2024-12-02] MEDS: LASIX 40 MG IV ×2 (07:33→16:29)
[2024-12-02] MEDS: PACERONE 200 MG PO (07:34)
[2024-12-02] MEDS: FOLVITE 1 MG PO (07:34)
[2024-12-02] MEDS: FEOSOL 325 MG PO ×2 (07:34→19:38)
[2024-12-02] MEDS: VITAMIN B1 100 MG PO (07:34)
[2024-12-02 07:47] LABS: Glucose - Point of Care 166 mg/dl (70-99)
[2024-12-02] MEDS: NOVOLOG FLEXPEN-LOW RESISTANCE 1 UNITS SC ×2 (07:53→12:43)
--- NOTE | 2024-12-02 08:12 | CON.INTV ---
Consultation
Consultation Request
Date/Time Consultation Requested: 12/02/2024
Date/Time Consultation Performed: 12/02/2024
Requesting Provider: Dr. Blanco
Performing Provider: Dr. Irwin Mckeon
Reason for Consultation: Acute/chronic hypoxemic respiratory failure
Medical History
-
History of Present Illness:
74-year-old man with history of advanced COPD, heart failure with preserved ejection fraction, history of tobacco abuse, history of alcohol abuse, chronic hypoxemic and hypercapnic respiratory failure, recently discharged from the hospital for acute
hypercapnic respiratory failure he was found unresponsive. He was treated for heart failure and also for COPD. Had a right pleural effusion that was drained-cultures negative, cytology negative. Second attempt during that hospital stay on
11/29/2024 unsuccessful. Likely loculated as chest x-ray had persistent abnormality in the right. Pleural effusion at that time did not have increased white blood cells or significantly increased LDH. Did not have any high risk features.
-
States that at home became progressively short of breath since discharge.
Reports frequent urination.
Started with a harsh, hacking cough productive of yellow mucus. Chest x-ray showed persistent right-sided pleural effusion that possibly slightly worse.
Has leukocytosis with left shift.
Patient feels more fatigued.
It is noted during the last hospital stay that this patient was refusing to use BiPAP. Family recently obtain BiPAP and patient was using it sparingly.
Denied any nausea, vomiting or abdominal pain.
He did receive some Ativan in the emergency room for restlessness and increased work of breathing.
Past Medical History
Past Medical History: Other (See assessment and plan)
Past Surgical History: Other (Above as per HPI)
Social History
Tobacco: Smoker (Hx of 1-1.5 PPD, now smoking <0.25PPD, and has been smoking since 20 years old)
Alcohol: Occasional
Drug: None
Personal: Single
Living: With Family (nephew)
Employment: Retired
Family History
Family History: CAD (Father: of a heart attack)
Allergies / Home Medications
Allergies
Allergy/AdvReac Type Severity Reaction Status Date / Time
Sulfa (Sulfonamide Allergy hives,itchi Verified 12/01/24 23:08
Antibiotics) ng
Home Medications
�Medication �Instructions �Recorded �Confirmed �Last Taken �Type
isosorbide mononitrate 60 mg 60 mg PO DAILY Heart 02/26/11 12/02/24 08/18/24 History
tablet,extended release 24 hr Disease/Condition
fluticasone fur. 100 mcg-umeclid 1 inh inhalation R QPM 07/25/23 12/02/24 08/17/24 History
62.5 mcg-vilant 25 mcg Lung/Breathing Issues
inhalat.powder (Trelegy Ellipta)
atorvastatin 80 mg tablet 80 mg PO HS High Cholesterol 07/26/23 12/02/24 08/17/24 History
folic acid 1 mg tablet 1 mg PO DAILY Supplement 07/16/24 12/02/24 08/18/24 History
lisinopril 40 mg tablet 40 mg PO DAILY Blood Pressure 07/16/24 12/02/24 08/18/24 History
amiodarone 200 mg tablet 200 mg PO DAILY Arrhythmia 30 days 07/24/24 12/02/24 08/18/24 Rx
#30 tabs
apixaban 5 mg tablet (Eliquis) 5 mg PO BID Blood clot 07/24/24 12/02/24 08/18/24 Rx
prevention/tx 30 days #60 tabs
thiamine HCl (vitamin B1) 100 mg 100 mg PO DAILY Supplement 08/18/24 12/02/24 08/18/24 History
tablet
ferrous sulfate 325 mg (65 mg 325 mg PO DAILY #30 tabs 08/23/24 12/02/24 Unknown Rx
iron) tablet
ropinirole 0.5 mg tablet 0.5 mg PO HS #30 tabs 08/23/24 12/02/24 Unknown Rx
dapagliflozin propanediol 10 mg 10 mg PO DAILY Heart Failure 1 11/30/24 12/02/24 Unknown Rx
tablet month #30 tabs
pantoprazole 40 mg tablet,delayed 40 mg PO DAILY Gastrointestinal 11/30/24 12/02/24 Unknown Rx
release issue 1 month #30 tabs
sitagliptin phosphate 100 mg 100 mg PO DAILY Diabetes 1 month 11/30/24 12/02/24 Unknown Rx
tablet (Januvia) #30 tabs
donepezil 5 mg tablet 5 mg PO DAILY 12/02/24 12/02/24 Unknown History
furosemide 80 mg tablet 80 mg PO BID@0800,1600 Heart 12/02/24 12/02/24 Unknown History
Failure
metformin 500 mg tablet 500 mg PO BID Diabetes 12/02/24 12/02/24 Unknown History
oxycodone-acetaminophen 5 mg-325 1 tab PO Q6H PRN pain 12/02/24 12/02/24 Unknown History
mg tablet
Review of Systems
Vitals / Labs / Diagnostic Testing
Vital Signs
Temp Pulse Resp BP Pulse Ox
98.6 F 78 22 103/59 94
12/02/24 07:13 12/02/24 08:00 12/02/24 08:00 12/02/24 08:01 12/02/24 08:00
Lab Data
12/02/24 04:42
12/02/24 05:55
Laboratory Results
12/01/24
23:22
PT 14.1
INR 1.06
APTT 26.6
Microbiology
12/01/24 23:21 Nasal Swab Influenza Types A & B (MAT) - Final
Negative for Influenza A & B, NAAT
Negative results must be combined with clinical observations
and patient history.
Nucleic Acid Amplification test (NAAT)performed on the
[employer] platform.
Diagnostic Testing:
Physical Exam
-
HEENT: Normocephalic
Cardiovascular: S1/S2
Respiratory: Other (Decreased breath sounds in the right)
GI: Soft and Non Distended
Neurology: Awake and AO x 3
General: Comfortable
Assessment
-
74-year-old man with multiple medical problems. Advanced COPD. Chronic hypercapnic and hypoxemic respiratory failure. Coronary artery disease post bypass, peripheral vascular disease, ongoing smoking, alcohol abuse disorder. Recently discharged
from the hospital a few days ago after being admitted with change in mental status, acute hypercapnic on chronic hypercapnic respiratory failure, right pleural effusion, heart failure. Apparently refusing to use BiPAP in the hospital.
Readmitted 12/01/2024 with worsening shortness of breath, cough, leukocytosis. Persistent right pleural effusion.
Acute on chronic hypoxemic respiratory failure-cannot rule out pneumonia/other source including urine as he urinalysis is abnormal/acute on chronic heart failure with preserved ejection fraction.
Required noninvasive mechanical ventilation for increased work of breathing.
Abnormal UA: Possible UTI
Leukocytosis with a left shift
Chronic hypercapnic respiratory failure-appears compensated-likely due to advanced COPD
VBG 7.42/71/54 (12/02/2024)
Chronic right pleural effusions present since July
Right pleural effusion: 11/21/2024 status post thoracentesis 1900 cc of clear pleural fluid.
Present since July 2024 based on chest x-ray.
CT chest 12/02/2024: Old right 4 through 11 rib fractures
Moderate to large right pleural effusion. Compressive atelectasis. No significant left pleural effusion. Small nodular opacity in the left upper lobe new compared to prior CAT scan.
Possible heart failure component with preserved ejection fraction proBNP in the 5999's
Chronic mAcrocytic anemia
EGD/colonoscopy without a source of bleeding
Status post 4 units of packed red blood cells and recent admission 11/2024
GI note:No significant mass was found. More likely multifactorial with chronic disease plus potentially small bowel angioectasias
-
Recent discharge from the hospital 11/30/2024.
EKG changes initially admitted as ST elevation myocardial infraction alert
Cardiac catheterization 11/21/2024: Nonobstructive coronary artery disease. Elevated LVEDP at 19.
-
Conditions present prior admission:
# Lung nodule 7.4 mm on CAT scan January 2024-due for repeat CT. Request given 11/16/2024.
#Active tobacco smoker-ongoing
# Advanced COPD due to tobacco use not in an acute exacerbation
Chronic hypoxemic respiratory failure 2-3 L of supplemental oxygen.
On Trelegy
Last seen by Dr. Mckeon 11/16/2024
PFT 2022 - 1.43L 46%
#Paroxysmal A-fib/flutter on Eliquis
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
#CAD s/p CABG
#PAD with Hx of right femoral endarterectomy and femoral bypas.
#DM type II (HbA1C: 7.5 on 08/19/2024)
# Hepatic steatosis-mild ascites on ultrasound
#History of hepatitis C
# History of alcohol abuse-patient states no longer using 12/02/2024
# History of tobacco abuse patient states that no longer using 12/02/2024
Assessment and plan:
-
Current presentation could be multifactorial. Concern for sepsis due to leukocytosis with left shift.
I am not convinced that there is right lower lobe pneumonia-patient does have chronic right pleural effusion that appears worse-worsening could be from volume overload his weight is higher. proBNP is elevated.
Urinalysis abnormal: Suspect urinary tract infection-symptoms may be related to sepsis.
-
Chronic hypercapnic respiratory failure due to advanced COPD. Compensated.
No evidence for acute exacerbation.
TSH was normal at 0.93 on 11/21/2024
UDS only positive for marijuana.
Alcohol level not detected
-
VBG appears compensated 12/02/2024
Will continue BiPAP if patient allows as needed-it is noted during last admission that he was refusing. In the outpatient setting he was not also convinced that he was able to use it.
Per family he recently obtained BiPAP but patient not using as he has been recently been discharged from the hospital. It is noted in prior admission the patient has been refusing to use it.
Avoid sedatives
Unable to use Diamox due to sulfa allergy.
Continue to follow electrolytes.
-
Hold antihypertensive-follow hemodynamics. Presented with hypotension. Similar to prior admission.
-
Agree with antibiotics-Zosyn.
COVID-negative/flu negative
Abnormal urinalysis: Cannot rule out UTI as a source for leukocytosis.
Low-grade fever on admission/leukocytosis with left shift.
Follow leukocytosis
Again, not convinced that the patient has pneumonia. However, he does report some increased coughing.
Blood cultures
Urine culture
Sputum culture if able
-
Right pleural effusion: It has been present since at least July 2024. Suspect multifactorial, postinfectious, heart disease, perhaps liver disease.
Status post 1900 cc thoracentesis 11/21/2024.
pH 7.61/white blood cells 178/88% mononuclears/total protein 3/LDH 98-suspect pseudo exudate as the patient has been getting diuretics.
Negative cytology and cultures 11/21/2024
Ultrasound of the abdomen 11/21/2024:Does not mention cirrhosis or portal hypertension-has hepatic steatosis.
Check CRP, DELIO sedimentation rate.
Given worsening/persistent pleural effusion-last attempt on 11/29/2024 unsuccessful. Recommend interventional radiology evaluation for chest tube placement and possibly use of tPA/dornase alpha.
Not sure if this patient will be the greatest candidate for any thoracic surgery evaluations. Advanced COPD, heart failure, hypercapnic respiratory failure, poor compliance.
-
Prior CT chest January 2024 showed no evidence for any pulmonary mass on the right.
He has a groundglass pulmonary nodule that needs to be followed. He has a request for repeat CT chest given by me to him on 11/16/2024. Stable CAT scan 12/01/2024.
Doubt malignant or infectious in etiology-pleural fluid culture negative.
-
Heart failure component with preserved ejection fraction: Weight is elevated/proBNP elevated.
EKG this admission reviewed: Nonischemic
Continue Lasix 40 mg IV every 12. proBNP elevated weight is increased. Per primary team.
Cardiology has been consulted
-
In regards to COPD: Not in exacerbation. Patient has bronchitic cough.
On his recent outpatient follow-up with Dr. Mckeon 11/16/2024: The plan was to transition him to nebulized therapy with Brovana/Pulmicort and Yupelri.(This is pending)
He has been using Trelegy. Start Spiriva and Symbicort while in the hospital.
Acapella device
Nebulizers as needed
-
Macrocytic anemia-possibly related to alcohol. Hemoglobin of 6.1 on 11/23/2024. New development since late last year on anticoagulation.
Patient is on Eliquis/Plavix. Currently on hold
Transfuse as necessary. --> 4 units PRBCs since admission, last given on 11/23/2024
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
polyps throughout with 3 of them removed and diverticulosis in the left colon
GI recommended outpatient [id number] mass or source of bleeding.
-
Type 2 diabetes-follow H&H
Continue outpatient medication
-
DVT prophylaxis: Eliquis resumed on 11/26/2024-currently on hold possibly will require procedures.
-
Follow-up with Dr. Mckeon as previously scheduled after discharge.
Daughter Ariane has recently gotten involved with his father's care. Per nursing this admission patient was not sure about the DNR. This will need to be discussed with daughter.
-
No additional critical care needs
Transfer to intermediate care unit
[2024-12-02 08:25] LABS: Carbon Dioxide 39 mmol/L (22-30)
[2024-12-02] MEDS: LOPRESSOR 50 MG PO (09:01)
--- NOTE | 2024-12-02 09:23 | PTCARENOTE ---
Patient downgraded to IMU level.
--- NOTE | 2024-12-02 09:27 | CON.CAR ---
Addendum entered and electronically signed by Donnell Fyae MD 12/02/24 12:53:
I saw and examined the patient.
The Comic Artist's note was reviewed and I agree with the note.
Comment: Briefly, 74-year-old man past medical history of ischemic cardiomyopathy and recent hospitalization who presents with cough and shortness of breath which is likely multifactorial however with elevated proBNP and history of heart failure
suspect there is a component of heart failure with preserved ejection fraction
Agree with IV diuresis with Lasix twice daily
Follow daily standing weights, renal function/electrolytes
Hold Farxiga while urine culture is pending�there is concern for possible UTI
Blood pressure is unlikely to tolerate the addition of spironolactone
History of A-fib but maintaining sinus rhythm here
Continue Amio/metoprolol
Eliquis on hold, would resume when able for cardioembolic prophylaxis
For known CAD would continue beta-du and high intensity statin
Single agent with Eliquis only due to GI bleeding
Original Note:
Consultation
Consultation Request
Date/Time Consultation Performed: 12/02/24
Requesting Provider: Dr. Blanco
Performing Provider: Mariel Lucas PA-C for Dr. Faye
Reason for Consultation: SOB
Medical History
-
Chief Complaint: SOB, cough
History of Present Illness:
Patient with history of ischemic cardiomyopathy status post CABG and prior PCI with admission to [facility] 04/18nitially for STEMI with cath with no clear culprit, GI bleeding requiring transfusion, and CHF who now presents back to
the [facility] less than 48 hours later due to shortness of breath and cough. He was recommended SNF upon discharge last admission, however refused. He was discharged on p.o. Lasix 80 mg twice daily. He was noted to be febrile and hypoxic
and admitted. He is being treated for pneumonia. He has a moderate to large right-sided pleural effusion with attempted thoracentesis last admission, however felt to be loculated and therefore [facility] was only able to obtain 5 cc of fluid. ProBNP is
downtrending from last admission. Weight is the lowest it has been.
PMH:
Chronic HFpEF
R Pleural effusion
s/p right sided thora for 1.9 L 11/21/24
s/p attempted thora 11/29/24, felt to be loculated as only 5cc out
CAD
s/p remote CABG at [facility] with SHEEHAN to LAD
PCI with unclear details at [place]
Out of hospital STEMI alert 11/21/2024, no evidence of culprit lesion by cardiac cath to explain patient's presentation
GI bleed/macrocytic anemia s/p EGD/colon 11/24/24 with 1 angioectasia status post APC, and 3 colon polyp status post removal but no clear etiology of acute anemia
History of CVA 2010
Paroxysmal atrial fibrillation/flutter
Chronic Eliquis OAC
Chronic amiodarone therapy
PAD
s/p right femoral endarterectomy with saphenous vein angioplasty and right femoral to PT bypass 07/1123
chronic Plavix therapy
Poor medical compliance
Osteomyelitis toe
COPD
HTN
HLD
DM2
Hep C, treated and cleared infection
Ongoing tobacco use
h/o bedbugs 05/2024 admission
Past Medical History
Past Medical History: Other (in HPI)
Social History
Tobacco: Smoker
Alcohol: Chronic Alcoholic
Personal: Single
Living: With Family
Family History
Family History: Reviewed & Not Pertinent
Allergies / Home Medications
Allergy/AdvReac Type Severity Reaction Status Date / Time
Sulfa (Sulfonamide Allergy hives,itchi Verified 12/01/24 23:08
Antibiotics) ng
�Medication �Instructions �Recorded �Confirmed �Type
isosorbide mononitrate 60 mg 60 mg PO DAILY Heart 02/26/11 12/02/24 History
tablet,extended release 24 hr Disease/Condition
fluticasone fur. 100 mcg-umeclid 1 inh inhalation R QPM 07/25/23 12/02/24 History
62.5 mcg-vilant 25 mcg Lung/Breathing Issues
inhalat.powder (Trelegy Ellipta)
atorvastatin 80 mg tablet 80 mg PO HS High Cholesterol 07/26/23 12/02/24 History
folic acid 1 mg tablet 1 mg PO DAILY Supplement 07/16/24 12/02/24 History
lisinopril 40 mg tablet 40 mg PO DAILY Blood Pressure 07/16/24 12/02/24 History
amiodarone 200 mg tablet 200 mg PO DAILY Arrhythmia 30 days 07/24/24 12/02/24 Rx
#30 tabs
apixaban 5 mg tablet (Eliquis) 5 mg PO BID Blood clot 07/24/24 12/02/24 Rx
prevention/tx 30 days #60 tabs
thiamine HCl (vitamin B1) 100 mg 100 mg PO DAILY Supplement 08/18/24 12/02/24 History
tablet
ferrous sulfate 325 mg (65 mg 325 mg PO DAILY #30 tabs 08/23/24 12/02/24 Rx
iron) tablet
ropinirole 0.5 mg tablet 0.5 mg PO HS #30 tabs 08/23/24 12/02/24 Rx
dapagliflozin propanediol 10 mg 10 mg PO DAILY Heart Failure 1 11/30/24 12/02/24 Rx
tablet month #30 tabs
pantoprazole 40 mg tablet,delayed 40 mg PO DAILY Gastrointestinal 11/30/24 12/02/24 Rx
release issue 1 month #30 tabs
sitagliptin phosphate 100 mg 100 mg PO DAILY Diabetes 1 month 11/30/24 12/02/24 Rx
tablet (Januvia) #30 tabs
donepezil 5 mg tablet 5 mg PO DAILY 12/02/24 12/02/24 History
furosemide 80 mg tablet 80 mg PO BID@0800,1600 Heart 12/02/24 12/02/24 History
Failure
metformin 500 mg tablet 500 mg PO BID Diabetes 12/02/24 12/02/24 History
oxycodone-acetaminophen 5 mg-325 1 tab PO Q6H PRN pain 12/02/24 12/02/24 History
mg tablet
Review of Systems
-
History Source: Patient
All other systems: Negative unless noted
Physical Exam
Vital Signs
Temp Pulse Resp BP Pulse Ox
98.6 F 87 23 122/65 94
12/02/24 07:13 12/02/24 09:02 12/02/24 09:02 12/02/24 09:02 12/02/24 08:00
Lab Results
12/02/24 04:42
12/02/24 05:55
[id number] Pept 6690 pg/ml 12/01/24 23:22
Physical Exam
General: No Apparent Distress and Other (hacking cough)
HEENT: Normocephalic, Anicteric and Moist Mucous Membranes
Respiratory: Rhonchi
Cardiac: S1/S2 and Regular Rhythm
GI: Soft, Non Tender, Non Distended and Normal Bowel Sounds
Musculoskeletal: No Clubbing, No Cyanosis and Edema (trace of B/L LE)
Skin: Warm and Dry
Neuro: AO x 3
Impression / Plan
-
Dr. Modesta Pretty
Filter Washer And Presser: Dr Riggs
Impression:
Presentation with SOB, cough
Acute on Chronic Hypoxemic and Hypercapnic Respiratory Failure
PNA vs bronchitis
Acute on chronic HFpEF
R Pleural effusion
s/p right sided thora for 1.9 L 11/21/24
s/p attempted thora 11/29/24, felt to be loculated as only 5cc out
CAD
s/p remote CABG at [facility] with SHEEHAN to LAD
PCI with unclear details at [place]
Out of hospital STEMI alert 11/21/2024, no evidence of culprit lesion by cardiac cath to explain patient's presentation
GI bleed/macrocytic anemia s/p EGD/colon 11/24/24 with 1 angioectasia status post APC, and 3 colon polyp status post removal but no clear etiology of acute anemia
History of CVA 2010
Paroxysmal atrial fibrillation/flutter
Chronic Eliquis OAC
Chronic amiodarone therapy
PAD
s/p right femoral endarterectomy with saphenous vein angioplasty and right femoral to PT bypass 07/1123
chronic Plavix therapy
Poor medical compliance
Osteomyelitis toe
COPD
HTN
HLD
DM2
Hep C, treated and cleared infection
Ongoing tobacco use
h/o bedbugs 05/2024 admission
DNR code status
Dobutamine nuclear stress test 07/29/23 finds large inferior and basal inferior septal infarct without stephanie-infarct ischemia. Baseline LVEF 43%
Echo 07/28/23 finds normal LV size and function with LVEF in the low normal range estimated at 51% with basal to mid inferior wall severe hypokinesis. No significant valvular disease.
Echo 06/12/24: EF 50%, basal inferior wall hypokinetic on parasternal short axis views, RV mildly dilated, mildly dilated RA, no significant valvular disease noted
Echo 11/13/24: EF 50%, stage II diastolic dysfunction, trace MR, mild TR with PAP 44 mmHg no
Echo 11/21/24: Ejection fraction 50%, basal inferior akinesis, mild TR, PA systolic 44 mmHg, enlarged right ventricle with right ventricular hypokinesis
Cardiac catheterization 11/21/2024
LM: Large with mild disease
LAD: Large vessel that is proximally occluded within stent just after the takeoff of a large septal with the mid to distal vessel filled by patent SHEEHAN to LAD.
LCx: Large vessel with mild to moderate nonobstructive disease including a 50% stenosis in the mid body of the OM2
RCA: The proximal to distal vessel contains overlapping stents with mild ISR. There is a small region of haziness in the distal vessel as well as in the bifurcation of the distal RCA and RPDA/RPAV. This like represents eccentric atherosclerotic
plaque. There is DIMITRI-3 flow distally.
BYPASS GRAFT ANGIOGRAPHY:
SHEEHAN-LAD: the SHEEHAN is taken as a pedicle and forms an anastomosis with the mid-LAD.
There are clips on the right side of the aorta possible suggestive of an additional bypass graft. Non selective aortogram was performed and did not demonstrate presence of additional patent grafts.
Plan:
-Patient with recent admission to [facility], discharged 11/30/2024 presents back to [facility] last evening due to shortness of breath and hacking cough. Noted to be hypoxic and with temp of 100.2. Concern for
pneumonia/bronchitis. COVID and flu negative. On antibiotics per primary service
-proBNP trending down and weight lowest it has been this morning. Okay to continue IV Lasix 40 mg twice daily for now. Creatinine stable
-Noted to have recurrent right-sided pleural effusion on imaging, moderate to large by CT. Underwent attempted repeat thoracentesis 11/29/2024 but effusion felt to be loculated and only 5 mL of fluid could be drained. For IR reevaluation
-EF by echo last admission 50%. Continue Toprol 50 mg twice daily. Outpatient lisinopril stopped last admission due to hypotension. Continue Farxiga
-Hemoglobin 8.1. Plavix stopped last admission due to GI bleeding. Eliquis on hold for possible thoracentesis
-Remains in sinus rhythm on review of telemetry and EKG. He has known history of paroxysmal A-fib. Continue amiodarone
HPI: This is a 74-year-old man with multiple medical conditions including coronary artery disease status post distant CABG, who presents with loss of consciousness and lateral ST elevations on initial EKG. Given his history and findings the Cath
Lab was activated for emergent coronary angiography which did not reveal a culprit to explain his presentation. Relevant findings include a new large right pleural effusion and new severe anemia with hemoglobin of 6 from prior baseline of 12. 2
units of blood were ordered. The patient will be admitted to the hospitalist service for further workup and management with cardiology following. Administered 2 units of blood and trend hemoglobin. Further workup to determine cause of anemia.
For now, would hold Eliquis and Plavix while working up cause of anemia.
Resume patient's home diuretic regimen, but hold additional GDMT for now given mild hypotension until hemodynamics allow restart.
Data Reviewed
-
EKG: Tracing Personally Visualized and interpreted
CT Scan: Report Reviewed by me
Medical Tests (Nuc Med, Echo etc): Report Reviewed by me
Labs: Labs Reviewed by me
Old Records: Reviewed
--- NOTE | 2024-12-02 09:34 | PTCARENOTE ---
Rec'd care of patient at 0700. Patient alert and oriented. MAEx4. Restless and agitated. Cursing at staff. Uncooperative with care at times. NSR on tele monitor. Pulse ox 93-94% on 6L nc. Patient removing nasal cannula, leading to pulse ox to drop
to low 70's. Nasal cannula reapplied and educated on risks. C/o pain from pressure ulcer on left ear. Protective pads applied. Lung sounds coarse with rhonchi throughout. SCHULTE. Orthopneic. Harsh, moist cough present; non-productive. +BS. Appetite
good. Incontinent of large brown bm. CHG bath provided. Voiding in urinal. Peripheral INTs flushed and capped. LLE dressing intact. WOC consult.
--- NOTE | 2024-12-02 12:37 | PTCARENOTE ---
Patient back from IR. Patient drowsy. Vitals stable. Pulse ox 97-98% on 6L nc. Right chest tube in place, placed on suction. Serosanguineous drainage.
[2024-12-02 12:40] LABS: Glucose - Point of Care 161 mg/dl (70-99)
--- NOTE | 2024-12-02 12:48 | W.PN.HOSP.TC ---
Today's Communication/Plan
-
see A/P, extensive
IR placed Chest tube right side
IV Zosyn to continue
Pt refused BIPAP
BB, amiodarone
start Acapella, Spiriva, Pulmicort
IV Lasix BID, monitor BP/hemodynamics
Cultures pending
Pulm, IR and Cardiology consultation appreciated
Assessment / Plan
Assessment / Plan
A/P: Patient is a 74y M with PMH significant for chronic combined respiratory failure, severe COPD, CHF and ASCVD who presents to ED complaining of increased SOB and new cough.
Acute on Chronic Hypoxemic and Hypercapnic Respiratory Failure, concern for underlying
- Transfer to IMU, continue high risk for acute decompensation
- Trial of NIPPV -pt not tolerating BIPAP
- Respiratory failure likely multifactorial and secondary to CHF, pleural effusion +/- respiratory infection / bacterial pneumonia.
- Continue supportive care including O2 supplementation, NIPPV as tolerated, etc.
Right Pleural Effusion, chronic since July, loculated
-Moderate to large right pleural effusion. Probable compressive atelectasis within the adjacent right mid to lower lung on CT chest today
- R pleural effusion perhaps slightly increased from prior (11/29).
-S/P IR chest tube placement- report /fluid eval pending
-Chest tube settings per IR
-Pulmonary consultation appreciated
- Note that most recent attempt at thoracentesis resulted in only 5cc of fluid being removed.
-IR placed chest tube 12/02- continue per IR recs
Acute on Chronic HFpEF
- Weight is increased about 3 kg from discharge about 24 hours ago.
- No significant edema and has dry skin diffusely - but does have abdominal distention and increased dyspnea.
- Continue Lasix IV BID for now per Cardiology recs
- Follow I/Os, daily weights, etc.
- BP was running low throughout his recent hospitalization as well - and remained stable despite diuresis and BP medications.
- Cardiology evaluation appreciated
Leukocytosis
Bronchitis / Pneumonia
- Patient with temp = 100.2, new cough and worsened dyspnea.
- ? pneumonia unappreciated on CXR due to effusion / opacity.
- Check CT as noted above.
- COVID and flu negative in the ED.
- IV abx with Zosyn for now, consider broadening
- Follow fever curve, leukocytosis and monitor for any new / focal symptoms.
Severe COPD
MARIJA
- No active wheezing appreciated.
- NIPPV as patient tolerates - family states that they did receive a machine at home today for outpatient use. Pt not tolerating BIPAP
- Pulmonary evaluation appreciated- added Spiriva/Symbicort/Acapella
Anemia
Macrocytic anemia-possibly related to alcohol.
-Transfuse as necessary. --> 4 units PRBCs , last given on 11/23/2024
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
polyps throughout with 3 of them removed and diverticulosis in the left colon
GI recommended outpatient [id number] mass or source of bleeding.
- Suspected recent blood loss s/p GI evaluation during recent stay.
- EGD and colonoscopy without obvious source of bleeding.
- Outpatient capsule study recommended by GI
- Hgb fairly stable compared to recent discharge.
- Continue iron supplementation
- Follow for any changes.
-CBC in am
ASCVD
- Stable. Cath done during recent visit with non-obstructing coronary disease.
- Continue metoprolol, statin, etc. per Cards recs
- Off of antiplatelets given recent blood loss / suspected GI source. - single agent Eliquis only per Cards due to GI bleed.
Paroxysmal Atrial Fibrillation
- Stable. Continue metoprolol. Continue amiodarone per Cards. Hold Eliquis acutely and continue to hold for now, for any necessary procedures.
DM-II
- Stable. Hold PO medications including newly added SGLT2 inhibitor.
- Follow glucose and cover with SSI for now.
- A1C during recent visit was 5.1%.
Benign Hypertension
- Currently relatively hypotensive - similar to prior admission. Cont BB per Cards, hold parameters
- Patient received no lisinopril or isosorbide for the entirety of his recent admission - and BP remained in the 90-100s.
- Would discontinue these mediations and likely not resume upon discharge unless BP significantly changes.
New CT Chest 12/02:
Incidental findings:
#Fractures of the right fourth through 11th ribs, which morphologically appear to be old.
#Small focus of reticular and small nodular opacities in the anteromedial left upper lobe, which could represent scarring or a small focus of small airway pneumonitis, new since prior CT examination.
#Both adrenal glands are enlarged, incompletely included on the [id number], similar appearance to prior CT, compatible with hyperplasia and/or adenomas. Of note, imaging studies do not address the functional status of an adrenal mass. If there
are clinical signs or symptoms of adrenal hyperfunction, biochemical testing may be required to determine if the lesion is excreting excess hormone.
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
DVT Prophylaxis: SCDs
Code Status: DNR
Anticipated Discharge: > 48 hours
Subjective/Interval History
-
Date of Service: December 02, 2024
Dr. Colby in IR performed right-sided chest tube today, patient is still sedated post-procedure. Waiting on procedure note. Fluid orders placed by Pulmonary.
The pt had versed and fentanyl, and is sleeping. Chest tube in place draining serosanguineous fluid.
Afebrile, VSS
Objective Data
-
Labs:
Laboratory Results
12/02/24 12/02/24
04:42 05:55
WBC 25.4 H
Hgb 8.1 L
Hct 26.5 L
Plt Count 575 H
Sodium Cancelled 134 L
Potassium Cancelled 4.2
Chloride Cancelled 87 L
Carbon Dioxide Cancelled 39 H
BUN Cancelled 22 H
Creatinine Cancelled 0.8
Glucose Cancelled 160 H
Calcium Cancelled 9.0
Vital Signs:
Vital Signs
Temp Pulse Resp BP Pulse Ox
98.6 F 78 29 98/55 97
12/02/24 07:13 12/02/24 11:00 12/02/24 11:00 12/02/24 11:00 12/02/24 11:00
Review of Systems
-
Unable to obtain full review of systems at this time due to: Other (sedated post procedure)
Physical Exam
-
General: Appears Chronically Ill
HEENT: Normocephalic and Atraumatic
Respiratory: Rhonchi (right mid and upper greater than left)
Cardiac: Regular Rhythm and S1/S2
GI: Soft, Nontender, Nondistended and Normal Bowel Sounds
Musculoskeletal: No Clubbing, No Cyanosis and No Edema
Skin: Warm and Dry
Neuro: Sedated
Psych: Calm
Data Reviewed
-
Labs: Labs Reviewed by me
[2024-12-02 13:30] LABS: Body Fluid pH 7.51
[2024-12-02 13:43] LABS: Body Fluid Amylase 56 U/L; Body Fluid Glucose 170 mg/dl; Body Fluid LDH 176 U/L; Body Fluid Protein 3.1 g/dl; Body Fluid Triglycerides < 30 mg/dl
[2024-12-02 13:55] LABS: Body Fluid Mononuclear 93.8 %; Body Fluid Polymorphonuclear 6.2 %; Body Fluid WBC 480 /CUMM
[2024-12-02 14:09] LABS: Body Fluid Second Tech CS
--- NOTE | 2024-12-02 15:55 | PTCARENOTE ---
Patient's bed exit alarming. Upon entering room, patient sideways in bed. Patient attempting to get out of bed; pulling off tele leads and pulse ox. While repositioning back in bed, patient reminded of chest tube and not to pull on any tubes or
wires. Patient agitated and demanding water. Once repositioned, patient grabbed ahold of chest tube and pulled. RN able to stop patient from pulling chest tube out. Pulse ox down to 83-85%. Instrumental Music Teacher notified. Patient positioned high in bed and
order for stat cxr placed. RT at bedside to place patient on 12L MF. Pulse ox up to high 90's. Weaned currently to 8L MF. Pulse ox 93%. Bed alarm remains on and functioning.
[2024-12-02 16:49] LABS: Glucose - Point of Care 136 mg/dl (70-99)
[2024-12-02] MEDS: NOVOLOG FLEXPEN-LOW RESISTANCE SC (16:50)
--- NOTE | 2024-12-02 18:16 | PTCARENOTE ---
Patient calmer and cooperative with care. Washed and repositioned in bed. Vitals stable. Chest tube output 1020 cc's.
[2024-12-02] MEDS: SYMBICORT 80/4.5 MCG INHALER 2 PUFF INH (20:15)
[2024-12-02] MEDS: TOPROL XL PO (20:28)
--- NOTE | 2024-12-02 20:56 | PTCARENOTE ---
Received patient in bed drowsy, but easily arousable to verbal commands. AAOx3. MAEx4. Plan of care for the shift reviewed with the patient. Denies pain at this time. Sinus rhythm on the monitor. Patient is on midflow o2 at 8 liters. SpO2 at 99%.
Rhonchi/coarse breath sounds throughout. Harsh cough. tachypneic. SCHULTE. Right chest tube is draining serosang output. Pleur evac changed for 1250 cc. Chest tube to wall suction 80/20. PAtient is incontinent for urine. condom catheter use discussed
with the patient and he is agreeable to trying condom cath. #35 condom catheter placed. Pt's voiding yellow urine. Bed sheet/pads changed. Patient assisted with repositioning. Bed alarm remains in use. Call liu and personal belonings are within
reach.
[2024-12-02] MEDS: REQUIP 0.5 MG PO (21:07)
[2024-12-02] MEDS: LIPITOR 80 MG PO (21:07)
--- NOTE | 2024-12-02 21:18 | PTCARENOTE ---
Patient's daughter, Ariane, updated via the telephone.
[2024-12-02 22:01] LABS: Glucose - Point of Care 271 mg/dl (70-99)
[2024-12-03] VITALS (33 sets, daily range): BP systolic 82–118; BP diastolic 39–87; O2SAT 95; BMI 23.7
[2024-12-03] MEDS: ZOSYN 50 IV ×5 (00:19→23:02)
--- NOTE | 2024-12-03 00:35 | PTCARENOTE ---
Patient reassessed. Verbalizes not being able to sleep. MET[employer] FURNITURE GLAZIER paged for melatonin. Melatonin 5 mg ordered.
[2024-12-03] MEDS: MELATONIN 5 MG PO ×2 (00:44→22:53)
--- NOTE | 2024-12-03 04:40 | PTCARENOTE ---
Patient's SpO2 at 77% with lowest at 66%. Midflow at 15L with SaO2 improvement of 75%. Discussed with the patient need for either BiPAP or nonrebreather mask. Patient declined despite teaching of needing adequate ventilation. The patient's concern
regarding utilizing a 'mask' is discomfort and having 'cotton mouth.' discussed mouth swabs with the patient and he declined. JUAN Quiñones made aware and at the bedside. RT paged and is at the bedside. Nonrebreather placed with midflow and SpO2
improved to 95%. Continued educating the patient on need for adequate oxygenation. When asked regarding course of care and code status, the patient verbalized 'wanting everything done.' Message relaid to PROJECTION CAMERA OPERATOR. PAtient's now on 15L midflow oxygen, and
50% venturi mask.
[2024-12-03 04:47] LABS: Hematocrit 28.6 % (39.0-52.0); Hemoglobin 8.4 g/dL (13.0-18.0); Mean Corp Hgb Conc. 29.4 g/dL (33.0-37.0); Mean Corpuscular Hgb 29.2 pg (27.0-31.0); Mean Corpuscular Volume 99.3 fL (80.0-94.0); Mean Platelet Volume 9.5 fL (7.4-10.4); Platelet Count 545 10^3/uL (130-400); Red Blood Cell Count 2.88 10^6/uL (4.70-6.10); Red Cell Dist. Width 15.9 % (11.5-14.5); White Blood Cell Count 22.5 10^3/uL (4.8-10.8)
[2024-12-03 05:06] LABS: Blood Urea Nitrogen 22 mg/dl (9-20); Calcium 8.8 mg/dl (8.4-10.2); Chloride 84 mmol/L (98-107); Estimated Creatinine Clearance 74 ml/min; Glucose 157 mg/dl (70-99); Potassium 3.7 mmol/L (3.5-5.1); Sodium 131 mmol/L (135-145); eGFR > 60.00
[2024-12-03 06:00] LABS: Carbon Dioxide 45 mmol/L (22-30)
[2024-12-03] MEDS: SPIRIVA RESPIMAT 2.5 MCG 2 PUFF INH (07:04)
[2024-12-03] MEDS: SYMBICORT 80/4.5 MCG INHALER 2 PUFF INH ×2 (07:04→19:31)
[2024-12-03] MEDS: NOVOLOG FLEXPEN-LOW RESISTANCE 1 UNITS SC (07:39)
[2024-12-03] MEDS: FOLVITE 1 MG PO (07:41)
[2024-12-03] MEDS: FEOSOL 325 MG PO ×2 (07:41→19:51)
[2024-12-03] MEDS: VITAMIN B1 100 MG PO (07:41)
[2024-12-03] MEDS: LASIX 40 MG IV ×2 (07:41→15:37)
[2024-12-03] MEDS: PACERONE 200 MG PO (07:42)
[2024-12-03 07:51] LABS: Glucose - Point of Care 166 mg/dl (70-99)
[2024-12-03] MEDS: TOPROL XL 50 MG PO ×2 (08:10→19:51)
--- NOTE | 2024-12-03 08:20 | W.PN.HOSP.TC ---
Today's Communication/Plan
-
Focus on lung until chest tube is ready to come out
Then optimize hear meds as best as possible
Then work with PT, nutrition
Then assess best DC plan which may be rehab or alf instead of home
Assessment / Plan
Assessment / Plan
A/P: Patient is a 74y M with PMH significant for chronic combined respiratory failure, severe COPD, CHF and ASCVD who presents to ED complaining of increased SOB and new cough.
1. Acute on Chronic Hypoxemic and Hypercapnic Respiratory Failure, multifactorial in nature
- Respiratory failure likely multifactorial and secondary to CHF, pleural effusion +/- respiratory infection / bacterial pneumonia.
- Continue supportive care including O2 supplementation, NIPPV as tolerated, etc.
See next items for each specific problem
Note findings on CT: Chest 12/02:
Incidental findings:
#Fractures of the right fourth through 11th ribs, which morphologically appear to be old.
#Small focus of reticular and small nodular opacities in the anteromedial left upper lobe, which could represent scarring or a small focus of small airway pneumonitis, new since prior CT examination.
#Both adrenal glands are enlarged, incompletely included on the [id number], similar appearance to prior CT, compatible with hyperplasia and/or adenomas. Of note, imaging studies do not address the functional status of an adrenal mass. If there
are clinical signs or symptoms of adrenal hyperfunction, biochemical testing may be required to determine if the lesion is excreting excess hormone.
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
2. Right Pleural Effusion, chronic since July, loculated - with chest tube in
-Moderate to large right pleural effusion.
-S/P IR chest tube placement- report /fluid eval pending
-Chest tube settings per IR
-Pulmonary consultation appreciated
-IR placed chest tube 12/02- continue per IR recs
Tube continues to drain
Keep tube in today
Re-eval daily until it stops draining
Follow results of cultures and fluid analysis (initial WBCs, but no organisms)
3. Acute on Chronic HFpEF - Weight is increased about 3 kg from discharge.
- Continue Lasix IV BID for now per Cardiology recs
- Follow I/Os, daily weights, etc.
- BP was running low throughout his recent hospitalization as well - and remained stable despite diuresis and BP medications.
- Cardiology evaluation appreciated
4. Leukocytosis likely from a Bronchitis / Pneumonia - Patient with cough and worsened dyspnea.
- COVID and flu negative in the ED.
- IV abx with Zosyn
- Follow fever curve, leukocytosis and monitor for any new / focal symptoms.
5. Severe COPD and MARIJA
- No active wheezing appreciated today.
- NIPPV as patient needs / tolerates
- family states that they have a machine at home today for outpatient use.
Pt not tolerating BIPAP
- Pulmonary - added Spiriva/Symbicort/Acapella
6. Anemia, Macrocytic anemia - possibly related to alcohol. Levels improving today
-Transfuse as necessary. --> 4 units PRBCs so far, last given on 11/23/2024 - not needed today
Underwent EGD/colonoscopy on 11/24/2024 showing:
diffuse severe mucosal changes with discoloration,
granularity and altered texture in the entire examined stomach biopsies taken,
a 3 mm AVM in the gastric body s/p APC,
colonoscopy showed multiple polyps throughout with 3 of them removed and diverticulosis in the left colon
GI recommended outpatient [id number] mass or source of bleeding.
- Suspected recent blood loss s/p GI evaluation during recent stay.
- EGD and colonoscopy without obvious source of bleeding.
- Outpatient capsule study recommended by GI
- Hgb fairly stable compared to recent discharge.
- Continue iron supplementation
- Follow for any changes.
-CBC daily
7. ASCVD - Stable. Cath done during recent visit with non-obstructing coronary disease.
- Continue metoprolol, statin, etc. per Cards recs
- Off of antiplatelets given recent blood loss / suspected GI source. - single agent Eliquis only per Cards due to GI bleed.
8. Paroxysmal Atrial Fibrillation - Stable.
Continue metoprolol.
Continue amiodarone per Cards.
Hold Eliquis acutely and continue to hold for now, for any necessary procedures.
9. DM-II - Stable.
Hold PO medications including newly added SGLT2 inhibitor.
- Follow glucose and cover with SSI for now.
- A1C during recent visit was 5.1%.
10. Benign Hypertension - Currently relatively hypotensive - similar to prior admission.
Cont BB per Cards, hold parameters
- Patient received no lisinopril or isosorbide for the entirety of his recent admission - and BP remained in the 90-100s.
- Plan is to discontinue these mediations and likely not resume upon discharge unless BP significantly changes.
DVT Prophylaxis: SCDs
Code Status: DNR
45 minutes of critical care
Anticipated Discharge: > 48 hours
Subjective/Interval History
-
Date of Service: December 03, 2024
Needed respiratory support overnight. Breathing better this am.
Objective Data
-
Labs:
Laboratory Results
12/03/24 12/03/24
04:05 04:15
WBC 22.5 H
Hgb 8.4 L
Hct 28.6 L
Plt Count 545 H
HCO3 Cancelled
Sodium 131 L
Potassium 3.7
Chloride 84 L
Carbon Dioxide 45 H
BUN 22 H
Creatinine 0.9
Glucose 157 H
Calcium 8.8
Vital Signs:
Vital Signs
Temp Pulse Resp BP Pulse Ox
98.7 F 66 28 118/68 94
12/03/24 07:19 12/03/24 08:10 12/03/24 08:00 12/03/24 08:10 12/03/24 08:13
I&O
12/02/24 12/03/24 12/04/24
06:59 06:59 06:59
Intake Total 1280 / 1280 240 / 240
Output Total 3540 / 3540
Balance -2260 / -2260 240 / 240
Review of Systems
-
History Source: Patient
Constitutional: Reports Fatigue
Respiratory: Reports Trouble Breathing
Psych: Reports Depressed, Sad and Anxious
Physical Exam
-
General: No Apparent Distress and Appears Chronically Ill
HEENT: Nose Appears Normal and Ears Appear Normal
Respiratory: Rhonchi and Crackles
Cardiac: Regular Rhythm and S1/S2
GI: Soft, Nontender and Nondistended
Musculoskeletal: No Clubbing, No Cyanosis, Edema, Right Lower Extrem and Edema, Left Lower Extrem
Skin: Warm and Dry
Neuro: Awake and Alert
Psych: Calm and Depressed
Data Reviewed
-
Labs: Labs Reviewed by me
--- NOTE | 2024-12-03 09:05 | W.PN.INTV ---
Today's Communication / Plan
Recommendations
Follow chest tube output
Daily chest x-ray
Follow DELIO and sedimentation rate
Follow cytology
Follow culture
Continue IV diuretics
Antibiotics will continue: Not entirely convinced that this patient has pneumonia, wait for urine culture
Incentive spirometry
Continue inhalers
No indication for systemic corticosteroids
Wean off oxygen
Assessment
-
74-year-old man with multiple medical problems. Advanced COPD. Chronic hypercapnic and hypoxemic respiratory failure. Coronary artery disease post bypass, peripheral vascular disease, ongoing smoking, alcohol abuse disorder. Recently discharged
from the hospital a few days ago after being admitted with change in mental status, acute hypercapnic on chronic hypercapnic respiratory failure, right pleural effusion, heart failure. Apparently refusing to use BiPAP in the hospital.
Readmitted 12/01/2024 with worsening shortness of breath, cough, leukocytosis. Persistent right pleural effusion.
Acute on chronic hypoxemic respiratory failure-cannot rule out pneumonia/other source including urine as he urinalysis is abnormal/acute on chronic heart failure with preserved ejection fraction.
Required noninvasive mechanical ventilation for increased work of breathing.
Abnormal UA: Possible UTI
Leukocytosis with a left shift
Chronic hypercapnic respiratory failure-appears compensated-likely due to advanced COPD
VBG 7.42/71/54 (12/02/2024)
Chronic right pleural effusions present since July
Right chest tube placement 12/02/2024: Over 1.5 L drained so far clear fluid/pH 7.51/white blood cells 480/93% mononuclear/glucose 170/total protein 3.1/LDH 176/ambulates 56/triglycerides under 30.
Right pleural effusion: 11/21/2024 status post thoracentesis 1900 cc of clear pleural fluid.
Present since July 2024 based on chest x-ray.
CT chest 12/02/2024: Old right 4 through 11 rib fractures
Moderate to large right pleural effusion. Compressive atelectasis. No significant left pleural effusion. Small nodular opacity in the left upper lobe new compared to prior CAT scan.
Possible heart failure component with preserved ejection fraction proBNP in the 5999's
Chronic mAcrocytic anemia
EGD/colonoscopy without a source of bleeding
Status post 4 units of packed red blood cells and recent admission 11/2024
GI note:No significant mass was found. More likely multifactorial with chronic disease plus potentially small bowel angioectasias
-
Recent discharge from the hospital 11/30/2024.
EKG changes initially admitted as ST elevation myocardial infraction alert
Cardiac catheterization 11/21/2024: Nonobstructive coronary artery disease. Elevated LVEDP at 19.
-
Conditions present prior admission:
# Lung nodule 7.4 mm on CAT scan January 2024-due for repeat CT. Request given 11/16/2024.
#Active tobacco smoker-ongoing
# Advanced COPD due to tobacco use not in an acute exacerbation
Chronic hypoxemic respiratory failure 2-3 L of supplemental oxygen.
On Trelegy
Last seen by Dr. Mckeon 11/16/2024
PFT 2022 - 1.43L 46%
#Paroxysmal A-fib/flutter on Eliquis
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
#CAD s/p CABG
#PAD with Hx of right femoral endarterectomy and femoral bypas.
#DM type II (HbA1C: 7.5 on 08/19/2024)
# Hepatic steatosis-mild ascites on ultrasound
#History of hepatitis C
# History of alcohol abuse-patient states no longer using 12/02/2024
# History of tobacco abuse patient states that no longer using 12/02/2024
Assessment and plan:
-
Current presentation could be multifactorial. Concern for sepsis due to leukocytosis with left shift.
I am not convinced that there is right lower lobe pneumonia-patient does have chronic right pleural effusion that appears worse-worsening could be from volume overload his weight is higher. proBNP is elevated-suspect component of acute on chronic
heart failure.
Urinalysis abnormal: Suspect urinary tract infection-symptoms may be related to sepsis.
Patient transferred to intermediate care unit 12/02/2024-pulmonary following for hypercapnic respiratory failure/COPD and pleural effusion.
-
Chronic hypercapnic respiratory failure due to advanced COPD. Compensated.
No evidence for acute exacerbation.
TSH was normal at 0.93 on 11/21/2024
UDS only positive for marijuana.
Alcohol level not detected.
-
VBG appears compensated 12/02/2024
BiPAP ordered but patient not using. He is refusing. Compliance was encouraged.
Mental status baseline 12/03/2024.
Per family he recently obtained BiPAP but patient not using as he has been recently been discharged from the hospital. It is noted in prior admission the patient has been refusing to use it.
Avoid sedatives
Unable to use Diamox due to sulfa allergy.
Continue to follow electrolytes.
-
Acute on chronic hypoxemic respiratory failure: This morning requiring up to 15 L. Saturation is 99%. He looks comfortable.
Improved oxygenation after thoracentesis.
Lung exam was clear 12/03/2024.
Oxygen decreased to 10 L and saturation was holding. Weaned down to baseline of 2 to 3 L.
-
? Sepsis component:
Afebrile, leukocytosis trending lower. Bandemia resolved.
Agree with antibiotics-Zosyn.
COVID-negative/flu negative
Abnormal urinalysis: Cannot rule out UTI as a source for leukocytosis.
Low-grade fever on admission/leukocytosis with left shift.
Follow leukocytosis
Again, not convinced that the patient has pneumonia. However, he does report some increased coughing.
Blood cultures-negative so far
Urine culture-pending
Sputum culture if able-pending
-
Right pleural effusion: It has been present since at least July 2024. Suspect multifactorial, postinfectious, heart disease, perhaps liver disease.
Status post 1900 cc thoracentesis 11/21/2024.
pH 7.61/white blood cells 178/88% mononuclears/total protein 3/LDH 98-suspect pseudo exudate as the patient has been getting diuretics.
Negative cytology and cultures 11/21/2024
Ultrasound of the abdomen 11/21/2024:Does not mention cirrhosis or portal hypertension-has hepatic steatosis.
CRP-134
Sedimentation rate at [facility] pending
-
Given worsening/persistent pleural effusion-last attempt on 11/29/2024 unsuccessful.
Right chest tube placement 12/02/2024: Over 1.5 L drained so far clear fluid/pH 7.51/white blood cells 480/93% mononuclear/glucose 170/total protein 3.1/LDH 176/ambulates 56/triglycerides under 30.
No evidence for infection. 93% mononuclear suggest chronicity. As previously mentioned pleural effusion has been present since July. Possibly multifactorial.
Continue cardiac management-diuresis
Follow cytology
Follow-up final culture
Daily chest x-ray,
Follow chest tube output.
-
Prior CT chest January 2024 showed no evidence for any pulmonary mass on the right.
He has a groundglass pulmonary nodule that needs to be followed. He has a request for repeat CT chest given by me to him on 11/16/2024. Stable CAT scan 12/01/2024.
Doubt malignant or infectious in etiology-pleural fluid culture negative.
-
Heart failure component with preserved ejection fraction/atrial fibrillation: Weight is elevated/proBNP elevated.
EKG this admission reviewed: Nonischemic
Continue Lasix 40 mg IV every 12. proBNP elevated/ weight is increased.
Restart Eliquis
Cardiology following.
-
In regards to COPD: Not in exacerbation. Patient has bronchitic cough.
On his recent outpatient follow-up with Dr. Mckeon 11/16/2024: The plan was to transition him to nebulized therapy with Brovana/Pulmicort and Yupelri.(This is pending)
He has been using Trelegy. Start Spiriva and Symbicort while in the hospital.
Acapella device-encourage.
Nebulizers as needed
Patient states that he no longer is smoking cigarettes.
-
Macrocytic anemia-possibly related to alcohol. Hemoglobin of 6.1 on 11/23/2024. New development since late last year on anticoagulation.
Hemoglobin is stable to 07/14/2025. No evidence for acute bleeding
Patient is on Eliquis/Plavix.
Transfuse as necessary. --> 4 units PRBCs since admission, last given on 11/23/2024
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
polyps throughout with 3 of them removed and diverticulosis in the left colon
GI recommended outpatient [id number] mass or source of bleeding.
-
Type 2 diabetes-defer to primary team
-
DVT prophylaxis: Eliquis restarted 12/03/2024.
-
Follow-up with Dr. Mckeon as previously scheduled after discharge.
Daughter Ariane has recently gotten involved with his father's care. Per nursing this admission patient was not sure about the DNR. This will need to be discussed with daughter.
-
Pulmonary will continue to follow.
Subjective Dataa
Subjective Data
Date of Service:
Date of Service: December 03, 2024
Chief Complaint: Pulmonary Follow Up (Pleural effusion/hypoxemic and hypercapnic respiratory failure)
Subjective:
This morning he feels improved
Did not use BiPAP overnight.
Review of Systems
General: Fever (n)
Cardiopulmonary: Dyspnea (improved)
GI: Abdominal Pain (n) and Nausea (n)
Neuro: Headache (n)
Objective Data
Data Reviewed
Vital Signs / I&O / Oxygen:
Vital Signs
Temp Pulse Resp BP Pulse Ox
98.7 F 75 18 118/68 94
12/03/24 07:19 12/03/24 09:01 12/03/24 09:01 12/03/24 08:10 12/03/24 09:01
Intake and Output
12/02/24 12/03/24 12/04/24
06:59 06:59 06:59
Intake Total 1280 / 1280 240 / 240
Output Total 3540 / 3540
Balance -2260 / -2260 240 / 240
SaO2 94
Nasal Cannula flow liters per 8
minute
Physical Exam
General: Comfortable (at rest)
HEENT: Normocephalic
Cardiovascular: S1-S2 and Regular Rhythm
Respiratory: Clear, Chest Tube (Right: No air leak. Clear fluid) and Other (Decreased breath sounds in the right base)
GI: Soft and Non Distended
Neurology: Awake, AO x 3 and No Motor Deficits
Skin: Warm
Labs/Micro/Reports
Lab Data
12/03/24 04:15
12/03/24 04:15
Laboratory Results
12/03/24
04:05
pH Cancelled
pCO2 Cancelled
pO2 Cancelled
HCO3 Cancelled
O2 Delivery Level Cancelled
Microbiology
12/02/24 12:52 Pleural Fluid Body Fluid Culture - Preliminary
No Growth After 18-24 Hours
12/02/24 12:52 Pleural Fluid Gram Stain - Preliminary
12/01/24 23:21 Blood/Venous Blood Culture - Preliminary
No Growth in 24 hours- Final report to follow
12/01/24 23:21 Blood/Venous Blood Culture - Preliminary
No Growth in 24 hours- Final report to follow
12/02/24 12:52 Pleural Fluid Fungal Culture - Preliminary
Culture in progress.
Positive cultures are reported as soon as detected.
Final report to follow in four to five weeks.
12/01/24 23:21 Nasal Swab Influenza Types A & B (MAT) - Final
Negative for Influenza A & B, NAAT
Negative results must be combined with clinical observations
and patient history.
Nucleic Acid Amplification test (NAAT)performed on the
[employer] platform.
[2024-12-03] MEDS: ELIQUIS 5 MG PO ×2 (10:08→19:51)
[2024-12-03 10:15] LABS: Erythrocyte Sed Rate 64 mm/hour (0-20)
--- NOTE | 2024-12-03 10:16 | PTCARENOTE ---
Patient agitated and cursing at staff. Stating 'you ruined my day' when RN gave patient the wrong sugar packet. Followed by patient throwing sugar packets. Patient informed that behavior will not be tolerated.
--- NOTE | 2024-12-03 11:05 | PTCARENOTE ---
Patient assisted oob to chair by PT/OT. After 30 minutes, patient requesting to use BSC. Assisted x1RW to BSC for large brown, formed BM. Patient requesting to get back in bed after. Educated on benefits of benefits of staying in chair. Patient
refused. Patient back in bed. Vitals stable. Bed alarm on.
--- NOTE | 2024-12-03 11:27 | W.PN.CARDCBS ---
Today's Communication / Plan
-
Continue IV Lasix and follow creatinine/electrolytes
Impression / Plan
-
Dr. Modesta Pretty
Decision Unit Rn: Dr Riggs
Impression:
Presentation with SOB, cough
Acute on Chronic Hypoxemic and Hypercapnic Respiratory Failure
PNA vs bronchitis
Acute on chronic HFpEF
R Pleural effusion
s/p right sided thora for 1.9 L 11/21/24
s/p attempted thora 11/29/24, felt to be loculated as only 5cc out
CAD
s/p remote CABG at [facility] with SHEEHAN to LAD
PCI with unclear details at [facility]
Out of hospital STEMI alert 11/21/2024, no evidence of culprit lesion by cardiac cath to explain patient's presentation
GI bleed/macrocytic anemia s/p EGD/colon 11/24/24 with 1 angioectasia status post APC, and 3 colon polyp status post removal but no clear etiology of acute anemia
History of CVA 2010
Paroxysmal atrial fibrillation/flutter
Chronic Eliquis OAC
Chronic amiodarone therapy
PAD
s/p right femoral endarterectomy with saphenous vein angioplasty and right femoral to PT bypass 07/1123
chronic Plavix therapy
Poor medical compliance
Osteomyelitis toe
COPD
HTN
HLD
DM2
Hep C, treated and cleared infection
Ongoing tobacco use
h/o bedbugs 05/2024 admission
DNR code status
Dobutamine nuclear stress test 07/29/23 finds large inferior and basal inferior septal infarct without stephanie-infarct ischemia. Baseline LVEF 43%
Echo 07/28/23 finds normal LV size and function with LVEF in the low normal range estimated at 51% with basal to mid inferior wall severe hypokinesis. No significant valvular disease.
Echo 06/12/24: EF 50%, basal inferior wall hypokinetic on parasternal short axis views, RV mildly dilated, mildly dilated RA, no significant valvular disease noted
Echo 11/13/24: EF 50%, stage II diastolic dysfunction, trace MR, mild TR with PAP 44 mmHg no
Echo 11/21/24: Ejection fraction 50%, basal inferior akinesis, mild TR, PA systolic 44 mmHg, enlarged right ventricle with right ventricular hypokinesis
Cardiac catheterization 11/21/2024
LM: Large with mild disease
LAD: Large vessel that is proximally occluded within stent just after the takeoff of a large septal with the mid to distal vessel filled by patent SHEEHAN to LAD.
LCx: Large vessel with mild to moderate nonobstructive disease including a 50% stenosis in the mid body of the OM2
RCA: The proximal to distal vessel contains overlapping stents with mild ISR. There is a small region of haziness in the distal vessel as well as in the bifurcation of the distal RCA and RPDA/RPAV. This like represents eccentric atherosclerotic
plaque. There is DIMITRI-3 flow distally.
BYPASS GRAFT ANGIOGRAPHY:
SHEEHAN-LAD: the HSEEHAN is taken as a pedicle and forms an anastomosis with the mid-LAD.
There are clips on the right side of the aorta possible suggestive of an additional bypass graft. Non selective aortogram was performed and did not demonstrate presence of additional patent grafts.
Plan:
-Patient with recent admission to [facility], discharged 11/30/2024 presents back to [facility] last evening due to shortness of breath and hacking cough. Noted to be hypoxic and with temp of 100.2. Concern for
pneumonia/bronchitis. COVID and flu negative. On antibiotics per primary service
-Noted to have recurrent right-sided pleural effusion on imaging, moderate to large by CT. Now s/p chest tube placement.
#HF recovered EF (LVEF 50%):
-Weight is lowest on record
-proBNP elevated, but lower than prior admission
-Okay to continue IV Lasix 40 mg twice daily for now in an attempt to optimize his volume status
-Follow Cr which is stable
-SGLT2 on hold while UCx is pending
#CAD
-Plavix stopped last admission due to GI bleeding
-Continue Eliquis as single agent
-High intensity statin
#H//o pAFib
-Remains in sinus rhythm on review of telemetry and EKG
-Continue amiodarone and metoprolol
-Eliquis for cardioembolix ppx
HPI: This is a 74-year-old man with multiple medical conditions including coronary artery disease status post distant CABG, who presents with loss of consciousness and lateral ST elevations on initial EKG. Given his history and findings the Cath
Lab was activated for emergent coronary angiography which did not reveal a culprit to explain his presentation. Relevant findings include a new large right pleural effusion and new severe anemia with hemoglobin of 6 from prior baseline of 12. 2
units of blood were ordered. The patient will be admitted to the hospitalist service for further workup and management with cardiology following. Administered 2 units of blood and trend hemoglobin. Further workup to determine cause of anemia.
For now, would hold Eliquis and Plavix while working up cause of anemia.
Resume patient's home diuretic regimen, but hold additional GDMT for now given mild hypotension until hemodynamics allow restart.
Progress Note - Decision Unit Rn
Subjective
Date of Service: December 03, 2024
No acute overnight events. Patient's resting comfortably in the medical ICU. No chest pain. Not reporting any shortness of breath.
Objective
Labs:
12/03/24 04:15
12/03/24 04:15
Labs
Hgb 8.4 g/dL (13.0-18.0) L 12/03/24 04:15
Hct 28.6 % (39.0-52.0) L 12/03/24 04:15
Plt Count 545 10^3/uL (130-400) H 12/03/24 04:15
PT 14.1 Sec (11.4-14.6) 12/01/24 23:22
INR 1.06 12/01/24 23:22
APTT 26.6 Sec (23.4-35.0) 12/01/24 23:22
Sodium 131 mmol/L (135-145) L 12/03/24 04:15
Potassium 3.7 mmol/L (3.5-5.1) 12/03/24 04:15
BUN 22 mg/dl (9-20) H 12/03/24 04:15
Creatinine 0.9 mg/dL (0.7-1.3) 12/03/24 04:15
Glucose 157 mg/dl (70-99) H 12/03/24 04:15
Vital Signs and I&O:
Vital Signs
Temp Pulse Resp BP Pulse Ox
98.7 F 84 21 108/50 93
12/03/24 07:19 12/03/24 11:00 12/03/24 11:00 12/03/24 10:31 12/03/24 11:00
Vital Signs
Temp Pulse Resp BP Pulse Ox
98.7 F 84 21 108/50 93
12/03/24 07:19 12/03/24 11:00 12/03/24 11:00 12/03/24 10:31 12/03/24 11:00
Intake & Output
12/01/24 12/02/24 12/03/24 12/04/24
06:59 06:59 06:59 06:59
Intake Total 1280 / 1280 240 / 240
Output Total 3540 / 3540 650 / 650
Balance -2260 / -2260 -410 / -410
Physical Exam
Physical Exam
Gen: NAD, AAOx3
HEENT: NC/AT, sclera anicteric
Neck: No JVD
CV: RRR, NL s1/s2
Lungs: Chest tube in place with serosanguineous drainage, on mid flow O2
Abd: S/ND
Ext: No LE edema
Skin: Warm, dry
Neuro: Non-focal
[2024-12-03] MEDS: NOVOLOG FLEXPEN-LOW RESISTANCE 3 UNITS SC (11:36)
[2024-12-03 11:39] LABS: Glucose - Point of Care 291 mg/dl (70-99)
--- NOTE | 2024-12-03 12:15 | PTCARENOTE ---
Patient's bp running 80/40's. MAP <65. HR 60-70's. Urine culture +ecoli. Hospitalist notified. Patient alert and talking with staff.
--- NOTE | 2024-12-03 16:15 | PTCARENOTE ---
Patient chugging small cups of water throughout shift despite repeated reminders of fluid restriction. Patient angry the cups are small and demanding water whenever staff enters room. Attempted to educate patient on heart failure, fluid restriction,
worsening signs/symptoms, diuresis etc. Patient uninterested. Stating 'I am going to bring in my attorney lawyer' and 'I am going to from [place]'. Patient offered swabs; refused. Patient also encouraged to sip on drinks or do ice chips as an
alternative. Patient aware of fluid restriction amount and how much has been consumed today. Patient threatening to leave AMA if fluid restriction is enforced once met.
[2024-12-03] MEDS: NOVOLOG FLEXPEN-LOW RESISTANCE 2 UNITS SC (16:58)
[2024-12-03 17:11] LABS: Glucose - Point of Care 219 mg/dl (70-99)
--- NOTE | 2024-12-03 20:00 | PTCARENOTE ---
Pt received awake alert and oriented. R chest tube intact to suction. Assessment as charted. No complaints offered.
[2024-12-03 21:28] LABS: Glucose - Point of Care 295 mg/dl (70-99)
[2024-12-03] MEDS: LIPITOR 80 MG PO (22:53)
[2024-12-03] MEDS: REQUIP 0.5 MG PO (22:53)
[2024-12-04] VITALS (12 sets, daily range): BP systolic 107–124; BP diastolic 53–71; BMI 24.1
[2024-12-04 04:44] LABS: Hematocrit 27.9 % (39.0-52.0); Hemoglobin 8.2 g/dL (13.0-18.0); Mean Corp Hgb Conc. 29.4 g/dL (33.0-37.0); Mean Corpuscular Volume 98.6 fL (80.0-94.0); Mean Platelet Volume 9.4 fL (7.4-10.4); Platelet Count 531 10^3/uL (130-400); Red Blood Cell Count 2.83 10^6/uL (4.70-6.10); Red Cell Dist. Width 15.9 % (11.5-14.5)
[2024-12-04] MEDS: TYLENOL 650 MG PO ×2 (04:51→08:56)
--- NOTE | 2024-12-04 05:00 | PTCARENOTE ---
Pt slept at intervals. No change in assessment.
[2024-12-04 05:09] LABS: Blood Urea Nitrogen 19 mg/dl (9-20); Calcium 8.6 mg/dl (8.4-10.2); Chloride 85 mmol/L (98-107); Estimated Creatinine Clearance 95 ml/min; Glucose 133 mg/dl (70-99); Potassium 3.3 mmol/L (3.5-5.1); Sodium 134 mmol/L (135-145); eGFR > 60.00
[2024-12-04] MEDS: ZOSYN 50 IV ×4 (05:41→23:00)
[2024-12-04 07:13] LABS: Carbon Dioxide 47 mmol/L (22-30)
--- NOTE | 2024-12-04 07:46 | W.PN.INTV ---
Today's Communication / Plan
Recommendations
Diuresis as tolerated
Monitor chest tube output
Follow chest x-ray
Wean oxygen
Increase activity
Stable for transfer to telemetry-pulmonary will follow briefly and follow as an outpatient
Assessment
-
74-year-old man with multiple medical problems. Advanced COPD. Chronic hypercapnic and hypoxemic respiratory failure. Coronary artery disease post bypass, peripheral vascular disease, ongoing smoking, alcohol abuse disorder. Recently discharged
from the hospital a few days ago after being admitted with change in mental status, acute hypercapnic on chronic hypercapnic respiratory failure, right pleural effusion, heart failure. Apparently refusing to use BiPAP in the hospital.
Readmitted 12/01/2024 with worsening shortness of breath, cough, leukocytosis. Persistent right pleural effusion.
Acute on chronic hypoxemic respiratory failure-cannot rule out pneumonia/other source including urine as he urinalysis is abnormal/acute on chronic heart failure with preserved ejection fraction.
Required noninvasive mechanical ventilation for increased work of breathing.
Abnormal UA: Possible UTI
Leukocytosis with a left shift
Chronic hypercapnic respiratory failure-appears compensated-likely due to advanced COPD
VBG 7.42/71/54 (12/02/2024)
Chronic right pleural effusions present since July
Right chest tube placement 12/02/2024: Over 1.5 L drained so far clear fluid/pH 7.51/white blood cells 480/93% mononuclear/glucose 170/total protein 3.1/LDH 176/ambulates 56/triglycerides under 30.
Right pleural effusion: 11/21/2024 status post thoracentesis 1900 cc of clear pleural fluid.
Present since July 2024 based on chest x-ray.
CT chest 12/02/2024: Old right 4 through 11 rib fractures
Moderate to large right pleural effusion. Compressive atelectasis. No significant left pleural effusion. Small nodular opacity in the left upper lobe new compared to prior CAT scan.
Possible heart failure component with preserved ejection fraction proBNP in the 5999's
Chronic mAcrocytic anemia
EGD/colonoscopy without a source of bleeding
Status post 4 units of packed red blood cells and recent admission 11/2024
GI note:No significant mass was found. More likely multifactorial with chronic disease plus potentially small bowel angioectasias
-
Recent discharge from the hospital 11/30/2024.
EKG changes initially admitted as ST elevation myocardial infraction alert
Cardiac catheterization 11/21/2024: Nonobstructive coronary artery disease. Elevated LVEDP at 19.
-
Conditions present prior admission:
# Lung nodule 7.4 mm on CAT scan January 2024-due for repeat CT. Request given 11/16/2024.
#Active tobacco smoker-ongoing
# Advanced COPD due to tobacco use not in an acute exacerbation
Chronic hypoxemic respiratory failure 2-3 L of supplemental oxygen.
On Trelegy
Last seen by Dr. Mckeon 11/16/2024
PFT 2022 - 1.43L 46%
#Paroxysmal A-fib/flutter on Eliquis
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
#CAD s/p CABG
#PAD with Hx of right femoral endarterectomy and femoral bypas.
#DM type II (HbA1C: 7.5 on 08/19/2024)
# Hepatic steatosis-mild ascites on ultrasound
#History of hepatitis C
# History of alcohol abuse-
Patient states no longer using 12/02/2024
# History of tobacco abuse patient states that no longer using 12/02/2024
Assessment and plan:
Respiratory status relatively stable
Continue supplemental oxygen-attempt to wean
Incentive spirometry
Symbicort and Spiriva continue-uses Trelegy as an outpatient
Nebulizers as needed
Aspiration precautions
BiPAP as needed-was refusing
Thoracentesis 11/21/24--1900 mL
Status post right chest tube 12/02/2024
Monitor chest tube output--2.6 L on 12/03/2024
Follow chest x-ray
Check cultures
Urine culture with E. coli
Pleural fluid no growth
Influenza negative
Blood cultures negative
Norepinephrine as needed
Empiric antibiotics-on Zosyn
Diuresis as tolerated
Monitor renal function, electrolytes, intake/output, lower extremity edema and weight
Replace electrolytes as needed
Unable to use Diamox due to sulfa allergy
Cardiology following-correspondence reviewed
Eliquis continues
On amiodarone [address] chest January 2024 showed no evidence for any pulmonary mass on the right.
He has a groundglass pulmonary nodule that needs to be followed. He has a request for repeat CT chest given by Dr. Mckeon to him on 11/16/2024. Stable CAT scan 12/01/2024.
Doubt malignant or infectious in etiology-pleural fluid culture negative.
Follow hemoglobin-no evidence for acute bleeding
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
polyps throughout with 3 of them removed and diverticulosis in the left colon
Transfuse as needed
Outpatient GI evaluation
Monitor blood sugar
Insulin supplementation as needed
DVT prophylaxis-on Eliquis
Nutrition
Early mobilization
Stable for transfer to telemetry-pulmonary will continue to follow
Follow-up with Dr. Mckeon as previously scheduled after discharge.
Daughter Ariane has recently gotten involved with his father's care. Per nursing this admission patient was not sure about the DNR. This will need to be discussed with daughter.
Subjective Dataa
Subjective Data
Date of Service:
Date of Service: December 04, 2024
Chief Complaint: Consulting Psychologist Follow Up and Pulmonary Follow Up (Pleural effusion/hypoxemic and hypercapnic respiratory failure)
Subjective:
No complaints of shortness of breath, chest tube site pain, still with some drainage, no abdominal pain
Review of Systems
General: Other (Per HPI)
Objective Data
Data Reviewed
Vital Signs / I&O / Oxygen:
Vital Signs
Temp Pulse Resp BP Pulse Ox
98.1 F 60 20 113/58 100
12/04/24 04:00 12/04/24 06:00 12/04/24 06:00 12/04/24 06:00 12/04/24 06:00
Intake and Output
12/03/24 12/04/24 12/05/24
06:59 06:59 06:59
Intake Total 1280 / 1280 1600 / 1600
Output Total 3540 / 3540 2405 / 2405
Balance -2260 / -2260 -805 / -805
SaO2 100
Nasal Cannula flow liters per 10
minute
Physical Exam
General: Respiratory Distress (n) and Comfortable (at rest)
HEENT: Normocephalic
Cardiovascular: Regular Rhythm
Respiratory: Clear, Chest Tube (Right: No air leak. Clear fluid) and Other (Decreased breath sounds in the right base)
GI: Soft and Non Distended
Neurology: Awake, Alert and No Motor Deficits
Skin: Warm, Cyanosis (n) and Jaundice
Labs/Micro/Reports
Lab Data
12/04/24 04:32
12/04/24 04:32
Microbiology
12/01/24 23:21 Blood/Venous Blood Culture - Preliminary
No Growth in 48 hours- Final report to follow
12/01/24 23:21 Blood/Venous Blood Culture - Preliminary
No Growth in 48 hours- Final report to follow
12/01/24 23:35 Urine Urine Culture - Preliminary
Escherichia coli
12/02/24 12:52 Pleural Fluid Body Fluid Culture - Preliminary
No Growth After 18-24 Hours
12/02/24 12:52 Pleural Fluid Gram Stain - Preliminary
12/02/24 12:52 Pleural Fluid Fungal Culture - Preliminary
Culture in progress.
Positive cultures are reported as soon as detected.
Final report to follow in four to five weeks.
12/01/24 23:21 Nasal Swab Influenza Types A & B (MAT) - Final
Negative for Influenza A & B, NAAT
Negative results must be combined with clinical observations
and patient history.
Nucleic Acid Amplification test (NAAT)performed on the
[employer] platform.
[2024-12-04] MEDS: SYMBICORT 80/4.5 MCG INHALER 2 PUFF INH ×2 (08:15→19:30)
[2024-12-04] MEDS: SPIRIVA RESPIMAT 2.5 MCG 2 PUFF INH (08:15)
[2024-12-04] MEDS: TOPROL XL 50 MG PO ×2 (08:41→20:10)
[2024-12-04] MEDS: PACERONE 200 MG PO (08:41)
[2024-12-04] MEDS: VITAMIN B1 100 MG PO (08:41)
[2024-12-04] MEDS: ELIQUIS 5 MG PO ×2 (08:41→20:10)
[2024-12-04] MEDS: FOLVITE 1 MG PO (08:41)
[2024-12-04] MEDS: LASIX 40 MG IV ×2 (08:42→16:49)
[2024-12-04] MEDS: FEOSOL 325 MG PO ×2 (08:42→20:10)
[2024-12-04] MEDS: NOVOLOG FLEXPEN-LOW RESISTANCE 3 UNITS SC (08:47)
[2024-12-04 08:51] LABS: Glucose - Point of Care 286 mg/dl (70-99)
--- NOTE | 2024-12-04 09:32 | W.PN.CARDCBS ---
Today's Communication / Plan
-
Continue IV Lasix
He remains on 6 L of oxygen
Continue chest tube
Impression / Plan
-
Dr. Modesta Pretty
Supervisor Chassis Assembly: Dr Riggs
Impression:
Presentation with SOB, cough
Acute on Chronic Hypoxemic and Hypercapnic Respiratory Failure
PNA vs bronchitis
Acute on chronic HFpEF
R Pleural effusion
s/p right sided thora for 1.9 L 11/21/24
s/p attempted thora 11/29/24, felt to be loculated as only 5cc out
CAD
s/p remote CABG at [facility] with SHEEHAN to LAD
PCI with unclear details at [facility]
Out of hospital STEMI alert 11/21/2024, no evidence of culprit lesion by cardiac cath to explain patient's presentation
GI bleed/macrocytic anemia s/p EGD/colon 11/24/24 with 1 angioectasia status post APC, and 3 colon polyp status post removal but no clear etiology of acute anemia
History of CVA 2010
Paroxysmal atrial fibrillation/flutter
Chronic Eliquis OAC
Chronic amiodarone therapy
PAD
s/p right femoral endarterectomy with saphenous vein angioplasty and right femoral to PT bypass 07/1123
chronic Plavix therapy
Poor medical compliance
Osteomyelitis toe
COPD
HTN
HLD
DM2
Hep C, treated and cleared infection
Ongoing tobacco use
h/o bedbugs 05/2024 admission
DNR code status
Dobutamine nuclear stress test 07/29/23 finds large inferior and basal inferior septal infarct without stephanie-infarct ischemia. Baseline LVEF 43%
Echo 07/28/23 finds normal LV size and function with LVEF in the low normal range estimated at 51% with basal to mid inferior wall severe hypokinesis. No significant valvular disease.
Echo 06/12/24: EF 50%, basal inferior wall hypokinetic on parasternal short axis views, RV mildly dilated, mildly dilated RA, no significant valvular disease noted
Echo 11/13/24: EF 50%, stage II diastolic dysfunction, trace MR, mild TR with PAP 44 mmHg no
Echo 11/21/24: Ejection fraction 50%, basal inferior akinesis, mild TR, PA systolic 44 mmHg, enlarged right ventricle with right ventricular hypokinesis
Cardiac catheterization 11/21/2024
LM: Large with mild disease
LAD: Large vessel that is proximally occluded within stent just after the takeoff of a large septal with the mid to distal vessel filled by patent SHEEHAN to LAD.
LCx: Large vessel with mild to moderate nonobstructive disease including a 50% stenosis in the mid body of the OM2
RCA: The proximal to distal vessel contains overlapping stents with mild ISR. There is a small region of haziness in the distal vessel as well as in the bifurcation of the distal RCA and RPDA/RPAV. This like represents eccentric atherosclerotic
plaque. There is DIMITRI-3 flow distally.
BYPASS GRAFT ANGIOGRAPHY:
SHEEHAN-LAD: the SHEEHAN is taken as a pedicle and forms an anastomosis with the mid-LAD.
There are clips on the right side of the aorta possible suggestive of an additional bypass graft. Non selective aortogram was performed and did not demonstrate presence of additional patent grafts.
Plan:
Hard to tell how much of shortness of breath is pulmonary versus CHF
Continue IV Lasix with stable renal function
Continue chest tube
He remains on 6 L of oxygen
SGLT2 on hold while UCx is pending
Plavix stopped last admission due to GI bleeding
Continue Eliquis as single agent
High intensity statin
Remains in sinus rhythm on review of telemetry and EKG
Continue amiodarone, metoprolol and Eliquis
PREADMIT DATA
-Patient with recent admission to [facility], discharged 11/30/2024 presents back to [facility] last evening due to shortness of breath and hacking cough. Noted to be hypoxic and with temp of 100.2. Concern for
pneumonia/bronchitis. COVID and flu negative. On antibiotics per primary service
-Noted to have recurrent right-sided pleural effusion on imaging, moderate to large by CT. Now s/p chest tube placement.
HPI: This is a 74-year-old man with multiple medical conditions including coronary artery disease status post distant CABG, who presents with loss of consciousness and lateral ST elevations on initial EKG. Given his history and findings the Cath
Lab was activated for emergent coronary angiography which did not reveal a culprit to explain his presentation. Relevant findings include a new large right pleural effusion and new severe anemia with hemoglobin of 6 from prior baseline of 12. 2
units of blood were ordered. The patient will be admitted to the hospitalist service for further workup and management with cardiology following. Administered 2 units of blood and trend hemoglobin. Further workup to determine cause of anemia.
For now, would hold Eliquis and Plavix while working up cause of anemia.
Resume patient's home diuretic regimen, but hold additional GDMT for now given mild hypotension until hemodynamics allow restart.
Progress Note - Supervisor Chassis Assembly
Subjective
Date of Service: December 04, 2024
No complaints
Objective
Labs:
12/04/24 04:32
12/04/24 04:32
Labs
Hgb 8.2 g/dL (13.0-18.0) L 12/04/24 04:32
Hct 27.9 % (39.0-52.0) L 12/04/24 04:32
Plt Count 531 10^3/uL (130-400) H 12/04/24 04:32
PT 14.1 Sec (11.4-14.6) 12/01/24 23:22
INR 1.06 12/01/24 23:22
APTT 26.6 Sec (23.4-35.0) 12/01/24 23:22
Sodium 134 mmol/L (135-145) L 12/04/24 04:32
Potassium 3.3 mmol/L (3.5-5.1) L 12/04/24 04:32
BUN 19 mg/dl (9-20) 12/04/24 04:32
Creatinine 0.7 mg/dL (0.7-1.3) 12/04/24 04:32
Glucose 133 mg/dl (70-99) H 12/04/24 04:32
Vital Signs and I&O:
Vital Signs
Temp Pulse Resp BP Pulse Ox
98.1 F 71 20 116/68 97
12/04/24 04:00 12/04/24 08:41 12/04/24 08:32 12/04/24 08:41 12/04/24 08:32
Vital Signs
Temp Pulse Resp BP Pulse Ox
98.1 F 71 20 116/68 97
12/04/24 04:00 12/04/24 08:41 12/04/24 08:32 12/04/24 08:41 12/04/24 08:32
Intake & Output
12/02/24 12/03/24 12/04/24 12/05/24
06:59 06:59 06:59 06:59
Intake Total 1280 / 1280 1600 / 1600
Output Total 3540 / 3540 2405 / 2405
Balance -2260 / -2260 -805 / -805
Physical Exam
Physical Exam
General: Well developed, well nourished in NAD.
Neck: Supple, no JVD, HJR, carotids +2 B/L, no bruits bilaterally.
Heart: Non displaced PMI, RRR, no murmurs, No S3, S4, no rubs.
Lungs: Scattered rhonchi throughout
Extremities: No clubbing, cyanosis or edema bilaterally.
Neuro: Grossly nonfocal, awake, alert and oriented x3.
[2024-12-04] MEDS: NOVOLOG FLEXPEN-LOW RESISTANCE 2 UNITS SC (12:13)
[2024-12-04 12:21] LABS: Glucose - Point of Care 222 mg/dl (70-99)
[2024-12-04 14:10] LABS: Troponin I 0.042 ng/ml
--- NOTE | 2024-12-04 15:26 | W.PN.HOSP.TC ---
Today's Communication/Plan
-
restarted eliquis yesterday
restart PPI
cont diuresis
moderate insulin covg
k repletion
chest tube maintainance
wean o2 as tolerated
downgrade to tele
Assessment / Plan
Assessment / Plan
A/P: Patient is a 74y M with PMH significant for chronic combined respiratory failure, severe COPD, CHF and ASCVD who presents to ED complaining of increased SOB and new cough.
#Acute on Chronic Hypoxemic and Hypercapnic Respiratory Failure, multifactorial in nature
- Respiratory failure likely multifactorial and secondary to CHF, pleural effusion +/- respiratory infection / bacterial pneumonia.
- Continue supportive care including O2 supplementation, NIPPV as tolerated, etc.
See next items for each specific problem
Note findings on CT: Chest 12/02:
Incidental findings:
#Fractures of the right fourth through 11th ribs, which morphologically appear to be old.
#Small focus of reticular and small nodular opacities in the anteromedial left upper lobe, which could represent scarring or a small focus of small airway pneumonitis, new since prior CT examination.
#Both adrenal glands are enlarged, incompletely included on the [id number], similar appearance to prior CT, compatible with hyperplasia and/or adenomas. Of note, imaging studies do not address the functional status of an adrenal mass. If there
are clinical signs or symptoms of adrenal hyperfunction, biochemical testing may be required to determine if the lesion is excreting excess hormone.
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
# Right Pleural Effusion, chronic since July, loculated - with chest tube in
-Moderate to large right pleural effusion.
-S/P IR chest tube placement- fluid appears transudative
-Chest tube settings per IR
-Pulmonary consultation appreciated
-IR placed chest tube 12/02- continue per IR recs
Tube continues to drain
Re-eval daily for clamping trial
Follow results of cultures and fluid analysis (initial WBCs, but no organisms)
# Acute on Chronic HFpEF -
- Continue Lasix IV BID for now per Cardiology recs
- Follow I/Os, daily weights, etc.
# Leukocytosis likely from a Bronchitis / Pneumonia - Patient with cough and worsened dyspnea.
- COVID and flu negative in the ED.
- IV abx with Zosyn
- Follow fever curve, leukocytosis and monitor for any new / focal symptoms.
#Hypokalemia
-monitor and replete
#Hyponatremia
-monitor with diuresis
#UTI
-ecoli
-zosyn
# Severe COPD and MARIJA
- No active wheezing appreciated today.
- NIPPV as patient needs / tolerates
- family states that they have a machine at home today for outpatient use.
Pt not tolerating BIPAP
- Pulmonary - added Spiriva/Symbicort/Acapella
# Anemia, Macrocytic anemia - possibly related to alcohol. Levels improving today
-Transfuse as necessary. --> 4 units PRBCs so far, last given on 11/23/2024 - not needed today
Underwent EGD/colonoscopy on 11/24/2024 showing:
diffuse severe mucosal changes with discoloration,
granularity and altered texture in the entire examined stomach biopsies taken,
a 3 mm AVM in the gastric body s/p APC,
colonoscopy showed multiple polyps throughout with 3 of them removed and diverticulosis in the left colon
GI recommended outpatient [id number] mass or source of bleeding.
- Suspected recent blood loss s/p GI evaluation during recent stay.
- EGD and colonoscopy without obvious source of bleeding.
- Outpatient capsule study recommended by GI
- Hgb fairly stable compared to recent discharge.
- Continue iron supplementation
- Follow for any changes.
-CBC daily
-Start back PPI
# ASCVD - Stable. Cath done during recent visit with non-obstructing coronary disease.
- Continue metoprolol, statin, etc. per Cards recs
- Off of antiplatelets given recent blood loss / suspected GI source. - single agent Eliquis only per Cards due to GI bleed.
# Paroxysmal Atrial Fibrillation - Stable.
Continue metoprolol.
Continue amiodarone per Cards.
Resume Eliquis
#. DM-II - Stable.
Hold PO medications including newly added SGLT2 inhibitor.
- Follow glucose and cover with SSI for now.
- A1C during recent visit was 5.1%.
# Benign Hypertension - Currently relatively hypotensive - similar to prior admission.
Cont BB per Cards, hold parameters
- Patient received no lisinopril or isosorbide for the entirety of his recent admission - and BP remained in the 90-100s.
.
# Lung nodule 7.4 mm on CAT scan January 2024-due for repeat CT. Request given 11/16/2024.
DVT Prophylaxis: Eliquis
Code Status: DNR
Total time spent on today's encounter was 50 minutes which included time spent in counseling the patient/family regarding diagnosis and treatment plan as listed above, goals of care, and symptom management. Case was discussed with nursing staff,
specialists, and care coordinators/case management. All labs and imaging personally reviewed by me. Remainder the time spent in detailed review of previous records, lab data, imaging, and other medical provider documentation.
Anticipated Discharge: > 48 hours
Subjective/Interval History
-
Date of Service: December 04, 2024
no acute events, CT in place
Objective Data
-
Labs:
Laboratory Results
12/04/24
04:32
WBC 15.0 H
Hgb 8.2 L
Hct 27.9 L
Plt Count 531 H
Sodium 134 L
Potassium 3.3 L
Chloride 85 L
Carbon Dioxide 47 H
BUN 19
Creatinine 0.7
Glucose 133 H
Calcium 8.6
Vital Signs:
Vital Signs
Temp Pulse Resp BP Pulse Ox
98.1 F 71 20 116/68 97
12/04/24 04:00 12/04/24 08:41 12/04/24 08:32 12/04/24 08:41 12/04/24 08:32
I&O
12/03/24 12/04/24 12/05/24
06:59 06:59 06:59
Intake Total 1280 / 1280 1600 / 1600
Output Total 3540 / 3540 2405 / 2405
Balance -2260 / -2260 -805 / -805
Review of Systems
-
History Source: Patient
All other systems: Not reviewed unless documented
Physical Exam
-
General: No Apparent Distress and Appears Chronically Ill
HEENT: Nose Appears Normal and Ears Appear Normal
Respiratory: Rhonchi and Crackles
Cardiac: Regular Rhythm and S1/S2
GI: Soft, Nontender and Nondistended
Musculoskeletal: No Clubbing, No Cyanosis, Edema, Right Lower Extrem and Edema, Left Lower Extrem
Skin: Warm and Dry
Neuro: Awake and Alert
Psych: Calm and Depressed
Data Reviewed
-
Diagnostic Radiology: Report Reviewed by me
CT Scan: Report Reviewed by me
Labs: Labs Reviewed by me
--- NOTE | 2024-12-04 15:50 | WOUNDNOTE ---
L MEDIAL LOWER LEG
--- NOTE | 2024-12-04 15:55 | WOUNDNOTE ---
WON RN note: Patient admitted with Pleural effusion and UTI.
See H&P for complete history. Lives with nephew.
PMH: CHF,HEP C, PVD,CAD, NIDDM, CABG, R femoral bypass 2022, cardiac stents,current smoker, obesity.
Wound Location and type/assessment: Patient known to service for same venous ulcers of L leg. Compared to last seen, ulcers more shallow, cluster of sung base mixed with pink. Heels are intact, faint palpable pedal pulses. Very dry skin on legs. L
buttock with small stage 2 PI and blanchable red on R buttock. Air cushion in use while sitting in recliner chair. Elevated legs.
Appetite: Good.
Pressure redistribution devices in place: Air mattress or air overlay. Air chair cushion when sitting.
Plan: Local wound care done on L leg. Silicone foam applied to buttocks. Will order mineral oil to start tomorrow. Recommend leg elevation, weight loss, diabetes management and smoking cessation.
Patient goes to [facility] last apt was 11/10/24.
Will confirm orders with hospitalist and updated nurse. Updated care plan and will follow as needed.
Note to case management of equipment requested for discharge: VN for wound care. Smoking cessation programs. Recommend follow up at wound care center upon discharge.
--- NOTE | 2024-12-04 16:09 | CM ---
Addendum entered by Gloria Owen RN 12/04/24 16:53:
Message from Dr Lagunas, he spoke with daughter re; hospice and would like our hospice nurse to see patient/daughter---> message to [facility]. Hospice referral in [facility].
Plan follow up after seen by Hospice.
Original Note:
Patient who was readmitted with Dx Right Pleural Effusion, HF. O2. Chest tube. Receiving IV Abx, IV Lasix. PT/OT recommend skilled rehab.
Spoke with Janes Mcgill who confirms NIV was delivered to patient's home on 12/01/24.
Met with patient who is known to this CM from prior recent admission. Patient is a vague historian. He says he is unaware he has a chest tube and is asking if he will be discharged to home today.
Spoke with daughter Patricia;
the patient is staying at her 1 story house with a few steps at entrance.
He was independent in ADLs and ambulating.
DME - He has O2, nebulizer, NIV.
He has not been using the NIV continuously.
[facility] - Mod[facility]
Pharmacy - [facility]
Daughter was hoping patient would agree to go to SNF but is aware he has refused in the past. She knows if she doesn't take him home he will only go back to the nephew's house and nephew will not assist him at all.
Daughter expresses distress that patient is hard to manage, is non-compliant with his O2/NIV at times, has been incontinent urine and stool at times, doesn't take his meds on time, and is argumentative with her. She is inquiring about Palliative
Care or Hospice and hoping to speak with MD ---> message to Dr Lagunas.
Plan TBD.
[2024-12-04] MEDS: KCL ELIXIR 40 MEQ PO (16:49)
[2024-12-04] MEDS: PROTONIX 40 MG PO (17:03)
[2024-12-04 17:31] LABS: Glucose - Point of Care 165 mg/dl (70-99)
[2024-12-04] MEDS: NOVOLOG FLEXPEN-MODERATE RESISTANCE 1 UNITS SC (18:01)
[2024-12-04] MEDS: REQUIP 0.5 MG PO (20:10)
[2024-12-04] MEDS: MELATONIN 5 MG PO (20:10)
[2024-12-04] MEDS: LIPITOR 80 MG PO (20:10)
[2024-12-04 21:55] LABS: Glucose - Point of Care 239 mg/dl (70-99)
[2024-12-04] MEDS: OCEAN, SALINE MIST 2 SPRAYS NASAL (22:57)
[2024-12-05] VITALS (14 sets, daily range): BP systolic 107–155; BP diastolic 51–78; PULSE 68; O2SAT 95–96
[2024-12-05] MEDS: MORPHINE SULFATE 2 MG IV (01:37)
[2024-12-05 03:41] LABS: ANA, IgG Reflex to HEp-2 None Detected (None Detected)
[2024-12-05] MEDS: ZOSYN 50 IV ×3 (05:16→23:36)
--- NOTE | 2024-12-05 07:36 | W.PN.INTV ---
Today's Communication / Plan
Recommendations
Diuresis
Monitor chest tube output
Follow occasional radiograph
Antibiotics
Increase activity
Assessment
-
74-year-old man with multiple medical problems. Advanced COPD. Chronic hypercapnic and hypoxemic respiratory failure. Coronary artery disease post bypass, peripheral vascular disease, ongoing smoking, alcohol abuse disorder. Recently discharged
from the hospital a few days ago after being admitted with change in mental status, acute hypercapnic on chronic hypercapnic respiratory failure, right pleural effusion, heart failure. Apparently refusing to use BiPAP in the hospital.
Readmitted 12/01/2024 with worsening shortness of breath, cough, leukocytosis. Persistent right pleural effusion.
Acute on chronic hypoxemic respiratory failure-cannot rule out pneumonia/other source including urine as he urinalysis is abnormal/acute on chronic heart failure with preserved ejection fraction.
Required noninvasive mechanical ventilation for increased work of breathing.
Abnormal UA: Possible UTI
Leukocytosis with a left shift
Chronic hypercapnic respiratory failure-appears compensated-likely due to advanced COPD
VBG 7.42/71/54 (12/02/2024)
Chronic right pleural effusions present since July
Right chest tube placement 12/02/2024: Over 1.5 L drained so far clear fluid/pH 7.51/white blood cells 480/93% mononuclear/glucose 170/total protein 3.1/LDH 176/ambulates 56/triglycerides under 30.
Right pleural effusion: 11/21/2024 status post thoracentesis 1900 cc of clear pleural fluid.
Present since July 2024 based on chest x-ray.
CT chest 12/02/2024: Old right 4 through 11 rib fractures
Moderate to large right pleural effusion. Compressive atelectasis. No significant left pleural effusion. Small nodular opacity in the left upper lobe new compared to prior CAT scan.
Possible heart failure component with preserved ejection fraction proBNP in the 5999's
Chronic mAcrocytic anemia
EGD/colonoscopy without a source of bleeding
Status post 4 units of packed red blood cells and recent admission 11/2024
GI note:No significant mass was found. More likely multifactorial with chronic disease plus potentially small bowel angioectasias
-
Recent discharge from the hospital 11/30/2024.
EKG changes initially admitted as ST elevation myocardial infraction alert
Cardiac catheterization 11/21/2024: Nonobstructive coronary artery disease. Elevated LVEDP at 19.
-
Conditions present prior admission:
# Lung nodule 7.4 mm on CAT scan January 2024-due for repeat CT. Request given 11/16/2024.
#Active tobacco smoker-ongoing
# Advanced COPD due to tobacco use not in an acute exacerbation
Chronic hypoxemic respiratory failure 2-3 L of supplemental oxygen.
On Trelegy
Last seen by Dr. Mckeon 11/16/2024
PFT 2022 - 1.43L 46%
#Paroxysmal A-fib/flutter on Eliquis
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
#CAD s/p CABG
#PAD with Hx of right femoral endarterectomy and femoral bypas.
#DM type II (HbA1C: 7.5 on 08/19/2024)
# Hepatic steatosis-mild ascites on ultrasound
#History of hepatitis C
# History of alcohol abuse-
Patient states no longer using 12/02/2024
# History of tobacco abuse patient states that no longer using 12/02/2024
Assessment and plan:
Respiratory status continues to be relatively stable with significant chest tube output
Continue supplemental oxygen-attempt to wean
Incentive spirometry encouraged
Symbicort and Spiriva continue-uses Trelegy as an outpatient
Nebulizers as needed
Aspiration precautions
BiPAP as needed-was refusing
Thoracentesis 11/21/24--1900 mL
Status post right chest tube 12/02/2024
Monitor chest tube output--2.6 L on 12/03/2024, 80 mL 12/04/2024 and already 550 mL and 12/05/2024
Follow chest x-ray
Check cultures
Urine culture with E. coli
Pleural fluid no growth
Influenza negative
Blood cultures negative
Norepinephrine as needed
Empiric antibiotics-on Zosyn-finite course
Diuresis as tolerated-May convert to oral diuretics in the next 24 hours
Monitor renal function, electrolytes, intake/output, lower extremity edema and weight
Replace electrolytes as needed
Unable to use Diamox due to sulfa allergy
Cardiology following-correspondence reviewed
Eliquis continues
On amiodarone [address] chest January 2024 showed no evidence for any pulmonary mass on the right.
He has a groundglass pulmonary nodule that needs to be followed. He has a request for repeat CT chest given by Dr. Mckeon to him on 11/16/2024. Stable CAT scan 12/01/2024.
Doubt malignant or infectious in etiology-pleural fluid culture negative.
Follow hemoglobin-no evidence for acute bleeding
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
polyps throughout with 3 of them removed and diverticulosis in the left colon
Transfuse as needed
Outpatient GI evaluation
Monitor blood sugar
Insulin supplementation as needed
DVT prophylaxis-on Eliquis
Nutrition
Early mobilization
Patient currently on telemetry-pulmonary will continue to follow
Follow-up with Dr. Mckeon as previously scheduled after discharge.
Daughter Ariane has recently gotten involved with his father's care. Per nursing this admission patient was not sure about the DNR. This will need to be discussed with daughter.
Subjective Dataa
Subjective Data
Date of Service:
Date of Service: December 05, 2024
Chief Complaint: Fashion Director Follow Up and Pulmonary Follow Up (Pleural effusion/hypoxemic and hypercapnic respiratory failure)
Subjective:
No complaints of increased shortness of breath, still with significant chest tube output, no abdominal pain
Review of Systems
General: Other (Per HPI)
Objective Data
Data Reviewed
Vital Signs / I&O / Oxygen:
Vital Signs
Temp Pulse Resp BP Pulse Ox
98 F 56 21 127/55 97
12/05/24 00:00 12/05/24 04:00 12/05/24 04:00 12/05/24 04:00 12/05/24 02:00
Intake and Output
12/04/24 12/05/24 12/06/24
06:59 06:59 06:59
Intake Total 1600 / 1600 1500 / 1500
Output Total 2405 / 2405 1600 / 1600
Balance -805 / -805 -100 / -100
SaO2 97
Nasal Cannula flow liters per 2
minute
Physical Exam
General: Respiratory Distress (n) and Comfortable (at rest)
HEENT: Normocephalic
Cardiovascular: Regular Rhythm
Respiratory: Clear, Chest Tube (Right: No air leak. Clear fluid) and Other (Decreased breath sounds in the right base)
GI: Soft and Non Distended
Neurology: Awake, Alert and No Motor Deficits
Skin: Warm, Cyanosis (n) and Jaundice
Labs/Micro/Reports
Microbiology
12/01/24 23:21 Blood/Venous Blood Culture - Preliminary
No Growth in 72 hours- Final report to follow
12/01/24 23:21 Blood/Venous Blood Culture - Preliminary
No Growth in 72 hours- Final report to follow
12/02/24 12:52 Pleural Fluid Fungal Smear - Final
No yeast or fungal elements seen.
12/02/24 12:52 Pleural Fluid Fungal Culture - Preliminary
Culture in progress.
Positive cultures are reported as soon as detected.
Final report to follow in four to five weeks.
12/01/24 23:35 Urine Urine Culture - Final
Escherichia coli
12/02/24 12:52 Pleural Fluid Body Fluid Culture - Preliminary
No Growth After 48 Hours
12/02/24 12:52 Pleural Fluid Gram Stain - Preliminary
[2024-12-05 07:39] LABS: Glucose - Point of Care 152 mg/dl (70-99)
[2024-12-05 08:04] LABS: Hematocrit 29.8 % (39.0-52.0); Hemoglobin 8.7 g/dL (13.0-18.0); Mean Corp Hgb Conc. 29.2 g/dL (33.0-37.0); Mean Corpuscular Hgb 28.7 pg (27.0-31.0); Mean Corpuscular Volume 98.3 fL (80.0-94.0); Mean Platelet Volume 10.1 fL (7.4-10.4); Platelet Count 619 10^3/uL (130-400); Red Blood Cell Count 3.03 10^6/uL (4.70-6.10); Red Cell Dist. Width 15.8 % (11.5-14.5); White Blood Cell Count 9.8 10^3/uL (4.8-10.8)
[2024-12-05 08:22] LABS: ALT (SGPT) 22 U/L (0-50); AST (SGOT) 29 U/L (17-59); Albumin 2.5 g/dl (3.5-5.0); Alkaline Phosphatase 119 U/L (38-126); Blood Urea Nitrogen 16 mg/dl (9-20); Calcium 8.6 mg/dl (8.4-10.2); Chloride 83 mmol/L (98-107); Estimated Creatinine Clearance 111 ml/min; Glucose 160 mg/dl (70-99); Potassium 4.4 mmol/L (3.5-5.1); Sodium 133 mmol/L (135-145); Total Bilirubin 0.5 mg/dl (0.2-1.3); eGFR > 60.00
[2024-12-05] MEDS: NOVOLOG FLEXPEN-MODERATE RESISTANCE 1 UNITS SC ×2 (08:46→17:02)
[2024-12-05] MEDS: ELIQUIS 5 MG PO ×2 (08:48→21:08)
[2024-12-05] MEDS: PROTONIX 40 MG PO (08:48)
[2024-12-05] MEDS: VITAMIN B1 100 MG PO (08:48)
[2024-12-05] MEDS: PACERONE 200 MG PO (08:48)
[2024-12-05] MEDS: FOLVITE 1 MG PO (08:48)
[2024-12-05] MEDS: FEOSOL 325 MG PO ×2 (08:48→21:08)
[2024-12-05] MEDS: TOPROL XL 50 MG PO ×2 (08:48→21:09)
[2024-12-05] MEDS: HYDROPHOR 1 APPLIC TOPICAL (08:49)
[2024-12-05] MEDS: SPIRIVA RESPIMAT 2.5 MCG 2 PUFF INH (09:10)
[2024-12-05] MEDS: SYMBICORT 80/4.5 MCG INHALER 2 PUFF INH ×2 (09:10→19:19)
[2024-12-05 09:31] LABS: Carbon Dioxide 42 mmol/L (22-30)
--- NOTE | 2024-12-05 09:36 | W.PN.CARDCBS ---
Today's Communication / Plan
-
Oxygenation has improved and now down to 2 L which may be outpatient oxygen dosing
Chest tube continues with significant drainage
Weight may have plateaued and will consider changing to oral Lasix in next 24 to 48 hours
Impression / Plan
-
Dr. Modesta Pretty
Watch Train Inspector: Dr Riggs
Impression:
Presentation with SOB, cough
Acute on Chronic Hypoxemic and Hypercapnic Respiratory Failure
PNA vs bronchitis
Acute on chronic HFpEF
R Pleural effusion/status post chest tube
s/p right sided thora for 1.9 L 11/21/24
s/p attempted thora 11/29/24, felt to be loculated as only 5cc out
CAD
s/p remote CABG at [facility] with SHEEHAN to LAD
PCI with unclear details at [place]
Out of hospital STEMI alert 11/21/2024, no evidence of culprit lesion by cardiac cath to explain patient's presentation
GI bleed/macrocytic anemia s/p EGD/colon 11/24/24 with 1 angioectasia status post APC, and 3 colon polyp status post removal but no clear etiology of acute anemia
History of CVA 2010
Paroxysmal atrial fibrillation/flutter
Chronic Eliquis OAC
Chronic amiodarone therapy
PAD
s/p right femoral endarterectomy with saphenous vein angioplasty and right femoral to PT bypass 07/1123
chronic Plavix therapy
Poor medical compliance
Osteomyelitis toe
COPD
HTN
HLD
DM2
Hep C, treated and cleared infection
Ongoing tobacco use
h/o bedbugs 05/2024 admission
DNR code status
Dobutamine nuclear stress test 07/29/23 finds large inferior and basal inferior septal infarct without stephanie-infarct ischemia. Baseline LVEF 43%
Echo 07/28/23 finds normal LV size and function with LVEF in the low normal range estimated at 51% with basal to mid inferior wall severe hypokinesis. No significant valvular disease.
Echo 06/12/24: EF 50%, basal inferior wall hypokinetic on parasternal short axis views, RV mildly dilated, mildly dilated RA, no significant valvular disease noted
Echo 11/13/24: EF 50%, stage II diastolic dysfunction, trace MR, mild TR with PAP 44 mmHg no
Echo 11/21/24: Ejection fraction 50%, basal inferior akinesis, mild TR, PA systolic 44 mmHg, enlarged right ventricle with right ventricular hypokinesis
Cardiac catheterization 11/21/2024
LM: Large with mild disease
LAD: Large vessel that is proximally occluded within stent just after the takeoff of a large septal with the mid to distal vessel filled by patent SHEEHAN to LAD.
LCx: Large vessel with mild to moderate nonobstructive disease including a 50% stenosis in the mid body of the OM2
RCA: The proximal to distal vessel contains overlapping stents with mild ISR. There is a small region of haziness in the distal vessel as well as in the bifurcation of the distal RCA and RPDA/RPAV. This like represents eccentric atherosclerotic
plaque. There is DIMITRI-3 flow distally.
BYPASS GRAFT ANGIOGRAPHY:
SHEEHAN-LAD: the SHEEHAN is taken as a pedicle and forms an anastomosis with the mid-LAD.
There are clips on the right side of the aorta possible suggestive of an additional bypass graft. Non selective aortogram was performed and did not demonstrate presence of additional patent grafts.
Plan:
He is down to 2 L nasal cannula which may be his oxygen level at home
He continues with significant chest tube drainage
Weight may have plateaued but will continue IV Lasix for now and consider change to oral Lasix in next 24 to 48 hours
SGLT2 on hold while UCx is pending
Plavix stopped last admission due to GI bleeding
Continue Eliquis as single agent
High intensity statin
Remains in sinus rhythm on review of telemetry and EKG
Continue amiodarone, metoprolol and Eliquis
PREADMIT DATA
-Patient with recent admission to [facility], discharged 11/30/2024 presents back to [facility] last evening due to shortness of breath and hacking cough. Noted to be hypoxic and with temp of 100.2. Concern for
pneumonia/bronchitis. COVID and flu negative. On antibiotics per primary service
-Noted to have recurrent right-sided pleural effusion on imaging, moderate to large by CT. Now s/p chest tube placement.
HPI: This is a 74-year-old man with multiple medical conditions including coronary artery disease status post distant CABG, who presents with loss of consciousness and lateral ST elevations on initial EKG. Given his history and findings the Cath
Lab was activated for emergent coronary angiography which did not reveal a culprit to explain his presentation. Relevant findings include a new large right pleural effusion and new severe anemia with hemoglobin of 6 from prior baseline of 12. 2
units of blood were ordered. The patient will be admitted to the hospitalist service for further workup and management with cardiology following. Administered 2 units of blood and trend hemoglobin. Further workup to determine cause of anemia.
For now, would hold Eliquis and Plavix while working up cause of anemia.
Resume patient's home diuretic regimen, but hold additional GDMT for now given mild hypotension until hemodynamics allow restart.
Progress Note - Watch Train Inspector
Subjective
Date of Service: December 05, 2024
No complaints. Appears confused
Objective
Labs:
12/05/24 05:16
12/05/24 05:16
Labs
Hgb 8.7 g/dL (13.0-18.0) L 12/05/24 05:16
Hct 29.8 % (39.0-52.0) L 12/05/24 05:16
Plt Count 619 10^3/uL (130-400) H 12/05/24 05:16
PT 14.1 Sec (11.4-14.6) 12/01/24 23:22
INR 1.06 12/01/24 23:22
APTT 26.6 Sec (23.4-35.0) 12/01/24 23:22
Sodium 133 mmol/L (135-145) L 12/05/24 05:16
Potassium 4.4 mmol/L (3.5-5.1) D 12/05/24 05:16
BUN 16 mg/dl (9-20) 12/05/24 05:16
Creatinine 0.6 mg/dL (0.7-1.3) L 12/05/24 05:16
Glucose 160 mg/dl (70-99) H 12/05/24 05:16
Troponins
12/04/24
13:35
Troponin I 0.042 H*
Vital Signs and I&O:
Vital Signs
Temp Pulse Resp BP Pulse Ox
97.7 F 71 22 127/55 92
12/05/24 08:09 12/05/24 09:12 12/05/24 09:12 12/05/24 04:00 12/05/24 09:12
Vital Signs
Temp Pulse Resp BP Pulse Ox
97.7 F 71 22 127/55 92
12/05/24 08:09 12/05/24 09:12 12/05/24 09:12 12/05/24 04:00 12/05/24 09:12
Intake & Output
12/03/24 12/04/24 12/05/24 12/06/24
06:59 06:59 06:59 06:59
Intake Total 1280 / 1280 1600 / 1600 1500 / 1500
Output Total 3540 / 3540 2405 / 2405 1600 / 1600
Balance -2260 / -2260 -805 / -805 -100 / -100
Physical Exam
Physical Exam
General: Awake but confused
Neck: Supple, no JVD, HJR, carotids +2 B/L, no bruits bilaterally.
Heart: Non displaced PMI, RRR, no murmurs, No S3, S4, no rubs.
Lungs: Scattered rhonchi
Extremities: No clubbing, cyanosis or edema bilaterally.
Neuro: Awake but confused
[2024-12-05] MEDS: LASIX 40 MG IV ×2 (10:22→17:02)
[2024-12-05] MEDS: TYLENOL 650 MG PO (10:22)
--- NOTE | 2024-12-05 11:34 | HOSPNOTE ---
Hospice referral received. Voicemail left for daughter to call back to discuss hospice services. Awaiting return call. More information to follow.
[2024-12-05 11:59] LABS: Glucose - Point of Care 239 mg/dl (70-99)
[2024-12-05] MEDS: NOVOLOG FLEXPEN-MODERATE RESISTANCE 3 UNITS SC (12:49)
--- NOTE | 2024-12-05 13:33 | PN.CDI ---
CDI
- -
CDI:
Physician Documentation Request
Admit Date: 12/02/24 02:14
Dear Doctor Bebo,
Clinical Indicators:
Patient admitted with Acute on Chronic Hypoxemic and Hypercapnic Respiratory Failure
UTI & likely PNA, POA.
WBC, lactic acid on admission:
12/01/24 12/01/24
23:21 23:22
WBC 21.6 H
Band Neutrophils 13 H
Lactic Acid 2.4 H
HR/RR trend on admission:
12/01/24
23:09 12/01/24
23:14 12/01/24
23:23
Pulse 96 101 96
Resp Rate 26 28 32
12/01/24
23:35 12/01/24
23:45 12/02/24
00:15
Pulse 92 91 96
Resp Rate 35 26 19
Please clarify which of the following most accurately describes the status of the patient's infection:
Sepsis, POA
- Systemic manifestations of infection, with 2 or more SIRS criteria which include:
- Fever >100.4 degrees F or hypothermia < 96.8 degrees F
- Leukocytosis - WBC > 12,000 or leukopenia - WBC < 4,000 or > 10% bands
- Tachycardia > 90 beats per minute
- Tachypnea - RR > 20 breaths per minute or PaCO2 , 32mmHg
Source: Merck Manual 2013
- Indicate the known or suspected organism
- Indicate the known or suspected underlying infection, such as UTI, pneumonia or cellulitis
- Indicate if a suspected bacterial infection of unknown source
- Indicate if associated with an implanted device such as a F/C, PICC line, orthopedic hardware, etc.
Severe Sepsis with associated acute hypoxic respiratory failure, POA
- Sepsis with associated acute organ dysfunction, such as renal or respiratory failure
- Documentation should indicate the association between the sepsis and the organ dysfunction
UTI/Pneumonia Only, Without Systemic Illness
Other
Use of terms such as suspected, likely, concern for, or probable (associated with a specific diagnosis that is being evaluated, monitored, or treated as if it exists) are acceptable and can be coded in the inpatient setting, when documented at the
time of discharge.
Thank you,
Kimmy Urbina RN BSN
CDI Specialist
available via tiger text
Please use your independent medical judgment in providing your response.
--- NOTE | 2024-12-05 13:46 | PN.CDI ---
CDI
- -
CDI:
Physician Documentation Request
Admit Date: 12/02/24 02:14
Dear Doctor Bebo,
Clinical Indicators:
Patient admitted with Acute on Chronic Hypoxemic and Hypercapnic Respiratory Failure.
12/04 [facility] RN skin/wound assessment: Left Ear Stage 3 Pressure Injury
Left Buttock Stage 2 Pressure Injury, POA
Treatment: Silicone border foam dressings, air mattress overlay/cushion
Physician documentation of the type and location of wounds is required for compliant documentation. Based on the above clinical findings and your assessment, please provide the following in your progress note:
1. Location of the ulcer/wound, including laterality.
2. Type (etiology) of ulcer/wound:
- Pressure (decubitus) ulcer
- Other, please specify
3. If a pressure ulcer, please also include the stage* of the ulcer:
- Stage 1 - Skin intact, non-blanchable redness
- Stage 2 - Partial thickness loss of dermis, includes intact or open blister
- Stage 3 - Full thickness tissue not including bone, tendon or muscle
- Stage 4 - Full thickness tissue loss, including exposed bone, tendon or muscle
- Unstageable - Full thickness loss in which the base of the ulcer is covered by slough (yellow, sung, lezama, green or brown) and/or eschar (sung, brown or black) in the wound bed.
- Unable to determine
Use of terms such as suspected, likely, concern for, or probable (associated with a specific diagnosis that is being evaluated, monitored, or treated as if it exists) are acceptable and can be coded in the inpatient setting, when documented at the
time of discharge.
Thank you,
Kimmy Urbina RN BSN
CDI Specialist
available via tiger text
Please use your independent medical judgment in providing your response.
*Source: National Pressure Ulcer Advisory Panel (NPUAP)
--- NOTE | 2024-12-05 14:30 | W.PN.HOSP.TC ---
Today's Communication/Plan
-
chest tube management
diuresis - iv to po in 24-48 hours
GOC convo - daughter deciding on hospice
Assessment / Plan
Assessment / Plan
A/P: Patient is a 74y M with PMH significant for chronic combined respiratory failure, severe COPD, CHF and ASCVD who presents to ED complaining of increased SOB and new cough.
#Acute on Chronic Hypoxemic and Hypercapnic Respiratory Failure, multifactorial in nature
- Respiratory failure likely multifactorial and secondary to CHF, pleural effusion +/- respiratory infection / bacterial pneumonia.
- Continue supportive care including O2 supplementation, NIPPV as tolerated, etc.
See next items for each specific problem
now on 2L
Note findings on CT: Chest 12/02:
Incidental findings:
#Fractures of the right fourth through 11th ribs, which morphologically appear to be old.
#Small focus of reticular and small nodular opacities in the anteromedial left upper lobe, which could represent scarring or a small focus of small airway pneumonitis, new since prior CT examination.
#Both adrenal glands are enlarged, incompletely included on the [id number], similar appearance to prior CT, compatible with hyperplasia and/or adenomas. Of note, imaging studies do not address the functional status of an adrenal mass. If there
are clinical signs or symptoms of adrenal hyperfunction, biochemical testing may be required to determine if the lesion is excreting excess hormone.
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
# Right Pleural Effusion, chronic since July, loculated - with chest tube in
-Moderate to large right pleural effusion.
-S/P IR chest tube placement- fluid appears transudative
-Chest tube settings per IR
-Pulmonary consultation appreciated
-IR placed chest tube 12/02- continue per IR recs
Tube continues to drain
Re-eval daily for clamping trial
Follow results of cultures and fluid analysis (initial WBCs, but no organisms)
# Acute on Chronic HFpEF -
- Continue Lasix IV BID for now per Cardiology recs - can switch to PO within 24-48 hours
- Follow I/Os, daily weights, etc.
# Leukocytosis likely from a Bronchitis / Pneumonia - Patient with cough and worsened dyspnea.
- COVID and flu negative in the ED.
- IV abx with Zosyn
- Follow fever curve, leukocytosis and monitor for any new / focal symptoms.
#Hypokalemia
-monitor and replete
#Hyponatremia
-monitor with diuresis
#UTI
-ecoli
-zosyn
# Severe COPD and MARIJA
- No active wheezing appreciated today.
- NIPPV as patient needs / tolerates
- family states that they have a machine at home today for outpatient use.
Pt not tolerating BIPAP
- Pulmonary - added Spiriva/Symbicort/Acapella
# Anemia, Macrocytic anemia - possibly related to alcohol. Levels improving today
-Transfuse as necessary. --> 4 units PRBCs so far, last given on 11/23/2024 - not needed today
Underwent EGD/colonoscopy on 11/24/2024 showing:
diffuse severe mucosal changes with discoloration,
granularity and altered texture in the entire examined stomach biopsies taken,
a 3 mm AVM in the gastric body s/p APC,
colonoscopy showed multiple polyps throughout with 3 of them removed and diverticulosis in the left colon
GI recommended outpatient [id number] mass or source of bleeding.
- Suspected recent blood loss s/p GI evaluation during recent stay.
- EGD and colonoscopy without obvious source of bleeding.
- Outpatient capsule study recommended by GI
- Hgb fairly stable compared to recent discharge.
- Continue iron supplementation
- Follow for any changes.
-CBC daily
-Start back PPI
# ASCVD - Stable. Cath done during recent visit with non-obstructing coronary disease.
- Continue metoprolol, statin, etc. per Cards recs
- Off of antiplatelets given recent blood loss / suspected GI source. - single agent Eliquis only per Cards due to GI bleed.
# Paroxysmal Atrial Fibrillation - Stable.
Continue metoprolol.
Continue amiodarone per Cards.
Resume Eliquis
#. DM-II - Stable.
Hold PO medications including newly added SGLT2 inhibitor.
- Follow glucose and cover with SSI for now.
- A1C during recent visit was 5.1%.
# Benign Hypertension - Currently relatively hypotensive - similar to prior admission.
Cont BB per Cards, hold parameters
- Patient received no lisinopril or isosorbide for the entirety of his recent admission - and BP remained in the 90-100s.
.
# Lung nodule 7.4 mm on CAT scan January 2024-due for repeat CT. Request given 11/16/2024.
DVT Prophylaxis: Eliquis
Code Status: DNR; Dispo: Plan for hospice as per daughter;
Total time spent on today's encounter was 52 minutes which included time spent in counseling the patient/family regarding diagnosis and treatment plan as listed above, goals of care, and symptom management. Case was discussed with nursing staff,
specialists, and care coordinators/case management. All labs and imaging personally reviewed by me. Remainder the time spent in detailed review of previous records, lab data, imaging, and other medical provider documentation.
Anticipated Discharge: Within 24 hours
Subjective/Interval History
-
Date of Service: December 05, 2024
continue diuresis - now on 2L
Objective Data
-
Labs:
Laboratory Results
12/05/24
05:16
WBC 9.8
Hgb 8.7 L
Hct 29.8 L
Plt Count 619 H
Sodium 133 L
Potassium 4.4 D
Chloride 83 L
Carbon Dioxide 42 H
BUN 16
Creatinine 0.6 L
Glucose 160 H
Calcium 8.6
Total Bilirubin 0.5
AST 29
ALT 22
Alkaline Phosphatase 119
Vital Signs:
Vital Signs
Temp Pulse Resp BP Pulse Ox
97.7 F 65 22 120/52 94
12/05/24 12:09 12/05/24 10:22 12/05/24 09:12 12/05/24 10:22 12/05/24 12:04
I&O
12/04/24 12/05/24 12/06/24
06:59 06:59 06:59
Intake Total 1600 / 1600 1500 / 1500 600 / 600
Output Total 2405 / 2405 1600 / 1600
Balance -805 / -805 -100 / -100 600 / 600
Review of Systems
-
History Source: Patient
All other systems: Not reviewed unless documented
Physical Exam
-
General: No Apparent Distress and Appears Chronically Ill
HEENT: Nose Appears Normal and Ears Appear Normal
Respiratory: Rhonchi and Crackles
Cardiac: Regular Rhythm and S1/S2
GI: Soft, Nontender and Nondistended
Musculoskeletal: No Clubbing, No Cyanosis, Edema, Right Lower Extrem and Edema, Left Lower Extrem
Skin: Warm and Dry
Neuro: Awake and Alert
Psych: Calm and Depressed
Data Reviewed
-
Diagnostic Radiology: Report Reviewed by me
CT Scan: Report Reviewed by me
Labs: Labs Reviewed by me
--- NOTE | 2024-12-05 15:24 | CM ---
CM following for discharge planning. Pt's daughter is considering hospice care due to pt's lack of quality of life. Hospice is evaluating, however have not been able to speak with pt's daughter at this time.
[facility] asking about transfer to [facility]; CM advised that a decision regarding hospice and location of same if chosen (home vs. SNF vs. GIP) has not been determined.
Plan: CM to coordinate discharge needs based upon family decision for hospice or alternate wishes.
[2024-12-05 16:54] LABS: Glucose - Point of Care 189 mg/dl (70-99)
[2024-12-05] MEDS: ZOSYN IV (19:45)
[2024-12-05 21:14] LABS: Glucose - Point of Care 279 mg/dl (70-99)
[2024-12-05] MEDS: MELATONIN 5 MG PO (22:30)
[2024-12-05] MEDS: LIPITOR 80 MG PO (22:30)
[2024-12-05] MEDS: REQUIP 0.5 MG PO (22:30)
[2024-12-06] MEDS: TYLENOL 650 MG PO (00:30)
[2024-12-06 04:04] VITALS: BP 118/51
[2024-12-06] MEDS: ZOSYN 50 IV ×4 (05:26→23:47)
[2024-12-06 05:49] VITALS: BMI 23.1
[2024-12-06] MEDS: SPIRIVA RESPIMAT 2.5 MCG 2 PUFF INH (07:05)
[2024-12-06] MEDS: SYMBICORT 80/4.5 MCG INHALER 2 PUFF INH ×2 (07:05→19:18)
[2024-12-06 07:55] LABS: Glucose - Point of Care 210 mg/dl (70-99)
[2024-12-06 07:56] LABS: Hematocrit 32.2 % (39.0-52.0); Hemoglobin 9.2 g/dL (13.0-18.0); Mean Corp Hgb Conc. 28.6 g/dL (33.0-37.0); Mean Corpuscular Hgb 28.7 pg (27.0-31.0); Mean Corpuscular Volume 100.3 fL (80.0-94.0); Mean Platelet Volume 9.5 fL (7.4-10.4); Platelet Count 676 10^3/uL (130-400); Red Blood Cell Count 3.21 10^6/uL (4.70-6.10); Red Cell Dist. Width 15.7 % (11.5-14.5); White Blood Cell Count 8.9 10^3/uL (4.8-10.8)
[2024-12-06 08:02] VITALS: BP 131/53
[2024-12-06 08:04] LABS: ALT (SGPT) 29 U/L (0-50); AST (SGOT) 35 U/L (17-59); Albumin 2.5 g/dl (3.5-5.0); Alkaline Phosphatase 134 U/L (38-126); Blood Urea Nitrogen 14 mg/dl (9-20); Calcium 8.6 mg/dl (8.4-10.2); Chloride 85 mmol/L (98-107); Estimated Creatinine Clearance 111 ml/min; Glucose 204 mg/dl (70-99); Sodium 134 mmol/L (135-145); Total Bilirubin 0.3 mg/dl (0.2-1.3); Total Protein 5.1 g/dl (6.3-8.2); eGFR > 60.00
[2024-12-06 08:25] LABS: Carbon Dioxide 42 mmol/L (22-30)
[2024-12-06] MEDS: VITAMIN B1 100 MG PO (08:40)
[2024-12-06] MEDS: FEOSOL 325 MG PO ×2 (08:40→19:55)
[2024-12-06] MEDS: ELIQUIS 5 MG PO ×2 (08:40→19:55)
[2024-12-06] MEDS: FOLVITE 1 MG PO (08:40)
[2024-12-06] MEDS: PROTONIX 40 MG PO (08:40)
[2024-12-06] MEDS: PACERONE 200 MG PO (08:40)
[2024-12-06] MEDS: LASIX 40 MG IV ×2 (08:40→17:17)
[2024-12-06] MEDS: TOPROL XL 50 MG PO ×2 (08:40→19:55)
[2024-12-06] MEDS: NOVOLOG FLEXPEN-MODERATE RESISTANCE 3 UNITS SC (08:41)
[2024-12-06] MEDS: HYDROPHOR 1 APPLIC TOPICAL (08:41)
--- NOTE | 2024-12-06 09:12 | W.PN.PUL3 ---
Today's Communication / Plan
-
Remains on 2L NC, no new complaints
Output from chest tube remains high, continue to follow output
Lasix continued IV
Would stop abx after 5 days, stop date adjusted
Encouraged OOB/PT/IS, PT/OT following
Updated sister via phone
Assessment
-
74-year-old man with multiple medical problems. Advanced COPD. Chronic hypercapnic and hypoxemic respiratory failure. Coronary artery disease post bypass, peripheral vascular disease, ongoing smoking, alcohol abuse disorder. Recently discharged
11/30/24 from the hospital after being admitted with change in mental status, acute hypercapnic on chronic hypercapnic respiratory failure, right pleural effusion, heart failure. Apparently refusing to use BiPAP in the hospital. Readmitted 12/01/2024
with worsening shortness of breath, cough, leukocytosis. Persistent right pleural effusion.
Acute on chronic hypoxemic respiratory failure-cannot rule out pneumonia/other source including urine as he urinalysis is abnormal/acute on chronic heart failure with preserved ejection fraction.
Required noninvasive mechanical ventilation for increased work of breathing.
Abnormal UA: Possible UTI
Leukocytosis with a left shift
Chronic hypercapnic respiratory failure-appears compensated-likely due to advanced COPD
VBG 7.42/71/54 (12/02/2024)
Chronic right pleural effusions present since July
Right chest tube placement 12/02/2024: Over 1.5 L drained so far clear fluid
pH 7.51/white blood cells 480/93% mononuclear/glucose 170/total protein 3.1/LDH 176/ambulates 56/triglycerides under 30.
s/p 11/21/2024 thoracentesis 1900 cc of clear pleural fluid.
Present since July 2024 based on chest x-ray.
Possible heart failure component with preserved ejection fraction proBNP in the
Chronic macrocytic anemia
EGD/colonoscopy without a source of bleeding
Acute blood loss anemia status post 4 units of packed red blood cells and recent admission 11/2024
s/p EGD/colon 11/24: No significant mass was found. More likely multifactorial with chronic disease plus potentially small bowel angiectasias
EKG changes initially admitted as ST elevation myocardial infraction alert
s/p Cardiac catheterization 11/21/2024: Nonobstructive coronary artery disease. Elevated LVEDP at 19.
Conditions present prior admission:
Lung nodule 7.4 mm on CAT scan January 2024-due for repeat CT. Request given 11/16/2024.
Active tobacco smoker-ongoing
Advanced COPD due to tobacco use not in an acute exacerbation
Chronic hypoxemic respiratory failure 2-3 L of supplemental oxygen.
On Trelegy
Last seen by Dr. Mckeon 11/16/2024
PFT 2022 - 1.43L 46%
Paroxysmal A-fib/flutter on Eliquis
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
CAD s/p CABG
PAD with Hx of right femoral endarterectomy and femoral bypas.
DM type II (HbA1C: 7.5 on 08/19/2024)
Hepatic steatosis-mild ascites on ultrasound
History of hepatitis C
History of alcohol abuse-Patient states no longer using 12/02/2024
History of tobacco abuse patient states that no longer using 12/02/2024
Plan
Respiratory status continues to be relatively stable with significant chest tube output
Currently 94% on 2L
Continue supplemental oxygen-attempt to wean
Incentive spirometry encouraged
Symbicort and Spiriva continue-uses Trelegy as an outpatient
Nebulizers as needed
Aspiration precautions
BiPAP as needed-was refusing
Thoracentesis 11/21/24--1900 mL
Status post right chest tube 12/02/2024 -- fluid showing protein criteria 0.57 (but he is maintained on diuretics as OP, which may indicate pseudoexudate)
Culture negative to date, cyto neg 11/21, cyto 12/04 still pending
Monitor chest tube output--2.6 L on 12/03/2024, 80 mL 12/04/2024 and already 550 mL and 12/05/2024
Follow chest x-ray
Cultures reviewed--
Urine culture with E. coli
Pleural fluid no growth
Influenza negative
Blood cultures negative
Empiric antibiotics-on Zosyn-finite course (12/06 is day 5)
Would stop abx following course
Diuresis as tolerated-May convert to oral diuretics in the next 24 hours
Monitor renal function, electrolytes, intake/output, lower extremity edema and weight
Replace electrolytes as needed
Unable to use Diamox due to sulfa allergy
Cardiology following-correspondence reviewed
Eliquis continues
On amiodarone [address] chest January 2024 showed no evidence for any pulmonary mass on the right.
He has a groundglass pulmonary nodule that needs to be followed.
He has a request for repeat CT chest given by Dr. Mckeon to him on 11/16/2024.
Stable CAT scan 12/01/2024.
Doubt malignant or infectious in etiology-pleural fluid culture negative.
Follow hemoglobin-no evidence for acute bleeding
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
polyps throughout with 3 of them removed and diverticulosis in the left colon
Transfuse as needed
Outpatient GI evaluation
Monitor blood sugar
Insulin supplementation as needed
DVT prophylaxis-on Eliquis
Nutrition
Early mobilization
Patient currently on telemetry-pulmonary will continue to follow
Follow-up with Dr. Mckeon as previously scheduled after discharge.
Daughter Ariane has recently gotten involved with his father's care. Per nursing this admission patient was not sure about the DNR. This will need to be discussed with daughter.
Updated sister via phone today
Diagnostic Data
Chest X-Ray: 12/03/24- Right pleural pigtail catheter is present. Slight interval decrease in size of right pleural effusion. No evidence for significant pneumothorax.
CT Scan:
CT chest 12/02/2024: Old right 4 through 11 rib fractures; Moderate to large right pleural effusion. Compressive atelectasis. No significant left pleural effusion. Small nodular opacity in the left upper lobe new compared to prior CAT scan.
Echo: 11/21/24- Normal left ventricular size and function. Mild concentric left ventricular hypertrophy. Left ventricular ejection fraction is 50% by visual assessment. There is basal inferior akinesis. Stage II diastolic dysfunction suggestive of
abnormal relaxation and increased filling pressures. Mitral valve opens normally. Thickened mitral valve leaflets. Mitral annular calcification. Trace mitral regurgitation is seen. Mildly dilated left atrium. Tricuspid valve opens normally. Mild
tricuspid regurgitation. Estimated pulmonary artery pressure of 44 mmHg. Assuming a right atrial pressure of 8 mmHg. Dilated right atrium. Enlarged right ventricular size. Right ventricular hypokinesis. Since echocardiogram May 2024, there is
no significant change.
PFT's:
Reports and relevant images were personally reviewed.
Total time spent on this encounter __51__ minutes which includes review of history, physical exam, medications, laboratory data, personal review of imaging, extensive review of outpatient records, discussion with care team and respiratory therapy.
Subjective Data
-
Date of Service:
Date of Service: December 06, 2024
Chief Complaint: Pulmonary Follow Up
Subjective:
Doing well today, no new complaints
Remains on 2L NC
Objective Data
Data Reviewed
Vital Signs / I&O / Oxygen:
Vital Signs
Temp Pulse Resp BP Pulse Ox
98.3 F 63 24 131/53 98
12/06/24 08:02 12/06/24 08:02 12/06/24 08:02 12/06/24 08:02 12/06/24 08:02
Intake and Output
12/05/24 12/06/24 12/07/24
06:59 06:59 06:59
Intake Total 1500 / 1500 1230 / 1230
Output Total 1600 / 1600 3165 / 3165
Balance -100 / -100 -193 / -1934
SaO2 98
Nasal Cannula flow liters per 2
minute
Physical Exam
General: Comfortable and Other (NAD)
HEENT: Normocephalic, Anicteric and Moist Mucous Membranes
Cardiovascular: S1-S2 and Regular Rhythm
Respiratory: Crackles and Non-Labored Respirations
GI: Soft, Non Distended and Non Tender
Neurology: Awake, Alert, Oriented and No Motor Deficits
Skin: Warm, Dry and Good Color
Labs/Micro/Reports
Lab Data
12/06/24 06:13
12/06/24 06:13
Microbiology
12/01/24 23:21 Blood/Venous Blood Culture - Preliminary
No Growth in 4 days- Final report to follow
12/01/24 23:21 Blood/Venous Blood Culture - Preliminary
No Growth in 4 days- Final report to follow
12/02/24 12:52 Pleural Fluid Body Fluid Culture - Final
No Growth After 72 Hours
12/02/24 12:52 Pleural Fluid Gram Stain - Final
12/02/24 12:52 Pleural Fluid Fungal Smear - Final
No yeast or fungal elements seen.
12/02/24 12:52 Pleural Fluid Fungal Culture - Preliminary
Culture in progress.
Positive cultures are reported as soon as detected.
Final report to follow in four to five weeks.
12/01/24 23:35 Urine Urine Culture - Final
Escherichia coli
--- NOTE | 2024-12-06 09:22 | HOSPNOTE ---
Tried to call the daughter again and had to leave a message. Will continue trying to reach daughter to have a discussion of goals of care.
[2024-12-06 11:11] VITALS: BP 108/49
--- NOTE | 2024-12-06 11:15 | CM ---
Hospice referral in [facility].
tt Delisa Pantoja
Delisa Pantoja liaison left patient daughter messages
PLAN: Waiting for confirmation from daughter regarding hospice.
[2024-12-06 11:48] LABS: Glucose - Point of Care 336 mg/dl (70-99)
[2024-12-06] MEDS: NOVOLOG FLEXPEN-MODERATE RESISTANCE 7 UNITS SC (12:00)
--- NOTE | 2024-12-06 12:14 | HOSPNOTE ---
Spoke with daughter and explained hospice and the philosophy. I explained to the daughter about removing the chest tube and seeing what the requirements are as far as shortness of breath and pain and anxiety. I will speak with patient and explain
all of the above. More information to follow.
--- NOTE | 2024-12-06 13:45 | W.PN.CARDCBS ---
Addendum entered and electronically signed by Shadi Riggs MD 12/06/24 13:59:
I saw and examined the patient.
The MANAGER NEWS or PA's note was reviewed and I agree with the note.
Comment: General: Well developed, well nourished in NAD.
Neck: Supple, no JVD, HJR, carotids +2 B/L, no bruits bilaterally.
Heart: Non displaced PMI, RRR, no murmurs, No S3, S4, no rubs.
Lungs: Scattered rhonchi at the bases
Extremities: No clubbing, cyanosis or edema bilaterally.
Neuro: Grossly nonfocal, awake, alert and oriented x3.
He continues with significant chest tube drainage. Will continue IV Lasix as weight continues to decrease and renal function is stable.
Original Note:
Today's Communication / Plan
-
CT continues to put out 500-600 ml daily
Cont Lasix IV as well
Impression / Plan
-
Dr. Modesta Pretty
Dryerman/Woman: Dr Riggs
Impression:
Presentation with SOB, cough
Acute on Chronic Hypoxemic and Hypercapnic Respiratory Failure
PNA vs bronchitis
Acute on chronic HFpEF
R Pleural effusion/status post chest tube
s/p right sided thora for 1.9 L 11/21/24
s/p attempted thora 11/29/24, felt to be loculated as only 5cc out
CAD
s/p remote CABG at [facility] with SHEEHAN to LAD
PCI with unclear details at [place]
Out of hospital STEMI alert 11/21/2024, no evidence of culprit lesion by cardiac cath to explain patient's presentation
GI bleed/macrocytic anemia s/p EGD/colon 11/24/24 with 1 angioectasia status post APC, and 3 colon polyp status post removal but no clear etiology of acute anemia
History of CVA 2010
Paroxysmal atrial fibrillation/flutter
Chronic Eliquis OAC
Chronic amiodarone therapy
PAD
s/p right femoral endarterectomy with saphenous vein angioplasty and right femoral to PT bypass 07/1123
chronic Plavix therapy
Poor medical compliance
Osteomyelitis toe
COPD
HTN
HLD
DM2
Hep C, treated and cleared infection
Ongoing tobacco use
h/o bedbugs 05/2024 admission
DNR code status
Dobutamine nuclear stress test 07/29/23 finds large inferior and basal inferior septal infarct without stephanie-infarct ischemia. Baseline LVEF 43%
Echo 07/28/23 finds normal LV size and function with LVEF in the low normal range estimated at 51% with basal to mid inferior wall severe hypokinesis. No significant valvular disease.
Echo 06/12/24: EF 50%, basal inferior wall hypokinetic on parasternal short axis views, RV mildly dilated, mildly dilated RA, no significant valvular disease noted
Echo 11/13/24: EF 50%, stage II diastolic dysfunction, trace MR, mild TR with PAP 44 mmHg no
Echo 11/21/24: Ejection fraction 50%, basal inferior akinesis, mild TR, PA systolic 44 mmHg, enlarged right ventricle with right ventricular hypokinesis
Cardiac catheterization 11/21/2024
LM: Large with mild disease
LAD: Large vessel that is proximally occluded within stent just after the takeoff of a large septal with the mid to distal vessel filled by patent SHEEHAN to LAD.
LCx: Large vessel with mild to moderate nonobstructive disease including a 50% stenosis in the mid body of the OM2
RCA: The proximal to distal vessel contains overlapping stents with mild ISR. There is a small region of haziness in the distal vessel as well as in the bifurcation of the distal RCA and RPDA/RPAV. This like represents eccentric atherosclerotic
plaque. There is DIMITRI-3 flow distally.
BYPASS GRAFT ANGIOGRAPHY:
SHEEHAN-LAD: the SHEEHAN is taken as a pedicle and forms an anastomosis with the mid-LAD.
There are clips on the right side of the aorta possible suggestive of an additional bypass graft. Non selective aortogram was performed and did not demonstrate presence of additional patent grafts.
Plan:
-Right sided chest tube with almost 4 L out since placement 12/02/24. Weight is down 8 lbs since 12/02/24.
-Cont Lasix 40 mg IV BID. Patient was taking Lasix 80 mg PO BID prior to admission, degree of compliance unknown
-EF stable by echo at 50% 11/21/24.
-Outpatient dose of Toprol XL 50 mg BID has been continued
-Outpatient dose of lisinopril 40 mg daily was stopped due to hypotension last admission
-Recent admission 11/21/24 until 11/30/24 started as a prehospital STEMI alert and patient was taken to the rn labor and delivery by Dr. Campbell where he was found to have no evidence of culprit lesion to explain presentation or ECG changes. Troponin peaked at
0.086. Troponin this admission was 0.042 on 12/04/24. Will manage as a nonischemic myocardial injury Troponin elevation based on recent rn labor and delivery findings.
-Outpatient dose of Eliquis 5 mg BID (age 74, wt 70.9, Cre 0.6) has been continued
-Patient with known paroxysmal Afib. Tele reviewed by me 12/06/24 SR.
-Cont amiodarone 200 mg daily. QTc 428 ms by ECG 12/02/24
HPI: Patient with recent admission to [facility], discharged 11/30/2024 presents back to [facility] last evening due to shortness of breath and hacking cough. Noted to be hypoxic and with temp of 100.2. Concern for
pneumonia/bronchitis. COVID and flu negative. On antibiotics per primary service. Noted to have recurrent right-sided pleural effusion on imaging, moderate to large by CT. Now s/p chest tube placement.
Progress Note - Dryerman/Woman
Subjective
Date of Service: December 06, 2024
He feels less SOB, wants to go home
Objective
Labs:
12/06/24 06:13
12/06/24 06:13
Labs
Hgb 9.2 g/dL (13.0-18.0) L 12/06/24 06:13
Hct 32.2 % (39.0-52.0) L 12/06/24 06:13
Plt Count 676 10^3/uL (130-400) H 12/06/24 06:13
PT 14.1 Sec (11.4-14.6) 12/01/24 23:22
INR 1.06 12/01/24 23:22
APTT 26.6 Sec (23.4-35.0) 12/01/24 23:22
Sodium 134 mmol/L (135-145) L 12/06/24 06:13
Potassium 4.0 mmol/L (3.5-5.1) 12/06/24 06:13
BUN 14 mg/dl (9-20) 12/06/24 06:13
Creatinine 0.6 mg/dL (0.7-1.3) L 12/06/24 06:13
Glucose 204 mg/dl (70-99) H 12/06/24 06:13
Troponins
12/04/24
13:35
Troponin I 0.042 H*
Vital Signs and I&O:
Vital Signs
Temp Pulse Resp BP Pulse Ox
97.6 F 70 22 108/49 95
12/06/24 11:11 12/06/24 11:11 12/06/24 11:11 12/06/24 11:11 12/06/24 11:20
Vital Signs
Temp Pulse Resp BP Pulse Ox
97.6 F 70 22 108/49 95
12/06/24 11:11 12/06/24 11:11 12/06/24 11:11 12/06/24 11:11 12/06/24 11:20
Intake & Output
12/04/24 12/05/24 12/06/24 12/07/24
06:59 06:59 06:59 06:59
Intake Total 1600 / 1600 1500 / 1500 1230 / 1230
Output Total 2405 / 2405 1600 / 1600 3165 / 3165
Balance -805 / -805 -100 / -100 -193 / -1934
Physical Exam
Physical Exam
GEN: NAD
HEENT: mmm
LUNGS: 2 L NC. No audible wheeze
CV: SR on tele
ABD: ND
EXT: Trace B/L LE edema
NEURO: Gross non-focal
SKIN: No rash
[2024-12-06 15:17] VITALS: BP 116/59
--- NOTE | 2024-12-06 15:21 | W.PN.HOSP.TC ---
Today's Communication/Plan
-
wean o2
chest tube care
iv diuresis
insulin correction scale
GOC
Assessment / Plan
Assessment / Plan
A/P: Patient is a 74y M with PMH significant for chronic combined respiratory failure, severe COPD, CHF and ASCVD who presents to ED complaining of increased SOB and new cough.
#Acute on Chronic Hypoxemic and Hypercapnic Respiratory Failure, multifactorial in nature
- Respiratory failure likely multifactorial and secondary to CHF, pleural effusion +/- respiratory infection / bacterial pneumonia.
- Continue supportive care including O2 supplementation, NIPPV as tolerated, etc.
See next items for each specific problem
now on 2L
Note findings on CT: Chest 12/02:
Incidental findings:
#Fractures of the right fourth through 11th ribs, which morphologically appear to be old.
#Small focus of reticular and small nodular opacities in the anteromedial left upper lobe, which could represent scarring or a small focus of small airway pneumonitis, new since prior CT examination.
#Both adrenal glands are enlarged, incompletely included on the [id number], similar appearance to prior CT, compatible with hyperplasia and/or adenomas. Of note, imaging studies do not address the functional status of an adrenal mass. If there
are clinical signs or symptoms of adrenal hyperfunction, biochemical testing may be required to determine if the lesion is excreting excess hormone.
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
# Right Pleural Effusion, chronic since July, loculated - with chest tube in
-Moderate to large right pleural effusion.
-S/P IR chest tube placement- fluid appears transudative
-Chest tube settings per IR
-Pulmonary consultation appreciated
-IR placed chest tube 12/02- continue per IR recs
Tube continues to drain
Re-eval daily for clamping trial
Follow results of cultures and fluid analysis (initial WBCs, but no organisms)
# Acute on Chronic HFpEF -
- Continue Lasix IV BID for now per Cardiology recs - can switch to PO within 24-48 hours
- Follow I/Os, daily weights, etc.
# Leukocytosis likely from a Bronchitis / Pneumonia - Patient with cough and worsened dyspnea.
- COVID and flu negative in the ED.
- IV abx with Zosyn - 5 day course
- Follow fever curve, leukocytosis and monitor for any new / focal symptoms.
#Hypokalemia
-monitor and replete
#Hyponatremia
-monitor with diuresis
#UTI
-ecoli
-zosyn
# Severe COPD and MARIJA
- No active wheezing appreciated today.
- NIPPV as patient needs / tolerates
- family states that they have a machine at home today for outpatient use.
Pt not tolerating BIPAP
- Pulmonary - added Spiriva/Symbicort/Acapella
# Anemia, Macrocytic anemia - possibly related to alcohol. Levels improving today
-Transfuse as necessary. --> 4 units PRBCs so far, last given on 11/23/2024 - not needed today
Underwent EGD/colonoscopy on 11/24/2024 showing:
diffuse severe mucosal changes with discoloration,
granularity and altered texture in the entire examined stomach biopsies taken,
a 3 mm AVM in the gastric body s/p APC,
colonoscopy showed multiple polyps throughout with 3 of them removed and diverticulosis in the left colon
GI recommended outpatient [id number] mass or source of bleeding.
- Suspected recent blood loss s/p GI evaluation during recent stay.
- EGD and colonoscopy without obvious source of bleeding.
- Outpatient capsule study recommended by GI
- Hgb fairly stable compared to recent discharge.
- Continue iron supplementation
- Follow for any changes.
-CBC daily
-Start back PPI
# ASCVD - Stable. Cath done during recent visit with non-obstructing coronary disease.
- Continue metoprolol, statin, etc. per Cards recs
- Off of antiplatelets given recent blood loss / suspected GI source. - single agent Eliquis only per Cards due to GI bleed.
# Paroxysmal Atrial Fibrillation - Stable.
Continue metoprolol.
Continue amiodarone per Cards.
Resume Eliquis
#. DM-II - Stable.
Hold PO medications including newly added SGLT2 inhibitor.
- Follow glucose and cover with SSI for now.
- A1C during recent visit was 5.1%.
# Benign Hypertension - Currently relatively hypotensive - similar to prior admission.
Cont BB per Cards, hold parameters
- Patient received no lisinopril or isosorbide for the entirety of his recent admission - and BP remained in the 90-100s.
.
# Lung nodule 7.4 mm on CAT scan January 2024-due for repeat CT. Request given 11/16/2024.
DVT Prophylaxis: Eliquis
Code Status: DNR; Dispo: Plan for hospice as per daughter;
Total time spent on today's encounter was 52 minutes which included time spent in counseling the patient/family regarding diagnosis and treatment plan as listed above, goals of care, and symptom management. Case was discussed with nursing staff,
specialists, and care coordinators/case management. All labs and imaging personally reviewed by me. Remainder the time spent in detailed review of previous records, lab data, imaging, and other medical provider documentation.
Anticipated Discharge: 24 - 48 hours
Subjective/Interval History
-
Date of Service: December 06, 2024
no acute events
Objective Data
-
Labs:
Laboratory Results
12/06/24
06:13
WBC 8.9
Hgb 9.2 L
Hct 32.2 L
Plt Count 676 H
Sodium 134 L
Potassium 4.0
Chloride 85 L
Carbon Dioxide 42 H
BUN 14
Creatinine 0.6 L
Glucose 204 H
Calcium 8.6
Total Bilirubin 0.3
AST 35
ALT 29
Alkaline Phosphatase 134 H
Vital Signs:
Vital Signs
Temp Pulse Resp BP Pulse Ox
98.3 F 67 20 116/59 99
12/06/24 15:17 12/06/24 15:17 12/06/24 15:17 12/06/24 15:17 12/06/24 15:17
I&O
12/05/24 12/06/24 12/07/24
06:59 06:59 06:59
Intake Total 1500 / 1500 1230 / 1230
Output Total 1600 / 1600 3165 / 3165
Balance -100 / -100 -193 / -1934
Review of Systems
-
History Source: Patient
All other systems: Not reviewed unless documented
Data Reviewed
-
Diagnostic Radiology: Report Reviewed by me
CT Scan: Report Reviewed by me
Labs: Labs Reviewed by me
[2024-12-06 16:58] LABS: Glucose - Point of Care 255 mg/dl (70-99)
[2024-12-06] MEDS: NOVOLOG FLEXPEN-HIGH RESISTANCE 7 UNITS SC (17:18)
[2024-12-06 19:45] VITALS: BP 120/57
[2024-12-06 21:29] LABS: Glucose - Point of Care 281 mg/dl (70-99)
[2024-12-06] MEDS: ULTRAM 25 MG PO (21:56)
[2024-12-06] MEDS: MELATONIN 5 MG PO (21:58)
[2024-12-06] MEDS: LIPITOR 80 MG PO (21:58)
[2024-12-06] MEDS: REQUIP 0.5 MG PO (21:58)
[2024-12-06 23:25] VITALS: BP 149/65
[2024-12-07 03:10] VITALS: BP 118/57
[2024-12-07 05:55] VITALS: BMI 23.2
[2024-12-07 07:24] VITALS: BP 126/60
[2024-12-07] MEDS: SYMBICORT 80/4.5 MCG INHALER 2 PUFF INH ×2 (07:32→19:26)
[2024-12-07] MEDS: SPIRIVA RESPIMAT 2.5 MCG 2 PUFF INH (07:32)
[2024-12-07] MEDS: ELIQUIS 5 MG PO ×2 (08:05→20:30)
[2024-12-07] MEDS: VITAMIN B1 100 MG PO (08:06)
[2024-12-07] MEDS: TOPROL XL 50 MG PO ×2 (08:07→20:30)
[2024-12-07] MEDS: PACERONE 200 MG PO (08:10)
[2024-12-07] MEDS: FEOSOL 325 MG PO ×2 (08:10→20:30)
[2024-12-07] MEDS: PROTONIX 40 MG PO (08:11)
[2024-12-07] MEDS: FOLVITE 1 MG PO (08:11)
[2024-12-07] MEDS: LASIX 40 MG IV ×2 (08:11→17:13)
[2024-12-07] MEDS: HYDROPHOR 1 APPLIC TOPICAL (08:12)
[2024-12-07 08:25] LABS: Glucose - Point of Care 217 mg/dl (70-99)
[2024-12-07] MEDS: NOVOLOG FLEXPEN-HIGH RESISTANCE 4 UNITS SC (08:54)
--- NOTE | 2024-12-07 09:14 | W.PN.PUL3 ---
Today's Communication / Plan
-
Doing well, remains on 2L NC
Complains of tongue sores, will order magic mouthwash
Completed abx x 5 days, now off
Repeat CXR 12/06 appears markedly improved
Chest tube output 30mL in past 24 hours, will continue another 24 hour observation
If remains low, can consider discontinuation tomorrow
Assessment
-
74-year-old man with multiple medical problems. Advanced COPD. Chronic hypercapnic and hypoxemic respiratory failure. Coronary artery disease post bypass, peripheral vascular disease, ongoing smoking, alcohol abuse disorder. Recently discharged
11/30/24 from the hospital after being admitted with change in mental status, acute hypercapnic on chronic hypercapnic respiratory failure, right pleural effusion, heart failure. Apparently refusing to use BiPAP in the hospital. Readmitted 12/01/2024
with worsening shortness of breath, cough, leukocytosis. Persistent right pleural effusion.
Acute on chronic hypoxemic respiratory failure-cannot rule out pneumonia/other source including urine as he urinalysis is abnormal/acute on chronic heart failure with preserved ejection fraction.
Required noninvasive mechanical ventilation for increased work of breathing.
Abnormal UA: Possible UTI
Leukocytosis with a left shift
Chronic hypercapnic respiratory failure-appears compensated-likely due to advanced COPD
VBG 7.42/71/54 (12/02/2024)
Chronic right pleural effusions present since July
Right chest tube placement 12/02/2024: Over 1.5 L drained so far clear fluid
pH 7.51/white blood cells 480/93% mononuclear/glucose 170/total protein 3.1/LDH 176/ambulates 56/triglycerides under 30.
s/p 11/21/2024 thoracentesis 1900 cc of clear pleural fluid.
Present since July 2024 based on chest x-ray.
Possible heart failure component with preserved ejection fraction proBNP in the 5999's
Chronic macrocytic anemia
EGD/colonoscopy without a source of bleeding
Acute blood loss anemia status post 4 units of packed red blood cells and recent admission 11/2024
s/p EGD/colon 11/24: No significant mass was found. More likely multifactorial with chronic disease plus potentially small bowel angiectasias
EKG changes initially admitted as ST elevation myocardial infraction alert
s/p Cardiac catheterization 11/21/2024: Nonobstructive coronary artery disease. Elevated LVEDP at 19.
Conditions present prior admission:
Lung nodule 7.4 mm on CAT scan January 2024-due for repeat CT. Request given 11/16/2024.
Active tobacco smoker-ongoing
Advanced COPD due to tobacco use not in an acute exacerbation
Chronic hypoxemic respiratory failure 2-3 L of supplemental oxygen.
On Trelegy
Last seen by Dr. Mckeon 11/16/2024
PFT 2022 - 1.43L 46%
Paroxysmal A-fib/flutter on Eliquis
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
CAD s/p CABG
PAD with Hx of right femoral endarterectomy and femoral bypas.
DM type II (HbA1C: 7.5 on 08/19/2024)
Hepatic steatosis-mild ascites on ultrasound
History of hepatitis C
History of alcohol abuse-Patient states no longer using 12/02/2024
History of tobacco abuse patient states that no longer using 12/02/2024
Plan
Currently 94% on 2L
Continue supplemental oxygen-attempt to wean
Incentive spirometry encouraged
Symbicort and Spiriva continued-uses Trelegy as an outpatient
Nebulizers as needed
Aspiration precautions
BiPAP as needed-was refusing
Thoracentesis 11/21/24--1900 mL
Status post right chest tube 12/02/2024 -- fluid showing protein criteria 0.57 (but he is maintained on diuretics as OP, which may indicate pseudoexudate)
Culture negative to date, cyto neg 11/21, cyto 12/04 still pending
Monitor chest tube output--2.6 L on 12/03/2024, 80 mL 12/04/2024 and already 550 mL and 12/05/2024
Output last 24 hours 30mL
Follow chest x-ray-- 12/06 improving
If output remains low in next 24 hours, may consider d/c tube
Cultures reviewed--
Urine culture with E. coli
Pleural fluid no growth
Influenza negative
Blood cultures negative
Empiric antibiotics-on Zosyn-finite course (12/06 is day 5)
Off now, observation only
Diuresis as tolerated-May convert to oral diuretics in the next 24 hours
Monitor renal function, electrolytes, intake/output, lower extremity edema and weight
Replace electrolytes as needed
Unable to use Diamox due to sulfa allergy
Cardiology following-correspondence reviewed
Eliquis continues
On amiodarone [address] chest January 2024 showed no evidence for any pulmonary mass on the right.
He has a groundglass pulmonary nodule that needs to be followed.
He has a request for repeat CT chest given by Dr. Mckeon to him on 11/16/2024.
Stable CAT scan 12/01/2024.
Doubt malignant or infectious in etiology-pleural fluid culture negative.
Follow hemoglobin-no evidence for acute bleeding
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
polyps throughout with 3 of them removed and diverticulosis in the left colon
Transfuse as needed
Outpatient GI evaluation
DVT prophylaxis-on Eliquis
Nutrition
Early mobilization
Follow-up with Dr. Mckeon as previously scheduled after discharge.
Daughter Ariane has recently gotten involved with his father's care. Per nursing this admission patient was not sure about the DNR. This will need to be discussed with daughter.
Jazz- Updated sister via phone 12/06/24
Diagnostic Data
CXR 12/06/24- The tip of the right-sided chest tube is at the lateral right base and there has been near complete resolution of the pleural fluid collection at the right lung base in the interval since the prior study. There is no pneumothorax
Chest X-Ray: 12/03/24- Right pleural pigtail catheter is present. Slight interval decrease in size of right pleural effusion. No evidence for significant pneumothorax.
CT Scan:
CT chest 12/02/2024: Old right 4 through 11 rib fractures; Moderate to large right pleural effusion. Compressive atelectasis. No significant left pleural effusion. Small nodular opacity in the left upper lobe new compared to prior CAT scan.
Echo: 11/21/24- Normal left ventricular size and function. Mild concentric left ventricular hypertrophy. Left ventricular ejection fraction is 50% by visual assessment. There is basal inferior akinesis. Stage II diastolic dysfunction suggestive of
abnormal relaxation and increased filling pressures. Mitral valve opens normally. Thickened mitral valve leaflets. Mitral annular calcification. Trace mitral regurgitation is seen. Mildly dilated left atrium. Tricuspid valve opens normally. Mild
tricuspid regurgitation. Estimated pulmonary artery pressure of 44 mmHg. Assuming a right atrial pressure of 8 mmHg. Dilated right atrium. Enlarged right ventricular size. Right ventricular hypokinesis. Since echocardiogram May 2024, there is
no significant change.
PFT's:
Reports and relevant images were personally reviewed.
Total time spent on this encounter __51__ minutes which includes review of history, physical exam, medications, laboratory data, personal review of imaging, extensive review of outpatient records, discussion with care team and respiratory therapy.
Subjective Data
-
Date of Service:
Date of Service: December 07, 2024
Chief Complaint: Pulmonary Follow Up
Subjective:
Remains on 2L NC, complaints on tongue pain
Asking for IV pain meds
Objective Data
Data Reviewed
Vital Signs / I&O / Oxygen:
Vital Signs
Temp Pulse Resp BP Pulse Ox
98.1 F 68 18 126/60 96
12/07/24 07:24 12/07/24 08:11 12/07/24 07:35 12/07/24 08:11 12/07/24 07:35
Intake and Output
12/06/24 12/07/24 12/08/24
06:59 06:59 06:59
Intake Total 1230 / 1230 1950 / 1950
Output Total 3165 / 3165 3105 / 3105
Balance -1935 / -1935 -1155 / -1155
SaO2 96
Nasal Cannula flow liters per 2
minute
Physical Exam
General: Comfortable and Other (NAD)
HEENT: Normocephalic, Anicteric and Moist Mucous Membranes
Cardiovascular: S1-S2 and Regular Rhythm
Respiratory: Crackles, Non-Labored Respirations and Chest Tube
GI: Soft, Non Distended and Non Tender
Neurology: Awake, Alert, Oriented and No Motor Deficits
Skin: Warm, Dry and Good Color
Labs/Micro/Reports
Microbiology
12/01/24 23:21 Blood/Venous Blood Culture - Final
No Growth - Final Report
12/01/24 23:21 Blood/Venous Blood Culture - Final
No Growth - Final Report
12/02/24 12:52 Pleural Fluid Body Fluid Culture - Final
No Growth After 72 Hours
12/02/24 12:52 Pleural Fluid Gram Stain - Final
12/02/24 12:52 Pleural Fluid Fungal Smear - Final
No yeast or fungal elements seen.
12/02/24 12:52 Pleural Fluid Fungal Culture - Preliminary
Culture in progress.
Positive cultures are reported as soon as detected.
Final report to follow in four to five weeks.
12/01/24 23:35 Urine Urine Culture - Final
Escherichia coli
[2024-12-07 11:15] VITALS: BP 112/55
--- NOTE | 2024-12-07 12:00 | CHAP ---
Fr. Antony Harris of [facility] in [place] gave Ross the Sacraments of Penance and Anointing, as well as Holy Communion.
[2024-12-07 12:33] LABS: Hematocrit 32.8 % (39.0-52.0); Hemoglobin 9.5 g/dL (13.0-18.0); Mean Corpuscular Hgb 28.2 pg (27.0-31.0); Mean Corpuscular Volume 97.3 fL (80.0-94.0); Mean Platelet Volume 9.6 fL (7.4-10.4); Platelet Count 730 10^3/uL (130-400); Red Blood Cell Count 3.37 10^6/uL (4.70-6.10); Red Cell Dist. Width 15.6 % (11.5-14.5); White Blood Cell Count 11.7 10^3/uL (4.8-10.8)
[2024-12-07 12:42] LABS: Glucose - Point of Care 444 mg/dl (70-99)
[2024-12-07 12:53] LABS: ALT (SGPT) 26 U/L (0-50); AST (SGOT) 32 U/L (17-59); Albumin 2.9 g/dl (3.5-5.0); Alkaline Phosphatase 138 U/L (38-126); Blood Urea Nitrogen 11 mg/dl (9-20); Calcium 8.9 mg/dl (8.4-10.2); Chloride 85 mmol/L (98-107); Estimated Creatinine Clearance 111 ml/min; Glucose 279 mg/dl (70-99); Potassium 4.1 mmol/L (3.5-5.1); Sodium 127 mmol/L (135-145); Total Bilirubin 0.5 mg/dl (0.2-1.3); Total Protein 5.5 g/dl (6.3-8.2); eGFR > 60.00
[2024-12-07 12:59] LABS: Carbon Dioxide 35 mmol/L (22-30)
[2024-12-07 13:13] LABS: Glucose - Point of Care 337 mg/dl (70-99)
[2024-12-07] MEDS: NOVOLOG FLEXPEN-HIGH RESISTANCE 10 UNITS SC (13:14)
[2024-12-07] MEDS: MAGIC OR MIRACLE MOUTHWASH 5 ML PO (13:16)
--- NOTE | 2024-12-07 14:36 | CM ---
PT rec SNF
Patient/daughter agreeable
Options reviewed with patient/daughter.
Lukasz Schroeder Referral entered in careport
daughter will look on medicare.gov care compare web
CM received call today from Nano at [facility] requesting admission paperwork to be faxed to her at , stated that a referral was sent to [facility] 2 weeks ago for self neglect.
CM to fax clinicals to her.
PLAN: SNF, pending bed availability, will need to obtain auth once a bed is secured
--- NOTE | 2024-12-07 14:53 | W.PN.HOSP.TC ---
Today's Communication/Plan
-
GOC - prognosis guarded
iv diuresis
repeat bmp
CT management, observe
Assessment / Plan
Assessment / Plan
A/P: Patient is a 74y M with PMH significant for chronic combined respiratory failure, severe COPD, CHF and ASCVD who presents to ED complaining of increased SOB and new cough.
#Acute on Chronic Hypoxemic and Hypercapnic Respiratory Failure, multifactorial in nature
- Respiratory failure likely multifactorial and secondary to CHF, pleural effusion +/- respiratory infection / bacterial pneumonia.
- Continue supportive care including O2 supplementation, NIPPV as tolerated, etc.
See next items for each specific problem
now on 2L
Note findings on CT: Chest 12/02:
Incidental findings:
#Fractures of the right fourth through 11th ribs, which morphologically appear to be old.
#Small focus of reticular and small nodular opacities in the anteromedial left upper lobe, which could represent scarring or a small focus of small airway pneumonitis, new since prior CT examination.
#Both adrenal glands are enlarged, incompletely included on the [id number], similar appearance to prior CT, compatible with hyperplasia and/or adenomas. Of note, imaging studies do not address the functional status of an adrenal mass. If there
are clinical signs or symptoms of adrenal hyperfunction, biochemical testing may be required to determine if the lesion is excreting excess hormone.
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
# Right Pleural Effusion, chronic since July, loculated - with chest tube in
-Moderate to large right pleural effusion.
-S/P IR chest tube placement- fluid appears transudative
-Chest tube settings per IR
-Pulmonary consultation appreciated
-IR placed chest tube 12/02- continue per IR recs
Tube continues to drain
Re-eval daily for clamping trial
Follow results of cultures and fluid analysis (initial WBCs, but no organisms)
# Acute on Chronic HFpEF -
- Continue Lasix IV BID for now per Cardiology recs - can switch to PO within 24-48 hours
- Follow I/Os, daily weights, etc.
# Leukocytosis likely from a Bronchitis / Pneumonia - Patient with cough and worsened dyspnea.
- COVID and flu negative in the ED.
- IV abx with Zosyn - 5 day course completed
- Follow fever curve, leukocytosis and monitor for any new / focal symptoms.
#Hypokalemia
-monitor and replete
#Hyponatremia
-Acute drop, possibly secondary to SIADH
� Repeat BMP
Monitor closely
#UTI
-ecoli
-zosyn course completed
# Severe COPD and MARIJA
- No active wheezing appreciated today.
- NIPPV as patient needs / tolerates
- family states that they have a machine at home today for outpatient use.
Pt not tolerating BIPAP
- Pulmonary - added Spiriva/Symbicort/Acapella
# Anemia, Macrocytic anemia - possibly related to alcohol. Levels improving today
-Transfuse as necessary. --> 4 units PRBCs so far, last given on 11/23/2024 - not needed today
Underwent EGD/colonoscopy on 11/24/2024 showing:
diffuse severe mucosal changes with discoloration,
granularity and altered texture in the entire examined stomach biopsies taken,
a 3 mm AVM in the gastric body s/p APC,
colonoscopy showed multiple polyps throughout with 3 of them removed and diverticulosis in the left colon
GI recommended outpatient [id number] mass or source of bleeding.
- Suspected recent blood loss s/p GI evaluation during recent stay.
- EGD and colonoscopy without obvious source of bleeding.
- Outpatient capsule study recommended by GI
- Hgb fairly stable compared to recent discharge.
- Continue iron supplementation
- Follow for any changes.
-CBC daily
-Start back PPI
# ASCVD - Stable. Cath done during recent visit with non-obstructing coronary disease.
- Continue metoprolol, statin, etc. per Cards recs
- Off of antiplatelets given recent blood loss / suspected GI source. - single agent Eliquis only per Cards due to GI bleed.
# Paroxysmal Atrial Fibrillation - Stable.
Continue metoprolol.
Continue amiodarone per Cards.
Resume Eliquis
#. DM-II - Stable.
Hold PO medications including newly added SGLT2 inhibitor.
- Follow glucose and cover with SSI for now.
- A1C during recent visit was 5.1%.
# Benign Hypertension - Currently relatively hypotensive - similar to prior admission.
Cont BB per Cards, hold parameters
- Patient received no lisinopril or isosorbide for the entirety of his recent admission - and BP remained in the 90-100s.
.
# Lung nodule 7.4 mm on CAT scan January 2024-due for repeat CT. Request given 11/16/2024.
DVT Prophylaxis: Eliquis
Code Status: DNR; Dispo: Plan for hospice as per daughter;
Total time spent on today's encounter was 50 minutes which included time spent in counseling the patient/family regarding diagnosis and treatment plan as listed above, goals of care, and symptom management. Case was discussed with nursing staff,
specialists, and care coordinators/case management. All labs and imaging personally reviewed by me. Remainder the time spent in detailed review of previous records, lab data, imaging, and other medical provider documentation.
Anticipated Discharge: > 48 hours
Subjective/Interval History
-
Date of Service: December 07, 2024
No acute changes
Objective Data
-
Labs:
Laboratory Results
12/07/24 12/07/24
10:59 12:12
WBC Cancelled 11.7 H
Hgb Cancelled 9.5 L
Hct Cancelled 32.8 L
Plt Count Cancelled 730 H
Sodium 127 L
Potassium 4.1
Chloride 85 L
Carbon Dioxide 35 H
BUN 11
Creatinine 0.6 L
Glucose 279 H
Calcium 8.9
Total Bilirubin 0.5
AST 32
ALT 26
Alkaline Phosphatase 138 H
Vital Signs:
Vital Signs
Temp Pulse Resp BP Pulse Ox
97.6 F 68 24 112/55 93
12/07/24 11:15 12/07/24 11:15 12/07/24 11:15 12/07/24 11:15 12/07/24 11:15
I&O
12/06/24 12/07/24 12/08/24
06:59 06:59 06:59
Intake Total 1230 / 1230 1950 / 1950
Output Total 3165 / 3165 3105 / 3105
Balance -1935 / -1935 -1155 / -1155
Review of Systems
-
History Source: Patient
All other systems: Not reviewed unless documented
Physical Exam
-
General: No Apparent Distress and Appears Chronically Ill
HEENT: Nose Appears Normal and Ears Appear Normal
Respiratory: Rhonchi, Crackles and Chest Tubes
Cardiac: Regular Rhythm and S1/S2
GI: Soft, Nontender and Nondistended
Musculoskeletal: No Clubbing, No Cyanosis, Edema, Right Lower Extrem and Edema, Left Lower Extrem
Skin: Warm and Dry
Neuro: Awake and Alert
Psych: Calm and Depressed
Data Reviewed
-
Diagnostic Radiology: Report Reviewed by me
CT Scan: Report Reviewed by me
Labs: Labs Reviewed by me
[2024-12-07 15:27] VITALS: BP 130/56
--- NOTE | 2024-12-07 16:36 | W.PN.CARDCBS ---
Today's Communication / Plan
-
PLAN:
-Renal function is stable.
-Continue IV diuresis with Lasix 40mg IV bid
-I am not sure he is able to manage medications at home. Is Case Management involved. His daughter 'helps' but he lives with a nephew
-Chest tube drainage improving. Pulmonary may pull tomorrow.
Impression / Plan
-
Dr. Modesta Pretty
Qualitative Researcher: Dr Riggs
Impression:
Presentation with SOB, cough
Acute on Chronic Hypoxemic and Hypercapnic Respiratory Failure
PNA vs bronchitis
Acute on chronic HFpEF
R Pleural effusion/status post chest tube
s/p right sided thora for 1.9 L 11/21/24
s/p attempted thora 11/29/24, felt to be loculated as only 5cc out
CAD
s/p remote CABG at [facility] with SHEEHAN to LAD
PCI with unclear details at [facility]
Out of hospital STEMI alert 11/21/2024, no evidence of culprit lesion by cardiac cath to explain patient's presentation
GI bleed/macrocytic anemia s/p EGD/colon 11/24/24 with 1 angioectasia status post APC, and 3 colon polyp status post removal but no clear etiology of acute anemia
History of CVA 2010
Paroxysmal atrial fibrillation/flutter
Chronic Eliquis OAC
Chronic amiodarone therapy
PAD
s/p right femoral endarterectomy with saphenous vein angioplasty and right femoral to PT bypass 07/1123
chronic Plavix therapy
Poor medical compliance
Osteomyelitis toe
COPD
HTN
HLD
DM2
Hep C, treated and cleared infection
Ongoing tobacco use
h/o bedbugs 05/2024 admission
DNR code status
Dobutamine nuclear stress test 07/29/23 finds large inferior and basal inferior septal infarct without stephanie-infarct ischemia. Baseline LVEF 43%
Echo 07/28/23 finds normal LV size and function with LVEF in the low normal range estimated at 51% with basal to mid inferior wall severe hypokinesis. No significant valvular disease.
Echo 06/12/24: EF 50%, basal inferior wall hypokinetic on parasternal short axis views, RV mildly dilated, mildly dilated RA, no significant valvular disease noted
Echo 11/13/24: EF 50%, stage II diastolic dysfunction, trace MR, mild TR with PAP 44 mmHg no
Echo 11/21/24: Ejection fraction 50%, basal inferior akinesis, mild TR, PA systolic 44 mmHg, enlarged right ventricle with right ventricular hypokinesis
Cardiac catheterization 11/21/2024
LM: Large with mild disease
LAD: Large vessel that is proximally occluded within stent just after the takeoff of a large septal with the mid to distal vessel filled by patent SHEEHAN to LAD.
LCx: Large vessel with mild to moderate nonobstructive disease including a 50% stenosis in the mid body of the OM2
RCA: The proximal to distal vessel contains overlapping stents with mild ISR. There is a small region of haziness in the distal vessel as well as in the bifurcation of the distal RCA and RPDA/RPAV. This like represents eccentric atherosclerotic
plaque. There is DIMITRI-3 flow distally.
BYPASS GRAFT ANGIOGRAPHY:
SHEEHAN-LAD: the SHEEHAN is taken as a pedicle and forms an anastomosis with the mid-LAD.
There are clips on the right side of the aorta possible suggestive of an additional bypass graft. Non selective aortogram was performed and did not demonstrate presence of additional patent grafts.
Plan:
-Right sided chest tube with almost 4 L out since placement 12/02/24. Weight is down 8 lbs since 12/02/24.
Chest tube drainage is minimal. Plan is to leave chest tube in place and possibly pull if output remains low in the next 24-hours or so.
-Cont Lasix 40 mg IV BID. Patient was taking Lasix 80 mg PO BID prior to admission: His daughter helps him with medications. He can provide little history and seems completely confused re: medical regimen.
-EF stable by echo at 50% 11/21/24.
-Outpatient dose of Toprol XL 50 mg BID has been continued
-Outpatient dose of lisinopril 40 mg daily was stopped due to hypotension last admission
-Recent admission 11/21/24 until 11/30/24 started as a prehospital STEMI alert and patient was taken to the catheter builder by Dr. Campbell where he was found to have no evidence of culprit lesion to explain presentation or ECG changes. Troponin peaked at
0.086. Troponin this admission was 0.042 on 12/04/24. Will manage as a nonischemic myocardial injury Troponin elevation based on recent catheter builder findings.
-Outpatient dose of Eliquis 5 mg BID (age 74, wt 70.9, Cre 0.6) has been continued
-Patient with known paroxysmal Afib. Tele reviewed by me 12/06/24 SR.
-Cont amiodarone 200 mg daily. QTc 428 ms by ECG 12/02/24
HPI: Patient with recent admission to [facility], discharged 11/30/2024 presents back to [facility] last evening due to shortness of breath and hacking cough. Noted to be hypoxic and with temp of 100.2. Concern for
pneumonia/bronchitis. COVID and flu negative. On antibiotics per primary service. Noted to have recurrent right-sided pleural effusion on imaging, moderate to large by CT. Now s/p chest tube placement.
Progress Note - Qualitative Researcher
Subjective
Date of Service: December 07, 2024
He reports that he is breathing better. (NOTE: He really can provide NO history [id number]!!! )
Objective
Labs:
12/07/24 12:12
Labs
Hgb 9.5 g/dL (13.0-18.0) L 12/07/24 12:12
Hct 32.8 % (39.0-52.0) L 12/07/24 12:12
Plt Count 730 10^3/uL (130-400) H 12/07/24 12:12
PT 14.1 Sec (11.4-14.6) 12/01/24 23:22
INR 1.06 12/01/24 23:22
APTT 26.6 Sec (23.4-35.0) 12/01/24 23:22
Sodium 127 mmol/L (135-145) L 12/07/24 10:59
Potassium 4.1 mmol/L (3.5-5.1) 12/07/24 10:59
BUN 11 mg/dl (9-20) 12/07/24 10:59
Creatinine 0.6 mg/dL (0.7-1.3) L 12/07/24 10:59
Glucose 279 mg/dl (70-99) H 12/07/24 10:59
Vital Signs and I&O:
Vital Signs
Temp Pulse Resp BP Pulse Ox
99.2 F 64 20 130/56 98
12/07/24 15:27 12/07/24 15:27 12/07/24 15:27 12/07/24 15:27 12/07/24 15:27
Vital Signs
Temp Pulse Resp BP Pulse Ox
99.2 F 64 20 130/56 98
12/07/24 15:27 12/07/24 15:27 12/07/24 15:27 12/07/24 15:27 12/07/24 15:27
Intake & Output
12/04/24 12/05/24 12/06/24 12/07/24
23:59 23:59 23:59 23:59
Intake Total 1260 / 1260 1380 / 1380 1230 / 1230 1110 / 1110
Output Total 2220 / 2220 2120 / 2120 3130 / 3130 1250 / 1250
Balance -960 / -960 -740 / -740 -1900 / -1900 -140 / -140
Physical Exam
Physical Exam
GEN: Lying in bed at 40-degree angle. NAD
HEENT: NC/AT, sclera anicteric
LUNGS: Chest tube in place. Good air movement. No wheeze
CV: RRR (not on telemetry)
EXT: Venous stasis changes. No edema
NEURO: Moves extremities. Memory: very very poor and can provide little in way of history.
SKIN: No rash
[2024-12-07 17:14] LABS: Glucose - Point of Care 261 mg/dl (70-99)
[2024-12-07] MEDS: NOVOLOG FLEXPEN-HIGH RESISTANCE 7 UNITS SC (17:14)
[2024-12-07] MEDS: REQUIP 0.5 MG PO (21:13)
[2024-12-07] MEDS: MELATONIN 5 MG PO (21:13)
[2024-12-07] MEDS: LIPITOR 80 MG PO (21:13)
[2024-12-07 21:34] LABS: Blood Urea Nitrogen 12 mg/dl (9-20); Calcium 9.4 mg/dl (8.4-10.2); Chloride 86 mmol/L (98-107); Estimated Creatinine Clearance 95 ml/min; Glucose 210 mg/dl (70-99); Potassium 4.7 mmol/L (3.5-5.1); Sodium 133 mmol/L (135-145); eGFR > 60.00
[2024-12-07 21:40] LABS: Glucose - Point of Care 250 mg/dl (70-99)
[2024-12-07 21:54] LABS: Carbon Dioxide 39 mmol/L (22-30)
[2024-12-07 23:29] VITALS: BP 114/55
[2024-12-08] MEDS: ATIVAN 0.25 MG PO (00:32)
[2024-12-08] MEDS: TYLENOL 650 MG PO (04:19)
[2024-12-08 07:00] VITALS: BP 115/56
[2024-12-08 07:11] LABS: Glucose - Point of Care 218 mg/dl (70-99)
[2024-12-08] MEDS: SYMBICORT 80/4.5 MCG INHALER 2 PUFF INH ×2 (07:12→19:32)
[2024-12-08] MEDS: SPIRIVA RESPIMAT 2.5 MCG 2 PUFF INH (07:12)
[2024-12-08] MEDS: NOVOLOG FLEXPEN-HIGH RESISTANCE 4 UNITS SC ×3 (07:33→18:04)
[2024-12-08] MEDS: FOLVITE 1 MG PO (07:34)
[2024-12-08] MEDS: FEOSOL 325 MG PO ×2 (07:34→21:23)
[2024-12-08] MEDS: TOPROL XL 50 MG PO ×2 (07:34→21:24)
[2024-12-08] MEDS: ELIQUIS 5 MG PO ×2 (07:35→21:23)
[2024-12-08] MEDS: MORPHINE SULFATE 2 MG IV ×2 (07:35→12:49)
[2024-12-08] MEDS: VITAMIN B1 100 MG PO (07:35)
[2024-12-08] MEDS: PACERONE 200 MG PO (07:35)
[2024-12-08] MEDS: LASIX 40 MG IV ×2 (07:35→18:05)
[2024-12-08] MEDS: PROTONIX 40 MG PO (07:35)
[2024-12-08] MEDS: HYDROPHOR 1 APPLIC TOPICAL (07:38)
[2024-12-08 08:56] LABS: Mean Corpuscular Hgb 28.3 pg (27.0-31.0); Mean Corpuscular Volume 97.5 fL (80.0-94.0); Mean Platelet Volume 9.7 fL (7.4-10.4); Platelet Count 781 10^3/uL (130-400); Red Blood Cell Count 3.18 10^6/uL (4.70-6.10); Red Cell Dist. Width 15.6 % (11.5-14.5); White Blood Cell Count 10.7 10^3/uL (4.8-10.8)
--- NOTE | 2024-12-08 09:19 | W.PN.PUL3 ---
Today's Communication / Plan
-
Prior output 30mL, but past 24 hours 165mL, can continue observation another 24 hours, if minimal can discontinue
Add scheduled nebs by patient request
Mouthwash QID scheduled as well
PT/OT, OOB encouraged
Lasix continued
Assessment
-
74-year-old man with multiple medical problems. Advanced COPD. Chronic hypercapnic and hypoxemic respiratory failure. Coronary artery disease post bypass, peripheral vascular disease, ongoing smoking, alcohol abuse disorder. Recently discharged
11/30/24 from the hospital after being admitted with change in mental status, acute hypercapnic on chronic hypercapnic respiratory failure, right pleural effusion, heart failure. Apparently refusing to use BiPAP in the hospital. Readmitted 12/01/2024
with worsening shortness of breath, cough, leukocytosis. Persistent right pleural effusion.
Acute on chronic hypoxemic respiratory failure-cannot rule out pneumonia/other source including urine as he urinalysis is abnormal/acute on chronic heart failure with preserved ejection fraction.
Required noninvasive mechanical ventilation for increased work of breathing.
Abnormal UA: Possible UTI
Leukocytosis with a left shift
Chronic hypercapnic respiratory failure-appears compensated-likely due to advanced COPD
VBG 7.42/71/54 (12/02/2024)
Chronic right pleural effusions present since July
Right chest tube placement 12/02/2024: Over 1.5 L drained so far clear fluid
pH 7.51/white blood cells 480/93% mononuclear/glucose 170/total protein 3.1/LDH 176/ambulates 56/triglycerides under 30.
s/p 11/21/2024 thoracentesis 1900 cc of clear pleural fluid.
Present since July 2024 based on chest x-ray.
Possible heart failure component with preserved ejection fraction proBNP in the 5999's
Chronic macrocytic anemia
EGD/colonoscopy without a source of bleeding
Acute blood loss anemia status post 4 units of packed red blood cells and recent admission 11/2024
s/p EGD/colon 11/24: No significant mass was found. More likely multifactorial with chronic disease plus potentially small bowel angiectasias
EKG changes initially admitted as ST elevation myocardial infraction alert
s/p Cardiac catheterization 11/21/2024: Nonobstructive coronary artery disease. Elevated LVEDP at 19.
Conditions present prior admission:
Lung nodule 7.4 mm on CAT scan January 2024-due for repeat CT. Request given 11/16/2024.
Active tobacco smoker-ongoing
Advanced COPD due to tobacco use not in an acute exacerbation
Chronic hypoxemic respiratory failure 2-3 L of supplemental oxygen.
On Trelegy
Last seen by Dr. Mckeon 11/16/2024
PFT 2022 - 1.43L 46%
Paroxysmal A-fib/flutter on Eliquis
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
CAD s/p CABG
PAD with Hx of right femoral endarterectomy and femoral bypas.
DM type II (HbA1C: 7.5 on 08/19/2024)
Hepatic steatosis-mild ascites on ultrasound
History of hepatitis C
History of alcohol abuse-Patient states no longer using 12/02/2024
History of tobacco abuse patient states that no longer using 12/02/2024
Plan
Currently 94% on 2L
Continue supplemental oxygen-attempt to wean
Incentive spirometry encouraged
Symbicort and Spiriva continued-uses Trelegy as an outpatient
Nebulizers as needed
Aspiration precautions
BiPAP as needed-was refusing
Thoracentesis 11/21/24--1900 mL
Status post right chest tube 12/02/2024 -- fluid showing protein criteria 0.57 (but he is maintained on diuretics as OP, which may indicate pseudoexudate)
Culture negative to date, cyto neg 11/21, cyto 12/04 still pending
Monitor chest tube output--2.6 L on 12/03/2024, 550 mL 12/04/2024 and already 615 mL and 12/05/2024
Output last 24 hours 30mL
Follow chest x-ray-- 12/06 improving
Output in past 24 hours 165mL, prior 30mL
Will observe another 24 hours
Cultures reviewed--
Urine culture with E. coli
Pleural fluid no growth
Influenza negative
Blood cultures negative
Empiric antibiotics-on Zosyn-finite course (12/06 is day 5)
Off now, observation only
Diuresis as tolerated-May convert to oral diuretics in the next 24 hours
Monitor renal function, electrolytes, intake/output, lower extremity edema and weight
Replace electrolytes as needed
Unable to use Diamox due to sulfa allergy
Cardiology following-correspondence reviewed
Eliquis continues
On amiodarone [address] chest January 2024 showed no evidence for any pulmonary mass on the right.
He has a groundglass pulmonary nodule that needs to be followed.
He has a request for repeat CT chest given by Dr. Mckeon to him on 11/16/2024.
Stable CAT scan 12/01/2024.
Doubt malignant or infectious in etiology-pleural fluid culture negative.
Follow hemoglobin-no evidence for acute bleeding
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
polyps throughout with 3 of them removed and diverticulosis in the left colon
Transfuse as needed
Outpatient GI evaluation
DVT prophylaxis-on Eliquis
Nutrition
Early mobilization
Follow-up with Dr. Mckeon as previously scheduled after discharge.
Daughter Ariane has recently gotten involved with his father's care. Per nursing this admission patient was not sure about the DNR. This will need to be discussed with daughter.
Jazz- Updated sister via phone 12/06/24
Diagnostic Data
CXR 12/06/24- The tip of the right-sided chest tube is at the lateral right base and there has been near complete resolution of the pleural fluid collection at the right lung base in the interval since the prior study. There is no pneumothorax
Chest X-Ray: 12/03/24- Right pleural pigtail catheter is present. Slight interval decrease in size of right pleural effusion. No evidence for significant pneumothorax.
CT Scan:
CT chest 12/02/2024: Old right 4 through 11 rib fractures; Moderate to large right pleural effusion. Compressive atelectasis. No significant left pleural effusion. Small nodular opacity in the left upper lobe new compared to prior CAT scan.
Echo: 11/21/24- Normal left ventricular size and function. Mild concentric left ventricular hypertrophy. Left ventricular ejection fraction is 50% by visual assessment. There is basal inferior akinesis. Stage II diastolic dysfunction suggestive of
abnormal relaxation and increased filling pressures. Mitral valve opens normally. Thickened mitral valve leaflets. Mitral annular calcification. Trace mitral regurgitation is seen. Mildly dilated left atrium. Tricuspid valve opens normally. Mild
tricuspid regurgitation. Estimated pulmonary artery pressure of 44 mmHg. Assuming a right atrial pressure of 8 mmHg. Dilated right atrium. Enlarged right ventricular size. Right ventricular hypokinesis. Since echocardiogram May 2024, there is
no significant change.
PFT's:
Reports and relevant images were personally reviewed.
Total time spent on this encounter __51__ minutes which includes review of history, physical exam, medications, laboratory data, personal review of imaging, extensive review of outpatient records, discussion with care team and respiratory therapy.
Subjective Data
-
Date of Service:
Date of Service: December 08, 2024
Chief Complaint: Pulmonary Follow Up
Subjective:
No new complaints, tongue sore ongoing
No new SOB
Objective Data
Data Reviewed
Vital Signs / I&O / Oxygen:
Vital Signs
Temp Pulse Resp BP Pulse Ox
97.6 F 80 16 115/56 95
12/08/24 07:00 12/08/24 07:15 12/08/24 07:15 12/08/24 07:00 12/08/24 07:15
Intake and Output
12/07/24 12/08/24 12/09/24
06:59 06:59 06:59
Intake Total 1950 / 1950 1600 / 1600
Output Total 3105 / 3105 2190 / 2190
Balance -1155 / -1155 -590 / -590
SaO2 95
Nasal Cannula flow liters per 2
minute
Physical Exam
General: Comfortable and Other (NAD)
HEENT: Normocephalic, Anicteric and Moist Mucous Membranes
Cardiovascular: S1-S2 and Regular Rhythm
Respiratory: Crackles, Non-Labored Respirations and Chest Tube
GI: Soft, Non Distended and Non Tender
Neurology: Awake, Alert, Oriented and No Motor Deficits
Skin: Warm, Dry and Good Color
Labs/Micro/Reports
Lab Data
12/08/24 07:02
Microbiology
12/01/24 23:21 Blood/Venous Blood Culture - Final
No Growth - Final Report
12/01/24 23:21 Blood/Venous Blood Culture - Final
No Growth - Final Report
12/02/24 12:52 Pleural Fluid Body Fluid Culture - Final
No Growth After 72 Hours
12/02/24 12:52 Pleural Fluid Gram Stain - Final
[2024-12-08 09:32] LABS: AST (SGOT) 29 U/L (17-59); Albumin 2.5 g/dl (3.5-5.0); Blood Urea Nitrogen 11 mg/dl (9-20); Calcium 8.7 mg/dl (8.4-10.2); Chloride 89 mmol/L (98-107); Estimated Creatinine Clearance 111 ml/min; Glucose 209 mg/dl (70-99); Total Bilirubin 0.3 mg/dl (0.2-1.3); eGFR > 60.00
[2024-12-08 09:43] LABS: ALT (SGPT) 26 U/L (0-50); Alkaline Phosphatase 148 U/L (38-126); Carbon Dioxide 36 mmol/L (22-30); Potassium 4.4 mmol/L (3.5-5.1); Sodium 131 mmol/L (135-145)
--- NOTE | 2024-12-08 11:43 | CM ---
Called Kimberlyn from [facility] - referral sent in [facility]
Per Kimberlyn she will review referral and get back to CM
CM called daughter Ariane [phone]) for other SNF options
Spoke with patient regarding other options of SNF - referrals placed in careport
Will need to obtain insurance authorization
PLAN: SNF, pending bed availability
[2024-12-08 12:52] LABS: Glucose - Point of Care 234 mg/dl (70-99)
--- NOTE | 2024-12-08 12:54 | W.PN.HOSP.TC ---
Today's Communication/Plan
-
chest tube management
diuretics
hospice conversations
monitor Na
Assessment / Plan
Assessment / Plan
A/P: Patient is a 74y M with PMH significant for chronic combined respiratory failure, severe COPD, CHF and ASCVD who presents to ED complaining of increased SOB and new cough.
#Acute on Chronic Hypoxemic and Hypercapnic Respiratory Failure, multifactorial in nature
- Respiratory failure likely multifactorial and secondary to CHF, pleural effusion +/- respiratory infection / bacterial pneumonia.
- Continue supportive care including O2 supplementation, NIPPV as tolerated, etc.
See next items for each specific problem
now on 2L
Note findings on CT: Chest 12/02:
Incidental findings:
#Fractures of the right fourth through 11th ribs, which morphologically appear to be old.
#Small focus of reticular and small nodular opacities in the anteromedial left upper lobe, which could represent scarring or a small focus of small airway pneumonitis, new since prior CT examination.
#Both adrenal glands are enlarged, incompletely included on the [id number], similar appearance to prior CT, compatible with hyperplasia and/or adenomas. Of note, imaging studies do not address the functional status of an adrenal mass. If there
are clinical signs or symptoms of adrenal hyperfunction, biochemical testing may be required to determine if the lesion is excreting excess hormone.
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
# Right Pleural Effusion, chronic since July, loculated - with chest tube in
-Moderate to large right pleural effusion.
-S/P IR chest tube placement- fluid appears transudative
-Chest tube settings per IR
-Pulmonary consultation appreciated
-IR placed chest tube 12/02- continue per Pulm recs
Tube continues to drain
Cultures negative
# Acute on Chronic HFpEF -
- Continue Lasix IV BID for now per Cardiology recs
- Follow I/Os, daily weights, etc.
# Leukocytosis likely from a Bronchitis / Pneumonia - Patient with cough and worsened dyspnea.
- COVID and flu negative in the ED.
- IV abx with Zosyn - 5 day course completed
- Follow fever curve, leukocytosis and monitor for any new / focal symptoms.
#Hypokalemia
-monitor and replete
#Hyponatremia
-Acute drop, possibly secondary to SIADH
� Repeat BMP
Monitor closely
-lasix
-fluid restriction
#UTI
-ecoli
-zosyn course completed
# Severe COPD and MARIJA
- No active wheezing appreciated today.
- NIPPV as patient needs / tolerates
- family states that they have a machine at home today for outpatient use.
Pt not tolerating BIPAP
- Pulmonary - added Spiriva/Symbicort/Acapella
# Anemia, Macrocytic anemia - possibly related to alcohol. Levels improving today
-Transfuse as necessary. --> 4 units PRBCs so far, last given on 11/23/2024 - not needed today
Underwent EGD/colonoscopy on 11/24/2024 showing:
diffuse severe mucosal changes with discoloration,
granularity and altered texture in the entire examined stomach biopsies taken,
a 3 mm AVM in the gastric body s/p APC,
colonoscopy showed multiple polyps throughout with 3 of them removed and diverticulosis in the left colon
GI recommended outpatient [id number] mass or source of bleeding.
- Suspected recent blood loss s/p GI evaluation during recent stay.
- EGD and colonoscopy without obvious source of bleeding.
- Outpatient capsule study recommended by GI
- Hgb fairly stable compared to recent discharge.
- Continue iron supplementation
- Follow for any changes.
-CBC daily
-Start back PPI
# ASCVD - Stable. Cath done during recent visit with non-obstructing coronary disease.
- Continue metoprolol, statin, etc. per Cards recs
- Off of antiplatelets given recent blood loss / suspected GI source. - single agent Eliquis only per Cards due to GI bleed.
# Paroxysmal Atrial Fibrillation - Stable.
Continue metoprolol.
Continue amiodarone per Cards.
Resume Eliquis
#. DM-II - Stable.
Hold PO medications including newly added SGLT2 inhibitor.
- Follow glucose and cover with SSI for now.
- A1C during recent visit was 5.1%.
# Benign Hypertension - Currently relatively hypotensive - similar to prior admission.
Cont BB per Cards, hold parameters
- Patient received no lisinopril or isosorbide for the entirety of his recent admission - and BP remained in the 90-100s.
.
# Lung nodule 7.4 mm on CAT scan January 2024-due for repeat CT. Request given 11/16/2024.
DVT Prophylaxis: Eliquis
Code Status: DNR; Dispo: Plan for hospice as per daughter; Hospice team working with family regarding this; Daughter cannot take care of patient as he refuses everything with poor insight
Total time spent on today's encounter was 51 minutes which included time spent in counseling the patient/family regarding diagnosis and treatment plan as listed above, goals of care, and symptom management. Case was discussed with nursing staff,
specialists, and care coordinators/case management. All labs and imaging personally reviewed by me. Remainder the time spent in detailed review of previous records, lab data, imaging, and other medical provider documentation.
Anticipated Discharge: > 48 hours
Subjective/Interval History
-
Date of Service: December 08, 2024
no acute events; still no adequate insight
Objective Data
-
Labs:
Laboratory Results
12/08/24
07:02
WBC 10.7
Hgb 9.0 L
Hct 31.0 L
Plt Count 781 H
Sodium 131 L
Potassium 4.4
Chloride 89 L
Carbon Dioxide 36 H
BUN 11
Creatinine 0.6 L
Glucose 209 H
Calcium 8.7
Total Bilirubin 0.3
AST 29
ALT 26
Alkaline Phosphatase 148 H
Vital Signs:
Vital Signs
Temp Pulse Resp BP Pulse Ox
97.6 F 80 16 115/56 95
12/08/24 07:00 12/08/24 07:15 12/08/24 07:15 12/08/24 07:00 12/08/24 07:15
I&O
12/07/24 12/08/24 12/09/24
06:59 06:59 06:59
Intake Total 1950 / 1950 1600 / 1600
Output Total 3105 / 3105 2190 / 2190
Balance -1155 / -1155 -590 / -590
Review of Systems
-
History Source: Patient
All other systems: Not reviewed unless documented
Physical Exam
-
General: No Apparent Distress and Appears Chronically Ill
HEENT: Nose Appears Normal and Ears Appear Normal
Respiratory: Rhonchi, Crackles and Chest Tubes
Cardiac: Regular Rhythm and S1/S2
GI: Soft, Nontender and Nondistended
Musculoskeletal: No Clubbing, No Cyanosis, Edema, Right Lower Extrem and Edema, Left Lower Extrem
Skin: Warm and Dry
Neuro: Awake and Alert
Psych: Calm and Depressed
Data Reviewed
-
Diagnostic Radiology: Report Reviewed by me
CT Scan: Report Reviewed by me
Labs: Labs Reviewed by me
--- NOTE | 2024-12-08 14:41 | HOSPNOTE ---
Patient does not wish for hospice and would like to go to rehab. CM and Attending updated. Will continue to follow.
[2024-12-08 15:00] VITALS: BP 106/49
--- NOTE | 2024-12-08 15:15 | W.PN.CARDCBS ---
Addendum entered and electronically signed by Heriberto Olivarez MD 12/08/24 19:41:
Patient still with chest tube, no significant complaints at present
PMH: Remote CABG, SHEEHAN to LAD, prior PCI, COPD with chronic hypoxemic and hypercapnic respiratory failure, PAF, history of stroke, history of GI bleeding status post EGD: 2024, chronic amiodarone therapy, PAD with right femoral endarterectomy,
history of osteomyelitis, hypertension, hyperlipidemia, diabetes, history of hep C, tobacco abuse,
Medications: Amiodarone 200 mg a day, atorvastatin, folate, Requip, thiamine, furosemide 40 IV twice daily, iron, metoprolol ER 50 mg twice daily, apixaban 5 twice daily, pantoprazole, DuoNebs, insulin
106/49, pulse 65, respiratory rate 14, afebrile, chronically ill appearing, right chest tube, head neck exam unremarkable, lungs relatively clear, regular rate and rhythm, no obvious murmurs, abdomen benign extremities without much edema
white count 10.7, hemoglobin 9, sodium 131, potassium 4.4, CO2 36, BUN and creatinine 11 and 0.6
Echo 11/21/24: Ejection fraction 50%, basal inferior akinesis, mild TR, PA systolic 44 mmHg, enlarged right ventricle with right ventricular hypokinesis
Impression:
See below
Plan:
With regards to acute on chronic HFpEF with right pleural effusion, he seems relatively compensated. He is mildly hyponatremic, likely switch to oral furosemide in 24 to 48 hours.
Hopefully chest tube to be removed in AM.
Hemoglobin relatively stable on apixaban.
He was on dapagliflozin at admission. Will review records and restart if not contraindicated.
He is in sinus rhythm on amiodarone
He had been on nitrates and lisinopril prior to admission, likely restart lisinopril, consider spironolactone
Original Note:
Today's Communication / Plan
-
continue IV lasix
wean supp O2 as able
Impression / Plan
-
Dr. Modesta Pretty
Cloth Spreader Screen Printing: Dr Riggs
Impression:
Presentation with SOB, cough
Acute on Chronic Hypoxemic and Hypercapnic Respiratory Failure
PNA vs bronchitis
Acute on chronic HFpEF
R Pleural effusion/status post chest tube
s/p right sided thora for 1.9 L 11/21/24
s/p attempted thora 11/29/24, felt to be loculated as only 5cc out
CAD
s/p remote CABG at [facility] with SHEEHAN to LAD
PCI with unclear details at [place]
Out of hospital STEMI alert 11/21/2024, no evidence of culprit lesion by cardiac cath to explain patient's presentation
GI bleed/macrocytic anemia s/p EGD/colon 11/24/24 with 1 angioectasia status post APC, and 3 colon polyp status post removal but no clear etiology of acute anemia
History of CVA 2010
Paroxysmal atrial fibrillation/flutter
Chronic Eliquis OAC
Chronic amiodarone therapy
PAD
s/p right femoral endarterectomy with saphenous vein angioplasty and right femoral to PT bypass 07/1123
chronic Plavix therapy
Poor medical compliance
Osteomyelitis toe
COPD
HTN
HLD
DM2
Hep C, treated and cleared infection
Ongoing tobacco use
h/o bedbugs 05/2024 admission
DNR code status
Dobutamine nuclear stress test 07/29/23 finds large inferior and basal inferior septal infarct without stephanie-infarct ischemia. Baseline LVEF 43%
Echo 07/28/23 finds normal LV size and function with LVEF in the low normal range estimated at 51% with basal to mid inferior wall severe hypokinesis. No significant valvular disease.
Echo 06/12/24: EF 50%, basal inferior wall hypokinetic on parasternal short axis views, RV mildly dilated, mildly dilated RA, no significant valvular disease noted
Echo 11/13/24: EF 50%, stage II diastolic dysfunction, trace MR, mild TR with PAP 44 mmHg no
Echo 11/21/24: Ejection fraction 50%, basal inferior akinesis, mild TR, PA systolic 44 mmHg, enlarged right ventricle with right ventricular hypokinesis
Cardiac catheterization 11/21/2024
LM: Large with mild disease
LAD: Large vessel that is proximally occluded within stent just after the takeoff of a large septal with the mid to distal vessel filled by patent SHEEHAN to LAD.
LCx: Large vessel with mild to moderate nonobstructive disease including a 50% stenosis in the mid body of the OM2
RCA: The proximal to distal vessel contains overlapping stents with mild ISR. There is a small region of haziness in the distal vessel as well as in the bifurcation of the distal RCA and RPDA/RPAV. This like represents eccentric atherosclerotic
plaque. There is DIMITRI-3 flow distally.
BYPASS GRAFT ANGIOGRAPHY:
SHEEHAN-LAD: the SHEEHAN is taken as a pedicle and forms an anastomosis with the mid-LAD.
There are clips on the right side of the aorta possible suggestive of an additional bypass graft. Non selective aortogram was performed and did not demonstrate presence of additional patent grafts.
Plan:
-continuing R sided chest tube additional 24 hours. pending output hopefully can discontinue in AM
-continue IV lasix 40mg BID. Cr stable. patient was taking po lasix 80mg BID prior to admission.
-wean supp O2 as able.
-EF stable by echo at 50% 11/21/24.
-patient with known PAF. continue toprol, amiodarone, eliquis. no longer on tele
-lisinopril was stopped last admission due to hypotension
-Recent admission 11/21/24 until 11/30/24 started as a prehospital STEMI alert and patient was taken to the laboratory phlebotomist by Dr. Campbell where he was found to have no evidence of culprit lesion to explain presentation or ECG changes. Troponin peaked at
0.086. Troponin this admission was 0.042 on 12/04/24. Will manage as a nonischemic myocardial injury Troponin elevation based on recent laboratory phlebotomist findings.
HPI: Patient with recent admission to [facility], discharged 11/30/2024 presents back to [facility] last evening due to shortness of breath and hacking cough. Noted to be hypoxic and with temp of 100.2. Concern for
pneumonia/bronchitis. COVID and flu negative. On antibiotics per primary service. Noted to have recurrent right-sided pleural effusion on imaging, moderate to large by CT. Now s/p chest tube placement.
Progress Note - Cloth Spreader Screen Printing
Subjective
Date of Service: December 08, 2024
reports tongue is bothering him. reports breathing ok.
Objective
Labs:
12/08/24 07:02
12/08/24 07:02
Labs
Hgb 9.0 g/dL (13.0-18.0) L 12/08/24 07:02
Hct 31.0 % (39.0-52.0) L 12/08/24 07:02
Plt Count 781 10^3/uL (130-400) H 12/08/24 07:02
PT 14.1 Sec (11.4-14.6) 12/01/24 23:22
INR 1.06 12/01/24 23:22
APTT 26.6 Sec (23.4-35.0) 12/01/24 23:22
Sodium 131 mmol/L (135-145) L 12/08/24 07:02
Potassium 4.4 mmol/L (3.5-5.1) 12/08/24 07:02
BUN 11 mg/dl (9-20) 12/08/24 07:02
Creatinine 0.6 mg/dL (0.7-1.3) L 12/08/24 07:02
Glucose 209 mg/dl (70-99) H 12/08/24 07:02
Vital Signs and I&O:
Vital Signs
Temp Pulse Resp BP Pulse Ox
97.6 F 80 16 115/56 95
12/08/24 07:00 12/08/24 07:15 12/08/24 07:15 12/08/24 07:00 12/08/24 07:15
Vital Signs
Temp Pulse Resp BP Pulse Ox
97.6 F 80 16 115/56 95
12/08/24 07:00 12/08/24 07:15 12/08/24 07:15 12/08/24 07:00 12/08/24 07:15
Intake & Output
12/06/24 12/07/24 12/08/24 12/09/24
07:59 07:59 07:59 07:59
Intake Total 1230 / 1230 1950 / 1950 1600 / 1600
Output Total 3165 / 3165 3105 / 3105 2190 / 2190
Balance -1935 / -1935 -1155 / -1155 -590 / -590
Physical Exam
Physical Exam
GEN: No distress, awake, alert, oriented x3. on supp O2
HEENT: supple, anicteric, mmm, eomi
LUNGS: CTA B/L, no wheezes
CV: Reg, S1/S2, no murmur
ABD: soft, BS+, NT/ND
EXT: No cyanosis, clubbing. 1+ edema of B/L LE
NEURO: Gross non-focal
SKIN: Warm, pink, dry. No rash
[2024-12-08] MEDS: DUONEB 3 ML INH ×2 (15:51→19:32)
[2024-12-08 17:29] LABS: Glucose - Point of Care 207 mg/dl (70-99)
[2024-12-08] MEDS: MAGIC OR MIRACLE MOUTHWASH 5 ML PO ×2 (18:06→21:22)
[2024-12-08] MEDS: REQUIP 0.5 MG PO (21:22)
[2024-12-08] MEDS: MELATONIN 5 MG PO (21:22)
[2024-12-08] MEDS: LIPITOR 80 MG PO (21:23)
[2024-12-08 21:38] LABS: Glucose - Point of Care 213 mg/dl (70-99)
[2024-12-08 23:42] VITALS: BP 109/54
[2024-12-09] MEDS: MAGIC OR MIRACLE MOUTHWASH 5 ML PO ×5 (01:47→21:52)
[2024-12-09 05:23] VITALS: BMI 23.2
[2024-12-09] MEDS: SYMBICORT 80/4.5 MCG INHALER 2 PUFF INH ×2 (07:16→20:28)
[2024-12-09] MEDS: SPIRIVA RESPIMAT 2.5 MCG INH (07:16)
[2024-12-09] MEDS: DUONEB 3 ML INH ×4 (07:16→20:27)
[2024-12-09 07:58] VITALS: BP 121/55
[2024-12-09 08:11] LABS: Glucose - Point of Care 195 mg/dl (70-99)
[2024-12-09] MEDS: TOPROL XL 50 MG PO ×2 (08:37→20:12)
[2024-12-09] MEDS: PROTONIX 40 MG PO (08:37)
[2024-12-09] MEDS: FEOSOL 325 MG PO ×2 (08:37→20:12)
[2024-12-09] MEDS: LASIX 40 MG IV (08:37)
[2024-12-09] MEDS: PACERONE 200 MG PO (08:37)
[2024-12-09] MEDS: FOLVITE 1 MG PO (08:37)
[2024-12-09] MEDS: VITAMIN B1 100 MG PO (08:37)
[2024-12-09] MEDS: ELIQUIS 5 MG PO ×2 (08:37→20:12)
[2024-12-09] MEDS: FLUSH (NSS) 2 FLUSH IV (08:38)
[2024-12-09] MEDS: NOVOLOG FLEXPEN-HIGH RESISTANCE 2 UNITS SC (08:45)
[2024-12-09] MEDS: HYDROPHOR 1 APPLIC TOPICAL (08:49)
[2024-12-09 09:54] LABS: Hematocrit 32.4 % (39.0-52.0); Hemoglobin 9.3 g/dL (13.0-18.0); Mean Corp Hgb Conc. 28.7 g/dL (33.0-37.0); Mean Corpuscular Hgb 27.9 pg (27.0-31.0); Mean Corpuscular Volume 97.3 fL (80.0-94.0); Mean Platelet Volume 9.9 fL (7.4-10.4); Platelet Count 795 10^3/uL (130-400); Red Blood Cell Count 3.33 10^6/uL (4.70-6.10); Red Cell Dist. Width 15.9 % (11.5-14.5); White Blood Cell Count 11.3 10^3/uL (4.8-10.8)
[2024-12-09 10:27] LABS: ALT (SGPT) 26 U/L (0-50); AST (SGOT) 33 U/L (17-59); Albumin 2.7 g/dl (3.5-5.0); Alkaline Phosphatase 119 U/L (38-126); Blood Urea Nitrogen 18 mg/dl (9-20); Calcium 9.1 mg/dl (8.4-10.2); Carbon Dioxide 38 mmol/L (22-30); Chloride 90 mmol/L (98-107); Estimated Creatinine Clearance 111 ml/min; Glucose 161 mg/dl (70-99); Potassium 4.5 mmol/L (3.5-5.1); Sodium 132 mmol/L (135-145); Total Bilirubin 0.3 mg/dl (0.2-1.3); Total Protein 5.4 g/dl (6.3-8.2); eGFR > 60.00
[2024-12-09 11:44] LABS: Glucose - Point of Care 251 mg/dl (70-99)
--- NOTE | 2024-12-09 12:08 | W.PN.CARDCBS ---
Today's Communication / Plan
-
Change furosemide from 40 mg IV twice daily to 40 mg p.o. twice daily
Await decision regarding goals of care
Serum bicarbonate is 38 in the setting of COPD, history of hypercapnia, and IV diuretic-role for VBG/ABG?
Impression / Plan
-
Dr. Modesta Pretty
Model Builder: Dr Riggs
Impression:
Acute on Chronic Hypoxemic and Hypercapnic Respiratory Failure
PNA vs bronchitis
Acute on chronic HFpEF
Acute exacerbation of COPD
R Pleural effusion/status post chest tube
s/p right sided thora for 1.9 L 11/21/24
s/p attempted thora 11/29/24, felt to be loculated as only 5cc out
CAD
s/p remote CABG at [facility] with SHEEHAN to LAD
PCI with unclear details at [place]
Out of hospital STEMI alert 11/21/2024, no evidence of culprit lesion by cardiac cath to explain patient's presentation
GI bleed/macrocytic anemia s/p EGD/colon 11/24/24 with 1 angioectasia status post APC, and 3 colon polyp status post removal but no clear etiology of acute anemia
History of CVA 2010
Paroxysmal atrial fibrillation/flutter
Chronic Eliquis OAC
Chronic amiodarone therapy
PAD
s/p right femoral endarterectomy with saphenous vein angioplasty and right femoral to PT bypass 07/1123
chronic Plavix therapy
Poor medical compliance
Osteomyelitis toe
HTN
HLD
DM2
Hep C, treated and cleared infection
Ongoing tobacco use
h/o bedbugs 05/2024 admission
DNR code status
Dobutamine nuclear stress test 07/29/23 finds large inferior and basal inferior septal infarct without stephanie-infarct ischemia. Baseline LVEF 43%
Echo 07/28/23 finds normal LV size and function with LVEF in the low normal range estimated at 51% with basal to mid inferior wall severe hypokinesis. No significant valvular disease.
Echo 06/12/24: EF 50%, basal inferior wall hypokinetic on parasternal short axis views, RV mildly dilated, mildly dilated RA, no significant valvular disease noted
Echo 11/13/24: EF 50%, stage II diastolic dysfunction, trace MR, mild TR with PAP 44 mmHg no
Echo 11/21/24: Ejection fraction 50%, basal inferior akinesis, mild TR, PA systolic 44 mmHg, enlarged right ventricle with right ventricular hypokinesis
Cardiac catheterization 11/21/2024
LM: Large with mild disease
LAD: Large vessel that is proximally occluded within stent just after the takeoff of a large septal with the mid to distal vessel filled by patent SHEEHAN to LAD.
LCx: Large vessel with mild to moderate nonobstructive disease including a 50% stenosis in the mid body of the OM2
RCA: The proximal to distal vessel contains overlapping stents with mild ISR. There is a small region of haziness in the distal vessel as well as in the bifurcation of the distal RCA and RPDA/RPAV. This like represents eccentric atherosclerotic
plaque. There is DIMITRI-3 flow distally.
BYPASS GRAFT ANGIOGRAPHY:
SHEEHAN-LAD: the SHEEHAN is taken as a pedicle and forms an anastomosis with the mid-LAD.
There are clips on the right side of the aorta possible suggestive of an additional bypass graft. Non selective aortogram was performed and did not demonstrate presence of additional patent grafts.
Plan:
From a cardiac standpoint, he is fairly stable. Chest tube still in place, no airleak, defer to IR and hospitalist as to when tube can be pulled
Furosemide is 40 mg IV twice daily. Outpatient dose had been listed as 80 twice daily. Will start 40 mg p.o. twice daily. I note bicarb is 38.
If aggressive care is to be considered, for HFpEF we could restart Farxiga and add spironolactone. However, if there is to be a change in level of care and goals of care, this would not serve any purpose. Would continue to hold nitrates and
lisinopril given blood pressure.
I note that his serum bicarbonate is 38 and he has been receiving diuretics and has a history of hypercapnic respiratory failure. It there a role for VBG/ABG to help guide therapy?
He remains in sinus rhythm on amiodarone and is on Eliquis. Hemoglobin is stable.
His catheterization earlier in October is largely reassuring. Recent echo shows EF of 50% with LAD distribution wall motion abnormality
HPI: Patient with recent admission to [facility], discharged 11/30/2024 presents back to [facility] last evening due to shortness of breath and hacking cough. Noted to be hypoxic and with temp of 100.2. Concern for
pneumonia/bronchitis. COVID and flu negative. On antibiotics per primary service. Noted to have recurrent right-sided pleural effusion on imaging, moderate to large by CT. Now s/p chest tube placement.
Progress Note - Model Builder
Subjective
Date of Service: December 09, 2024:
He is restless, oriented today, generally unhappy, offers no specific physical complaints, Dr. Lagunas mentions hospice in his note, patient does not indicate awareness of this
Amiodarone 200 mg a day atorvastatin 80 mg a day, folate, Requip, thiamine, furosemide 40 IV twice daily, as outpatient had been 80 mg twice daily, not currently on lisinopril or isosorbide,'s on as outpatient but stopped for hypotension, was on
Farxiga, iron, metoprolol ER 50 twice daily, Spiriva, Symbicort, apixaban 5 twice daily pantoprazole, DuoNebs
121/55, pulse 71, resp rate 18, sats 94%, weight is 71.3 kg, unchanged, no acute distress but restless, rhonchi in lungs, JVD okay,Regular rate and rhythm, no obvious murmurs, no edema, abdomen benign
White count 11.3, hemoglobin 9.3, had been 9, platelets 795, sodium 132, potassium 4.5, CO2 38, bicarb 18, creatinine 0.6, albumin 2.7
Objective
Labs:
12/09/24 08:12
12/09/24 08:12
Labs
Hgb 9.3 g/dL (13.0-18.0) L 12/09/24 08:12
Hct 32.4 % (39.0-52.0) L 12/09/24 08:12
Plt Count 795 10^3/uL (130-400) H 12/09/24 08:12
PT 14.1 Sec (11.4-14.6) 12/01/24 23:22
INR 1.06 12/01/24 23:22
APTT 26.6 Sec (23.4-35.0) 12/01/24 23:22
Sodium 132 mmol/L (135-145) L 12/09/24 08:12
Potassium 4.5 mmol/L (3.5-5.1) 12/09/24 08:12
BUN 18 mg/dl (9-20) 12/09/24 08:12
Creatinine 0.6 mg/dL (0.7-1.3) L 12/09/24 08:12
Glucose 161 mg/dl (70-99) H 12/09/24 08:12
Vital Signs and I&O:
Vital Signs
Temp Pulse Resp BP Pulse Ox
36.3 C 71 18 121/55 94
12/09/24 07:58 12/09/24 11:22 12/09/24 11:22 12/09/24 07:58 12/09/24 08:00
Vital Signs
Temp Pulse Resp BP Pulse Ox
36.3 C 71 18 121/55 94
12/09/24 07:58 12/09/24 11:22 12/09/24 11:22 12/09/24 07:58 12/09/24 08:00
Intake & Output
12/07/24 12/08/24 12/09/24 12/10/24
07:59 07:59 07:59 07:59
Intake Total 1949 / 1949 1600 / 1600 194 / 1940
Output Total 3105 / 3105 2190 / 2190 2300 / 2300
Balance -1155 / -1155 -590 / -590 -360 / -360
Physical Exam
Physical Exam
See above
--- NOTE | 2024-12-09 12:48 | W.PN.PUL.V3 ---
Today's Communication / Plan
-
Overall decreased chest tube output
Chest x-ray improved
Patient anxious to be discharged-does not like the 'food'
Consider chest tube removal, however, potential for reaccumulation-patient aware
Diuretics changed to oral
Wean oxygen
Assessment
-
74-year-old man with multiple medical problems. Advanced COPD. Chronic hypercapnic and hypoxemic respiratory failure. Coronary artery disease post bypass, peripheral vascular disease, ongoing smoking, alcohol abuse disorder. Recently discharged
11/30/24 from the hospital after being admitted with change in mental status, acute hypercapnic on chronic hypercapnic respiratory failure, right pleural effusion, heart failure. Apparently refusing to use BiPAP in the hospital. Readmitted 12/01/2024
with worsening shortness of breath, cough, leukocytosis. Persistent right pleural effusion.
Acute on chronic hypoxemic respiratory failure-cannot rule out pneumonia/other source including urine as he urinalysis is abnormal/acute on chronic heart failure with preserved ejection fraction.
Required noninvasive mechanical ventilation for increased work of breathing.
Abnormal UA: Possible UTI
Leukocytosis with a left shift
Chronic hypercapnic respiratory failure-appears compensated-likely due to advanced COPD
VBG 7.42/71/54 (12/02/2024)
Chronic right pleural effusions present since July
Right chest tube placement 12/02/2024: Over 1.5 L drained so far clear fluid
pH 7.51/white blood cells 480/93% mononuclear/glucose 170/total protein 3.1/LDH 176/ambulates 56/triglycerides under 30.
s/p 11/21/2024 thoracentesis 1900 cc of clear pleural fluid.
Present since July 2024 based on chest x-ray.
Possible heart failure component with preserved ejection fraction proBNP in the 5999's
Chronic macrocytic anemia
EGD/colonoscopy without a source of bleeding
Acute blood loss anemia status post 4 units of packed red blood cells and recent admission 11/2024
s/p EGD/colon 11/24: No significant mass was found. More likely multifactorial with chronic disease plus potentially small bowel angiectasias
EKG changes initially admitted as ST elevation myocardial infraction alert
s/p Cardiac catheterization 11/21/2024: Nonobstructive coronary artery disease. Elevated LVEDP at 19.
Conditions present prior admission:
Lung nodule 7.4 mm on CAT scan January 2024-due for repeat CT. Request given 11/16/2024.
Active tobacco smoker-ongoing
Advanced COPD due to tobacco use not in an acute exacerbation
Chronic hypoxemic respiratory failure 2-3 L of supplemental oxygen.
On Trelegy
Last seen by Dr. Mckeon 11/16/2024
PFT 2022 - 1.43L 46%
Paroxysmal A-fib/flutter on Eliquis
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
CAD s/p CABG
PAD with Hx of right femoral endarterectomy and femoral bypas.
DM type II (HbA1C: 7.5 on 08/19/2024)
Hepatic steatosis-mild ascites on ultrasound
History of hepatitis C
History of alcohol abuse-Patient states no longer using 12/02/2024
History of tobacco abuse patient states that no longer using 12/02/2024
Plan
Respiratory status stable
Continue supplemental oxygen-currently on 2 L
Incentive spirometry encouraged
Symbicort and Spiriva continued-uses Trelegy as an outpatient
Nebulizers as needed
Aspiration precautions
BiPAP as needed-was refusing
Thoracentesis 11/21/24--1900 mL
Status post right chest tube 12/02/2024 -- fluid showing protein criteria 0.57 (but he is maintained on diuretics as OP, which may indicate pseudoexudate)
Culture negative to date, cyto neg 11/21, cyto 12/04/24-negative for malignant cells
Monitor chest tube output--2.6 L on 12/03/2024, 550 mL 12/04/2024 and already 615 mL and 12/05/2024
Output last 24 hours 30mL
Follow chest x-ray-- 12/06 improving
Output in past 24 hours 165mL, prior 30mL
Will observe another 24 hours
Consider removing chest tube-patient has been told fluid might reaccumulate
Cultures reviewed--
Urine culture with E. coli
Pleural fluid no growth
Influenza negative
Blood cultures negative
Empiric antibiotics-on Zosyn-finite course (12/06/24 was day 5)
Observe off antibiotics
Diuresis as tolerated-converted to oral diuretics
Monitor renal function, electrolytes, intake/output, lower extremity edema and weight
Replace electrolytes as needed
Unable to use Diamox due to sulfa allergy
Cardiology following-correspondence reviewed
Eliquis continues
On amiodarone [address] chest January 2024 showed no evidence for any pulmonary mass on the right.
He has a groundglass pulmonary nodule that needs to be followed.
He has a request for repeat CT chest given by Dr. Mckeon to him on 11/16/2024.
Stable CAT scan 12/01/2024.
Doubt malignant or infectious in etiology-pleural fluid culture negative.
Follow hemoglobin-no evidence for acute bleeding
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
polyps throughout with 3 of them removed and diverticulosis in the left colon
Transfuse as needed
Outpatient GI evaluation
DVT prophylaxis-on Eliquis
Nutrition
Early mobilization
Follow-up with Dr. Mckeon as previously scheduled after discharge.
Daughter Ariane has recently gotten involved with his father's care. Per nursing this admission patient was not sure about the DNR. This will need to be discussed with daughter.
Jazz- Updated sister via phone 12/06/24
Diagnostic Data
CXR 12/06/24- The tip of the right-sided chest tube is at the lateral right base and there has been near complete resolution of the pleural fluid collection at the right lung base in the interval since the prior study. There is no pneumothorax
Chest X-Ray: 12/03/24- Right pleural pigtail catheter is present. Slight interval decrease in size of right pleural effusion. No evidence for significant pneumothorax.
CT Scan:
CT chest 12/02/2024: Old right 4 through 11 rib fractures; Moderate to large right pleural effusion. Compressive atelectasis. No significant left pleural effusion. Small nodular opacity in the left upper lobe new compared to prior CAT scan.
Echo: 11/21/24- Normal left ventricular size and function. Mild concentric left ventricular hypertrophy. Left ventricular ejection fraction is 50% by visual assessment. There is basal inferior akinesis. Stage II diastolic dysfunction suggestive of
abnormal relaxation and increased filling pressures. Mitral valve opens normally. Thickened mitral valve leaflets. Mitral annular calcification. Trace mitral regurgitation is seen. Mildly dilated left atrium. Tricuspid valve opens normally. Mild
tricuspid regurgitation. Estimated pulmonary artery pressure of 44 mmHg. Assuming a right atrial pressure of 8 mmHg. Dilated right atrium. Enlarged right ventricular size. Right ventricular hypokinesis. Since echocardiogram May 2024, there is
no significant change.
PFT's:
Reports and relevant images were personally reviewed.
Subjective Data
-
Date of Service:
Date of Service: December 09, 2024
Chief Complaint: Pulmonary Follow Up and Dyspnea Follow Up
Subjective:
Tells me he wants to leave because he is unhappy with the food, no complaints of worsening shortness of breath, chest pain or abdominal pain
Review of Systems
General: Other (Per HPI)
Objective Data
Data Reviewed
Vital Signs / I&O:
Vital Signs
Temp Pulse Resp BP Pulse Ox
97.3 F 71 18 121/55 94
12/09/24 07:58 12/09/24 11:22 12/09/24 11:22 12/09/24 07:58 12/09/24 08:00
Intake and Output
12/08/24 12/09/24 12/10/24
06:59 06:59 06:59
Intake Total 1600 / 1600 194 / 1939
Output Total 2190 / 2190 0 / 230
Balance -590 / -590 -360 / -360
SaO2: 94
Nasal Cannula flow liters per minute: 2
Physical Exam
General: Respiratory Distress (n), Comfortable and Other (NAD)
HEENT: Normocephalic, Anicteric and Moist Mucous Membranes
Cardiovascular: Regular Rhythm
Respiratory: Crackles, Non-Labored Respirations and Chest Tube
GI: Soft, Non Distended and Non Tender
Neurology: Awake, Alert and No Motor Deficits
Skin: Warm, Good Color and Cyanosis (n)
Labs/Micro/Reports
Lab Data
12/09/24 08:12
12/09/24 08:12
Microbiology
12/01/24 23:21 Blood/Venous Blood Culture - Final
No Growth - Final Report
12/01/24 23:21 Blood/Venous Blood Culture - Final
No Growth - Final Report
[2024-12-09] MEDS: NOVOLOG FLEXPEN-HIGH RESISTANCE 7 UNITS SC ×2 (13:03→17:14)
--- NOTE | 2024-12-09 13:37 | W.PN.HOSP.TC ---
Today's Communication/Plan
-
switch to PO lasix
chest tube management
Assessment / Plan
Assessment / Plan
A/P: Patient is a 74y M with PMH significant for chronic combined respiratory failure, severe COPD, CHF and ASCVD who presents to ED complaining of increased SOB and new cough.
#Acute on Chronic Hypoxemic and Hypercapnic Respiratory Failure, multifactorial in nature
- Respiratory failure likely multifactorial and secondary to CHF, pleural effusion +/- respiratory infection / bacterial pneumonia.
- Continue supportive care including O2 supplementation, NIPPV as tolerated, etc.
See next items for each specific problem
now on 2L
Note findings on CT: Chest 12/02:
Incidental findings:
#Fractures of the right fourth through 11th ribs, which morphologically appear to be old.
#Small focus of reticular and small nodular opacities in the anteromedial left upper lobe, which could represent scarring or a small focus of small airway pneumonitis, new since prior CT examination.
#Both adrenal glands are enlarged, incompletely included on the [id number], similar appearance to prior CT, compatible with hyperplasia and/or adenomas. Of note, imaging studies do not address the functional status of an adrenal mass. If there
are clinical signs or symptoms of adrenal hyperfunction, biochemical testing may be required to determine if the lesion is excreting excess hormone.
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
# Right Pleural Effusion, chronic since July, loculated - with chest tube in
-Moderate to large right pleural effusion.
-S/P IR chest tube placement- fluid appears transudative
-Chest tube settings
-Pulmonary consultation appreciated
-IR placed chest tube 12/02- continue per Pulm recs
Tube continues to drain - improved - f/u pulmonary for chest tube clamping/removal
Cultures negative
# Acute on Chronic HFpEF -
- IV lasix - transitioned to PO today
- Follow I/Os, daily weights, etc.
# Leukocytosis likely from a Bronchitis / Pneumonia - Patient with cough and worsened dyspnea.
- COVID and flu negative in the ED.
- IV abx with Zosyn - 5 day course completed
- Follow fever curve, leukocytosis and monitor for any new / focal symptoms.
#Thrombocytosis
-most likely acute phase reactant
-monitor
#Hypokalemia
-monitor and replete
#Hyponatremia
-Acute drop, possibly secondary to SIADH
� Repeat BMP
Monitor closely
-lasix
-fluid restriction
#UTI
-ecoli
-zosyn course completed
# Severe COPD and MARIJA
- No active wheezing appreciated today.
- NIPPV as patient needs / tolerates
- family states that they have a machine at home today for outpatient use.
Pt not tolerating BIPAP
- Pulmonary - added Spiriva/Symbicort/Acapella
# Anemia, Macrocytic anemia - possibly related to alcohol. Levels improving today
-Transfuse as necessary. --> 4 units PRBCs so far, last given on 11/23/2024 - not needed today
Underwent EGD/colonoscopy on 11/24/2024 showing:
diffuse severe mucosal changes with discoloration,
granularity and altered texture in the entire examined stomach biopsies taken,
a 3 mm AVM in the gastric body s/p APC,
colonoscopy showed multiple polyps throughout with 3 of them removed and diverticulosis in the left colon
GI recommended outpatient [id number] mass or source of bleeding.
- Suspected recent blood loss s/p GI evaluation during recent stay.
- EGD and colonoscopy without obvious source of bleeding.
- Outpatient capsule study recommended by GI
- Hgb fairly stable compared to recent discharge.
- Continue iron supplementation
- Follow for any changes.
-CBC daily
-Start back PPI
# ASCVD - Stable. Cath done during recent visit with non-obstructing coronary disease.
- Continue metoprolol, statin, etc. per Cards recs
- Off of antiplatelets given recent blood loss / suspected GI source. - single agent Eliquis only per Cards due to GI bleed.
# Paroxysmal Atrial Fibrillation - Stable.
Continue metoprolol.
Continue amiodarone per Cards.
Resume Eliquis
#. DM-II - Stable.
Hold PO medications including newly added SGLT2 inhibitor.
- Follow glucose and cover with SSI for now.
- A1C during recent visit was 5.1%.
# Benign Hypertension - Currently relatively hypotensive - similar to prior admission.
Cont BB per Cards, hold parameters
- Patient received no lisinopril or isosorbide for the entirety of his recent admission - and BP remained in the 90-100s.
.
# Lung nodule 7.4 mm on CAT scan January 2024-due for repeat CT. Request given 11/16/2024.
DVT Prophylaxis: Eliquis
Code Status: DNR; Dispo: Plan for hospice as per daughter; Hospice team working with family regarding this; Daughter cannot take care of patient as he refuses everything with poor insight; patient states he wants rehab; disposition efforts ongoing.
Patient has poor insight
Anticipated Discharge: > 48 hours
Subjective/Interval History
-
Date of Service: December 09, 2024
no acute events
Objective Data
-
Labs:
Laboratory Results
12/09/24
08:12
WBC 11.3 H
Hgb 9.3 L
Hct 32.4 L
Plt Count 795 H
Sodium 132 L
Potassium 4.5
Chloride 90 L
Carbon Dioxide 38 H
BUN 18
Creatinine 0.6 L
Glucose 161 H
Calcium 9.1
Total Bilirubin 0.3
AST 33
ALT 26
Alkaline Phosphatase 119
Vital Signs:
Vital Signs
Temp Pulse Resp BP Pulse Ox
97.3 F 71 18 121/55 94
12/09/24 07:58 12/09/24 11:22 12/09/24 11:22 12/09/24 07:58 12/09/24 12:54
I&O
12/08/24 12/09/24 12/10/24
06:59 06:59 06:59
Intake Total 1600 / 1600 194 / 1939
Output Total 2190 / 2190 2300 / 2300
Balance -590 / -590 -360 / -360
Review of Systems
-
History Source: Patient
All other systems: Not reviewed unless documented
Physical Exam
-
General: No Apparent Distress and Appears Chronically Ill
HEENT: Nose Appears Normal and Ears Appear Normal
Respiratory: Rhonchi, Crackles and Chest Tubes
Cardiac: Regular Rhythm and S1/S2
GI: Soft, Nontender and Nondistended
Musculoskeletal: No Clubbing, No Cyanosis, Edema, Right Lower Extrem and Edema, Left Lower Extrem
Skin: Warm and Dry
Neuro: Awake and Alert
Psych: Calm and Depressed
Data Reviewed
-
Diagnostic Radiology: Report Reviewed by me
CT Scan: Report Reviewed by me
Labs: Labs Reviewed by me
[2024-12-09 15:14] VITALS: BP 116/49
[2024-12-09 15:54] VITALS: BP 116/56; PULSE 74; O2SAT 96
[2024-12-09] MEDS: LASIX 40 MG PO (16:13)
[2024-12-09 16:48] LABS: Glucose - Point of Care 285 mg/dl (70-99)
[2024-12-09] MEDS: LIPITOR 80 MG PO (21:52)
[2024-12-09] MEDS: REQUIP 0.5 MG PO (21:52)
[2024-12-09 21:57] LABS: Glucose - Point of Care 290 mg/dl (70-99)
[2024-12-09] MEDS: MELATONIN 5 MG PO (22:18)
[2024-12-09 23:27] VITALS: BP 116/52
[2024-12-10 05:44] VITALS: BMI 23.2
[2024-12-10 06:01] LABS: Hematocrit 29.7 % (39.0-52.0); Hemoglobin 8.8 g/dL (13.0-18.0); Mean Corp Hgb Conc. 29.6 g/dL (33.0-37.0); Mean Corpuscular Hgb 28.4 pg (27.0-31.0); Mean Corpuscular Volume 95.8 fL (80.0-94.0); Mean Platelet Volume 9.6 fL (7.4-10.4); Platelet Count 821 10^3/uL (130-400); Red Cell Dist. Width 16.3 % (11.5-14.5); White Blood Cell Count 11.1 10^3/uL (4.8-10.8)
[2024-12-10 06:15] LABS: ALT (SGPT) 24 U/L (0-50); AST (SGOT) 25 U/L (17-59); Albumin 2.7 g/dl (3.5-5.0); Alkaline Phosphatase 133 U/L (38-126); Blood Urea Nitrogen 19 mg/dl (9-20); Chloride 89 mmol/L (98-107); Estimated Creatinine Clearance 95 ml/min; Glucose 210 mg/dl (70-99); Potassium 4.7 mmol/L (3.5-5.1); Sodium 133 mmol/L (135-145); Total Bilirubin 0.2 mg/dl (0.2-1.3); Total Protein 5.2 g/dl (6.3-8.2); eGFR > 60.00
[2024-12-10 06:26] LABS: Carbon Dioxide 32 mmol/L (22-30)
[2024-12-10 07:05] VITALS: BP 106/53
[2024-12-10 07:07] LABS: Glucose - Point of Care 203 mg/dl (70-99)
[2024-12-10] MEDS: SPIRIVA RESPIMAT 2.5 MCG INH (07:13)
[2024-12-10] MEDS: SYMBICORT 80/4.5 MCG INHALER 2 PUFF INH ×2 (07:13→20:12)
[2024-12-10] MEDS: DUONEB 3 ML INH ×2 (07:13→20:12)
[2024-12-10] MEDS: NOVOLOG FLEXPEN-HIGH RESISTANCE 4 UNITS SC ×2 (07:48→14:04)
[2024-12-10] MEDS: VITAMIN B1 100 MG PO (07:57)
[2024-12-10] MEDS: MAGIC OR MIRACLE MOUTHWASH 5 ML PO ×4 (07:57→21:48)
[2024-12-10] MEDS: FOLVITE 1 MG PO (07:57)
[2024-12-10] MEDS: FEOSOL 325 MG PO ×2 (07:57→21:28)
[2024-12-10] MEDS: PACERONE 200 MG PO (07:57)
[2024-12-10] MEDS: ELIQUIS 5 MG PO ×2 (07:58→21:31)
[2024-12-10] MEDS: TOPROL XL 50 MG PO ×2 (07:58→21:31)
[2024-12-10] MEDS: PROTONIX 40 MG PO (07:58)
[2024-12-10] MEDS: HYDROPHOR 1 APPLIC TOPICAL (07:59)
[2024-12-10] MEDS: LASIX 40 MG PO ×2 (08:01→17:08)
--- NOTE | 2024-12-10 10:39 | W.PN.HOSP.TC ---
Addendum entered and electronically signed by Yinka Lagunas MD 12/10/24 13:52:
Sepsis, POA
Left Ear Stage 3 Pressure Injury , POA
Left Buttock Stage 2 Pressure Injury, POA
Original Note:
Today's Communication/Plan
-
chest tube removal
po lasix
Assessment / Plan
Assessment / Plan
A/P: Patient is a 74y M with PMH significant for chronic combined respiratory failure, severe COPD, CHF and ASCVD who presents to ED complaining of increased SOB and new cough.
#Acute on Chronic Hypoxemic and Hypercapnic Respiratory Failure, multifactorial in nature
- Respiratory failure likely multifactorial and secondary to CHF, pleural effusion +/- respiratory infection / bacterial pneumonia.
- Continue supportive care including O2 supplementation, NIPPV as tolerated, etc.
See next items for each specific problem
now on 2L
Note findings on CT: Chest 12/02:
Incidental findings:
#Fractures of the right fourth through 11th ribs, which morphologically appear to be old.
#Small focus of reticular and small nodular opacities in the anteromedial left upper lobe, which could represent scarring or a small focus of small airway pneumonitis, new since prior CT examination.
#Both adrenal glands are enlarged, incompletely included on the [id number], similar appearance to prior CT, compatible with hyperplasia and/or adenomas. Of note, imaging studies do not address the functional status of an adrenal mass. If there
are clinical signs or symptoms of adrenal hyperfunction, biochemical testing may be required to determine if the lesion is excreting excess hormone.
#There appear to be multiple small splenules in the left upper quadrant, similar to prior examination, and may be residual splenules after previous splenectomy-cannot find splenectomy in pt history
# Right Pleural Effusion, chronic since July, loculated - with chest tube in
-Moderate to large right pleural effusion.
-S/P IR chest tube placement- fluid appears transudative
-Chest tube settings
-Pulmonary consultation appreciated
-IR placed chest tube 2/8- continue per Pulm recs
Tube continues to drain - improved - f/u pulmonary for chest tube clamping/removal today
Cultures negative
# Acute on Chronic HFpEF -
- IV lasix - transitioned to PO 12/09
- Follow I/Os, daily weights, etc.
# Leukocytosis likely from a Bronchitis / Pneumonia - Patient with cough and worsened dyspnea.
- COVID and flu negative in the ED.
- IV abx with Zosyn - 5 day course completed
- Follow fever curve, leukocytosis and monitor for any new / focal symptoms.
#Thrombocytosis
-most likely acute phase reactant
-monitor
#Hypokalemia
-monitor and replete
#Hyponatremia
-Acute drop, possibly secondary to SIADH
� Repeat BMP
Monitor closely
-lasix
-fluid restriction
#UTI
-ecoli
-zosyn course completed
# Severe COPD and MARIJA
- No active wheezing appreciated today.
- NIPPV as patient needs / tolerates
- family states that they have a machine at home today for outpatient use.
Pt not tolerating BIPAP
- Pulmonary - added Spiriva/Symbicort/Acapella
# Anemia, Macrocytic anemia - possibly related to alcohol. Levels improving today
-Transfuse as necessary. --> 4 units PRBCs so far, last given on 11/23/2024 - not needed today
Underwent EGD/colonoscopy on 11/24/2024 showing:
diffuse severe mucosal changes with discoloration,
granularity and altered texture in the entire examined stomach biopsies taken,
a 3 mm AVM in the gastric body s/p APC,
colonoscopy showed multiple polyps throughout with 3 of them removed and diverticulosis in the left colon
GI recommended outpatient [id number] mass or source of bleeding.
- Suspected recent blood loss s/p GI evaluation during recent stay.
- EGD and colonoscopy without obvious source of bleeding.
- Outpatient capsule study recommended by GI
- Hgb fairly stable compared to recent discharge.
- Continue iron supplementation
- Follow for any changes.
-CBC daily
-Start back PPI
# ASCVD - Stable. Cath done during recent visit with non-obstructing coronary disease.
- Continue metoprolol, statin, etc. per Cards recs
- Off of antiplatelets given recent blood loss / suspected GI source. - single agent Eliquis only per Cards due to GI bleed.
# Paroxysmal Atrial Fibrillation - Stable.
Continue metoprolol.
Continue amiodarone per Cards.
Resume Eliquis
#. DM-II - Stable.
Hold PO medications including newly added SGLT2 inhibitor.
- Follow glucose and cover with SSI for now.
- A1C during recent visit was 5.1%.
# Benign Hypertension - Currently relatively hypotensive - similar to prior admission.
Cont BB per Cards, hold parameters
- Patient received no lisinopril or isosorbide for the entirety of his recent admission - and BP remained in the 90-100s.
.
# Lung nodule 7.4 mm on CAT scan January 2024-due for repeat CT. Request given 11/16/2024.
DVT Prophylaxis: Eliquis
Code Status: DNR; Dispo: Plan for hospice as per daughter; Hospice team working with family regarding this; Daughter cannot take care of patient as he refuses everything with poor insight; patient states he wants rehab; disposition efforts ongoing.
Patient has poor insight
Anticipated Discharge: 24 - 48 hours
Subjective/Interval History
-
Date of Service: December 10, 2024
Chest tube output reduced, planning on removing
Objective Data
-
Labs:
Laboratory Results
12/10/24
04:53
WBC 11.1 H
Hgb 8.8 L
Hct 29.7 L
Plt Count 821 H
Sodium 133 L
Potassium 4.7
Chloride 89 L
Carbon Dioxide 32 H
BUN 19
Creatinine 0.7
Glucose 210 H
Calcium 9.0
Total Bilirubin 0.2
AST 25
ALT 24
Alkaline Phosphatase 133 H
Vital Signs:
Vital Signs
Temp Pulse Resp BP Pulse Ox
99.0 F 63 18 106/53 95
12/10/24 07:05 12/10/24 07:16 12/10/24 07:16 12/10/24 07:05 12/10/24 07:16
I&O
12/09/24 12/10/24 12/11/24
06:59 06:59 06:59
Intake Total 1940 / 1940 1380 / 1380
Output Total 2300 / 2300 3160 / 3160
Balance -360 / -360 -1780 / -1780
Review of Systems
-
History Source: Patient
All other systems: Not reviewed unless documented
Physical Exam
-
General: No Apparent Distress and Appears Chronically Ill
HEENT: Nose Appears Normal and Ears Appear Normal
Respiratory: Rhonchi, Crackles and Chest Tubes
Cardiac: Regular Rhythm and S1/S2
GI: Soft, Nontender and Nondistended
Musculoskeletal: No Clubbing, No Cyanosis, Edema, Right Lower Extrem and Edema, Left Lower Extrem
Skin: Warm and Dry
Neuro: Awake and Alert
Psych: Calm and Depressed
Data Reviewed
-
Diagnostic Radiology: Report Reviewed by me
CT Scan: Report Reviewed by me
Labs: Labs Reviewed by me
[2024-12-10] MEDS: DUONEB INH ×2 (11:33→15:30)
[2024-12-10 14:03] LABS: Glucose - Point of Care 220 mg/dl (70-99)
--- NOTE | 2024-12-10 14:14 | W.PN.CARDCBS ---
Today's Communication / Plan
-
Will sign off given plans to transition to hospice
See below for medication recommendations
Impression / Plan
-
Dr. Modesta Pretty
Senior Embedded Software Engineer: Dr Riggs
Impression:
Acute on Chronic Hypoxemic and Hypercapnic Respiratory Failure
PNA vs bronchitis
Acute on chronic HFpEF
Acute exacerbation of COPD
R Pleural effusion/status post chest tube
s/p right sided thora for 1.9 L 11/21/24
s/p attempted thora 11/29/24, felt to be loculated as only 5cc out
CAD
s/p remote CABG at [facility] with SHEEHAN to LAD
PCI with unclear details at [facility]
Out of hospital STEMI alert 11/21/2024, no evidence of culprit lesion by cardiac cath to explain patient's presentation
GI bleed/macrocytic anemia s/p EGD/colon 11/24/24 with 1 angioectasia status post APC, and 3 colon polyp status post removal but no clear etiology of acute anemia
History of CVA 2010
Paroxysmal atrial fibrillation/flutter
Chronic Eliquis OAC
Chronic amiodarone therapy
PAD
s/p right femoral endarterectomy with saphenous vein angioplasty and right femoral to PT bypass 07/1123
chronic Plavix therapy
Poor medical compliance
Osteomyelitis toe
HTN
HLD
DM2
Hep C, treated and cleared infection
Ongoing tobacco use
h/o bedbugs 05/2024 admission
DNR code status
Dobutamine nuclear stress test 07/29/23 finds large inferior and basal inferior septal infarct without stephanie-infarct ischemia. Baseline LVEF 43%
Echo 07/28/23 finds normal LV size and function with LVEF in the low normal range estimated at 51% with basal to mid inferior wall severe hypokinesis. No significant valvular disease.
Echo 06/12/24: EF 50%, basal inferior wall hypokinetic on parasternal short axis views, RV mildly dilated, mildly dilated RA, no significant valvular disease noted
Echo 11/13/24: EF 50%, stage II diastolic dysfunction, trace MR, mild TR with PAP 44 mmHg no
Echo 11/21/24: Ejection fraction 50%, basal inferior akinesis, mild TR, PA systolic 44 mmHg, enlarged right ventricle with right ventricular hypokinesis
Cardiac catheterization 11/21/2024
LM: Large with mild disease
LAD: Large vessel that is proximally occluded within stent just after the takeoff of a large septal with the mid to distal vessel filled by patent SHEEHAN to LAD.
LCx: Large vessel with mild to moderate nonobstructive disease including a 50% stenosis in the mid body of the OM2
RCA: The proximal to distal vessel contains overlapping stents with mild ISR. There is a small region of haziness in the distal vessel as well as in the bifurcation of the distal RCA and RPDA/RPAV. This like represents eccentric atherosclerotic
plaque. There is DIMITRI-3 flow distally.
BYPASS GRAFT ANGIOGRAPHY:
SHEEHAN-LAD: the SHEEHAN is taken as a pedicle and forms an anastomosis with the mid-LAD.
There are clips on the right side of the aorta possible suggestive of an additional bypass graft. Non selective aortogram was performed and did not demonstrate presence of additional patent grafts.
Plan:
Cardiac status is overall stable.
Given that plan is for hospice, it makes sense to continue meds that will prevent A-fib and heart failure, but other cardiac meds can be discontinued.
Applying this philosophy, recommended cardiac meds at discharge:
Amiodarone 200 mg a day to maintain sinus rhythm
Metoprolol ER 50 mg twice daily, again to help maintain sinus rhythm and control blood pressure
Furosemide 40 mg twice daily to prevent heart failure
Utility of atorvastatin and apixaban are limited, I am comfortable stopping these
In the event that focus is solely on comfort and pain relief as needed would not object to discontinuation of all cardiac meds if that is the preference of decision makers
We will sign off. Please call with questions.
HPI: Patient with recent admission to [facility] discharged 11/30/2024 presents back to [facility] last evening due to shortness of breath and hacking cough. Noted to be hypoxic and with temp of 100.2. Concern for
pneumonia/bronchitis. COVID and flu negative. On antibiotics per primary service. Noted to have recurrent right-sided pleural effusion on imaging, moderate to large by CT. Now s/p chest tube placement.
Progress Note - Senior Embedded Software Engineer
Subjective
Date of Service: December 10, 2024:
Per , plan is for hospice per daughter
Medications: Amiodarone 200 a day, atorvastatin 80 mg a day, folic acid, Requip, thiamine, iron, metoprolol ER 50 twice daily, Spiriva, Symbicort, apixaban 5 mg twice daily, pantoprazole, furosemide 40 p.o. twice daily
106/53, pulse 63, respiratory rate 18, afebrile, O2 sats 84% on room air, 96% on 2 L weight is 71.1 kg, stable, exam unchanged, diminished breath sounds with some rhonchi, regular rate and rhythm, JVD okay, not much edema
Blood count 11.1, hemoglobin potassium 4.7, CO2 32, BUN/creatinine 19 and 0.7
Objective
Labs:
12/10/24 04:53
12/10/24 04:53
Labs
Hgb 8.8 g/dL (13.0-18.0) L 12/10/24 04:53
Hct 29.7 % (39.0-52.0) L 12/10/24 04:53
Plt Count 821 10^3/uL (130-400) H 12/10/24 04:53
PT 14.1 Sec (11.4-14.6) 12/01/24 23:22
INR 1.06 12/01/24 23:22
APTT 26.6 Sec (23.4-35.0) 12/01/24 23:22
Sodium 133 mmol/L (135-145) L 12/10/24 04:53
Potassium 4.7 mmol/L (3.5-5.1) 12/10/24 04:53
BUN 19 mg/dl (9-20) 12/10/24 04:53
Creatinine 0.7 mg/dL (0.7-1.3) 12/10/24 04:53
Glucose 210 mg/dl (70-99) H 12/10/24 04:53
Vital Signs and I&O:
Vital Signs
Temp Pulse Resp BP Pulse Ox
37.2 C 63 18 106/53 84
12/10/24 07:05 12/10/24 07:16 12/10/24 07:16 12/10/24 07:05 12/10/24 11:33
Vital Signs
Temp Pulse Resp BP Pulse Ox
37.2 C 63 18 106/53 84
12/10/24 07:05 12/10/24 07:16 12/10/24 07:16 12/10/24 07:05 12/10/24 11:33
Intake & Output
12/08/24 12/09/24 12/10/24 12/11/24
07:59 07:59 07:59 07:59
Intake Total 1600 / 1600 1940 / 1940 1380 / 1380 0 / 0
Output Total 2190 / 2190 2300 / 2300 3160 / 3160
Balance -590 / -590 -360 / -360 -1780 / -1780 0 / 0
Physical Exam
Physical Exam
See above
--- NOTE | 2024-12-10 14:41 | W.PN.PUL.V3 ---
Today's Communication / Plan
-
Minimal chest tube output
Discontinue chest tube
Wean oxygen
Increase activity
Patient has been told to expect potential pleural fluid reaccumulation requiring repeat thoracentesis and possibly even Pleurx catheter
Assessment
-
74-year-old man with multiple medical problems. Advanced COPD. Chronic hypercapnic and hypoxemic respiratory failure. Coronary artery disease post bypass, peripheral vascular disease, ongoing smoking, alcohol abuse disorder. Recently discharged
11/30/24 from the hospital after being admitted with change in mental status, acute hypercapnic on chronic hypercapnic respiratory failure, right pleural effusion, heart failure. Apparently refusing to use BiPAP in the hospital. Readmitted 12/01/2024
with worsening shortness of breath, cough, leukocytosis. Persistent right pleural effusion.
Acute on chronic hypoxemic respiratory failure-cannot rule out pneumonia/other source including urine as he urinalysis is abnormal/acute on chronic heart failure with preserved ejection fraction.
Required noninvasive mechanical ventilation for increased work of breathing.
Abnormal UA: Possible UTI
Leukocytosis with a left shift
Chronic hypercapnic respiratory failure-appears compensated-likely due to advanced COPD
VBG 7.42/71/54 (12/02/2024)
Chronic right pleural effusions present since July
Right chest tube placement 12/02/2024: Over 1.5 L drained so far clear fluid
pH 7.51/white blood cells 480/93% mononuclear/glucose 170/total protein 3.1/LDH 176/ambulates 56/triglycerides under 30.
s/p 11/21/2024 thoracentesis 1900 cc of clear pleural fluid.
Present since July 2024 based on chest x-ray.
Possible heart failure component with preserved ejection fraction proBNP in the 5999's
Chronic macrocytic anemia
EGD/colonoscopy without a source of bleeding
Acute blood loss anemia status post 4 units of packed red blood cells and recent admission 11/2024
s/p EGD/colon 11/24: No significant mass was found. More likely multifactorial with chronic disease plus potentially small bowel angiectasias
EKG changes initially admitted as ST elevation myocardial infraction alert
s/p Cardiac catheterization 11/21/2024: Nonobstructive coronary artery disease. Elevated LVEDP at 19.
Conditions present prior admission:
Lung nodule 7.4 mm on CAT scan January 2024-due for repeat CT. Request given 11/16/2024.
Active tobacco smoker-ongoing
Advanced COPD due to tobacco use not in an acute exacerbation
Chronic hypoxemic respiratory failure 2-3 L of supplemental oxygen.
On Trelegy
Last seen by Dr. Mckeon 11/16/2024
PFT 2022 - 1.43L 46%
Paroxysmal A-fib/flutter on Eliquis
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
CAD s/p CABG
PAD with Hx of right femoral endarterectomy and femoral bypas.
DM type II (HbA1C: 7.5 on 08/19/2024)
Hepatic steatosis-mild ascites on ultrasound
History of hepatitis C
History of alcohol abuse-Patient states no longer using 12/02/2024
History of tobacco abuse patient states that no longer using 12/02/2024
Plan
Respiratory status stable
Continue supplemental oxygen-currently on 2 L
Incentive spirometry encouraged
Symbicort and Spiriva continued-uses Trelegy as an outpatient
Nebulizers as needed
Aspiration precautions
BiPAP as needed-was refusing
Thoracentesis 11/21/24--1900 mL
Status post right chest tube 12/02/2024 -- fluid showing protein criteria 0.57 (but he is maintained on diuretics as OP, which may indicate pseudoexudate)
Culture negative to date, cyto neg 11/21, cyto 12/04/24-negative for malignant cells
Monitor chest tube output--2.6 L on 12/03/2024, 550 mL 12/04/2024 and already 615 mL and 12/05/2024
Output last 24 hours 30mL
Follow chest x-ray-- 12/06 improving
Chest tube output-past 24 hours 165mL, prior 30mL-60 mL in the last 24 hours-reviewed with nursing
Discontinue chest tube-contacted interventional radiology 12/10/2024
Patient has been told numerous times there is a good chance for pleural fluid reaccumulation, if increasing shortness of breath then chest x-ray and repeat thoracentesis-eventual consideration towards Pleurx if keeps coming back
Cultures reviewed--
Urine culture with E. coli
Pleural fluid no growth
Influenza negative
Blood cultures negative
Empiric antibiotics-on Zosyn-finite course (12/06/24 was day 5)
Continue to observe off antibiotics
Continue diuresis as tolerated-converted to oral diuretics
Monitor renal function, electrolytes, intake/output, lower extremity edema and weight
Replace electrolytes as needed
Unable to use Diamox due to sulfa allergy
Cardiology following-correspondence reviewed
Eliquis continues
On amiodarone [address] chest January 2024 showed no evidence for any pulmonary mass on the right.
He has a groundglass pulmonary nodule that needs to be followed.
He has a request for repeat CT chest given by Dr. Mckeon to him on 11/16/2024.
Stable CAT scan 12/01/2024.
Doubt malignant or infectious in etiology-pleural fluid culture negative.
Follow hemoglobin-no evidence for acute bleeding
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
polyps throughout with 3 of them removed and diverticulosis in the left colon
Transfuse as needed
Outpatient GI evaluation
DVT prophylaxis-on Eliquis
Nutrition
Early mobilization
Follow-up with Dr. Mckeon as previously scheduled after discharge.
Daughter Ariane has recently gotten involved with his father's care. Per nursing this admission patient was not sure about the DNR. This will need to be discussed with daughter.
Jazz- Updated sister via phone 12/06/24
Diagnostic Data
CXR 12/06/24- The tip of the right-sided chest tube is at the lateral right base and there has been near complete resolution of the pleural fluid collection at the right lung base in the interval since the prior study. There is no pneumothorax
Chest X-Ray: 12/03/24- Right pleural pigtail catheter is present. Slight interval decrease in size of right pleural effusion. No evidence for significant pneumothorax.
CT Scan:
CT chest 12/02/2024: Old right 4 through 11 rib fractures; Moderate to large right pleural effusion. Compressive atelectasis. No significant left pleural effusion. Small nodular opacity in the left upper lobe new compared to prior CAT scan.
Echo: 11/21/24- Normal left ventricular size and function. Mild concentric left ventricular hypertrophy. Left ventricular ejection fraction is 50% by visual assessment. There is basal inferior akinesis. Stage II diastolic dysfunction suggestive of
abnormal relaxation and increased filling pressures. Mitral valve opens normally. Thickened mitral valve leaflets. Mitral annular calcification. Trace mitral regurgitation is seen. Mildly dilated left atrium. Tricuspid valve opens normally. Mild
tricuspid regurgitation. Estimated pulmonary artery pressure of 44 mmHg. Assuming a right atrial pressure of 8 mmHg. Dilated right atrium. Enlarged right ventricular size. Right ventricular hypokinesis. Since echocardiogram May 2024, there is
no significant change.
PFT's:
Reports and relevant images were personally reviewed.
Subjective Data
-
Date of Service:
Date of Service: December 10, 2024
Chief Complaint: Pulmonary Follow Up and Dyspnea Follow Up
Subjective:
Out of bed, minimal chest tube drainage, still complaining about the food, wants to go home, no complaints of shortness of breath or abdominal pain
Review of Systems
General: Other (Per HPI)
Objective Data
Data Reviewed
Vital Signs / I&O:
Vital Signs
Temp Pulse Resp BP Pulse Ox
99.0 F 63 18 106/53 84
12/10/24 07:05 12/10/24 07:16 12/10/24 07:16 12/10/24 07:05 12/10/24 11:33
Intake and Output
12/09/24 12/10/24 12/11/24
06:59 06:59 06:59
Intake Total 1940 / 1940 1380 / 1380 0 / 0
Output Total 2300 / 2300 3160 / 3160
Balance -360 / -360 -1780 / -1780 0 / 0
SaO2: 84
Nasal Cannula flow liters per minute: 2
Physical Exam
General: Respiratory Distress (n), Comfortable and Other (NAD)
HEENT: Normocephalic, Anicteric and Moist Mucous Membranes
Cardiovascular: Regular Rhythm
Respiratory: Crackles, Non-Labored Respirations and Chest Tube
GI: Soft, Non Distended and Non Tender
Neurology: Awake, Alert and No Motor Deficits
Skin: Warm, Good Color and Cyanosis (n)
Labs/Micro/Reports
Lab Data
12/10/24 04:53
12/10/24 04:53
[2024-12-10 15:10] VITALS: BP 100/49
[2024-12-10 18:06] LABS: Glucose - Point of Care 269 mg/dl (70-99)
[2024-12-10] MEDS: NOVOLOG FLEXPEN-HIGH RESISTANCE 7 UNITS SC (18:08)
[2024-12-10] MEDS: REQUIP 0.5 MG PO (21:28)
[2024-12-10] MEDS: MELATONIN 5 MG PO (21:36)
[2024-12-10 21:37] LABS: Glucose - Point of Care 219 mg/dl (70-99)
[2024-12-10] MEDS: LIPITOR 80 MG PO (21:42)
[2024-12-10 23:12] VITALS: BP 113/52
[2024-12-11] MEDS: DESYREL 12.5 MG PO (01:35)
[2024-12-11 06:00] VITALS: BMI 23.5
[2024-12-11 07:01] LABS: Glucose - Point of Care 172 mg/dl (70-99)
[2024-12-11 07:05] VITALS: BP 111/53
[2024-12-11] MEDS: DUONEB INH ×3 (07:25→11:27)
[2024-12-11] MEDS: SYMBICORT 80/4.5 MCG INHALER 2 PUFF INH ×2 (07:25→19:38)
[2024-12-11] MEDS: SPIRIVA RESPIMAT 2.5 MCG 2 PUFF INH (07:25)
[2024-12-11] MEDS: NOVOLOG FLEXPEN-HIGH RESISTANCE 2 UNITS SC (08:44)
[2024-12-11] MEDS: FEOSOL 325 MG PO ×2 (08:45→20:19)
[2024-12-11] MEDS: LASIX 40 MG PO ×2 (08:45→17:52)
[2024-12-11] MEDS: VITAMIN B1 100 MG PO (08:46)
[2024-12-11] MEDS: TOPROL XL 50 MG PO ×2 (08:46→20:19)
[2024-12-11] MEDS: FOLVITE 1 MG PO (08:46)
[2024-12-11] MEDS: PACERONE 200 MG PO (08:46)
[2024-12-11] MEDS: PROTONIX 40 MG PO (08:46)
[2024-12-11] MEDS: ELIQUIS 5 MG PO ×2 (08:47→20:19)
[2024-12-11] MEDS: MAGIC OR MIRACLE MOUTHWASH 5 ML PO ×4 (08:48→21:34)
[2024-12-11] MEDS: HYDROPHOR 1 APPLIC TOPICAL (08:49)
[2024-12-11 09:32] LABS: Hemoglobin 9.2 g/dL (13.0-18.0); Mean Corp Hgb Conc. 28.8 g/dL (33.0-37.0); Mean Corpuscular Hgb 27.9 pg (27.0-31.0); Mean Platelet Volume 9.3 fL (7.4-10.4); Platelet Count 845 10^3/uL (130-400); Red Cell Dist. Width 16.3 % (11.5-14.5); White Blood Cell Count 11.4 10^3/uL (4.8-10.8)
--- NOTE | 2024-12-11 09:59 | W.PN.PUL.V3 ---
Today's Communication / Plan
-
Wean oxygen
Increase activity
Chest tube with minimal drainage--30 mL / 24-hour
Discontinue chest tube-Dr. Vaughn spoke to interventional radiology on 12/10/2024
Assessment
-
74-year-old man with multiple medical problems. Advanced COPD. Chronic hypercapnic and hypoxemic respiratory failure. Coronary artery disease post bypass, peripheral vascular disease, ongoing smoking, alcohol abuse disorder. Recently discharged
11/30/24 from the hospital after being admitted with change in mental status, acute hypercapnic on chronic hypercapnic respiratory failure, right pleural effusion, heart failure. Apparently refusing to use BiPAP in the hospital. Readmitted 12/01/2024
with worsening shortness of breath, cough, leukocytosis. Persistent right pleural effusion.
Acute on chronic hypoxemic respiratory failure-cannot rule out pneumonia/other source including urine as he urinalysis is abnormal/acute on chronic heart failure with preserved ejection fraction.
Required noninvasive mechanical ventilation for increased work of breathing.
Abnormal UA: Possible UTI
Leukocytosis with a left shift
Chronic hypercapnic respiratory failure-appears compensated-likely due to advanced COPD
VBG 7.42/71/54 (12/02/2024)
Chronic right pleural effusions present since July
Right chest tube placement 12/02/2024: Over 1.5 L drained so far clear fluid
pH 7.51/white blood cells 480/93% mononuclear/glucose 170/total protein 3.1/LDH 176/ambulates 56/triglycerides under 30.
s/p 11/21/2024 thoracentesis 1900 cc of clear pleural fluid.
Present since July 2024 based on chest x-ray.
Possible heart failure component with preserved ejection fraction proBNP in the 5999's
Chronic macrocytic anemia
EGD/colonoscopy without a source of bleeding
Acute blood loss anemia status post 4 units of packed red blood cells and recent admission 11/2024
s/p EGD/colon 11/24: No significant mass was found. More likely multifactorial with chronic disease plus potentially small bowel angiectasias
EKG changes initially admitted as ST elevation myocardial infraction alert
s/p Cardiac catheterization 11/21/2024: Nonobstructive coronary artery disease. Elevated LVEDP at 19.
Conditions present prior admission:
Lung nodule 7.4 mm on CAT scan January 2024-due for repeat CT. Request given 11/16/2024.
Active tobacco smoker-ongoing
Advanced COPD due to tobacco use not in an acute exacerbation
Chronic hypoxemic respiratory failure 2-3 L of supplemental oxygen.
On Trelegy
Last seen by Dr. Mckeon 11/16/2024
PFT 2022 - 1.43L 46%
Paroxysmal A-fib/flutter on Eliquis
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
CAD s/p CABG
PAD with Hx of right femoral endarterectomy and femoral bypas.
DM type II (HbA1C: 7.5 on 08/19/2024)
Hepatic steatosis-mild ascites on ultrasound
History of hepatitis C
History of alcohol abuse-Patient states no longer using 12/02/2024
History of tobacco abuse patient states that no longer using 12/02/2024
Plan
Respiratory status stable
Continue supplemental oxygen-currently on 2 L-attempt to wean
Assess discharge supplemental oxygen needs
Incentive spirometry encouraged
Symbicort and Spiriva continued-uses Trelegy as an outpatient
Nebulizers as needed
Aspiration precautions
BiPAP as needed-was refusing
Thoracentesis 11/21/24--1900 mL
Status post right chest tube 12/02/2024 -- fluid showing protein criteria 0.57 (but he is maintained on diuretics as OP, which may indicate pseudoexudate)
Culture negative to date, cyto neg 11/21, cyto 12/04/24-negative for malignant cells
Monitor chest tube output--2.6 L on 12/03/2024, 550 mL 12/04/2024 and already 615 mL and 12/05/2024
Output last 24 hours 30mL
Follow chest x-ray-- 12/06 improving
Chest tube output-past 24 hours 165mL, prior 30mL-60 mL in the previous last 24 hours-and now 30 mL / 24 hours reviewed with nursing
Discontinue chest tube-contacted interventional radiology 12/10/2024-hopefully will be removed 12/11/2024
Patient has been told numerous times there is a good chance for pleural fluid reaccumulation, if increasing shortness of breath then chest x-ray and repeat thoracentesis-eventual consideration towards Pleurx if keeps coming back-this was again
reiterated 12/11/2024 with nursing present
Cultures reviewed--
Urine culture with E. coli
Pleural fluid no growth
Influenza negative
Blood cultures negative
Empiric antibiotics-on Zosyn-finite course (12/06/24 was day 5)
Continue to observe off antibiotics
Continue diuresis as tolerated-converted to oral diuretics
Monitor renal function, electrolytes, intake/output, lower extremity edema and weight
Replace electrolytes as needed
Unable to use Diamox due to sulfa allergy
Cardiology following-correspondence reviewed
Eliquis continues
On amiodarone [address] chest January 2024 showed no evidence for any pulmonary mass on the right.
He has a groundglass pulmonary nodule that needs to be followed.
He has a request for repeat CT chest given by Dr. Mckeon to him on 11/16/2024.
Stable CAT scan 12/01/2024.
Doubt malignant or infectious in etiology-pleural fluid culture negative.
Follow hemoglobin-no evidence for acute bleeding
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
polyps throughout with 3 of them removed and diverticulosis in the left colon
Transfuse as needed
Outpatient GI evaluation
DVT prophylaxis-on Eliquis
Nutrition
Early mobilization
Follow-up with Dr. Mckeon as previously scheduled after discharge.
Daughter Ariane has recently gotten involved with his father's care. Per nursing this admission patient was not sure about the DNR. This will need to be discussed with daughter.
Jazz- Updated sister via phone 12/06/24
Diagnostic Data
CXR 12/06/24- The tip of the right-sided chest tube is at the lateral right base and there has been near complete resolution of the pleural fluid collection at the right lung base in the interval since the prior study. There is no pneumothorax
Chest X-Ray: 12/03/24- Right pleural pigtail catheter is present. Slight interval decrease in size of right pleural effusion. No evidence for significant pneumothorax.
CT Scan:
CT chest 12/02/2024: Old right 4 through 11 rib fractures; Moderate to large right pleural effusion. Compressive atelectasis. No significant left pleural effusion. Small nodular opacity in the left upper lobe new compared to prior CAT scan.
Echo: 11/21/24- Normal left ventricular size and function. Mild concentric left ventricular hypertrophy. Left ventricular ejection fraction is 50% by visual assessment. There is basal inferior akinesis. Stage II diastolic dysfunction suggestive of
abnormal relaxation and increased filling pressures. Mitral valve opens normally. Thickened mitral valve leaflets. Mitral annular calcification. Trace mitral regurgitation is seen. Mildly dilated left atrium. Tricuspid valve opens normally. Mild
tricuspid regurgitation. Estimated pulmonary artery pressure of 44 mmHg. Assuming a right atrial pressure of 8 mmHg. Dilated right atrium. Enlarged right ventricular size. Right ventricular hypokinesis. Since echocardiogram May 2024, there is
no significant change.
PFT's:
Reports and relevant images were personally reviewed.
Subjective Data
-
Date of Service:
Date of Service: December 11, 2024
Chief Complaint: Pulmonary Follow Up and Dyspnea Follow Up
Subjective:
No complaints of increasing shortness of breath, chest pain or abdominal pain
Review of Systems
General: Other (Per HPI)
Objective Data
Data Reviewed
Vital Signs / I&O:
Vital Signs
Temp Pulse Resp BP Pulse Ox
97.7 F 63 16 111/53 98
12/11/24 07:05 12/11/24 08:46 12/11/24 07:29 12/11/24 08:46 12/11/24 07:29
Intake and Output
12/10/24 12/11/24 12/12/24
06:59 06:59 06:59
Intake Total 1380 / 1380 1570 / 1570
Output Total 3160 / 3160 2079 / 2079
Balance -1780 / -1780 -510 / -510
SaO2: 98
Nasal Cannula flow liters per minute: 2
Physical Exam
General: Respiratory Distress (n), Comfortable and Other (NAD)
HEENT: Normocephalic, Anicteric and Moist Mucous Membranes
Cardiovascular: Regular Rhythm
Respiratory: Crackles, Non-Labored Respirations and Chest Tube
GI: Soft, Non Distended and Non Tender
Neurology: Awake, Alert and No Motor Deficits
Skin: Warm, Good Color and Cyanosis (n)
Labs/Micro/Reports
Lab Data
12/11/24 09:05
[2024-12-11 10:02] LABS: ALT (SGPT) 26 U/L (0-50); AST (SGOT) 28 U/L (17-59); Albumin 2.8 g/dl (3.5-5.0); Alkaline Phosphatase 135 U/L (38-126); Blood Urea Nitrogen 19 mg/dl (9-20); Calcium 9.1 mg/dl (8.4-10.2); Carbon Dioxide 35 mmol/L (22-30); Chloride 91 mmol/L (98-107); Estimated Creatinine Clearance 95 ml/min; Glucose 286 mg/dl (70-99); Potassium 4.7 mmol/L (3.5-5.1); Sodium 132 mmol/L (135-145); Total Bilirubin 0.2 mg/dl (0.2-1.3); Total Protein 5.3 g/dl (6.3-8.2); eGFR > 60.00
--- NOTE | 2024-12-11 10:25 | PN.IRAD.UPD ---
Update Note - IRAD
- -
Right chest tube removed bedside in IRAD per . Site cleaned and dressed with an occlusive dressing.
[2024-12-11 12:24] LABS: Glucose - Point of Care 275 mg/dl (70-99)
[2024-12-11] MEDS: NOVOLOG FLEXPEN-HIGH RESISTANCE 7 UNITS SC (12:32)
--- NOTE | 2024-12-11 14:06 | W.PN.HOSP.TC ---
Today's Communication/Plan
-
d/c planning for snf rehab
Assessment / Plan
Assessment / Plan
#Acute on Chronic Hypoxemic and Hypercapnic Respiratory Failure, multifactorial in nature
- Respiratory failure likely multifactorial and secondary to CHF, pleural effusion +/- respiratory infection / bacterial pneumonia.
- Continue supportive care including O2 supplementation, NIPPV as tolerated, etc.
# Right Pleural Effusion, chronic since July, loculated - with chest tube in
-Moderate to large right pleural effusion.
-S/P IR chest tube placement- fluid appears transudative
-Pulmonary consultation appreciated
-IR placed chest tube 12/02- continue per Pulm recs
-Cultures negative
-CT tube removed today
# Acute on Chronic HFpEF
-On oral lasix 40mg BID at this point
-f/u weight/cr
-cardio signed off
# Leukocytosis likely from a Bronchitis / Pneumonia
- Patient with cough and worsened dyspnea.
- COVID and flu negative in the ED.
- IV abx with Zosyn - 5 day course completed
- Follow fever curve, leukocytosis and monitor for any new / focal symptoms.
#Thrombocytosis -most likely acute phase reactant
#Hypokalemia -monitor and replete
#Hyponatremia -possible ADH excess related.
#Ecoli UTI -finished abx course
# Severe COPD and MARIJA - not tolerating Bipap
# Anemia, Macrocytic anemia - possibly related to alcohol. 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
# ASCVD/Recent STEMI - Stable. Cath done during recent visit with non-obstructing coronary disease.
# Paroxysmal Atrial Fibrillation - on BB/amio/eliquis
# DM-II - Stable.
# Benign Hypertension
# Lung nodule 7.4 mm on CAT scan January 2024-due for repeat CT. Request given 11/16/2024.
# Old rib fractures
# Adrenal incidentaloma
DVT Prophylaxis: Eliquis
Code Status: DNR
Anticipated Discharge: Within 24 hours
Subjective/Interval History
-
Date of Service: December 11, 2024
no complains overnight
right chest tube has been removed
Objective Data
-
Labs:
Laboratory Results
12/11/24
09:05
WBC 11.4 H
Hgb 9.2 L
Hct 32.0 L
Plt Count 845 H
Sodium 132 L
Potassium 4.7
Chloride 91 L
Carbon Dioxide 35 H
BUN 19
Creatinine 0.7
Glucose 286 H
Calcium 9.1
Total Bilirubin 0.2
AST 28
ALT 26
Alkaline Phosphatase 135 H
Vital Signs:
Vital Signs
Temp Pulse Resp BP Pulse Ox
97.7 F 63 16 111/53 93
12/11/24 07:05 12/11/24 08:46 12/11/24 07:29 12/11/24 08:46 12/11/24 11:15
I&O
12/10/24 12/11/24 12/12/24
06:59 06:59 06:59
Intake Total 1380 / 1380 1570 / 1570
Output Total 3160 / 3160 2079 / 2079
Balance -1780 / -1780 -510 / -510
Review of Systems
-
Respiratory: Reports No Symptoms
Cardiac: Reports No Symptoms
Abdomen/GI: Reports No Symptoms
Physical Exam
-
General: No Apparent Distress and Appears Chronically Ill
HEENT: Oxygen (2L NC)
Respiratory: Rhonchi; Negative Chest Tubes
Cardiac: Regular Rhythm and S1/S2
GI: Soft, Nontender and Nondistended
Musculoskeletal: Edema, Right Lower Extrem and Edema, Left Lower Extrem
Neuro: Awake, Alert and No Motor Deficits
Psych: Calm and Depressed
[2024-12-11 15:38] VITALS: BP 107/46; PULSE 68; O2SAT 98
[2024-12-11 15:40] VITALS: BP 107/46
--- NOTE | 2024-12-11 15:55 | CM ---
Addendum entered by Rima Gramajo 12/11/24 16:00:
tt PT/OT for updated evals needed for auth
Will see patient today
Original Note:
Per Kelley at [facility], bed available tomorrow. tt hospitalist
[facility] ([place]) - NPI #:[id number]
Dr. Frantz Maradiaga NPI #: [id number]
Spoke with patient and agreeable, LM with daughter Patricia
Will start [employer] insurance authorization
IMM explained & signed. In chart
PLAN: [facility], [address], [place]
Report #: [phone]
Fax #: [phone]
transportation forms on chart
[2024-12-11 16:06] VITALS: BP 107/46; PULSE 68; O2SAT 97
--- NOTE | 2024-12-11 16:23 | CM ---
Insurance auth initiated for skilled rehab at [facility] ([facility]) via [employer]
Pended reference # [id number]
clinicals faxed to [phone]
Plan: skilled rehab once auth received.
[2024-12-11] MEDS: NOVOLOG FLEXPEN-HIGH RESISTANCE 4 UNITS SC (17:56)
[2024-12-11 18:01] LABS: Glucose - Point of Care 225 mg/dl (70-99)
[2024-12-11] MEDS: VENTOLIN NEBULES 2.5 MG INH (19:38)
--- NOTE | 2024-12-11 19:39 | PTCARENOTE ---
Chest tube removed; dsg saturated and changed x4.
[2024-12-11 21:28] LABS: Glucose - Point of Care 308 mg/dl (70-99)
[2024-12-11] MEDS: LIPITOR 80 MG PO (21:33)
[2024-12-11] MEDS: MELATONIN 5 MG PO (21:33)
[2024-12-11] MEDS: REQUIP 0.5 MG PO (21:33)
[2024-12-11] MEDS: NOVOLOG FLEXPEN 5 UNITS SC (21:55)
[2024-12-11 23:05] VITALS: BP 102/48
[2024-12-11 23:51] LABS: Glucose - Point of Care 230 mg/dl (70-99)
[2024-12-12 06:00] VITALS: BMI 23.4
[2024-12-12 07:00] VITALS: BP 103/55
[2024-12-12 07:04] LABS: Glucose - Point of Care 205 mg/dl (70-99)
[2024-12-12 07:13] LABS: Hematocrit 29.1 % (39.0-52.0); Hemoglobin 8.8 g/dL (13.0-18.0); Mean Corp Hgb Conc. 30.2 g/dL (33.0-37.0); Mean Corpuscular Hgb 28.8 pg (27.0-31.0); Mean Corpuscular Volume 95.1 fL (80.0-94.0); Mean Platelet Volume 9.4 fL (7.4-10.4); Platelet Count 783 10^3/uL (130-400); Red Blood Cell Count 3.06 10^6/uL (4.70-6.10); Red Cell Dist. Width 16.9 % (11.5-14.5); White Blood Cell Count 13.5 10^3/uL (4.8-10.8)
[2024-12-12] MEDS: SPIRIVA RESPIMAT 2.5 MCG 2 PUFF INH (07:27)
[2024-12-12] MEDS: SYMBICORT 80/4.5 MCG INHALER 2 PUFF INH (07:27)
[2024-12-12] MEDS: VENTOLIN NEBULES 2.5 MG INH (07:27)
[2024-12-12 07:48] LABS: ALT (SGPT) 27 U/L (0-50); AST (SGOT) 28 U/L (17-59); Albumin 2.7 g/dl (3.5-5.0); Alkaline Phosphatase 150 U/L (38-126); Blood Urea Nitrogen 18 mg/dl (9-20); Calcium 8.9 mg/dl (8.4-10.2); Carbon Dioxide 36 mmol/L (22-30); Chloride 92 mmol/L (98-107); Estimated Creatinine Clearance 83 ml/min; Glucose 192 mg/dl (70-99); Potassium 4.3 mmol/L (3.5-5.1); Sodium 133 mmol/L (135-145); Total Bilirubin 0.2 mg/dl (0.2-1.3); Total Protein 5.2 g/dl (6.3-8.2); eGFR > 60.00
[2024-12-12] MEDS: NOVOLOG FLEXPEN-HIGH RESISTANCE 4 UNITS SC (07:48)
[2024-12-12] MEDS: VITAMIN B1 100 MG PO (07:49)
[2024-12-12] MEDS: FEOSOL 325 MG PO (07:49)
[2024-12-12] MEDS: FOLVITE 1 MG PO (07:49)
[2024-12-12] MEDS: TOPROL XL 50 MG PO (07:49)
[2024-12-12] MEDS: PROTONIX 40 MG PO (07:49)
[2024-12-12] MEDS: ELIQUIS 5 MG PO (07:49)
[2024-12-12] MEDS: MAGIC OR MIRACLE MOUTHWASH 5 ML PO ×2 (07:50→12:44)
[2024-12-12] MEDS: PACERONE 200 MG PO (07:50)
[2024-12-12] MEDS: LASIX 40 MG PO (07:51)
[2024-12-12] MEDS: HYDROPHOR 1 APPLIC TOPICAL (07:52)
--- NOTE | 2024-12-12 08:55 | CM ---
Addendum entered by Rima Gramajo 12/12/24 11:52:
Per [employer] from transportation, patient does not qualify for ambulance will need to be w/c van.
Per daughter she is at work does not have credit card. Called [employer] and she stated they will bill the patient $145.
Daughter updated of this and is agreeable to cost.
5:30 transport set up via wheelchair van - daughter updated
Original Note:
Approved [employer] insurance authorization for [facility] ([facility]) [facility]
Cert #: [id number]
Start date 12/12/24 --- End Date 12/18/24
Fax updates to [phone]
Spoke to Kelley lerma and gave her auth approval information
tt hospitalist
PLAN: [facility], [address], [place]
Report #: [phone]
Fax #: [phone]
transportation forms on chart
--- NOTE | 2024-12-12 10:13 | W.PN.HOSP.TC ---
Today's Communication/Plan
-
d/c snf rehab
Assessment / Plan
Assessment / Plan
#Acute on Chronic Hypoxemic and Hypercapnic Respiratory Failure, multifactorial in nature
- Respiratory failure likely multifactorial and secondary to CHF, pleural effusion +/- respiratory infection / bacterial pneumonia.
- Continue supportive care including O2 supplementation, NIPPV as tolerated, etc.
# Right Pleural Effusion, chronic since July, loculated - with chest tube in
-Moderate to large right pleural effusion.
-S/P IR chest tube placement- fluid appears transudative
-Pulmonary consultation appreciated
-IR placed chest tube 12/02- continue per Pulm recs
-Cultures negative
-CT tube removed today
# Acute on Chronic HFpEF
-On oral lasix 40mg BID at this point
-f/u weight/cr
-cardio signed off
# Leukocytosis likely from a Bronchitis / Pneumonia
- Patient with cough and worsened dyspnea.
- COVID and flu negative in the ED.
- IV abx with Zosyn - 5 day course completed
- Follow fever curve, leukocytosis and monitor for any new / focal symptoms.
#Thrombocytosis -most likely acute phase reactant
#Hypokalemia -monitor and replete
#Hyponatremia -possible ADH excess related.
#Ecoli UTI -finished abx course
# Severe COPD and MARIJA - not tolerating Bipap
# Anemia, Macrocytic anemia - possibly related to alcohol. 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
# ASCVD/Recent STEMI - Stable. Cath done during recent visit with non-obstructing coronary disease.
# Paroxysmal Atrial Fibrillation - on BB/amio/eliquis
# DM-II - Stable.
# Benign Hypertension
# Lung nodule 7.4 mm on CAT scan January 2024-due for repeat CT. Request given 11/16/2024.
# Old rib fractures
# Adrenal incidentaloma
DVT Prophylaxis: Eliquis
Code Status: DNR
More than 30 minutes spent in discharge including
Final examination of the patient
Summarizing hospital stay
Instructions for continuing care to all relevant caregivers
Preparation of discharge records, prescriptions, and referral forms
Total time spent (in minutes): 39 mins
Anticipated Discharge: Today
Subjective/Interval History
-
Date of Service: December 12, 2024
no complains overnight
remains on o2 through NC
Objective Data
-
Labs:
Laboratory Results
12/12/24
05:58
WBC 13.5 H
Hgb 8.8 L
Hct 29.1 L
Plt Count 783 H
Sodium 133 L
Potassium 4.3
Chloride 92 L
Carbon Dioxide 36 H
BUN 18
Creatinine 0.8
Glucose 192 H
Calcium 8.9
Total Bilirubin 0.2
AST 28
ALT 27
Alkaline Phosphatase 150 H
Vital Signs:
Vital Signs
Temp Pulse Resp BP Pulse Ox
97.8 F 61 14 103/55 96
12/12/24 07:00 12/12/24 07:50 12/12/24 07:29 12/12/24 07:50 12/12/24 08:00
I&O
12/11/24 12/12/24 12/13/24
06:59 06:59 06:59
Intake Total 1570 / 1570 2100 / 2100
Output Total 2079 / 2079 1750 / 1750
Balance -510 / -510 350 / 350
Review of Systems
-
Respiratory: Reports No Symptoms
Cardiac: Reports No Symptoms
Abdomen/GI: Reports No Symptoms
Physical Exam
-
General: No Apparent Distress and Appears Chronically Ill
HEENT: Oxygen (2L NC)
Respiratory: Rhonchi; Negative Chest Tubes
Cardiac: Regular Rhythm and S1/S2
GI: Soft, Nontender and Nondistended
Musculoskeletal: Edema, Right Lower Extrem and Edema, Left Lower Extrem
Neuro: Awake, Alert and No Motor Deficits
Psych: Calm and Depressed
--- NOTE | 2024-12-12 10:39 | W.PN.PUL.V3 ---
Today's Communication / Plan
-
Wean oxygen.
Chest tube discontinued.
Physical therapy.
Eventual rehabilitation.
Pulmonary will sign off
Assessment
-
74-year-old man with multiple medical problems. Advanced COPD. Chronic hypercapnic and hypoxemic respiratory failure. Coronary artery disease post bypass, peripheral vascular disease, ongoing smoking, alcohol abuse disorder. Recently discharged
11/30/24 from the hospital after being admitted with change in mental status, acute hypercapnic on chronic hypercapnic respiratory failure, right pleural effusion, heart failure. Apparently refusing to use BiPAP in the hospital. Readmitted 12/01/2024
with worsening shortness of breath, cough, leukocytosis. Persistent right pleural effusion.
Acute on chronic hypoxemic respiratory failure-cannot rule out pneumonia/other source including urine as he urinalysis is abnormal/acute on chronic heart failure with preserved ejection fraction.
Required noninvasive mechanical ventilation for increased work of breathing.
Abnormal UA: Possible UTI
Leukocytosis with a left shift
Chronic hypercapnic respiratory failure-appears compensated-likely due to advanced COPD
VBG 7.42/71/54 (12/02/2024)
Chronic right pleural effusions present since July
Right chest tube placement 12/02/2024: Over 1.5 L drained so far clear fluid
pH 7.51/white blood cells 480/93% mononuclear/glucose 170/total protein 3.1/LDH 176/ambulates 56/triglycerides under 30.
s/p 11/21/2024 thoracentesis 1900 cc of clear pleural fluid.
Present since July 2024 based on chest x-ray.
Chest tube discontinued 12/12/24
Possible heart failure component with preserved ejection fraction proBNP in the 5999's
Chronic macrocytic anemia
EGD/colonoscopy without a source of bleeding
Acute blood loss anemia status post 4 units of packed red blood cells and recent admission 11/2024
s/p EGD/colon 11/24: No significant mass was found. More likely multifactorial with chronic disease plus potentially small bowel angiectasias
EKG changes initially admitted as ST elevation myocardial infraction alert
s/p Cardiac catheterization 11/21/2024: Nonobstructive coronary artery disease. Elevated LVEDP at 19.
Conditions present prior admission:
Lung nodule 7.4 mm on CAT scan January 2024-due for repeat CT. Request given 11/16/2024.
Active tobacco smoker-ongoing
Advanced COPD due to tobacco use not in an acute exacerbation
Chronic hypoxemic respiratory failure 2-3 L of supplemental oxygen.
On Trelegy
Last seen by Dr. Mckeon 11/16/2024
PFT 2022 - 1.43L 46%
Paroxysmal A-fib/flutter on Eliquis
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
CAD s/p CABG
PAD with Hx of right femoral endarterectomy and femoral bypas.
DM type II (HbA1C: 7.5 on 08/19/2024)
Hepatic steatosis-mild ascites on ultrasound
History of hepatitis C
History of alcohol abuse-Patient states no longer using 12/02/2024
History of tobacco abuse patient states that no longer using 12/02/2024
Plan
Respiratory status continues to be stable
Continue supplemental oxygen-currently on 2 L-attempt to wean . Room air
Assess discharge supplemental oxygen needs
Incentive spirometry encouraged
Symbicort and Spiriva continued-uses Trelegy as an outpatient
Nebulizers as needed
Aspiration precautions
BiPAP as needed-was refusing
Thoracentesis 11/21/24--1900 mL
Status post right chest tube 12/02/2024 -- fluid showing protein criteria 0.57 (but he is maintained on diuretics as OP, which may indicate pseudoexudate)
Culture negative to date, cyto neg 11/21, cyto 12/04/24-negative for malignant cells
Monitor chest tube output--2.6 L on 12/03/2024, 550 mL 12/04/2024 and already 615 mL and 12/05/2024
Output last 24 hours 30mL
Follow chest x-ray-- 12/06/24 improving.
Chest tube discontinued 12/11/24
Chest tube output-past 24 hours 165mL, prior 30mL-60 mL in the previous last 24 hours-and now 30 mL / 24 hours reviewed with nursing
Discontinue chest tube-contacted interventional radiology 12/10/2024-hopefully will be removed 12/11/2024
Patient has been told numerous times there is a good chance for pleural fluid reaccumulation, if increasing shortness of breath then chest x-ray and repeat thoracentesis-eventual consideration towards Pleurx if keeps coming back-this was again
reiterated 12/11/2024 with nursing present
Cultures reviewed--
Urine culture with E. coli
Pleural fluid no growth
Influenza negative
Blood cultures negative
Empiric antibiotics-on Zosyn-finite course (12/06/24 was day 5)
Continue to observe off antibiotics
Continue diuresis as tolerated-converted to oral diuretics
Monitor renal function, electrolytes, intake/output, lower extremity edema and weight
Replace electrolytes as needed
Unable to use Diamox due to sulfa allergy
Cardiology following-correspondence reviewed
Eliquis continues
On amiodarone [address] chest January 2024 showed no evidence for any pulmonary mass on the right.
He has a groundglass pulmonary nodule that needs to be followed.
He has a request for repeat CT chest given by Dr. Mckeon to him on 11/16/2024.
Stable CAT scan 12/01/2024.
Doubt malignant or infectious in etiology-pleural fluid culture negative.
Follow hemoglobin-no evidence for acute bleeding
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
polyps throughout with 3 of them removed and diverticulosis in the left colon
Transfuse as needed
Outpatient GI evaluation
DVT prophylaxis-on Eliquis
Nutrition
Early mobilization
Follow-up with Dr. Mckeon as previously scheduled after discharge.
Daughter Ariane has recently gotten involved with his father's care. Per nursing this admission patient was not sure about the DNR. This will need to be discussed with daughter.
Jazz- Updated sister via phone 12/06/24
Diagnostic Data
CXR 12/06/24- The tip of the right-sided chest tube is at the lateral right base and there has been near complete resolution of the pleural fluid collection at the right lung base in the interval since the prior study. There is no pneumothorax
Chest X-Ray: 12/03/24- Right pleural pigtail catheter is present. Slight interval decrease in size of right pleural effusion. No evidence for significant pneumothorax.
CT chest 12/02/2024: Old right 4 through 11 rib fractures; Moderate to large right pleural effusion. Compressive atelectasis. No significant left pleural effusion. Small nodular opacity in the left upper lobe new compared to prior CAT scan.
Echo: 11/21/24- Normal left ventricular size and function. Mild concentric left ventricular hypertrophy. Left ventricular ejection fraction is 50% by visual assessment. There is basal inferior akinesis. Stage II diastolic dysfunction suggestive of
abnormal relaxation and increased filling pressures. Mitral valve opens normally. Thickened mitral valve leaflets. Mitral annular calcification. Trace mitral regurgitation is seen. Mildly dilated left atrium. Tricuspid valve opens normally. Mild
tricuspid regurgitation. Estimated pulmonary artery pressure of 44 mmHg. Assuming a right atrial pressure of 8 mmHg. Dilated right atrium. Enlarged right ventricular size. Right ventricular hypokinesis. Since echocardiogram May 2024, there is
no significant change.
Subjective Data
-
Date of Service:
Date of Service: December 12, 2024
Chief Complaint: Pulmonary Follow Up and Dyspnea Follow Up
Subjective:
No complaints of worsening shortness of breath, chest pain or abdominal pain
Review of Systems
General: Other ( per HPI)
Objective Data
Data Reviewed
Vital Signs / I&O:
Vital Signs
Temp Pulse Resp BP Pulse Ox
97.8 F 61 14 103/55 96
12/12/24 07:00 12/12/24 07:50 12/12/24 07:29 12/12/24 07:50 12/12/24 08:00
Intake and Output
12/11/24 12/12/24 12/13/24
06:59 06:59 06:59
Intake Total 1570 / 1570 2099 / 2099
Output Total 2079 / 2079 175 / 175
Balance -510 / -510 350 / 350
SaO2: 96
Nasal Cannula flow liters per minute: 2
Physical Exam
General: Respiratory Distress (n), Comfortable and Other (NAD)
HEENT: Normocephalic, Anicteric and Moist Mucous Membranes
Cardiovascular: Regular Rhythm
Respiratory: Crackles, Non-Labored Respirations and Chest Tube
GI: Soft, Non Distended and Non Tender
Neurology: Awake, Alert and No Motor Deficits
Skin: Warm, Good Color and Cyanosis (n)
Labs/Micro/Reports
Lab Data
12/12/24 05:58
12/12/24 05:58
Microbiology
12/02/24 12:52 Pleural Fluid Fungal Smear - Final
No yeast or fungal elements seen.
12/02/24 12:52 Pleural Fluid Fungal Culture - Preliminary
Culture in progress.
Positive cultures are reported as soon as detected.
Final report to follow in four to five weeks.
[2024-12-12 11:30] LABS: Glucose - Point of Care 260 mg/dl (70-99)
[2024-12-12] MEDS: NOVOLOG FLEXPEN-HIGH RESISTANCE 7 UNITS SC (12:44)
--- NOTE | 2024-12-12 14:18 | W.DCSUMMARY ---
Discharge Summary
Discharge Data
Date of Admission: 12/02/24
Date of Discharge: 12/12/24
-
Pending Results: No
Hospital Course
Discharging Physician : Dr Vincent Tolbert
Disposition : To SNF
Primary care physician :
Principal Discharge diagnosis :
Acute on chronic hypoxic/hypercapnic respiratory
Right recurrent pleural effusion
Acute on chronic diastolic congestive heart failure
Community-acquired pneumonia
Escherichia coli urinary tract infection
Hypokalemia
Hyponatremia
Chronic Discharge diagnosis :
Old rib fracture
Chronic obstructive pulmonary disease
Obstructive sleep apnea
Chronic macrocytic anemia
Coronary disease
Recent ST segment elevation myocardial infarction
Paroxysmal atrial fibrillation
Type 2 diabetes
Essential hypertension
Lung nodule/scar tissue
Enlarged adrenal glands
Hospital Course :
Patient is a 74-year-old male with no mentioned past medical history came to ER with new onset of shortness of breath. Patient was apparently found to have decreased alertness as well and was brought in by family member.
Acute on chronic hypoxic/hypercapnic respiratory failure -on previous admission patient was found to having hypercapnic respiratory failure and had declined to use positive pressure therapy at home. Repeat blood gas this admission showing
worsening hypercapnia likely explaining patient somnolent/lethargic. Patient was started on NIPPV therapy and was admitted to ICU. Possible reason was felt to be related to heart failure exacerbation pleural effusion and pneumonia. Patient
discharge was continued to require oxygen through nasal cannula, patient advised to continue using PAP therapy at SNF.
Right pleural effusion -patient have chronic loculated right pleural effusion which was drained on previous admissions. Repeat CT chest showing similar findings this admission. Pulmonology recommended a chest tube placement, fluid studies
suggestive of this being transudative in nature.Cytopathology was negative. Later in the core chest tube was removed. Clinically there is high likelihood of pleural fluid reaccumulating with repeat thoracentesis would be warranted. Patient will
eventually require consideration of Pleurx tube.
Acute on chronic diastolic congestive heart failure -patient was started on IV diuretics and cardiology was following along. Post volume optimization at discharge patient was discharged on oral Lasix 40 mg twice daily.
Pneumonia/E. coli UTI -chest x-ray showing questionable changes of pneumonia as well. COVID/flu was negative. Patient urine culture was also growing E. coli. Patient finish 5 days of IV Zosyn therapy during the hospital stay.
Of note hospice was considered due to patient complexity and underlying heart failure although patient have declined this.
Important imaging findings :
None
Procedure findings :
None
Discharge Plan
-
Patient Disposition: [facility]iary[facility]SNF
Discharge Diagnosis/Procedures: Acute on chronic hypoxic/hypercapnic resp failure, Right pleural effusion, Diastolic HF exacerbation
Condition: Fair
Diet: 2 Gram Sodium and Diabetic, Carb Controlled
Activity: As tolerated
Driving Restrictions: No driving
Bathing Restrictions: OK to Shower
Activity Restrictions/Additional Instructions:
Wound Care Instructions
-L ear rim and L buttock: clean with soap and water, silicone foam change q 3 days and prn drainage.
L leg: clean with soap and water, adaptic, abd pad and ten daily
mineral oil to legs daily and to periwound
air chair cushion when sitting
leg elevation
smoking cessation
Follow up at wound care center call for an appointment.
Referrals:
Shadi Riggs MD [Active] - in four to six weeks
Irwin Posadas MD [Active] - in two to four weeks
Modesta Turner DO [Non-Admitting Privileges] - in one week
Additional Discharge Medication Instructions: Imdur/Lisinopril discontinued with low BP
Prescriptions:
New
furosemide 40 mg Tablet
40 mg PO BID AT 0800,1600 Qty: 60 0RF
metoprolol succinate 50 mg Tablet Extended Release 24 Hr
50 mg PO BID Qty: 60 0RF
Continued
Trelegy Ellipta 100-62.5-25 mcg Blister With Device
1 inh INHALATION R QPM
atorvastatin 80 mg Tablet
80 mg PO HS
folic acid 1 mg tablet
1 mg PO DAILY
Eliquis 5 mg Tablet
5 mg PO BID 30 Days Qty: 60 0RF
amiodarone 200 mg Tablet
200 mg PO DAILY 30 Days Qty: 30 0RF
thiamine HCl (vitamin B1) 100 mg Tablet
100 mg PO DAILY
ferrous sulfate 325 mg (65 mg iron) tablet
325 mg PO DAILY Qty: 30 0RF
ropinirole 0.5 mg tablet
0.5 mg PO HS Qty: 30 0RF
pantoprazole 40 mg Tablet,Delayed Release (Dr/Ec)
40 mg PO DAILY 30 Days Qty: 30 0RF
Januvia 100 mg Tablet
100 mg PO DAILY 30 Days Qty: 30 0RF
donepezil 5 mg Tablet
5 mg PO DAILY
metformin 500 mg tablet
500 mg PO BID
Discontinued
isosorbide mononitrate 60 mg Tablet Extended Release 24 Hr
60 mg PO DAILY
lisinopril 40 mg tablet
40 mg PO DAILY
dapagliflozin propanediol 10 mg Tablet
10 mg PO DAILY 30 Days Qty: 30 0RF
furosemide 80 mg tablet
80 mg PO BID@0800,1600
oxycodone-acetaminophen 5-325 mg Tablet
1 tab PO Q6H PRN (Reason: pain)
Discharge Orders:
Discharge Patient (As Directed); Ordered 12/12/24
Ordered By: Vincent Tolbert
Discharge Date and Time
Print Language: VENEZUELAN
[2024-12-12 15:05] VITALS: BP 115/60
[2024-12-12 17:01] LABS: Glucose - Point of Care 190 mg/dl (70-99)
[2024-12-12] MEDS: LASIX PO (17:09)
[2024-12-12] MEDS: NOVOLOG FLEXPEN-HIGH RESISTANCE SC (17:10)
== END 2024-12-12 17:44 | DRG 871 ==
LOC: 2 NORTH 02:14
PROVIDERS: Internal Medicine; Radiology Vascular & Interventional Radiology; Registered Nurse; ADMITTING PHYSICIAN Hospitalist; ATTENDING PHYSICIAN Hospitalist; CONSULT PHYSICIAN Internal Medicine Cardiovascular Disease; CONSULT PHYSICIAN Internal Medicine Critical Care Medicine; EMERGENCY PHYSICIAN Student in an Organized Health Care Education/Training Program
PROC: 0W9930Z Drainage of Right Pleural Cavity with Drainage Device, Percutaneous Approach (ICD-10-PCS; 2024-12-02)
DX: A41.51 Sepsis due to Escherichia coli [E. coli] (principal); I50.33 Acute on chronic diastolic (congestive) heart failure; L89.893 Pressure ulcer of other site, stage 3; J96.21 Acute and chronic respiratory failure with hypoxia; J96.22 Acute and chronic respiratory failure with hypercapnia; J18.9 Pneumonia, unspecified organism; Z66 Do not resuscitate; J91.8 Pleural effusion in other conditions classified elsewhere; N39.0 Urinary tract infection, site not specified; J44.0 Chronic obstructive pulmonary disease with (acute) lower respiratory infection; E87.1 Hypo-osmolality and hyponatremia; I5A Non-ischemic myocardial injury (non-traumatic); E78.00 Pure hypercholesterolemia, unspecified; I11.0 Hypertensive heart disease with heart failure; I48.0 Paroxysmal atrial fibrillation; G47.33 Obstructive sleep apnea (adult) (pediatric); F17.210 Nicotine dependence, cigarettes, uncomplicated; E11.51 Type 2 diabetes mellitus with diabetic peripheral angiopathy without gangrene; L89.322 Pressure ulcer of left buttock, stage 2; D53.9 Nutritional anemia, unspecified; B19.20 Unspecified viral hepatitis C without hepatic coma; E87.6 Hypokalemia; D75.838 Other thrombocytosis; I25.2 Old myocardial infarction; I25.10 Atherosclerotic heart disease of native coronary artery without angina pectoris; I25.5 Ischemic cardiomyopathy; K76.0 Fatty (change of) liver, not elsewhere classified; Z95.5 Presence of coronary angioplasty implant and graft; Z88.2 Allergy status to sulfonamides; Z79.01 Long term (current) use of anticoagulants; Z79.84 Long term (current) use of oral hypoglycemic drugs; Z11.52 Encounter for screening for COVID-19; Z95.1 Presence of aortocoronary bypass graft; Z86.73 Personal history of transient ischemic attack (TIA), and cerebral infarction without residual deficits; Z82.49 Family history of ischemic heart disease and other diseases of the circulatory system; Z79.899 Other long term (current) drug therapy
CPT/HCPCS: 32557; 71045; 71250; 80048; 80053; 81003; 81015; 82150; 82805; 82945; 82962; 83605; 83615; 83735; 83880; 83986; 84100; 84157; 84478; 84484; 85025; 85027; 85610; 85652; 85730; 86038; 86140; 87015; 87040; 87070; 87071; 87086; 87102; 87186; 87205; 87206; 87502; 87811; 88112; 89051; 93005; 94640; 94660; 96374; 96375; 97110; 97116; 97163; 97167; 97530; 97535; 99285; C1729; C1769

== ENCOUNTER 2025-09-26 16:31 | Inpatient (IN) | payer MEDICARE, SELFPAY ==
[2025-09-26 10:40] VITALS: BMI 25.6
[2025-09-26 10:42] VITALS: BP 129/85
--- NOTE | 2025-09-26 12:24 | ED.GENMED ---
History of Present Illness
General
Chief Complaint: Skin Problem
Source: patient
Exam Limitations: none
Time Seen by Provider: 09/26/25 11:10
Nursing documentation reviewed up to this point in time: agreed with
History of Present Illness
History of Present Illness:
74-year-old male with a past medical history of COPD, CHF, hypertension, hyperlipidemia, CAD status post CABG, peripheral vascular disease who presents to the emergency department for evaluation of leg pain and nonhealing wound. Patient reports
that for the past 4+ months he has had wound on the posterior left lower leg which he says is not healing and in fact has been getting worse. He says that over the past few weeks he has had increased redness and pain in the left leg which prompted
him to come to the ER for assessment. He denies any trauma or injury. He denies any other complaints. He says that he currently lives at home with his nephew but has difficulty getting to appointments and has not seen his doctor in quite some
time.
Past History
Past History
ED Past Medical History: COPD, HTN, Hypercholesterolemia, NIDDM, SD, Other (agre with documented pmhx and add: COPD.) and Other (TIA, diabetes mellitus type 2, hyperlipidemia, COPD, CAD, SD with CABG, hypertension, sleep apnea, hepatitis C)
ED Past Surgical History: Appendectomy, Cardiac (stents. Has had several stents. Last heart surgery 1997.), Orthopedic and Tonsilectomy
Social History
Tobacco: Smoker
Alcohol: Occasional
Drug: Marijuana
Personal:
Living: with family
Employment: Disabled
Family History
Family History: CAD
Review of Systems
Review of Systems
All Other Systems: ROS reviewed and negative except as documented in HPI and ROS
Constitutional: Denies fever
Respiratory: Denies trouble breathing
Cardiac: Denies chest pain
ABD/GI: Denies abdominal pain
: Denies flank pain
Musculoskeletal: Reports muscle pain; Denies neck pain or back pain
Skin: Reports other (Nonhealing wound)
Neurological: Denies headache
Phy Exam
Physical Exam
Physical Exam:
General: Awake, alert, oriented x3; no acute distress
Head: Normocephalic, atraumatic
Eyes: Conjunctiva normal, sclera anicteric
Throat: Airway intact, handling secretions
Neck: Trachea midline, supple without meningismus
Lungs: Breathing comfortably with no evidence of respiratory distress
Heart: Regular rate
Abd: Soft, non distended, nontender
Neuro: Cranial nerves grossly intact, speech fluid
Skin: no rash
Extremities: Patient has a large wound on the posterior aspect of the left lower leg approximately 6 x 8 cm roughly oval shaped with yellowish granulation tissue overlying but no purulent drainage; there is a large area of erythema surrounding the
wound and the area is tender to the touch; he has dry cracked skin's in both legs, distal extremities are warm to the touch but no palpable distal pulses (present by Doppler)
Scores
Heart Failure Risk
Heart Failure Risk Score: Not Applicable
Heart Score for Chest Pain Patients
STEMI patient?: Not applicable
Withdrawal Assessment of Alcohol
Withdrawal Assessment Completed?: Not applicable
Course
Orders/Labs/Results
Orders:
Orders
09/26/25 12:15
US Perip Venous LOWER Ext Ronen Urgent
Comment:
Reason For Exam: b/l leg pain, swelling
09/26/25 12:16
Lower Ext Arterial & KEREN US [US Periph Art LOWER Ext w KEREN] Urgent
Comment:
Reason For Exam: b/l leg pain, chronic wounds
09/26/25 13:34
Complete Blood Count/With Diff Urgent
Comprehensive Metabolic Panel Urgent
09/26/25 14:37
*Vancomycin 2,000 mg Loading Dose (consider for >/= 70 kg) Vancomycin [Vancocin] 2,000 mg 0.9% Sodium Chloride 500 ml [Nss] 500 ml IV NOW
Zosyn 3.375 grams IVPB NOW Piperacillin/Tazo 3.375 Gram [Zosyn] 3.375 gram in 50 ml IV NOW
Abnormal Lab Results
09/26/25
13:34
WBC 13.5 H 10^3/uL
(4.8-10.8)
MCV 99.8 H fL
(80.0-94.0)
MCH 32.0 H pg
(27.0-31.0)
MCHC 32.0 L g/dL
(33.0-37.0)
MPV 10.5 H fL
(7.4-10.4)
Abs Immat Gran (auto) 0.1 H 10^3/uL
(0-0.05)
Absolute Neuts (auto) 11.3 H 10^3/uL
(1.4-6.5)
Absolute Monos (auto) 0.7 H 10^3/uL
(0.1-0.6)
Neutrophils % 84.4 H %
(42.2-75.2)
Lymphocytes % 9.2 L %
(20.5-51.1)
Chloride 87 L mmol/L
(98-107)
BUN 24 H mg/dl
(9-20)
Glucose 125 H mg/dl
(70-99)
09/26/25 13:34
09/26/25 13:34
Vital Signs
Initial and Last Documented VS:
Initial Vital Signs
Temp Pulse Resp BP Pulse Ox
36.8 C 78 16 129/85 97
09/26/25 10:42 09/26/25 10:42 09/26/25 10:42 09/26/25 10:42 09/26/25 10:42
Last Documented Vital Signs
Temp Pulse Resp BP Pulse Ox
36.8 C 78 16 129/85 97
09/26/25 10:42 09/26/25 10:42 09/26/25 10:42 09/26/25 10:42 09/26/25 12:29
MDM/Problems Addressed
Differential Diagnosis Includes:
Wound infection, claudication/arterial insufficiency, DVT less like
MDM/Problems Addressed:
74-year-old male presents with increased pain in the left leg in the area of a chronic nonhealing wound. Vitals and exam are as above. Check basic labs, arterial and venous ultrasounds. Reassess after the above.
Labs reviewed: CBC shows leukocytosis to 13.5. Chemistry shows no clinically significant abnormalities. Venous ultrasound negative for DVT. Arterial ultrasound does show significant vascular disease left greater than right but appears relatively
stable compared to previous imaging in April. Overall suspect at least cellulitis with chronic wound. He clearly has poor outpatient follow-up he says he has not been able to make any appointments due to poor social support. Will treat with IV
antibiotics, admit for continued care. Discussed with hospitalist.
Chronic conditions affecting care:
Vascular disease
*Radiology
Radiology exam reviewed: radiology read reviewed
*Pulse Oximetry
SaO2: 97
Oxygen Mode of Delivery: Room air
Patient hypoxic: no (97%)
*Critical Care Note
Total Time (30-74mins, 75-104mins- exclusive of procedures): Not Applicable
Data Reviewed
Review of Other/Old Records Reveals: Labs, Records and Discharge Summary
Source: patient and records
Patient Management
Social determinants of health affecting care: Poor outpatient follow-up and Poor social support
Discussion with other providers: Hospitalist (Discussed with hospitalist)
Escalation/DeEscalation of care consider admission/obs:
Admission indicated
ED Attending Note
-
Portions of this chart may have been created with voice recognition software.� Occasional wrong word or��sound alike� substitutions may have occurred due to the inherent limitations of voice recognition software.
Discharge Plan
Departure
Patient Disposition: Admit
Date of Disposition: 09/26/25
Time of Disposition: 14:39
Admit to doctor: Moses
Presentation/result/management discussed w/ accepting MD/DO: Hospitalist
Discharge Problem:
Chronic wound, Cellulitis, PVD (peripheral vascular disease)
Prescriptions:
No Action
Trelegy Ellipta 100-62.5-25 mcg Blister With Device
1 inh INHALATION R QPM
atorvastatin 80 mg Tablet
80 mg PO HS
folic acid 1 mg tablet
1 mg PO DAILY
Eliquis 5 mg Tablet
5 mg PO BID 30 Days Qty: 60 0RF
amiodarone 200 mg Tablet
200 mg PO DAILY 30 Days Qty: 30 0RF
thiamine HCl (vitamin B1) 100 mg Tablet
100 mg PO DAILY
ferrous sulfate 325 mg (65 mg iron) tablet
325 mg PO DAILY Qty: 30 0RF
ropinirole 0.5 mg tablet
0.5 mg PO HS Qty: 30 0RF
pantoprazole 40 mg Tablet,Delayed Release (Dr/Ec)
40 mg PO DAILY 30 Days Qty: 30 0RF
Januvia 100 mg Tablet
100 mg PO DAILY 30 Days Qty: 30 0RF
donepezil 5 mg Tablet
5 mg PO DAILY
metformin 500 mg tablet
500 mg PO BID
furosemide 40 mg Tablet
40 mg PO BID AT 0800,1600 Qty: 60 0RF
metoprolol succinate 50 mg Tablet Extended Release 24 Hr
50 mg PO BID Qty: 60 0RF
Referrals:
Magno Ochoa MD [Family Provider, Family Practice]
Interventions
Interventions:
[facility] Risk Assessment Tool Last Done: 09/26/25 10:40
Discharge Date and Time
Print Language: HONDURAN
[2025-09-26 14:26] LABS: Hematocrit 48.7 % (39.0-52.0); Hemoglobin 15.6 g/dL (13.0-18.0); Mean Corp Hgb Conc. 32.0 g/dL (33.0-37.0); Mean Corpuscular Volume 99.8 fL (80.0-94.0); Nucleated Red Blood Cells % 0 % (-); Platelet Count 359 10^3/uL (130-400); Red Cell Dist. Width 13.9 % (11.5-14.5)
[2025-09-26 14:31] LABS: ALT (SGPT) 15 U/L (0-50); AST (SGOT) 21 U/L (17-59); Albumin 4.0 g/dl (3.5-5.0); Alkaline Phosphatase 112 U/L (38-126); Blood Urea Nitrogen 24 mg/dl (9-20); Calcium 9.5 mg/dl (8.4-10.2); Chloride 87 mmol/L (98-107); Estimated Creatinine Clearance 69 ml/min; Glucose 125 mg/dl (70-99); Potassium 3.7 mmol/L (3.5-5.1); Sodium 135 mmol/L (135-145); Total Protein 7.1 g/dl (6.3-8.2); eGFR > 60.00
[2025-09-26] MEDS: ZOSYN 50 IV ×2 (14:53→20:13)
[2025-09-26 15:00] LABS: Carbon Dioxide 44 mmol/L (22-30)
--- NOTE | 2025-09-26 15:11 | PHANOTE ---
med rec note- called patient family doctor at [phone], asked for them to fax meds list over, patient stated his medication were to long and complicated to remember. also stated his daughter comes out once a month fix his medication in a pill
pack
[2025-09-26] MEDS: VANCOCIN 540 MG IV (15:27)
--- NOTE | 2025-09-26 15:36 | HPS.HSE ---
Addendum entered and electronically signed by Brittni Lopes MD 09/26/25 16:39:
This is an addendum to H&P written by Rossy Almodovar on 09/26/2025. �Patient seen and examined independently with resident.
74-year-old male past medical history of peripheral arterial disease status right femoral endarterectomy, HFpEF, right pleural effusion status post chest tube, COPD on home oxygen unclear amount, obstructive sleep apnea, macrocytic anemia,
CAD/STEMI, paroxysmal atrial fibrillation, diabetes, hypertension, lung nodule, old rib fractures, adrenal incidentaloma, presenting with left lower extremity pain, redness and swelling for 1.5 months and nonhealing wound for 4 months. �
Also with ongoing shortness of breath, cough and wheezing despite using rescue inhaler.
Vital signs normal. �On examination he has erythema and swelling bilaterally but a crusted large wound foul-smelling of the left lower extremity. �Pulses intact. �Bilateral wheezing expiratory on examination.
Labs show leukocytosis 13.5.
Venous ultrasound shows no DVT. �Arterial ultrasound shows normal KEREN in the right lower extremity, KEREN of 0.67 on the left with moderate arterial insufficiency. �TBI 0.16 severely Doose but stable. �Severe left common femoral artery stenosis with
likely occlusion unchanged. �Superficial femoral artery and popliteal artery appear occluded as well.
Patient with left lower cellulitis with foul-smelling wound. �Also with concern for underlying chronic PAD of the left lower extremity without signs of acute ischemia. �Vancomycin/Zosyn. �Vascular surgery consulted.
Patient with also hypoxemia requiring 4 L oxygen which seems to be chronic but likely acute COPD exacerbation. �DuoNebs every 6 hours, dexamethasone.
Original Note:
Family Physician
-
Family Physician: Magno Ochoa
Chief Complaint
-
left leg pain
History of Present Illness
Patient is a 74y M with PMH significant for severe COPD, paroxysmal atrial fibrillation on Eliquis, ischemic cardiomyopathy s/p CABG and prior PCI, HfpEF who presents to ED complaining of left lower extremity swelling, nonhealing wound.. Patient
notes for the past 4 months of more he has had a wound on his posterior left lower extremity which has not healed and is getting worse. He notes over the past 1.5 months he has seen increased redness, pain, swelling in his left leg. He denies any
trauma, falls, fever, chills. Patient also notes of being short of breath, cough, wheezing for the past several weeks despite using his rescue inhaler every 4 hours more frequently. He is on home oxygen unclear how much. He currently lives at
home with his nephew in [place].
Medical History
Past Medical History
Past Medical History: Reports Other (severe COPD, paroxysmal atrial fibrillation on Eliquis, ischemic cardiomyopathy s/p CABG and prior PCI, HfpEF)
Past Surgical History: Reports Other (CABG PTCA with Stent R Femoral Endarterectomy / Bypass)
Social History
Tobacco: Smoker (Half a pack daily)
Alcohol: Occasional
Personal: Single
Living: With Family
Family History
Family History: Not pertinent
Allergies / Home Medications
Allergies reflects when Allergies were last updated in [facility].
Home Medications with original date entered in [facility]
Allergy/Medication List:
Allergies
Allergy/AdvReac Type Severity Reaction Status Date / Time
Sulfa (Sulfonamide Allergy hives,itchi Verified 09/26/25 10:44
Antibiotics) ng
Home Medications
fluticasone fur. 100 mcg-umeclid 62.5 mcg-vilant 25 mcg inhalat.powder (Trelegy Ellipta) 1 inh inhalation R QPM Lung/Breathing Issues 07/25/23
atorvastatin 80 mg tablet 80 mg PO HS High Cholesterol 07/26/23
folic acid 1 mg tablet 1 mg PO DAILY Supplement 07/16/24
amiodarone 200 mg tablet 200 mg PO DAILY Arrhythmia 30 days #30 tabs 07/24/24
apixaban 5 mg tablet (Eliquis) 5 mg PO BID Blood clot prevention/tx 30 days #60 tabs 07/24/24
thiamine HCl (vitamin B1) 100 mg tablet 100 mg PO DAILY Supplement 08/18/24
ferrous sulfate 325 mg (65 mg iron) tablet 325 mg PO DAILY #30 tabs 08/23/24
ropinirole 0.5 mg tablet 0.5 mg PO HS #30 tabs 08/23/24
pantoprazole 40 mg tablet,delayed release 40 mg PO DAILY Gastrointestinal issue 1 month #30 tabs 11/30/24
sitagliptin phosphate 100 mg tablet (Januvia) 100 mg PO DAILY Diabetes 1 month #30 tabs 11/30/24
donepezil 5 mg tablet 5 mg PO DAILY Neurological Condition 12/02/24
metformin 500 mg tablet 500 mg PO BID Diabetes 12/02/24
furosemide 40 mg tablet 40 mg PO BID AT 0800,1600 HF #60 tabs 12/12/24
metoprolol succinate 50 mg tablet,extended release 24 hr 50 mg PO BID Heart disease/condition #60 tabs 12/12/24
Review of Systems
-
History Source: Patient
Respiratory: Reports Cough, Trouble Breathing and Other (Wheezes)
Physical Exam
Vital Signs
Vital Signs
Temp Pulse Resp BP Pulse Ox
98.2 F 78 16 129/85 97
09/26/25 10:42 09/26/25 10:42 09/26/25 10:42 09/26/25 10:42 09/26/25 12:29
Physical Exam
General: Comfortable, Conversant and Other (On 4 L of oxygen)
HEENT: NormoCephalic and Anicteric
Respiratory: Wheezes and Decreased Breath Sounds
Cardiac: S1/S2 and Regular Rhythm
GI: Soft, Non Tender and Non Distended
Musculoskeletal: No Edema
Skin: Warm, Dry (very ) and Other (Erythema, swelling left lower extremity distall 1/3, with foul-smelling yellow crusted wound, no drainage. Mild erythema R LE. )
Neuro: AO x 3
Hematologic/Lymphatic: No Lymphadenopathy
Psych: Calm
Laboratory Results
-
09/26/25 13:34
09/26/25 13:34
Laboratory Results
Total Bilirubin 0.6 mg/dl (0.2-1.3) 09/26/25 13:34
AST 21 U/L (17-59) 09/26/25 13:34
ALT 15 U/L (0-50) 09/26/25 13:34
Alkaline Phosphatase 112 U/L (38-126) 09/26/25 13:34
Data Reviewed
-
Diagnostic Radiology: Report Reviewed by me and Discussed with Physician
Lab Data: Labs Reviewed by me and Discussed with Physician
Impression/Plan
-
IMPRESSION:
Left lower extremity cellulitis secondary to nonhealing wound
Hypoperfusion of left lower extremity in the setting of chronic PAD.
Acute on chronic hypoxemic respiratory insufficiency in the setting of advanced COPD
Paroxysmal atrial fibrillation
chronic HFpEF
Type 2 diabetes mellitus
Current smoker
Restless leg syndrome
Macrocytic anemia
PLAN:
Left lower extremity cellulitis secondary to nonhealing wound
Symptoms ongoing for about 1.5 months
Nonhealing wound for about 4 months
No drainage from the wound, yellow crusted foul-smelling left posterior leg
Admit to telemetry
Start IV Zosyn, IV vancomycin
Afebrile, leukocytosis 13,500
New decreased perfusion in left leg on arterial study-- would need
Vascular consult
Wound care
Hypoperfusion of left lower extremity in the setting of chronic PAD
Arterial study left LE showing new TBI 0.16, severely reduced, but stable compared to previous.
Consult vascular for further evaluation.
Continue high intensity statin
Continue Eliquis fo now, unless vascular recommends switching to heparin.
Acute on chronic hypoxemic respiratory insufficiency in the setting of advanced COPD
New onset wheezes, productive cough, SOB, needing more frequent rescue inhaler.
On home oxygen unclear how much
Currently her 4 L of oxygen. Goal 89-91 %. Wean as able
DuoNeb as needed, budesonide twice daily
Continue Trelegy.
Decadron IV every 12
Check chest x-ray
Check COVID and flu
Paroxysmal atrial fibrillation
Continue Eliquis and amiodarone
Type 2 diabetes mellitus
Hold metformin
Sliding scale
Chronic HFpEF
continue home dose Lasix 60 mg. No CP, palpitation
Previous echogram noted 11/2024-left ventricle ejection fraction 50%
Current smoker
Half pack daily
Start nicotine patch
Restless leg syndrome
Continue ropinirole
Macrocytic anemia
Drinks beer once a month. History of chronic alcohol use.
check B12/folate
Continue thiamine and folate
Full code
Eliquis
Diabetic diet
--- NOTE | 2025-09-26 16:29 | CON.VAS ---
Consultation
Consultation Request
Date/Time Consultation Performed: 09/26/2025 1615
Requesting Provider: Hospitalist
Performing Provider: Faith Madrigal NP-C for Cl Riley M.D.
Reason for Consultation: Left lower extremity wound
Medical History
-
Chief Complaint: Left lower extremity calf wound
History of Present Illness:
This is a 74-year-old male with significant past medical history for COPD, macrocytic anemia, coronary artery disease, IL, atrial fibrillation, diabetes, hypertension, TIA, hepatitis C, lung nodule, large adrenal gland, peripheral arterial disease,
and heart failure who presents to [facility] on 09/26/2025 with reports of worsening and nonhealing left lower extremity posterior calf wound. Patient is known to our service as he previously underwent right femoral
endarterectomy with femoral to PT artery bypass in July [address] Cl Riley M.D. Patient endorses that he has had a persistent left posterior calf wound for over roughly 4 months, which has progressed in discomfort, edema, and redness over
the past 1 to 2 weeks prompting ED evaluation. He denies claudication symptoms. Denies recent illness or trauma. Does endorse difficulty with medical compliance due to limitations in transportation and housing. Currently residing with his
nephew.
Vascular procedure history:
08/04/2023: Right femoral endarterectomy (common femoral artery, profunda femoris artery) with saphenous vein patch angioplasty and profundoplasty. Right femoral to posterior tibial artery bypass with ipsilateral non-reversed greater saphenous vein
conduit.
Past Medical History
Past Medical History: Other (COPD, macrocytic anemia, coronary artery disease, IL, atrial fibrillation, diabetes, hypertension, lung nodule, large adrenal gland, peripheral arterial disease, and heart failure)
Past Surgical History: Appendectomy, Cardiac (CABG, cardiac catheterization with PCI) and Tonsilectomy
Social History
Tobacco: Smoker
Alcohol: Occasional
Drug: Marijuana
Allergies / Home Medications
Allergy/AdvReac Type Severity Reaction Status Date / Time
Sulfa (Sulfonamide Allergy hives,itchi Verified 09/26/25 10:44
Antibiotics) ng
�Medication �Instructions �Recorded �Confirmed �Type
fluticasone fur. 100 mcg-umeclid 1 inh inhalation R QPM 07/25/23 09/26/25 History
62.5 mcg-vilant 25 mcg Lung/Breathing Issues
inhalat.powder (Trelegy Ellipta)
atorvastatin 80 mg tablet 80 mg PO HS High Cholesterol 07/26/23 09/26/25 History
folic acid 1 mg tablet 1 mg PO DAILY Supplement 07/16/24 09/26/25 History
amiodarone 200 mg tablet 200 mg PO DAILY Arrhythmia 30 days 07/24/24 09/26/25 Rx
#30 tabs
apixaban 5 mg tablet (Eliquis) 5 mg PO BID Blood clot 07/24/24 09/26/25 Rx
prevention/tx 30 days #60 tabs
thiamine HCl (vitamin B1) 100 mg 100 mg PO DAILY Supplement 08/18/24 09/26/25 History
tablet
ferrous sulfate 325 mg (65 mg 325 mg PO DAILY #30 tabs 08/23/24 09/26/25 Rx
iron) tablet
ropinirole 0.5 mg tablet 0.5 mg PO HS #30 tabs 08/23/24 09/26/25 Rx
pantoprazole 40 mg tablet,delayed 40 mg PO DAILY Gastrointestinal 11/30/24 09/26/25 Rx
release issue 1 month #30 tabs
metformin 500 mg tablet 500 mg PO BID Diabetes 12/02/24 09/26/25 History
metoprolol succinate 50 mg 50 mg PO BID Heart 12/12/24 09/26/25 Rx
tablet,extended release 24 hr disease/condition #60 tabs
furosemide 40 mg tablet 60 mg PO BID AT 0800,1600 HF 09/26/25 09/26/25 History
Review of Systems
-
History Source: Patient
Constitutional: Reports No Symptoms
EENT: Reports No Symptoms
Respiratory: Reports No Symptoms
Cardiac: Reports No Symptoms
Vascular: Denies Leg Pain / Claudication
Abdomen/GI: Reports No Symptoms
: Reports No Symptoms
Musculoskeletal: Reports Edema (Bilateral lower extremity swelling)
Skin: Reports Itching and Other (Bilateral calf dry skin, itchiness, and nonhealing wound at left calf posterior)
Neurological: Reports No Symptoms
Physical Exam
Vital Signs
Temp Pulse Resp BP Pulse Ox
98.2 F 78 16 129/85 97
09/26/25 10:42 09/26/25 10:42 09/26/25 10:42 09/26/25 10:42 09/26/25 12:29
Lab Results
09/26/25 13:34
09/26/25 13:34
Physical Exam
General: No Apparent Distress
HEENT: Normocephalic, Anicteric and Atraumatic
Respiratory: Non Labored Respirations
Cardiac: Negative JVD
GI: Soft, Non Tender and Non Distended
Musculoskeletal: Edema (Bilateral lower extremities with +1 edema)
Skin: Other (Bilateral calfs with erythema and dry cracking skin, left posterior calf with superficial ulceration and thickened skin)
Neuro: AO x 3
Pulses: Left Femoral: Doppler, Right Femoral: +2, Right Popliteal: +2 (Bilateral DP signal absent, left AT Doppler signal present) and Right Posterior Tibial: Doppler
Assessment / Plan
-
Assessment: 74-year-old male with significant history for bilateral peripheral arterial disease, presenting to ED complaining of continued nonhealing left posterior calf wound for over 4 months
Plan:
Given lack of palpable femoral pulse at left lower extremity and nonpalpable distal pulses high suspicion for inflow and outflow arterial disease, will obtain CTA aorta with runoff to fully evaluate extent of peripheral arterial disease and then
can provide surgical recommendations
Plan reviewed with attending Dr. Cl Riley M.D.
[2025-09-26 17:01] LABS: COVID-19 Antigen Negative (Negative)
[2025-09-26 17:54] VITALS: BP 163/75; BMI 24.8
[2025-09-26 18:06] VITALS: BMI 24.8
[2025-09-26 18:11] LABS: Glucose - Point of Care 165 mg/dl (70-99)
[2025-09-26] MEDS: NSS 1000 IV (18:26)
[2025-09-26] MEDS: NOVOLOG FLEXPEN-MODERATE RESISTANCE 1 UNITS SC (18:26)
[2025-09-26] MEDS: DECADRON 4 MG IV (18:27)
--- NOTE | 2025-09-26 19:07 | PTCARENOTE ---
pt new adm from ED via stretcher. pt is AAO*3, Vss, room air. pt forgetful at times. Bed alarm in. pt denies any pain at this time. pt oriented to the room. call liu within the reach.
[2025-09-26 19:18] VITALS: BP 152/68
[2025-09-26] MEDS: SYMBICORT 80/4.5 MCG INHALER 2 PUFF INH (19:19)
[2025-09-26] MEDS: PULMICORT 0.25 MG INH (19:19)
[2025-09-26] MEDS: DUONEB 3 ML INH (19:20)
[2025-09-26 19:52] LABS: Magnesium 1.3 mg/dl (1.6-2.3)
[2025-09-26] MEDS: TOPROL XL 50 MG PO (20:13)
[2025-09-26] MEDS: ELIQUIS 5 MG PO (20:13)
[2025-09-26] MEDS: LIPITOR 80 MG PO (20:13)
[2025-09-26] MEDS: REQUIP 0.5 MG PO (20:13)
[2025-09-26 20:48] LABS: Vitamin B12 469 pg/ml (239-931)
[2025-09-26 21:05] LABS: Folate > 20.0 ng/ml (2.76-20)
[2025-09-26 21:10] LABS: Glucose - Point of Care 172 mg/dl (70-99)
--- NOTE | 2025-09-26 22:20 | PHA.VAN.IN ---
Assessment
- Assessment
Renal Function: Appears similar to baseline
Concomitant Antimicrobials: PIPERACILLIN/TAZO
AUC Dosing Plan
- Dosing Variables
Dosing Weight (kg): 78.5
Dosing CrCl (ml/min): 69
Vd coefficient (L/kg): 0.7
- Empiric Dosing
Initial / Loading Dose: VANCOMYCIN 2000 MG IV ~ 1530
Maintenance Regimen: VANCOMYCIN 750 MG IV Q12H
Estimated AUC (mcg*h/mL): 456
Estimated Peak (mcg*h/mL): 26.1
Estimated Trough (mcg/ml): 13.2
Estimated Half Life (H): 11.2
- Monitoring
No levels ordered at this time: Please consider levels in next few days.
Pharmacokinetics Vancomycin I
- -
Patient Age: 74
Patient Sex: Male
Vancomycin Day #: 1
Indication: Skin And Soft Tissue
Requesting Provider: Dr Abdoul Blair (Resident)
Pertinent Antimicrobial Allergies:
Sulfa w. hives and itching.
Height / Weight:
Height 5 ft 10 in
Actual Weight 78.471 kg
Pertinent Past Medical History: IDDM w. left lower cellulitis with foul-smelling wound
- Vital Signs / Lab Results
Temp Pulse Resp BP Pulse Ox
98 F 60 16 152/68 98
09/26/25 19:18 09/26/25 19:24 09/26/25 19:24 09/26/25 19:18 09/26/25 19:24
Lab Results - Hematology
09/26/25
13:34
WBC 13.5 H
Lab Results - Chemistry
09/26/25
13:34
BUN 24 H
Creatinine 1.0
Estimated Creat Clear 69
Albumin 4.0
Microbiology Results
09/26/25 16:35 Influenza Types A & B (MAT) - Final
Nasal Swab Negative for Influenza A & B, NAAT
Negative results must be combined with clinical observations
and patient history.
Nucleic Acid Amplification test (NAAT)performed on the
[employer] NOW platform.
[2025-09-26 23:11] VITALS: BP 141/55
[2025-09-27] MEDS: ZOSYN 50 IV ×4 (02:09→19:34)
[2025-09-27 03:46] VITALS: BP 139/63
[2025-09-27] MEDS: NSS 1000 IV ×2 (04:58→17:01)
[2025-09-27] MEDS: DECADRON 4 MG IV ×2 (05:00→17:03)
[2025-09-27 06:00] VITALS: BMI 24.9
[2025-09-27] MEDS: VANCOCIN 150 IV ×2 (06:24→17:02)
[2025-09-27] MEDS: PULMICORT 0.25 MG INH ×2 (07:50→19:02)
[2025-09-27] MEDS: SYMBICORT 80/4.5 MCG INHALER 2 PUFF INH (07:51)
[2025-09-27] MEDS: SPIRIVA RESPIMAT 2.5 MCG 2 PUFF INH (07:51)
[2025-09-27 08:01] LABS: Glucose - Point of Care 168 mg/dl (70-99)
[2025-09-27] MEDS: NOVOLOG FLEXPEN-MODERATE RESISTANCE 1 UNITS SC (08:01)
[2025-09-27] MEDS: NICODERM TRANSDERMAL 21 MG TRANSDERM (08:01)
[2025-09-27] MEDS: PROTONIX 40 MG PO (08:01)
[2025-09-27] MEDS: VITAMIN B1 100 MG PO (08:01)
[2025-09-27] MEDS: FOLVITE 1 MG PO (08:01)
[2025-09-27] MEDS: PACERONE 200 MG PO (08:01)
[2025-09-27] MEDS: ELIQUIS 5 MG PO ×2 (08:02→19:34)
[2025-09-27] MEDS: FEOSOL 325 MG PO (08:03)
[2025-09-27] MEDS: TOPROL XL 50 MG PO ×2 (08:03→19:34)
[2025-09-27 08:28] LABS: Hematocrit 46.7 % (39.0-52.0); Hemoglobin 14.9 g/dL (13.0-18.0); Mean Corp Hgb Conc. 31.9 g/dL (33.0-37.0); Mean Corpuscular Volume 101.7 fL (80.0-94.0); Nucleated Red Blood Cells % 0 % (-); Platelet Count 340 10^3/uL (130-400); Red Cell Dist. Width 13.8 % (11.5-14.5)
[2025-09-27 08:30] VITALS: BP 154/67
--- NOTE | 2025-09-27 08:42 | W.PN.HOSP.TC ---
Today's Communication/Plan
-
Wound care per
Antibiotics per
Vascular evaluation.
Systemic steroid taper.
Oxygen supplementation per
Monitor volume status closely.
Procedure BNP pending
Currently on oral Lasix
Assessment / Plan
Assessment / Plan
Impression
Presentation with worsening of left lower extremity pain and nonhealing wound.
Chronic limb threatening ischemia left lower extremity with nonhealing wound and mild cellulitis.
Mild COPD exacerbation (reports subjective dyspnea while on home O2, bronchospasm on exam)
Conditions prior to admission
PAD.
� Status post right femoral enterectomy with saphenous vein angioplasty and right femoral to popliteal bypass 08/16
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
COPD
History of recurrent right-sided pleural effusion requiring thoracentesis on multiple occasions. Path negative for malignancy
Pulmonary nodule under surveillance.
CAD.
� Status post remote CABG at [facility] with SHEEHAN to LAD
� PCI with unclear details at [facility]
�Out of the hospital STEMI alert 11/18 with no evidence of culprit lesion
Chronic CHF preserved EF
Paroxysmal atrial fibrillation/flutter
Chronic anticoagulation with Eliquis.
History of gastrointestinal bleed: EGD/colonoscopy 11/18 with angioectasia requiring APC and colon polyps
Chronic macrocytic anemia
Hypertension
Diabetes type 2
Hepatitis C treated and cleared infection
Ongoing tobacco use disorder
Imaging
Chest x-ray: No acute cardiopulmonary process
Arterial ultrasound:
1. Right lower extremity: KEREN 1.16, within normal limits. TBI mildly reduced 0.63, improved from prior study (0.53). Multiphasic common femoral and profunda waveforms. Femoral to posterior tibial artery bypass is patent with mild distal anastomotic
velocity elevation 158 cm/s (velocity ratio 2.43), possibly consistent with greater than 50% stenosis. Not significantly changed from prior study. Continuous Doppler waveforms at the posterior tibial artery are multiphasic, at the dorsalis pedis are
monophasic.
2. Left lower extremity: KEREN 0.67. Consistent with moderate arterial deficiency. However, on the prior study KEREN was not obtainable/measurable due to medial calcinosis/noncompressibility of the vessels. Therefore this value may be false. TBI is
0.16, severely reduced, but relatively stable compared to prior study (0.12). Severe left common femoral artery stenosis with likely occlusion, likely unchanged. Superficial femoral artery and popliteal artery appear occluded as well. Continuous
Doppler waveforms the dorsalis pedis and posterior tibial arteries are monophasic.
Abdominal CTA
1. Right leg: Patent right femoral to posterior tibial artery bypass graft redemonstrated.
2. Left leg: Patent stent in the left common femoral artery/profunda femoris. Superficial femoral artery is completely occluded throughout the proximal to mid segments with partial distal reconstitution, worsened compared to prior. The popliteal
artery shows complete occlusion, progressed in extent from prior. Occluded common tibioperoneal trunk, progressed. Below this, there is reconstitution with three-vessel proximal run off with scattered mild to moderate disease.
3. Mild soft tissue/skin irregularity along the posterior left lower extremity/lower calf region with underlying subcutaneous edema, suggesting cellulitis. No overt fluid collections identified.
Echocardiogram 11/18:
Normal left ventricular size and function. Mild concentric left ventricular
hypertrophy. Left ventricular ejection fraction is 50% by visual assessment.
There is basal inferior akinesis. Stage II diastolic dysfunction suggestive of
abnormal relaxation and increased filling pressures.
Mitral valve opens normally. Thickened mitral valve leaflets. Mitral annular
calcification. Trace mitral regurgitation is seen.
Mildly dilated left atrium.
Tricuspid valve opens normally. Mild tricuspid regurgitation. Estimated
pulmonary artery pressure of 44 mmHg. Assuming a right atrial pressure of 8
mmHg.
Dilated right atrium.
Enlarged right ventricular size. Right ventricular hypokinesis.
Since echocardiogram May 2024, there is no significant change.
Plan
PAD with chronic limb threatening extremely the left lower extremity and nonhealing wound with cellulitis.
Imaging as above.
Initiated on empiric antibiotics with vancomycin and Zosyn.
Wound care.
Vascular surgery evaluation for left lower extremity femoropopliteal bypass tentatively on 10/01
He has been on anticoagulation with Eliquis [employer] for paroxysmal A-fib/flutter
Previously on Plavix
Continue statin
Will require pulmonary and cardiovascular clearance prior to intervention.
Chronic hypoxic respiratory failure on home O2
COPD
Mild exacerbation
Noted to be bronchospastic on exam with productive cough.
Chest x-ray with no acute cardiopulmonary disease.
Initiated on dexamethasone 4 mg IV every 12 hours. Continue taper for
Continue inhaled corticosteroids and bronchodilators.
Ongoing tobacco use. Counseled about quitting. Provide nicotine patch.
CAD.
Chronic CHF preserved EF.
Paroxysmal atrial fibrillation/flutter.
Weight noted to be up at 78 kg (71 likely dry weight)
No evidence for pulmonary or peripheral edema
Oxygen requirements close to baseline
Check pro CHF BNP.
Continue preadmission diuretic regimen Lasix 60 mg p.o. twice daily
Continue metoprolol, amiodarone, Lipitor.
Continue anticoagulation with Eliquis.
Type 2 diabetes
Update hemoglobin A1c
Hold metformin acutely
Insulin basal bolus protocol with serial Accu-Cheks. Expected hyperglycemia given systemic steroid therapy
Chronic macrocytic anemia. Hemoglobin at the baseline.
History of gastrointestinal hemorrhage.
Monitor hemoglobin while on Eliquis
Continue PPI prophylaxis.
Full code
DVT prophylaxis Eliquis
Anticipated Discharge: > 48 hours
Subjective/Interval History
-
Date of Service: September 27, 2025
Objective Data
-
Labs:
Laboratory Results
09/27/25
07:10
WBC 10.1
Hgb 14.9
Hct 46.7
Plt Count 340
Sodium Pending
Potassium Pending
Chloride Pending
Carbon Dioxide Pending
BUN Pending
Creatinine Pending
Glucose Pending
Calcium Pending
Vital Signs:
Vital Signs
Temp Pulse Resp BP Pulse Ox
97.9 F 60 18 154/67 97
09/27/25 08:30 09/27/25 08:30 09/27/25 08:30 09/27/25 08:30 09/27/25 08:30
I&O
09/26/25 09/27/25 09/28/25
06:59 06:59 06:59
Intake Total 1780 / 1780
Output Total 825 / 825
Balance 955 / 955
Physical Exam
-
General: Well Developed and No Apparent Distress
HEENT: Normocephalic, Atraumatic and Moist Mucous Membranes
Respiratory: Rhonchi; Negative Wheezes
Cardiac: Regular Rhythm and S1/S2; Negative Murmur, Rub or Gallop
GI: Soft, Nontender, Nondistended and Normal Bowel Sounds; Negative Organomegaly
Rectal: Deferred by Provider
Musculoskeletal: No Clubbing, No Cyanosis and Other (Not palpable dorsal pedis and posterior tibial pulses. Left calf wound with dry eschar)
Skin: Negative Rash
Neuro: Nonfocal/Grossly Intact
[2025-09-27 08:50] LABS: Blood Urea Nitrogen 16 mg/dl (9-20); Calcium 9.4 mg/dl (8.4-10.2); Chloride 89 mmol/L (98-107); Estimated Creatinine Clearance 69 ml/min; Glucose 167 mg/dl (70-99); Potassium 4.0 mmol/L (3.5-5.1); Sodium 137 mmol/L (135-145); eGFR > 60.00
[2025-09-27] MEDS: LASIX 60 MG PO ×2 (09:20→15:43)
[2025-09-27 09:27] LABS: Glycohemoglobin (HgbA1c) 6.7 % (4.0-5.9)
--- NOTE | 2025-09-27 10:09 | CON.CAR ---
Addendum entered and electronically signed by Heriberto Olivarez MD 09/27/25 14:50:
74-year-old man admitted with left popliteal artery occlusion and persistent left posterior calf wound. With ischemic changes and nonpalpable distal pulses scheduled for revascularization for limb salvage. Asked to perform preoperative evaluation.
PMH/PSH: right femoral endarterectomy with patch angioplasty and femoral to posterior tibial bypass July 2023, left common femoral stents, left SFA occlusion, left popliteal occlusion, chronic respiratory failure, HFpEF, COPD, history of right
pleural effusion, status post chest tube, currently without recurrent effusion, remote CABG, SHEEHAN to LAD, history of PCI details unknown, non-ST segment elevation DE without culprit October 2024, history of GI bleeding, angioectasias with argon
photocoagulation, remote CVA 2010, paroxysmal A-fib a flutter on amiodarone, noncompliance, hypertension, hyperlipidemia, type 2 diabetes, history of hep C successfully cured, tobacco abuse, history of bedbugs, HFpEF
Current medications: dexamethasone 4 mg q.12, Pulmicort, Zosyn, apixaban 5 mg twice daily, amiodarone 200 mg a day, atorvastatin 80 mg HS, iron sulfate, folate, furosemide 60 mg BID, metoprolol ER 50 mg BID, pantoprazole, Requip, thiamine, nicotine
patch, vancomycin, DuoNebs
Rest of history as below. Reviewed in detail and agree unless otherwise specified
117/51, pulse 65, respiratory rate 18, afebrile somewhat ill kempt but pleasant, offers no complaints and seems comfortable, head neck exam unremarkable, coarse breath sounds but no rales, JVD okay, regular rate and rhythm without obvious murmurs or
gallops, chronic changes both lower extremity with 1+ edema. Chronic wound on posterior aspect of distal left lower extremity, probably 12 x 15 cm, distal pulses not palpable.
Hemoglobin 14.9, MCV 101.7, potassium 4, BUN/creatinine 16 and 1.0, proBNP is 5550 hep C pending, SARS COVID-19 negative
ECG: sinus rhythm, prolonged QT, poor R wave progression, inferior DE
Echocardiogram: mild LVH, basal inferior, basal inferolateral and apical septal hypokinesis, EF 50-55%, MAC, normal left atrium no MR, aortic sclerosis, mild RV hypokinesis, normal right heart, could not determine pulmonary artery pressure
Cardiac catheterization October 2024: luminal irregs of left main, occluded LAD after large septal sports management internship, occlusion within stents, patent SHEEHAN to LAD, 50% stenosis to, proximal to distal overlapping stents with mild in-stent restenosis,
haziness in distal vessel with DIMITRI-3 flow, no vein graft identified
Impression:
Occluded left SFA with limb threatening ischemia and chronic left lower extremity wound
History of HFpEF, currently compensated
CAD status post SHEEHAN to LAD
History of PCI
Non-ST segment elevation DE in October 2024
Plan:
From a cardiac standpoint, he appears relatively stable and can proceed as planned with left lower extremity revascularization at elevated but acceptable cardiac risk.
His proBNP is elevated but there is no overt evidence of heart failure on exam. No pleural effusion on recent chest x-ray.
Currently he is in sinus rhythm on amiodarone. QT interval seems long but is acceptable, not surprising that he is amiodarone.
Regarding medications, addition of SGLT2 antagonist should be considered. Spironolactone may also be of value. Will add a low-dose preoperatively.
His echocardiogram from earlier today is satisfactory.
Okay to hold Eliquis 48 hours prior to surgery
We will continue to follow.
Original Note:
Consultation
Consultation Request
Date/Time Consultation Requested: 09/27/2025 at 0742
Date/Time Consultation Performed: 09/27/2025 at 1004
Requesting Provider: Dr. Riley
Performing Provider: Dr. MATT Olivarez
Reason for Consultation: Preoperative cardiovascular risk stratification, PAD, CAD
Medical History
-
History of Present Illness:
Patient came to the ER yesterday with increasing pain of LLE wound and was admitted with possible limb ischemia and cardiology is now consulted for preoperative cardiovascular risk stratification. Patient has known PAD with previous right sided
peripheral bypass in 2022. 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 Patient lives with his nephew and misses most if not all of his outpatient appointments, but says he is compliant with medications. Patient has not been seen by vascular
surgery in the office for almost a year and reports his wound has been present for months. There is malodor upon walking into the room and a left distal calf wound on examination. Vascular surgery note reviewed by me and they are recommending
peripheral bypass. Patient reports despite LLE wound he is still active in the home and has a bedroom on the second floor causing him to go up and down the stairs on a daily basis and he denies any chest pain or SOB with this. Patient is also
independent with all ADLs and ambulates without an assistive device and denies any chest pain or SOB with ambulation. Patient has known CAD with previous CABG at [place] and then had a PCI at [facility] at a later date and the details have never been
discovered. Most recently on 11/21/2024 the patient was an [id number] STEMI alert, but when taken to the Medicaid Analyst no culprit lesion could be identified. Patient then noted to have evidence of GI bleed and was treated with APC and polypectomy.
Patient did not follow-up in the cardiology office. Patient also has known paroxysmal A-fib, but is generally in SR with amiodarone 200 mg daily. Patient also takes Eliquis 5 mg BID and says he is compliant with this.
PMH:
PAD
s/p right femoral endarterectomy with saphenous vein angioplasty and right femoral to PT bypass 07/1123
Left HOT METAL CRANE OPERATOR stent patent, left FA occlusion, left popliteal artery occlusion 09/27/2025
Chronic Hypoxemic and Hypercapnic Respiratory Failure
Chronic HFpEF
COPD
h/o right pleural effusion/status post chest tube
s/p right sided thora for 1.9 L 11/21/24 and eventual right chest tube placement to 825 resulting in successful drainage of previously loculated effusion
No evidence of recurrent pleural effusion on CXR 09/26/2025
CAD
s/p remote CABG at [facility] with SHEEHAN to LAD
PCI with unclear details at [place]
Out of hospital STEMI alert 11/21/2024, no evidence of culprit lesion by cardiac cath to explain patient's presentation
h/o GI bleed/macrocytic anemia
s/p EGD/colon 11/24/24 with 1 angioectasia status post APC, and 3 colon polyp status post removal but no clear etiology of acute anemia
History of CVA 2010
Paroxysmal atrial fibrillation/flutter
Chronic Eliquis OAC
Chronic amiodarone therapy
Poor medical compliance
HTN
HLD
DM2
Hep C, treated and cleared infection
Ongoing tobacco use
h/o bedbugs 05/2024 admission
Past Medical History
Past Medical History: Other (in HPI)
Past Surgical History: Cardiac (CABG at [place], PCI at [facility], PAD surgery at [facility])
Social History
Tobacco: Smoker
Alcohol: Other (Patient has a history of severe alcohol use disorder, but currently says he is only drinking 2-4 times a month)
Drug: None
Personal: Single
Living: With Family (He and his nephew share home)
Family History
Family History: CAD (Father of an DE at age 49)
Allergies / Home Medications
Allergy/AdvReac Type Severity Reaction Status Date / Time
Sulfa (Sulfonamide Allergy hives,itchi Verified 09/26/25 10:44
Antibiotics) ng
�Medication �Instructions �Recorded �Confirmed �Type
fluticasone fur. 100 mcg-umeclid 1 inh inhalation R QPM 07/25/23 09/26/25 History
62.5 mcg-vilant 25 mcg Lung/Breathing Issues
inhalat.powder (Trelegy Ellipta)
atorvastatin 80 mg tablet 80 mg PO HS High Cholesterol 07/26/23 09/26/25 History
folic acid 1 mg tablet 1 mg PO DAILY Supplement 07/16/24 09/26/25 History
amiodarone 200 mg tablet 200 mg PO DAILY Arrhythmia 30 days 07/24/24 09/26/25 Rx
#30 tabs
apixaban 5 mg tablet (Eliquis) 5 mg PO BID Blood clot 07/24/24 09/26/25 Rx
prevention/tx 30 days #60 tabs
thiamine HCl (vitamin B1) 100 mg 100 mg PO DAILY Supplement 08/18/24 09/26/25 History
tablet
ferrous sulfate 325 mg (65 mg 325 mg PO DAILY #30 tabs 08/23/24 09/26/25 Rx
iron) tablet
ropinirole 0.5 mg tablet 0.5 mg PO HS #30 tabs 08/23/24 09/26/25 Rx
pantoprazole 40 mg tablet,delayed 40 mg PO DAILY Gastrointestinal 11/30/24 09/26/25 Rx
release issue 1 month #30 tabs
metformin 500 mg tablet 500 mg PO BID Diabetes 12/02/24 09/26/25 History
metoprolol succinate 50 mg 50 mg PO BID Heart 12/12/24 09/26/25 Rx
tablet,extended release 24 hr disease/condition #60 tabs
furosemide 40 mg tablet 60 mg PO BID AT 0800,1600 HF 09/26/25 09/26/25 History
Review of Systems
-
History Source: Patient
All other systems: Negative unless noted
Physical Exam
Vital Signs
Temp Pulse Resp BP Pulse Ox
97.9 F 60 18 154/67 97
09/27/25 08:30 09/27/25 08:30 09/27/25 08:30 09/27/25 08:30 09/27/25 08:30
GEN: NAD, AO x 3
HEENT: EOMI, MMM, rhinophyma
LUNGS: 2 L NC. Clear anterolaterally, no wheeze
CV: SR on tele. Regular, no murmur
ABD: ND
EXT: Trace to +1 B/L LE edema. 3 inch lesion left calf with malodor
NEURO: Gross non-focal
SKIN: No rash
Lab Results
09/27/25 07:10
09/27/25 07:10
Wnc-H-Vachazrgjai Pept 5550 pg/ml 09/27/25 07:10
Impression / Plan
-
Dr. Modesta Pretty
Assistant [employer] Manager: Dr Riggs
Impression:
Admitted with LLE wound and pain 09/26/2025
Presumably ischemic left posterior distal calf wound
PAD
s/p right femoral endarterectomy with saphenous vein angioplasty and right femoral to PT bypass 07/1123
Left HOT METAL CRANE OPERATOR stent patent, left FA occlusion, left popliteal artery occlusion 09/27/2025
Chronic Hypoxemic and Hypercapnic Respiratory Failure
Chronic HFpEF
COPD
h/o right pleural effusion/status post chest tube
s/p right sided thora for 1.9 L 11/21/24 and eventual right chest tube placement to 825 resulting in successful drainage of previously loculated effusion
No evidence of recurrent pleural effusion on CXR 09/26/2025
CAD
s/p remote CABG at [facility] with SHEEHAN to LAD
PCI with unclear details at [place]
Out of hospital STEMI alert 11/21/2024, no evidence of culprit lesion by cardiac cath to explain patient's presentation
h/o GI bleed/macrocytic anemia
s/p EGD/colon 11/24/24 with 1 angioectasia status post APC, and 3 colon polyp status post removal but no clear etiology of acute anemia
History of CVA 2010
Paroxysmal atrial fibrillation/flutter
Chronic Eliquis OAC
Chronic amiodarone therapy
Poor medical compliance
HTN
HLD
DM2
Hep C, treated and cleared infection
Ongoing tobacco use
h/o bedbugs 05/2024 admission
Dobutamine nuclear stress test 07/29/23 finds large inferior and basal inferior septal infarct without stephanie-infarct ischemia. Baseline LVEF 43%
Echo 07/28/23 finds normal LV size and function with LVEF in the low normal range estimated at 51% with basal to mid inferior wall severe hypokinesis. No significant valvular disease.
Echo 06/12/24: EF 50%, basal inferior wall hypokinetic on parasternal short axis views, RV mildly dilated, mildly dilated RA, no significant valvular disease noted
Echo 11/13/24: EF 50%, stage II diastolic dysfunction, trace MR, mild TR with PAP 44 mmHg no
Echo 11/21/24: Ejection fraction 50%, basal inferior akinesis, mild TR, PA systolic 44 mmHg, enlarged right ventricle with right ventricular hypokinesis
Echo 09/27/2025: EF 50 to 55%, no MR, aortic sclerosis without stenosis, mild RV hypokinesis
Plan:
- Patient came to the ER yesterday with increasing pain of LLE wound and was admitted with possible limb ischemia and cardiology is now consulted for preoperative cardiovascular risk stratification. Patient has known PAD with previous right sided
peripheral bypass in 2022. 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 Patient lives with his nephew and misses most if not all of his outpatient appointments, but says he is compliant with medications. Patient has not been seen by vascular
surgery in the office for almost a year and reports his wound has been present for months. There is malodor upon walking into the room and a left distal calf wound on examination. Vascular surgery note reviewed by me and they are recommending
peripheral bypass. Patient reports despite LLE wound he is still active in the home and has a bedroom on the second floor causing him to go up and down the stairs on a daily basis and he denies any chest pain or SOB with this. Patient is also
independent with all ADLs and ambulates without an assistive device and denies any chest pain or SOB with ambulation. Patient has known CAD with previous CABG at [place] and then had a PCI at [facility] at a later date and the details have never been
discovered. Most recently on 11/21/2024 the patient was an [id number] STEMI alert, but when taken to the Medicaid Analyst no culprit lesion could be identified. Patient then noted to have evidence of GI bleed and was treated with APC and polypectomy.
Patient did not follow-up in the cardiology office. Patient also has known paroxysmal A-fib, but is generally in SR with amiodarone 200 mg daily. Patient also takes Eliquis 5 mg BID and says he is compliant with this.
-ECG ordered and reviewed by me looks like SR without acute ST changes
-Echo ordered by me, report reviewed and summarized above. EF is preserved and stable, no significant valve disease.
-Despite PAD and LLE wound the patient is ambulatory and is able to go up and down a flight of stairs without chest pain or SOB.
-The patient's last ischemic evaluation was cardiac catheterization on 11/13/2024 and at that time his SHEEHAN to LAD was patent, there was mild to moderate nonobstructive disease of the OM 2 and otherwise no evidence of significant obstructive CAD and
it was felt at that time that his STEMI presentation was likely related to anemia.
-Patient has known paroxysmal atrial fibrillation, but currently NSR.
-Outpatient dose of amiodarone 200 mg daily has been continued and QTc was 479 ms on ECG reviewed by me 09/27/2025
-Outpatient dose of Eliquis 5 mg twice daily (age 74, Cre 1.0, wt 78.6 kg) has been continued, but it can be held for any planned vascular procedures. Patient has history of CVA in 2010, but was not bridged at the time of his peripheral bypass in
2022 without adverse event. Will need to weigh the risk versus the benefit of heparin bridging in patient with history of GI bleed and CVA.
-proBNP 5550 and when he has had acute HF in the past levels have been over 12,000. CXR without recurrent pleural effusion and no obvious CHF. Will continue with his usual dose of Lasix 60 mg PO BID for now
[2025-09-27 10:37] VITALS: BMI 24.9
--- NOTE | 2025-09-27 10:50 | PHA.VAN.FU ---
Vancomycin Assessment / Plan
- Assessment
Renal Function: Stable
WBC's are: Trending Down
In the past 24 hrs, patient has been: Afebrile
- Dosing Plan
Continue: 750 MG Q12
- Monitoring Plan
No level(s) ordered at this time: CONSIDER THE NEXT FEW DAYS
- Follow Up
Pharmacy will continue to follow.
Vancomycin Follow UP
- -
Patient Age: 74
Patient Sex: Male
Vancomycin Day #: 2
Indication: Skin And Soft Tissue
Requesting Provider: Dr Abdoul Blair (Resident)
Pertinent Antimicrobial Allergies:
Sulfa w. hives and itching.
Height / Weight:
Height 5 ft 10 in
Actual Weight 78.698 kg
Pertinent Past Medical History: DM2, COPD (HOME O2), PAD
- Vital Signs / Lab Results
Temp Pulse Resp BP Pulse Ox
97.9 F 60 18 154/67 97
09/27/25 08:30 09/27/25 08:30 09/27/25 08:30 09/27/25 08:30 09/27/25 10:29
Lab Results - Hematology
09/26/25 09/27/25
13:34 07:10
WBC 13.5 H 10.1
Lab Results - Chemistry
09/26/25 09/27/25
13:34 07:10
BUN 24 H 16
Creatinine 1.0 1.0
Estimated Creat Clear 69 69
Albumin 4.0
Microbiology Results
09/26/25 16:35 Influenza Types A & B (MAT) - Final
Nasal Swab Negative for Influenza A & B, NAAT
Negative results must be combined with clinical observations
and patient history.
Nucleic Acid Amplification test (NAAT)performed on the
[employer] platform.
[2025-09-27 11:03] LABS: Carbon Dioxide 41 mmol/L (22-30)
--- NOTE | 2025-09-27 11:39 | W.PN.UPDATE ---
Update Note
Progress Note Update
Seen and examined with [employer] [employer]. See full consultation note. Agree with findings. Known to me status post right lower extremity bypass in 2022. Last seen in the office in October 2024 by me. Was supposed to followed up in 6 weeks but did not
follow-up. Now with persistent left posterior calf distal wound. Appears ischemic. Nonpalpable distal pulses. Imaging all reviewed. He has common femoral stent that is patent. However he does have a little stenosis in the profunda beyond that
stent. 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 Reconstituted tibial flow noted. Anterior tibial artery appears to be the dominant runoff vessel. Popliteal artery occlusion appears progressed compared to prior as well. Discussed with
patient likely need for bypass for limb salvage. Discussed plan. Discussed likely removal of common femoral stent with patch angioplasty/profundoplasty at the time. He is a higher risk patient. Multiple medical comorbidities. Will order
ultrasound vein mapping. Recommending cardiac preoperative risk assessment. Pulmonary preoperative risk assessment. Likely planned surgery on Wednesday provided he is optimized from a medical standpoint (10/01/2025).
[2025-09-27 11:52] VITALS: BP 117/51
[2025-09-27 11:53] LABS: Glucose - Point of Care 278 mg/dl (70-99)
[2025-09-27] MEDS: NOVOLOG FLEXPEN-MODERATE RESISTANCE 5 UNITS SC ×2 (12:17→17:03)
--- NOTE | 2025-09-27 12:26 | CON.PUL ---
Consultation
Consultation Request
Date/Time Consultation Requested: 09/27/2025
Date/Time Consultation Performed: 09/27/2025
Requesting Provider: Dr. Pérez
Performing Provider: Dr. Irwin Mckeon
Reason for Consultation: COPD-preop assessment
Medical History
-
History of Present Illness:
74-year-old man with history of advanced COPD, heart failure with preserved ejection fraction, history of tobacco abuse, history of alcohol abuse, chronic hypoxemic and hypercapnic respiratory failure, history of respiratory failure due to
hypercapnia in the past requiring intubation.
Has a loculated right pleural effusion. Previous thoracentesis negative for cancer.
-
Presented this time with left lower extremity pain redness and swelling for the last month and a half. Nonhealing wound for 4 months. Currently treated for cellulitis.
Patient has known bilateral peripheral arterial disease.
Vascular surgery evaluated the patient. Patient has history of poor compliance with follow-up.
He was recommended to have removal of common femoral stent and subsequent bypass.
We were consulted for preoperative assessment regarding his COPD
-
Past Medical History
Past Medical History: Other (See assessment and plan)
Past Surgical History: Other (Above as per HPI)
Social History
Tobacco: Smoker (Hx of 1-1.5 PPD, now smoking <0.25PPD, and has been smoking since 20 years old)
Alcohol: Occasional
Drug: None
Personal: Single
Living: With Family (nephew)
Employment: Retired
Family History
Family History: CAD (Father: of a heart attack)
Allergies / Home Medications
Allergies
Allergy/AdvReac Type Severity Reaction Status Date / Time
Sulfa (Sulfonamide Allergy hives,itchi Verified 09/26/25 10:44
Antibiotics) ng
Home Medications
�Medication �Instructions �Recorded �Confirmed �Last Taken �Type
fluticasone fur. 100 mcg-umeclid 1 inh inhalation R QPM 07/25/23 09/26/25 08/17/24 History
62.5 mcg-vilant 25 mcg Lung/Breathing Issues
inhalat.powder (Trelegy Ellipta)
atorvastatin 80 mg tablet 80 mg PO HS High Cholesterol 07/26/23 09/26/25 08/17/24 History
folic acid 1 mg tablet 1 mg PO DAILY Supplement 07/16/24 09/26/25 08/18/24 History
amiodarone 200 mg tablet 200 mg PO DAILY Arrhythmia 30 days 07/24/24 09/26/25 08/18/24 Rx
#30 tabs
apixaban 5 mg tablet (Eliquis) 5 mg PO BID Blood clot 07/24/24 09/26/25 08/18/24 Rx
prevention/tx 30 days #60 tabs
thiamine HCl (vitamin B1) 100 mg 100 mg PO DAILY Supplement 08/18/24 09/26/25 08/18/24 History
tablet
ferrous sulfate 325 mg (65 mg 325 mg PO DAILY #30 tabs 08/23/24 09/26/25 Unknown Rx
iron) tablet
ropinirole 0.5 mg tablet 0.5 mg PO HS #30 tabs 08/23/24 09/26/25 Unknown Rx
pantoprazole 40 mg tablet,delayed 40 mg PO DAILY Gastrointestinal 11/30/24 09/26/25 Unknown Rx
release issue 1 month #30 tabs
metformin 500 mg tablet 500 mg PO BID Diabetes 12/02/24 09/26/25 Unknown History
metoprolol succinate 50 mg 50 mg PO BID Heart 12/12/24 09/26/25 Unknown Rx
tablet,extended release 24 hr disease/condition #60 tabs
furosemide 40 mg tablet 60 mg PO BID AT 0800,1600 HF 09/26/25 09/26/25 Unknown History
Review of Systems
-
History Source: Patient
Constitutional: No Symptoms
Vitals / Labs / Diagnostic Testing
Vital Signs
Temp Pulse Resp BP Pulse Ox
98.1 F 65 18 117/51 97
09/27/25 11:52 09/27/25 11:52 09/27/25 11:52 09/27/25 11:52 09/27/25 11:52
Lab Data
09/27/25 07:10
09/27/25 07:10
Microbiology
09/26/25 16:35 Nasal Swab Influenza Types A & B (MAT) - Final
Negative for Influenza A & B, NAAT
Negative results must be combined with clinical observations
and patient history.
Nucleic Acid Amplification test (NAAT)performed on the
[employer] platform.
Diagnostic Testing:
Physical Exam
-
HEENT: Normocephalic
Cardiovascular: S1/S2
Respiratory: Wheeze (minimal expiratory)
GI: Soft and Non Distended
Neurology: Awake and Alert
Skin: Warm and Other (LLE mild erythema, dry skin)
General: Comfortable (able to speak in full sentences.)
Assessment
-
74-year-old man with multiple medical problems. Advanced COPD. Chronic hypercapnic and hypoxemic respiratory failure. Coronary artery disease post bypass, peripheral vascular disease, ongoing smoking, alcohol abuse disorder.
Admitted to the hospital with lower extremity swelling, erythema, nonhealing ulcer. Known to have peripheral arterial disease. Evaluation by vascular surgery determined that patient would be candidate for bypass-we were consulted for preparatory
assessment.
History of advanced/severe COPD with chronic hypercapnic respiratory failure FEV1 46%. Seen last time by Dr. Mckeon in the office 11/16/2024. Also with possible obstructive sleep apnea-sleep study has been recommended in the past. Lost
appointment after that.
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 FEV1 less than 50%.
Suspect chronic cor pulmonale based on echocardiogram 11/21/2024.
Chest x-ray 09/26/2025: No acute abnormalities.
Unable to perform 6-minute walk testing due to mobility issues.
Peripheral vascular disease: Nonhealing ulcer-plans for extraction of stent and lower extremity bypass.
Conditions present prior admission:
Hospital admission 11/2024 due to hypercapnic respiratory failure requiring intubation.
Chronic right pleural effusion: Chest tube placed 12/02/2024.
pH 7.51/white blood cells 480/93% mononuclear/glucose 170/total protein 3.1/LDH 176/ambulates 56/triglycerides under 30.
Negative cytology
Lung nodule 7.4 mm on CAT scan January 2024-due for repeat CT. Request given 11/16/2024.
Patient did not follow-up with CAT scan.
Active tobacco smoker-ongoing
EKG changes initially admitted as ST elevation myocardial infraction alert
s/p Cardiac catheterization 11/21/2024: Nonobstructive coronary artery disease. Elevated LVEDP at 19.
Advanced COPD due to tobacco use not in an acute exacerbation
Chronic hypoxemic respiratory failure 2-3 L of supplemental oxygen.
On Trelegy
Last seen by Dr. Mckeon 11/16/2024
PFT 2022 - 1.43L 46%
He was recommended to transition to nebulized therapy as unlikely to perform inhaler maneuver.
Paroxysmal A-fib/flutter on Eliquis
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
CAD s/p CABG
PAD with Hx of right femoral endarterectomy and femoral bypas.
DM type II (HbA1C: 7.5 on 08/19/2024)
Hepatic steatosis-mild ascites on ultrasound
History of hepatitis C
History of alcohol abuse-Patient states no longer using 12/02/2024
History of tobacco abuse patient states that no longer using 12/02/2024
Plan
-
From the COPD perspective: Patient has not quit smoking, last time seen in my office in October 2024 with severe airflow obstruction FEV1 around 31%-likely lower due to ongoing smoking of about half a pack a day.
Currently chest x-ray clear.
Lung exam relatively clear
Based on my last evaluation in my office-I did not think patient was able to perform adequate maneuver I recommended transition to nebulized therapy. He never followed up.
In preparation for surgery next week: We will transition to budesonide/DuoNebs
Hold inhalers
minimal expiratory wheezing on exam - possibly chronic patient states that he feels at baseline.
Okay to continue dexamethasone for today but hopefully rapid taper thereafter if not worse - will cont to follow daily.
Continue oxygen supplementation to maintain pulse ox above 90%. Currently at baseline of 2 L at rest.
He was not able to perform 6-minute walk testing before due to mobility issues and peripheral vascular disease.
-
May proceed with surgery next week if he remains stable from the pulmonary perspective. From the pulmonary perspective high risk for pulmonary complications (including: Atelectasis, prolonged mechanical ventilation, pneumonia, pulmonary embolism
etc.) with general anesthesia but not prohibitive.
Will optimize with nebulizer therapy
Secretion clearance interventions
I agree with the smoking cessation with nicotine replacement
-
He was recommended in the outpatient setting to start possibly noninvasive mechanical ventilation-never followed through with this.
Will obtain baseline ABG tomorrow morning
Will consider Bipap during postop period if patient somnolent.
I have offered nocturnal NIV while in house but he would like to hold off.
-
DVT prophylaxis on apixaban
Will follow
-
Follow-up with Dr. Mckeon after discharge.
Dr. Mckeon has previously discussed with daughter and patient regarding DNR status. Remains full code.
Diagnostic Data
Chest x-ray 09/26/2025: Clear lungs.
CXR 12/06/24- The tip of the right-sided chest tube is at the lateral right base and there has been near complete resolution of the pleural fluid collection at the right lung base in the interval since the prior study. There is no pneumothorax
Chest X-Ray: 12/03/24- Right pleural pigtail catheter is present. Slight interval decrease in size of right pleural effusion. No evidence for significant pneumothorax.
CT chest 12/02/2024: Old right 4 through 11 rib fractures; Moderate to large right pleural effusion. Compressive atelectasis. No significant left pleural effusion. Small nodular opacity in the left upper lobe new compared to prior CAT scan.
Echo: 11/21/24- Normal left ventricular size and function. Mild concentric left ventricular hypertrophy. Left ventricular ejection fraction is 50% by visual assessment. There is basal inferior akinesis. Stage II diastolic dysfunction suggestive of
abnormal relaxation and increased filling pressures. Mitral valve opens normally. Thickened mitral valve leaflets. Mitral annular calcification. Trace mitral regurgitation is seen. Mildly dilated left atrium. Tricuspid valve opens normally. Mild
tricuspid regurgitation. Estimated pulmonary artery pressure of 44 mmHg. Assuming a right atrial pressure of 8 mmHg. Dilated right atrium. Enlarged right ventricular size. Right ventricular hypokinesis. Since echocardiogram May 2024, there is
no significant change.
[2025-09-27 15:45] VITALS: BP 131/55
[2025-09-27] MEDS: DUONEB 3 ML INH ×2 (15:50→19:01)
[2025-09-27 16:31] LABS: Glucose - Point of Care 278 mg/dl (70-99)
[2025-09-27 19:19] VITALS: BP 128/57
[2025-09-27 19:36] LABS: Hepatitis C Antibody Reactive (Negative)
[2025-09-27] MEDS: LIPITOR 80 MG PO (19:42)
[2025-09-27] MEDS: REQUIP 0.5 MG PO (19:42)
[2025-09-27 21:45] LABS: Glucose - Point of Care 225 mg/dl (70-99)
[2025-09-27 23:09] VITALS: BP 130/59
[2025-09-28] MEDS: ZOSYN 50 IV ×3 (01:54→13:20)
[2025-09-28 03:55] VITALS: BP 103/50
[2025-09-28] MEDS: NSS 1000 IV (04:50)
[2025-09-28] MEDS: DECADRON 4 MG IV ×2 (05:00→16:46)
[2025-09-28] MEDS: VANCOCIN 150 IV (05:00)
[2025-09-28 05:32] LABS: B.E. 17.0 mmol/L; O2 Saturation % 96.7 % (94-98); PO2 83 mmHg (83-108)
[2025-09-28 05:41] LABS: HCO3 46.7 mmol/L (21-28); PCO2 79 mmHg (35-48)
[2025-09-28 06:00] VITALS: BMI 25.4
[2025-09-28] MEDS: DUONEB 3 ML INH ×4 (07:39→19:45)
[2025-09-28] MEDS: PULMICORT 0.25 MG INH ×2 (07:39→19:45)
[2025-09-28 07:41] LABS: Glucose - Point of Care 207 mg/dl (70-99)
[2025-09-28 07:58] VITALS: BP 141/65
[2025-09-28] MEDS: NOVOLOG FLEXPEN-MODERATE RESISTANCE 3 UNITS SC (08:39)
[2025-09-28] MEDS: NICODERM TRANSDERMAL 21 MG TRANSDERM (08:41)
[2025-09-28] MEDS: TOPROL XL 50 MG PO ×2 (08:41→20:12)
[2025-09-28] MEDS: LASIX 60 MG PO ×2 (08:42→16:12)
[2025-09-28] MEDS: VITAMIN B1 100 MG PO (08:42)
[2025-09-28] MEDS: ELIQUIS 5 MG PO ×2 (08:42→20:13)
[2025-09-28] MEDS: PACERONE 200 MG PO (08:43)
[2025-09-28] MEDS: FEOSOL 325 MG PO (08:43)
[2025-09-28] MEDS: FOLVITE 1 MG PO (08:43)
[2025-09-28] MEDS: PROTONIX 40 MG PO (08:44)
[2025-09-28 11:27] VITALS: BP 137/56
[2025-09-28 11:39] LABS: Glucose - Point of Care 261 mg/dl (70-99)
[2025-09-28] MEDS: NOVOLOG FLEXPEN-MODERATE RESISTANCE 5 UNITS SC ×2 (11:44→16:44)
--- NOTE | 2025-09-28 12:19 | W.PN.PUL3 ---
Today's Communication / Plan
-
Continue nebulizer therapy DuoNeb/Pulmicort while in the hospital
Start tapering down steroids tomorrow, may transition to prednisone with a quick taper.
Continue nicotine replacement
Incentive spirometer
Recommending nocturnal BiPAP while in the hospital as patient has chronic hypercapnic respiratory failure.(This was recommended in the outpatient setting but patient never followed through)--today patient more agreeable to start BiPAP 12 at night.
Will follow
Assessment
-
74-year-old man with multiple medical problems. Advanced COPD. Chronic hypercapnic and hypoxemic respiratory failure. Coronary artery disease post bypass, peripheral vascular disease, ongoing smoking, alcohol abuse disorder.
Admitted to the hospital with lower extremity swelling, erythema, nonhealing ulcer. Known to have peripheral arterial disease. Evaluation by vascular surgery determined that patient would be candidate for bypass-we were consulted for preparatory
assessment.
History of advanced/severe COPD with chronic hypercapnic respiratory failure FEV1 46%. Seen last time by Dr. Mckeon in the office 11/16/2024. Also with possible obstructive sleep apnea-sleep study has been recommended in the past. Lost
appointment after that.
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 FEV1 less than 50%.
Suspect chronic cor pulmonale based on echocardiogram 11/21/2024.
Chest x-ray 09/26/2025: No acute abnormalities.
Unable to perform 6-minute walk testing due to mobility issues.
Peripheral vascular disease: Nonhealing ulcer-plans for extraction of stent and lower extremity bypass.
Conditions present prior admission:
Hospital admission 11/2024 due to hypercapnic respiratory failure requiring intubation.
Chronic right pleural effusion: Chest tube placed 12/02/2024.
pH 7.51/white blood cells 480/93% mononuclear/glucose 170/total protein 3.1/LDH 176/ambulates 56/triglycerides under 30.
Negative cytology
Lung nodule 7.4 mm on CAT scan January 2024-due for repeat CT. Request given 11/16/2024.
Patient did not follow-up with CAT scan.
Active tobacco smoker-ongoing
EKG changes initially admitted as ST elevation myocardial infraction alert
s/p Cardiac catheterization 11/21/2024: Nonobstructive coronary artery disease. Elevated LVEDP at 19.
Advanced COPD due to tobacco use not in an acute exacerbation
Chronic hypoxemic respiratory failure 2-3 L of supplemental oxygen.
On Trelegy
Last seen by Dr. Mckeon 11/16/2024
PFT 2022 - 1.43L 46%
He was recommended to transition to nebulized therapy as unlikely to perform inhaler maneuver.
Paroxysmal A-fib/flutter on Eliquis
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
CAD s/p CABG
PAD with Hx of right femoral endarterectomy and femoral bypas.
DM type II (HbA1C: 7.5 on 08/19/2024)
Hepatic steatosis-mild ascites on ultrasound
History of hepatitis C
History of alcohol abuse-Patient states no longer using 12/02/2024
History of tobacco abuse patient states that no longer using 12/02/2024
Plan
-
From the COPD perspective: Patient has not quit smoking, last time seen in my office in October 2024 with severe airflow obstruction FEV1 around 31%-likely lower due to ongoing smoking of about half a pack a day.
Currently chest x-ray clear.
Lung exam relatively clear
Based on my last evaluation in my office-I did not think patient was able to perform adequate maneuver I recommended transition to nebulized therapy. He never followed up.
In preparation for surgery next week: Continue budesonide/DuoNebs while in the hospital
Hold inhalers-can restart upon discharge.
-
minimal expiratory wheezing on exam - possibly chronic patient states that he feels at baseline.
Okay to continue dexamethasone for today but hopefully rapid taper thereafter if not worse -in the next 24 to 48 hours.
Continue oxygen supplementation to maintain pulse ox above 90%. Currently at baseline of 2 L at rest.
He was not able to perform 6-minute walk testing before due to mobility issues and peripheral vascular disease.
-
May proceed with surgery next week if he remains stable from the pulmonary perspective. From the pulmonary perspective high risk for pulmonary complications (including: Atelectasis, prolonged mechanical ventilation, pneumonia, pulmonary embolism
etc.) with general anesthesia but not prohibitive.
Continue nebulizers as above.
Secretion clearance interventions
Again encouraged smoking cessation-->nicotine replacement
-
Chronic hypercapnic respiratory failure: ABG 09/28/2025: 7.30 . Compensated chronic hypercapnic respiratory failure. Increases risk of complications.
He was recommended in the outpatient setting to start possibly noninvasive mechanical ventilation-never followed through with this.
Will consider Bipap during postop period if patient somnolent.
Initially not interested but he is more agreeable now.
Start nocturnal BiPAP 09/28 while in the hospital.
-
DVT prophylaxis on apixaban
Will follow
-
Follow-up with Dr. Mckeon after discharge.
Dr. Mckeon has previously discussed with daughter and patient regarding DNR status. Remains full code.
Diagnostic Data
Chest x-ray 09/26/2025: Clear lungs.
CXR 12/06/24- The tip of the right-sided chest tube is at the lateral right base and there has been near complete resolution of the pleural fluid collection at the right lung base in the interval since the prior study. There is no pneumothorax
Chest X-Ray: 12/03/24- Right pleural pigtail catheter is present. Slight interval decrease in size of right pleural effusion. No evidence for significant pneumothorax.
CT chest 12/02/2024: Old right 4 through 11 rib fractures; Moderate to large right pleural effusion. Compressive atelectasis. No significant left pleural effusion. Small nodular opacity in the left upper lobe new compared to prior CAT scan.
Echo: 11/21/24- Normal left ventricular size and function. Mild concentric left ventricular hypertrophy. Left ventricular ejection fraction is 50% by visual assessment. There is basal inferior akinesis. Stage II diastolic dysfunction suggestive of
abnormal relaxation and increased filling pressures. Mitral valve opens normally. Thickened mitral valve leaflets. Mitral annular calcification. Trace mitral regurgitation is seen. Mildly dilated left atrium. Tricuspid valve opens normally. Mild
tricuspid regurgitation. Estimated pulmonary artery pressure of 44 mmHg. Assuming a right atrial pressure of 8 mmHg. Dilated right atrium. Enlarged right ventricular size. Right ventricular hypokinesis. Since echocardiogram May 2024, there is
no significant change.
Subjective Data
-
Date of Service:
Date of Service: September 28, 2025
Chief Complaint: Pulmonary Follow Up (Severe COPD-chronic shortness of breath.)
Subjective:
Denies increased phlegm production
Chronic shortness of breath stable
Denies expiratory wheezing
Review of Systems
Cardiopulmonary: Dyspnea (chronic) and Cough (chonic)
GI: Abdominal Pain (n) and Nausea (n)
Objective Data
Data Reviewed
Vital Signs / I&O / Oxygen:
Vital Signs
Temp Pulse Resp BP Pulse Ox
97.7 F 60 18 137/56 94
09/28/25 11:27 09/28/25 11:27 09/28/25 11:27 09/28/25 11:27 09/28/25 11:27
Intake and Output
09/27/25 09/28/25 09/29/25
06:59 06:59 06:59
Intake Total 1780 / 1780 3790 / 3790
Output Total 825 / 825 2630 / 2630 400 / 400
Balance 955 / 955 1160 / 1160 -400 / -400
SaO2 94
Nasal Cannula flow liters per 3
minute
Physical Exam
General: Comfortable (at rest)
HEENT: Normocephalic
Cardiovascular: S1-S2
Respiratory: Other (Prolonged expiratory phase)
GI: Soft and Non Distended
Neurology: Awake and Alert
Skin: Other (Trace to +1 B/L LE edema. 3 inch lesion left calf with malodor)
Labs/Micro/Reports
Lab Data
09/27/25 07:10
09/27/25 07:10
Laboratory Results
09/28/25
05:18
pH 7.38
pCO2 79 H*
pO2 83
HCO3 46.7 H*
O2 Delivery Level
Microbiology
09/26/25 16:35 Nasal Swab Influenza Types A & B (MAT) - Final
Negative for Influenza A & B, NAAT
Negative results must be combined with clinical observations
and patient history.
Nucleic Acid Amplification test (NAAT)performed on the
[employer] platform.
--- NOTE | 2025-09-28 13:15 | W.PN.CARDCBS ---
Addendum entered and electronically signed by Heriberto Olivarez MD 09/28/25 14:54:
74-year-old man admitted with left popliteal artery occlusion and persistent left posterior calf wound. With ischemic changes and nonpalpable distal pulses scheduled for revascularization for limb salvage. Asked to perform preoperative evaluation.
PMH/PSH: right femoral endarterectomy with patch angioplasty and femoral to posterior tibial bypass July 2023, left common femoral stents, left SFA occlusion, left popliteal occlusion, chronic respiratory failure, HFpEF, COPD, history of right
pleural effusion, status post chest tube, currently without recurrent effusion, remote CABG, SHEEHAN to LAD, history of PCI details unknown, non-ST segment elevation TX without culprit October 2024, history of GI bleeding, angioectasias with argon
photocoagulation, remote CVA 2010, paroxysmal A-fib a flutter on amiodarone, noncompliance, hypertension, hyperlipidemia, type 2 diabetes, history of hep C successfully cured, tobacco abuse, history of bedbugs, HFpEF
Meds: Reviewed
No new complaints.
137/56, pulse 53, respiratory rate 16, afebrile, weight is 80.3 kg no distress lungs with wheezes and rhonchi, regular rate and rhythm, no obvious murmurs JVD okay, chronic skin changes in legs not much edema, wound on the posterior aspect of right
lower extremity distally, crusted over, pulses markedly diminished
AB.38, pCO2 79, pO2 83, bicarb 47, base excess 17
Impression:
Occluded left SFA with limb threatening ischemia and chronic left lower extremity wound
History of HFpEF, currently compensated
CAD status post SHEEHAN to LAD
History of PCI
Non-ST segment elevation TX in October 2024
Echocardiogram: mild LVH, basal inferior, basal inferolateral and apical septal hypokinesis, EF 50-55%, MAC, normal left atrium no MR, aortic sclerosis, mild RV hypokinesis, normal right heart, could not determine pulmonary artery pressure
Cardiac catheterization October 2024: luminal irregs of left main, occluded LAD after large septal disk grinder, occlusion within stents, patent SHEEHAN to LAD, 50% stenosis to, proximal to distal overlapping stents with mild in-stent restenosis,
haziness in distal vessel with DIMITRI-3 flow, no vein graft identified
Plan:
Overall cardiac status is stable.
Await surgery next week
Major issue at present is severe underlying pulmonary disease
Discontinue apixaban 48 hours preop, resume postop when okay from surgical standpoint
We will follow from a distance, check postop
Original Note:
Today's Communication / Plan
-
Continue cardiac meds including metoprolol, atorvastatin, furosemide and amiodarone
Eliquis can be held 48 hours prior to OR
Continue to monitor on telemetry, patient currently in sinus rhythm
Check BMP and mag in a.m.
Impression / Plan
-
Dr. Modesta Pretty
Director Of Vendor Management: Dr Riggs
Impression:
Admitted with LLE wound and pain 09/26/2025
Occluded left SFA with limb threatening ischemia and chronic left lower extremity wound
PAD
s/p right femoral endarterectomy with saphenous vein angioplasty and right femoral to PT bypass 07/1123
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
Chronic Hypoxemic and Hypercapnic Respiratory Failure
Chronic HFpEF
COPD
h/o right pleural effusion/status post chest tube
s/p right sided thora for 1.9 L 11/21/24 and eventual right chest tube placement to 825 resulting in successful drainage of previously loculated effusion
No evidence of recurrent pleural effusion on CXR 09/26/2025
CAD
s/p remote CABG at [facility] with SHEEHAN to LAD
PCI with unclear details at [place]
Out of hospital STEMI alert 11/21/2024, no evidence of culprit lesion by cardiac cath to explain patient's presentation
h/o GI bleed/macrocytic anemia
s/p EGD/colon 11/24/24 with 1 angioectasia status post APC, and 3 colon polyp status post removal but no clear etiology of acute anemia
History of CVA 2010
Paroxysmal atrial fibrillation/flutter
Chronic Eliquis OAC
Chronic amiodarone therapy
Poor medical compliance
HTN
HLD
DM2
Hep C, treated and cleared infection
Ongoing tobacco use
h/o bedbugs 05/2024 admission
Dobutamine nuclear stress test 07/29/23 finds large inferior and basal inferior septal infarct without stephanie-infarct ischemia. Baseline LVEF 43%
Echo 07/28/23 finds normal LV size and function with LVEF in the low normal range estimated at 51% with basal to mid inferior wall severe hypokinesis. No significant valvular disease.
Echo 06/12/24: EF 50%, basal inferior wall hypokinetic on parasternal short axis views, RV mildly dilated, mildly dilated RA, no significant valvular disease noted
Echo 11/13/24: EF 50%, stage II diastolic dysfunction, trace MR, mild TR with PAP 44 mmHg no
Echo 11/21/24: Ejection fraction 50%, basal inferior akinesis, mild TR, PA systolic 44 mmHg, enlarged right ventricle with right ventricular hypokinesis
Echo 09/27/2025: EF 50-55%,mild LVH, basal inferior, basal inferolateral and apical septal hypokinesis, normal left atrium. MAC, no MR, aortic sclerosis, mild RV hypokinesis, normal right heart, could not determine pulmonary artery pressure
Cardiac catheterization October 2024: luminal irregs of left main, occluded LAD after large septal disk grinder, occlusion within stents, patent SHEEHAN to LAD, 50% stenosis to, proximal to distal overlapping stents with mild in-stent restenosis,
haziness in distal vessel with DIMITRI-3 flow, no vein graft identified
Impression:
Plan:
- Admitted 09/26/2025 with LLE wound concerning for cellulitis and ischemic changes with nonpalpable distal pulses and found to have progression of left lower extremity PAD including occluded SFA as well as stenosis in profunda beyond previously
placed common femoral stent on imaging and vascular surgery now recommending bypass for limb salvage with removal of common femoral stent with past angioplasty/profundoplasty tentatively planned for 10/01/2025. Cardiology asked to perform
preoperative evaluation
Coronary artery disease with no recent interventions.
-ECG SR without acute ST changes. Echo report reviewed and summarized above. EF is preserved and stable, no significant valve disease. Despite PAD and LLE wound the patient is ambulatory and is able to go up and down a flight of stairs without
chest pain or SOB.
-The patient's last ischemic evaluation was cardiac catheterization on 11/13/2024 and at that time his SHEEHAN to LAD was patent, there was mild to moderate nonobstructive disease of the OM 2 and otherwise no evidence of significant obstructive CAD and
it was felt at that time that his STEMI presentation was likely related to anemia.
- Continue high-dose atorvastatin, metoprolol and Eliquis. If Eliquis to be held for prolonged period of time could consider aspirin in its place
-Patient has known paroxysmal atrial fibrillation, but currently NSR, QTc was 479 ms on ECG reviewed by me 09/27/2025 on Amiodarone 200 mg.
-Outpatient dose of Eliquis 5 mg twice daily (age 74, Cre 1.0, wt 78.6 kg) has been continued, but it can be held for 48 hours prior to any planned vascular procedures.
- Patient has history of CVA in 2010, but was not bridged at the time of his peripheral bypass in 2022 without adverse event.
-proBNP 5550 09/27. Previously when he has had acute HF levels have been over 12,000. CXR without recurrent pleural effusion and no obvious CHF. Will continue with his usual dose of Lasix 60 mg PO BID for now. Can be held prior to surgery if
vascular surgery feels necessary
-Pulmonary following for COPD with ongoing tobacco abuse. Recommendation of continued DuoNebs and IV steroids while in hospital. Due to compensated chronic hypercapnic respiratory failure they recommended initiation of nocturnal BiPAP while in
hospital.
HPI 09/27/2025:
Patient came to the ER yesterday with increasing pain of LLE wound and was admitted with possible limb ischemia and cardiology is now consulted for preoperative cardiovascular risk stratification. Patient has known PAD with previous right sided
peripheral bypass in 2022. Patient has also had left METAL SHAPING MACHINE OPERATOR stent in the past. Patient lives with his nephew and misses most if not all of his outpatient appointments, but says he is compliant with medications. Patient has not been seen by vascular
surgery in the office for almost a year and reports his wound has been present for months. There is malodor upon walking into the room and a left distal calf wound on examination. Vascular surgery note reviewed by me and they are recommending
peripheral bypass. Patient reports despite LLE wound he is still active in the home and has a bedroom on the second floor causing him to go up and down the stairs on a daily basis and he denies any chest pain or SOB with this. Patient is also
independent with all ADLs and ambulates without an assistive device and denies any chest pain or SOB with ambulation. Patient has known CAD with previous CABG at [place] and then had a PCI at [facility] at a later date and the details have never been
discovered. Most recently on 11/21/2024 the patient was an [id number] STEMI alert, but when taken to the [facility] [employer] [facility] no culprit lesion could be identified. Patient then noted to have evidence of GI bleed and was treated with APC and polypectomy.
Patient did not follow-up in the cardiology office. Patient also has known paroxysmal A-fib, but is generally in SR with amiodarone 200 mg daily. Patient also takes Eliquis 5 mg BID and says he is compliant with this.
Progress Note - Director Of Vendor Management
Subjective
Date of Service: September 28, 2025
Patient seen and examined. Patient resting comfortably in bed. On oxygen. Reports no concerning cardiac symptoms.
Objective
Labs:
09/27/25 07:10
09/27/25 07:10
Labs
Hgb 14.9 g/dL (13.0-18.0) 09/27/25 07:10
Hct 46.7 % (39.0-52.0) 09/27/25 07:10
Plt Count 340 10^3/uL (130-400) 09/27/25 07:10
Sodium 137 mmol/L (135-145) 09/27/25 07:10
Potassium 4.0 mmol/L (3.5-5.1) 09/27/25 07:10
BUN 16 mg/dl (9-20) 09/27/25 07:10
Creatinine 1.0 mg/dL (0.7-1.3) 09/27/25 07:10
Glucose 167 mg/dl (70-99) H 09/27/25 07:10
Vital Signs and I&O:
Vital Signs
Temp Pulse Resp BP Pulse Ox
97.7 F 60 18 137/56 94
09/28/25 11:27 09/28/25 11:27 09/28/25 11:27 09/28/25 11:27 09/28/25 11:27
Vital Signs
Temp Pulse Resp BP Pulse Ox
97.7 F 60 18 137/56 94
09/28/25 11:27 09/28/25 11:27 09/28/25 11:27 09/28/25 11:27 09/28/25 11:27
Intake & Output
09/26/25 09/27/25 09/28/25 09/29/25
06:59 06:59 06:59 06:59
Intake Total 1780 / 1780 3790 / 3790
Output Total 825 / 825 2630 / 2630 400 / 400
Balance 955 / 955 1160 / 1160 -400 / -400
Physical Exam
Physical Exam
GEN: No distress, awake, Ox3, sitting in bed on oxygen
HEENT: supple, anicteric, mmm
LUNGS: Intermittent wheezes/coarse breath sounds with prolonged expiratory phase, on oxygen
CV: Reg, S1/S2, no murmur
ABD: soft, BS+, NT/ND
EXT: Trace to +1 bilateral lower extremity edema, skin changes consistent with chronic venous stasis, chronic posterior left lower calf wound noted
NEURO: Gross non-focal
SKIN: No rash, warm, pink
--- NOTE | 2025-09-28 15:02 | PHA.VAN.FU ---
Vancomycin Assessment / Plan
- Assessment
Renal Function: No New Labs Today
Concomitant Antimicrobials: piperacillin/tazobactam
- Dosing Plan
Continue: Vanc 750mg Q12H
- Monitoring Plan
Peak Level: 09/28 21:00
Trough Level: 09/29 05:30
Monitoring Comments: levels to be drawn after 4th maintenance dose
- Follow Up
Pharmacy will continue to follow.
Vancomycin Follow UP
- -
Patient Age: 74
Patient Sex: Male
Vancomycin Day #: 3
Indication: Skin And Soft Tissue
Requesting Provider: Dr Abdoul Blair (Resident)
Pertinent Antimicrobial Allergies:
Sulfa w. hives and itching.
Height / Weight:
Height 5 ft 10 in
Actual Weight 80.343 kg
Pertinent Past Medical History: DM2, COPD (HOME O2), PAD
- Vital Signs / Lab Results
Temp Pulse Resp BP Pulse Ox
97.7 F 53 16 137/56 94
09/28/25 11:27 09/28/25 11:45 09/28/25 11:45 09/28/25 11:27 09/28/25 11:45
Lab Results - Hematology
09/26/25 09/27/25
13:34 07:10
WBC 13.5 H 10.1
Lab Results - Chemistry
09/26/25 09/27/25
13:34 07:10
BUN 24 H 16
Creatinine 1.0 1.0
Estimated Creat Clear 69 69
Albumin 4.0
Microbiology Results
09/26/25 16:35 Influenza Types A & B (MAT) - Final
Nasal Swab Negative for Influenza A & B, NAAT
Negative results must be combined with clinical observations
and patient history.
Nucleic Acid Amplification test (NAAT)performed on the
[employer] platform.
[2025-09-28 15:28] VITALS: BP 133/58
--- NOTE | 2025-09-28 15:29 | W.PN.HOSP.TC ---
Today's Communication/Plan
-
Fall left femoral-popliteal bypass tentatively on Monday 10/01
Timing for holding anticoagulation as per vascular surgery
Wound does not look infected. Monitor closely off antibiotics. Preoperative antibiotics ordered by vascular
Continue wound care
Continue current cardiovascular regimen
BiPAP at night
Start steroid taper from tomorrow
Assessment / Plan
Assessment / Plan
Impression
Presentation with worsening of left lower extremity pain and nonhealing wound.
Chronic limb threatening ischemia left lower extremity with nonhealing wound and mild cellulitis.
Mild COPD exacerbation (reports subjective dyspnea while on home O2, bronchospasm on exam)
Conditions prior to admission
PAD.
� Status post right femoral enterectomy with saphenous vein angioplasty and right femoral to popliteal bypass 08/16
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
COPD
History of recurrent right-sided pleural effusion requiring thoracentesis on multiple occasions. Path negative for malignancy
Pulmonary nodule under surveillance.
CAD.
� Status post remote CABG at [facility] with SHEEHAN to LAD
� PCI with unclear details at [facility]
�Out of the hospital STEMI alert 11/18 with no evidence of culprit lesion
Chronic CHF preserved EF
Paroxysmal atrial fibrillation/flutter
Chronic anticoagulation with Eliquis.
History of gastrointestinal bleed: EGD/colonoscopy 11/18 with angioectasia requiring APC and colon polyps
Chronic macrocytic anemia
Hypertension
Diabetes type 2
Hepatitis C treated and cleared infection
Ongoing tobacco use disorder
Imaging
Chest x-ray: No acute cardiopulmonary process
Arterial ultrasound:
1. Right lower extremity: KEREN 1.16, within normal limits. TBI mildly reduced 0.63, improved from prior study (0.53). Multiphasic common femoral and profunda waveforms. Femoral to posterior tibial artery bypass is patent with mild distal anastomotic
velocity elevation 158 cm/s (velocity ratio 2.43), possibly consistent with greater than 50% stenosis. Not significantly changed from prior study. Continuous Doppler waveforms at the posterior tibial artery are multiphasic, at the dorsalis pedis are
monophasic.
2. Left lower extremity: KEREN 0.67. Consistent with moderate arterial deficiency. However, on the prior study KEREN was not obtainable/measurable due to medial calcinosis/noncompressibility of the vessels. Therefore this value may be false. TBI is
0.16, severely reduced, but relatively stable compared to prior study (0.12). Severe left common femoral artery stenosis with likely occlusion, likely unchanged. Superficial femoral artery and popliteal artery appear occluded as well. Continuous
Doppler waveforms the dorsalis pedis and posterior tibial arteries are monophasic.
Abdominal CTA
1. Right leg: Patent right femoral to posterior tibial artery bypass graft redemonstrated.
2. Left leg: Patent stent in the left common femoral artery/profunda femoris. Superficial femoral artery is completely occluded throughout the proximal to mid segments with partial distal reconstitution, worsened compared to prior. The popliteal
artery shows complete occlusion, progressed in extent from prior. Occluded common tibioperoneal trunk, progressed. Below this, there is reconstitution with three-vessel proximal run off with scattered mild to moderate disease.
3. Mild soft tissue/skin irregularity along the posterior left lower extremity/lower calf region with underlying subcutaneous edema, suggesting cellulitis. No overt fluid collections identified.
Echocardiogram 11/18:
Normal left ventricular size and function. Mild concentric left ventricular
hypertrophy. Left ventricular ejection fraction is 50% by visual assessment.
There is basal inferior akinesis. Stage II diastolic dysfunction suggestive of
abnormal relaxation and increased filling pressures.
Mitral valve opens normally. Thickened mitral valve leaflets. Mitral annular
calcification. Trace mitral regurgitation is seen.
Mildly dilated left atrium.
Tricuspid valve opens normally. Mild tricuspid regurgitation. Estimated
pulmonary artery pressure of 44 mmHg. Assuming a right atrial pressure of 8
mmHg.
Dilated right atrium.
Enlarged right ventricular size. Right ventricular hypokinesis.
Since echocardiogram May 2024, there is no significant change.
Plan
PAD with chronic limb threatening extremely the left lower extremity and nonhealing wound with cellulitis.
Imaging as above.
Wound does not look infected. Mild cellulitis improved since admission. Discontinue vancomycin and Zosyn and monitor wound closely. Preoperative antibiotics as per vascular surgery.
Vascular surgery evaluation for left lower extremity femoropopliteal bypass tentatively on 10/01
He has been on anticoagulation with Eliquis DIRECTOR DATA MANAGEMENT for paroxysmal A-fib/flutter
Previously on Plavix
Continue statin
Will require pulmonary and cardiovascular clearance prior to intervention.
Chronic hypoxic/hypercarbic respiratory failure on home O2
COPD
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
Mild exacerbation
Noted to be bronchospastic on exam with productive cough.
Chest x-ray with no acute cardiopulmonary disease.
Initiated on dexamethasone 4 mg IV every 12 hours. Continue taper for
Continue inhaled corticosteroids and bronchodilators.
BiPAP at night as per pulmonary
Ongoing tobacco use. Counseled about quitting. Provide nicotine patch.
CAD.
Chronic CHF preserved EF.
Paroxysmal atrial fibrillation/flutter.
Weight noted to be up at 78 kg (71 likely dry weight)
Elevated pro CHF BNP close to baseline
No evidence for pulmonary or peripheral edema
Oxygen requirements close to baseline
Continue preadmission diuretic regimen Lasix 60 mg p.o. twice daily
Continue metoprolol, amiodarone, Lipitor.
Continue anticoagulation with Eliquis.
Type 2 diabetes
Hemoglobin A1c 6.7
Hold metformin acutely
Insulin basal bolus protocol with serial Accu-Cheks. Expected hyperglycemia given systemic steroid therapy
Chronic macrocytic anemia. Hemoglobin at the baseline.
History of gastrointestinal hemorrhage.
Monitor hemoglobin while on Eliquis
Continue PPI prophylaxis.
Full code
DVT prophylaxis Eliquis
Anticipated Discharge: > 48 hours
Subjective/Interval History
-
Date of Service: September 28, 2025
Objective Data
-
Labs:
Laboratory Results
09/28/25
05:18
HCO3 46.7 H*
Vital Signs:
Vital Signs
Temp Pulse Resp BP Pulse Ox
97.7 F 53 16 137/56 94
09/28/25 11:27 09/28/25 11:45 09/28/25 11:45 09/28/25 11:27 09/28/25 11:45
I&O
09/27/25 09/28/25 09/29/25
06:59 06:59 06:59
Intake Total 1780 / 1780 3790 / 3790
Output Total 825 / 825 2630 / 2630 400 / 400
Balance 955 / 955 1160 / 1160 -400 / -400
Physical Exam
-
General: Well Developed and No Apparent Distress
HEENT: Normocephalic, Atraumatic and Moist Mucous Membranes
Respiratory: Rhonchi; Negative Wheezes
Cardiac: Regular Rhythm and S1/S2; Negative Murmur, Rub or Gallop
GI: Soft, Nontender, Nondistended and Normal Bowel Sounds; Negative Organomegaly
Rectal: Deferred by Provider
Musculoskeletal: No Clubbing, No Cyanosis and Other (Not palpable dorsal pedis and posterior tibial pulses. Left calf wound with dry eschar)
Skin: Negative Rash
Neuro: Nonfocal/Grossly Intact
[2025-09-28 16:34] LABS: Glucose - Point of Care 271 mg/dl (70-99)
--- NOTE | 2025-09-28 17:49 | CM ---
Alert awake oriented pt who lives with nephew Thaddeus in an apartment with 14 [address] to enter. [address] [place] . He does not want address changed in system .He is independent in ADLs. He has cane as needed.He uses oxygen from [employer].
VN hx No SNF Hx
Pharmacy Katia Cunningham
PCP [facility]
PLAN Home no needs
[2025-09-28 19:23] VITALS: BP 128/60
[2025-09-28] MEDS: TYLENOL 650 MG PO (19:45)
[2025-09-28] MEDS: LIPITOR 80 MG PO (20:13)
[2025-09-28 21:38] LABS: Glucose - Point of Care 231 mg/dl (70-99)
[2025-09-28] MEDS: REQUIP 0.5 MG PO (22:02)
--- NOTE | 2025-09-28 23:00 | RESPNOTE ---
Patient refused to wear Bipap
[2025-09-28 23:04] VITALS: BP 153/66
[2025-09-29 03:18] VITALS: BP 157/68
[2025-09-29 06:00] VITALS: BMI 24.8
[2025-09-29] MEDS: DECADRON 4 MG IV (06:06)
[2025-09-29 07:49] VITALS: BP 154/55
[2025-09-29] MEDS: PULMICORT 0.25 MG INH ×2 (07:50→20:23)
[2025-09-29] MEDS: DUONEB 3 ML INH ×4 (07:50→20:22)
[2025-09-29 08:16] LABS: Blood Urea Nitrogen 17 mg/dl (9-20); Calcium 9.4 mg/dl (8.4-10.2); Chloride 86 mmol/L (98-107); Estimated Creatinine Clearance 86 ml/min; Glucose 180 mg/dl (70-99); Magnesium 1.7 mg/dl (1.6-2.3); Potassium 3.7 mmol/L (3.5-5.1); Sodium 139 mmol/L (135-145); eGFR > 60.00
[2025-09-29 08:32] LABS: Glucose - Point of Care 196 mg/dl (70-99)
[2025-09-29 08:40] LABS: Carbon Dioxide 40 mmol/L (22-30)
[2025-09-29] MEDS: NOVOLOG FLEXPEN-MODERATE RESISTANCE 1 UNITS SC (08:51)
[2025-09-29] MEDS: NICODERM TRANSDERMAL 21 MG TRANSDERM (08:53)
[2025-09-29] MEDS: FOLVITE 1 MG PO (08:53)
[2025-09-29] MEDS: VITAMIN B1 100 MG PO (08:54)
[2025-09-29] MEDS: PROTONIX 40 MG PO (08:54)
[2025-09-29] MEDS: FEOSOL 325 MG PO (08:54)
[2025-09-29] MEDS: LASIX 60 MG PO ×2 (08:55→15:06)
[2025-09-29] MEDS: PACERONE 200 MG PO (08:55)
[2025-09-29] MEDS: TOPROL XL 50 MG PO ×2 (08:55→19:55)
[2025-09-29 11:34] VITALS: BP 125/60
--- NOTE | 2025-09-29 12:27 | W.PN.PUL3 ---
Today's Communication / Plan
-
Doing well at this time, maintained on baseline O2 requirements and is already transition to prednisone
He is scheduled for vascular procedure on 10/01 and likely to transfer to ICU postoperatively
We will follow resume follow-up when he is transferred
Assessment
-
74-year-old man with multiple medical problems. Advanced COPD. Chronic hypercapnic and hypoxemic respiratory failure. Coronary artery disease post bypass, peripheral vascular disease, ongoing smoking, alcohol abuse disorder. Admitted to the
hospital with lower extremity swelling, erythema, nonhealing ulcer. Known to have peripheral arterial disease. Evaluation by vascular surgery determined that patient would be candidate for bypass-we were consulted for preparatory assessment.
History of advanced/severe COPD with chronic hypercapnic respiratory failure FEV1 46%. Seen last time by Dr. Mckeon in the office 11/16/2024. Also with possible obstructive sleep apnea-sleep study has been recommended in the past. Lost
appointment after that.
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 FEV1 less than 50%.
Suspect chronic cor pulmonale based on echocardiogram 11/21/2024.
Chest x-ray 09/26/2025: No acute abnormalities.
Unable to perform 6-minute walk testing due to mobility issues.
Peripheral vascular disease: Nonhealing ulcer-plans for extraction of stent and lower extremity bypass.
Conditions present prior admission:
Hospital admission 11/2024 due to hypercapnic respiratory failure requiring intubation.
Chronic right pleural effusion: Chest tube placed 12/02/2024.
pH 7.51/white blood cells 480/93% mononuclear/glucose 170/total protein 3.1/LDH 176/ambulates 56/triglycerides under 30.
Negative cytology
Lung nodule 7.4 mm on CAT scan January 2024-due for repeat CT. Request given 11/16/2024.
Patient did not follow-up with CAT scan.
Active tobacco smoker-ongoing
EKG changes initially admitted as ST elevation myocardial infraction alert
s/p Cardiac catheterization 11/21/2024: Nonobstructive coronary artery disease. Elevated LVEDP at 19.
Advanced COPD due to tobacco use not in an acute exacerbation
Chronic hypoxemic respiratory failure 2-3 L of supplemental oxygen.
On Trelegy
Last seen by Dr. Mckeon 11/16/2024
PFT 2022 - 1.43L 46%
He was recommended to transition to nebulized therapy as unlikely to perform inhaler maneuver.
Paroxysmal A-fib/flutter on Eliquis
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
CAD s/p CABG
PAD with Hx of right femoral endarterectomy and femoral bypas.
DM type II (HbA1C: 7.5 on 08/19/2024)
Hepatic steatosis-mild ascites on ultrasound
History of hepatitis C
History of alcohol abuse-Patient states no longer using 12/02/2024
History of tobacco abuse patient states that no longer using 12/02/2024
Plan
-
From the COPD perspective: Patient has not quit smoking, last time seen in my office in October 2024 with severe airflow obstruction FEV1 around 31%-likely lower due to ongoing smoking of about half a pack a day.
Currently chest x-ray clear.
Lung exam relatively clear
Based on my last evaluation in my office-I did not think patient was able to perform adequate maneuver I recommended transition to nebulized therapy. He never followed up.
In preparation for surgery next week: Continue budesonide/DuoNebs while in the hospital
Hold inhalers-can restart upon discharge.
-
Minimal expiratory wheezing on exam - possibly chronic patient states that he feels at baseline.
He is transitioned to prednisone, taper every 2 to 3 days
Continue oxygen supplementation to maintain pulse ox above 90%. Currently at baseline of 2 L at rest.
He was not able to perform 6-minute walk testing before due to mobility issues and peripheral vascular disease.
-
May proceed with surgery next week if he remains stable from the pulmonary perspective. From the pulmonary perspective high risk for pulmonary complications (including: Atelectasis, prolonged mechanical ventilation, pneumonia, pulmonary embolism
etc.) with general anesthesia but not prohibitive.
Continue nebulizers as above.
Secretion clearance interventions
Again encouraged smoking cessation-->nicotine replacement
-
Chronic hypercapnic respiratory failure: ABG 09/28/2025: 7.30 . Compensated chronic hypercapnic respiratory failure. Increases risk of complications.
He was recommended in the outpatient setting to start possibly noninvasive mechanical ventilation-never followed through with this.
Will consider Bipap during postop period if patient somnolent.
Initially not interested but he is more agreeable now.
Start nocturnal BiPAP 09/28 while in the hospital.
-
DVT prophylaxis on apixaban
Follow-up with Dr. Mckeon after discharge.
Dr. Mckeon has previously discussed with daughter and patient regarding DNR status. Remains full code.
Diagnostic Data
Chest x-ray 09/26/2025: Clear lungs.
CXR 12/06/24- The tip of the right-sided chest tube is at the lateral right base and there has been near complete resolution of the pleural fluid collection at the right lung base in the interval since the prior study. There is no pneumothorax
Chest X-Ray: 12/03/24- Right pleural pigtail catheter is present. Slight interval decrease in size of right pleural effusion. No evidence for significant pneumothorax.
CT chest 12/02/2024: Old right 4 through 11 rib fractures; Moderate to large right pleural effusion. Compressive atelectasis. No significant left pleural effusion. Small nodular opacity in the left upper lobe new compared to prior CAT scan.
Echo: 11/21/24- Normal left ventricular size and function. Mild concentric left ventricular hypertrophy. Left ventricular ejection fraction is 50% by visual assessment. There is basal inferior akinesis. Stage II diastolic dysfunction suggestive of
abnormal relaxation and increased filling pressures. Mitral valve opens normally. Thickened mitral valve leaflets. Mitral annular calcification. Trace mitral regurgitation is seen. Mildly dilated left atrium. Tricuspid valve opens normally. Mild
tricuspid regurgitation. Estimated pulmonary artery pressure of 44 mmHg. Assuming a right atrial pressure of 8 mmHg. Dilated right atrium. Enlarged right ventricular size. Right ventricular hypokinesis. Since echocardiogram May 2024, there is
no significant change.
Total time spent on this consultation/encounter __45__ minutes which includes review of history, physical exam, medications, laboratory data, personal review of imaging, extensive review of outpatient records, discussion with care team and
respiratory therapy.
Subjective Data
-
Date of Service:
Date of Service: September 29, 2025
Chief Complaint: Pulmonary Follow Up (Severe COPD-chronic shortness of breath.)
Subjective:
Doing well, offers no new complaints
Awaiting OR date 10/01
Objective Data
Data Reviewed
Vital Signs / I&O / Oxygen:
Vital Signs
Temp Pulse Resp BP Pulse Ox
98.2 F 59 20 125/60 98
09/29/25 11:34 09/29/25 11:34 09/29/25 11:34 09/29/25 11:34 09/29/25 11:34
Intake and Output
09/28/25 09/29/25 09/30/25
06:59 06:59 06:59
Intake Total 3790 / 3790 1680 / 1680
Output Total 2630 / 2630 3175 / 3175
Balance 1160 / 1160 -1495 / -1495
SaO2 98
Nasal Cannula flow liters per 6
minute
Physical Exam
General: Comfortable (at rest) and Other (No acute distress)
HEENT: Normocephalic, Anicteric and Moist Mucous Membranes
Cardiovascular: S1-S2 and Regular Rhythm
Respiratory: Clear, Non-Labored Respirations and Other (Prolonged expiratory phase)
GI: Soft and Non Distended
Neurology: Awake and Alert
Skin: Other (Trace to +1 B/L LE edema. 3 inch lesion left calf with malodor)
Labs/Micro/Reports
Lab Data
09/27/25 07:10
09/29/25 06:30
Microbiology
09/26/25 16:35 Nasal Swab Influenza Types A & B (MAT) - Final
Negative for Influenza A & B, NAAT
Negative results must be combined with clinical observations
and patient history.
Nucleic Acid Amplification test (NAAT)performed on the
[employer] platform.
[2025-09-29 12:31] LABS: Glucose - Point of Care 320 mg/dl (70-99)
[2025-09-29] MEDS: NOVOLOG FLEXPEN-MODERATE RESISTANCE 7 UNITS SC (12:34)
--- NOTE | 2025-09-29 13:09 | W.PN.HOSP.TC ---
Today's Communication/Plan
-
Switch to prednisone taper
Hold eliquis 48 hours prior to surgery
Assessment / Plan
Assessment / Plan
Impression
Presentation with worsening of left lower extremity pain and nonhealing wound.
Chronic limb threatening ischemia left lower extremity with nonhealing wound and mild cellulitis.
Mild COPD exacerbation (reports subjective dyspnea while on home O2, bronchospasm on exam)
Conditions prior to admission
PAD.
� Status post right femoral enterectomy with saphenous vein angioplasty and right femoral to popliteal bypass 08/16
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
COPD
History of recurrent right-sided pleural effusion requiring thoracentesis on multiple occasions. Path negative for malignancy
Pulmonary nodule under surveillance.
CAD.
� Status post remote CABG at [facility] with SHEEHAN to LAD
� PCI with unclear details at [facility]
�Out of the hospital STEMI alert 11/18 with no evidence of culprit lesion
Chronic CHF preserved EF
Paroxysmal atrial fibrillation/flutter
Chronic anticoagulation with Eliquis.
History of gastrointestinal bleed: EGD/colonoscopy 11/18 with angioectasia requiring APC and colon polyps
Chronic macrocytic anemia
Hypertension
Diabetes type 2
Hepatitis C treated and cleared infection
Ongoing tobacco use disorder
Imaging
Chest x-ray: No acute cardiopulmonary process
Arterial ultrasound:
1. Right lower extremity: KEREN 1.16, within normal limits. TBI mildly reduced 0.63, improved from prior study (0.53). Multiphasic common femoral and profunda waveforms. Femoral to posterior tibial artery bypass is patent with mild distal anastomotic
velocity elevation 158 cm/s (velocity ratio 2.43), possibly consistent with greater than 50% stenosis. Not significantly changed from prior study. Continuous Doppler waveforms at the posterior tibial artery are multiphasic, at the dorsalis pedis are
monophasic.
2. Left lower extremity: KEREN 0.67. Consistent with moderate arterial deficiency. However, on the prior study KEREN was not obtainable/measurable due to medial calcinosis/noncompressibility of the vessels. Therefore this value may be false. TBI is
0.16, severely reduced, but relatively stable compared to prior study (0.12). Severe left common femoral artery stenosis with likely occlusion, likely unchanged. Superficial femoral artery and popliteal artery appear occluded as well. Continuous
Doppler waveforms the dorsalis pedis and posterior tibial arteries are monophasic.
Abdominal CTA
1. Right leg: Patent right femoral to posterior tibial artery bypass graft redemonstrated.
2. Left leg: Patent stent in the left common femoral artery/profunda femoris. Superficial femoral artery is completely occluded throughout the proximal to mid segments with partial distal reconstitution, worsened compared to prior. The popliteal
artery shows complete occlusion, progressed in extent from prior. Occluded common tibioperoneal trunk, progressed. Below this, there is reconstitution with three-vessel proximal run off with scattered mild to moderate disease.
3. Mild soft tissue/skin irregularity along the posterior left lower extremity/lower calf region with underlying subcutaneous edema, suggesting cellulitis. No overt fluid collections identified.
Echocardiogram 11/18:
Normal left ventricular size and function. Mild concentric left ventricular
hypertrophy. Left ventricular ejection fraction is 50% by visual assessment.
There is basal inferior akinesis. Stage II diastolic dysfunction suggestive of
abnormal relaxation and increased filling pressures.
Mitral valve opens normally. Thickened mitral valve leaflets. Mitral annular
calcification. Trace mitral regurgitation is seen.
Mildly dilated left atrium.
Tricuspid valve opens normally. Mild tricuspid regurgitation. Estimated
pulmonary artery pressure of 44 mmHg. Assuming a right atrial pressure of 8
mmHg.
Dilated right atrium.
Enlarged right ventricular size. Right ventricular hypokinesis.
Since echocardiogram May 2024, there is no significant change.
Plan
PAD with chronic limb threatening extremely the left lower extremity and nonhealing wound with cellulitis.
Imaging as above.
Wound does not look infected. Mild cellulitis improved since admission. Discontinue vancomycin and Zosyn and monitor wound closely. Preoperative antibiotics as per vascular surgery.
Vascular surgery evaluation for left lower extremity femoropopliteal bypass tentatively on 10/01
He has been on anticoagulation with Eliquis [employer] for paroxysmal A-fib/flutter
Previously on Plavix
Continue statin
Will require pulmonary and cardiovascular clearance prior to intervention.
Chronic hypoxic/hypercarbic respiratory failure on home O2
COPD
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
Mild exacerbation
Noted to be bronchospastic on exam with productive cough.
Chest x-ray with no acute cardiopulmonary disease.
Initiated on dexamethasone 4 mg IV every 12 hours. Continue taper for
Continue inhaled corticosteroids and bronchodilators.
BiPAP at night as per pulmonary
Ongoing tobacco use. Counseled about quitting. Provide nicotine patch.
CAD.
Chronic CHF preserved EF.
Paroxysmal atrial fibrillation/flutter.
Weight noted to be up at 78 kg (71 likely dry weight)
Elevated pro CHF BNP close to baseline
No evidence for pulmonary or peripheral edema
Oxygen requirements close to baseline
Continue preadmission diuretic regimen Lasix 60 mg p.o. twice daily
Continue metoprolol, amiodarone, Lipitor.
Continue anticoagulation with Eliquis.
Type 2 diabetes
Hemoglobin A1c 6.7
Hold metformin acutely
Insulin basal bolus protocol with serial Accu-Cheks. Expected hyperglycemia given systemic steroid therapy
Chronic macrocytic anemia. Hemoglobin at the baseline.
History of gastrointestinal hemorrhage.
Monitor hemoglobin while on Eliquis
Continue PPI prophylaxis.
Full code
DVT prophylaxis Eliquis
Update 09/29 - switch to PO prednisone; Encouraged to use BiPAP as he had not again last night. Discontinue apixaban 48 hours preop, resume postop when okay from surgical standpoint
Anticipated Discharge: > 48 hours
Subjective/Interval History
-
Date of Service: September 29, 2025
no acute events, wheezing has improved
refused bipap again last night
Objective Data
-
Labs:
Laboratory Results
09/29/25
06:30
Sodium 139
Potassium 3.7
Chloride 86 L
Carbon Dioxide 40 H
BUN 17
Creatinine 0.8
Glucose 180 H
Calcium 9.4
Vital Signs:
Vital Signs
Temp Pulse Resp BP Pulse Ox
98.2 F 59 20 125/60 98
09/29/25 11:34 09/29/25 11:34 09/29/25 11:34 09/29/25 11:34 09/29/25 11:34
I&O
09/28/25 09/29/25 09/30/25
06:59 06:59 06:59
Intake Total 3790 / 3790 1680 / 1680
Output Total 2630 / 2630 3175 / 3175
Balance 1160 / 1160 -1495 / -1495
Review of Systems
-
History Source: Patient
All other systems: Not reviewed unless documented
Physical Exam
-
General: Well Developed and No Apparent Distress
HEENT: Normocephalic, Atraumatic and Moist Mucous Membranes
Respiratory: Rhonchi; Negative Wheezes
Cardiac: Regular Rhythm and S1/S2; Negative Murmur, Rub or Gallop
GI: Soft, Nontender, Nondistended and Normal Bowel Sounds; Negative Organomegaly
Rectal: Deferred by Provider
Musculoskeletal: No Clubbing, No Cyanosis and Other (Not palpable dorsal pedis and posterior tibial pulses. Left calf wound with dry eschar)
Skin: Negative Rash
Neuro: Nonfocal/Grossly Intact
Data Reviewed
-
Diagnostic Radiology: Report Reviewed by me
CT Scan: Report Reviewed by me
Labs: Labs Reviewed by me
[2025-09-29] MEDS: ELIQUIS 5 MG PO ×2 (13:34→19:58)
[2025-09-29] MEDS: DELTASONE 40 MG PO (13:34)
[2025-09-29 15:10] VITALS: BP 133/56
[2025-09-29 17:11] LABS: Glucose - Point of Care 283 mg/dl (70-99)
[2025-09-29] MEDS: NOVOLOG FLEXPEN-MODERATE RESISTANCE 5 UNITS SC (17:31)
[2025-09-29 19:40] VITALS: BP 141/55
[2025-09-29] MEDS: LIPITOR 80 MG PO (19:59)
[2025-09-29 21:12] LABS: Glucose - Point of Care 423 mg/dl (70-99)
[2025-09-29] MEDS: REQUIP 0.5 MG PO (21:39)
[2025-09-29 22:00] LABS: Glucose 446 mg/dl (70-99)
[2025-09-29] MEDS: NOVOLOG FLEXPEN 11 UNITS SC (22:29)
[2025-09-29 23:15] VITALS: BP 161/74
--- NOTE | 2025-09-30 00:05 | RESPNOTE ---
Patient refused to wear Bipap multiple times.
[2025-09-30 00:41] LABS: Glucose - Point of Care 260 mg/dl (70-99)
[2025-09-30 03:44] VITALS: BP 134/54
[2025-09-30 06:00] VITALS: BMI 24.7
[2025-09-30 07:20] VITALS: BP 162/77
[2025-09-30 07:33] LABS: Glucose - Point of Care 183 mg/dl (70-99)
[2025-09-30 07:40] LABS: Blood Urea Nitrogen 19 mg/dl (9-20); Calcium 9.7 mg/dl (8.4-10.2); Chloride 84 mmol/L (98-107); Estimated Creatinine Clearance 86 ml/min; Glucose 165 mg/dl (70-99); Potassium 4.3 mmol/L (3.5-5.1); Sodium 138 mmol/L (135-145); eGFR > 60.00
[2025-09-30] MEDS: NICODERM TRANSDERMAL 21 MG TRANSDERM (08:02)
[2025-09-30] MEDS: FOLVITE 1 MG PO (08:02)
[2025-09-30] MEDS: LASIX 60 MG PO ×2 (08:02→17:25)
[2025-09-30] MEDS: VITAMIN B1 100 MG PO (08:02)
[2025-09-30] MEDS: DELTASONE 40 MG PO (08:03)
[2025-09-30] MEDS: PACERONE 200 MG PO (08:03)
[2025-09-30] MEDS: NOVOLOG FLEXPEN-MODERATE RESISTANCE 1 UNITS SC (08:03)
[2025-09-30] MEDS: FEOSOL 325 MG PO (08:03)
[2025-09-30] MEDS: PROTONIX 40 MG PO (08:03)
[2025-09-30] MEDS: TOPROL XL 50 MG PO ×2 (08:03→19:49)
[2025-09-30 08:05] LABS: Carbon Dioxide 49 mmol/L (22-30)
[2025-09-30] MEDS: DUONEB 3 ML INH ×4 (08:40→20:06)
[2025-09-30] MEDS: PULMICORT 0.25 MG INH ×2 (08:40→20:06)
[2025-09-30 11:41] VITALS: BP 152/71
[2025-09-30 11:56] LABS: Glucose - Point of Care 253 mg/dl (70-99)
--- NOTE | 2025-09-30 12:30 | W.PN.HOSP.TC ---
Today's Communication/Plan
-
Hold Eliquis
BiPAP qhs
OR tomorrow
Assessment / Plan
Assessment / Plan
Impression
Presentation with worsening of left lower extremity pain and nonhealing wound.
Chronic limb threatening ischemia left lower extremity with nonhealing wound and mild cellulitis.
Mild COPD exacerbation (reports subjective dyspnea while on home O2, bronchospasm on exam)
Conditions prior to admission
PAD.
� Status post right femoral enterectomy with saphenous vein angioplasty and right femoral to popliteal bypass 08/16
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
COPD
History of recurrent right-sided pleural effusion requiring thoracentesis on multiple occasions. Path negative for malignancy
Pulmonary nodule under surveillance.
CAD.
� Status post remote CABG at [facility] with SHEEHAN to LAD
� PCI with unclear details at [facility]
�Out of the hospital STEMI alert 11/18 with no evidence of culprit lesion
Chronic CHF preserved EF
Paroxysmal atrial fibrillation/flutter
Chronic anticoagulation with Eliquis.
History of gastrointestinal bleed: EGD/colonoscopy 11/18 with angioectasia requiring APC and colon polyps
Chronic macrocytic anemia
Hypertension
Diabetes type 2
Hepatitis C treated and cleared infection
Ongoing tobacco use disorder
Imaging
Chest x-ray: No acute cardiopulmonary process
Arterial ultrasound:
1. Right lower extremity: KEREN 1.16, within normal limits. TBI mildly reduced 0.63, improved from prior study (0.53). Multiphasic common femoral and profunda waveforms. Femoral to posterior tibial artery bypass is patent with mild distal anastomotic
velocity elevation 158 cm/s (velocity ratio 2.43), possibly consistent with greater than 50% stenosis. Not significantly changed from prior study. Continuous Doppler waveforms at the posterior tibial artery are multiphasic, at the dorsalis pedis are
monophasic.
2. Left lower extremity: KEREN 0.67. Consistent with moderate arterial deficiency. However, on the prior study KEREN was not obtainable/measurable due to medial calcinosis/noncompressibility of the vessels. Therefore this value may be false. TBI is
0.16, severely reduced, but relatively stable compared to prior study (0.12). Severe left common femoral artery stenosis with likely occlusion, likely unchanged. Superficial femoral artery and popliteal artery appear occluded as well. Continuous
Doppler waveforms the dorsalis pedis and posterior tibial arteries are monophasic.
Abdominal CTA
1. Right leg: Patent right femoral to posterior tibial artery bypass graft redemonstrated.
2. Left leg: Patent stent in the left common femoral artery/profunda femoris. Superficial femoral artery is completely occluded throughout the proximal to mid segments with partial distal reconstitution, worsened compared to prior. The popliteal
artery shows complete occlusion, progressed in extent from prior. Occluded common tibioperoneal trunk, progressed. Below this, there is reconstitution with three-vessel proximal run off with scattered mild to moderate disease.
3. Mild soft tissue/skin irregularity along the posterior left lower extremity/lower calf region with underlying subcutaneous edema, suggesting cellulitis. No overt fluid collections identified.
Echocardiogram 11/18:
Normal left ventricular size and function. Mild concentric left ventricular
hypertrophy. Left ventricular ejection fraction is 50% by visual assessment.
There is basal inferior akinesis. Stage II diastolic dysfunction suggestive of
abnormal relaxation and increased filling pressures.
Mitral valve opens normally. Thickened mitral valve leaflets. Mitral annular
calcification. Trace mitral regurgitation is seen.
Mildly dilated left atrium.
Tricuspid valve opens normally. Mild tricuspid regurgitation. Estimated
pulmonary artery pressure of 44 mmHg. Assuming a right atrial pressure of 8
mmHg.
Dilated right atrium.
Enlarged right ventricular size. Right ventricular hypokinesis.
Since echocardiogram May 2024, there is no significant change.
Plan
PAD with chronic limb threatening extremely the left lower extremity and nonhealing wound with cellulitis.
Imaging as above.
Wound does not look infected. Mild cellulitis improved since admission. Discontinue vancomycin and Zosyn and monitor wound closely. Preoperative antibiotics as per vascular surgery.
Vascular surgery evaluation for left lower extremity femoropopliteal bypass tentatively on 10/01
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
Previously on Plavix
Continue statin
Will require pulmonary and cardiovascular clearance prior to intervention.
Chronic hypoxic/hypercarbic respiratory failure on home O2
COPD
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
Mild exacerbation
Noted to be bronchospastic on exam with productive cough.
Chest x-ray with no acute cardiopulmonary disease.
Initiated on dexamethasone 4 mg IV every 12 hours. Continue taper for
Continue inhaled corticosteroids and bronchodilators.
BiPAP at night as per pulmonary
Ongoing tobacco use. Counseled about quitting. Provide nicotine patch.
CAD.
Chronic CHF preserved EF.
Paroxysmal atrial fibrillation/flutter.
Weight noted to be up at 78 kg (71 likely dry weight)
Elevated pro CHF BNP close to baseline
No evidence for pulmonary or peripheral edema
Oxygen requirements close to baseline
Continue preadmission diuretic regimen Lasix 60 mg p.o. twice daily
Continue metoprolol, amiodarone, Lipitor.
Continue anticoagulation with Eliquis.
Type 2 diabetes
Hemoglobin A1c 6.7
Hold metformin acutely
Insulin basal bolus protocol with serial Accu-Cheks. Expected hyperglycemia given systemic steroid therapy
Chronic macrocytic anemia. Hemoglobin at the baseline.
History of gastrointestinal hemorrhage.
Monitor hemoglobin while on Eliquis
Continue PPI prophylaxis.
Full code
DVT prophylaxis Eliquis
Update 09/29 - switch to PO prednisone; Encouraged to use BiPAP as he had not again last night. Discontinue apixaban 48 hours preop, resume postop when okay from surgical standpoint
Update 09/30 - still refused BiPAP overnight; educated once again - RT spoke to patient. Spoke to vascular yesterday and Ok'd holding Eliquis starting this morning rather than yesterday 09/29
Anticipated Discharge: > 48 hours
Subjective/Interval History
-
Date of Service: September 30, 2025
no acute events; did not use BiPAP last night
Objective Data
-
Labs:
Laboratory Results
09/30/25
05:38
WBC Pending
Hgb Pending
Hct Pending
Plt Count Pending
Sodium 138
Potassium 4.3
Chloride 84 L
Carbon Dioxide 49 H
BUN 19
Creatinine 0.8
Glucose 165 H
Calcium 9.7
Vital Signs:
Vital Signs
Temp Pulse Resp BP Pulse Ox
98.2 F 57 20 152/71 97
09/30/25 11:41 09/30/25 11:41 09/30/25 11:41 09/30/25 11:41 09/30/25 11:41
I&O
09/29/25 09/30/25 10/01/25
06:59 06:59 06:59
Intake Total 1680 / 1680 960 / 960
Output Total 3175 / 3175 3225 / 3225
Balance -1495 / -1495 -2265 / -2265
Review of Systems
-
History Source: Patient
All other systems: Not reviewed unless documented
Physical Exam
-
General: Well Developed and No Apparent Distress
HEENT: Normocephalic, Atraumatic and Moist Mucous Membranes
Respiratory: Rhonchi; Negative Wheezes
Cardiac: Regular Rhythm and S1/S2; Negative Murmur, Rub or Gallop
GI: Soft, Nontender, Nondistended and Normal Bowel Sounds; Negative Organomegaly
Rectal: Deferred by Provider
Musculoskeletal: No Clubbing, No Cyanosis and Other (Not palpable dorsal pedis and posterior tibial pulses. Left calf wound with dry eschar)
Skin: Negative Rash
Neuro: Nonfocal/Grossly Intact
Data Reviewed
-
Diagnostic Radiology: Report Reviewed by me
CT Scan: Report Reviewed by me
Labs: Labs Reviewed by me
[2025-09-30 12:33] LABS: Hematocrit 46.8 % (39.0-52.0); Hemoglobin 14.7 g/dL (13.0-18.0); Mean Corp Hgb Conc. 31.4 g/dL (33.0-37.0); Mean Corpuscular Volume 99.6 fL (80.0-94.0); Platelet Count 365 10^3/uL (130-400); Red Cell Dist. Width 13.7 % (11.5-14.5)
[2025-09-30] MEDS: NOVOLOG FLEXPEN-MODERATE RESISTANCE 5 UNITS SC (12:46)
[2025-09-30 15:18] VITALS: BP 163/75
[2025-09-30 16:38] LABS: Glucose - Point of Care 490 mg/dl (70-99)
[2025-09-30 17:13] LABS: Glucose 383 mg/dl (70-99)
[2025-09-30] MEDS: NOVOLOG FLEXPEN-MODERATE RESISTANCE 9 UNITS SC (17:25)
[2025-09-30 19:21] VITALS: BP 141/66
[2025-09-30 19:36] LABS: Glucose - Point of Care 388 mg/dl (70-99)
[2025-09-30] MEDS: REQUIP 0.5 MG PO (21:00)
[2025-09-30] MEDS: LIPITOR 80 MG PO (21:00)
--- NOTE | 2025-09-30 23:00 | RESPNOTE ---
Patient refused to go on Bipap at this time.
[2025-09-30 23:04] VITALS: BP 148/64
[2025-09-30 23:54] LABS: Glucose - Point of Care 359 mg/dl (70-99)
[2025-10-01] VITALS (13 sets, daily range): BP systolic 136–182; BP diastolic 59–142; BMI 24.9; BMI 25.0
--- NOTE | 2025-10-01 00:05 | RESPNOTE ---
Patient has refused to go on Bipap for a 2nd time
--- NOTE | 2025-10-01 04:33 | PTCARENOTE ---
patient requesting to have something to drink. Patient was verbally reeducated on NPO status at 2400 for surgery. Pt stated, 'that is not what you told me.'. Multiple attempts were verbally made to remind patient of the NPO status ordered at 2400
for the scheduled surgery. Noted the patients urinal to be full and proceeded to empty the urinal.
Patient stated, 'Vickey An. That's it just walk away Mother Sheri.' Attempted to verbally redirect patient and reeducate patient on the importance of being NPO for the scheduled procedure.
[2025-10-01 06:22] LABS: Glucose - Point of Care 174 mg/dl (70-99)
[2025-10-01] MEDS: NOVOLOG FLEXPEN-MODERATE RESISTANCE 1 UNITS SC (06:29)
[2025-10-01 07:06] LABS: Hematocrit 49.1 % (39.0-52.0); Hemoglobin 15.2 g/dL (13.0-18.0); Mean Corp Hgb Conc. 31.0 g/dL (33.0-37.0); Mean Corpuscular Volume 99.6 fL (80.0-94.0); Platelet Count 372 10^3/uL (130-400); Red Cell Dist. Width 13.8 % (11.5-14.5)
[2025-10-01] MEDS: DUONEB 3 ML INH ×2 (07:10→11:02)
[2025-10-01] MEDS: PULMICORT 0.25 MG INH (07:10)
[2025-10-01 07:43] LABS: Blood Urea Nitrogen 21 mg/dl (9-20); Calcium 9.3 mg/dl (8.4-10.2); Chloride 88 mmol/L (98-107); Estimated Creatinine Clearance 86 ml/min; Glucose 180 mg/dl (70-99); Potassium 4.4 mmol/L (3.5-5.1); Sodium 138 mmol/L (135-145); eGFR > 60.00
[2025-10-01] MEDS: TOPROL XL 50 MG PO ×2 (07:53→21:42)
[2025-10-01] MEDS: PROTONIX 40 MG PO (07:53)
[2025-10-01] MEDS: VITAMIN B1 100 MG PO (07:53)
[2025-10-01] MEDS: NICODERM TRANSDERMAL 21 MG TRANSDERM (07:53)
[2025-10-01] MEDS: DELTASONE 40 MG PO (07:54)
[2025-10-01] MEDS: PACERONE 200 MG PO (07:54)
[2025-10-01] MEDS: LASIX 60 MG PO (07:54)
[2025-10-01] MEDS: FEOSOL 325 MG PO (07:54)
[2025-10-01] MEDS: FOLVITE 1 MG PO (07:54)
[2025-10-01 08:08] LABS: Carbon Dioxide 46 mmol/L (22-30)
--- NOTE | 2025-10-01 08:51 | W.PN.PUL.V3 ---
Today's Communication / Plan
-
Wean oxygen.
Prednisone 40 mg daily.
Nebulizers.
Cleared for proposed surgery
Assessment
-
74-year-old man with multiple medical problems. Advanced COPD. Chronic hypercapnic and hypoxemic respiratory failure. Coronary artery disease post bypass, peripheral vascular disease, ongoing smoking, alcohol abuse disorder. Admitted to the
hospital with lower extremity swelling, erythema, nonhealing ulcer. Known to have peripheral arterial disease. Evaluation by vascular surgery determined that patient would be candidate for bypass-we were consulted for preparatory assessment.
History of advanced/severe COPD with chronic hypercapnic respiratory failure FEV1 46%. Seen last time by Dr. Mckeon in the office 11/16/2024. Also with possible obstructive sleep apnea-sleep study has been recommended in the past. Lost
appointment after that.
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 FEV1 less than 50%.
Suspect chronic cor pulmonale based on echocardiogram 11/21/2024.
Chest x-ray 09/26/2025: No acute abnormalities.
Unable to perform 6-minute walk testing due to mobility issues.
Peripheral vascular disease: Nonhealing ulcer-plans for extraction of stent and lower extremity bypass.
Conditions present prior admission:
Hospital admission 11/2024 due to hypercapnic respiratory failure requiring intubation.
Chronic right pleural effusion: Chest tube placed 12/02/2024.
pH 7.51/white blood cells 480/93% mononuclear/glucose 170/total protein 3.1/LDH 176/ambulates 56/triglycerides under 30.
Negative cytology
Lung nodule 7.4 mm on CAT scan January 2024-due for repeat CT. Request given 11/16/2024.
Patient did not follow-up with CAT scan.
Active tobacco smoker-ongoing
EKG changes initially admitted as ST elevation myocardial infraction alert
s/p Cardiac catheterization 11/21/2024: Nonobstructive coronary artery disease. Elevated LVEDP at 19.
Advanced COPD due to tobacco use not in an acute exacerbation
Chronic hypoxemic respiratory failure -3 L of supplemental oxygen.
On Trelegy
Last seen by Dr. Mckeon 11/16/2024
PFT 2022 - 1.43L 46%
He was recommended to transition to nebulized therapy as unlikely to perform inhaler maneuver.
Paroxysmal A-fib/flutter on Eliquis
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
CAD s/p CABG
PAD with Hx of right femoral endarterectomy and femoral bypas.
DM type II (HbA1C: 7.5 on 08/19/2024)
Hepatic steatosis-mild ascites on ultrasound
History of hepatitis C
History of alcohol abuse-Patient states no longer using 12/02/2024
History of tobacco abuse patient states that no longer using 12/02/2024
Plan
Respiratory status is slowly improved.
Chronic hypercapnic respiratory failure-ABG 09/28/2025: 7.30
BiPAP at night 12/5 cm and during the daytime if needed
Supplemental oxygen if needed-patient on 2 L as an outpatient
Incentive spirometry.
Nebulizers-DuoNeb's.
Resume inhalers time of discharge
Prednisone 40 mg daily was slow taper..
Significant PAD.
Cleared for proposed surgery from a pulmonary perspective-moderate to high risk for pulmonary complications including atelectasis/prolonged mechanical ventilation, pneumonia, pulmonary embolism with general anesthesia, but not prohibitive
Smoking cessation counseling. Ongoing
Nicotine patch.
DVT prophylaxis-on Eliquis.
GI prophylaxis-on pantoprazole
Follow-up with Dr. Mckeon after discharge.
Dr. Mckeon has previously discussed with daughter and patient regarding DNR status. Remains full code.
Diagnostic Data
Chest x-ray 09/26/2025: Clear lungs.
CXR 12/06/24- The tip of the right-sided chest tube is at the lateral right base and there has been near complete resolution of the pleural fluid collection at the right lung base in the interval since the prior study. There is no pneumothorax
Chest X-Ray: 12/03/24- Right pleural pigtail catheter is present. Slight interval decrease in size of right pleural effusion. No evidence for significant pneumothorax.
CT chest 12/02/2024: Old right 4 through 11 rib fractures; Moderate to large right pleural effusion. Compressive atelectasis. No significant left pleural effusion. Small nodular opacity in the left upper lobe new compared to prior CAT scan.
Echo: 11/21/24- Normal left ventricular size and function. Mild concentric left ventricular hypertrophy. Left ventricular ejection fraction is 50% by visual assessment. There is basal inferior akinesis. Stage II diastolic dysfunction suggestive of
abnormal relaxation and increased filling pressures. Mitral valve opens normally. Thickened mitral valve leaflets. Mitral annular calcification. Trace mitral regurgitation is seen. Mildly dilated left atrium. Tricuspid valve opens normally. Mild
tricuspid regurgitation. Estimated pulmonary artery pressure of 44 mmHg. Assuming a right atrial pressure of 8 mmHg. Dilated right atrium. Enlarged right ventricular size. Right ventricular hypokinesis. Since echocardiogram May 2024, there is
no significant change.
.
Subjective Data
-
Date of Service:
Date of Service: October 01, 2025
Chief Complaint: Pulmonary Follow Up (Severe COPD-chronic shortness of breath.) and Dyspnea Follow Up
Subjective:
Denies any worsening shortness of breath, no chest pain, productive cough, mild chest congestion, no change in leg discomfort
Review of Systems
General: Other (. HPI)
Objective Data
Data Reviewed
Vital Signs / I&O:
Vital Signs
Temp Pulse Resp BP Pulse Ox
98.1 F 78 18 145/69 99
10/01/25 07:25 10/01/25 08:28 10/01/25 08:28 10/01/25 07:25 10/01/25 08:28
Intake and Output
09/30/25 10/01/25 10/02/25
06:59 06:59 06:59
Intake Total 960 / 960 1380 / 1380
Output Total 3225 / 3225 3345 / 3345
Balance -2264 / -2264 -1964 / -1964
SaO2: 99
Nasal Cannula flow liters per minute: 2
Physical Exam
General: Respiratory Distress (n), Comfortable (at rest) and Other (No acute distress)
HEENT: Normocephalic, Anicteric and Moist Mucous Membranes
Cardiovascular: Regular Rhythm
Respiratory: Clear, Non-Labored Respirations and Other (Prolonged expiratory phase)
GI: Soft and Non Distended
Neurology: Awake, Alert and No Motor Deficits
Skin: Warm, Good Color, Jaundice (n), Rash (n) and Other (Trace to +1 B/L LE edema. 3 inch lesion left calf with malodor)
Labs/Micro/Reports
Lab Data
10/01/25 06:18
10/01/25 06:18
--- NOTE | 2025-10-01 11:14 | CM ---
Patient seen bedside.
Patient for OR today.
Patient aware of CM availability should d//c needs arise.
CM will f/u post op.
Plan: OR today. d/c plan TBD.
[2025-10-01 11:53] LABS: Glucose - Point of Care 205 mg/dl (70-99)
[2025-10-01] MEDS: NOVOLOG FLEXPEN-MODERATE RESISTANCE 3 UNITS SC (13:46)
[2025-10-01] MEDS: BACTROBAN 2% OINTMENT 1 APPLIC NASAL (14:30)
--- NOTE | 2025-10-01 14:55 | W.PN.HOSP.TC ---
Today's Communication/Plan
-
Medically optimized for lower extremity bypass
Assessment / Plan
Assessment / Plan
Impression
Presentation with worsening of left lower extremity pain and nonhealing wound.
Chronic limb threatening ischemia left lower extremity with nonhealing wound and mild cellulitis.
Mild COPD exacerbation (reports subjective dyspnea while on home O2, bronchospasm on exam)
Conditions prior to admission
PAD.
� Status post right femoral enterectomy with saphenous vein angioplasty and right femoral to popliteal bypass 08/16
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
COPD
History of recurrent right-sided pleural effusion requiring thoracentesis on multiple occasions. Path negative for malignancy
Pulmonary nodule under surveillance.
CAD.
� Status post remote CABG at [facility] with SHEEHAN to LAD
� PCI with unclear details at [facility]
�Out of the hospital STEMI alert 11/18 with no evidence of culprit lesion
Chronic CHF preserved EF
Paroxysmal atrial fibrillation/flutter
Chronic anticoagulation with Eliquis.
History of gastrointestinal bleed: EGD/colonoscopy 11/18 with angioectasia requiring APC and colon polyps
Chronic macrocytic anemia
Hypertension
Diabetes type 2
Hepatitis C treated and cleared infection
Ongoing tobacco use disorder
Imaging
Chest x-ray: No acute cardiopulmonary process
Arterial ultrasound:
1. Right lower extremity: KEREN 1.16, within normal limits. TBI mildly reduced 0.63, improved from prior study (0.53). Multiphasic common femoral and profunda waveforms. Femoral to posterior tibial artery bypass is patent with mild distal anastomotic
velocity elevation 158 cm/s (velocity ratio 2.43), possibly consistent with greater than 50% stenosis. Not significantly changed from prior study. Continuous Doppler waveforms at the posterior tibial artery are multiphasic, at the dorsalis pedis are
monophasic.
2. Left lower extremity: KEREN 0.67. Consistent with moderate arterial deficiency. However, on the prior study KEREN was not obtainable/measurable due to medial calcinosis/noncompressibility of the vessels. Therefore this value may be false. TBI is
0.16, severely reduced, but relatively stable compared to prior study (0.12). Severe left common femoral artery stenosis with likely occlusion, likely unchanged. Superficial femoral artery and popliteal artery appear occluded as well. Continuous
Doppler waveforms the dorsalis pedis and posterior tibial arteries are monophasic.
Abdominal CTA
1. Right leg: Patent right femoral to posterior tibial artery bypass graft redemonstrated.
2. Left leg: Patent stent in the left common femoral artery/profunda femoris. Superficial femoral artery is completely occluded throughout the proximal to mid segments with partial distal reconstitution, worsened compared to prior. The popliteal
artery shows complete occlusion, progressed in extent from prior. Occluded common tibioperoneal trunk, progressed. Below this, there is reconstitution with three-vessel proximal run off with scattered mild to moderate disease.
3. Mild soft tissue/skin irregularity along the posterior left lower extremity/lower calf region with underlying subcutaneous edema, suggesting cellulitis. No overt fluid collections identified.
Echocardiogram 11/18:
Normal left ventricular size and function. Mild concentric left ventricular
hypertrophy. Left ventricular ejection fraction is 50% by visual assessment.
There is basal inferior akinesis. Stage II diastolic dysfunction suggestive of
abnormal relaxation and increased filling pressures.
Mitral valve opens normally. Thickened mitral valve leaflets. Mitral annular
calcification. Trace mitral regurgitation is seen.
Mildly dilated left atrium.
Tricuspid valve opens normally. Mild tricuspid regurgitation. Estimated
pulmonary artery pressure of 44 mmHg. Assuming a right atrial pressure of 8
mmHg.
Dilated right atrium.
Enlarged right ventricular size. Right ventricular hypokinesis.
Since echocardiogram May 2024, there is no significant change.
Plan
PAD with chronic limb threatening extremely the left lower extremity and nonhealing wound with cellulitis.
Imaging as above.
Wound does not look infected. Mild cellulitis improved since admission. Discontinue vancomycin and Zosyn and monitor wound closely. Preoperative antibiotics as per vascular surgery.
Vascular surgery evaluation for left lower extremity femoropopliteal bypass tentatively on 10/01
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
Previously on Plavix
Continue statin
Will require pulmonary and cardiovascular clearance prior to intervention.
Chronic hypoxic/hypercarbic respiratory failure on home O2
COPD
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
Mild exacerbation
Noted to be bronchospastic on exam with productive cough.
Chest x-ray with no acute cardiopulmonary disease.
Initiated on dexamethasone 4 mg IV every 12 hours. Continue taper for
Continue inhaled corticosteroids and bronchodilators.
BiPAP at night as per pulmonary
Ongoing tobacco use. Counseled about quitting. Provide nicotine patch.
CAD.
Chronic CHF preserved EF.
Paroxysmal atrial fibrillation/flutter.
Weight noted to be up at 78 kg (71 likely dry weight)
Elevated pro CHF BNP close to baseline
No evidence for pulmonary or peripheral edema
Oxygen requirements close to baseline
Continue preadmission diuretic regimen Lasix 60 mg p.o. twice daily
Continue metoprolol, amiodarone, Lipitor.
Continue anticoagulation with Eliquis.
Type 2 diabetes
Hemoglobin A1c 6.7
Hold metformin acutely
Insulin basal bolus protocol with serial Accu-Cheks. Expected hyperglycemia given systemic steroid therapy
Chronic macrocytic anemia. Hemoglobin at the baseline.
History of gastrointestinal hemorrhage.
Monitor hemoglobin while on Eliquis
Continue PPI prophylaxis.
Full code
DVT prophylaxis Eliquis
Anticipated Discharge: > 48 hours
Subjective/Interval History
-
Date of Service: October 01, 2025
Objective Data
-
Labs:
Laboratory Results
10/01/25
06:18
WBC 18.8 H
Hgb 15.2
Hct 49.1
Plt Count 372
Sodium 138
Potassium 4.4
Chloride 88 L
Carbon Dioxide 46 H
BUN 21 H
Creatinine 0.8
Glucose 180 H
Calcium 9.3
Vital Signs:
Vital Signs
Temp Pulse Resp BP Pulse Ox
98.7 F 67 18 154/73 92
10/01/25 11:01 10/01/25 11:01 10/01/25 11:01 10/01/25 11:01 10/01/25 11:01
I&O
09/30/25 10/01/25 10/02/25
06:59 06:59 06:59
Intake Total 960 / 960 1380 / 1380
Output Total 3225 / 3225 3345 / 3345
Balance -2265 / -2264 -1964 / -1964
Physical Exam
-
General: Well Developed and No Apparent Distress
HEENT: Normocephalic, Atraumatic and Moist Mucous Membranes
Respiratory: Rhonchi; Negative Wheezes
Cardiac: Regular Rhythm and S1/S2; Negative Murmur, Rub or Gallop
GI: Soft, Nontender, Nondistended and Normal Bowel Sounds; Negative Organomegaly
Rectal: Deferred by Provider
Musculoskeletal: No Clubbing, No Cyanosis and Other (Not palpable dorsal pedis and posterior tibial pulses. Left calf wound with dry eschar)
Skin: Negative Rash
Neuro: Nonfocal/Grossly Intact
[2025-10-01] MEDS: DUONEB INH ×2 (15:03→19:39)
--- NOTE | 2025-10-01 15:04 | W.SUR.PREOP ---
Pre-Operative Surgical Note
-
I have examined this patient prior to the performance of the scheduled procedure.
The patient's condition is unchanged from the time of the current History and
Physical and the patient is able to undergo the scheduled procedure.
--- NOTE | 2025-10-01 15:17 | PTCARENOTE ---
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 Seen by Daksha Riley and Gris. Second IV line started in LFA #18. Groins shaved, CHG wipes done. Sacral pad applied . VS WNL.
[2025-10-01 16:48] LABS: B.E. - POC 12.4 mmol/L; Glucose - POC 253 mg/dl (70-99); HCO3 - POC 37 mmol/L (21-28); Hematocrit - POC 46 % PCV (42-52); Hemodilution- POC Yes; Hemoglobin Calculated - POC 15.7; Ionized Calcium - POC 1.06 mmol/L (1.15-1.33); Lactate - POC 1.90 mmol/L (0.36-0.75); O2 Saturation %Calculated-POC 99.4 % (94-98); PCO2 - POC 44 mmHg (35-48); PO2 - POC 140 mmHg (83-108); Potassium - POC 4.1 mmol/L (3.5-5.1); Sodium - POC 141 mmol/L (136-145); Specimen Type - POC Arterial; pH - POC 7.53 (7.35-7.45)
[2025-10-01 18:20] LABS: Glucose - Point of Care 241 mg/dl (70-99)
[2025-10-01] MEDS: PULMICORT INH (19:39)
--- NOTE | 2025-10-01 20:06 | W.SUR.POST ---
Surgical Immediate Post Op
Note
Pre Op Diagnosis: PAD and non healing wound
Post Op Diagnosis: PAD and non healing wound
Procedure Performed: Left lower extremity profunda to PT arterial bypass with ipsilateral non reversed GSV
Primary Surgeon: Cl Riley MD
Enamel Finisher: Faith Madrigal ANCILLARY SERVICES MANAGER-C
Anesthesia: GETA
Estimated Blood Loss: 35 ml
Fluids: See anesthesia flowsheet
Drains/Shunts: N/A
Specimens/Cultures: None
Doppler/Duplex/Angio (Y/N):Y, doppler
Complications: None
Operative Findings: Successful arterial bypass with doppler signal PT post operative
--- NOTE | 2025-10-01 20:17 | OR.RPT ---
Operative Report
Operative Report
PROCEDURE DATE: 10/01/2025
Preoperative diagnosis: Chronic limb-threatening ischemia left lower extremity.
Postoperative diagnosis: Same
Procedure: Left femoral (profunda) to posterior tibial artery bypass with ipsilateral nonreversed greater saphenous vein conduit.
Surgeon: Osvaldo
It Auditor: Faith Madrigal NP, required for all aspects of procedure including assistance with traction/countertraction, following a suture line, assistance with closure.
Complications: None
Anesthesia: General
Indications for procedure:
Chronic limb threatening ischemia left lower extremity. Brought for revascularization. Risk/benefit/alternatives all fully discussed. Patient understood all wished to proceed. Of note he had had a prior common femoral artery stent in the left
common femoral artery extending into the profunda across an occluded superficial femoral artery. This was all placed prior to my meeting him. The SFA was chronically occluded. There is reconstituted tibial runoff.
Description of procedure:
Patient was identified brought to the operating room placed on the table in supine position. After the adequate administration of anesthesia he was prepped and draped in the standard surgical fashion. A standard preoperative timeout was undertaken
and everybody was in agreement the plan. A longitudinal incision was made in the left groin that was carried through skin subcutaneous tissue with the electrocautery. Any lymphatic type structures were ligated between silk ties and then divided.
Self-retaining retractors were then placed. I identified the common femoral artery as it emerged from underneath the inguinal ligament. There is actually a very high bifurcation of the common femoral artery. Therefore I quickly identified the
superficial femoral artery just beyond the main common femoral artery. This was noted to be severely calcified and nonpulsatile. I passed a vessel loop around it and it in order to facilitate retraction laterally. I then was able to dissect the
profunda. The profunda was dissected from just beyond its origin for several centimeters. I could palpate the stent within it. Just beyond the stent the artery softened. There is a pulse in the artery beyond the stent. Beyond here there was an
area of calcified eccentric plaque and then beyond here it was soft again. The profunda was circumferentially dissected proximally as well as distally, and branches were circumferentially dissected and Vesseloops passed around them as well. I now
tried to dissect up the common femoral artery. When I noted however was somewhat concerning and that the profunda and common femoral artery thayer were very thinned based on the fact that the stent had created an inflammatory reaction. As I tried
to dissect the more proximal profunda and the common femoral artery, I could note that the wall was very inflamed throughout. It felt very thinned to me as well. And then I dissected underneath the inguinal ligament after placing a retractor to
retract the inguinal ligament. I palpated the external iliac artery proximal to the medial circumflex iliac artery branch. I could palpate the end of the stent, and there was about half a centimeter if that of a soft zone before there was
calcified plaque again in the artery. Therefore I did not feel that there was really any room to safely clamp and so here. In addition given the thinness of the artery wall on the profunda, I felt that doing an endarterectomy and removing the
stent was actually more likely dangerous and that it would result in potential falling apart of the artery, and need for major reconstruction of the common femoral/profunda. Given that the stent was widely patent on CT scan imaging and there was a
pulse in the profunda beyond the stent, I felt therefore I would originate the bypass (take inflow) from the proximal profunda where it was soft.
Therefore at this point I then exposed the distal target. A medial incision was made in the proximal to mid calf about 1 fingerbreadth inferior to the tibia. (Longitudinal incision). This is carried through skin subcutaneous tissue. Of note his
skin was significantly diseased here with thickening/inflammatory rind type finding (he had chronic skin issues below the knee). After dissecting through the subcutaneous tissues, I incised the crural fascia. The soleus muscle was then divided off
the tibia. I then entered the deep posterior compartment. The posterior tibial vein and then artery were identified. The artery was noted to be soft. It was very small but it was soft artery with the Doppler signal. I carefully dissected its
anterior surface and then dissected proximally and distally a circumferential zone proximally and distally so that I could clamp the arteries there.
Now that had isolated the distal target, I turned my attention to harvesting the greater saphenous vein. I initiated the dissection of the greater saphenous vein in the groin incision. I then made skip incisions through the thigh to expose the
entirety of the greater saphenous vein. This dissection proved somewhat challenging in some areas especially into the mid to distal thigh and then below the knee where the vein was somewhat inflamed and stuck to the tissues around it making it more
challenging to dissect, and there was an abundance of branches that had to be ligated and then divided. I then mobilized the entirety of the dissected greater saphenous vein out of its bed by ligating any branches between silk ties and clips and
then dividing them. I dissected to about the transition from the proximal to mid calf. Here the vein became small and significantly branch. I did not feel it was for usable any further. I felt though that I had likely enough length. Once the
vein was fully mobilized out of its bed, I ligated distally with a heavy silk tie and a clip. I then transected. Proximally just distal to the saphenofemoral junction I placed a 2-0 silk suture ligature to ligate the vein there and placed a clip.
I then transected it. I then distended the vein under heparinized saline. Distended well. A couple small branch points were repaired with 7-0 Prolene suture.
At this point I created a subsartorial tunnel between the arterial exposure sites using a Adryan tunneler. Next the patient was given an appropriate dose of IV heparin. Next, I clamped the profunda proximally distally, and tightened the
Vesseloops on the branch. I then made an arteriotomy on the profunda and extended using a Yung scissor. On the medial aspect of the middle segment of this profundus that I exposed there was plaque. The lumen was not significantly compromised,
but there was some thickened plaque. In addition the remainder of the profunda wall was relatively thinned. Therefore I debated endarterectomized and this plaque. However I was really concerned about how thin the wall was and that it may fall
apart on me. Therefore I elected to maintain the plaque medially and try to sew to this vessel. I therefore then spatulated the vein (maintaining it in a nonreversed fashion) and sewed an end to side anastomosis to the profunda. I did use a
combination of standard 6-0 Prolene running suture as well as 7-0 Prolene VISI black (penetrated the calcified plaque better). I then completed and tied down the suture line. Next I released flow in the profunda by releasing the clamps. There was
now good pulsatile flow into the vein graft. Now I used a Mismi valvulotome to thoroughly valvulotomize the vein graft. Once I completed this there is now pulsatile flow throughout the vein graft. I then marked the anterior surface of the graft
under distention to avoid any kinking or twisting, and then passed it through the tunnel. I confirm no kinking or twisting. There was still good pulsatile flow. I now placed a bulldog clamp on the vein graft. I reexposed the posterior tibial
artery. I then placed Yasargil clips on the posterior tibial artery proximally distally. I made an arteriotomy on the posterior tibial artery with a [place] blade and extended using a micro Yung scissor. I then spatulated the distal aspect of the
vein graft and sewed an end to side anastomosis using a running 7-0 Prolene suture. This was somewhat challenging due to the small stature of the artery. Prior to completing and tying down my suture line I backbled the confed[place] g[place] artery, flushed out
the vein graft, and then flushed heparinized saline. I then completed and tied on the suture line. Next I released the proximal Yasargil clip on the posterior tibial artery, and then released the bulldog clamp on the vein graft, and finally
released the outflow Yasargil clip on the posterior tibial artery. There was a small bleeding point in the crotch of the anastomosis that I repaired with a single 7-0 Prolene suture. Hemostasis was now fully achieved there. There is excellent
pulsatile flow in the vein graft and into the posterior tibial artery beyond the anastomosis. There is a good Doppler signal that was significantly graft augmented in the posterior tibial artery beyond the anastomosis, and there was a good Doppler
signal in the posterior tibial artery at the ankle. At this point I was very satisfied.
All incision sites were copiously irrigated and meticulous hemostasis was achieved throughout. All incision sites were closed using layered Vicryl suture (2-0 Vicryl as needed, 3-0 Vicryl deep dermal layer) and then skin clips were placed for the
skin. Dressings were applied. The patient tolerated the procedure well. All sponge, needle, instrument counts were correct at the end of the case. Patient was transferred to the recovery room in stable condition.
[2025-10-01 20:27] LABS: Glucose - Point of Care 243 mg/dl (70-99)
[2025-10-01] MEDS: SUBLIMAZE 50 MCG IV (20:31)
[2025-10-01] MEDS: NOVOLOG vial 2 UNITS SC (20:47)
[2025-10-01 20:57] LABS: Hematocrit 50.5 % (39.0-52.0); Hemoglobin 15.8 g/dL (13.0-18.0); Mean Corp Hgb Conc. 31.3 g/dL (33.0-37.0); Mean Corpuscular Volume 100.0 fL (80.0-94.0); Platelet Count 348 10^3/uL (130-400); Red Cell Dist. Width 13.8 % (11.5-14.5)
[2025-10-01 21:00] LABS: Blood Urea Nitrogen 19 mg/dl (9-20); Calcium 8.4 mg/dl (8.4-10.2); Chloride 93 mmol/L (98-107); Estimated Creatinine Clearance 86 ml/min; Glucose 265 mg/dl (70-99); Potassium 4.5 mmol/L (3.5-5.1); Sodium 134 mmol/L (135-145); eGFR > 60.00
[2025-10-01 21:24] LABS: Carbon Dioxide 37 mmol/L (22-30)
[2025-10-01 21:29] LABS: Glucose - Point of Care 278 mg/dl (70-99)
[2025-10-01] MEDS: NSS 1000 IV (21:34)
[2025-10-01] MEDS: NOVOLOG FLEXPEN-MODERATE RESISTANCE SC (21:35)
[2025-10-01] MEDS: LASIX PO (21:42)
[2025-10-01] MEDS: LIPITOR 80 MG PO (21:43)
[2025-10-01] MEDS: REQUIP 0.5 MG PO (21:43)
[2025-10-01] MEDS: NOVOLOG FLEXPEN 7 UNITS SC (21:54)
[2025-10-01 22:04] LABS: Magnesium 2.1 mg/dl (1.6-2.3)
--- NOTE | 2025-10-01 22:27 | PTCARENOTE ---
Pt received from PACU ~2114. HR SR on telemetry. AAOx3, following commands and responding appropriately. L radial a-line zeroed. L DP and PT pulses present with doppler. No change in sensation per pt. Pt denying any pain - rating it 0/10. LLE
dressings with scant bloody drainage. Anderson draining clear yellow urine. NC 2L, POX 94%. NSS as ordered. Blood glucose elevated - BOAT DOCK OPERATOR aware, 7u additional coverage ordered and administered (see MAR). Posterior LLE extremity wound cleansed with
saline, silicone border foam placed over.
[2025-10-02] VITALS (15 sets, daily range): BP systolic 112–145; BP diastolic 52–89; BMI 25.0
[2025-10-02 01:00] LABS: Glucose - Point of Care 180 mg/dl (70-99)
[2025-10-02] MEDS: NOVOLOG FLEXPEN-MODERATE RESISTANCE SC (01:05)
[2025-10-02] MEDS: NOVOLOG FLEXPEN 2 UNITS SC (01:06)
--- NOTE | 2025-10-02 02:16 | PTCARENOTE ---
PT and DP pulses remain present with doppler. No further drainage on dressings at incision sites. No tense edema. Pt states he is upset at the prospect of having to stay any longer in the hospital. Frequent expletives used by patient while
describing his predicament. Therapeutic speech utilized.
Blood glucose 180 on recheck - SUPERVISOR OVENS aware, 2u novolog ordered and administered (see MAR)
[2025-10-02 03:48] LABS: Hematocrit 44.8 % (39.0-52.0); Hemoglobin 14.4 g/dL (13.0-18.0); Mean Corp Hgb Conc. 32.1 g/dL (33.0-37.0); Mean Corpuscular Volume 98.9 fL (80.0-94.0); Platelet Count 321 10^3/uL (130-400); Red Cell Dist. Width 13.9 % (11.5-14.5)
[2025-10-02 03:56] LABS: INR 0.99; PT 13.2 Sec (11.4-14.6)
[2025-10-02 03:57] LABS: APTT 23.1 Sec (23.4-35.0)
[2025-10-02 04:14] LABS: Blood Urea Nitrogen 20 mg/dl (9-20); Calcium 8.7 mg/dl (8.4-10.2); Chloride 95 mmol/L (98-107); Estimated Creatinine Clearance 98 ml/min; Glucose 141 mg/dl (70-99); Potassium 4.5 mmol/L (3.5-5.1); Sodium 135 mmol/L (135-145); eGFR > 60.00
[2025-10-02] MEDS: DILAUDID 0.5 MG IV ×2 (04:35→15:55)
[2025-10-02 04:45] LABS: Carbon Dioxide 38 mmol/L (22-30)
[2025-10-02] MEDS: NOVOLOG FLEXPEN-HIGH RESISTANCE 2 UNITS SC (06:03)
[2025-10-02 06:05] LABS: Glucose - Point of Care 155 mg/dl (70-99)
--- NOTE | 2025-10-02 06:12 | PTCARENOTE ---
PRN pain management - see MAR. Small amount of new drainage now present on LLE dressings. No hematoma. PT and DP pulses remain present with doppler.
[2025-10-02] MEDS: DUONEB 3 ML INH ×4 (07:26→19:18)
[2025-10-02] MEDS: PULMICORT 0.25 MG INH ×2 (07:26→19:18)
[2025-10-02 07:45] LABS: Glucose - Point of Care 138 mg/dl (70-99)
[2025-10-02] MEDS: HEPARIN 25000 UNITS/250 ML IV (08:09)
[2025-10-02] MEDS: TOPROL XL 50 MG PO ×2 (08:14→21:49)
[2025-10-02] MEDS: PACERONE 200 MG PO (08:14)
[2025-10-02] MEDS: VITAMIN B1 100 MG PO (08:15)
[2025-10-02] MEDS: DELTASONE 40 MG PO (08:15)
[2025-10-02] MEDS: PROTONIX 40 MG PO (08:15)
[2025-10-02] MEDS: FEOSOL 325 MG PO (08:15)
[2025-10-02] MEDS: SENOKOT-S 1 TABLET PO (08:15)
[2025-10-02] MEDS: LASIX 60 MG PO ×2 (08:15→15:57)
[2025-10-02] MEDS: FOLVITE 1 MG PO (08:15)
[2025-10-02] MEDS: NICODERM TRANSDERMAL 21 MG TRANSDERM (08:16)
--- NOTE | 2025-10-02 08:16 | W.PN.VS ---
Addendum entered and electronically signed by Hipolito Anderson III, MD 10/02/25 11:50:
This patient was seen and examined in collaboration with JUAN Balbuena. I agree with the history and physical exam as well as the assessment and plan.
Signed:
Hipolito Anderson III, MD
Vascular Surgery
[facility]
Original Note:
Today's Communication / Plan
-
Seen and assessed with Dr. Anderson
Assessment/Plan
-
Postop day 1 Left femoral (profunda) to posterior tibial artery bypass with ipsilateral nonreversed greater saphenous vein conduit
Plan:
DC A-line
DC IV fluids
Continue heparin at ordered rate for today
Out of bed to chair and MARIO Anderson this afternoon*
Increase diet
P.o. medications
PT/OT tomorrow
Subjective Data
-
Date of Service: October 02, 2025
Patient seen at bedside this a.m. with Dr. Anderson. Patient resting comfortably in bed. No events overnight.
Objective Data
-
Vital Signs
Temp Pulse Resp BP Pulse Ox
97.7 F 60 15 115/54 93
10/02/25 07:59 10/02/25 07:28 10/02/25 07:28 10/02/25 04:00 10/02/25 07:28
Intake and Output
10/01/25 10/02/25 10/03/25
06:59 06:59 06:59
Intake Total 1380 / 1380 1155 / 1235 80 / 80
Output Total 3345 / 3345 1285 / 1360 75 / 75
Balance -1965 / -1965 -130 / -125 5 / 5
Intake:
Oral fluids 1380 / 1380 360 / 360
IV fluids (Total) 795 / 875 80 / 80
NSS 720 / 800 80 / 80
normso 75 / 75
Output:
Urine, Anderson 1285 / 1360
Urine, Voided 3345 / 3345
Lab Results
10/02/25 03:37
10/02/25 03:37
Calcium 8.7 mg/dl (8.4-10.2) 10/02/25 03:37
Phosphorus 2.9 mg/dl (2.5-4.5) 10/01/25 20:39
Magnesium 2.1 mg/dl (1.6-2.3) 10/01/25 20:39
Total Bilirubin 0.6 mg/dl (0.2-1.3) 09/26/25 13:34
AST 21 U/L (17-59) 09/26/25 13:34
ALT 15 U/L (0-50) 09/26/25 13:34
Alkaline Phosphatase 112 U/L (38-126) 09/26/25 13:34
Total Protein 7.1 g/dl (6.3-8.2) 09/26/25 13:34
Albumin 4.0 g/dl (3.5-5.0) 09/26/25 13:34
Physical Exam
-
AAO x 3
No tachypnea on 2 L nasal cannula
No tachycardia
Abdomen soft
Left lower extremity dressing sites all intact, scant drainage circled on dressings
All compartments soft
Excellent PT Doppler
--- NOTE | 2025-10-02 08:25 | W.PN.INTV ---
Today's Communication / Plan
Recommendations
DuoNebs + budesonide
Pain control
Postoperative management as per vascular surgery
Nicotine patch
Heparin drip
Prednisone with slow taper
Continue ICU level of care given q1hr neurovascular checks of LLE
Assessment
-
74-year-old man with multiple medical problems. Advanced COPD. Chronic hypercapnic and hypoxemic respiratory failure. Coronary artery disease post bypass, peripheral vascular disease, ongoing smoking, alcohol abuse disorder. Admitted to the
hospital with lower extremity swelling, erythema, nonhealing ulcer. Known to have peripheral arterial disease. Evaluation by vascular surgery determined that patient would be candidate for bypass-we were consulted for preparatory assessment.
History of advanced/severe COPD with chronic hypercapnic respiratory failure FEV1 46%. Seen last time by Dr. Mckeon in the office 11/16/2024. Also with possible obstructive sleep apnea-sleep study has been recommended in the past. Lost
appointment after that.
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 FEV1 less than 50%.
Suspect chronic cor pulmonale based on echocardiogram 11/21/2024.
Chest x-ray 09/26/2025: No acute abnormalities.
Unable to perform 6-minute walk testing due to mobility issues.
Peripheral vascular disease with chronic left limb ischemia s/p left femoral (profunda) to posterior tibial artery bypass with ipsilateral nonreversed greater saphenous vein conduit (POD#1)
Conditions present prior admission:
Hospital admission 11/2024 due to hypercapnic respiratory failure requiring intubation.
Chronic right pleural effusion: Chest tube placed 12/02/2024.
pH 7.51/white blood cells 480/93% mononuclear/glucose 170/total protein 3.1/LDH 176/ambulates 56/triglycerides under 30.
Negative cytology
Lung nodule 7.4 mm on CAT scan January 2024-due for repeat CT. Request given 11/16/2024.
Patient did not follow-up with CAT scan.
Active tobacco smoker-ongoing
EKG changes initially admitted as ST elevation myocardial infraction alert
s/p Cardiac catheterization 11/21/2024: Nonobstructive coronary artery disease. Elevated LVEDP at 19.
Advanced COPD due to tobacco use not in an acute exacerbation
Chronic hypoxemic respiratory failure 2-3 L of supplemental oxygen.
On Trelegy
Last seen by Dr. Mckeon 11/16/2024
PFT 2022 - 1.43L 46%
He was recommended to transition to nebulized therapy as unlikely to perform inhaler maneuver.
Paroxysmal A-fib/flutter on Eliquis
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
CAD s/p CABG
PAD with Hx of right femoral endarterectomy and femoral bypas.
DM type II (HbA1C: 7.5 on 08/19/2024)
Hepatic steatosis-mild ascites on ultrasound
History of hepatitis C
History of alcohol abuse-Patient states no longer using 12/02/2024
History of tobacco abuse patient states that no longer using 12/02/2024
Plan
Postoperative surgical intensive care unit monitoring
Supplemental oxygen as needed to maintain SpO2 88-95%; patient on 2 L as an outpatient
prn nebulized bronchodilators -not currently bronchospastic
Incentive spirometry encouraged 10x per hour for at least 4 hrs a day
Aspiration precautions
Pain control
Ideally, patient should be using BiPAP with sleep due to chronic hypercapnia - he has been refusing to wear
Nebulizers-DuoNebs
Resume inhalers time of discharge
Prednisone 40 mg daily was slow taper
Neuro and vascular checks per protocol
Maintain MAP>65
Replete electrolytes with K>4, Mg>2
Maintain euglycemia with goal BG 140-180
Vascular surgery following-correspondence and operative notes reviewed
Transfuse blood products as needed to keep Hb>7g/dL, and plt>50k (given post-operative status)
Smoking cessation counseling. Ongoing
Nicotine patch.
DVT prophylaxis
Early nutrition
Early mobilization
Follow-up with Dr. Mckeon after discharge.
Dr. Mckeon has previously discussed with daughter and patient regarding DNR status. Remains full code.
Critical care statement: A total of 38 minutes of critical care time was provided for this patient today. This includes management of unstable vital signs, evaluation of the patient at bedside, reviewing the patient's pertinent medical records
including radiographs, microbiology, laboratory evaluations, and discussion with primary team, consultants, pharmacy, nutrition, physical therapy, case management, charge nurse, critical care nursing, and respiratory therapy.
Diagnostic Data
Chest x-ray 09/26/2025: Clear lungs.
CXR 12/06/24- The tip of the right-sided chest tube is at the lateral right base and there has been near complete resolution of the pleural fluid collection at the right lung base in the interval since the prior study. There is no pneumothorax
Chest X-Ray: 12/03/24- Right pleural pigtail catheter is present. Slight interval decrease in size of right pleural effusion. No evidence for significant pneumothorax.
CT chest 12/02/2024: Old right 4 through 11 rib fractures; Moderate to large right pleural effusion. Compressive atelectasis. No significant left pleural effusion. Small nodular opacity in the left upper lobe new compared to prior CAT scan.
Echo: 11/21/24- Normal left ventricular size and function. Mild concentric left ventricular hypertrophy. Left ventricular ejection fraction is 50% by visual assessment. There is basal inferior akinesis. Stage II diastolic dysfunction suggestive of
abnormal relaxation and increased filling pressures. Mitral valve opens normally. Thickened mitral valve leaflets. Mitral annular calcification. Trace mitral regurgitation is seen. Mildly dilated left atrium. Tricuspid valve opens normally. Mild
tricuspid regurgitation. Estimated pulmonary artery pressure of 44 mmHg. Assuming a right atrial pressure of 8 mmHg. Dilated right atrium. Enlarged right ventricular size. Right ventricular hypokinesis. Since echocardiogram May 2024, there is
no significant change.
.
Subjective Dataa
Subjective Data
Date of Service:
Date of Service: October 02, 2025
Chief Complaint: Occupational Therapy Co Director Follow Up
Subjective:
Patient was seen and evaluated today at bedside. Doing well. Has pain at the left leg but otherwise breathing comfortably with no chest pain. Although nasal cannula is on his head, he does not attach to his nostrils.
Review of Systems
General: Other (Negative unless mentioned above)
Objective Data
Data Reviewed
Vital Signs / I&O / Oxygen:
Vital Signs
Temp Pulse Resp BP Pulse Ox
97.1 F 75 16 140/64 93
10/02/25 16:00 10/02/25 18:15 10/02/25 18:15 10/02/25 17:00 10/02/25 18:15
Intake and Output
10/01/25 10/02/25 10/03/25
06:59 06:59 06:59
Intake Total 1380 / 1380 1155 / 1235 295 / 295
Output Total 3345 / 3345 1285 / 1360 1525 / 1525
Balance -1965 / -1965 -130 / -125 -1230 / -1230
SaO2 93
Nasal Cannula flow liters per 2
minute
Physical Exam
General: Respiratory Distress (n), Comfortable, Chills (n) and Sweats (n)
HEENT: Normocephalic and Anicteric
Cardiovascular: S1-S2 and Peripheral Edema (Trace bilateral lower extremity edema)
Respiratory: Wheeze (n), Crackles (n), Rhonchi (n), Non-Labored Respirations and Other (Prolonged expiratory phase)
GI: Soft, Non Distended, Non Tender and Normal Bowel Sounds
Neurology: Awake, Alert, Oriented and Tremors (n)
Skin: Warm, Dry, Cyanosis (n) and Jaundice (n)
Labs/Micro/Reports
Lab Data
10/02/25 03:37
10/02/25 03:37
Laboratory Results
10/01/25 10/02/25
21:23 03:37
PT Cancelled 13.2
INR Cancelled 0.99
APTT Cancelled 23.1 L
--- NOTE | 2025-10-02 09:00 | PTCARENOTE ---
Received patient resting in bed. A.O x4. Asking when he will be going home. Patient verbalized frustrations about being in the hospital. Emotional support provided. All questions answered. Reports zero pain to LLE. Neurovascular checks unchanged;
doppler pulses present. 2L NC in place; pt states he uses 02 HS intermittently at home. Lungs with wheezing throughout; pt states this is normal for him. Reports current smoker. Incision dressings with old bloody drainage; areas are marked and
outlined. A-line flushed and zeroed. Anderson with adequate UO. +BS. Patient has not had a BM in several days. PRN Senna provided. Reports +flatus. NSR on telemetry. Assisting with repositioning in bed. Heparin gtt at 500unit/hr. NSS @ 80mL/hr. PIVs
flushed and dressing intact. Pt able to order breakfast himself. No issues swallowing.
Call liu within reach.
--- NOTE | 2025-10-02 09:20 | W.PN.CARDCBS ---
Today's Communication / Plan
-
Transition from heparin drip to Eliquis when safe from surgery standpoint
Stable cardiac status, we will sign off, please recall as needed
Impression / Plan
-
Dr. Modesta Pretty
Subgrade Tester: Dr Riggs
Impression:
Admitted with LLE wound and pain 09/26/2025
Occluded left SFA with limb threatening ischemia and chronic left lower extremity wound
PAD
s/p right femoral endarterectomy with saphenous vein angioplasty and right femoral to PT bypass 07/1123
Left TOUCH UP EDGER stent patent, left FA occlusion, left popliteal artery occlusion 09/27/2025
Chronic Hypoxemic and Hypercapnic Respiratory Failure
Chronic HFpEF
COPD
h/o right pleural effusion/status post chest tube
s/p right sided thora for 1.9 L 11/21/24 and eventual right chest tube placement to 825 resulting in successful drainage of previously loculated effusion
No evidence of recurrent pleural effusion on CXR 09/26/2025
CAD
s/p remote CABG at [facility] with SHEEHAN to LAD
PCI with unclear details at [place]
Out of hospital STEMI alert 11/21/2024, no evidence of culprit lesion by cardiac cath to explain patient's presentation
h/o GI bleed/macrocytic anemia
s/p EGD/colon 11/24/24 with 1 angioectasia status post APC, and 3 colon polyp status post removal but no clear etiology of acute anemia
History of CVA 2010
Paroxysmal atrial fibrillation/flutter
Chronic Eliquis OAC
Chronic amiodarone therapy
Poor medical compliance
HTN
HLD
DM2
Hep C, treated and cleared infection
Ongoing tobacco use
h/o bedbugs 05/2024 admission
Dobutamine nuclear stress test 07/29/23 finds large inferior and basal inferior septal infarct without stephanie-infarct ischemia. Baseline LVEF 43%
Echo 07/28/23 finds normal LV size and function with LVEF in the low normal range estimated at 51% with basal to mid inferior wall severe hypokinesis. No significant valvular disease.
Echo 06/12/24: EF 50%, basal inferior wall hypokinetic on parasternal short axis views, RV mildly dilated, mildly dilated RA, no significant valvular disease noted
Echo 11/13/24: EF 50%, stage II diastolic dysfunction, trace MR, mild TR with PAP 44 mmHg no
Echo 11/21/24: Ejection fraction 50%, basal inferior akinesis, mild TR, PA systolic 44 mmHg, enlarged right ventricle with right ventricular hypokinesis
Echo 09/27/2025: EF 50-55%,mild LVH, basal inferior, basal inferolateral and apical septal hypokinesis, normal left atrium. MAC, no MR, aortic sclerosis, mild RV hypokinesis, normal right heart, could not determine pulmonary artery pressure
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
haziness in distal vessel with DIMITRI-3 flow, no vein graft identified
Impression:
Plan:
-Admitted 09/26/2025 with LLE wound concerning for cellulitis and ischemic changes with nonpalpable distal pulses and found to have progression of left lower extremity PAD including occluded SFA as well as stenosis in profunda beyond previously
placed common femoral stent on imaging and vascular surgery now recommending bypass for limb salvage with removal of common femoral stent with past angioplasty/profundoplasty tentatively planned for 10/01/2025. Cardiology saw for pre-operative
evaluation
-Doing well postoperatively, no cardiac complaints
-History of pAFib, but currently maintaining sinus rhythm on review of telemetry
-Continue home amiodarone and metoprolol
-Currently on heparin drip, will transition back to p.o. Eliquis 5 mg twice daily when safe from surgery standpoint
-History of heart failure with preserved ejection fraction
-Appears euvolemic on exam
-Continue home dosing of Lasix p.o. 60 mg twice daily
Stable cardiac status, we will sign off, please recall as needed
[facility] 09/27/2025:
Patient came to the ER yesterday with increasing pain of LLE wound and was admitted with possible limb ischemia and cardiology is now consulted for preoperative cardiovascular risk stratification. Patient has known PAD with previous right sided
peripheral bypass in 2022. Patient has also had left TOUCH UP EDGER stent in the past. Patient lives with his nephew and misses most if not all of his outpatient appointments, but says he is compliant with medications. Patient has not been seen by vascular
surgery in the office for almost a year and reports his wound has been present for months. There is malodor upon walking into the room and a left distal calf wound on examination. Vascular surgery note reviewed by me and they are recommending
peripheral bypass. Patient reports despite LLE wound he is still active in the home and has a bedroom on the second floor causing him to go up and down the stairs on a daily basis and he denies any chest pain or SOB with this. Patient is also
independent with all ADLs and ambulates without an assistive device and denies any chest pain or SOB with ambulation. Patient has known CAD with previous CABG at [place] and then had a PCI at [facility] at a later date and the details have never been
discovered. Most recently on 11/21/2024 the patient was an [id number] STEMI alert, but when taken to the Bowling Floor Manager no culprit lesion could be identified. Patient then noted to have evidence of GI bleed and was treated with APC and polypectomy.
Patient did not follow-up in the cardiology office. Patient also has known paroxysmal A-fib, but is generally in SR with amiodarone 200 mg daily. Patient also takes Eliquis 5 mg BID and says he is compliant with this.
Progress Note - Subgrade Tester
Subjective
Date of Service: October 02, 2025
No acute overnight events. Patient is resting comfortably in bed in the ICU. No cardiac complaints including no chest pain, shortness of breath or palpitations. Main concern is that food quality is poor here.
Objective
Labs:
10/02/25 03:37
10/02/25 03:37
Labs
Hgb 14.4 g/dL (13.0-18.0) 10/02/25 03:37
Hct 44.8 % (39.0-52.0) 10/02/25 03:37
Plt Count 321 10^3/uL (130-400) 10/02/25 03:37
PT 13.2 Sec (11.4-14.6) 10/02/25 03:37
INR 0.99 10/02/25 03:37
APTT 23.1 Sec (23.4-35.0) L 10/02/25 03:37
Sodium 135 mmol/L (135-145) 10/02/25 03:37
Potassium 4.5 mmol/L (3.5-5.1) 10/02/25 03:37
BUN 20 mg/dl (9-20) 10/02/25 03:37
Creatinine 0.7 mg/dL (0.7-1.3) 10/02/25 03:37
Glucose 141 mg/dl (70-99) H 10/02/25 03:37
Vital Signs and I&O:
Vital Signs
Temp Pulse Resp BP Pulse Ox
97.7 F 59 27 135/57 97
10/02/25 07:59 10/02/25 08:15 10/02/25 08:15 10/02/25 08:00 10/02/25 08:39
Vital Signs
Temp Pulse Resp BP Pulse Ox
97.7 F 59 27 135/57 97
10/02/25 07:59 10/02/25 08:15 10/02/25 08:15 10/02/25 08:00 10/02/25 08:39
Intake & Output
09/30/25 10/01/25 10/02/25 10/03/25
06:59 06:59 06:59 06:59
Intake Total 960 / 960 1380 / 1380 1155 / 1235 165 / 165
Output Total 3225 / 3225 3345 / 3345 1285 / 1360 200 / 200
Balance -2265 / -2265 -1965 / -1965 -130 / -125 -35 / -35
Physical Exam
Physical Exam
Gen: NAD, AA
HEENT: NC/AT, sclera anicteric
Neck: No JVD
CV: RRR, NL s1/s2
Lungs: CTAB
Abd: S/ND
Ext: No LE edema
Skin: Warm, dry
Neuro: Non-focal
--- NOTE | 2025-10-02 10:26 | WOUNDNOTE ---
L POSTERIOR LOWER LEG
--- NOTE | 2025-10-02 10:28 | WOUNDNOTE ---
WON RN note: Patient admitted with Chronic L leg wound, cellulitis and PVD.
See H&P for complete history. Lives with nephew.
PMH: CHF,HEP C, PVD,CAD, NIDDM, CABG, R femoral bypass 2022, cardiac stents,smoker, venous leg ulcers.
Wound Location and type/assessment: Patient known to service, last seen 12/04/24 for venous ulcers of L leg. Now admitted s/p L fem-post tibial bypass done by Dr. Riley on 10/01. TBI was 0.16 on L leg. L posterior lateral lower leg with dry raised
crusty venous ulcer. Patient states he does no wound care and does not use compression. Both legs very dry, + pulses audible with Doppler. Patient turned self to side, log rolled, heels intact. Peeled back sacral silicone foam, skin blanchable red.
Previous ulcer on L buttock from last admission has healed.
Appetite: Good.
Pressure redistribution devices in place: Air mattress or air overlay recommended if patient not ad carmel. Pillow under calves to offload heels. Leg elevation when sitting.
Plan: Local wound care done on L leg, adaptic and Silicone foam applied. Will order mineral oil to start tomorrow for legs. Continue sacral silicone foam for protection.
Will confirm orders with hospitalist and updated nurse. Updated care plan and will follow as needed.
Note to case management of equipment requested for discharge: None.
Recommend follow up with Dr. Riley upon discharge.
--- NOTE | 2025-10-02 11:00 | PTCARENOTE ---
A-line removed w/o issues. IVF discontinued.
Pt will order lunch himself. Brushed teeth.
Neurovascular checked unchanged; Doppler pedal pulses present.
Call liu within reach.
[2025-10-02] MEDS: TYLENOL 650 MG PO (12:07)
[2025-10-02 12:34] LABS: Glucose - Point of Care 260 mg/dl (70-99)
--- NOTE | 2025-10-02 13:02 | PTCARENOTE ---
Patient assisted into chair for lunch. Incision closest to posterior/lateral knee started oozing bloody drainage. Pressure held, and bleeding was stopped. Faith Madrigal TT to make aware. PRN Tylenol provided for pain control prior to activity. Reports
5/10 pain that is tolerable.
Anderson catheter removed. Due to void at 1830.
All linens changed on bed.
Call liu within reach.
[2025-10-02] MEDS: NOVOLOG FLEXPEN-HIGH RESISTANCE 7 UNITS SC ×2 (13:06→18:24)
--- NOTE | 2025-10-02 15:57 | W.PN.HOSP.TC ---
Today's Communication/Plan
-
IV heparin
Postoperative care as per vascular surgery
Assessment / Plan
Assessment / Plan
Impression
Presentation with worsening of left lower extremity pain and nonhealing wound.
Chronic limb threatening ischemia left lower extremity with nonhealing wound and mild cellulitis.
Mild COPD exacerbation (reports subjective dyspnea while on home O2, bronchospasm on exam)
Conditions prior to admission
PAD.
� Status post right femoral enterectomy with saphenous vein angioplasty and right femoral to popliteal bypass 08/16
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
COPD
History of recurrent right-sided pleural effusion requiring thoracentesis on multiple occasions. Path negative for malignancy
Pulmonary nodule under surveillance.
CAD.
� Status post remote CABG at [facility] with SHEEHAN to LAD
� PCI with unclear details at [facility]
�Out of the hospital STEMI alert 11/18 with no evidence of culprit lesion
Chronic CHF preserved EF
Paroxysmal atrial fibrillation/flutter
Chronic anticoagulation with Eliquis.
History of gastrointestinal bleed: EGD/colonoscopy 11/18 with angioectasia requiring APC and colon polyps
Chronic macrocytic anemia
Hypertension
Diabetes type 2
Hepatitis C treated and cleared infection
Ongoing tobacco use disorder
Imaging
Chest x-ray: No acute cardiopulmonary process
Arterial ultrasound:
1. Right lower extremity: KEREN 1.16, within normal limits. TBI mildly reduced 0.63, improved from prior study (0.53). Multiphasic common femoral and profunda waveforms. Femoral to posterior tibial artery bypass is patent with mild distal anastomotic
velocity elevation 158 cm/s (velocity ratio 2.43), possibly consistent with greater than 50% stenosis. Not significantly changed from prior study. Continuous Doppler waveforms at the posterior tibial artery are multiphasic, at the dorsalis pedis are
monophasic.
2. Left lower extremity: KEREN 0.67. Consistent with moderate arterial deficiency. However, on the prior study KEREN was not obtainable/measurable due to medial calcinosis/noncompressibility of the vessels. Therefore this value may be false. TBI is
0.16, severely reduced, but relatively stable compared to prior study (0.12). Severe left common femoral artery stenosis with likely occlusion, likely unchanged. Superficial femoral artery and popliteal artery appear occluded as well. Continuous
Doppler waveforms the dorsalis pedis and posterior tibial arteries are monophasic.
Abdominal CTA
1. Right leg: Patent right femoral to posterior tibial artery bypass graft redemonstrated.
2. Left leg: Patent stent in the left common femoral artery/profunda femoris. Superficial femoral artery is completely occluded throughout the proximal to mid segments with partial distal reconstitution, worsened compared to prior. The popliteal
artery shows complete occlusion, progressed in extent from prior. Occluded common tibioperoneal trunk, progressed. Below this, there is reconstitution with three-vessel proximal run off with scattered mild to moderate disease.
3. Mild soft tissue/skin irregularity along the posterior left lower extremity/lower calf region with underlying subcutaneous edema, suggesting cellulitis. No overt fluid collections identified.
Echocardiogram 11/18:
Normal left ventricular size and function. Mild concentric left ventricular
hypertrophy. Left ventricular ejection fraction is 50% by visual assessment.
There is basal inferior akinesis. Stage II diastolic dysfunction suggestive of
abnormal relaxation and increased filling pressures.
Mitral valve opens normally. Thickened mitral valve leaflets. Mitral annular
calcification. Trace mitral regurgitation is seen.
Mildly dilated left atrium.
Tricuspid valve opens normally. Mild tricuspid regurgitation. Estimated
pulmonary artery pressure of 44 mmHg. Assuming a right atrial pressure of 8
mmHg.
Dilated right atrium.
Enlarged right ventricular size. Right ventricular hypokinesis.
Since echocardiogram May 2024, there is no significant change.
Plan
PAD with chronic limb threatening extremely the left lower extremity and nonhealing wound with cellulitis.
Imaging as above.
Wound does not look infected. Mild cellulitis improved since admission. Discontinue vancomycin and Zosyn and monitor wound closely. Preoperative antibiotics as per vascular surgery.
Status post Left femoral (profunda) to posterior tibial artery bypass with ipsilateral nonreversed greater saphenous vein conduit on 10/01
IV heparin postoperatively as per vascular surgery. Holding Eliquis.
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
Previously on Plavix
Continue statin
Will require pulmonary and cardiovascular clearance prior to intervention.
Chronic hypoxic/hypercarbic respiratory failure on home O2
COPD
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
Mild exacerbation
Noted to be bronchospastic on exam with productive cough.
Chest x-ray with no acute cardiopulmonary disease.
Initiated on dexamethasone 4 mg IV every 12 hours. Continue taper for
Continue inhaled corticosteroids and bronchodilators.
BiPAP at night as per pulmonary
Ongoing tobacco use. Counseled about quitting. Provide nicotine patch.
CAD.
Chronic CHF preserved EF.
Paroxysmal atrial fibrillation/flutter.
Weight noted to be up at 78 kg (71 likely dry weight)
Elevated pro CHF BNP close to baseline
No evidence for pulmonary or peripheral edema
Oxygen requirements close to baseline
Continue preadmission diuretic regimen Lasix 60 mg p.o. twice daily
Continue metoprolol, amiodarone, Lipitor.
Continue anticoagulation with Eliquis.
Type 2 diabetes
Hemoglobin A1c 6.7
Hold metformin acutely
Insulin basal bolus protocol with serial Accu-Cheks. Expected hyperglycemia given systemic steroid therapy
Chronic macrocytic anemia. Hemoglobin at the baseline.
History of gastrointestinal hemorrhage.
Monitor hemoglobin while on Eliquis
Continue PPI prophylaxis.
Full code
DVT prophylaxis Eliquis
Anticipated Discharge: > 48 hours
Subjective/Interval History
-
Date of Service: October 02, 2025
Objective Data
-
Labs:
Laboratory Results
10/02/25
03:37
PT 13.2
INR 0.99
APTT 23.1 L
Sodium 135
Potassium 4.5
Chloride 95 L
Carbon Dioxide 38 H
BUN 20
Creatinine 0.7
Glucose 141 H
Calcium 8.7
Vital Signs:
Vital Signs
Temp Pulse Resp BP Pulse Ox
98.1 F 62 14 135/57 98
10/02/25 12:00 10/02/25 15:27 10/02/25 15:27 10/02/25 08:00 10/02/25 11:30
I&O
10/01/25 10/02/25 10/03/25
06:59 06:59 06:59
Intake Total 1380 / 1380 1155 / 1235 270 / 270
Output Total 3345 / 3345 1285 / 1360 900 / 900
Balance -1965 / -1965 -130 / -125 -630 / -630
Physical Exam
-
General: Well Developed and No Apparent Distress
HEENT: Normocephalic, Atraumatic and Moist Mucous Membranes
Respiratory: Rhonchi; Negative Wheezes
Cardiac: Regular Rhythm and S1/S2; Negative Murmur, Rub or Gallop
GI: Soft, Nontender, Nondistended and Normal Bowel Sounds; Negative Organomegaly
Rectal: Deferred by Provider
Musculoskeletal: No Clubbing, No Cyanosis and Other (Not palpable dorsal pedis and posterior tibial pulses. Left calf wound with dry eschar)
Skin: Negative Rash
Neuro: Nonfocal/Grossly Intact
[2025-10-02 17:11] LABS: Glucose - Point of Care 282 mg/dl (70-99)
[2025-10-02] MEDS: NOVOLIN N vial 0.12 UNITS SC (18:57)
[2025-10-02 19:09] LABS: Glucose - Point of Care 298 mg/dl (70-99)
--- NOTE | 2025-10-02 20:00 | PTCARENOTE ---
on assessment pt AAOx3, CAMPBELL, c/o mild discomfort to incision site, small amount of drainage noted past markings, same amount noted for dayshift as well, neurovascular checks unchanged, + doppler pulses, 2L NC, wheezing and refusing BIPAP, uses
urinal, non healing wound with dressing above L heel, hep gtt running at set rate, PRN meds given see MAR, call liu in reach
[2025-10-02 21:28] LABS: Glucose - Point of Care 288 mg/dl (70-99)
[2025-10-02] MEDS: LIPITOR 80 MG PO (21:49)
[2025-10-02] MEDS: ROXICODONE 5 MG PO (21:50)
[2025-10-02] MEDS: REQUIP 0.5 MG PO (21:50)
[2025-10-03] VITALS (20 sets, daily range): BP systolic 97–166; BP diastolic 49–79; PULSE 67–70; O2SAT 93–98; BMI 24.0
--- NOTE | 2025-10-03 01:04 | PTCARENOTE ---
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
--- NOTE | 2025-10-03 03:27 | PTCARENOTE ---
pt appears to be resting in bed comfortably, no chest pain or SOB at this time, call liu in reach
[2025-10-03] MEDS: ROXICODONE 5 MG PO (04:54)
[2025-10-03 05:03] LABS: Hematocrit 45.5 % (39.0-52.0); Hemoglobin 14.2 g/dL (13.0-18.0); Mean Corp Hgb Conc. 31.2 g/dL (33.0-37.0); Mean Corpuscular Volume 98.3 fL (80.0-94.0); Nucleated Red Blood Cells % 0 % (-); Platelet Count 281 10^3/uL (130-400); Red Cell Dist. Width 13.9 % (11.5-14.5)
[2025-10-03 05:18] LABS: APTT 27.1 Sec (23.4-35.0)
[2025-10-03 05:36] LABS: Blood Urea Nitrogen 22 mg/dl (9-20); Calcium 8.7 mg/dl (8.4-10.2); Chloride 95 mmol/L (98-107); Estimated Creatinine Clearance 86 ml/min; Glucose 154 mg/dl (70-99); Potassium 4.1 mmol/L (3.5-5.1); Sodium 135 mmol/L (135-145); eGFR > 60.00
[2025-10-03 06:14] LABS: Carbon Dioxide 38 mmol/L (22-30)
--- NOTE | 2025-10-03 07:38 | W.PN.VS ---
Addendum entered and electronically signed by Cl Riley MD 10/03/25 10:13:
Seen and examined with BRITTNEY Madrigal. Agree with findings as noted below. Patient without any new complaints. Left lower extremity incisions are clean dry and intact. Palpable graft pulse. Excellent dopplerable PT signal. Plan/as discussed and noted
below.
Original Note:
Today's Communication / Plan
-
Patient seen and examined at bedside with Dr. Cl Riley M.D., below plan reviewed with attending.
Assessment/Plan
-
Postop day 2 Left femoral (profunda) to posterior tibial artery bypass with ipsilateral nonreversed greater saphenous vein conduit
Plan:
Can transition to patient's home Eliquis p.o. today
Will initiate aspirin 81 mg p.o. daily, please continue this medication upon discharge
Continue statin therapy
Encourage ambulation
PT/OT evaluation
Cleared from a vascular surgical perspective for downgrade to telemonitoring
Continue neurovascular checks
Subjective Data
-
Date of Service: October 03, 2025
Patient seen and examined at bedside, reports well-managed postoperative pain. Denies nausea, vomiting, fever, and chills. Tolerating p.o. diet. Reports eagerness for discharge to home.
Objective Data
-
Vital Signs
Temp Pulse Resp BP Pulse Ox
98.7 F 60 20 125/67 95
10/03/25 07:22 10/03/25 06:15 10/03/25 06:15 10/03/25 06:00 10/03/25 06:15
Intake and Output
10/02/25 10/03/25 10/04/25
06:59 06:59 06:59
Intake Total 1155 / 1235 350 / 350
Output Total 1285 / 1360 3425 / 3425
Balance -130 / -125 -3075 / -3075
Intake:
Oral fluids 360 / 360
IV fluids (Total) 795 / 875 350 / 350
Heparin 110 / 110
NSS 720 / 800 240 / 240
normso 75 / 75
Output:
Urine, Anderson 1285 / 1360 900 / 900
Urine, Voided 2525 / 2525
Lab Results
10/03/25 04:49
10/03/25 04:49
Calcium 8.7 mg/dl (8.4-10.2) 10/03/25 04:49
Phosphorus 2.9 mg/dl (2.5-4.5) 10/01/25 20:39
Magnesium 2.1 mg/dl (1.6-2.3) 10/01/25 20:39
Total Bilirubin 0.6 mg/dl (0.2-1.3) 09/26/25 13:34
AST 21 U/L (17-59) 09/26/25 13:34
ALT 15 U/L (0-50) 09/26/25 13:34
Alkaline Phosphatase 112 U/L (38-126) 09/26/25 13:34
Total Protein 7.1 g/dl (6.3-8.2) 09/26/25 13:34
Albumin 4.0 g/dl (3.5-5.0) 09/26/25 13:34
Physical Exam
-
AAO x 3
No tachypnea on 2 L nasal cannula
No tachycardia
Abdomen soft
Left lower extremity dressing removed by this provider, staple sites clean, dry, and intact, staple line well-approximated, no evidence of hematoma
All compartments soft
Excellent PT Doppler at left foot
[2025-10-03 07:51] LABS: Glucose - Point of Care 138 mg/dl (70-99)
[2025-10-03] MEDS: DUONEB 3 ML INH ×3 (07:57→20:25)
[2025-10-03] MEDS: PULMICORT 0.25 MG INH ×2 (07:57→20:25)
--- NOTE | 2025-10-03 08:05 | W.PN.INTV ---
Today's Communication / Plan
Recommendations
DuoNebs + budesonide; resumption of Trelegy upon discharge
Pain control
Postoperative management as per vascular surgery
Nicotine patch
Heparin drip
Prednisone with taper
No additional recommendations at this time. Outpatient pulmonary follow-up will be arranged with Dr. Mckeon whom he follows with. Medical Numerical Control Operator/Pulmonary service will now sign off. Please reconsult if there are any additional questions/concerns,
or if patient's respiratory status deteriorates.
Assessment
-
74-year-old man with multiple medical problems. Advanced COPD. Chronic hypercapnic and hypoxemic respiratory failure. Coronary artery disease post bypass, peripheral vascular disease, ongoing smoking, alcohol abuse disorder. Admitted to the
hospital with lower extremity swelling, erythema, nonhealing ulcer. Known to have peripheral arterial disease. Evaluation by vascular surgery determined that patient would be candidate for bypass-we were consulted for preparatory assessment.
History of advanced/severe COPD with chronic hypercapnic respiratory failure FEV1 46%. Seen last time by Dr. Mckeon in the office 11/16/2024. Also with possible obstructive sleep apnea-sleep study has been recommended in the past. Lost
appointment after that.
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 FEV1 less than 50%.
Suspect chronic cor pulmonale based on echocardiogram 11/21/2024.
Chest x-ray 09/26/2025: No acute abnormalities.
Unable to perform 6-minute walk testing due to mobility issues.
Peripheral vascular disease with chronic left limb ischemia s/p left femoral (profunda) to posterior tibial artery bypass with ipsilateral nonreversed greater saphenous vein conduit (POD#2)
Conditions present prior admission:
Hospital admission 11/2024 due to hypercapnic respiratory failure requiring intubation.
Chronic right pleural effusion: Chest tube placed 12/02/2024.
pH 7.51/white blood cells 480/93% mononuclear/glucose 170/total protein 3.1/LDH 176/ambulates 56/triglycerides under 30.
Negative cytology
Lung nodule 7.4 mm on CAT scan January 2024-due for repeat CT. Request given 11/16/2024.
Patient did not follow-up with CAT scan.
Active tobacco smoker-ongoing
EKG changes initially admitted as ST elevation myocardial infraction alert
s/p Cardiac catheterization 11/21/2024: Nonobstructive coronary artery disease. Elevated LVEDP at 19.
Advanced COPD due to tobacco use not in an acute exacerbation
Chronic hypoxemic respiratory failure 2-3 L of supplemental oxygen.
On Trelegy
Last seen by Dr. Mckeon 11/16/2024
PFT 2022 - 1.43L 46%
He was recommended to transition to nebulized therapy as unlikely to perform inhaler maneuver.
Paroxysmal A-fib/flutter on Eliquis
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
CAD s/p CABG
PAD with Hx of right femoral endarterectomy and femoral bypas.
DM type II (HbA1C: 7.5 on 08/19/2024)
Hepatic steatosis-mild ascites on ultrasound
History of hepatitis C
History of alcohol abuse-Patient states no longer using 12/02/2024
History of tobacco abuse patient states that no longer using 12/02/2024
Plan
Postoperative surgical intensive care unit monitoring
Supplemental oxygen as needed to maintain SpO2 88-95%; patient on 2 L as an outpatient
prn nebulized bronchodilators - not currently bronchospastic
Incentive spirometry encouraged 10x per hour for at least 4 hrs a day
Aspiration precautions
Pain control
Ideally, patient should be using BiPAP with sleep due to chronic hypercapnia - he has been refusing to wear
Nebulizers-DuoNebs
Resume inhalers time of discharge
Prednisone 40 mg daily with taper
Neuro and vascular checks per protocol
Maintain MAP>65
Replete electrolytes with K>4, Mg>2
Maintain euglycemia with goal BG 140-180
Vascular surgery following-correspondence and operative notes reviewed
Transfuse blood products as needed to keep Hb>7g/dL, and plt>50k (given post-operative status)
Smoking cessation counseling. Ongoing
Nicotine patch.
DVT prophylaxis
Early nutrition
Early mobilization
Follow-up with Dr. Mckeon after discharge.
Dr. Mckeon has previously discussed with daughter and patient regarding DNR status. Remains full code.
Patient is stable for downgrade out of ICU to telemetry. Outpatient pulmonary office follow-up will be arranged with Dr. Mckeon, whom the patient last saw in October 2024.
No additional recommendations at this time. Medical Numerical Control Operator/Pulmonary service will now sign off. Thank you for allowing us to be involved in the care of this patient. Please reconsult if there are any additional questions/concerns, or if patient's
respiratory status deteriorates.
Diagnostic Data
Chest x-ray 09/26/2025: Clear lungs.
CXR 12/06/24- The tip of the right-sided chest tube is at the lateral right base and there has been near complete resolution of the pleural fluid collection at the right lung base in the interval since the prior study. There is no pneumothorax
Chest X-Ray: 12/03/24- Right pleural pigtail catheter is present. Slight interval decrease in size of right pleural effusion. No evidence for significant pneumothorax.
CT chest 12/02/2024: Old right 4 through 11 rib fractures; Moderate to large right pleural effusion. Compressive atelectasis. No significant left pleural effusion. Small nodular opacity in the left upper lobe new compared to prior CAT scan.
Echo: 11/21/24- Normal left ventricular size and function. Mild concentric left ventricular hypertrophy. Left ventricular ejection fraction is 50% by visual assessment. There is basal inferior akinesis. Stage II diastolic dysfunction suggestive of
abnormal relaxation and increased filling pressures. Mitral valve opens normally. Thickened mitral valve leaflets. Mitral annular calcification. Trace mitral regurgitation is seen. Mildly dilated left atrium. Tricuspid valve opens normally. Mild
tricuspid regurgitation. Estimated pulmonary artery pressure of 44 mmHg. Assuming a right atrial pressure of 8 mmHg. Dilated right atrium. Enlarged right ventricular size. Right ventricular hypokinesis. Since echocardiogram May 2024, there is
no significant change.
.
Total time spent today was 57 minutes for this encounter. Time includes reviewing laboratory test/imaging results, reviewing pertinent medical records, obtaining and reviewing medical history, performing an appropriate exam, ordering medications,
tests and procedures. Time also includes documentation of this encounter, coordinating patient care and communicating with other healthcare professionals. Total time does not include separately billed tests performed on this date of service.
Subjective Dataa
Subjective Data
Date of Service:
Date of Service: October 03, 2025
Chief Complaint: Medical Numerical Control Operator Follow Up
Subjective:
Pt seen and evaluated this morning. Still having pain in left lower extremity, although better than yesterday. On 2 L/min nasal cannula, saturating 96% and breathing comfortably. Heart rate 66 and BP 140/59. Of note, patient does use oxygen
intermittently at home in the evening hours. He does not sleep with oxygen though.
Review of Systems
General: Other (Negative unless mentioned above)
Objective Data
Data Reviewed
Vital Signs / I&O / Oxygen:
Vital Signs
Temp Pulse Resp BP Pulse Ox
98.7 F 64 19 122/55 95
10/03/25 07:22 10/03/25 09:00 10/03/25 09:00 10/03/25 09:00 10/03/25 09:00
Intake and Output
10/02/25 10/03/25 10/04/25
06:59 06:59 06:59
Intake Total 1155 / 1235 350 / 355
Output Total 1285 / 1360 3425 / 3725 300 / 300
Balance -130 / -125 -3075 / -3370 -290 / -290
SaO2 95
Nasal Cannula flow liters per 2
minute
Physical Exam
General: Respiratory Distress (n), Comfortable, Chills (n) and Sweats (n)
HEENT: Normocephalic and Anicteric
Cardiovascular: S1-S2 and Peripheral Edema (negative)
Respiratory: Wheeze (n), Crackles (n), Rhonchi (n), Non-Labored Respirations and Other (Prolonged expiratory phase)
GI: Soft, Non Distended, Non Tender and Normal Bowel Sounds
Neurology: Awake, Alert, Oriented and Tremors (n)
Skin: Warm, Dry, Cyanosis (n) and Jaundice (n)
Labs/Micro/Reports
Lab Data
10/03/25 04:49
10/03/25 04:49
Laboratory Results
10/03/25
04:49
APTT 27.1
[2025-10-03] MEDS: NOVOLOG FLEXPEN-HIGH RESISTANCE 1 UNITS SC (09:01)
[2025-10-03] MEDS: NICODERM TRANSDERMAL 21 MG TRANSDERM (09:03)
[2025-10-03] MEDS: MIRALAX 17 GRAMS PO (09:04)
[2025-10-03] MEDS: LASIX 60 MG PO ×2 (09:05→16:56)
[2025-10-03] MEDS: DELTASONE 40 MG PO (09:06)
[2025-10-03] MEDS: FEOSOL 325 MG PO (09:06)
[2025-10-03] MEDS: TYLENOL 650 MG PO (09:06)
[2025-10-03] MEDS: SENOKOT-S 1 TABLET PO (09:06)
[2025-10-03] MEDS: FOLVITE 1 MG PO (09:07)
[2025-10-03] MEDS: PACERONE 200 MG PO (09:07)
[2025-10-03] MEDS: HYDROPHOR 1 APPLIC TOPICAL (09:07)
[2025-10-03] MEDS: TOPROL XL 50 MG PO ×2 (09:07→20:46)
[2025-10-03] MEDS: ELIQUIS 5 MG PO ×2 (09:07→20:46)
[2025-10-03] MEDS: LOW STRENGTH ASPIRIN 81 MG PO (09:07)
[2025-10-03] MEDS: VITAMIN B1 100 MG PO (09:08)
[2025-10-03] MEDS: PROTONIX 40 MG PO (09:08)
--- NOTE | 2025-10-03 10:15 | PTCARENOTE ---
Patient assisted OOB into chair after some encouragement this morning. Left leg incision (closest to knee) started to ooze serosanguineous fluid. Incision cleaned with CHG. Dry dressing placed . Faith Madrigal TT to update and make aware.
Dr. Gonzalez also made aware in person that patient's legs still appear red and warm with cellulitis. Will monitor off abx. Pt remains afebrile.
[2025-10-03 12:23] LABS: Glucose - Point of Care 172 mg/dl (70-99)
[2025-10-03] MEDS: NOVOLOG FLEXPEN-HIGH RESISTANCE 2 UNITS SC (12:40)
--- NOTE | 2025-10-03 13:32 | W.PN.HOSP.TC ---
Today's Communication/Plan
-
Eliquis with addition of aspirin
PT assessment
Steroid taper
Assessment / Plan
Assessment / Plan
Impression
Presentation with worsening of left lower extremity pain and nonhealing wound.
Chronic limb threatening ischemia left lower extremity with nonhealing wound and mild cellulitis.
Mild COPD exacerbation (reports subjective dyspnea while on home O2, bronchospasm on exam)
Conditions prior to admission
PAD.
� Status post right femoral enterectomy with saphenous vein angioplasty and right femoral to popliteal bypass 08/16
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
COPD
History of recurrent right-sided pleural effusion requiring thoracentesis on multiple occasions. Path negative for malignancy
Pulmonary nodule under surveillance.
CAD.
� Status post remote CABG at [facility] with SHEEHAN to LAD
� PCI with unclear details at [facility]
�Out of the hospital STEMI alert 11/18 with no evidence of culprit lesion
Chronic CHF preserved EF
Paroxysmal atrial fibrillation/flutter
Chronic anticoagulation with Eliquis.
History of gastrointestinal bleed: EGD/colonoscopy 11/18 with angioectasia requiring APC and colon polyps
Chronic macrocytic anemia
Hypertension
Diabetes type 2
Hepatitis C treated and cleared infection
Ongoing tobacco use disorder
Imaging
Chest x-ray: No acute cardiopulmonary process
Arterial ultrasound:
1. Right lower extremity: KEREN 1.16, within normal limits. TBI mildly reduced 0.63, improved from prior study (0.53). Multiphasic common femoral and profunda waveforms. Femoral to posterior tibial artery bypass is patent with mild distal anastomotic
velocity elevation 158 cm/s (velocity ratio 2.43), possibly consistent with greater than 50% stenosis. Not significantly changed from prior study. Continuous Doppler waveforms at the posterior tibial artery are multiphasic, at the dorsalis pedis are
monophasic.
2. Left lower extremity: KEREN 0.67. Consistent with moderate arterial deficiency. However, on the prior study KEREN was not obtainable/measurable due to medial calcinosis/noncompressibility of the vessels. Therefore this value may be false. TBI is
0.16, severely reduced, but relatively stable compared to prior study (0.12). Severe left common femoral artery stenosis with likely occlusion, likely unchanged. Superficial femoral artery and popliteal artery appear occluded as well. Continuous
Doppler waveforms the dorsalis pedis and posterior tibial arteries are monophasic.
Abdominal CTA
1. Right leg: Patent right femoral to posterior tibial artery bypass graft redemonstrated.
2. Left leg: Patent stent in the left common femoral artery/profunda femoris. Superficial femoral artery is completely occluded throughout the proximal to mid segments with partial distal reconstitution, worsened compared to prior. The popliteal
artery shows complete occlusion, progressed in extent from prior. Occluded common tibioperoneal trunk, progressed. Below this, there is reconstitution with three-vessel proximal run off with scattered mild to moderate disease.
3. Mild soft tissue/skin irregularity along the posterior left lower extremity/lower calf region with underlying subcutaneous edema, suggesting cellulitis. No overt fluid collections identified.
Echocardiogram 11/18:
Normal left ventricular size and function. Mild concentric left ventricular
hypertrophy. Left ventricular ejection fraction is 50% by visual assessment.
There is basal inferior akinesis. Stage II diastolic dysfunction suggestive of
abnormal relaxation and increased filling pressures.
Mitral valve opens normally. Thickened mitral valve leaflets. Mitral annular
calcification. Trace mitral regurgitation is seen.
Mildly dilated left atrium.
Tricuspid valve opens normally. Mild tricuspid regurgitation. Estimated
pulmonary artery pressure of 44 mmHg. Assuming a right atrial pressure of 8
mmHg.
Dilated right atrium.
Enlarged right ventricular size. Right ventricular hypokinesis.
Since echocardiogram May 2024, there is no significant change.
Plan
PAD with chronic limb threatening extremely the left lower extremity and nonhealing wound with cellulitis.
Imaging as above.
Wound does not look infected. Mild cellulitis improved since admission. Discontinue vancomycin and Zosyn and monitor wound closely. Preoperative antibiotics as per vascular surgery.
Status post Left femoral (profunda) to posterior tibial artery bypass with ipsilateral nonreversed greater saphenous vein conduit on 10/01
Anticoagulation/antiplatelet: IV heparin postoperatively back to Eliquis as of 10/03 with addition of aspirin. Dual therapy to be continued as outpatient
He has been on anticoagulation with Eliquis ETCHER HAND for paroxysmal A-fib/flutter
Previously on Plavix
Continue statin
Chronic hypoxic/hypercarbic respiratory failure on home O2
COPD
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
Mild exacerbation
Noted to be bronchospastic on exam with productive cough.
Chest x-ray with no acute cardiopulmonary disease.
Dexamethasone to prednisone at 40 mg taper slowly
Continue inhaled corticosteroids and bronchodilators.
BiPAP at night as per pulmonary
Ongoing tobacco use. Counseled about quitting. Provide nicotine patch.
CAD.
Chronic CHF preserved EF.
Paroxysmal atrial fibrillation/flutter.
Weight noted to be up at 78 kg (71 likely dry weight)
Elevated pro CHF BNP close to baseline
No evidence for pulmonary or peripheral edema
Oxygen requirements close to baseline
Continue preadmission diuretic regimen Lasix 60 mg p.o. twice daily
Continue metoprolol, amiodarone, Lipitor.
Continue anticoagulation with Eliquis.
Type 2 diabetes
Hemoglobin A1c 6.7
Hold metformin acutely
Insulin basal bolus protocol with serial Accu-Cheks. Expected hyperglycemia given systemic steroid therapy
Chronic macrocytic anemia. Hemoglobin at the baseline.
History of gastrointestinal hemorrhage.
Monitor hemoglobin while on Eliquis
Continue PPI prophylaxis.
Full code
DVT prophylaxis Eliquis
Anticipated Discharge: 24 - 48 hours
Subjective/Interval History
-
Date of Service: October 03, 2025
Objective Data
-
Labs:
Laboratory Results
10/03/25
04:49
WBC 19.8 H
Hgb 14.2
Hct 45.5
Plt Count 281
APTT 27.1
Sodium 135
Potassium 4.1
Chloride 95 L
Carbon Dioxide 38 H
BUN 22 H
Creatinine 0.8
Glucose 154 H
Calcium 8.7
Vital Signs:
Vital Signs
Temp Pulse Resp BP Pulse Ox
98 F 72 28 149/79 96
10/03/25 11:30 10/03/25 13:00 10/03/25 13:00 10/03/25 12:07 10/03/25 13:14
I&O
10/02/25 10/03/25 10/04/25
06:59 06:59 06:59
Intake Total 1155 / 1235 350 / 355
Output Total 1285 / 1360 3425 / 3725 575 / 575
Balance -130 / -125 -3075 / -3370 -565 / -565
Physical Exam
-
General: Well Developed and No Apparent Distress
HEENT: Normocephalic, Atraumatic and Moist Mucous Membranes
Respiratory: Rhonchi; Negative Wheezes
Cardiac: Regular Rhythm and S1/S2; Negative Murmur, Rub or Gallop
GI: Soft, Nontender, Nondistended and Normal Bowel Sounds; Negative Organomegaly
Rectal: Deferred by Provider
Musculoskeletal: No Clubbing, No Cyanosis and Other (Not palpable dorsal pedis and posterior tibial pulses. Left calf wound with dry eschar)
Skin: Negative Rash
Neuro: Nonfocal/Grossly Intact
[2025-10-03] MEDS: DUONEB INH (15:31)
[2025-10-03] MEDS: DULCOLAX 10 MG RECTAL (15:44)
--- NOTE | 2025-10-03 16:22 | CM ---
F/U: DANIKA Mckee saw that patient needs SNF so spoke to patient. Patient is a little anxious, not understanding everything DANIKA is saying, so asked that CM call nephew Thaddeus (who he lives with) #[phone]. DANIKA left a message. PLAN: Anticipate SNF when
ready.
--- NOTE | 2025-10-03 16:41 | PTCARENOTE ---
Patient has been downgraded to telemetry. NSR. Transitioned to Eliquis today. Heparin gtt off earlier this morning. Neurovascular checks are unchanged. LLE incision with remberto STARCH CRAB, with a dry dressing placed to part of incision that was draining
earlier. Pain managed with PRN Tylenol as patient is constipated even after senna/miralax. Pt agreed to suppository. Pt passing gas. Good appetite.
[2025-10-03 17:20] LABS: Glucose - Point of Care 291 mg/dl (70-99)
[2025-10-03] MEDS: NOVOLOG FLEXPEN-HIGH RESISTANCE 7 UNITS SC (17:37)
[2025-10-03] MEDS: NOVOLIN N vial 0.15 UNITS SC (18:20)
[2025-10-03] MEDS: MELATONIN 5 MG PO (21:38)
[2025-10-03] MEDS: REQUIP 0.5 MG PO (21:38)
[2025-10-03] MEDS: LIPITOR 80 MG PO (21:38)
[2025-10-03 21:53] LABS: Glucose - Point of Care 307 mg/dl (70-99)
[2025-10-03] MEDS: NOVOLOG FLEXPEN 10 UNITS SC (22:03)
[2025-10-04] VITALS (9 sets, daily range): BP systolic 104–146; BP diastolic 50–98; PULSE 62; O2SAT 94; BMI 24.5; BMI 24.7
[2025-10-04 00:21] LABS: Glucose - Point of Care 192 mg/dl (70-99)
[2025-10-04 04:54] LABS: Hematocrit 42.6 % (39.0-52.0); Hemoglobin 13.6 g/dL (13.0-18.0); Mean Corp Hgb Conc. 31.9 g/dL (33.0-37.0); Mean Corpuscular Volume 97.5 fL (80.0-94.0); Nucleated Red Blood Cells % 0 % (-); Platelet Count 290 10^3/uL (130-400); Red Cell Dist. Width 13.8 % (11.5-14.5)
[2025-10-04 05:21] LABS: Blood Urea Nitrogen 23 mg/dl (9-20); Calcium 9.1 mg/dl (8.4-10.2); Carbon Dioxide 38 mmol/L (22-30); Chloride 97 mmol/L (98-107); Estimated Creatinine Clearance 115 ml/min; Glucose 114 mg/dl (70-99); Potassium 4.1 mmol/L (3.5-5.1); Sodium 135 mmol/L (135-145); eGFR > 60.00
[2025-10-04] MEDS: PULMICORT 0.25 MG INH (07:32)
[2025-10-04] MEDS: DUONEB 3 ML INH (07:32)
[2025-10-04] MEDS: NICODERM TRANSDERMAL 21 MG TRANSDERM (07:50)
[2025-10-04 07:53] LABS: Glucose - Point of Care 128 mg/dl (70-99)
[2025-10-04] MEDS: SENOKOT-S 1 TABLET PO (07:53)
[2025-10-04] MEDS: ELIQUIS 5 MG PO ×2 (07:53→19:47)
[2025-10-04] MEDS: DELTASONE 30 MG PO (07:54)
[2025-10-04] MEDS: PROTONIX 40 MG PO (07:55)
[2025-10-04] MEDS: LOW STRENGTH ASPIRIN 81 MG PO (07:55)
[2025-10-04] MEDS: FOLVITE 1 MG PO (07:55)
[2025-10-04] MEDS: VITAMIN B1 100 MG PO (07:55)
--- NOTE | 2025-10-04 07:55 | W.PN.VS ---
Addendum entered and electronically signed by Cl Riley MD 10/04/25 15:53:
Seen and examined with BRITTNEY Pitts earlier this a.m. This is a late entry. Agree with findings and plan as discussed and noted below. Good graft function on exam.
Original Note:
Today's Communication / Plan
-
Seen and assessed with Dr Riley
Assessment/Plan
-
Postop day 3 Left femoral (profunda) to posterior tibial artery bypass with ipsilateral nonreversed greater saphenous vein conduit
Plan:
Continue eliquis/ASA/ statin on discharge
Encourage ambulation
PT/OT
I will place follow up in chart, call with questions please
Subjective Data
-
Date of Service: October 04, 2025
Pt seen at bedside this am with Dr Riley. Pt offers no complaints at this time. No events overnight.
Objective Data
-
Vital Signs
Temp Pulse Resp BP Pulse Ox
97.9 F 86 18 125/54 95
10/04/25 05:07 10/04/25 07:34 10/04/25 07:34 10/04/25 00:10 10/04/25 07:34
Intake and Output
10/03/25 10/04/25 10/05/25
06:59 06:59 06:59
Intake Total 350 / 355 970 / 970
Output Total 3425 / 3725 1850 / 1850
Balance -3075 / -3370 -880 / -880
Intake:
Oral fluids 960 / 960
IV fluids (Total) 350 / 355
Heparin 110 / 115
NSS 240 / 240
Output:
Urine, Anderson 900 / 900
Urine, Voided 2525 / 2825 1850 / 1850
Lab Results
10/04/25 04:43
10/04/25 04:43
Calcium 9.1 mg/dl (8.4-10.2) 10/04/25 04:43
Phosphorus 2.9 mg/dl (2.5-4.5) 10/01/25 20:39
Magnesium 2.1 mg/dl (1.6-2.3) 10/01/25 20:39
Total Bilirubin 0.6 mg/dl (0.2-1.3) 09/26/25 13:34
AST 21 U/L (17-59) 09/26/25 13:34
ALT 15 U/L (0-50) 09/26/25 13:34
Alkaline Phosphatase 112 U/L (38-126) 09/26/25 13:34
Total Protein 7.1 g/dl (6.3-8.2) 09/26/25 13:34
Albumin 4.0 g/dl (3.5-5.0) 09/26/25 13:34
Physical Exam
-
AAO x 3
No tachypnea on 2 L nasal cannula
No tachycardia
Abdomen soft
Left lower extremity staple sites clean, dry, and intact, staple line well-approximated, no evidence of hematoma
All compartments soft
Excellent PT Doppler at left foot
[2025-10-04] MEDS: HYDROPHOR 1 APPLIC TOPICAL (07:56)
[2025-10-04] MEDS: NOVOLOG FLEXPEN-HIGH RESISTANCE 1 UNITS SC (07:59)
[2025-10-04] MEDS: ROXICODONE 5 MG PO (08:02)
[2025-10-04] MEDS: LASIX 60 MG PO ×2 (08:09→17:20)
[2025-10-04] MEDS: FEOSOL 325 MG PO (08:09)
--- NOTE | 2025-10-04 08:12 | PTCARENOTE ---
0700 assumed care. pt seating in bed. On 2L of oxygen via nasal canula; BP via RT upper arm 108/62; Normal Bradycardia Rhythm 62; Pox 98%/2L via nasal canula. Left LE Incision from upper leg to below knee all remberto intact. pedal pules present to
Doppler; left LE redness secondary to cellulitis continue to be noted
--- NOTE | 2025-10-04 12:09 | PN.CDI ---
CDI
- -
CDI:
Physician Documentation Request
Admit Date: 09/26/25 16:31
Dear Doctor Magalie
Patient has a history of COPD and Chronic hypoxic and hypercarbic respiratory failure on home O2.
Pulmonary progress note states 'patient on 2 L as an outpatient'
H&P states 'Patient with also hypoxemia requiring 4 L oxygen....likely acute COPD exacerbation'
Please clarify which of the following accurately represents the acuity of the hypoxic and hypercarbic respiratory failure on presentation.
Acute on Chronic
Chronic only
____ Other
Use of terms such as suspected, likely, concern for, or probable (associated with a specific diagnosis that is being evaluated, monitored, or treated as if it exists) are acceptable and can be coded in the inpatient setting, when documented at the
time of discharge.
Thank you,
Kelli Whitley RN, BSN
CDI Specialist
tiger text
Please use your independent medical judgment in providing your response.
[2025-10-04 13:19] LABS: Glucose - Point of Care 264 mg/dl (70-99)
[2025-10-04] MEDS: NOVOLOG FLEXPEN-HIGH RESISTANCE 7 UNITS SC ×2 (13:34→17:21)
[2025-10-04] MEDS: TOPROL XL PO (13:36)
[2025-10-04] MEDS: PACERONE PO (13:36)
--- NOTE | 2025-10-04 13:53 | CM ---
Addendum entered by Shaina Virgen 10/04/25 16:15:
CM spoke with Kimberlyn Prince at [facility] - she is asking for more information regarding the patient's wounds before they would accept for admission. She would like to see pictures if available.
CM will continue to follow to coordinate transfer to SNF, pt's preference is for [facility].
Original Note:
CM met with patient to discuss discharge to SNF. [facility] is agreeable to SNF transfer and requests [facility]. Referral sent in [facility] and DANIKA spoke with Reggie in admissions; she will review the referral and let me know if patient is accepted
for admission.
Insurance authorization required once facility has accepted for admission.
--- NOTE | 2025-10-04 14:44 | W.PN.HOSP.TC ---
Today's Communication/Plan
-
Continue aspirin and Eliquis
Continue steroid taper
[facility]
Assessment / Plan
Assessment / Plan
Impression
Presentation with worsening of left lower extremity pain and nonhealing wound.
Chronic limb threatening ischemia left lower extremity with nonhealing wound and mild cellulitis.
Mild COPD exacerbation (reports subjective dyspnea while on home O2, bronchospasm on exam)
Conditions prior to admission
PAD.
� Status post right femoral enterectomy with saphenous vein angioplasty and right femoral to popliteal bypass 08/16
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
COPD
History of recurrent right-sided pleural effusion requiring thoracentesis on multiple occasions. Path negative for malignancy
Pulmonary nodule under surveillance.
CAD.
� Status post remote CABG at [facility] with SHEEHAN to LAD
� PCI with unclear details at [facility]
�Out of the hospital STEMI alert 11/18 with no evidence of culprit lesion
Chronic CHF preserved EF
Paroxysmal atrial fibrillation/flutter
Chronic anticoagulation with Eliquis.
History of gastrointestinal bleed: EGD/colonoscopy 11/18 with angioectasia requiring APC and colon polyps
Chronic macrocytic anemia
Hypertension
Diabetes type 2
Hepatitis C treated and cleared infection
Ongoing tobacco use disorder
Imaging
Chest x-ray: No acute cardiopulmonary process
Arterial ultrasound:
1. Right lower extremity: KEREN 1.16, within normal limits. TBI mildly reduced 0.63, improved from prior study (0.53). Multiphasic common femoral and profunda waveforms. Femoral to posterior tibial artery bypass is patent with mild distal anastomotic
velocity elevation 158 cm/s (velocity ratio 2.43), possibly consistent with greater than 50% stenosis. Not significantly changed from prior study. Continuous Doppler waveforms at the posterior tibial artery are multiphasic, at the dorsalis pedis are
monophasic.
2. Left lower extremity: KEREN 0.67. Consistent with moderate arterial deficiency. However, on the prior study KEREN was not obtainable/measurable due to medial calcinosis/noncompressibility of the vessels. Therefore this value may be false. TBI is
0.16, severely reduced, but relatively stable compared to prior study (0.12). Severe left common femoral artery stenosis with likely occlusion, likely unchanged. Superficial femoral artery and popliteal artery appear occluded as well. Continuous
Doppler waveforms the dorsalis pedis and posterior tibial arteries are monophasic.
Abdominal CTA
1. Right leg: Patent right femoral to posterior tibial artery bypass graft redemonstrated.
2. Left leg: Patent stent in the left common femoral artery/profunda femoris. Superficial femoral artery is completely occluded throughout the proximal to mid segments with partial distal reconstitution, worsened compared to prior. The popliteal
artery shows complete occlusion, progressed in extent from prior. Occluded common tibioperoneal trunk, progressed. Below this, there is reconstitution with three-vessel proximal run off with scattered mild to moderate disease.
3. Mild soft tissue/skin irregularity along the posterior left lower extremity/lower calf region with underlying subcutaneous edema, suggesting cellulitis. No overt fluid collections identified.
Echocardiogram 11/18:
Normal left ventricular size and function. Mild concentric left ventricular
hypertrophy. Left ventricular ejection fraction is 50% by visual assessment.
There is basal inferior akinesis. Stage II diastolic dysfunction suggestive of
abnormal relaxation and increased filling pressures.
Mitral valve opens normally. Thickened mitral valve leaflets. Mitral annular
calcification. Trace mitral regurgitation is seen.
Mildly dilated left atrium.
Tricuspid valve opens normally. Mild tricuspid regurgitation. Estimated
pulmonary artery pressure of 44 mmHg. Assuming a right atrial pressure of 8
mmHg.
Dilated right atrium.
Enlarged right ventricular size. Right ventricular hypokinesis.
Since echocardiogram May 2024, there is no significant change.
Plan
PAD with chronic limb threatening extremely the left lower extremity and nonhealing wound with cellulitis.
Imaging as above.
Wound does not look infected. Mild cellulitis improved since admission. Discontinue vancomycin and Zosyn and monitor wound closely. Preoperative antibiotics as per vascular surgery.
Status post Left femoral (profunda) to posterior tibial artery bypass with ipsilateral nonreversed greater saphenous vein conduit on 10/01
Anticoagulation/antiplatelet: IV heparin postoperatively back to Eliquis as of 10/03 with addition of aspirin. Dual therapy to be continued as outpatient
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
Previously on Plavix
Continue statin
Chronic hypoxic/hypercarbic respiratory failure on home O2
COPD
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
Mild exacerbation
Noted to be bronchospastic on exam with productive cough.
Chest x-ray with no acute cardiopulmonary disease.
Dexamethasone to prednisone at 40 mg taper slowly
Continue inhaled corticosteroids and bronchodilators.
BiPAP at night as per pulmonary
Ongoing tobacco use. Counseled about quitting. Provide nicotine patch.
CAD.
Chronic CHF preserved EF.
Paroxysmal atrial fibrillation/flutter.
Weight noted to be up at 78 kg (71 likely dry weight)
Elevated pro CHF BNP close to baseline
No evidence for pulmonary or peripheral edema
Oxygen requirements close to baseline
Continue preadmission diuretic regimen Lasix 60 mg p.o. twice daily
Continue metoprolol, amiodarone, Lipitor.
Continue anticoagulation with Eliquis.
Type 2 diabetes
Hemoglobin A1c 6.7
Hold metformin acutely
Insulin basal bolus protocol with serial Accu-Cheks. Expected hyperglycemia given systemic steroid therapy
Chronic macrocytic anemia. Hemoglobin at the baseline.
History of gastrointestinal hemorrhage.
Monitor hemoglobin while on Eliquis
Continue PPI prophylaxis.
Full code
DVT prophylaxis Eliquis
Anticipated Discharge: Within 24 hours
Subjective/Interval History
-
Date of Service: October 04, 2025
Objective Data
-
Labs:
Laboratory Results
10/04/25
04:43
WBC 17.5 H
Hgb 13.6
Hct 42.6
Plt Count 290
Sodium 135
Potassium 4.1
Chloride 97 L
Carbon Dioxide 38 H
BUN 23 H
Creatinine 0.6 L
Glucose 114 H
Calcium 9.1
Vital Signs:
Vital Signs
Temp Pulse Resp BP Pulse Ox
97.5 F 54 22 108/62 91
10/04/25 11:00 10/04/25 08:10 10/04/25 07:40 10/04/25 08:10 10/04/25 10:16
I&O
10/03/25 10/04/25 10/05/25
06:59 06:59 06:59
Intake Total 350 / 355 970 / 970 720 / 720
Output Total 3425 / 3725 1850 / 1850 1300 / 1300
Balance -3075 / -3370 -880 / -880 -580 / -580
Physical Exam
-
General: Well Developed and No Apparent Distress
HEENT: Normocephalic, Atraumatic and Moist Mucous Membranes
Respiratory: Rhonchi; Negative Wheezes
Cardiac: Regular Rhythm and S1/S2; Negative Murmur, Rub or Gallop
GI: Soft, Nontender, Nondistended and Normal Bowel Sounds; Negative Organomegaly
Rectal: Deferred by Provider
Musculoskeletal: No Clubbing, No Cyanosis and Other (Not palpable dorsal pedis and posterior tibial pulses. Left calf wound with dry eschar)
Skin: Negative Rash
Neuro: Nonfocal/Grossly Intact
[2025-10-04 17:33] LABS: Glucose - Point of Care 293 mg/dl (70-99)
[2025-10-04] MEDS: TOPROL XL 50 MG PO (19:42)
--- NOTE | 2025-10-04 20:40 | PTCARENOTE ---
Pt transferred to unit via wheelchair and assisted to bed x1 assist with rolling walker. Pt on 2L o2 NC. Neurovascular check completed along with initial assessment. Bed in lowest position and call liu within reach.
[2025-10-04 21:30] LABS: Glucose - Point of Care 324 mg/dl (70-99)
[2025-10-04] MEDS: DUONEB INH (21:30)
[2025-10-04] MEDS: PULMICORT INH (21:30)
[2025-10-04] MEDS: ROXICODONE 10 MG PO (22:04)
[2025-10-04] MEDS: NOVOLOG FLEXPEN 10 UNITS SC (22:14)
[2025-10-04] MEDS: REQUIP 0.5 MG PO (22:41)
[2025-10-04] MEDS: LIPITOR 80 MG PO (22:41)
[2025-10-04] MEDS: MELATONIN 5 MG PO (22:41)
[2025-10-05 03:18] VITALS: BP 113/58
[2025-10-05 06:00] VITALS: BMI 24.2
[2025-10-05] MEDS: DUONEB 3 ML INH (07:22)
[2025-10-05] MEDS: PULMICORT 0.25 MG INH (07:22)
[2025-10-05 07:39] LABS: Glucose - Point of Care 173 mg/dl (70-99)
[2025-10-05 07:44] VITALS: BP 143/80
[2025-10-05] MEDS: NOVOLOG FLEXPEN-HIGH RESISTANCE 2 UNITS SC (08:42)
[2025-10-05] MEDS: LASIX 60 MG PO (08:43)
[2025-10-05] MEDS: LOW STRENGTH ASPIRIN 81 MG PO (08:44)
[2025-10-05] MEDS: PACERONE 200 MG PO (08:44)
[2025-10-05] MEDS: NICODERM TRANSDERMAL 21 MG TRANSDERM (08:44)
[2025-10-05] MEDS: ELIQUIS 5 MG PO (08:44)
[2025-10-05] MEDS: PROTONIX 40 MG PO (08:44)
[2025-10-05] MEDS: FOLVITE 1 MG PO (08:45)
[2025-10-05] MEDS: TOPROL XL 50 MG PO (08:45)
[2025-10-05] MEDS: VITAMIN B1 100 MG PO (08:45)
[2025-10-05] MEDS: FEOSOL 325 MG PO (08:45)
[2025-10-05] MEDS: DELTASONE 30 MG PO (08:45)
[2025-10-05] MEDS: HYDROPHOR 1 APPLIC TOPICAL (08:57)
--- NOTE | 2025-10-05 09:08 | CM ---
Addendum entered by Desi Garcia 10/05/25 09:35:
Patient seen at bedside on [address]. Patient states he wants to go home but agreed to consider [facility] and [facility]. CM sent updated referral and patient requested therapy to assess him to see if he could go home. CM will continue to follow
for discharge planning needs.
Plan; SNF vs home with [facility] pending physician and therapy assessments
Original Note:
[facility] just turned patient down, CM will talk to patient about alternatives.
[2025-10-05 11:05] VITALS: BP 129/68
[2025-10-05 11:26] VITALS: BP 129/68; PULSE 71; O2SAT 92
[2025-10-05 12:03] LABS: Glucose - Point of Care 219 mg/dl (70-99)
[2025-10-05 12:05] VITALS: BP 129/68
--- NOTE | 2025-10-05 12:30 | W.PN.HOSP.TC ---
Today's Communication/Plan
-
Discharge planning
Assessment / Plan
Assessment / Plan
Impression
Presentation with worsening of left lower extremity pain and nonhealing wound.
Chronic limb threatening ischemia left lower extremity with nonhealing wound and mild cellulitis.
Mild COPD exacerbation (reports subjective dyspnea while on home O2, bronchospasm on exam)
Conditions prior to admission
PAD.
� Status post right femoral enterectomy with saphenous vein angioplasty and right femoral to popliteal bypass 08/16
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
COPD
History of recurrent right-sided pleural effusion requiring thoracentesis on multiple occasions. Path negative for malignancy
Pulmonary nodule under surveillance.
CAD.
� Status post remote CABG at [facility] [place] with SHEEHAN to LAD
� PCI with unclear details at [facility]
�Out of the hospital STEMI alert 11/18 with no evidence of culprit lesion
Chronic CHF preserved EF
Paroxysmal atrial fibrillation/flutter
Chronic anticoagulation with Eliquis.
History of gastrointestinal bleed: EGD/colonoscopy 11/18 with angioectasia requiring APC and colon polyps
Chronic macrocytic anemia
Hypertension
Diabetes type 2
Hepatitis C treated and cleared infection
Ongoing tobacco use disorder
Imaging
Chest x-ray: No acute cardiopulmonary process
Arterial ultrasound:
1. Right lower extremity: KEREN 1.16, within normal limits. TBI mildly reduced 0.63, improved from prior study (0.53). Multiphasic common femoral and profunda waveforms. Femoral to posterior tibial artery bypass is patent with mild distal anastomotic
velocity elevation 158 cm/s (velocity ratio 2.43), possibly consistent with greater than 50% stenosis. Not significantly changed from prior study. Continuous Doppler waveforms at the posterior tibial artery are multiphasic, at the dorsalis pedis are
monophasic.
2. Left lower extremity: KEREN 0.67. Consistent with moderate arterial deficiency. However, on the prior study KEREN was not obtainable/measurable due to medial calcinosis/noncompressibility of the vessels. Therefore this value may be false. TBI is
0.16, severely reduced, but relatively stable compared to prior study (0.12). Severe left common femoral artery stenosis with likely occlusion, likely unchanged. Superficial femoral artery and popliteal artery appear occluded as well. Continuous
Doppler waveforms the dorsalis pedis and posterior tibial arteries are monophasic.
Abdominal CTA
1. Right leg: Patent right femoral to posterior tibial artery bypass graft redemonstrated.
2. Left leg: Patent stent in the left common femoral artery/profunda femoris. Superficial femoral artery is completely occluded throughout the proximal to mid segments with partial distal reconstitution, worsened compared to prior. The popliteal
artery shows complete occlusion, progressed in extent from prior. Occluded common tibioperoneal trunk, progressed. Below this, there is reconstitution with three-vessel proximal run off with scattered mild to moderate disease.
3. Mild soft tissue/skin irregularity along the posterior left lower extremity/lower calf region with underlying subcutaneous edema, suggesting cellulitis. No overt fluid collections identified.
Echocardiogram 11/18:
Normal left ventricular size and function. Mild concentric left ventricular
hypertrophy. Left ventricular ejection fraction is 50% by visual assessment.
There is basal inferior akinesis. Stage II diastolic dysfunction suggestive of
abnormal relaxation and increased filling pressures.
Mitral valve opens normally. Thickened mitral valve leaflets. Mitral annular
calcification. Trace mitral regurgitation is seen.
Mildly dilated left atrium.
Tricuspid valve opens normally. Mild tricuspid regurgitation. Estimated
pulmonary artery pressure of 44 mmHg. Assuming a right atrial pressure of 8
mmHg.
Dilated right atrium.
Enlarged right ventricular size. Right ventricular hypokinesis.
Since echocardiogram May 2024, there is no significant change.
Plan
PAD with chronic limb threatening extremely the left lower extremity and nonhealing wound with cellulitis.
Imaging as above.
Wound does not look infected. Mild cellulitis improved since admission. Discontinue vancomycin and Zosyn and monitor wound closely. Preoperative antibiotics as per vascular surgery.
Status post Left femoral (profunda) to posterior tibial artery bypass with ipsilateral nonreversed greater saphenous vein conduit on 10/01
Anticoagulation/antiplatelet: IV heparin postoperatively back to Eliquis as of 10/03 with addition of aspirin. Dual therapy to be continued as outpatient
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
Previously on Plavix
Continue statin
Chronic hypoxic/hypercarbic respiratory failure on home O2
Mild acute COPD exacerbation
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
Mild exacerbation
Noted to be bronchospastic on exam with productive cough.
Chest x-ray with no acute cardiopulmonary disease.
Continue steroid taper
Continue inhaled corticosteroids and bronchodilators.
BiPAP at night as per pulmonary
Ongoing tobacco use. Counseled about quitting. Provide nicotine patch.
Patient is in need of oxygen on exertion due to pulse oximetry of 80% on ambulation.
Patient was placed on 3L O2 via nasal cannula with saturation of 95%. Oxygen will help to improve hypoxemia.
Patient is mobile within the home. Albuterol therapy has been discussed and is ineffective in treating hypoxemia-related symptoms.
Oxygen will improve the patient's symptoms.
CAD.
Chronic CHF preserved EF.
Paroxysmal atrial fibrillation/flutter.
Weight noted to be up at 78 kg (71 likely dry weight)
Elevated pro CHF BNP close to baseline
No evidence for pulmonary or peripheral edema
Oxygen requirements close to baseline
Continue preadmission diuretic regimen Lasix 60 mg p.o. twice daily
Continue metoprolol, amiodarone, Lipitor.
Continue anticoagulation with Eliquis.
Type 2 diabetes
Hemoglobin A1c 6.7
Hold metformin acutely
Insulin basal bolus protocol with serial Accu-Cheks. Expected hyperglycemia given systemic steroid therapy
Chronic macrocytic anemia. Hemoglobin at the baseline.
History of gastrointestinal hemorrhage.
Monitor hemoglobin while on Eliquis
Continue PPI prophylaxis.
Full code
DVT prophylaxis Eliquis
Anticipated Discharge: Today
Subjective/Interval History
-
Date of Service: October 05, 2025
Objective Data
-
Vital Signs:
Vital Signs
Temp Pulse Resp BP Pulse Ox
98.1 F 71 16 129/68 92
10/05/25 11:05 10/05/25 11:05 10/05/25 11:05 10/05/25 11:05 10/05/25 11:05
I&O
10/04/25 10/05/25 10/06/25
06:59 06:59 06:59
Intake Total 970 / 970 1920 / 1920
Output Total 1850 / 1850 3225 / 3225
Balance -880 / -880 -1305 / -1305
Physical Exam
-
General: Well Developed and No Apparent Distress
HEENT: Normocephalic, Atraumatic and Moist Mucous Membranes
Respiratory: Rhonchi; Negative Wheezes
Cardiac: Regular Rhythm and S1/S2; Negative Murmur, Rub or Gallop
GI: Soft, Nontender, Nondistended and Normal Bowel Sounds; Negative Organomegaly
Rectal: Deferred by Provider
Musculoskeletal: No Clubbing, No Cyanosis and Other (Not palpable dorsal pedis and posterior tibial pulses. Left calf wound with dry eschar)
Skin: Negative Rash
Neuro: Nonfocal/Grossly Intact
--- NOTE | 2025-10-05 12:48 | CM ---
Addendum entered by Desi Garcia 10/05/25 15:14:
nephew Thaddeus (who he lives with) #[phone].
Addendum entered by Desi Garcia 10/05/25 14:40:
CM spoke with patient daughter and she called to nephew to arrange rock picker. Patient aware of [facility] to follow and nephew to come for transport.
Addendum entered by Desi Garcia 10/05/25 13:11:
accepted for [facility] fax [phone]
Original Note:
Patient seen at bedside, IMM reviewed and signed form placed on chart. Patient reviewed VN options and initially asked for [facility] however, [facility] does not go to his home address. Referral sent to [facility] and await response. CM will continue to follow for
discharge planning needs.
Plan; home with VN; pending acceptance [facility]
--- NOTE | 2025-10-05 12:48 | W.DS.TRANS ---
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
-
Discharge Instructions:
Sleep Apnea Risk Intermediate
Discharge Diagnosis/Procedures PAD.
Chronic left lower extremity wound.
Status post left femoral to posterior bilateral
artery bypass on 10/01
Acute COPD exacerbation
Other conditions:
Chronic hypoxic and hypercarbic respiratory
failure secondary to COPD
CAD
Type 2 diabetes
Chronic anemia
Diet Diabetic, Carb Controlled
Instructions:
Stand-Alone Forms:
Changes to Home Medications: Yes
Discharge Medications:
DC Medications w/original date entered in [employer]
fluticasone fur. 100 mcg-umeclid 62.5 mcg-vilant 25 mcg inhalat.powder (Trelegy Ellipta) 1 inh inhalation R QPM Lung/Breathing Issues 07/25/23
atorvastatin 80 mg tablet 80 mg PO HS High Cholesterol 07/26/23
folic acid 1 mg tablet 1 mg PO DAILY Supplement 07/16/24
amiodarone 200 mg tablet 200 mg PO DAILY Arrhythmia 30 days #30 tabs 07/24/24
apixaban 5 mg tablet (Eliquis) 5 mg PO BID Blood clot prevention/tx 30 days #60 tabs 07/24/24
thiamine HCl (vitamin B1) 100 mg tablet 100 mg PO DAILY Supplement 08/18/24
ferrous sulfate 325 mg (65 mg iron) tablet 325 mg PO DAILY #30 tabs 08/23/24
ropinirole 0.5 mg tablet 0.5 mg PO HS #30 tabs 08/23/24
pantoprazole 40 mg tablet,delayed release 40 mg PO DAILY Gastrointestinal issue 1 month #30 tabs 11/30/24
metformin 500 mg tablet 500 mg PO BID Diabetes 12/02/24
metoprolol succinate 50 mg tablet,extended release 24 hr 50 mg PO BID Heart disease/condition #60 tabs 12/12/24
furosemide 40 mg tablet 60 mg PO BID AT 0800,1600 HF 09/26/25
aspirin 81 mg chewable tablet 81 mg PO DAILY #90 tabs 10/03/25
nicotine 21 mg/24 hr daily transdermal patch 21 mg transdermal DAILY #30 ea 10/05/25
oxycodone 5 mg tablet 5 mg PO Q4HPRN PRN moderate pain #15 tabs 10/05/25
prednisone 10 mg tablet 10 mg PO DIRECTED #9 tabs 10/05/25
Home Medication Changes
Aspirin initiated postoperative
Prednisone taper
Pending Results: No
[2025-10-05] MEDS: NOVOLOG FLEXPEN-HIGH RESISTANCE 4 UNITS SC (14:05)
[2025-10-05] MEDS: ROXICODONE 10 MG PO (14:46)
== END 2025-10-05 15:22 | disposition home health service (06) | DRG 263 ==
LOC: 2 NORTH 16:31
PROVIDERS: Internal Medicine; Nurse Practitioner Acute Care; Physician Assistant Medical; Student in an Organized Health Care Education/Training Program; Surgery Vascular Surgery; ADMITTING PHYSICIAN Hospitalist; ATTENDING PHYSICIAN Internal Medicine; CONSULT PHYSICIAN Internal Medicine Cardiovascular Disease; CONSULT PHYSICIAN Internal Medicine Critical Care Medicine; EMERGENCY PHYSICIAN Emergency Medicine; FAMILY PHYSICIAN Family Medicine; OTHER PHYSICIAN Nurse Practitioner
PROC: 041L09N Bypass Left Femoral Artery to Posterior Tibial Artery with Autologous Venous Tissue, Open Approach (ICD-10-PCS; 2025-10-01)
PROC: 06BQ0ZZ Excision of Left Saphenous Vein, Open Approach (ICD-10-PCS; 2025-10-01)
DX: I70.242 Atherosclerosis of native arteries of left leg with ulceration of calf (principal); J44.1 Chronic obstructive pulmonary disease with (acute) exacerbation; I50.32 Chronic diastolic (congestive) heart failure; L03.116 Cellulitis of left lower limb; J96.12 Chronic respiratory failure with hypercapnia; J96.11 Chronic respiratory failure with hypoxia; R18.8 Other ascites; I70.222 Atherosclerosis of native arteries of extremities with rest pain, left leg; I25.10 Atherosclerotic heart disease of native coronary artery without angina pectoris; I48.0 Paroxysmal atrial fibrillation; D50.9 Iron deficiency anemia, unspecified; I11.0 Hypertensive heart disease with heart failure; E11.51 Type 2 diabetes mellitus with diabetic peripheral angiopathy without gangrene; G47.30 Sleep apnea, unspecified; D53.9 Nutritional anemia, unspecified; Z88.2 Allergy status to sulfonamides; Z79.899 Other long term (current) drug therapy; Z79.01 Long term (current) use of anticoagulants; Z79.84 Long term (current) use of oral hypoglycemic drugs; E78.00 Pure hypercholesterolemia, unspecified; G25.81 Restless legs syndrome; Z99.81 Dependence on supplemental oxygen; F17.210 Nicotine dependence, cigarettes, uncomplicated; R91.1 Solitary pulmonary nodule; I25.2 Old myocardial infarction; F10.10 Alcohol abuse, uncomplicated; I27.81 Cor pulmonale (chronic); J43.9 Emphysema, unspecified; K76.0 Fatty (change of) liver, not elsewhere classified; Z82.49 Family history of ischemic heart disease and other diseases of the circulatory system; Z86.0100 Personal history of colon polyps, unspecified; Z86.73 Personal history of transient ischemic attack (TIA), and cerebral infarction without residual deficits; Z95.1 Presence of aortocoronary bypass graft; Z95.5 Presence of coronary angioplasty implant and graft; G47.33 Obstructive sleep apnea (adult) (pediatric); Z11.52 Encounter for screening for COVID-19
CPT/HCPCS: 35566; 36600; 71046; 75635; 80048; 80053; 82607; 82746; 82805; 82947; 82962; 83036; 83735; 83880; 84100; 85025; 85027; 85610; 85730; 86803; 86850; 86900; 86901; 87502; 87811; 93005; 93306; 93922; 93925; 93970; 94640; 96365; 97116; 97163; 97167; 97530; 99285; 99406; Q9967

== ENCOUNTER 2025-10-12 23:48 | Inpatient (IN) | payer MEDICARE, SELFPAY ==
[2025-10-12 16:05] VITALS: BP 136/70
[2025-10-12 16:58] LABS: Hematocrit 43.6 % (39.0-52.0); Hemoglobin 14.3 g/dL (13.0-18.0); Mean Corp Hgb Conc. 32.8 g/dL (33.0-37.0); Mean Corpuscular Volume 95.0 fL (80.0-94.0); Nucleated Red Blood Cells % 0 % (-); Platelet Count 454 10^3/uL (130-400); Red Cell Dist. Width 13.5 % (11.5-14.5)
[2025-10-12 17:08] LABS: ALT (SGPT) 24 U/L (0-50); AST (SGOT) 22 U/L (17-59); Albumin 4.0 g/dl (3.5-5.0); Alkaline Phosphatase 138 U/L (38-126); Blood Urea Nitrogen 20 mg/dl (9-20); Calcium 10.0 mg/dl (8.4-10.2); Carbon Dioxide 32 mmol/L (22-30); Chloride 87 mmol/L (98-107); Glucose 280 mg/dl (70-99); Potassium 4.1 mmol/L (3.5-5.1); Sodium 130 mmol/L (135-145); Total Protein 6.9 g/dl (6.3-8.2); eGFR > 60.00
[2025-10-12 20:16] VITALS: BP 159/88
[2025-10-12 20:41] VITALS: BMI 24.7
--- NOTE | 2025-10-12 20:41 | ED.GENMED ---
History of Present Illness
General
Chief Complaint: Skin Problem
Source: patient and records
Time Seen by Provider: 10/12/25 20:23
History of Present Illness
History of Present Illness:
This patient is a 74-year-old male who was admitted earlier this month with left lower extremity cellulitis, known peripheral arterial disease, who had a femoropopliteal bypass on October 01. He left the hospital on October 05 home at that time.
He states that since he left his leg has been hurting him and is getting worse. He denies fever, chills, drainage, chest pain, shortness of breath, abdominal pain, nausea, vomiting, numbness. He states that he is able to walk at home. He has not
taken a shower since he was discharged because he was afraid to given that there was dressing in place at the left thigh area. He is vague regarding the pain and location states 'I do not know it just kind of hurts', and denies new swelling.
Past History
Past History
ED Past Medical History: COPD, HTN, Hypercholesterolemia, NIDDM, KS, Other ( peripheral arterial disease) and Other (TIA, diabetes mellitus type 2, hyperlipidemia, COPD, CAD, KS with CABG, hypertension, sleep apnea, hepatitis C)
ED Past Surgical History: Appendectomy, Cardiac (stents. Has had several stents. Last heart surgery 1997.), Orthopedic, Tonsilectomy and Other
Social History
Tobacco: Smoker
Alcohol: Occasional
Drug: Marijuana
Personal: Single
Living: with family
Employment: Disabled
Family History
Family History: CAD
Phy Exam
Physical Exam
Physical Exam:
GENERAL: Alert , in no apparent distress
EYE: pupils equal and reactive
NECK: Supple, no significant adenopathy.
ENT: o/p clr, mmm.
CARDIAC: Regular rate and rhythm .
LUNGS: Equal breath sounds bilaterally, no acute respiratory distress, occasional wheezing noted
ABDOMEN: Soft, without focal tenderness, no r/g
NEUROLOGICAL: Alert and oriented, no focal neuro deficits
SKIN: Warm and dry, skin intact. There is mild erythema noted L lower extrem, distal to knee, medial aspect lower leg without assoc warmth/ttp/drainage or other abnl. [place] in place throughout L le fem pop site, no drainage, incisions clean and
dry. Scattered postop bruising.
MUSCULOSKELETAL: Doppler bedside demonstrates pulses DP and PT on L le. No pallor or cyanosis. FROM of LE. There is mild LE swelling noted, partic at L inner thigh area.
PSYCH: Normal and appropriate interaction.
Sepsis
Sepsis Screening
Sepsis Assessment: Sepsis Ruled Out
Sepsis Screen
Sepsis Screen: Sepsis Ruled Out
Date: 10/13/25
Time: 18:28
Course
Orders/Labs/Results
Orders:
Orders
10/12/25 16:22
Complete Blood Count/With Diff Urgent
Comprehensive Metabolic Panel Urgent
Blood Culture Urgent
REUBEN Source: Blood/Venous
Specimen Description:
10/12/25 20:46
US Periph Venous LOWER Ext LT Urgent
Comment:
Reason For Exam: pain, attn also to L prox thigh swelling at incisi
10/12/25 22:32
CeFAZolin 1 GRAM [Ancef] 1 gram in 5 ml IV NOW
10/12/25 22:55
Admit/Transfer Patient As Directed
Co-Sign Provider:
Level of Care: Inpatient admission
Assign to:: Telemetry
Physician / Group: Vinicio
Diagnosis: LLE Cellulitis
Reason for Telemetry: Arrhythmia
Date to Stop Telemetry: 10/15/25
Time to Stop Telemetry: 11:00
Reason for Hospitalization: IV abx
Expected length of stay greater than two midnights?: Yes
ELOS- Estimated Length of Stay in days: 3
I certify the patient meets the requirements for IP care: Yes
CeFAZolin 2 GRAM [Ancef] 2 grams in 10 ml IV NOW
10/12/25 22:56
PRN Pain Medication Management As Directed
May give lesser potent ordered pain med per pt: Yes
preference::
Protocol:: Medication orders for pain may be administered in a
manner that supports deferring to patient preference
when the pt is:
- Requesting an ordered lesser potent pain medication.
Least to most potent pain medications are defined
as: acetaminophen < NSAID < tramadol < opioids
(morphine, oxycodone, hydromorphone).
- Requesting a lesser dose of the same medication IF
ORDERED.
- Requesting a less intrusive route of administration
if both routes are prescribed by the provider (PO <
IV).
10/12/25 23:00
Code Status As Directed
Resuscitation Status: Full Code
10/13/25 00:10
CR Heel/os Calcis - Left 2 Vw* Urgent
Reason For Exam: left heel pain
10/13/25 03:06
Acetaminophen [Tylenol] 650 mg PO Q4HPRN PRN
Dextrose 50%-Water [Dextrose 50% Syringe] 12.5 grams IV [id number] PRN
Glucagon [GlucaGen] 1 mg IM PRN PRN
Ipratropium/Albuterol Sulfate [Duoneb] 3 ml INH R Q4HPRN PRN
Oxycodone [Roxicodone] 5 mg PO Q4HPRN PRN moderate pain
10/13/25 03:06
Case Management Consult Once
Case Management Consult: Discharge Planning
Vascular Surgery Consult Routine
Consulting Provider: Kristen Mcgraw
Was physician already notified: Yes
Activity As Directed
Activity Level: Out of Bed-Early Mobility
With Assistance
Bedside Glucose Monitoring As Directed
Frequency: AC&HS
Additional Instructions:: Change to q6h if pt on TPN, tube feeding or not eating
Bladder Scan As Directed
Follow Bladder Retention/Intermittent Cath Algorithm?: Yes
PRN if no void in __ hours: 6
Frequency: Per Retention Algorithm
If Bladder Scan Result >: 400
then:: Straight cath
Heel Pressure Device As Directed
Type of boot: Heel lift boot
I&O [Intake/ Output] As Directed
Frequency: q12h
Straight Cath As Directed
Frequency: Per Retention Algorithm
Additional Instructions: straight cath as needed per acute urinary retention algorithm for 24 hrs
Additional Instructions: for bladder scan greater than 400 mL
Vital Signs As Directed
Frequency: Per unit guidelines
Weight As Directed
Frequency: Daily
Ot Eval And Treat Routine
Pt Eval And Treat Routine
Activity Level: Out of Bed-Early Mobility
10/13/25 06:02
Basic Metabolic Panel IN AM
Complete Blood Count/No Diff IN AM
10/13/25 07:30
Insulin Aspart Corrective Low [Novolog Flexpen-Low Resistance] See Protocol SC AC
10/13/25 08:00
Amiodarone [Pacerone] 200 mg PO DAILY
Apixaban [Eliquis] 5 mg PO BID
Aspirin Chewable [Low Strength Aspirin] 81 mg PO DAILY
Budesonide [Pulmicort] 0.5 mg INH R BID
CeFAZolin 2 GRAM [Ancef] 2 grams in 10 ml IV Q8H
FOLic ACID [Folvite] 1 mg PO DAILY
Ferrous Sulfate [Feosol] 325 mg PO DAILY
Furosemide [Lasix] 60 mg PO BID AT 0800,1600
Guaifenesin [Mucinex] 600 mg PO Q12
Ipratropium/Albuterol Sulfate [Duoneb] 3 ml INH R QID
Metoprolol [Lopressor] 50 mg PO BID
Pantoprazole [Protonix] 40 mg PO DAILY
Thiamine HCl [Vitamin B1] 100 mg PO DAILY
10/13/25 22:00
Atorvastatin [Lipitor] 80 mg PO HS
Ropinirole [Requip] 0.5 mg PO HS
10/15/25 11:00
DC Protocol for Telemetry ONCE
Abnormal Lab Results
10/12/25
16:22
WBC 18.5 H 10^3/uL
(4.8-10.8)
RBC 4.59 L 10^6/uL
(4.70-6.10)
MCV 95.0 H fL
(80.0-94.0)
MCH 31.2 H pg
(27.0-31.0)
MCHC 32.8 L g/dL
(33.0-37.0)
Plt Count 454 H 10^3/uL
(130-400)
Abs Immat Gran (auto) 0.1 H 10^3/uL
(0-0.05)
Absolute Neuts (auto) 15.7 H 10^3/uL
(1.4-6.5)
Absolute Monos (auto) 1.0 H 10^3/uL
(0.1-0.6)
Immature Gran % 0.7 H %
(0-0.5)
Neutrophils % 85.3 H %
(42.2-75.2)
Lymphocytes % 7.3 L %
(20.5-51.1)
Sodium 130 L mmol/L
(135-145)
Chloride 87 L mmol/L
(98-107)
Carbon Dioxide 32 H mmol/L
(22-30)
Glucose 280 H mg/dl
(70-99)
Alkaline Phosphatase 138 H U/L
(38-126)
10/12/25 16:22
10/12/25 16:22
Vital Signs
Initial and Last Documented VS:
Initial Vital Signs
Temp Pulse Resp BP Pulse Ox
97.5 F 93 20 136/70 96
10/12/25 16:05 10/12/25 16:05 10/12/25 16:05 10/12/25 16:05 10/12/25 16:05
Last Documented Vital Signs
Temp Pulse Resp BP Pulse Ox
97.5 F 61 20 122/57 97
10/13/25 16:47 10/13/25 17:23 10/13/25 16:47 10/13/25 17:23 10/13/25 17:45
*Pulse Oximetry
SaO2: 96
Oxygen Mode of Delivery: Room air
Patient hypoxic: no
*Critical Care Note
Total Time (30-74mins, 75-104mins- exclusive of procedures): Not Applicable
Update Note
Update Note:
Patient presents to the Emergency Department with ___leg pain
Number and Complexity of Problems Addressed at the Encounter
� Chronic conditions affecting care:
� Acute Exacerbation and/or Progression of Chronic Illness:
� Differential Diagnosis includes: But not limited to bypass occlusion, hematoma, seroma, cellulitis, abscess, etc. etc.
Amount and/or Complexity of Data to be Reviewed and Analyzed
� I performed an independent evaluation of and my interpretation is:
EKG:
CT:
Xrays:
Laboratory Studies: White blood cell count elevation noted however suspect related to recent steroid use and improved from prior, thrombocytosis may be an acute phase reactant, new mild hyponatremia
Other:US The left common femoral, femoral, popliteal, and posterior tibial veins are patent. No sonographic evidence for deep venous thrombosis.
Limited visualization of the left peroneal vein.
Complex collection in the left thigh near the incision site measuring approximately 13 cm in length, which may represent a postoperative seroma or hematoma
� Review of other/old records reveals: Discharge summary from October 05 reviewed by me that I thought patient had a left femoral to posterior tibial artery bypass on . Placed back on L with addition of aspirin.
� Clinical information was obtained by an independent historian:
� Prescriptions/Medications Considered but not given:
� Further testing considered but not performed:
Risk of Complications and/or Morbidity or Mortality of Patient Management
� Social determinants of health affecting care:
� Discussion with other providers (PCP, Hospitalists, Consultants, etc):
� Escalation of care including admission/observation vs risk of discharge considered: Case discussed with on-call vascular surgeon, Dr. Kristen Mcgraw, I also shared with her photos of patient's entire lower extremity as well as
ultrasound report. She agrees that by past 6 occlusion, abscess, etc. very low on the differential. Hematoma noted and confirmed by ultrasound. Lower leg cellulitis noted unclear how acute versus subacute/chronic. She recommends patient be
started on IV antibiotics (ancef) with overnight observation. Patient may need reconsideration of discharge placement to home versus skilled facility. Of note, I see that pt was on vanco/zosyn bfore d/c, but not continued on abx.
ED Attending Note
-
Portions of this chart may have been created with voice recognition software.� Occasional wrong word or��sound alike� substitutions may have occurred due to the inherent limitations of voice recognition software.
Discharge Plan
Departure
Patient Disposition: Admit
Date of Disposition: 10/12/25
Time of Disposition: 22:15
Presentation/result/management discussed w/ accepting MD/DO: Hospitalist
Condition: Good
Discharge Problem:
Cellulitis
Interventions
Interventions:
*General Assessment Last Done: 10/12/25 16:05
*Neglect/Abuse Screening Last Done: 10/12/25 16:05
*ED COVID-19 Vaccine History Last Done: 10/12/25 20:41
*ED Influenza Vaccine History Last Done: 10/12/25 20:41
[facility] Risk Assessment Tool Last Done: 10/13/25 08:00
*Risk Screen - Suicide (C-SSRS) Last Done: 10/13/25 16:03
*Nursing Disposition Last Done: 10/13/25 16:03
ED-Skin Assessment Last Done: 10/13/25 08:23
Discharge Date and Time
Discharge Date/Time: 10/13/25 16:19
[2025-10-12 21:34] VITALS: BP 125/66
[2025-10-12 22:00] VITALS: BP 99/86
--- NOTE | 2025-10-12 22:34 | HPS.HSE ---
Family Physician
-
Family Physician: NOT KNOW UNKNOWN - PT DOES
Chief Complaint
-
Left leg pain and redness
History of Present Illness
Patient is a 74 y/o male past medical history of ASCVD, CHF, A-fib, DM and COPD who was recently admitted from 09/26 to 10/05 for an nonhealing wound of the left leg and underwent left lower extremity bypass surgery on 10/01, now presenting with
increasing redness and pain of the left leg. Patient reports associated increased swelling of the leg. He denies any fevers, sweats or chills.
-
Medical History
Past Medical History
Past Medical History: Reports Other
Additional Past Medical History:
ASCVD (CAD, PAD, CVA)
Chronic HFpEF
Paroxysmal Atrial Fibrillation
Diabetes Mellitus, Type II
Hypertension
COPD
Hepatitis C
MARIJA
DM-II
Past Surgical History: Reports Other
Additional Past Surgical History:
CABG
PTCA with Stent
Right Femoral Endarterectomy / Bypass
Left Femoral Profunda to Posterior Tibial Artery Bypass
Social History
Tobacco: Smoker (Current every day smoker. > 50 pack years total use.)
Alcohol: Occasional
Living: With Family
Family History
Family History: Not pertinent
Allergies / Home Medications
Allergies reflects when Allergies were last updated in [facility].
Home Medications with original date entered in [facility]
Allergy/Medication List:
Allergies
Allergy/AdvReac Type Severity Reaction Status Date / Time
Sulfa (Sulfonamide Allergy hives,itchi Verified 10/12/25 16:09
Antibiotics) ng
Home Medications
fluticasone fur. 100 mcg-umeclid 62.5 mcg-vilant 25 mcg inhalat.powder (Trelegy Ellipta) 1 inh inhalation R QPM Lung/Breathing Issues 07/25/23
atorvastatin 80 mg tablet 80 mg PO HS High Cholesterol 07/26/23
folic acid 1 mg tablet 1 mg PO DAILY Supplement 07/16/24
amiodarone 200 mg tablet 200 mg PO DAILY Arrhythmia 30 days #30 tabs 07/24/24
apixaban 5 mg tablet (Eliquis) 5 mg PO BID Blood clot prevention/tx 30 days #60 tabs 07/24/24
thiamine HCl (vitamin B1) 100 mg tablet 100 mg PO DAILY Supplement 08/18/24
ferrous sulfate 325 mg (65 mg iron) tablet 325 mg PO DAILY #30 tabs 08/23/24
ropinirole 0.5 mg tablet 0.5 mg PO HS #30 tabs 08/23/24
pantoprazole 40 mg tablet,delayed release 40 mg PO DAILY Gastrointestinal issue 1 month #30 tabs 11/30/24
metformin 500 mg tablet 500 mg PO DAILY Diabetes 12/02/24
furosemide 40 mg tablet 60 mg PO BID AT 0800,1600 HF 09/26/25
aspirin 81 mg chewable tablet 81 mg PO DAILY #90 tabs 10/03/25
nicotine 21 mg/24 hr daily transdermal patch 21 mg transdermal DAILY #30 ea 10/05/25
oxycodone 5 mg tablet 5 mg PO Q4HPRN PRN moderate pain #15 tabs 10/05/25
prednisone 10 mg tablet 10 mg PO DIRECTED #9 tabs 10/05/25
metoprolol tartrate 50 mg tablet 50 mg PO BID 10/12/25
Review of Systems
-
A 12 point ROS was completed and negative except as noted: Yes
Constitutional: Denies Fever or Chills
Respiratory: Reports Cough; Denies Trouble Breathing
Cardiac: Denies Chest Pain or Palpitations
Abdomen/GI: Denies Abdominal Pain, Nausea or Vomiting
Physical Exam
Vital Signs
Vital Signs
Temp Pulse Resp BP Pulse Ox
97.5 F 79 16 159/88 96
10/12/25 16:05 10/12/25 20:30 10/12/25 20:30 10/12/25 20:16 10/12/25 20:45
Physical Exam
General: Comfortable and Conversant
HEENT: Anicteric and Moist mucous membranes
Respiratory: Other (Coarse breath sounds throughout, few scattered wheezes, no use of accessory muscles)
Cardiac: S1/S2 and Regular Rhythm
GI: Soft and Non Tender
Musculoskeletal: No Clubbing and No Cyanosis
Skin: Warm and Other (LLE: Moderate erythema extending from ankle to the just below the knee with increased warmth to touch. Multiple stable lines without drainage. Ecchymosis to left medial thigh and groin area)
Neuro: Awake, Alert, Oriented and Nonfocal/grossly intact
Psych: Calm
Laboratory Results
-
10/12/25 16:22
10/12/25 16:22
Laboratory Results
Total Bilirubin 0.9 mg/dl (0.2-1.3) 10/12/25 16:22
AST 22 U/L (17-59) 10/12/25 16:22
ALT 24 U/L (0-50) 10/12/25 16:22
Alkaline Phosphatase 138 U/L (38-126) H 10/12/25 16:22
Data Reviewed
-
Lab Data: Labs Reviewed by me
Old Records: Reviewed
Impression/Plan
-
Left Lower Extremity Cellulitis
-Continue Ancef
Recent Left Fem-Pop Bypass
-Peripheral Vascular US: Complex collection in the left thigh near the incision site measure approximately 13cm, which may represent a postoperative seroma or hematoma
-Hgb is stable compared to pre-op therefore suspect more likely seroma
-Consult Vascular Surgery
Hyponatremia, mild
-Continue to trend
ASCVD (CAD, PAD, CVA)
-Continue aspirin
-Continue atorvastatin
Chronic HFpEF
-Continue Lasix
-Monitor Daily Weights
Paroxysmal Atrial Fibrillation
-Continue Eliquis
-Continue metoprolol and amiodarone
Diabetes Mellitus, Type II
-HgbA1c 6.7
-Hold metformin
-Monitor sugars and continue coverage insulin
Essential Hypertension
-Continue metoprolol
COPD, mild acute exacerbation
-Recently completed coarse of steroids
-Continue Pulmicort Neb and DuoNeb QID/PRN in place of Trelegy
Tobacco Use Disorder
-Patient reports smoking 1 pack per week
-Encourage smoking cessation
-Avoid nicotine patch as it can prevent wound healing due to vasoconstriction
DVT proph: Eliquis
Code Status: Full Code
--- NOTE | 2025-10-12 22:42 | W.PN.UPDATE ---
Update Note
Progress Note Update
Patient seen in conjunction with nurse practitioner, I agree with the findings on exam physical and ankle COVID test would not plan unless stated otherwise.
Briefly, patient is a 74-year-old male with past medical history significant for CAD, CHF with preserved ejection fraction, paroxysmal atrial fibrillation on anticoagulation, hypertension, type 2 diabetes not requiring insulin, COPD and ongoing
tobacco use who presents to the emergency department left leg pain.
Patient was seen in the hospital recently with chronic left lower extremity cellulitis. At the time was diagnosed with nonhealing wound and was found to have peripheral arterial disease with occlusion in the left lower extremity status post
femoropopliteal bypass with good outcome. Was in mild COPD exacerbation and was treated for that and the cellulitis at the same time. Patient now comes to the emergency department with left lower extremity pain.
In the emergency department he was afebrile, blood pressure was 160/80 with a pulse of 79 and oxygen saturation of 96%. CBC shows a persistently elevated leukocytosis to 18.5, hemoglobin and platelets were normal and unchanged from prior.
Electrolytes and BUN and creatinine were unremarkable glucose was 280.
Patient had ultrasound of the lower extremities which showed left common femoral, femoral, popliteal, and posterior tibial veins are patent. No sonographic evidence for deep venous thrombosis.
Limited visualization of the left peroneal vein. Complex collection in the left thigh near the incision site measuring approximately 13 cm in length, which may represent a postoperative seroma or hematoma.
On my examination patient does circumferential erythema starting from the heel to the knee. The suture sites are clean dry and intact without any drainage. Up on the medial thigh degrees mild to minimal surrounding erythema at the suture site but
again no obvious collection that is drainable and no leakage. Patient had notable tenderness at the tip of the left heel. Palpation revealed no fluid collection.
Assessment and plan
Left leg pain secondary to complex left thigh fluid collection proximately 13 cm in length which may represent seroma/hematoma and less likely an infection but this cannot be ruled out entirely. This case was discussed with vascular surgery who
recommended overnight Ancef and observation.
�[facility]
� Patient is afebrile, has present leukocytosis and no obvious collection, hold off on blood cultures for now
� Per vascular recommendation will continue with full dose Ancef 2 g every 8 hours, blood cultures afebrile
� MRSA swab
� Will obtain an x-ray of the left foot to eval for any periosteal findings suggestive of osteomyelitis
� Vascular surgery consult
� Pain control, application of boots in the left foot
� Will continue his aspirin and anticoagulation, hemoglobin is stable and there is no signs of active bleeding, fluid collection likely seroma.
Atrial fibrillation
� Continue amiodarone
� Continue Eliquis 5 mg p.o. twice daily
� Continue metoprolol titrate 50 mg p.o. twice daily
Diabetes
� Sliding scale insulin
COPD�currently satting 90% on room air without any acute symptoms
� Continue as needed oxygen to keep sats greater than 88%
� Continue Trelegy and as needed nebs
DVT prophylaxis�on apixaban
CODE STATUS�full code
[2025-10-12 23:00] VITALS: BP 134/112
[2025-10-12] MEDS: ANCEF 10 IV (23:39)
[2025-10-13] VITALS (21 sets, daily range): BP systolic 91–128; BP diastolic 53–88; PULSE 62–64; O2SAT 95–96; BMI 23.4
[2025-10-13 06:13] LABS: Hematocrit 40.9 % (39.0-52.0); Hemoglobin 13.8 g/dL (13.0-18.0); Mean Corp Hgb Conc. 33.7 g/dL (33.0-37.0); Mean Corpuscular Volume 96.0 fL (80.0-94.0); Platelet Count 391 10^3/uL (130-400); Red Cell Dist. Width 13.6 % (11.5-14.5)
[2025-10-13 06:24] LABS: Blood Urea Nitrogen 16 mg/dl (9-20); Calcium 9.6 mg/dl (8.4-10.2); Carbon Dioxide 38 mmol/L (22-30); Chloride 94 mmol/L (98-107); Estimated Creatinine Clearance 98 ml/min; Glucose 149 mg/dl (70-99); Potassium 3.8 mmol/L (3.5-5.1); Sodium 134 mmol/L (135-145); eGFR > 60.00
[2025-10-13] MEDS: DUONEB 3 ML INH ×4 (08:13→19:37)
[2025-10-13] MEDS: PULMICORT 0.5 MG INH ×2 (08:13→19:37)
--- NOTE | 2025-10-13 08:59 | CM ---
Consult received and chart reviewed
Spoke with patient at ED bedside
He lives with his nephew Thaddeus ( his twin sister's son; phone number [phone]) in an apartment
[address]
[facility]
14 steps to enter
Was here 09/27-10/05 dc home with [facility]
Independent with ADLs and able to do 14 steps slowly
DMe home O2 via [employer]
PCP [facility]
Katia in [place]
Active with [facility]
fax number [phone]
referral sent via [employer]
no hx of SNF : Cm discussed with Ross about considering going to SNF if needed. Pt does NOT want to go to SNF but would rather go home with HHC
DCP is to go home with [facility]
Family can provide transportation
Galindor Candace in [place]
Sister Radha in [facility]
Cm will continue to follow up for dcp needs
[2025-10-13] MEDS: ROXICODONE 5 MG PO (09:00)
[2025-10-13] MEDS: FEOSOL 325 MG PO (09:00)
[2025-10-13] MEDS: PACERONE 200 MG PO (09:01)
[2025-10-13] MEDS: LASIX 60 MG PO ×2 (09:01→17:23)
[2025-10-13] MEDS: LOW STRENGTH ASPIRIN 81 MG PO (09:02)
[2025-10-13] MEDS: LOPRESSOR 50 MG PO (09:02)
[2025-10-13] MEDS: FOLVITE 1 MG PO (09:03)
[2025-10-13] MEDS: ANCEF 10 IV (09:03)
[2025-10-13] MEDS: PROTONIX 40 MG PO (09:03)
[2025-10-13] MEDS: VITAMIN B1 100 MG PO (09:03)
[2025-10-13] MEDS: MUCINEX 600 MG PO (09:03)
[2025-10-13] MEDS: ELIQUIS 5 MG PO ×2 (09:04→20:11)
[2025-10-13] MEDS: NOVOLOG FLEXPEN-LOW RESISTANCE SC ×2 (09:06→13:56)
[2025-10-13 09:07] LABS: Glucose - Point of Care 175 mg/dl (70-99)
[2025-10-13] MEDS: VANCOCIN 540 MG IV (09:10)
--- NOTE | 2025-10-13 09:29 | PHA.VAN.IN ---
Assessment
- Assessment
Renal Function: Appears similar to baseline
AUC Dosing Plan
- Dosing Variables
Dosing Weight (kg): 78
Dosing CrCl (ml/min): 98
Vd coefficient (L/kg): 0.7
- Empiric Dosing
Initial / Loading Dose: VANCO 2000MG X1
Maintenance Regimen: VANCO 1000MG Q12H
Estimated AUC (mcg*h/mL): 446
Estimated Peak (mcg*h/mL): 28.5
Estimated Trough (mcg/ml): 11.1
Estimated Half Life (H): 8.1
- Monitoring
No levels ordered at this time: CONSIDER LEVELS AT STEADY STATE
Pharmacokinetics Vancomycin I
- -
Patient Age: 74
Patient Sex: Male
Vancomycin Day #: 1
Indication: Skin And Soft Tissue
Requesting Provider: DR. WEST
Pertinent Antimicrobial Allergies:
SULFA (HIVES, ITCHING
Height / Weight:
Height 5 ft 10 in
Actual Weight 78 kg
Pertinent Past Medical History: DM, NONHEALING WOUND, 10/01 LLE BYPASS
- Vital Signs / Lab Results
Temp Pulse Resp BP Pulse Ox
98.6 F 76 26 127/61 97
10/13/25 08:23 10/13/25 09:02 10/13/25 08:23 10/13/25 09:02 10/13/25 08:23
Lab Results - Hematology
10/12/25 10/13/25
16:22 06:02
WBC 18.5 H 18.2 H
Lab Results - Chemistry
10/12/25 10/13/25
16:22 06:02
BUN 20 16
Creatinine 1.0 0.7
Estimated Creat Clear 98
Albumin 4.0
--- NOTE | 2025-10-13 13:28 | W.PN.HOSP.TC ---
Today's Communication/Plan
-
IV antibiotics
Assessment / Plan
Assessment / Plan
Physical exam:
General: Acutely ill
HEENT: Normocephalic, Atraumatic and Moist Mucous Membranes
Respiratory: Clear to Auscultation; Negative Wheezes, Rales or Rhonchi
Cardiac: Regular Rhythm and S1/S2
GI: Soft, Nontender and Nondistended
Musculoskeletal: Left lower extremity erythema tenderness and warmth and postop surgical findings. No Clubbing, No Cyanosis and No Edema
Neuro: Awake, Alert and Oriented, no neurological deficits
Psych: Calm
A/P:
Left Lower Extremity Cellulitis
- Change antibiotics to IV Zosyn and vancomycin
- WBC 18.2 from 18.5 yesterday
- Continue to monitor temperature curve, WBC trend, local signs of infection
- Vascular surgery consult pending
-Pain control
- Discussed with daughter over the phone today
Recent Left Fem-Pop Bypass with fluid collection postop
-Peripheral Vascular US: Complex collection in the left thigh near the incision site measure approximately 13cm, which may represent a postoperative seroma or hematoma
-Hgb is stable compared to pre-op, unclear if seroma versus hematoma versus abscess versus other
Hyponatremia, mild
-Continue to trend
ASCVD (CAD, PAD, CVA)
-Continue aspirin
-Continue atorvastatin
Chronic HFpEF
-Continue Lasix
-Monitor Daily Weights
Paroxysmal Atrial Fibrillation
-Continue Eliquis
-Continue metoprolol and amiodarone
Diabetes Mellitus, Type II
-HgbA1c 6.7
-Hold metformin
-Monitor sugars and continue coverage insulin
Essential Hypertension
-Continue metoprolol
COPD, mild acute exacerbation
-Recently completed coarse of steroids
-Continue Pulmicort Neb and DuoNeb QID/PRN in place of Trelegy
Tobacco Use Disorder
-Patient reports smoking 1 pack per week
-Encourage smoking cessation
-Avoid nicotine patch as it can prevent wound healing due to vasoconstriction
DVT proph: Eliquis
Code Status: Full Code
Total time spent on today's encounter was 52 minutes which included time spent in counseling the patient/family regarding diagnosis and treatment plan as listed above, goals of care, and symptom management. Case was discussed with nursing staff,
specialists, and care coordinators/case management. All labs and imaging personally reviewed by me. Remainder the time spent in detailed review of previous records, lab data, imaging, and other medical provider documentation.
Anticipated Discharge: > 48 hours
Subjective/Interval History
-
Date of Service: October 13, 2025
Patient still having redness and discomfort in the left lower extremity. On supplemental oxygen. No chest pain. Afebrile
Objective Data
-
Labs:
Laboratory Results
10/13/25
06:02
WBC 18.2 H
Hgb 13.8
Hct 40.9
Plt Count 391
Sodium 134 L
Potassium 3.8
Chloride 94 L
Carbon Dioxide 38 H
BUN 16
Creatinine 0.7
Glucose 149 H
Calcium 9.6
Vital Signs:
Vital Signs
Temp Pulse Resp BP Pulse Ox
98.6 F 57 16 127/61 96
10/13/25 08:23 10/13/25 11:41 10/13/25 11:41 10/13/25 09:02 10/13/25 11:41
I&O
10/12/25 10/13/25 10/14/25
06:59 06:59 06:59
Output Total 300 / 300
Balance -300 / -300
[2025-10-13] MEDS: ZOSYN IV (13:59)
--- NOTE | 2025-10-13 13:59 | EDRN ---
the pt refused 1000 dose of zosyn and refused to allow this RN to check his blood glucose, this RN notified the provider, this RN attempted to educate the pt on the importance of antibiotic adherence
[2025-10-13] MEDS: MIRALAX PO (16:01)
--- NOTE | 2025-10-13 16:03 | EDRN ---
this RN called the receiving unit and notified them that paper report was going to be tubed up
[2025-10-13 16:42] LABS: Glucose - Point of Care 165 mg/dl (70-99)
[2025-10-13] MEDS: FLUSH (NSS) 1 FLUSH IV ×2 (17:24→17:58)
[2025-10-13] MEDS: ZOSYN 50 IV ×2 (17:24→21:57)
--- NOTE | 2025-10-13 17:49 | PTCARENOTE ---
Received pt from ER via stretcher, accompanied by ER staff. Pt AAO x3, CAMPBELL well, ambulatory to bed. VSS. Placed on telemetry:NSR. On room air- pulse ox 97%, no SOB noted. Abd soft, rounded, to start 2000 layla diet. Voiding clear yellow urine in
urinal. LLE reddened with large ecchymotic areas lt thigh, 5 medial LLLE incisions from groin to Lt medial calf- remberto intact.ed areas Rt lower leg. Oriented to 4east, currently resting in bed. Will continue to monitor.
[2025-10-13] MEDS: VANCOCIN 200 IV (17:58)
[2025-10-13] MEDS: NOVOLOG FLEXPEN-LOW RESISTANCE 1 UNITS SC (18:02)
[2025-10-13] MEDS: MUCINEX PO (19:58)
[2025-10-13] MEDS: LOPRESSOR PO (20:05)
[2025-10-13] MEDS: SENOKOT 8.6 MG PO (20:11)
[2025-10-13 21:34] LABS: Glucose - Point of Care 194 mg/dl (70-99)
[2025-10-13] MEDS: LIPITOR 80 MG PO (21:57)
[2025-10-13] MEDS: REQUIP 0.5 MG PO (21:57)
[2025-10-14] MEDS: ROXICODONE 5 MG PO (00:52)
[2025-10-14 03:47] VITALS: BP 121/65
[2025-10-14] MEDS: ZOSYN 50 IV ×4 (04:23→21:42)
[2025-10-14 05:51] VITALS: BMI 23.4
[2025-10-14] MEDS: VANCOCIN 200 IV ×2 (05:55→17:10)
[2025-10-14 07:00] VITALS: BP 121/69
[2025-10-14 07:03] LABS: Hematocrit 41.8 % (39.0-52.0); Hemoglobin 13.6 g/dL (13.0-18.0); Mean Corp Hgb Conc. 32.5 g/dL (33.0-37.0); Mean Corpuscular Volume 96.5 fL (80.0-94.0); Nucleated Red Blood Cells % 0 % (-); Platelet Count 389 10^3/uL (130-400); Red Cell Dist. Width 13.6 % (11.5-14.5)
[2025-10-14 07:04] LABS: Glucose - Point of Care 188 mg/dl (70-99)
[2025-10-14 07:36] LABS: Blood Urea Nitrogen 15 mg/dl (9-20); Calcium 8.9 mg/dl (8.4-10.2); Carbon Dioxide 33 mmol/L (22-30); Chloride 92 mmol/L (98-107); Estimated Creatinine Clearance 77 ml/min; Glucose 134 mg/dl (70-99); Potassium 3.8 mmol/L (3.5-5.1); Sodium 133 mmol/L (135-145); eGFR > 60.00
[2025-10-14] MEDS: PULMICORT INH (08:15)
[2025-10-14] MEDS: DUONEB INH (08:15)
[2025-10-14] MEDS: LOPRESSOR 50 MG PO ×2 (08:16→20:45)
[2025-10-14] MEDS: ELIQUIS 5 MG PO ×2 (08:16→20:46)
[2025-10-14] MEDS: FOLVITE 1 MG PO (08:16)
[2025-10-14] MEDS: VITAMIN B1 100 MG PO (08:16)
[2025-10-14] MEDS: PACERONE 200 MG PO (08:17)
[2025-10-14] MEDS: SENOKOT PO ×2 (08:17→21:26)
[2025-10-14] MEDS: FEOSOL 325 MG PO (08:17)
[2025-10-14] MEDS: LASIX 60 MG PO ×2 (08:17→15:45)
[2025-10-14] MEDS: PROTONIX 40 MG PO (08:17)
[2025-10-14] MEDS: MIRALAX PO (08:18)
[2025-10-14] MEDS: NOVOLOG FLEXPEN-LOW RESISTANCE 188 UNITS SC (08:18)
[2025-10-14] MEDS: LOW STRENGTH ASPIRIN 81 MG PO (08:18)
[2025-10-14] MEDS: MUCINEX 600 MG PO ×2 (08:18→20:46)
--- NOTE | 2025-10-14 08:18 | PHA.VAN.FU ---
Vancomycin Assessment / Plan
- Assessment
Renal Function: SCR Increasing
WBC's are: Trending Down
In the past 24 hrs, patient has been: Afebrile
Concomitant Antimicrobials: PIPERACILLIN/TAZOBACTAM
- Dosing Plan
Continue: VANCO 1000MG Q12
- Monitoring Plan
Peak Level: 10/14 @2100
Trough Level: 10/15 @0530
- Follow Up
Pharmacy will continue to follow.
Vancomycin Follow UP
- -
Patient Age: 74
Patient Sex: Male
Vancomycin Day #: 2
Indication: Skin And Soft Tissue
Requesting Provider: DR. WEST
Pertinent Antimicrobial Allergies:
SULFA (HIVES, ITCHING
Height / Weight:
Height 5 ft 10 in
Actual Weight 74.072 kg
Pertinent Past Medical History: DM, NONHEALING WOUND, 10/01 LLE BYPASS
- Vital Signs / Lab Results
Temp Pulse Resp BP Pulse Ox
98.4 F 75 20 121/69 90
10/14/25 07:00 10/14/25 07:00 10/14/25 07:00 10/14/25 07:00 10/14/25 07:00
Lab Results - Hematology
10/12/25 10/13/25 10/14/25
16:22 06:02 05:34
WBC 18.5 H 18.2 H 16.9 H
Lab Results - Chemistry
10/12/25 10/13/25 10/14/25
16:22 06:02 05:34
BUN 20 16 15
Creatinine 1.0 0.7 0.9
Estimated Creat Clear 98 77
Albumin 4.0
Microbiology Results
10/12/25 16:22 Blood Culture - Preliminary
Blood/Venous No Growth in 24 hours- Final report to follow
--- NOTE | 2025-10-14 08:45 | W.PN.HOSP.TC ---
Today's Communication/Plan
-
IV antibiotics. Vascular surgery eval.
Assessment / Plan
Assessment / Plan
Physical exam:
General: Acutely ill
HEENT: Normocephalic, Atraumatic and Moist Mucous Membranes
Respiratory: Clear to Auscultation; Negative Wheezes, Rales or Rhonchi
Cardiac: Regular Rhythm and S1/S2
GI: Soft, Nontender and Nondistended
Musculoskeletal: Left lower extremity erythema tenderness and warmth and postop surgical findings. No Clubbing, No Cyanosis and No Edema
Neuro: Awake, Alert and Oriented, no neurological deficits
Psych: Calm
A/P:
Left Lower Extremity Cellulitis
- Change antibiotics to IV Zosyn and vancomycin
- WBC 18.2--->16.9
- Continue to monitor temperature curve, WBC trend, local signs of infection
- Vascular surgery consult pending
-Pain control
- Discussed with daughter over the phone yesterday
Recent Left Fem-Pop Bypass with fluid collection postop
-Peripheral Vascular US: Complex collection in the left thigh near the incision site measure approximately 13cm, which may represent a postoperative seroma or hematoma
-Hgb is stable compared to pre-op, unclear if seroma versus hematoma versus abscess versus other.
- So far hemoglobin remained stable at 13.6
Hyponatremia, mild
-Continue to trend
ASCVD (CAD, PAD, CVA)
-Continue aspirin
-Continue atorvastatin
Chronic HFpEF
-Continue Lasix
-Monitor Daily Weights
Paroxysmal Atrial Fibrillation
-Continue Eliquis
-Continue metoprolol and amiodarone
Diabetes Mellitus, Type II
-HgbA1c 6.7
-Hold metformin
-Monitor sugars and continue coverage insulin
Essential Hypertension
-Continue metoprolol
COPD, mild acute exacerbation
-Recently completed course of steroids
-Continue Pulmicort Neb and DuoNeb QID/PRN in place of Trelegy
Tobacco Use Disorder
-Patient reports smoking 1 pack per week
-Encourage smoking cessation
-Avoid nicotine patch as it can prevent wound healing due to vasoconstriction
DVT proph: Eliquis
Code Status: Full Code
Total time spent on today's encounter was 52 minutes which included time spent in counseling the patient/family regarding diagnosis and treatment plan as listed above, goals of care, and symptom management. Case was discussed with nursing staff,
specialists, and care coordinators/case management. All labs and imaging personally reviewed by me. Remainder the time spent in detailed review of previous records, lab data, imaging, and other medical provider documentation.
Anticipated Discharge: > 48 hours
Subjective/Interval History
-
Date of Service: October 14, 2025
Patient feels better overall, less erythema and tenderness in his leg. No chest pain or shortness of breath. Afebrile
Objective Data
-
Labs:
Laboratory Results
10/14/25
05:34
WBC 16.9 H
Hgb 13.6
Hct 41.8
Plt Count 389
Sodium 133 L
Potassium 3.8
Chloride 92 L
Carbon Dioxide 33 H
BUN 15
Creatinine 0.9
Glucose 134 H
Calcium 8.9
Vital Signs:
Vital Signs
Temp Pulse Resp BP Pulse Ox
98.4 F 75 20 121/69 90
10/14/25 07:00 10/14/25 07:00 10/14/25 07:00 10/14/25 07:00 10/14/25 07:00
I&O
10/13/25 10/14/25 10/15/25
06:59 06:59 06:59
Intake Total 850 / 850
Output Total 300 / 300 1250 / 1250
Balance -300 / -300 -400 / -400
[2025-10-14] MEDS: DUONEB 3 ML INH ×3 (09:57→20:06)
[2025-10-14 11:00] VITALS: BP 118/68
[2025-10-14 11:54] LABS: Glucose - Point of Care 177 mg/dl (70-99)
[2025-10-14] MEDS: NOVOLOG FLEXPEN-LOW RESISTANCE 1 UNITS SC (11:54)
[2025-10-14 15:00] VITALS: BP 116/62
[2025-10-14 16:28] LABS: Glucose - Point of Care 252 mg/dl (70-99)
[2025-10-14] MEDS: NOVOLOG FLEXPEN-LOW RESISTANCE 3 UNITS SC (17:09)
[2025-10-14 19:15] VITALS: BP 123/68
[2025-10-14] MEDS: PULMICORT 0.5 MG INH (20:06)
[2025-10-14] MEDS: REQUIP 0.5 MG PO (20:44)
[2025-10-14] MEDS: LIPITOR 80 MG PO (20:44)
[2025-10-14 21:26] LABS: Glucose - Point of Care 230 mg/dl (70-99)
[2025-10-14 23:12] VITALS: BP 109/74
[2025-10-15] VITALS (7 sets, daily range): BP systolic 115–144; BP diastolic 61–76; BMI 23.2
[2025-10-15] MEDS: ZOSYN 50 IV ×2 (03:28→10:01)
[2025-10-15] MEDS: VANCOCIN 200 IV ×2 (05:03→17:09)
[2025-10-15 06:24] LABS: Blood Urea Nitrogen 15 mg/dl (9-20); Calcium 9.0 mg/dl (8.4-10.2); Carbon Dioxide 37 mmol/L (22-30); Chloride 94 mmol/L (98-107); Estimated Creatinine Clearance 86 ml/min; Glucose 179 mg/dl (70-99); Potassium 4.2 mmol/L (3.5-5.1); Sodium 134 mmol/L (135-145); eGFR > 60.00
[2025-10-15 06:34] LABS: Hematocrit 43.2 % (39.0-52.0); Hemoglobin 13.9 g/dL (13.0-18.0); Mean Corp Hgb Conc. 32.2 g/dL (33.0-37.0); Mean Corpuscular Volume 96.4 fL (80.0-94.0); Nucleated Red Blood Cells % 0 % (-); Platelet Count 380 10^3/uL (130-400); Red Cell Dist. Width 13.7 % (11.5-14.5)
[2025-10-15] MEDS: DUONEB 3 ML INH ×4 (07:21→19:39)
[2025-10-15] MEDS: PULMICORT 0.5 MG INH ×2 (07:21→19:38)
[2025-10-15 07:51] LABS: Glucose - Point of Care 172 mg/dl (70-99)
--- NOTE | 2025-10-15 07:57 | CON.VAS ---
Addendum entered and electronically signed by Cl Riley MD 10/15/25 14:25:
Seen and examined with BRITTNEY Madrigal earlier today. Agree with findings as noted below. Extensive medical history. Admission indications etc. reviewed. Left lower extremity incisions are all clean dry intact. There are no hematomas. No signs of
infection. Mild cellulitic or erythematous skin of the calf. It is similar to the skin of the right calf. Some of it is staple line erythema. Graft function is good with palpable graft pulse and PT pulse distally. Plan/no acute vascular
surgical issue. Edema control, antibiotics if needed for mild cellulitis. Will sign off. Please call with questions.
Original Note:
Consultation
Consultation Request
Date/Time Consultation Performed: 10/15/25729
Requesting Provider: Hospitalist
Performing Provider: JUAN Canales for Cl Riley M.D.
Reason for Consultation: Status post LLE arterial bypass with concern for cellulitis
Medical History
-
Chief Complaint: Left lower extremity redness and swelling
History of Present Illness:
This is a 74-year-old male with significant past medical history for COPD, macrocytic anemia, coronary artery disease, SC, atrial fibrillation, diabetes, hypertension, TIA, hepatitis C, lung nodule, large adrenal gland, peripheral arterial disease,
and heart failure who presents to [facility] on 10/02/2025 with reports of worsening left lower extremity edema and redness s/p Left femoral (profunda) to posterior tibial artery bypass with ipsilateral nonreversed greater
saphenous vein conduit. on 10/01/[address] Cl Riley. Patient is known to our service for recent bypass and prior right femoral endarterectomy with femoral to PT artery bypass in July [address] Cl Riley M.D. Patient endorses that he
believes his wounds is healing better than prior to bypass, but he noted over the past several days increased swelling and redness to his left lower extremity prompting ED evaluation. Patient denies any associated fevers, chill, nausea, and
vomiting. Denies recent illness or trauma. Does endorse difficulty with medical compliance due to limitations in transportation and housing. Does have a history of bilateral lower extremity swelling given heart failure.
Vascular procedure history:
08/04/2023: Right femoral endarterectomy (common femoral artery, profunda femoris artery) with saphenous vein patch angioplasty and profundoplasty. Right femoral to posterior tibial artery bypass with ipsilateral non-reversed greater saphenous vein
conduit.
10/01/2025: Left femoral (profunda) to posterior tibial artery bypass with ipsilateral nonreversed greater saphenous vein conduit. Dr. Cl Riley MD
Past Medical History
Past Medical History: Other (COPD, macrocytic anemia, coronary artery disease, SC, atrial fibrillation, diabetes, hypertension, TIA, hepatitis C, lung nodule, large adrenal gland, peripheral arterial disease, and heart failure)
Past Surgical History: Other (COPD, macrocytic anemia, coronary artery disease, SC, atrial fibrillation, diabetes, hypertension, lung nodule, large adrenal gland, peripheral arterial disease, and heart failure)
Social History
Tobacco: Smoker
Alcohol: Occasional
Drug: Marijuana
Allergies / Home Medications
Allergy/AdvReac Type Severity Reaction Status Date / Time
Sulfa (Sulfonamide Allergy hives,itchi Verified 10/13/25 16:36
Antibiotics) ng
�Medication �Instructions �Recorded �Confirmed �Type
fluticasone fur. 100 mcg-umeclid 1 inh inhalation R QPM 07/25/23 09/26/25 History
62.5 mcg-vilant 25 mcg Lung/Breathing Issues
inhalat.powder (Trelegy Ellipta)
atorvastatin 80 mg tablet 80 mg PO HS High Cholesterol 07/26/23 09/26/25 History
folic acid 1 mg tablet 1 mg PO DAILY Supplement 07/16/24 09/26/25 History
amiodarone 200 mg tablet 200 mg PO DAILY Arrhythmia 30 days 07/24/24 09/26/25 Rx
#30 tabs
apixaban 5 mg tablet (Eliquis) 5 mg PO BID Blood clot 07/24/24 09/26/25 Rx
prevention/tx 30 days #60 tabs
thiamine HCl (vitamin B1) 100 mg 100 mg PO DAILY Supplement 08/18/24 09/26/25 History
tablet
ferrous sulfate 325 mg (65 mg 325 mg PO DAILY #30 tabs 08/23/24 09/26/25 Rx
iron) tablet
ropinirole 0.5 mg tablet 0.5 mg PO HS #30 tabs 08/23/24 09/26/25 Rx
pantoprazole 40 mg tablet,delayed 40 mg PO DAILY Gastrointestinal 11/30/24 09/26/25 Rx
release issue 1 month #30 tabs
metformin 500 mg tablet 500 mg PO DAILY Diabetes 12/02/24 09/26/25 History
furosemide 40 mg tablet 60 mg PO BID AT 0800,1600 HF 09/26/25 09/26/25 History
aspirin 81 mg chewable tablet 81 mg PO DAILY #90 tabs 10/03/25 Rx
nicotine 21 mg/24 hr daily 21 mg transdermal DAILY #30 ea 10/05/25 Rx
transdermal patch
oxycodone 5 mg tablet 5 mg PO Q4HPRN PRN moderate pain 10/05/25 Rx
#15 tabs
prednisone 10 mg tablet 10 mg PO DIRECTED #9 tabs 10/05/25 Rx
metoprolol tartrate 50 mg tablet 50 mg PO BID 10/12/25 History
Review of Systems
-
History Source: Patient
Constitutional: Reports No Symptoms
EENT: Reports No Symptoms
Respiratory: Reports No Symptoms
Cardiac: Reports No Symptoms
Vascular: Reports Other (Left lower extremity swelling with redness)
Abdomen/GI: Reports No Symptoms
: Reports No Symptoms
Musculoskeletal: Reports No Symptoms
Skin: Reports Other (Left lower extremity heel thickness and posterior calf wound chronic)
Neurological: Reports No Symptoms
Endocrine: Reports No Symptoms
Physical Exam
Vital Signs
Temp Pulse Resp BP Pulse Ox
97.6 F 61 16 115/61 94
10/15/25 03:05 10/15/25 07:24 10/15/25 07:24 10/15/25 03:05 10/15/25 07:24
Lab Results
10/15/25 06:00
10/15/25 06:00
Physical Exam
General: No Apparent Distress
HEENT: Normocephalic, Anicteric and Atraumatic
Respiratory: Non Labored Respirations (Currently receiving respiratory treatment)
Cardiac: Negative JVD
GI: Soft, Non Tender and Non Distended
Musculoskeletal: Edema (Trace bilateral lower extremity edema, patient also endorses that lower extremity swelling has been vastly improved since being admitted to the hospital)
Skin: Warm, Dry and Other (Bilateral shins with redness, dry and scaled skin, posterior left calf wound, left lower extremity staple sites clean, dry, and intact)
Neuro: AO x 3
Pulses: Left Posterior Tibial: +1 (Palpable bypass pulse and left PT)
Assessment / Plan
-
Assessment: 74-year-old male status post Left femoral (profunda) to posterior tibial artery bypass with ipsilateral nonreversed greater saphenous vein conduit with Dr. Cl Riley MD on 10/01/2025, admitted for left calf cellulitis and edema
Plan:
All surgical site incisions clean, dry, and intact no evidence of infection at surgical sites. Patient was to have outpatient follow-up appointment tomorrow for staple removal, will return today to remove all remberto. New follow-up placed on
discharge instructions.
Patient seen and examined with Dr. Cl Riley M.D., above plan reviewed with attending.
[2025-10-15] MEDS: MIRALAX 17 GRAMS PO (08:27)
[2025-10-15] MEDS: MUCINEX 600 MG PO ×2 (08:27→20:08)
[2025-10-15] MEDS: LOPRESSOR 50 MG PO ×2 (08:28→20:07)
[2025-10-15] MEDS: ELIQUIS 5 MG PO ×2 (08:28→20:05)
[2025-10-15] MEDS: LOW STRENGTH ASPIRIN 81 MG PO (08:28)
[2025-10-15] MEDS: FEOSOL 325 MG PO (08:28)
[2025-10-15] MEDS: LASIX 60 MG PO ×2 (08:28→16:36)
[2025-10-15] MEDS: FOLVITE 1 MG PO (08:28)
[2025-10-15] MEDS: SENOKOT 8.6 MG PO ×2 (08:28→20:07)
[2025-10-15] MEDS: VITAMIN B1 100 MG PO (08:28)
[2025-10-15] MEDS: PROTONIX 40 MG PO (08:28)
[2025-10-15] MEDS: PACERONE 200 MG PO (08:28)
[2025-10-15] MEDS: NOVOLOG FLEXPEN-LOW RESISTANCE 1 UNITS SC ×2 (08:29→12:24)
--- NOTE | 2025-10-15 10:34 | PHA.VAN.FU ---
Vancomycin Assessment / Plan
- Assessment
Renal Function: Stable
WBC's are: Trending Down (13 from 16.9)
In the past 24 hrs, patient has been: Afebrile
Concomitant Antimicrobials: Zosyn
- Dosing Plan
Continue: 1000MG Q12H
- Monitoring Plan
Peak Level: 10/15/25 @2100
Trough Level: 10/16/25 @0530
- Follow Up
Pharmacy will continue to follow.
Vancomycin Follow UP
- -
Patient Age: 74
Patient Sex: Male
Vancomycin Day #: 3
Indication: Skin And Soft Tissue
Requesting Provider: DR. WEST
Pertinent Antimicrobial Allergies:
SULFA (HIVES, ITCHING
Height / Weight:
Height 5 ft 10 in
Actual Weight 73.227 kg
Pertinent Past Medical History: DM, NONHEALING WOUND, 10/01 LLE BYPASS
- Vital Signs / Lab Results
Temp Pulse Resp BP Pulse Ox
99 F 57 16 128/61 98
10/15/25 08:03 10/15/25 08:03 10/15/25 08:37 10/15/25 08:03 10/15/25 08:03
Lab Results - Hematology
10/12/25 10/13/25 10/14/25
16: 06:02 05:34
WBC 18.5 H 18.2 H 16.9 H
10/15/25
06:00
WBC 13.0 H
Lab Results - Chemistry
10/12/25 10/13/25 10/14/25
16: 06:02 05:34
BUN 20 16 15
Creatinine 1.0 0.7 0.9
Estimated Creat Clear 98 77
Albumin 4.0
10/15/25
06:00
BUN 15
Creatinine 0.8
Estimated Creat Clear 86
Albumin
Microbiology Results
10/12/25 16:22 Blood Culture - Preliminary
Blood/Venous No Growth in 48 hours- Final report to follow
Therapeutic Drug Monitoring
Vancomycin Peak Cancelled 10/14/25 21:00
Vancomycin Trough Cancelled 10/15/25 06:00
--- NOTE | 2025-10-15 11:19 | W.PN.HOSP.TC ---
Today's Communication/Plan
-
narrow antibiotics
appreciate Vascular Surgery
Assessment / Plan
Assessment / Plan
Physical exam:
General: Acutely ill
HEENT: Normocephalic, Atraumatic and Moist Mucous Membranes
Respiratory: Clear to Auscultation; Negative Wheezes, Rales or Rhonchi
Cardiac: Regular Rhythm and S1/S2
GI: Soft, Nontender and Nondistended
Musculoskeletal: Left lower extremity erythema tenderness and warmth and postop surgical findings. No Clubbing, No Cyanosis and No Edema
Neuro: Awake, Alert and Oriented, no neurological deficits
Psych: Calm
US:
FINDINGS/IMPRESSION:
The left common femoral, femoral, popliteal, and posterior tibial veins are patent. No sonographic evidence for deep venous thrombosis.
Limited visualization of the left peroneal vein.
Complex collection in the left thigh near the incision site measuring approximately 13 cm in length, which may represent a postoperative seroma or hematoma.
A/P:
Left Lower Extremity Cellulitis
Recent Left Fem-Pop Bypass with fluid collection postop
-abx broadened to vanc/zosyn; narrow today to Vanc/Cefazolin
-WBC improving
- Vascular surgery consult appreciated; remberto to be removed later today
Hyponatremia, mild
-Continue to trend
ASCVD (CAD, PAD, CVA)
-Continue aspirin
-Continue atorvastatin
Chronic HFpEF
-Continue Lasix
-Monitor Daily Weights
Paroxysmal Atrial Fibrillation
-Continue Eliquis
-Continue metoprolol and amiodarone
Diabetes Mellitus, Type II
-HgbA1c 6.7
-Hold metformin
-Monitor sugars and continue coverage insulin
Essential Hypertension
-Continue metoprolol
COPD, mild acute exacerbation
-Recently completed course of steroids
-Continue Pulmicort Neb and DuoNeb QID/PRN in place of Trelegy
Tobacco Use Disorder
-Patient reports smoking 1 pack per week
-Encourage smoking cessation
-Avoid nicotine patch as it can prevent wound healing due to vasoconstriction
DVT proph: Eliquis
Code Status: Full Code
Total time spent on today's encounter was 52 minutes which included time spent in counseling the patient/family regarding diagnosis and treatment plan as listed above, goals of care, and symptom management. Case was discussed with nursing staff,
specialists, and care coordinators/case management. All labs and imaging personally reviewed by me. Remainder the time spent in detailed review of previous records, lab data, imaging, and other medical provider documentation.
Anticipated Discharge: 24 - 48 hours
Subjective/Interval History
-
Date of Service: October 15, 2025
left leg pain slowly improving
Objective Data
-
Labs:
Laboratory Results
10/15/25
06:00
WBC 13.0 H
Hgb 13.9
Hct 43.2
Plt Count 380
Sodium 134 L
Potassium 4.2
Chloride 94 L
Carbon Dioxide 37 H
BUN 15
Creatinine 0.8
Glucose 179 H
Calcium 9.0
Vital Signs:
Vital Signs
Temp Pulse Resp BP Pulse Ox
99 F 57 16 128/61 98
10/15/25 08:03 10/15/25 08:03 10/15/25 08:37 10/15/25 08:03 10/15/25 08:35
I&O
10/14/25 10/15/25 10/16/25
06:59 06:59 06:59
Intake Total 850 / 850 1979 / 1979
Output Total 1250 / 1250 3550 / 3550
Balance -400 / -400 -1570 / -1570
Review of Systems
-
History Source: Patient
All other systems: Reviewed and negative
Physical Exam
-
General: Well Developed and No Apparent Distress
HEENT: Normocephalic, Atraumatic and Moist Mucous Membranes
Respiratory: Rhonchi; Negative Wheezes
Cardiac: Regular Rhythm and S1/S2; Negative Murmur, Rub or Gallop
GI: Soft, Nontender, Nondistended and Normal Bowel Sounds; Negative Organomegaly
Rectal: Deferred by Provider
Musculoskeletal: Other (left leg with fluid colleciton left thigh; remberto from surgical incision intact )
Skin: Negative Rash
Neuro: Nonfocal/Grossly Intact
Psych: Calm
Data Reviewed
-
Diagnostic Radiology: Report Reviewed by me
Labs: Labs Reviewed by me
[2025-10-15 12:11] LABS: Glucose - Point of Care 198 mg/dl (70-99)
--- NOTE | 2025-10-15 15:40 | W.PN.UPDATE ---
Update Note
Progress Note Update
Patient 2 weeks postop, left lower extremity surgical Maria D removed preoperative attending Dr. Cl Riley M.D. Few Steri-Strips placed for extra support at saphenectomy site, all skin edges well-approximated and clean, dry, and intact. Follow-up
in office as scheduled.
--- NOTE | 2025-10-15 15:57 | CM ---
Admission changed patient address in system .
Pt is home with [facility]
His nephew Thaddeus will drive home home.
PLAN Home with [facility]
[2025-10-15] MEDS: ANCEF 10 IV ×2 (16:35→23:58)
[2025-10-15 17:05] LABS: Glucose - Point of Care 290 mg/dl (70-99)
[2025-10-15] MEDS: NOVOLOG FLEXPEN-LOW RESISTANCE 3 UNITS SC (17:09)
[2025-10-15] MEDS: ROXICODONE 10 MG PO ×2 (20:04→23:57)
[2025-10-15] MEDS: REQUIP 0.5 MG PO (20:06)
[2025-10-15] MEDS: LIPITOR 80 MG PO (20:07)
[2025-10-15 21:36] LABS: Glucose - Point of Care 210 mg/dl (70-99)
[2025-10-16 03:38] VITALS: BP 136/72
[2025-10-16 06:00] VITALS: BMI 23.3
[2025-10-16] MEDS: VANCOCIN 200 IV (06:05)
[2025-10-16 06:22] LABS: Hematocrit 43.6 % (39.0-52.0); Hemoglobin 14.2 g/dL (13.0-18.0); Mean Corp Hgb Conc. 32.6 g/dL (33.0-37.0); Mean Corpuscular Volume 98.2 fL (80.0-94.0); Nucleated Red Blood Cells % 0 % (-); Platelet Count 364 10^3/uL (130-400); Red Cell Dist. Width 13.6 % (11.5-14.5)
[2025-10-16 06:29] LABS: Blood Urea Nitrogen 16 mg/dl (9-20); Calcium 9.7 mg/dl (8.4-10.2); Carbon Dioxide 37 mmol/L (22-30); Chloride 95 mmol/L (98-107); Estimated Creatinine Clearance 98 ml/min; Glucose 151 mg/dl (70-99); Potassium 3.8 mmol/L (3.5-5.1); Sodium 135 mmol/L (135-145); eGFR > 60.00
[2025-10-16] MEDS: PULMICORT 0.5 MG INH (06:33)
[2025-10-16] MEDS: DUONEB 3 ML INH ×2 (06:33→10:44)
[2025-10-16 07:00] VITALS: BP 145/69
[2025-10-16 07:04] LABS: Glucose - Point of Care 225 mg/dl (70-99)
[2025-10-16] MEDS: MIRALAX 17 GRAMS PO (07:45)
[2025-10-16] MEDS: ANCEF 10 IV (07:45)
[2025-10-16] MEDS: NOVOLOG FLEXPEN-LOW RESISTANCE 2 UNITS SC ×2 (07:48→12:15)
[2025-10-16] MEDS: VITAMIN B1 100 MG PO (07:49)
[2025-10-16] MEDS: LOPRESSOR 50 MG PO (07:49)
[2025-10-16] MEDS: MUCINEX 600 MG PO (07:49)
[2025-10-16] MEDS: FEOSOL 325 MG PO (07:49)
[2025-10-16] MEDS: PROTONIX 40 MG PO (07:49)
[2025-10-16] MEDS: LASIX 60 MG PO (07:49)
[2025-10-16] MEDS: LOW STRENGTH ASPIRIN 81 MG PO (07:49)
[2025-10-16] MEDS: PACERONE 200 MG PO (07:50)
[2025-10-16] MEDS: FOLVITE 1 MG PO (07:50)
[2025-10-16] MEDS: SENOKOT 8.6 MG PO (07:50)
[2025-10-16] MEDS: ELIQUIS 5 MG PO (07:50)
--- NOTE | 2025-10-16 08:17 | PHA.VAN.FU ---
Vancomycin Assessment / Plan
- Assessment
Renal Function: Stable (0.7 from 0.8)
WBC's are: Stable (12.8 from 13)
In the past 24 hrs, patient has been: Afebrile
Concomitant Antimicrobials: Cefazolin
- Assessment - Therapeutic Drug Monitoring
Peak level was drawn: More than 3 hours after previous dose (Dose administered at 1709, peak drawn 2150)
Trough Drawn: Appropriately
Levels were drawn: At steady state
Calculated AUC (mcg*h/mL): 445
Calculated ke: 0.0540
Calculated half life (H): 12.8
Calculated Vd (L): 83.27
Calculated Vanc CL (ml/min): 74.91
- Dosing Plan
Continue: 1000MG Q12H
- Monitoring Plan
Next Level Due (Date): 10/22/25
- Follow Up
Pharmacy will continue to follow.
Vancomycin Follow UP
- -
Patient Age: 74
Patient Sex: Male
Vancomycin Day #: 4
Indication: Skin And Soft Tissue
Requesting Provider: DR. WEST
Pertinent Antimicrobial Allergies:
SULFA (HIVES, ITCHING
Height / Weight:
Height 5 ft 10 in
Actual Weight 73.595 kg
Pertinent Past Medical History: DM, NONHEALING WOUND, 10/01 LLE BYPASS
- Vital Signs / Lab Results
Temp Pulse Resp BP Pulse Ox
97.6 F 64 20 145/69 91
10/16/25 07:00 10/16/25 07:00 10/16/25 07:00 10/16/25 07:00 10/16/25 07:00
Lab Results - Hematology
10/14/25 10/15/25 10/16/25
05:34 06:00 06:04
WBC 16.9 H 13.0 H 12.8 H
Lab Results - Chemistry
10/14/25 10/15/25 10/16/25
05:34 06:00 06:04
BUN 15 15 16
Creatinine 0.9 0.8 0.7
Estimated Creat Clear 77 86 98
Microbiology Results
10/12/25 16:22 Blood Culture - Preliminary
Blood/Venous No Growth in 72 hours- Final report to follow
Therapeutic Drug Monitoring
Vancomycin Peak 20.1 ug/ml (18-26) 10/15/25 21:50
Vancomycin Trough 12.9 ug/ml (5-20) 10/16/25 06:03
--- NOTE | 2025-10-16 10:14 | W.PN.HOSP.TC ---
Today's Communication/Plan
-
DC today after med rec complete - 4 more days Keflex + Doxy
Assessment / Plan
Assessment / Plan
Physical exam:
General: Acutely ill
HEENT: Normocephalic, Atraumatic and Moist Mucous Membranes
Respiratory: Clear to Auscultation; Negative Wheezes, Rales or Rhonchi
Cardiac: Regular Rhythm and S1/S2
GI: Soft, Nontender and Nondistended
Musculoskeletal: Left lower extremity erythema tenderness and warmth and postop surgical findings. No Clubbing, No Cyanosis and No Edema
Neuro: Awake, Alert and Oriented, no neurological deficits
Psych: Calm
US:
FINDINGS/IMPRESSION:
The left common femoral, femoral, popliteal, and posterior tibial veins are patent. No sonographic evidence for deep venous thrombosis.
Limited visualization of the left peroneal vein.
Complex collection in the left thigh near the incision site measuring approximately 13 cm in length, which may represent a postoperative seroma or hematoma.
A/P:
Left Lower Extremity Cellulitis
Recent Left Fem-Pop Bypass with fluid collection postop
-abx broadened to vanc/zosyn; narrow today to Vanc/Cefazolin. s/p 3 days antibiotics - DC on 4 more days Keflex + Doxy
-WBC improving - can repeat as outpatient in one week
-Vascular surgery consult appreciated; remberto removed, no e/o intra-op infection. OK for DC
Hyponatremia, mild
-Continue to trend
ASCVD (CAD, PAD, CVA)
-Continue aspirin
-Continue atorvastatin
Chronic HFpEF
-Continue Lasix
-Monitor Daily Weights
Paroxysmal Atrial Fibrillation
-Continue Eliquis
-Continue metoprolol and amiodarone
Diabetes Mellitus, Type II
-HgbA1c 6.7
-Hold metformin
-Monitor sugars and continue coverage insulin
Essential Hypertension
-Continue metoprolol
COPD, mild acute exacerbation
-Recently completed course of steroids
-Continue Pulmicort Neb and DuoNeb QID/PRN in place of Trelegy
Tobacco Use Disorder
-Patient reports smoking 1 pack per week
-Encourage smoking cessation
-Avoid nicotine patch as it can prevent wound healing due to vasoconstriction
DVT proph: Eliquis
Code Status: Full Code
Total time spent on today's encounter was 52 minutes which included time spent in counseling the patient/family regarding diagnosis and treatment plan as listed above, goals of care, and symptom management. Case was discussed with nursing staff,
specialists, and care coordinators/case management. All labs and imaging personally reviewed by me. Remainder the time spent in detailed review of previous records, lab data, imaging, and other medical provider documentation.
Anticipated Discharge: Today
Subjective/Interval History
-
Date of Service: October 16, 2025
feeling well and hoping to go home today
Objective Data
-
Labs:
Laboratory Results
10/16/25
06:04
WBC 12.8 H
Hgb 14.2
Hct 43.6
Plt Count 364
Sodium 135
Potassium 3.8
Chloride 95 L
Carbon Dioxide 37 H
BUN 16
Creatinine 0.7
Glucose 151 H
Calcium 9.7
Vital Signs:
Vital Signs
Temp Pulse Resp BP Pulse Ox
97.6 F 64 20 145/69 91
10/16/25 07:00 10/16/25 07:00 10/16/25 07:00 10/16/25 07:00 10/16/25 07:00
I&O
10/15/25 10/16/25 10/17/25
06:59 06:59 06:59
Intake Total 1979 / 1979 1680 / 1680 900 / 900
Output Total 3550 / 3550 2725 / 2725 300 / 300
Balance -1570 / -1570 -1045 / -1045 600 / 600
Review of Systems
-
History Source: Patient
All other systems: Reviewed and negative
Physical Exam
-
General: Well Developed and No Apparent Distress
HEENT: Normocephalic, Atraumatic and Moist Mucous Membranes
Respiratory: Rhonchi; Negative Wheezes
Cardiac: Regular Rhythm and S1/S2; Negative Murmur, Rub or Gallop
GI: Soft, Nontender, Nondistended and Normal Bowel Sounds; Negative Organomegaly
Rectal: Deferred by Provider
Musculoskeletal: Other (left leg with fluid colleciton left thigh; remberto from surgical incision intact; redness improving )
Skin: Negative Rash
Neuro: Nonfocal/Grossly Intact
Psych: Calm
Data Reviewed
-
Diagnostic Radiology: Report Reviewed by me
Labs: Labs Reviewed by me
--- NOTE | 2025-10-16 10:50 | W.DS.TRANS ---
DC Summary - [facility]
-
Discharge Instructions:
Sleep Apnea Risk Intermediate
Discharge Diagnosis/Procedures Left lower extremity cellulitis
Diet Regular
Activity As tolerated
Driving Restrictions As prior to admission
Bathing Restrictions None
Blood Work CBC in one week
Others Tests Your repeat arterial ultrasound study is on 11/06
at 1pm here at [facility]
Health
Instructions:
Stand-Alone Forms:
Changes to Home Medications: Yes
Discharge Medications:
DC Medications w/original date entered in [employer]
fluticasone fur. 100 mcg-umeclid 62.5 mcg-vilant 25 mcg inhalat.powder (Trelegy Ellipta) 1 inh inhalation R QPM Lung/Breathing Issues 07/25/23
atorvastatin 80 mg tablet 80 mg PO HS High Cholesterol 07/26/23
folic acid 1 mg tablet 1 mg PO DAILY Supplement 07/16/24
amiodarone 200 mg tablet 200 mg PO DAILY Arrhythmia 30 days #30 tabs 07/24/24
apixaban 5 mg tablet (Eliquis) 5 mg PO BID Blood clot prevention/tx 30 days #60 tabs 07/24/24
thiamine HCl (vitamin B1) 100 mg tablet 100 mg PO DAILY Supplement 08/18/24
ferrous sulfate 325 mg (65 mg iron) tablet 325 mg PO DAILY #30 tabs 08/23/24
ropinirole 0.5 mg tablet 0.5 mg PO HS #30 tabs 08/23/24
pantoprazole 40 mg tablet,delayed release 40 mg PO DAILY Gastrointestinal issue 1 month #30 tabs 11/30/24
metformin 500 mg tablet 500 mg PO DAILY Diabetes 12/02/24
furosemide 40 mg tablet 60 mg PO BID AT 0800,1600 HF 09/26/25
aspirin 81 mg chewable tablet 81 mg PO DAILY #90 tabs 10/03/25
nicotine 21 mg/24 hr daily transdermal patch 21 mg transdermal DAILY #30 ea 10/05/25
oxycodone 5 mg tablet 5 mg PO Q4HPRN PRN moderate pain #15 tabs 10/05/25
metoprolol tartrate 50 mg tablet 50 mg PO BID 10/12/25
cephalexin 500 mg capsule 500 mg PO QID #16 caps 10/16/25
doxycycline hyclate 100 mg capsule 100 mg PO Q12 #8 caps 10/16/25
Home Medication Changes
You are prescribed 4 more days of Keflex and Doxycycline.
Pending Results: No
[2025-10-16 11:00] VITALS: BP 136/73
[2025-10-16 11:41] LABS: Glucose - Point of Care 244 mg/dl (70-99)
--- NOTE | 2025-10-16 12:00 | CM ---
entered order for discharge.
IMM reviewed with patient , He agrees with dc today.
Isabel from [facility] aware of correct address and dc today
His nephew Thaddeus will drive home home.
PLAN Home with [facility]
[2025-10-16] MEDS: KEFLEX 500 MG PO (12:14)
--- NOTE | 2025-10-16 13:11 | W.DCSUMMARY ---
Discharge Summary
Discharge Data
Date of Admission: 10/12/25
Date of Discharge: 10/16/25
-
Pending Results: No
Hospital Course
Discharging Physician : Dr. Mary Grace Loepz
Disposition : Home with Home Health
Principal Discharge diagnosis : Left Leg Cellulitis
Hospital Course :
Mr. Ross Nelson is a 74 yo man with hx CAD, HFpEF, paroxysmal afib on Eliquis, essential HTN, DM II, tobacco use, recent admission 09/26-10/05 for PAD with chronic nonhealing LLE wound s/p femoral-popliteal bypass 10/01/25 presents to the ER with
increasing pain and redness of his leg.
In the emergency department he was afebrile, blood pressure was 160/80 with a pulse of 79 and oxygen saturation of 96%. CBC shows a persistently elevated leukocytosis to 18.5, hemoglobin and platelets were normal and unchanged from prior.
Electrolytes and BUN and creatinine were unremarkable glucose was 280.
Patient had ultrasound of the lower extremities which showed left common femoral, femoral, popliteal, and posterior tibial veins are patent. No sonographic evidence for deep venous thrombosis.
Limited visualization of the left peroneal vein. Complex collection in the left thigh near the incision site measuring approximately 13 cm in length, which may represent a postoperative seroma or hematoma.
Patient was admitted to medicine and started on IV antibiotics. He was evaluated by Vascular surgery. His remberto were removed, no sign of deeper infection. Graft function noted to be good with palpable graft pulse and PT pulse distally.
Patient's leukocytosis improved. Repeat CBC to be done in one week. He is discharged on 4 more days of oral antibiotics: Doxycycline and Keflex.
PT recommended HH.
Time spent on discharge was 31 minutes.
Important imaging findings :
LLE US 10/12/25
FINDINGS/IMPRESSION:
The left common femoral, femoral, popliteal, and posterior tibial veins are patent. No sonographic evidence for deep venous thrombosis.
Limited visualization of the left peroneal vein.
Complex collection in the left thigh near the incision site measuring approximately 13 cm in length, which may represent a postoperative seroma or hematoma.
CR Heel/os Calcis
IMPRESSION:
No acute osseous abnormality.
Trace posterior calcaneal spur, similar to prior.
Procedure findings :
Discharge Plan
-
Patient Disposition: Home with Home Care
Discharge Diagnosis/Procedures: Left lower extremity cellulitis
Diet: Regular
Activity: As tolerated
Driving Restrictions: As prior to admission
Bathing Restrictions: None
Blood Work: CBC in one week
Others Tests: Your repeat arterial ultrasound study is on 11/06/2025 at 1pm here at [facility]
Referrals:
Cl Riley MD [Active, Vascular Surgery] - 11/13/25 2:30 pm
UNKNOWN - PT DOES,NOT KNOW [Family Provider]
Additional Discharge Medication Instructions: Please follow up with your PCP in one week
You are prescribed 4 more days of Keflex and Doxycycline.
Prescriptions:
New
doxycycline hyclate 100 mg Capsule
100 mg PO Q12 Qty: 8 0RF
cephalexin 500 mg Capsule
500 mg PO QID Qty: 16 0RF
Continued
Trelegy Ellipta 100-62.5-25 mcg Blister With Device
1 inh INHALATION R QPM
atorvastatin 80 mg Tablet
80 mg PO HS
folic acid 1 mg tablet
1 mg PO DAILY
Eliquis 5 mg Tablet
5 mg PO BID 30 Days Qty: 60 0RF
Patient Comments:
pt unsure of last dose
amiodarone 200 mg Tablet
200 mg PO DAILY 30 Days Qty: 30 0RF
Patient Comments:
pt unsure of last dose
thiamine HCl (vitamin B1) 100 mg Tablet
100 mg PO DAILY
ferrous sulfate 325 mg (65 mg iron) tablet
325 mg PO DAILY Qty: 30 0RF
ropinirole 0.5 mg tablet
0.5 mg PO HS Qty: 30 0RF
pantoprazole 40 mg Tablet,Delayed Release (Dr/Ec)
40 mg PO DAILY 30 Days Qty: 30 0RF
metformin 500 mg tablet
500 mg PO DAILY
furosemide 40 mg tablet
60 mg PO BID AT 0800,1600
aspirin 81 mg Tablet,Chewable
81 mg PO DAILY Qty: 90 0RF
nicotine 21 mg/24 hr Patch 24 Hour
21 mg transdermal DAILY Qty: 30 0RF
oxycodone 5 mg Tablet
5 mg PO Q4HPRN PRN (Reason: moderate pain) Qty: 15 0RF
metoprolol tartrate 50 mg Tablet
50 mg PO BID
Discontinued
prednisone 10 mg tablet
10 mg PO DIRECTED Qty: 9 0RF
Patient Comments:
last dose 10/12 PM
Rx Instructions:
30 mg for one day
20 mg for 2 days
10 mg for 2 days
Discharge Orders:
Discharge Patient (As Directed); Ordered 10/16/25
Ordered By: Mary Grace Lopez
Discharge Date and Time
Print Language: CONGOLESE
[2025-10-16 13:12] VITALS: BP 129/73; PULSE 69; O2SAT 93
== END 2025-10-16 14:08 | disposition home health service (06) | DRG 603 ==
LOC: 4 EAST ACU 23:48
PROVIDERS: Hospitalist; Physician Assistant Medical; Student in an Organized Health Care Education/Training Program; ADMITTING PHYSICIAN Internal Medicine; ATTENDING PHYSICIAN Student in an Organized Health Care Education/Training Program; EMERGENCY PHYSICIAN Emergency Medicine
DX: L03.116 Cellulitis of left lower limb (principal); E87.1 Hypo-osmolality and hyponatremia; I50.32 Chronic diastolic (congestive) heart failure; J44.1 Chronic obstructive pulmonary disease with (acute) exacerbation; M96.841 Postprocedural hematoma of a musculoskeletal structure following other procedure; E11.51 Type 2 diabetes mellitus with diabetic peripheral angiopathy without gangrene; E78.00 Pure hypercholesterolemia, unspecified; I25.10 Atherosclerotic heart disease of native coronary artery without angina pectoris; F17.210 Nicotine dependence, cigarettes, uncomplicated; G47.33 Obstructive sleep apnea (adult) (pediatric); I11.0 Hypertensive heart disease with heart failure; I48.0 Paroxysmal atrial fibrillation; Z79.01 Long term (current) use of anticoagulants; Z79.82 Long term (current) use of aspirin; Z79.84 Long term (current) use of oral hypoglycemic drugs; Z79.899 Other long term (current) drug therapy; Z86.73 Personal history of transient ischemic attack (TIA), and cerebral infarction without residual deficits; Z95.5 Presence of coronary angioplasty implant and graft
CPT/HCPCS: 73650; 80048; 80053; 80202; 82962; 85025; 85027; 87040; 93971; 94640; 96374; 97116; 97162; 99284; 99406